=== PATIENT | female | born 1955 | race Caucasian/White ===

== ENCOUNTER 2017-01-24 18:11 | Inpatient (IN) | payer MEDICARE, MEDICAID ==
[2017-01-24] MEDS ORDERED: Albuterol/Ipratropium NEB.SOL* Albuterol 2.5 MG/Ipratropium 0.5 MG 3 ML INH ONE ×2 (19:00→20:54)
[2017-01-24] MEDS ORDERED: methylPREDNISolone 125 MG* 2 ML VIAL IV ONE (19:00)
[2017-01-24 19:31] LABS: Hematocrit 36 % (35-47); Hemoglobin 11.4 g/dl (12.0-16.0); Mean Corpuscular HGB Conc 32 g/dl (31-36); Mean Corpuscular Hemoglobin 27 pg (27-31); Mean Corpuscular Volume 84 fL (80-97); Mean Platelet Volume 9 um3 (7.4-10.4); Red Blood Count 4.27 10^6/ul (4.0-5.4); Red Cell Distribution Width 16 % (10.5-15); White Blood Count 7.2 10^3/ul (3.5-10.8)
--- NOTE | 2017-01-24 19:36 | RAD ---
Indication: Shortness of breath. Single frontal view of the chest performed at 1905 hours was reviewed. Comparison is made with previous exam dated April 16, 2016. No mediastinal shift is noted. Heart is of normal size and configuration. Lung florence appear clear. IMPRESSION: NO ACTIVE CARDIOPULMONARY DISEASE IS NOTED.
[2017-01-24 19:46] LABS: Albumin 3.6 g/dL (3.2-5.2); BUN/Creatinine Ratio 8.5 (8-20); Calcium 9.1 mg/dL (8.6-10.3); EGFR African American 91.8 (>60); EGFR Non-African American 71.4 (>60); Globulin 2.4 g/dL (2-4); Potassium 4.5 mmol/L (3.5-5.0); Total Bilirubin 0.4 mg/dL (0.2-1.0)
[2017-01-24] MEDS ORDERED: Nicotine Inhaler* 10 MG AMP INH ONE (21:39)
[2017-01-24] MEDS ORDERED: Mouth Piece, Nicotine* 1 EACH CARTRIDGE ONE (21:49)
--- NOTE | 2017-01-24 22:46 | ED ---
Elkin Laboy Erika, scribed for Elliott Tang MD on 01/24/17 at 1946 . Shortness of Breath - HPI Summary HPI Summary: Patient is a 61-year-old female presenting to the ED with a CC of SOB for the past few weeks, worse the past few days. SOB is constant but is aggravated by exertion. She denies fever. Pt was given a nebulizer by EMS which slightly improved symptoms. Pt is a smoker who is trying to quit - she is down to 1/2 PPD. Hx COPD. Pt uses an inhaler. She is not currently taking prednisone. - History of Current Complaint Chief Complaint: EDShortnessOfBreath Time Seen by Provider: 01/24/17 18:23 Hx Obtained From: Patient Onset/Duration: Gradual Onset, Lasting Weeks, Worse Since - 2 days Timing: Constant Current Severity: Moderate Dyspnea At: Exertion - Allergy/Home Medications Allergies/Adverse Reactions: Allergies Allergy/AdvReac Type Severity Reaction Status Date / Time Bupropion [From Wellbutrin] Allergy Severe Agitation Verified 04/02/16 11:47 Cephalosporins Allergy Severe Agitation Verified 04/02/16 11:47 Penicillins [PCN] Allergy Intermediate Hives Verified 04/02/16 11:47 Chlorpromazine AdvReac Severe Diarrhea Verified 04/02/16 11:47 Erythromycin AdvReac Intermediate Diarrhea Verified 04/02/16 11:47 Tobramycin AdvReac Intermediate Diarrhea Verified 04/02/16 11:47 Home Medications: Home Medications Albuterol Sulfate [Proair Respiclick] 108 mcg IN Q4H PRN 01/24/17 [History Confirmed 01/24/17] Fluticasone/Vilanterol MDI(NF) [Breo Ellipta MDI (NF)] 1 puff INH DAILY [History Confirmed 01/24/17] Metoprolol Tartrate [Lopressor] 25 mg PO BID 01/24/17 [History Confirmed ] Warfarin TAB(*) [Coumadin TAB(*)] 5 mg PO DAILY 01/24/17 [History Confirmed ] PMH/Surg Hx/FS Hx/Imm Hx Endocrine/Hematology History: Reports: Hx Anticoagulant Therapy, Other Endocrine /Hematological Disorders - L leg DVT Denies: Hx Diabetes, Hx Systemic Lupus Erythematosus, Hx Thyroid Disease Cardiovascular History: Reports: Hx Angina, Hx Coronary Artery Disease, Hx Deep Vein Thrombosis, Hx Hypercholesterolemia, Hx Hypertension, Hx Peripheral Vascular Disease, Other Cardiovascular Problems/Disorders - PERIPHERAL ARTERY DISEASE Denies: Hx Congestive Heart Failure, Hx Pacemaker/ICD Respiratory History: Reports: Hx Asthma, Hx Chronic Bronchitis, Hx Chronic Obstructive Pulmonary Disease (COPD), Hx Pneumonia, Hx Seasonal Allergies, Other Respiratory Problems/Disorders - Emphysema Denies: Hx Cystic Fibrosis, Hx Lung Cancer, Hx Pleural Effusion, Hx Pulmonary Edema, Hx Pulmonary Embolism, Hx Sleep Apnea GI History: Reports: Hx Gall Bladder Disease - removed, Hx Gastroesophageal Reflux Disease, Hx Irritable Bowel, Other GI Disorders - hernia repair X 2 Denies: Hx Cirrhosis, Hx Crohn's Disease, Hx Diverticulosis History: Denies: Hx Dialysis, Hx Renal Disease Musculoskeletal History: Denies: Hx Arthritis, Hx Rheumatoid Arthritis, Hx Osteoporosis Sensory History: Reports: Hx Contacts or Glasses Denies: Hx Glaucoma, Hx Deafness, Hx Hearing Aid, Hx Hearing Problem Opthamlomology History: Reports: Hx Contacts or Glasses Denies: Hx Glaucoma Neurological History: Denies: Hx Headaches, Hx Seizures, Hx Transient Ischemic Attacks (TIA) Psychiatric History: Reports: Hx Anxiety, Hx Depression, Hx Inpatient Treatment , Hx Community Mental Health Tx, Hx Schizophrenia, Hx Bipolar Disorder, Hx Suicide Attempt Denies: Hx Eating Disorder, Hx Panic Disorder, Hx of Violent Episodes Against Others - Cancer History Hx Chemotherapy: No - Surgical History Surgery Procedure, Year, and Place: bilat thumb repairs, hernia repairs X 2, cholecystectomy, appendectomy Hx Anesthesia Reactions: No - Immunization History Date of Tetanus Vaccine: unknown Infectious Disease History: No Infectious Disease History: Denies: Hx Clostridium Difficile, Hx Hepatitis, Hx Human Immunodeficiency Virus (HIV), Hx Shingles, Hx Tuberculosis, Traveled Outside the [place] in Last 30 Days - Family History Known Family History: Negative: Cardiac Disease, Hypertension, Diabetes - Social History Alcohol Use: Rare Hx Substance Use: No Substance Use Type: Reports: None Hx Tobacco Use: Yes Smoking Status (MU): Heavy Every Day Tobacco Smoker Type: Cigarettes Amount Used/How Often: half a pack a day Have You Smoked in the Last Year: Yes Review of Systems Negative: Fever Positive: Shortness Of Breath All Other Systems Reviewed And Are Negative: Yes Physical Exam Triage Information Reviewed: Yes Vital Signs On Initial Exam: Initial Vitals Temp Pulse Resp BP Pulse Ox 98.9 F 90 24 101/52 95 01/24/17 18:17 01/24/17 18:17 01/24/17 18:17 01/24/17 18:17 01/24/17 18:17 Vital Signs Reviewed: Yes Appearance: Positive: Well-Appearing - but appears older than her stated age, No Pain Distress Skin: Positive: Warm, Skin Color Reflects Adequate Perfusion, Dry Head/Face: Positive: Normal Head/Face Inspection Eyes: Positive: Normal ENT: Positive: Normal ENT inspection Neck: Positive: Supple, Nontender Respiratory/Lung Sounds: Positive: Decreased Breath Sounds, Wheezes, Other - Tachypnic Cardiovascular: Positive: RRR Abdomen Description: Positive: Nontender, Soft Bowel Sounds: Positive: Present Musculoskeletal: Positive: Normal Neurological: Positive: Normal Psychiatric: Positive: Affect/Mood Appropriate Diagnostics - Vital Signs Vital Signs Temp Pulse Resp BP Pulse Ox 01/24/17 18:17 98.9 F 90 24 101/52 95 - Laboratory Lab Results: Lab Results 01/24/17 01/24/17 01/24/17 Range/Units 19:20 19:20 19:20 WBC 7.2 (3.5-10.8) 10^3/ul RBC 4.27 (4.0-5.4) 10^6/ul Hgb 11.4 L (12.0-16.0) g/dl Hct 36 (35-47) % MCV 84 (80-97) fL MCH 27 (27-31) pg MCHC 32 (31-36) g/dl RDW 16 H (10.5-15) % Plt Count 153 (150-450) 10^3/ul MPV 9 (7.4-10.4) um3 Neut % (Auto) 67.3 (38-83) % Lymph % (Auto) 21.8 L (25-47) % [place] % (Auto) 6.8 (1-9) % Eos % (Auto) 2.7 (0-6) % Baso % (Auto) 1.4 (0-2) % Absolute Neuts (auto) 4.9 (1.5-7.7) 10^3/ul Absolute Lymphs (auto) 1.6 (1.0-4.8) 10^3/ul Absolute Monos (auto) 0.5 (0-0.8) 10^3/ul Absolute Eos (auto) 0.2 (0-0.6) 10^3/ul Absolute Basos (auto) 0.1 (0-0.2) 10^3/ul Absolute Nucleated RBC 0 10^3/ul Nucleated RBC % 0 D-Dimer, Quantitative < 200 (Less Than 230) ng/mL Sodium 139 (133-145) mmol/L Potassium 4.5 (3.5-5.0) mmol/L Chloride 107 (101-111) mmol/L Carbon Dioxide 31 (22-32) mmol/L Anion Gap 1 L (2-11) mmol/L BUN 7 (6-24) mg/dL Creatinine 0.82 (0.51-0.95) mg/dL Est GFR ( Amer) 91.8 (>60) Est GFR (Non-Af Amer) 71.4 (>60) BUN/Creatinine Ratio 8.5 (8-20) Glucose 93 (70-100) mg/dL Lactic Acid (0.5-2.0) mmol/L Calcium 9.1 (8.6-10.3) mg/dL Total Bilirubin 0.40 (0.2-1.0) mg/dL AST 9 L (13-39) U/L ALT 5 L (7-52) U/L Alkaline Phosphatase 96 (34-104) U/L Troponin I 0.00 (<0.04) ng/mL B-Natriuretic Peptide ( - 100) pg/mL Total Protein 6.0 L (6.4-8.9) g/dL Albumin 3.6 (3.2-5.2) g/dL Globulin 2.4 (2-4) g/dL Albumin/Globulin Ratio 1.5 (1-3) 01/24/17 01/24/17 Range/Units 19:20 19:20 WBC (3.5-10.8) 10^3/ul RBC (4.0-5.4) 10^6/ul Hgb (12.0-16.0) g/dl Hct (35-47) % MCV (80-97) fL MCH (27-31) pg MCHC (31-36) g/dl RDW (10.5-15) % Plt Count (150-450) 10^3/ul MPV (7.4-10.4) um3 Neut % (Auto) (38-83) % Lymph % (Auto) (25-47) % [place] % (Auto) (1-9) % Eos % (Auto) (0-6) % Baso % (Auto) (0-2) % Absolute Neuts (auto) (1.5-7.7) 10^3/ul Absolute Lymphs (auto) (1.0-4.8) 10^3/ul Absolute Monos (auto) (0-0.8) 10^3/ul Absolute Eos (auto) (0-0.6) 10^3/ul Absolute Basos (auto) (0-0.2) 10^3/ul Absolute Nucleated RBC 10^3/ul Nucleated RBC % D-Dimer, Quantitative (Less Than 230) ng/mL Sodium (133-145) mmol/L Potassium (3.5-5.0) mmol/L Chloride (101-111) mmol/L Carbon Dioxide (22-32) mmol/L Anion Gap (2-11) mmol/L BUN (6-24) mg/dL Creatinine (0.51-0.95) mg/dL Est GFR ( Amer) (>60) Est GFR (Non-Af Amer) (>60) BUN/Creatinine Ratio (8-20) Glucose (70-100) mg/dL Lactic Acid 0.8 (0.5-2.0) mmol/L Calcium (8.6-10.3) mg/dL Total Bilirubin (0.2-1.0) mg/dL AST (13-39) U/L ALT (7-52) U/L Alkaline Phosphatase (34-104) U/L Troponin I (<0.04) ng/mL B-Natriuretic Peptide 19 ( - 100) pg/mL Total Protein (6.4-8.9) g/dL Albumin (3.2-5.2) g/dL Globulin (2-4) g/dL Albumin/Globulin Ratio (1-3) Result Diagrams: 01/24/17 19:20 01/24/17 19:20 Lab Statement: Any lab studies that have been ordered have been reviewed, and results considered in the medical decision making process. - Radiology CXR Radiology Interpretation Completed By: Radiologist - IMPRESSION: NO ACTIVE CARDIOPULMONARY DISEASE IS NOTED. - EKG 18:31 Cardiac Rate: NL - at 91 bpm EKG Rhythm: Sinus Rhythm ST Segment: Non-Specific Course/Dx - Course Course Of Treatment: She improved some here with treatment but not enough to turn around. I have no evidence of acute infection. - Diagnoses Provider Diagnoses: COPD exacerbation - Physician Notifications Discussed Care of Patient With: Dr. Hugo (hospitalist) at 21:50 - agrees to admit - Critical Care Time Critical Care Time: 30-74 min Discharge - Discharge Plan Condition: Stable Disposition: ADMITTED TO [facility] Referrals: Tom Schrader MD [Primary Care Provider] - The documentation as recorded by the Elkin kiran Erika accurately reflects the service I personally performed and the decisions made by me, Elliott Tang MD.
--- NOTE | 2017-01-24 23:44 | HP ---
H&P (Free Text) History and Physical: PCP: Reuben Schrader MD Date/Time of Evaluation: 01/24/2017 9511 CC: SOB HPI: Mrs Camejo is a 61YO female HX COPD presenting with 2-3 days of worseng SOB and cough associated with subjective F/C, sweats, & diarrhea. She denies N/V , chest pain, palpitations, light-headedness, or other issues. SOB is worse with exertion, better with rest and albuterol. She continues to smoke 1/2 PPD, but is attempting cessation. PMedHx COPD PAOD HTN HLD HX DVT IBS bipolar disorder schizophrenia anxiety depression Ambulatory Orders Montelukast Sodium TAB* [Singulair 10 MG TAB*] 10 mg PO DAILY 10/29/12 Esomeprazole(NF) [Nexium(NF)] 40 mg PO DAILY 09/29/15 Al Hydrox/Mg Hydrox/Simet LIQ* [Maalox Plus*] 30 ml PO DAILY PRN 12/29/15 Fellows Carbonate ER TAB* 300 mg PO BID 12/29/15 Mirtazapine 7.5 mg PO BEDTIME 12/30/15 OLANzapine TAB* [Zyprexa 10 MG TAB*] 20 mg PO BEDTIME 12/30/15 Albuterol Sulfate [Proair Respiclick] 2 puff INH Q4H PRN 01/03/16 Atorvastatin* [Lipitor 10 MG*] 10 mg PO 1700 #30 tab 01/10/16 Isosorbide Mononitrate ER TAB* [Imdur ER TAB*] 30 mg PO DAILY #30 tab.er Gabapentin [Neurontin] 100 mg PO BID 01/19/16 Albuterol Sulfate [Proair Respiclick] 108 mcg IN Q4H PRN 01/24/17 Fluticasone/Vilanterol MDI(NF) [Breo Ellipta MDI (NF)] 1 puff INH DAILY Metoprolol Tartrate [Lopressor] 25 mg PO BID 01/24/17 Warfarin TAB(*) [Coumadin TAB(*)] 5 mg PO DAILY 01/24/17 Allergies Bupropion [From Wellbutrin] Allergy (Severe, Verified 04/02/16 11:47) Agitation seizures. Cephalosporins Allergy (Severe, Verified 04/02/16 11:47) Agitation seizures. Penicillins [PCN] Allergy (Intermediate, Verified 04/02/16 11:47) Hives Chlorpromazine Adverse Reaction (Severe, Verified 04/02/16 11:47) Diarrhea and hives. Erythromycin Adverse Reaction (Intermediate, Verified 04/02/16 11:47) Diarrhea Tobramycin Adverse Reaction (Intermediate, Verified 04/02/16 11:47) Diarrhea PSurgHx appendectomy hernia repair RLE stent SocHx: 1/2 PPD cigarettes w/ ~40PYHX, denies alcohol and recreational drugs; single, lives alone; full code status FamHx: positive for COPD, HTN, HLD, CAD ROS: as above, otherwise reviewed and all were negative Constitutional: NAD, normally developed, obese white female vitals: Vital Signs Temp 36.3 C 01/24/17 23:56 Pulse 95 01/25/17 00:00 Resp 26 01/24/17 23:56 BP 127/63 01/25/17 00:00 Pulse Ox 94 01/25/17 00:00 Intake & Output 01/24/17 01/24/17 01/25/17 11:59 23:59 11:59 Intake Total 2 Balance 2 Weight 77.7 kg Intake: IV Fluids 2 HEENM: atraumatic; sclera/conjunctiva: non-icteric/clear; hearing: clinically intact; oropharynx: clear, mucosa moist Neck: soft tissue: non-tender; thyroid: normal Pulmonary: moderate end-inspiratory and end-expiratory wheeze, fair to poor aeration, no accessory muscle use CV: RR/RR, normal S1S2, no carotid bruit, no jugular venous distention, 2+ B DP/ PT, no edema Abdominal: soft, non-distended, non-tender, no rebound/guarding/rigidity, normoactive bowel sounds, no hepatosplenomegaly or masses, no costovertebral angle tenderness Musculoskeletal: general: grossly intact; gait: stable Integumental: normal appearance and texture of exposed skin Psychiatric orientation: AA&O to PPS affect: calm mood: cooperative eye contact: good content: reliable responses: timely insight: fair to poor Testing: Lab Results 01/24/17 01/24/17 01/24/17 Range/Units 19:20 19:20 19:20 WBC 7.2 (3.5-10.8) 10^3/ul RBC 4.27 (4.0-5.4) 10^6/ul Hgb 11.4 L (12.0-16.0) g/dl Hct 36 (35-47) % MCV 84 (80-97) fL MCH 27 (27-31) pg MCHC 32 (31-36) g/dl RDW 16 H (10.5-15) % Plt Count 153 (150-450) 10^3/ul MPV 9 (7.4-10.4) um3 Neut % (Auto) 67.3 (38-83) % Lymph % (Auto) 21.8 L (25-47) % Rich % (Auto) 6.8 (1-9) % Eos % (Auto) 2.7 (0-6) % Baso % (Auto) 1.4 (0-2) % Absolute Neuts (auto) 4.9 (1.5-7.7) 10^3/ul Absolute Lymphs (auto) 1.6 (1.0-4.8) 10^3/ul Absolute Monos (auto) 0.5 (0-0.8) 10^3/ul Absolute Eos (auto) 0.2 (0-0.6) 10^3/ul Absolute Basos (auto) 0.1 (0-0.2) 10^3/ul Absolute Nucleated RBC 0 10^3/ul Nucleated RBC % 0 D-Dimer, Quantitative < 200 (Less Than 230) ng/mL Sodium 139 (133-145) mmol/L Potassium 4.5 (3.5-5.0) mmol/L Chloride 107 (101-111) mmol/L Carbon Dioxide 31 (22-32) mmol/L Anion Gap 1 L (2-11) mmol/L BUN 7 (6-24) mg/dL Creatinine 0.82 (0.51-0.95) mg/dL Est GFR ( Amer) 91.8 (>60) Est GFR (Non-Af Amer) 71.4 (>60) BUN/Creatinine Ratio 8.5 (8-20) Glucose 93 (70-100) mg/dL Lactic Acid (0.5-2.0) mmol/L Calcium 9.1 (8.6-10.3) mg/dL Total Bilirubin 0.40 (0.2-1.0) mg/dL AST 9 L (13-39) U/L ALT 5 L (7-52) U/L Alkaline Phosphatase 96 (34-104) U/L Troponin I 0.00 (<0.04) ng/mL B-Natriuretic Peptide ( - 100) pg/mL Total Protein 6.0 L (6.4-8.9) g/dL Albumin 3.6 (3.2-5.2) g/dL Globulin 2.4 (2-4) g/dL Albumin/Globulin Ratio 1.5 (1-3) 01/24/17 01/24/17 Range/Units 19:20 19:20 WBC (3.5-10.8) 10^3/ul RBC (4.0-5.4) 10^6/ul Hgb (12.0-16.0) g/dl Hct (35-47) % MCV (80-97) fL MCH (27-31) pg MCHC (31-36) g/dl RDW (10.5-15) % Plt Count (150-450) 10^3/ul MPV (7.4-10.4) um3 Neut % (Auto) (38-83) % Lymph % (Auto) (25-47) % Rich % (Auto) (1-9) % Eos % (Auto) (0-6) % Baso % (Auto) (0-2) % Absolute Neuts (auto) (1.5-7.7) 10^3/ul Absolute Lymphs (auto) (1.0-4.8) 10^3/ul Absolute Monos (auto) (0-0.8) 10^3/ul Absolute Eos (auto) (0-0.6) 10^3/ul Absolute Basos (auto) (0-0.2) 10^3/ul Absolute Nucleated RBC 10^3/ul Nucleated RBC % D-Dimer, Quantitative (Less Than 230) ng/mL Sodium (133-145) mmol/L Potassium (3.5-5.0) mmol/L Chloride (101-111) mmol/L Carbon Dioxide (22-32) mmol/L Anion Gap (2-11) mmol/L BUN (6-24) mg/dL Creatinine (0.51-0.95) mg/dL Est GFR ( Amer) (>60) Est GFR (Non-Af Amer) (>60) BUN/Creatinine Ratio (8-20) Glucose (70-100) mg/dL Lactic Acid 0.8 (0.5-2.0) mmol/L Calcium (8.6-10.3) mg/dL Total Bilirubin (0.2-1.0) mg/dL AST (13-39) U/L ALT (7-52) U/L Alkaline Phosphatase (34-104) U/L Troponin I (<0.04) ng/mL B-Natriuretic Peptide 19 ( - 100) pg/mL Total Protein (6.4-8.9) g/dL Albumin (3.2-5.2) g/dL Globulin (2-4) g/dL Albumin/Globulin Ratio (1-3) ECG, personally reviewed: NSR rate 91, Q-waves in II/III/AVF CXR, personally reviewed: IMPRESSION: NO ACTIVE CARDIOPULMONARY DISEASE IS NOTED. Impression: 61F presenting with COPD exacerbation DIAGNOSIS & PLAN Primary COPD exacerbation : albuterol nebs : mometasone/formoterol : tiotropium : methylprednisolone : guaifenesin : azithromycin : incentive spirometry : smoking cessation : supplemental oxygen : supportive care Secondary HTN : continue metoprolol HLD : continue atorvastatin HX DVT : continue warfarin bipolar disorder : no acute issues : continue lithium schizophrenia : no acute issues : continue olanzapine depression : continue mirtazapine GERD : omeprazole Admission Rational: observation for COPD exacerbation DVTp: warfarin Code Status: full
[2017-01-25] MEDS ORDERED: Albuterol 2.5 MG/3 ML NEB.SOL* (0.083%) INH PRN (02:30)
[2017-01-25] MEDS ORDERED: Acetaminophen TAB* 325 MG PO PRN (02:30)
[2017-01-25] MEDS ORDERED: Melatonin (NF) 3 MG TAB PO PRN (02:30)
[2017-01-25] MEDS ORDERED: Ondansetron INJ* 2 MG/ML VIAL IV PRN (02:31)
[2017-01-25] MEDS: Azithromycin TAB* 250 MG PO SCH ×2 (03:06→08:58)
[2017-01-25] MEDS: NS 0.9% 1000 ML* 1,000 ML IV SCH ×2 (03:06→16:33)
[2017-01-25] MEDS: Nicotine Inhaler* 10 MG AMP INH PRN ×3 (03:08→16:40)
[2017-01-25] MEDS: Omeprazole CAP* 20 MG PO SCH (05:41)
[2017-01-25] MEDS ORDERED: Albuterol 2.5 MG/3 ML NEB.SOL* (0.083%) INH SCH (07:00)
[2017-01-25] MEDS: Mometasone/Formoter 200/5 MDI INH SCH ×2 (08:07→20:51)
[2017-01-25] MEDS: Tiotropium CAP.INH* CAP.INH/18 MCG INH SCH (08:08)
[2017-01-25] MEDS ORDERED: Spiriva Inhaler DEVICE* 1 EACH DEVICE INH ONE (09:00)
[2017-01-25] MEDS: Gabapentin CAP(*) 100 MG PO SCH ×2 (09:14→20:05)
[2017-01-25] MEDS: Docusate CAP* 100 MG PO SCH ×2 (09:14→20:04)
[2017-01-25] MEDS: Isosorbide Mononitrate ER TAB* 30 MG PO SCH (09:15)
[2017-01-25] MEDS: guaiFENesin ER TAB 600 MG PO SCH ×2 (09:15→20:04)
[2017-01-25] MEDS: Montelukast Sodium TAB* 10 MG PO SCH (09:16)
[2017-01-25] MEDS: Metoprolol Tartrate TAB* 25 MG PO SCH ×2 (09:16→20:08)
[2017-01-25] MEDS: CMCS Lithium Carbonate ER (NF) 300 MG TAB.ER PO SCH ×2 (09:19→20:06)
[2017-01-25] MEDS: predniSONE TAB* 20 MG PO SCH (10:30)
--- NOTE | 2017-01-25 13:33 | PN ---
Subjective Date of Service: 01/25/17 Interval History: Ms. Camejo continues to report shortness of breath and cough. She does not feel that she is back to her baseline though she has improved a bit since admission. She denies chest pain. She denies nausea or abdominal pain and is tolerating oral intake well. Family History: Unchanged from Admission Social History: Unchanged from Admission Past Medical History: Unchanged from Admission Objective Active Medications: Acetaminophen (Tylenol Tab*) 650 mg PO Q6H PRN Albuterol (Ventolin 2.5 Mg/3 Ml Neb.Tania*) 2.5 mg INH Q2H PRN Atorvastatin Calcium (Lipitor*) 10 mg PO 1700 ELI Azithromycin (Zithromax Tab*) 500 mg PO DAILY ELI Docusate Sodium (Colace Cap*) 200 mg PO BID ELI Gabapentin (Neurontin Cap(*)) 100 mg PO BID ELI Guaifenesin (Mucinex*) 1,200 mg PO BID ELI Sodium Chloride (Ns 0.9% 1000 Ml*) 1,000 mls @ 75 mls/hr IV PER RATE ELI Isosorbide Mononitrate (Imdur Er Tab*) 30 mg PO DAILY ELI Bedford Carbonate ([place]ford Carbonate Er (Nf)) 300 mg PO BID ELI Melatonin (Melatonin (Nf)) 3 mg PO BEDTIME PRN; Protocol Metoprolol Tartrate (Lopressor Tab*) 25 mg PO BID ELI Mirtazapine (Remeron Tab*) 7.5 mg PO BEDTIME ELI Mometasone Furoate/Formoterol Fumar (Dulera 200/5 Mdi*) 2 puff INH BID ELI Montelukast Sodium (Singulair Tab*) 10 mg PO DAILY ELI Nicotine (Nicotine Inhaler*) 10 mg INH Q2H PRN Olanzapine (Zyprexa Tab*) 20 mg PO BEDTIME ELI Omeprazole (Prilosec Cap*) 20 mg PO DAILY@0600 ELI Ondansetron HCl (Zofran Inj*) 4 mg IV Q6H PRN Prednisone (Deltasone Tab*) 40 mg PO DAILY ELI Tiotropium [place] (Spiriva Cap.Inh*) 1 cap INH DAILY ELI Warfarin Sodium (Coumadin Tab(*)) 5 mg PO 1700 ELI Vital Signs 01/24/17 01/24/17 01/25/17 23:45 23:56 00:00 Temperature 97.4 F Pulse Rate 94 99 95 Respiratory 26 26 Rate Blood Pressure 121/52 157/47 127/63 (mmHg) O2 Sat by Pulse 91 96 94 Oximetry 01/25/17 01/25/17 01/25/17 03:15 08:07 09:14 Temperature 97.6 F 97.6 F Pulse Rate 95 91 Respiratory 24 15 16 Rate Blood Pressure 142/64 135/72 (mmHg) O2 Sat by Pulse 91 97 Oximetry 01/25/17 01/25/17 01/25/17 09:25 11:14 11:45 Temperature 97.9 F Pulse Rate 94 66 Respiratory 18 16 Rate Blood Pressure 133/59 (mmHg) O2 Sat by Pulse 94 99 Oximetry Oxygen Devices in Use Now: None Appearance: Female lying in bed in NAD Eyes: No Scleral Icterus Ears/Nose/Mouth/Throat: Mucous Membranes Moist Respiratory: Symmetrical Chest Expansion and Respiratory Effort, - - Coarse breath sounds that cleared well with cough, no wheeze Cardiovascular: NL Sounds; No Murmurs; No JVD, No Edema Abdominal: NL Sounds; No Tenderness; No Distention Extremities: No Edema Skin: No Rash or Ulcers Neurological: Alert and Oriented x 3, NL Muscle Strength and Tone Nutrition: Taking PO's Result Diagrams: 01/24/17 19:20 01/24/17 19:20 Additional Lab and Data: Lab Results 01/24/17 01/24/17 01/24/17 Range/Units 19:20 19:20 19:20 WBC 7.2 (3.5-10.8) 10^3/ul RBC 4.27 (4.0-5.4) 10^6/ul Hgb 11.4 L (12.0-16.0) g/dl Hct 36 (35-47) % MCV 84 (80-97) fL MCH 27 (27-31) pg MCHC 32 (31-36) g/dl RDW 16 H (10.5-15) % Plt Count 153 (150-450) 10^3/ul MPV 9 (7.4-10.4) um3 Neut % (Auto) 67.3 (38-83) % Lymph % (Auto) 21.8 L (25-47) % Nolan % (Auto) 6.8 (1-9) % Eos % (Auto) 2.7 (0-6) % Baso % (Auto) 1.4 (0-2) % Absolute Neuts (auto) 4.9 (1.5-7.7) 10^3/ul Absolute Lymphs (auto) 1.6 (1.0-4.8) 10^3/ul Absolute Monos (auto) 0.5 (0-0.8) 10^3/ul Absolute Eos (auto) 0.2 (0-0.6) 10^3/ul Absolute Basos (auto) 0.1 (0-0.2) 10^3/ul Absolute Nucleated RBC 0 10^3/ul Nucleated RBC % 0 D-Dimer, Quantitative < 200 (Less Than 230) ng/mL Sodium 139 (133-145) mmol/L Potassium 4.5 (3.5-5.0) mmol/L Chloride 107 (101-111) mmol/L Carbon Dioxide 31 (22-32) mmol/L Anion Gap 1 L (2-11) mmol/L BUN 7 (6-24) mg/dL Creatinine 0.82 (0.51-0.95) mg/dL Est GFR ( Amer) 91.8 (>60) Est GFR (Non-Af Amer) 71.4 (>60) BUN/Creatinine Ratio 8.5 (8-20) Glucose 93 (70-100) mg/dL Lactic Acid (0.5-2.0) mmol/L Calcium 9.1 (8.6-10.3) mg/dL Total Bilirubin 0.40 (0.2-1.0) mg/dL AST 9 L (13-39) U/L ALT 5 L (7-52) U/L Alkaline Phosphatase 96 (34-104) U/L Troponin I 0.00 (<0.04) ng/mL B-Natriuretic Peptide ( - 100) pg/mL Total Protein 6.0 L (6.4-8.9) g/dL Albumin 3.6 (3.2-5.2) g/dL Globulin 2.4 (2-4) g/dL Albumin/Globulin Ratio 1.5 (1-3) 01/24/17 01/24/17 Range/Units 19:20 19:20 WBC (3.5-10.8) 10^3/ul RBC (4.0-5.4) 10^6/ul Hgb (12.0-16.0) g/dl Hct (35-47) % MCV (80-97) fL MCH (27-31) pg MCHC (31-36) g/dl RDW (10.5-15) % Plt Count (150-450) 10^3/ul MPV (7.4-10.4) um3 Neut % (Auto) (38-83) % Lymph % (Auto) (25-47) % Nolan % (Auto) (1-9) % Eos % (Auto) (0-6) % Baso % (Auto) (0-2) % Absolute Neuts (auto) (1.5-7.7) 10^3/ul Absolute Lymphs (auto) (1.0-4.8) 10^3/ul Absolute Monos (auto) (0-0.8) 10^3/ul Absolute Eos (auto) (0-0.6) 10^3/ul Absolute Basos (auto) (0-0.2) 10^3/ul Absolute Nucleated RBC 10^3/ul Nucleated RBC % D-Dimer, Quantitative (Less Than 230) ng/mL Sodium (133-145) mmol/L Potassium (3.5-5.0) mmol/L Chloride (101-111) mmol/L Carbon Dioxide (22-32) mmol/L Anion Gap (2-11) mmol/L BUN (6-24) mg/dL Creatinine (0.51-0.95) mg/dL Est GFR ( Amer) (>60) Est GFR (Non-Af Amer) (>60) BUN/Creatinine Ratio (8-20) Glucose (70-100) mg/dL Lactic Acid 0.8 (0.5-2.0) mmol/L Calcium (8.6-10.3) mg/dL Total Bilirubin (0.2-1.0) mg/dL AST (13-39) U/L ALT (7-52) U/L Alkaline Phosphatase (34-104) U/L Troponin I (<0.04) ng/mL B-Natriuretic Peptide 19 ( - 100) pg/mL Total Protein (6.4-8.9) g/dL Albumin (3.2-5.2) g/dL Globulin (2-4) g/dL Albumin/Globulin Ratio (1-3) Assess/Plan/Problems-Billing Assessment: Ms. Camejo is a 61 yo female with a PMH of COPD and bipolar disorder who was admitted on 01/24/17 with copd exacerbation. - Patient Problems (1) COPD exacerbation Comment: Improving slowly. Suspect anxiety playing significant component as well as persistent smoking. Continue prednisone, azithromycin, duonebs, spiriva, and dulera. Home O2 at night. (2) Adjustment disorder with mixed anxiety and depressed mood Comment: Continue home meds. (3) Nicotine dependence Comment: Smoking cessation strongly encouraged, > 5 minutes spend in counseling. (4) Hx of deep venous thrombosis Comment: Increased coumadin based on subtherapeutic INR. (5) Full code status (6) DVT prophylaxis Comment: Coumadin with SCDs. Status and Disposition: Switch to inpatient with need for additional night in hospital based on slow progress of tx for COPD exacerbation. Anticipate discharge to home when medically stable.
[2017-01-25] MEDS ORDERED: Warfarin TAB(*) 6 MG PO SCH (17:00)
[2017-01-25] MEDS ORDERED: Warfarin TAB(*) 5 MG PO SCH (17:00)
[2017-01-25] MEDS ORDERED: Atorvastatin* 10 MG TAB PO SCH (17:00)
[2017-01-25] MEDS ORDERED: Mirtazapine TAB* 15 MG PO SCH (21:00)
[2017-01-25] MEDS ORDERED: OLANzapine TAB* 10 MG PO SCH (21:00)
[2017-01-26] MEDS: NS 0.9% 1000 ML* 1,000 ML IV SCH (06:25)
[2017-01-26] MEDS: Omeprazole CAP* 20 MG PO SCH (06:25)
[2017-01-26] MEDS: Mometasone/Formoter 200/5 MDI INH SCH (07:27)
[2017-01-26] MEDS: Tiotropium CAP.INH* CAP.INH/18 MCG INH SCH (07:27)
[2017-01-26 07:51] VITALS: BP 115/56
[2017-01-26] MEDS ORDERED: methylPREDNISolone SOD 40 MG* 1 ML VIAL IV SCH (09:00)
[2017-01-26] MEDS: Nicotine Inhaler* 10 MG AMP INH PRN (09:50)
[2017-01-26] MEDS: Gabapentin CAP(*) 100 MG PO SCH (09:51)
[2017-01-26] MEDS: Docusate CAP* 100 MG PO SCH (09:51)
[2017-01-26] MEDS: Metoprolol Tartrate TAB* 25 MG PO SCH (09:52)
[2017-01-26] MEDS: Montelukast Sodium TAB* 10 MG PO SCH (09:52)
[2017-01-26] MEDS: guaiFENesin ER TAB 600 MG PO SCH (09:52)
[2017-01-26] MEDS: Isosorbide Mononitrate ER TAB* 30 MG PO SCH (09:52)
[2017-01-26] MEDS: predniSONE TAB* 20 MG PO SCH (09:53)
[2017-01-26] MEDS: CMCS Lithium Carbonate ER (NF) 300 MG TAB.ER PO SCH (09:55)
[2017-01-26] MEDS: Azithromycin TAB* 250 MG PO SCH (09:56)
--- NOTE | 2017-01-26 10:34 | PN ---
Subjective Date of Service: 01/26/17 Interval History: Ms. Camejo states that she is feeling better though she is not quite back to her baseline. She feels safe with the idea of going home and is considering staying with her son for a few days. She continues to have shortness of breath with ambulation but it has improved. She denies chest pain, nausea, or abdominal pain and is tolerating oral intake well. Family History: Unchanged from Admission Social History: Unchanged from Admission Past Medical History: Unchanged from Admission Objective Active Medications: Acetaminophen (Tylenol Tab*) 650 mg PO Q6H PRN PRN Reason: FEVER/PAIN Albuterol (Ventolin 2.5 Mg/3 Ml Neb.Tania*) 2.5 mg INH Q2H PRN PRN Reason: SOB/WHEEZING Atorvastatin Calcium (Lipitor*) 10 mg PO 1700 [facility] Last Admin: 01/25/17 16:40 Dose: 10 mg Azithromycin (Zithromax Tab*) 500 mg PO DAILY [facility] Stop: 01/28/17 09:01 Last Admin: 01/26/17 09:56 Dose: 500 mg Docusate Sodium (Colace Cap*) 200 mg PO BID [facility] Last Admin: 01/26/17 09:51 Dose: 200 mg Gabapentin (Neurontin Cap(*)) 100 mg PO BID [facility] Last Admin: 01/26/17 09:51 Dose: 100 mg Guaifenesin (Mucinex*) 1,200 mg PO BID [facility] Last Admin: 01/26/17 09:52 Dose: 1,200 mg Sodium Chloride (Ns 0.9% 1000 Ml*) 1,000 mls @ 75 mls/hr IV PER RATE [facility] Last Admin: 01/26/17 06:25 Dose: 75 mls/hr Isosorbide Mononitrate (Imdur Er Tab*) 30 mg PO DAILY [facility] Last Admin: 01/26/17 09:52 Dose: 30 mg [place] Carbonate ([place] Carbonate Er (Nf)) 300 mg PO BID [facility] Last Admin: 01/26/17 09:55 Dose: 300 mg Melatonin (Melatonin (Nf)) 3 mg PO BEDTIME PRN; Protocol PRN Reason: Sleep Metoprolol Tartrate (Lopressor Tab*) 25 mg PO BID [facility] Last Admin: 01/26/17 09:52 Dose: 25 mg Mirtazapine (Remeron Tab*) 7.5 mg PO BEDTIME [facility] Last Admin: 01/25/17 20:06 Dose: 7.5 mg Mometasone Furoate/Formoterol Fumar (Dulera 200/5 Mdi*) 2 puff INH BID [facility] Last Admin: 01/26/17 07:27 Dose: 2 puff Montelukast Sodium (Singulair Tab*) 10 mg PO DAILY [facility] Last Admin: 01/26/17 09:52 Dose: 10 mg Nicotine (Nicotine Inhaler*) 10 mg INH Q2H PRN PRN Reason: CRAVING Last Admin: 01/26/17 09:50 Dose: 10 mg Olanzapine (Zyprexa Tab*) 20 mg PO BEDTIME [facility] Last Admin: 01/25/17 20:07 Dose: 20 mg Omeprazole (Prilosec Cap*) 20 mg PO DAILY@0600 [facility] Last Admin: 01/26/17 06:25 Dose: 20 mg Ondansetron HCl (Zofran Inj*) 4 mg IV Q6H PRN PRN Reason: NAUSEA Last Admin: 01/25/17 05:45 Dose: 4 mg Pharmacy Profile Note (Coumadin Daily Reminder*) 1 note FOLLOW UP 1700 [facility] Last Admin: 01/25/17 16:44 Dose: 1 note Prednisone (Deltasone Tab*) 40 mg PO DAILY [facility] Last Admin: 01/26/17 09:53 Dose: 40 mg Tiotropium Central (Spiriva Cap.Inh*) 1 cap INH DAILY [facility] Last Admin: 01/26/17 07:27 Dose: 1 inh Warfarin Sodium (Coumadin Tab(*)) 6 mg PO 1700 [facility] PRN Reason: Protocol Last Admin: 01/25/17 16:40 Dose: 6 mg Vital Signs 01/25/17 01/25/17 01/25/17 15:19 19:24 19:36 Temperature 97.7 F 98.3 F Pulse Rate 57 84 Respiratory 22 18 20 Rate Blood Pressure 133/50 123/53 (mmHg) O2 Sat by Pulse 97 96 Oximetry 01/25/17 01/25/17 01/25/17 20:05 22:05 23:19 Temperature 98.2 F Pulse Rate 58 Respiratory 17 20 28 Rate Blood Pressure 128/47 (mmHg) O2 Sat by Pulse 99 Oximetry 01/26/17 01/26/17 01/26/17 00:00 03:27 07:29 Temperature 98.2 F 98.2 F Pulse Rate 61 63 Respiratory 24 22 Rate Blood Pressure 145/54 115/56 (mmHg) O2 Sat by Pulse 99 100 99 Oximetry 01/26/17 01/26/17 08:00 09:51 Temperature Pulse Rate Respiratory 20 20 Rate Blood Pressure (mmHg) O2 Sat by Pulse Oximetry Oxygen Devices in Use Now: None Appearance: Female sitting up in bed in NAD Eyes: No Scleral Icterus Ears/Nose/Mouth/Throat: Mucous Membranes Moist Neck: Trachea Midline Respiratory: Symmetrical Chest Expansion and Respiratory Effort, - - Minimal wheezing noted to left base, otherwise clear Cardiovascular: NL Sounds; No Murmurs; No JVD, No Edema Abdominal: NL Sounds; No Tenderness; No Distention Lymphatic: No Cervical Adenopathy Extremities: No Edema Skin: No Rash or Ulcers Neurological: Alert and Oriented x 3 Nutrition: Taking PO's Result Diagrams: 01/24/17 19:20 01/24/17 19:20 Additional Lab and Data: Lab Results 01/24/17 01/24/17 01/24/17 Range/Units 19:20 19:20 19:20 WBC 7.2 (3.5-10.8) 10^3/ul RBC 4.27 (4.0-5.4) 10^6/ul Hgb 11.4 L (12.0-16.0) g/dl Hct 36 (35-47) % MCV 84 (80-97) fL MCH 27 (27-31) pg MCHC 32 (31-36) g/dl RDW 16 H (10.5-15) % Plt Count 153 (150-450) 10^3/ul MPV 9 (7.4-10.4) um3 Neut % (Auto) 67.3 (38-83) % Lymph % (Auto) 21.8 L (25-47) % [place] % (Auto) 6.8 (1-9) % Eos % (Auto) 2.7 (0-6) % Baso % (Auto) 1.4 (0-2) % Absolute Neuts (auto) 4.9 (1.5-7.7) 10^3/ul Absolute Lymphs (auto) 1.6 (1.0-4.8) 10^3/ul Absolute Monos (auto) 0.5 (0-0.8) 10^3/ul Absolute Eos (auto) 0.2 (0-0.6) 10^3/ul Absolute Basos (auto) 0.1 (0-0.2) 10^3/ul Absolute Nucleated RBC 0 10^3/ul Nucleated RBC % 0 D-Dimer, Quantitative < 200 (Less Than 230) ng/mL Sodium 139 (133-145) mmol/L Potassium 4.5 (3.5-5.0) mmol/L Chloride 107 (101-111) mmol/L Carbon Dioxide 31 (22-32) mmol/L Anion Gap 1 L (2-11) mmol/L BUN 7 (6-24) mg/dL Creatinine 0.82 (0.51-0.95) mg/dL Est GFR ( Amer) 91.8 (>60) Est GFR (Non-Af Amer) 71.4 (>60) BUN/Creatinine Ratio 8.5 (8-20) Glucose 93 (70-100) mg/dL Lactic Acid (0.5-2.0) mmol/L Calcium 9.1 (8.6-10.3) mg/dL Total Bilirubin 0.40 (0.2-1.0) mg/dL AST 9 L (13-39) U/L ALT 5 L (7-52) U/L Alkaline Phosphatase 96 (34-104) U/L Troponin I 0.00 (<0.04) ng/mL B-Natriuretic Peptide ( - 100) pg/mL Total Protein 6.0 L (6.4-8.9) g/dL Albumin 3.6 (3.2-5.2) g/dL Globulin 2.4 (2-4) g/dL Albumin/Globulin Ratio 1.5 (1-3) 01/24/17 01/24/17 Range/Units 19:20 19:20 WBC (3.5-10.8) 10^3/ul RBC (4.0-5.4) 10^6/ul Hgb (12.0-16.0) g/dl Hct (35-47) % MCV (80-97) fL MCH (27-31) pg MCHC (31-36) g/dl RDW (10.5-15) % Plt Count (150-450) 10^3/ul MPV (7.4-10.4) um3 Neut % (Auto) (38-83) % Lymph % (Auto) (25-47) % [place] % (Auto) (1-9) % Eos % (Auto) (0-6) % Baso % (Auto) (0-2) % Absolute Neuts (auto) (1.5-7.7) 10^3/ul Absolute Lymphs (auto) (1.0-4.8) 10^3/ul Absolute Monos (auto) (0-0.8) 10^3/ul Absolute Eos (auto) (0-0.6) 10^3/ul Absolute Basos (auto) (0-0.2) 10^3/ul Absolute Nucleated RBC 10^3/ul Nucleated RBC % D-Dimer, Quantitative (Less Than 230) ng/mL Sodium (133-145) mmol/L Potassium (3.5-5.0) mmol/L Chloride (101-111) mmol/L Carbon Dioxide (22-32) mmol/L Anion Gap (2-11) mmol/L BUN (6-24) mg/dL Creatinine (0.51-0.95) mg/dL Est GFR ( Amer) (>60) Est GFR (Non-Af Amer) (>60) BUN/Creatinine Ratio (8-20) Glucose (70-100) mg/dL Lactic Acid 0.8 (0.5-2.0) mmol/L Calcium (8.6-10.3) mg/dL Total Bilirubin (0.2-1.0) mg/dL AST (13-39) U/L ALT (7-52) U/L Alkaline Phosphatase (34-104) U/L Troponin I (<0.04) ng/mL B-Natriuretic Peptide 19 ( - 100) pg/mL Total Protein (6.4-8.9) g/dL Albumin (3.2-5.2) g/dL Globulin (2-4) g/dL Albumin/Globulin Ratio (1-3) Assess/Plan/Problems-Billing Assessment: Ms. Camejo is a 61 yo female with a PMH of COPD and bipolar disorder who was admitted on 01/24/17 with copd exacerbation. - Patient Problems (1) COPD exacerbation Comment: Continues to improve. Suspect anxiety playing significant component as well as persistent smoking. Continue prednisone, azithromycin, duonebs, spiriva, and dulera. Home O2 at night. (2) Adjustment disorder with mixed anxiety and depressed mood Comment: Continue home meds. (3) Nicotine dependence Comment: Smoking cessation strongly encouraged, > 5 minutes spend in counseling. (4) Hx of deep venous thrombosis Comment: Increased coumadin based on subtherapeutic INR. (5) Full code status (6) DVT prophylaxis Comment: Coumadin with SCDs. Status and Disposition: Discharge to home.
--- NOTE | 2017-01-27 00:26 | DS ---
DISCHARGE SUMMARY: DATE OF ADMISSION: 01/24/17 DATE OF DISCHARGE: 01/26/17 PRIMARY CARE PHYSICIAN: Dr. Schrader. ATTENDING PHYSICIAN: Dr. Larry Lehman *(dictation provided by Yaneli Augustin NP ). PRIMARY DIAGNOSIS: Chronic obstructive pulmonary disease exacerbation. SECONDARY DIAGNOSES: 1. Adjustment disorder with mixed depression and britt. 2. Chronic obstructive pulmonary disease 3. Hypertension. 4. Hyperlipidemia. 5. History of deep venous thrombosis, on Coumadin. 6. Irritable bowel syndrome. 7. Anxiety. 8. Depression. MEDICATIONS AT THE TIME OF DISCHARGE: 1. Prednisone via taper. 2. Azithromycin 250 mg p.o. daily x3 days. 3. Spiriva 18 mcg inhaled daily. 4. Albuterol via nebulizer p.r.n. 5. Albuterol meter dose inhaler p.r.n. 6. Warfarin 6 mg p.o. daily (newly increased dose, last INR 1.61). 7. Fluticasone/vilanterol 100/25 one puff inhaled daily. 8. Maalox Plus 30 mL p.o. daily p.r.n. 9. Metoprolol tartrate 25 mg p.o. b.i.d. 10. Mirtazapine 7.5 mg p.o. at bedtime. 11. [place] carbonate ER 300 mg p.o. b.i.d. 12. Gabapentin 100 mg p.o. b.i.d. 13. Montelukast 10 mg p.o. daily. 14. Isosorbide mononitrate ER 30 mg p.o. daily. 15. Olanzapine 20 mg p.o. at bedtime. 16. Esomeprazole 40 mg p.o. daily. 17. Atorvastatin 10 mg p.o. daily. HOSPITAL COURSE: Ms. Camejo is a 61-year-old female with longstanding history of COPD and continued cigarette use, who presented to the hospital on with concern for shortness of breath. Please see the dictated H and P from Dr. Star Hugo for complete details. In brief, the patient had no leukocytosis. Her labs were essentially normal. Her chest x-ray shows no infiltrate. Her EKG showed no evidence of ischemia. She was suspected to have COPD exacerbation. Ms. Camejo was admitted to the hospital. She was treated with steroids, albuterol nebulizers, azithromycin, and her home medications and with this, she has improved slowly. Today, she is up, ambulating in the hallway. She continues to have some shortness of breath with ambulation, but states she feels quite safe going home. She is considering staying with her son for couple of days while she continues to recover. During this hospitalization, I have strongly counseled Ms. Camejo to stop smoking. She states understanding of such and is hoping to continue to decrease smoking in the coming months. DISPOSITION: Home. DIET: Regular. ACTIVITY: As tolerated. FOLLOWUP PLANS: 1. Please follow up with Dr. Schrader in the next week for routine check after this hospitalization. 2. Please follow up on INR on Sunday for newly increased warfarin with INR 1.6. TIME SPENT: Approximately 60 minutes were spent on the discharge of this patient, more than half of the time was spent with the patient at the bedside reviewing the events leading up to this hospitalization, performing the physical examination, and reviewing my plan of care. YANELI AUGUSTIN NP CC: Dr. Schrader* [id number]/CPS #: [id number] ANNITA
== END 2017-01-26 12:05 | disposition home or self-care (01) | DRG 191 ==
LOC: ED 18:11 → MED 23:42 → OBSVTOIN 01-25 13:37
PROVIDERS: ADMIT Hospitalist; ATTEND Internal Medicine
DX: J44.1 Chronic obstructive pulmonary disease with (acute) exacerbation (principal); F30.9 Manic episode, unspecified; F20.9 Schizophrenia, unspecified; I10 Essential (primary) hypertension; F43.23 Adjustment disorder with mixed anxiety and depressed mood; E78.5 Hyperlipidemia, unspecified; K58.9 Irritable bowel syndrome, unspecified; F17.210 Nicotine dependence, cigarettes, uncomplicated; E66.9 Obesity, unspecified; Z79.01 Long term (current) use of anticoagulants; Z86.718 Personal history of other venous thrombosis and embolism; Z79.899 Other long term (current) drug therapy; Z88.0 Allergy status to penicillin; Z88.8 Allergy status to other drugs, medicaments and biological substances; Z82.49 Family history of ischemic heart disease and other diseases of the circulatory system; Z82.5 Family history of asthma and other chronic lower respiratory diseases; Z68.30 Body mass index [BMI] 30.0-30.9, adult
CPT/HCPCS: 36415; 71010; 80053; 83605; 83880; 84484; 85025; 85379; 85610; 87389; 93005; 94640; 94760; 99406; A9270-GY; G0475; J2405; J2930; J7512

== ENCOUNTER 2017-02-06 21:45 | Emergency (ER) | payer MEDICARE, MEDICAID ==
[2017-02-06] MEDS ORDERED: Albuterol/Ipratropium NEB.SOL* Albuterol 2.5 MG/Ipratropium 0.5 MG 3 ML INH ONE ×2 (21:52→23:33)
[2017-02-06] MEDS ORDERED: methylPREDNISolone 125 MG* 2 ML VIAL IV ONE (21:52)
[2017-02-06 22:10] LABS: Hematocrit 40 % (35-47); Hemoglobin 12.5 g/dl (12.0-16.0); Mean Corpuscular HGB Conc 32 g/dl (31-36); Mean Corpuscular Hemoglobin 26 pg (27-31); Mean Corpuscular Volume 84 fL (80-97); Mean Platelet Volume 8 um3 (7.4-10.4); Red Blood Count 4.74 10^6/ul (4.0-5.4); Red Cell Distribution Width 16 % (10.5-15); White Blood Count 11.6 10^3/ul (3.5-10.8)
[2017-02-06 22:25] LABS: Albumin 3.4 g/dL (3.2-5.2); BUN/Creatinine Ratio 14.8 (8-20); Calcium 8.9 mg/dL (8.6-10.3); EGFR African American 84.6 (>60); EGFR Non-African American 65.8 (>60); Globulin 2.2 g/dL (2-4); Potassium 4.4 mmol/L (3.5-5.0); Total Bilirubin 0.3 mg/dL (0.2-1.0); Total Protein 5.6 g/dL (6.4-8.9)
--- NOTE | 2017-02-06 22:29 | ED ---
madhavi Laboy Timothy, scribed for Cristopher Hernandes MD on 02/06/17 at 2202 . Shortness of Breath - HPI Summary HPI Summary: Daina Camejo is a 61 yo female presenting to [facility] with SOB and cough since 2199 today. She denies fever. Her MHx includes CAD, NM, peripheral vascular disease, HLD, HTN, DVT, COPD, emphysema, asthma, bronchitis, PNA, GERD, gall bladder disease, schizophrenia, bipolar disorder, depression, anxiety, suicide attempt, tobacco use. - History of Current Complaint Time Seen by Provider: 02/06/17 21:49 Hx Obtained From: Patient Onset/Duration: Sudden Onset, Lasting Minutes, Still Present Timing: Constant Current Severity: Moderate Dyspnea At: Rest Associated Signs & Symptoms: Cough (Nonproductive) - Allergy/Home Medications Allergies/Adverse Reactions: Allergies Allergy/AdvReac Type Severity Reaction Status Date / Time Bupropion [From Wellbutrin] Allergy Severe Agitation Verified 04/02/16 11:47 Cephalosporins Allergy Severe Agitation Verified 04/02/16 11:47 Penicillins [PCN] Allergy Intermediate Hives Verified 04/02/16 11:47 Chlorpromazine AdvReac Severe Diarrhea Verified 04/02/16 11:47 Erythromycin AdvReac Intermediate Diarrhea Verified 04/02/16 11:47 Tobramycin AdvReac Intermediate Diarrhea Verified 04/02/16 11:47 PMH/Surg Hx/FS Hx/Imm Hx Endocrine/Hematology History: Reports: Hx Anticoagulant Therapy, Other Endocrine /Hematological Disorders - L leg DVT Denies: Hx Diabetes, Hx Systemic Lupus Erythematosus, Hx Thyroid Disease Cardiovascular History: Reports: Hx Angina, Hx Coronary Artery Disease, Hx Deep Vein Thrombosis, Hx Hypercholesterolemia, Hx Hypertension, Hx Peripheral Vascular Disease, Other Cardiovascular Problems/Disorders - PERIPHERAL ARTERY DISEASE Denies: Hx Congestive Heart Failure, Hx Pacemaker/ICD Respiratory History: Reports: Hx Asthma, Hx Chronic Bronchitis, Hx Chronic Obstructive Pulmonary Disease (COPD), Hx Pneumonia, Hx Seasonal Allergies, Other Respiratory Problems/Disorders - Emphysema Denies: Hx Cystic Fibrosis, Hx Lung Cancer, Hx Pleural Effusion, Hx Pulmonary Edema, Hx Pulmonary Embolism, Hx Sleep Apnea GI History: Reports: Hx Gall Bladder Disease - removed, Hx Gastroesophageal Reflux Disease, Hx Irritable Bowel, Other GI Disorders - hernia repair X 2 Denies: Hx Cirrhosis, Hx Crohn's Disease, Hx Diverticulosis History: Denies: Hx Dialysis, Hx Renal Disease Musculoskeletal History: Denies: Hx Arthritis, Hx Rheumatoid Arthritis, Hx Osteoporosis Sensory History: Reports: Hx Contacts or Glasses Denies: Hx Glaucoma, Hx Deafness, Hx Hearing Aid, Hx Hearing Problem Opthamlomology History: Reports: Hx Contacts or Glasses Denies: Hx Glaucoma Neurological History: Denies: Hx Headaches, Hx Seizures, Hx Transient Ischemic Attacks (TIA) Psychiatric History: Reports: Hx Anxiety, Hx Depression, Hx Inpatient Treatment , Hx Community Mental Health Tx, Hx Schizophrenia, Hx Bipolar Disorder, Hx Suicide Attempt Denies: Hx Eating Disorder, Hx Panic Disorder, Hx of Violent Episodes Against Others - Cancer History Hx Chemotherapy: No - Surgical History Surgery Procedure, Year, and Place: bilat thumb repairs, hernia repairs X 2, cholecystectomy, appendectomy Hx Anesthesia Reactions: No - Immunization History Date of Tetanus Vaccine: unknown Infectious Disease History: Denies: Hx Clostridium Difficile, Hx Hepatitis, Hx Human Immunodeficiency Virus (HIV), Hx Shingles, Hx Tuberculosis, Traveled Outside the [place] in Last 30 Days - Family History Known Family History: Positive: Cardiac Disease, Hypertension, Other - schizophrenia, anxiety Negative: Diabetes Family History: Negative HTN/Cardiac/DM per EMR - Social History Alcohol Use: Rare Hx Substance Use: No Substance Use Type: Reports: None Hx Tobacco Use: Yes Smoking Status (MU): Heavy Every Day Tobacco Smoker Type: Cigarettes Amount Used/How Often: half a pack a day Have You Smoked in the Last Year: Yes Review of Systems Constitutional: Negative Negative: Fever Eyes: Negative ENT: Negative Cardiovascular: Negative Positive: Shortness Of Breath, Cough Gastrointestinal: Negative Genitourinary: Negative Musculoskeletal: Negative Skin: Negative Neurological: Negative Psychological: Normal All Other Systems Reviewed And Are Negative: Yes Physical Exam Triage Information Reviewed: Yes Vital Signs On Initial Exam: Initial Vitals Temp Pulse Resp BP Pulse Ox 97.9 F 80 25 100/56 100 02/06/17 22:00 02/06/17 22:00 02/06/17 22:00 02/06/17 22:00 02/06/17 22:00 Vital Signs Reviewed: Yes Appearance: Positive: Well-Appearing, Pain Distress - mild sob Skin: Positive: Warm Head/Face: Positive: Normal Head/Face Inspection Eyes: Positive: CRISTIAN ENT: Positive: Hearing grossly normal Neck: Positive: Supple Respiratory/Lung Sounds: Positive: Breath Sounds Present, Wheezes - diffuse bilat exp wheezes with prolonged expiration Cardiovascular: Positive: RRR Abdomen Description: Positive: Nontender, Soft Bowel Sounds: Positive: Present Musculoskeletal: Positive: Strength/ROM Intact Neurological: Positive: Alert, Oriented to Person Place, Time Psychiatric: Positive: Affect/Mood Appropriate Diagnostics - Vital Signs Vital Signs Temp Pulse Resp BP Pulse Ox 02/06/17 22:04 75 100/56 100 02/06/17 22:02 74 36 100 02/06/17 22:01 81/50 02/06/17 22:00 97.9 F 86 25 100/56 98 - Laboratory Lab Results: Lab Results 02/06/17 02/06/17 02/06/17 Range/Units 22:04 22:04 22:04 WBC 11.6 H (3.5-10.8) 10^3/ul RBC 4.74 (4.0-5.4) 10^6/ul Hgb 12.5 (12.0-16.0) g/dl Hct 40 (35-47) % MCV 84 (80-97) fL MCH 26 L (27-31) pg MCHC 32 (31-36) g/dl RDW 16 H (10.5-15) % Plt Count 144 L (150-450) 10^3/ul MPV 8 (7.4-10.4) um3 Neut % (Auto) 69.7 (38-83) % Lymph % (Auto) 22.7 L (25-47) % [place] % (Auto) 4.1 (1-9) % Eos % (Auto) 2.8 (0-6) % Baso % (Auto) 0.7 (0-2) % Absolute Neuts (auto) 8.1 H (1.5-7.7) 10^3/ul Absolute Lymphs (auto) 2.6 (1.0-4.8) 10^3/ul Absolute Monos (auto) 0.5 (0-0.8) 10^3/ul Absolute Eos (auto) 0.3 (0-0.6) 10^3/ul Absolute Basos (auto) 0.1 (0-0.2) 10^3/ul Absolute Nucleated RBC 0 10^3/ul Nucleated RBC % 0 Sodium 140 (133-145) mmol/L Potassium 4.4 (3.5-5.0) mmol/L Chloride 107 (101-111) mmol/L Carbon Dioxide 31 (22-32) mmol/L Anion Gap 2 (2-11) mmol/L BUN 13 (6-24) mg/dL Creatinine 0.88 (0.51-0.95) mg/dL Est GFR ( Amer) 84.6 (>60) Est GFR (Non-Af Amer) 65.8 (>60) BUN/Creatinine Ratio 14.8 (8-20) Glucose 98 (70-100) mg/dL Lactic Acid 0.7 (0.5-2.0) mmol/L Calcium 8.9 (8.6-10.3) mg/dL Total Bilirubin 0.30 (0.2-1.0) mg/dL AST 7 L (13-39) U/L ALT 11 (7-52) U/L Alkaline Phosphatase 68 (34-104) U/L Troponin I 0.00 (<0.04) ng/mL Total Protein 5.6 L (6.4-8.9) g/dL Albumin 3.4 (3.2-5.2) g/dL Globulin 2.2 (2-4) g/dL Albumin/Globulin Ratio 1.5 (1-3) Result Diagrams: 02/06/17 22:04 02/06/17 22:04 Lab Statement: Any lab studies that have been ordered have been reviewed, and results considered in the medical decision making process. - Radiology CXR Xray Interpretation: No Acute Changes - IMPRESSION: NO ACTIVE DISEASE. Radiology Interpretation Completed By: Radiologist - EKG 2258 Cardiac Rate: NL - 75 BPM EKG Interpretation: NSR @ 75 BPM, normal EKG. Re-Evaluation - Re-Evaluation First Eval Re-Evaluation Time: 23:35 Change: Improved Comment: Pt condition has improved, she will receive another duoneb treatment. Course/Dx - Course Assessment/Plan: Daina Camejo is a 61 yo female presenting to [facility] with exacerbation of COPD with SOB and cough since 2200 tonight. In the ED course she received Duoneb and Solu-Medrol to alleviate her Sx. Her CXR suggests no active disease. Her EKG was WNL. After clinical examination and review of her lab and imaging studies, she will be discharged home with COPD exacerbation with appropriate instructions. - Diagnoses Differential Diagnosis/HQI/PQRI: Positive: COPD Exacerbation Provider Diagnoses: COPD exacerbation Discharge - Discharge Plan Condition: Stable Disposition: HOME Prescriptions: predniSONE TAB* [Deltasone TAB*] 40 mg PO DAILY #8 tab Patient Education Materials: COPD (Chronic Obstructive Pulmonary Disease) (ED) , Nutrition Guidelines for People with COPD (ED) Referrals: Tom Schrader MD [Primary Care Provider] - 2 Days Additional Instructions: Please follow up with our primary care physician regarding your visit to the emergency department today. Return to the emergency department with any new or recurring symptoms. The documentation as recorded by the madhavi kiran Timothy accurately reflects the service I personally performed and the decisions made by me, Cristopher Hernandes MD.
--- NOTE | 2017-02-06 22:42 | RAD ---
INDICATION: Short of breath COMPARISON: January 24, 2017 TECHNIQUE: PA and lateral dual-energy views were obtained. FINDINGS: Bones/Soft Tissues: There are no acute bony findings. Cardiomediastinal: The cardiomediastinal silhouette is normal. Lungs: There are no infiltrates. Pleura: There are no pleural effusions. Other: None IMPRESSION: NO ACTIVE DISEASE.
[2017-02-07 01:01] VITALS: BP 139/84
== END 2017-02-07 01:01 | disposition home or self-care (01) ==
LOC: ED 21:45
DX: J44.1 Chronic obstructive pulmonary disease with (acute) exacerbation (principal); F17.210 Nicotine dependence, cigarettes, uncomplicated; I25.10 Atherosclerotic heart disease of native coronary artery without angina pectoris; I25.2 Old myocardial infarction; E78.00 Pure hypercholesterolemia, unspecified; E78.5 Hyperlipidemia, unspecified; I73.9 Peripheral vascular disease, unspecified; F20.9 Schizophrenia, unspecified; F31.9 Bipolar disorder, unspecified; Z88.0 Allergy status to penicillin
CPT/HCPCS: 36415; 71020; 80053; 83605; 84484; 85025; 93005; 94640; 99282; A9270-GY; J2930

== ENCOUNTER 2017-02-17 16:25 | Inpatient (IN) | payer MEDICARE, MEDICAID ==
[2017-02-17] MEDS ORDERED: methylPREDNISolone 125 MG* 2 ML VIAL IV ONE (16:38)
[2017-02-17] MEDS ORDERED: Albuterol/Ipratropium NEB.SOL* Albuterol 2.5 MG/Ipratropium 0.5 MG 3 ML INH ONE (16:38)
--- NOTE | 2017-02-17 17:35 | RAD ---
HISTORY: Chest pain COMPARISONS: February 06, 2017 VIEWS: 2: Frontal dual-energy and lateral views of the chest. FINDINGS: CARDIOMEDIASTINAL SILHOUETTE: The cardiomediastinal silhouette is normal. DELIA: The delia are normal. PLEURA: The costophrenic angles are sharp. No pleural abnormalities are noted. LUNG PARENCHYMA: There is hyperinflation with flattening of the diaphragm and expansion of the AP diameter of the chest. ABDOMEN: The upper abdomen is clear. There is no subphrenic gas. BONES AND SOFT TISSUES: No bone or soft tissue abnormalities are noted. OTHER: None. IMPRESSION: NO ACTIVE CARDIOPULMONARY DISEASE.
[2017-02-17 17:58] LABS: Hematocrit 36 % (35-47); Hemoglobin 11.3 g/dl (12.0-16.0); Mean Corpuscular HGB Conc 32 g/dl (31-36); Mean Corpuscular Hemoglobin 27 pg (27-31); Mean Corpuscular Volume 85 fL (80-97); Mean Platelet Volume 8 um3 (7.4-10.4); Red Blood Count 4.24 10^6/ul (4.0-5.4); Red Cell Distribution Width 17 % (10.5-15)
[2017-02-17 18:27] LABS: Albumin 3.5 g/dL (3.2-5.2); BUN/Creatinine Ratio 9.3 (8-20); C Reactive Protein 21.66 mg/L (< 5.00); Calcium 9.2 mg/dL (8.6-10.3); EGFR African American 86.9 (>60); EGFR Non-African American 67.5 (>60); Globulin 2.6 g/dL (2-4); Potassium 3.8 mmol/L (3.5-5.0); Total Bilirubin 0.4 mg/dL (0.2-1.0); Total Protein 6.1 g/dL (6.4-8.9)
[2017-02-17] MEDS ORDERED: Nitroglycerin TAB 0.4 MG* 0.4 MG TAB SL ONE (18:29)
[2017-02-17] MEDS ORDERED: Al Hydrox/Mg Hydrox/Simet LIQ* 30 ML UDC PO PRN (18:50)
[2017-02-17] MEDS ORDERED: Albuterol HFA INHALER* 8 gm MDI INH PRN (18:50)
[2017-02-17] MEDS ORDERED: Albuterol 2.5 MG/3 ML NEB.SOL* (0.083%) INH SCH (19:00)
[2017-02-17] MEDS ORDERED: Aspirin EC TAB* 325 MG PO ONE (19:06)
[2017-02-17] MEDS ORDERED: Mouth Piece, Nicotine* 1 EACH CARTRIDGE ONE ×2 (20:48→20:49)
[2017-02-17] MEDS: Nicotine Inhaler* 10 MG AMP INH PRN (20:51)
[2017-02-17] MEDS: Gabapentin CAP(*) 100 MG PO SCH (20:54)
[2017-02-17] MEDS: Azithromycin TAB* 250 MG PO SCH (20:55)
[2017-02-17] MEDS: Mirtazapine TAB* 15 MG PO SCH (20:56)
[2017-02-17] MEDS: Lithium Carbonate TAB* 300 MG PO SCH (20:56)
[2017-02-17] MEDS: Metoprolol Tartrate TAB* 25 MG PO SCH (20:57)
[2017-02-17] MEDS: OLANzapine TAB* 10 MG PO SCH (23:03)
--- NOTE | 2017-02-17 23:17 | HP ---
CC: Dr. Tom Schrader * HISTORY AND PHYSICAL: DATE OF ADMISSION: 02/17/17 PRIMARY CARE PROVIDER: Dr. Tom Schrader. ATTENDING PHYSICIAN: Dr. Star Hugo * (dictated by Ashley Peralta NP) CHIEF COMPLAINT: Chest discomfort and shortness of breath. HISTORY OF PRESENT ILLNESS: Ms. Camejo is a 61-year-old female with past medical history significant for COPD, peripheral vascular disease, hypertension , hyperlipidemia, left lower extremity DVT, bipolar, schizophrenia, who presents to the emergency room with complaints of chest discomfort starting at 4 a.m. The patient reports that the squeezing discomfort is worse when she is smoking or walking long distance. The patient feels that this discomfort is different than any discomfort she has had in the past. The patient also states that her breathing has been off for several days. She reports using oxygen 2 L via nasal cannula at home at bedtime. She denies any fever, chills, nausea, vomiting, diaphoresis, urinary symptoms. The patient states that she has a chronic cough. The patient has found nothing that made her pain worse, due to concern, she decided to present to the emergency room for further evaluation of her symptoms. While in the emergency room, the patient had received DuoNeb and Solu-Medrol. She felt that her breathing improved, but she continued to have chest discomfort. The patient had a chest x-ray showing no active cardiopulmonary disease. She had an EKG showing a sinus rhythm with a rate of 98. This EKG is similar to previous EKG from 02/06/17. The patient states that her breathing had improved after the DuoNeb and Solu-Medrol. Hospitalists were asked to evaluate the patient for admission. PAST MEDICAL HISTORY: 1. Chronic obstructive pulmonary disease. 2. Peripheral vascular disease. 3. Hypertension. 4. Hyperlipidemia. 5. Anxiety and depression. 6. History of left lower extremity deep vein thrombosis. 7. Irritable bowel syndrome. 8. Bipolar. 9. Schizophrenia. PAST SURGICAL HISTORY: 1. Status post appendectomy. 2. Status post cholecystectomy. 3. Status post hernia repair. 4. Status post bilateral lower extremity angioplasty. MEDICATIONS: Home medications include: 1. Warfarin 3 mg oral daily. 2. Spiriva 1 capsule inhalation daily. 3. Zyprexa 30 mg oral daily at bedtime. 4. Singulair 10 mg oral daily. 5. Mirtazapine 7.5 mg oral daily at bedtime. 6. Metoprolol tartrate 25 mg oral twice daily. 7. Herreid carbonate 300 mg oral twice daily. 8. Isosorbide mononitrate ER 30 mg oral daily. 9. Gabapentin 100 mg oral twice daily. 10. Breo Ellipta MDI 100/25 one puff inhalation daily. 11. Nexium 40 mg oral daily. 12. Atorvastatin 10 mg oral daily. 13. Albuterol sulfate 108 mcg inhalation every 4 hours as needed for shortness of breath or wheeze. 14. Albuterol 2.5 mg/3 mL nebulizer 2.5 mg inhalation every 2 hours as needed for shortness of breath or wheeze. 15. Maalox Plus 30 mL oral daily as needed for indigestion. ALLERGIES: BUPROPION, CEPHALOSPORIN, PENICILLIN, CHLORPROMAZINE, ERYTHROMYCIN, and TOBRAMYCIN. FAMILY HISTORY: The patient reports that her father passed in his 70s from a myocardial infarction, the patient's brother also had a history heart disease. The patient denies any family history of diabetes mellitus or cancer. SOCIAL HISTORY: The patient is a current smoker, smoking approximately half a pack a day. She has approximately 40 years' smoking history. The patient rarely drinks alcohol. She denies recreational drug use. The patient is disabled. Her son, Maikel Camejo, will be her surrogate decision maker in the event that she is unable to make decisions for herself. REVIEW OF SYSTEMS: I performed a 14-point review of systems, all the pertinent positives and negatives are mentioned in the history of present illness. The remaining review of systems is negative. PHYSICAL EXAMINATION GENERAL APPEARANCE: The patient is alert, pleasant, and appears to be in no acute distress. VITAL SIGNS: Temperature 98.1, heart rate 91, respiratory rate 16, O2 sat 97% on room air, and blood pressure 133/49. HEENT: Normocephalic, atraumatic. Pupils are equal and reactive to light. Extraocular movements are intact. RESPIRATORY: There is no accessory muscle use and the lungs have wheezing bilateral. CARDIOVASCULAR: Regular rate and rhythm. S1 and S2 present. There are no murmurs, rubs, or gallops heard. ABDOMEN: Soft, nontender, and nondistended. There are bowel sounds present x4. EXTREMITIES: There is no lower extremity edema. DP and PT pulses are 2+ and symmetric. MUSCULOSKELETAL: There is no clubbing or cyanosis noted. The patient exhibits good strength in all extremities. NEUROLOGICAL: The patient is alert and oriented x4. Cranial nerves II through XII are grossly intact. PSYCHOLOGICAL: The patient is calm and cooperative. SKIN: There are no rashes or abnormalities seen. DIAGNOSTIC STUDIES/LAB DATA: Sodium 130, potassium 3.8, chloride 106, CO2 26, BUN 8, creatinine 0.86, glucose 95. Troponin 0.00. White blood cell count 7.0 , hemoglobin 11.3, hematocrit 36, platelet count 151. EKG shows a normal sinus rhythm with rate of 98. There are no acute signs of ischemia. This EKG is similar to previous EKG from 02/06/17. Chest x-ray from today. Radiologist's impression: No cardiopulmonary disease noted. IMPRESSION: Ms. Camejo is a 61-year-old female with past medical history significant for chronic obstructive pulmonary disease, peripheral vascular disease, hypertension, hyperlipidemia, who presents to the emergency room with complaints of chest discomfort and shortness of breath. She will be admitted on observation for chest pain rule out and chronic obstructive pulmonary disease exacerbation.. ASSESSMENT AND PLAN: 1. Shortness of breath: I suspect this represents a chronic obstructive pulmonary disease exacerbation. The patient received DuoNeb and IV Solu-Medrol in the emergency room and reports that her breathing feels better. We will continue the patient on oral prednisone and continue albuterol nebulizers q.4 hours while awake. The patient will have albuterol inhaler as needed for shortness of breath. We will place the patient on azithromycin daily for 5 days. Currently, the patient is afebrile and has no leukocytosis. 2. Chest pain: The patient's chest pain is reproducible at her sternum. I suspect the pain is related to her coughing and her chronic obstructive pulmonary disease exacerbation and not acute coronary syndrome. The patient has risk factors of smoking, hypertension, hyperlipidemia, and family history. Based off the patient's risk factors, we will monitor her on telemetry. We will trend her troponins. If the patient rules out for acute coronary syndrome , we will consider setting her up for an outpatient stress test if she is discharged tomorrow. The patient will receive a full dose of aspirin today at the end. 3. Hypertension: The patient will be continued on her home metoprolol. 4. Hyperlipidemia: The patient will be continued on her home atorvastatin. We will check fasting lipids and adjust accordingly. 5. History of left lower extremity deep vein thrombosis: The patient is currently on warfarin therapy. The patient's INR is supratherapeutic today, we will hold her warfarin and recheck her INR in the morning. 6. Bipolar, schizophrenia, anxiety, and depression: We will continue the patient on her home medications of Zyprexa, lithium, and mirtazapine. 7. History of gastroesophageal reflux disease: The patient will be continued on p.r.n. Maalox. 8. Fluids, electrolytes, and nutrition: The patient will be on a heart- healthy diet. 9. DVT prophylaxis: The patient is a high risk. Her INR is currently supratherapeutic, we will hold her warfarin and resume once that drifts down. 10. Code status: Full code. 11. Disposition: Observation. TIME SPENT: Time for this admission was 60 minutes and approximately 35 minutes of that was spent with the patient discussing medications, past medical history, the events leading up to her arrival today and performing a physical examination. The case has been reviewed with the attending, Dr. Hugo, who agrees with the plan of care. ASHLEY LAU, DAHIANA [id number]/[facility] #: [id number] ANNITA
[2017-02-18] MEDS: Albuterol 2.5 MG/3 ML NEB.SOL* (0.083%) INH SCH ×2 (01:57→08:59)
[2017-02-18 05:03] LABS: Urine Bilirubin Negative (Negative); Urine Glucose 1+(50 mg/dL) (Negative); Urine Nitrite Negative (Negative)
[2017-02-18 07:39] LABS: Hematocrit 36 % (35-47); Hemoglobin 11.5 g/dl (12.0-16.0); Mean Corpuscular HGB Conc 32 g/dl (31-36); Mean Corpuscular Hemoglobin 27 pg (27-31); Mean Corpuscular Volume 85 fL (80-97); Mean Platelet Volume 9 um3 (7.4-10.4); Red Blood Count 4.22 10^6/ul (4.0-5.4); Red Cell Distribution Width 16 % (10.5-15); White Blood Count 4.4 10^3/ul (3.5-10.8)
[2017-02-18 08:00] LABS: BUN/Creatinine Ratio 13.8 (8-20); Blood Urea Nitrogen 11 mg/dL (6-24); CO2 Carbon Dioxide 20 mmol/L (22-32); Calcium 9.1 mg/dL (8.6-10.3); Chloride 106 mmol/L (101-111); Cholesterol 148 mg/dL; EGFR African American 94.4 (>60); EGFR Non-African American 73.4 (>60); Glucose 137 mg/dL (70-100); HDL Cholesterol 48.9 mg/dL; LDL Cholesterol 85 mg/dL; Sodium 134 mmol/L (133-145); Triglycerides 71 mg/dL
[2017-02-18] MEDS ORDERED: Albuterol HFA INHALER* 8 gm MDI INH PRN (08:22)
[2017-02-18] MEDS ORDERED: Lithium Carbonate TAB* 300 MG PO SCH (09:00)
[2017-02-18] MEDS ORDERED: Fluticasone/Vilanterol MDI(NF) 100/25 MDI INH SCH (09:00)
[2017-02-18] MEDS: Isosorbide Mononitrate ER TAB* 30 MG PO SCH (09:53)
[2017-02-18] MEDS: Gabapentin CAP(*) 100 MG PO SCH ×2 (09:53→19:30)
[2017-02-18] MEDS: Metoprolol Tartrate TAB* 25 MG PO SCH ×2 (09:53→19:29)
[2017-02-18] MEDS: Montelukast Sodium TAB* 10 MG PO SCH (09:55)
[2017-02-18] MEDS: predniSONE TAB* 20 MG PO SCH (09:55)
[2017-02-18] MEDS: Lithium Carbonate TAB* 300 MG PO SCH ×2 (09:55→19:31)
[2017-02-18] MEDS: Azithromycin TAB* 250 MG PO SCH (09:55)
[2017-02-18] MEDS: Omeprazole CAP* 20 MG PO SCH (09:55)
[2017-02-18] MEDS: Nicotine Inhaler* 10 MG AMP INH PRN ×3 (10:01→16:35)
[2017-02-18] MEDS: Mometasone/Formoter 200/5 MDI INH SCH ×2 (10:34→20:50)
[2017-02-18] MEDS ORDERED: Spiriva Inhaler DEVICE* 1 EACH DEVICE ONE (11:00)
--- NOTE | 2017-02-18 11:31 | PN ---
Subjective Date of Service: 02/18/17 Interval History: Patient seen and examined at bedside. Pt states that her chest discomfort and shortness of breath is improving, but not yet to her baseline. Pt states that the chest discomfort is a 5/10. The chest discomfort is reproducible with palpation. Denies fever, chills, N/V/D. Pt reports a productive cough with white mucous. Pt doesn't feel ready for discharge to home today, she was encouraged to ambulate in the halls. Tele: Sinus rhythm, rate 80-90's. Family History: Unchanged from Admission Social History: Unchanged from Admission Past Medical History: Unchanged from Admission Objective Active Medications: Al Hydrox/Mg Hydrox/Simethicone (Maalox Plus*) 30 ml PO DAILY PRN Reason: INDIGESTION Albuterol (Ventolin Hfa Inhaler*) 2 puff INH Q4H PRN Reason: SOB/WHEEZING Atorvastatin Calcium (Lipitor*) 10 mg PO 1700 ELI Azithromycin (Zithromax Tab*) 500 mg PO DAILY [facility] Stop: 02/22/17 19:59 Gabapentin (Neurontin Cap(*)) 100 mg PO BID ELI Isosorbide Mononitrate (Imdur Er Tab*) 30 mg PO DAILY ELI [place] Carbonate ([place] Carbonate Tab*) 300 mg PO BID ELI Metoprolol Tartrate (Lopressor Tab*) 25 mg PO BID ELI Mirtazapine (Remeron Tab*) 7.5 mg PO BEDTIME ELI Mometasone Furoate/Formoterol Fumar (Dulera 200/5 Mdi*) 2 puff INH BID ELI Montelukast Sodium (Singulair Tab*) 10 mg PO DAILY [facility] Nicotine (Nicotine Inhaler*) 10 mg INH Q2H PRN Reason: CRAVING Olanzapine (Zyprexa Tab*) 30 mg PO BEDTIME ELI Omeprazole (Prilosec Cap*) 20 mg PO DAILY@0730 [facility] Reason: Protocol Prednisone (Deltasone Tab*) 40 mg PO DAILY ELI Tiotropium [place] (Spiriva Cap.Inh*) 1 cap INH DAILY [facility] Vital Signs 02/17/17 02/17/17 02/17/17 20:29 20:43 20:54 Temperature 97.3 F Pulse Rate 98 108 Respiratory 32 20 30 Rate Blood Pressure 158/60 (mmHg) O2 Sat by Pulse 99 93 Oximetry 0602/17/17 02/18/17 22:54 23:15 01:58 Temperature Pulse Rate 86 Respiratory 28 16 Rate Blood Pressure 102/51 (mmHg) O2 Sat by Pulse 90 93 Oximetry 02/18/17 02/18/17 02/18/17 03:40 07:29 08:24 Temperature 97.8 F 97.9 F Pulse Rate 77 88 Respiratory 16 24 Rate Blood Pressure 113/54 147/42 (mmHg) O2 Sat by Pulse 97 94 91 Oximetry 02/18/17 02/18/17 09:53 10:38 Temperature Pulse Rate 89 Respiratory 36 26 Rate Blood Pressure (mmHg) O2 Sat by Pulse 92 Oximetry Oxygen Devices in Use Now: None Appearance: NAD, laying in bed Eyes: No Scleral Icterus Ears/Nose/Mouth/Throat: Mucous Membranes Moist Respiratory: Symmetrical Chest Expansion and Respiratory Effort, - - Lung sounds with rhonchi bilateral and diminished Cardiovascular: NL Sounds; No Murmurs; No JVD, RRR Abdominal: NL Sounds; No Tenderness; No Distention Extremities: No Edema Skin: No Rash or Ulcers Neurological: Alert and Oriented x 3, NL Muscle Strength and Tone Lines/Tubes/Other Access: Clean, Dry and Intact Peripheral IV - site benign Nutrition: Taking PO's Result Diagrams: 02/18/17 07:24 02/18/17 10:03 Additional Lab and Data: Assess/Plan/Problems-Billing Assessment: - Patient Problems (1) COPD exacerbation Code(s): J44.1 - CHRONIC OBSTRUCTIVE PULMONARY DISEASE W (ACUTE) EXACERBATION SNOMED Code(s): 446768798 Comment: - Continues to improve. - Suspect anxiety may be playing a component as well as persistent smoking. - Continue prednisone, azithromycin, duonebs, spiriva, and dulera. Home O2 at night. (2) Chest pain Code(s): R07.9 - CHEST PAIN, UNSPECIFIED SNOMED Code(s): 16054414 Comment: - Reproducable CP thought to be secondary to cough and musculoskeletal pain. - Q waves noted on EKG but no noted EKG changes. - 3 flat troponins. - Nuc med stress test 01/2016 placed her low risk. - Has hx of angina with no tank hoop bender - Plan for her to see Dr. Hayes as an outpt for f/u, but been a no show to appointments. - Strongly encouraged to quit smoking. (3) Hypertension Code(s): I10 - ESSENTIAL (PRIMARY) HYPERTENSION SNOMED Code(s): 23919214 Comment: - BP moderately elevated today. - Continue Lisinopril and Imdur. (4) HLD (hyperlipidemia) Code(s): E78.5 - HYPERLIPIDEMIA, UNSPECIFIED SNOMED Code(s): 48953226 Comment: - Continue statin (5) Hx of deep venous thrombosis Code(s): Z86.718 - PERSONAL HISTORY OF OTHER VENOUS THROMBOSIS AND EMBOLISM SNOMED Code(s): 251249597 Comment: - Coumadin held last evening due to supratherapeutic INR - INR 2.86 today (6) GERD (gastroesophageal reflux disease) Code(s): K21.9 - GASTRO-ESOPHAGEAL REFLUX DISEASE WITHOUT ESOPHAGITIS SNOMED Code(s): 217642074 Comment: - Continue omeprazole. (7) Schizoaffective disorder, bipolar type Code(s): F25.0 - SCHIZOAFFECTIVE DISORDER, BIPOLAR TYPE SNOMED Code(s): 91652539 Comment: - Stable. - Continue home medication regimen, zyprexa, lithium and remeron. (8) Nicotine dependence Code(s): F17.200 - NICOTINE DEPENDENCE, UNSPECIFIED, UNCOMPLICATED SNOMED Code (s): 78457368 Comment: - Smoking cessation strongly encouraged, > 5 minutes spend in counseling. (9) DVT prophylaxis Code(s): CEG5733 - SNOMED Code(s): 872686911 Comment: - Continue Coumadin (10) Full code status Code(s): Z78.9 - OTHER SPECIFIED HEALTH STATUS SNOMED Code(s): 172005324 Status and Disposition: OBV to Inpatient. Discharge to home when medically stable, possibly in the morning.
[2017-02-18] MEDS: Tiotropium CAP.INH* CAP.INH/18 MCG INH SCH (13:10)
[2017-02-18] MEDS ORDERED: Acetaminophen TAB* 325 MG PO PRN (13:22)
[2017-02-18] MEDS ORDERED: Warfarin TAB(*) 3 MG PO SCH (17:00)
[2017-02-18] MEDS ORDERED: Atorvastatin* 10 MG TAB PO SCH (17:00)
--- NOTE | 2017-02-18 18:29 | ED ---
Geraldo Laboy Aidan, scribed for Yovanny Roque MD on 02/17/17 at 1658 . HPI Chest Pain - HPI Summary HPI Summary: 61 y/o female presents to the ED with a complaint of acute, constant, severe (9/ 10) CP described as a squeezing sensation that began today. The pain radiates up to her neck. Previously, she has had a similar CP when diagnosed with angina ; however, her CP in the past was not as severe. Associated symptoms include SOB , lower extremity tremors, and a productive cough. Hx of COPD. At home, she uses 2l O2 at night. - History of Current Complaint Chief Complaint: EDChestPainROMI Hx Obtained From: Patient Onset/Duration: Started Hours Ago, Still Present Timing: Constant Initial Severity: Moderate Current Severity: Severe Pain Intensity: 9 - 8/10 reported on nurse's note Pain Scale Used: 0-10 Numeric Chest Pain Location: Diffuse Chest Pain Radiates: Yes Chest Pain Radiates To:: Neck Character: Pressure/Squeezing - squeezing Aggravating Factor(s): Other: - unknown Alleviating Factor(s): Other: - unknown Associated Signs and Symptoms: Positive: Shortness of Breath, Productive Cough, Other: - lower extremity tremors - Risk Factors Pulmonary Embolism Risk Factors: DVT, Smoking TAD Risk Factors: Smoking, Hypertension AMI/ACS Risk Factors: Hypertension, Smoking - Additional Pertinent History Primary Care Physician: MANDY - Allergy/Home Medications Allergies/Adverse Reactions: Allergies Allergy/AdvReac Type Severity Reaction Status Date / Time Bupropion [From Wellbutrin] Allergy Severe Agitation Verified 02/17/17 16:37 Cephalosporins Allergy Severe Agitation Verified 02/17/17 16:37 Penicillins [PCN] Allergy Intermediate Hives Verified 02/17/17 16:37 Chlorpromazine AdvReac Severe Diarrhea Verified 02/17/17 16:37 Erythromycin AdvReac Intermediate Diarrhea Verified 02/17/17 16:37 Tobramycin AdvReac Intermediate Diarrhea Verified 02/17/17 16:37 PMH/Surg Hx/FS Hx/Imm Hx Endocrine/Hematology History: Reports: Hx Anticoagulant Therapy, Other Endocrine /Hematological Disorders - L leg DVT Denies: Hx Diabetes, Hx Systemic Lupus Erythematosus, Hx Thyroid Disease Cardiovascular History: Reports: Hx Angina, Hx Coronary Artery Disease, Hx Deep Vein Thrombosis, Hx Hypercholesterolemia, Hx Hypertension, Hx Peripheral Vascular Disease, Other Cardiovascular Problems/Disorders - PERIPHERAL ARTERY DISEASE; CAD; DVT Denies: Hx Congestive Heart Failure, Hx Pacemaker/ICD Respiratory History: Reports: Hx Asthma, Hx Chronic Bronchitis, Hx Chronic Obstructive Pulmonary Disease (COPD), Hx Pneumonia, Hx Seasonal Allergies, Other Respiratory Problems/Disorders - PNA Denies: Hx Cystic Fibrosis, Hx Lung Cancer, Hx Pleural Effusion, Hx Pulmonary Edema, Hx Pulmonary Embolism, Hx Sleep Apnea GI History: Reports: Hx Gall Bladder Disease - removed, Hx Gastroesophageal Reflux Disease, Hx Irritable Bowel, Other GI Disorders - hernia repair X 2 Denies: Hx Cirrhosis, Hx Crohn's Disease, Hx Diverticulosis History: Denies: Hx Dialysis, Hx Renal Disease Musculoskeletal History: Denies: Hx Arthritis, Hx Rheumatoid Arthritis, Hx Osteoporosis Sensory History: Reports: Hx Contacts or Glasses Denies: Hx Glaucoma, Hx Deafness, Hx Hearing Aid, Hx Hearing Problem Opthamlomology History: Reports: Hx Contacts or Glasses Denies: Hx Glaucoma Neurological History: Denies: Hx Headaches, Hx Seizures, Hx Transient Ischemic Attacks (TIA) Psychiatric History: Reports: Hx Anxiety, Hx Depression, Hx Inpatient Treatment , Hx Community Mental Health Tx, Hx Schizophrenia, Hx Bipolar Disorder, Hx Suicide Attempt Denies: Hx Eating Disorder, Hx Panic Disorder, Hx of Violent Episodes Against Others - Cancer History Hx Chemotherapy: No - Surgical History Surgery Procedure, Year, and Place: bilat thumb repairs, hernia repairs X 2, cholecystectomy, appendectomy Hx Anesthesia Reactions: No - Immunization History Date of Tetanus Vaccine: unknown Infectious Disease History: No Infectious Disease History: Denies: Hx Clostridium Difficile, Hx Hepatitis, Hx Human Immunodeficiency Virus (HIV), Hx Shingles, Hx Tuberculosis, Traveled Outside the [place] in Last 30 Days - Family History Known Family History: Positive: Other - schizophrenia, anxiety Negative: Cardiac Disease, Hypertension, Diabetes Family History: Negative HTN/Cardiac/DM per EMR - Social History Occupation: Disabled Lives: Alone Alcohol Use: Rare Hx Substance Use: No Substance Use Type: Reports: None Hx Tobacco Use: Yes Smoking Status (MU): Light Every Day Tobacco Smoker Type: Cigarettes Amount Used/How Often: half a pack a day Have You Smoked in the Last Year: Yes Review of Systems Constitutional: Negative Eyes: Negative ENT: Negative Positive: Chest Pain. Negative: Palpitations Positive: Shortness Of Breath, Cough Gastrointestinal: Negative Genitourinary: Negative Musculoskeletal: Negative Skin: Negative Neurological: Other - lower extremity tremors Negative: Headache, Weakness, Paresthesia, Numbness, Syncope, Slurred Speech Psychological: Normal All Other Systems Reviewed And Are Negative: Yes Physical Exam - Summary Physical Exam Summary: VITAL SIGNS: Reviewed. GENERAL: Patient is a well-developed and nourished (FEMALE) who is lying comfortable in the stretcher. Patient is in acute, [id number] respiratory distress with wheezes in the apices of the lungs. She is elderly. HEAD AND FACE: No signs of trauma. No ecchymosis, hematomas or skull depressions. No sinus tenderness. EYES: PERRLA, EOMI x 2, No injected conjunctiva, no nystagmus. EARS: Hearing grossly intact. Ear canals and tympanic membranes are within normal limits. MOUTH: Oropharynx within normal limits. NECK: Supple, trachea is midline, no adenopathy, no JVD, no carotid bruit, no c- spine tenderness, neck with full ROM. CHEST: Symmetric, no tenderness at palpation LUNGS: Clear to auscultation bilaterally. No wheezing or crackles. CVS: Regular rate and rhythm, S1 and S2 present, no murmurs or gallops appreciated. ABDOMEN: Soft, non-tender. No signs of distention. No rebound no guarding, and no masses palpated. Bowel sounds are normal. EXTREMITIES: FROM in all major joints, no edema, no cyanosis or clubbing. NEURO: Alert and oriented x 3. No acute neurological deficits. Speech is normal and follows commands. SKIN: Dry and warm Triage Information Reviewed: Yes Vital Signs On Initial Exam: Initial Vitals BP 90/71 02/17/17 16:34 Vital Signs Reviewed: Yes Diagnostics - Vital Signs Vital Signs Temp Pulse Resp BP Pulse Ox 02/17/17 16:35 98.1 F 102 21 90/71 96 02/17/17 16:34 - Laboratory Lab Results: Lab Results 02/17/17 02/17/17 02/17/17 Range/Units 17:37 17:37 17:37 WBC 7.0 (3.5-10.8) 10^3/ul RBC 4.24 (4.0-5.4) 10^6/ul Hgb 11.3 L (12.0-16.0) g/dl Hct 36 (35-47) % MCV 85 (80-97) fL MCH 27 (27-31) pg MCHC 32 (31-36) g/dl RDW 17 H (10.5-15) % Plt Count 151 (150-450) 10^3/ul MPV 8 (7.4-10.4) um3 Neut % (Auto) 70.8 (38-83) % Lymph % (Auto) 20.6 L (25-47) % [place] % (Auto) 5.9 (1-9) % Eos % (Auto) 2.1 (0-6) % Baso % (Auto) 0.6 (0-2) % Absolute Neuts (auto) 5.0 (1.5-7.7) 10^3/ul Absolute Lymphs (auto) 1.4 (1.0-4.8) 10^3/ul Absolute Monos (auto) 0.4 (0-0.8) 10^3/ul Absolute Eos (auto) 0.1 (0-0.6) 10^3/ul Absolute Basos (auto) 0 (0-0.2) 10^3/ul Absolute Nucleated RBC 0 10^3/ul Nucleated RBC % 0 Sodium 138 (133-145) mmol/L Potassium 3.8 (3.5-5.0) mmol/L Chloride 106 (101-111) mmol/L Carbon Dioxide 26 (22-32) mmol/L Anion Gap 6 (2-11) mmol/L BUN 8 (6-24) mg/dL Creatinine 0.86 (0.51-0.95) mg/dL Est GFR ( Amer) 86.9 (>60) Est GFR (Non-Af Amer) 67.5 (>60) BUN/Creatinine Ratio 9.3 (8-20) Glucose 95 (70-100) mg/dL Lactic Acid 0.9 (0.5-2.0) mmol/L Calcium 9.2 (8.6-10.3) mg/dL Total Bilirubin 0.40 (0.2-1.0) mg/dL AST 11 L (13-39) U/L ALT 13 (7-52) U/L Alkaline Phosphatase 85 (34-104) U/L Total Creatine Kinase 17 (10-223) U/L CK-MB (CK-2) 1.6 (0.6-6.3) ng/mL Troponin I 0.00 (<0.04) ng/mL C-Reactive Protein 21.66 H (< 5.00) mg/L Total Protein 6.1 L (6.4-8.9) g/dL Albumin 3.5 (3.2-5.2) g/dL Globulin 2.6 (2-4) g/dL Albumin/Globulin Ratio 1.3 (1-3) Result Diagrams: 02/17/17 17:37 02/17/17 17:37 Lab Statement: Any lab studies that have been ordered have been reviewed, and results considered in the medical decision making process. - Radiology CHEST X-RAY Xray Interpretation: No Acute Changes - IMPRESSION: No active cardiopulmonary disease Radiology Interpretation Completed By: Radiologist - EKG EKG 1656 Cardiac Rate: NL - 98 BPM EKG Rhythm: Sinus Rhythm EKG Interpretation: SINUS RHYTHM, NO ST ELEVATIONS Re-Evaluation - Re-Evaluation First Eval Re-Evaluation Time: 18:25 - On re-evaluation, the patient still had CP Change: Unchanged Chest Pain Course/Dx - Course Assessment/Plan: In the ED course an IV access was obtained. Patient was placed in a cardiac cath lab manager. Patient was started with IV fluids since she is slightly hypotensive. She is wheezing and she was given a Duoneb. Labs within normal limits except for Hb 11.3 , CRP 21.6. Troponin #1: 0.0. EKG shows a NSR at w /o ST elevations. CXR impression: No acute pathology. In the ED course she continues to have chest pain and her blood pressure is improved therefore she will she given Nitroglycerin. Chest pain slightly improve. I discuss my physical exam, findings and test results with Dr. Gold from the hospitalist services and she agrees to admit patient to his services. Patient is hemodynamically stable alert and oriented x 3. - Chest Pain Differential Diagnosis/HQI/PQRI: Acute CA, ACS, Angina, CHF, Chest Wall, GI Disease, Lower Respiratory Infection - Diagnoses Provider Diagnoses: CHest pain r/o ACS Discharge - Discharge Plan Condition: Stable Disposition: ADMITTED TO [facility] Discharge Disposition Comment: Admit and sign out to Dr. Gold. Referrals: Tom Schrader MD [Primary Care Provider] - The documentation as recorded by the Geraldo kiran Aidan accurately reflects the service I personally performed and the decisions made by me, Yovanny Roque MD.
[2017-02-18] MEDS ORDERED: Warfarin TAB(*) 3 MG PO ONE (19:00)
[2017-02-18] MEDS: Mirtazapine TAB* 15 MG PO SCH (19:29)
[2017-02-18] MEDS: OLANzapine TAB* 10 MG PO SCH (19:36)
[2017-02-19] MEDS: Nicotine Inhaler* 10 MG AMP INH PRN ×3 (05:29→12:43)
[2017-02-19 07:48] VITALS: BP 128/43
[2017-02-19] MEDS: Isosorbide Mononitrate ER TAB* 30 MG PO SCH (08:01)
[2017-02-19] MEDS: Metoprolol Tartrate TAB* 25 MG PO SCH (08:01)
[2017-02-19] MEDS: Tiotropium CAP.INH* CAP.INH/18 MCG INH SCH (08:02)
[2017-02-19] MEDS: Azithromycin TAB* 250 MG PO SCH (08:02)
[2017-02-19] MEDS: Omeprazole CAP* 20 MG PO SCH (08:02)
[2017-02-19] MEDS: Gabapentin CAP(*) 100 MG PO SCH (08:02)
[2017-02-19] MEDS: Mometasone/Formoter 200/5 MDI INH SCH (08:03)
[2017-02-19] MEDS: Lithium Carbonate TAB* 300 MG PO SCH (08:03)
[2017-02-19] MEDS: predniSONE TAB* 20 MG PO SCH (08:03)
[2017-02-19] MEDS: Montelukast Sodium TAB* 10 MG PO SCH (08:03)
--- NOTE | 2017-02-19 14:02 | PN ---
Subjective Date of Service: 02/19/17 Interval History: Patient seen and examined at bedside. Pt states that she is feeling well and would like to go home today. Denies fever, chills, shortness of breath, chest discomfort, N/V/D. Family History: Unchanged from Admission Social History: Unchanged from Admission Past Medical History: Unchanged from Admission Objective Active Medications: Acetaminophen (Tylenol Tab*) 650 mg PO Q4H PRN Reason: FEVER/PAIN Al Hydrox/Mg Hydrox/Simethicone (Maalox Plus*) 30 ml PO DAILY PRN Reason: INDIGESTION Albuterol (Ventolin Hfa Inhaler*) 2 puff INH Q4H PRN Reason: SOB/WHEEZING Atorvastatin Calcium (Lipitor*) 10 mg PO 1700 [facility] Azithromycin (Zithromax Tab*) 500 mg PO DAILY [facility] Stop: 02/22/17 19:59 Gabapentin (Neurontin Cap(*)) 100 mg PO BID [facility] Isosorbide Mononitrate (Imdur Er Tab*) 30 mg PO DAILY [facility] [place] Carbonate ([place] Carbonate Tab*) 300 mg PO BID [facility] Metoprolol Tartrate (Lopressor Tab*) 25 mg PO BID [facility] Mirtazapine (Remeron Tab*) 7.5 mg PO BEDTIME [facility] Mometasone Furoate/Formoterol Fumar (Dulera 200/5 Mdi*) 2 puff INH BID [facility] Montelukast Sodium (Singulair Tab*) 10 mg PO DAILY [facility] Nicotine (Nicotine Inhaler*) 10 mg INH Q2H PRN Reason: CRAVING Olanzapine (Zyprexa Tab*) 30 mg PO BEDTIME [facility] Omeprazole (Prilosec Cap*) 20 mg PO DAILY@0730 [facility] Reason: Protocol Prednisone (Deltasone Tab*) 40 mg PO DAILY [facility] Tiotropium [place] (Spiriva Cap.Inh*) 1 cap INH DAILY [facility] Vital Signs 02/18/17 02/18/17 02/18/17 15:11 18:29 19:30 Temperature 97.6 F Pulse Rate 86 Respiratory 18 18 18 Rate Blood Pressure 111/43 (mmHg) O2 Sat by Pulse 94 Oximetry 02/18/17 02/18/17 02/18/17 20:52 21:29 23:46 Temperature 98.9 F Pulse Rate 73 72 Respiratory 18 18 36 Rate Blood Pressure 119/21 (mmHg) O2 Sat by Pulse 93 92 Oximetry 02/18/17 02/19/17 02/19/17 23:50 01:26 03:47 Temperature 98.0 F Pulse Rate 56 Respiratory 24 Rate Blood Pressure 119/40 134/41 (mmHg) O2 Sat by Pulse 92 97 Oximetry 02/19/17 02/19/17 02/19/17 07:14 07:38 08:02 Temperature 98.5 F Pulse Rate 80 Respiratory 26 22 20 Rate Blood Pressure 128/43 (mmHg) O2 Sat by Pulse 94 Oximetry Oxygen Devices in Use Now: None Appearance: NAD, walking around in room Eyes: No Scleral Icterus Ears/Nose/Mouth/Throat: Mucous Membranes Moist Respiratory: Symmetrical Chest Expansion and Respiratory Effort, Clear to Auscultation Cardiovascular: NL Sounds; No Murmurs; No JVD, RRR Abdominal: NL Sounds; No Tenderness; No Distention Extremities: No Edema Skin: No Rash or Ulcers Neurological: Alert and Oriented x 3, NL Muscle Strength and Tone Lines/Tubes/Other Access: Clean, Dry and Intact Peripheral IV - site benign Nutrition: Taking PO's Result Diagrams: 02/18/17 07:24 02/18/17 10:03 Additional Lab and Data: Assess/Plan/Problems-Billing Assessment: - Patient Problems (1) COPD exacerbation Code(s): J44.1 - CHRONIC OBSTRUCTIVE PULMONARY DISEASE W (ACUTE) EXACERBATION SNOMED Code(s): 143742008 Comment: - Pt reports that her chest pain is at baseline - Suspect anxiety may be playing a component as well as persistent smoking. - Continue prednisone, azithromycin, duonebs, spiriva, and dulera. Home O2 at night. (2) Chest pain Code(s): R07.9 - CHEST PAIN, UNSPECIFIED SNOMED Code(s): 40418518 Comment: - Resolved - Reproducable CP thought to be secondary to cough and musculoskeletal pain. - Q waves noted on EKG but no noted EKG changes. - 3 flat troponins. - Nuc med stress test 01/2016 placed her low risk. - Has hx of angina with no supervisor wet room - Plan for her to see Dr. Hayes as an outpt for f/u in 2016, but been a no show to appointments. - Strongly encouraged to quit smoking. - Suggest outpt stress test once recovered from this COPD exacerbation (3) Hypertension Code(s): I10 - ESSENTIAL (PRIMARY) HYPERTENSION SNOMED Code(s): 02189678 Comment: - Normotensive - Continue Lisinopril and Imdur. (4) HLD (hyperlipidemia) Code(s): E78.5 - HYPERLIPIDEMIA, UNSPECIFIED SNOMED Code(s): 07221484 Comment: - Continue statin (5) Hx of deep venous thrombosis Code(s): Z86.718 - PERSONAL HISTORY OF OTHER VENOUS THROMBOSIS AND EMBOLISM SNOMED Code(s): 324508525 Comment: - INR 1.69 today - Continue warfarin, recheck INR on (6) GERD (gastroesophageal reflux disease) Code(s): K21.9 - GASTRO-ESOPHAGEAL REFLUX DISEASE WITHOUT ESOPHAGITIS SNOMED Code(s): 224198052 Comment: - Continue omeprazole. (7) Schizoaffective disorder, bipolar type Code(s): F25.0 - SCHIZOAFFECTIVE DISORDER, BIPOLAR TYPE SNOMED Code(s): 30687163 Comment: - Stable. - Continue home medication regimen, zyprexa, lithium and remeron. (8) Nicotine dependence Code(s): F17.200 - NICOTINE DEPENDENCE, UNSPECIFIED, UNCOMPLICATED SNOMED Code (s): 52678618 Comment: - Smoking cessation strongly encouraged, > 5 minutes spend in counseling. (9) DVT prophylaxis Code(s): VHC5242 - SNOMED Code(s): 534067590 Comment: - Continue Coumadin (10) Full code status Code(s): Z78.9 - OTHER SPECIFIED HEALTH STATUS SNOMED Code(s): 591810555 Status and Disposition: Inpatient. Stable for discharge to home
--- NOTE | 2017-02-20 11:38 | DS ---
CC: Tom Schrader MD * DISCHARGE SUMMARY: DATE OF ADMISSION: 02/17/17 DATE OF DISCHARGE: 02/19/17 ATTENDING PHYSICIAN: Larry Lehman MD *(dictated by Ashley Lau NP) PRIMARY CARE PHYSICIAN: Tom Schrader MD PRIMARY DIAGNOSES: 1. Chronic obstructive pulmonary disease exacerbation. 2. Chest pain, suspect related to the patient's chronic obstructive pulmonary disease exacerbation and coughing as it appears to be musculoskeletal in nature. SECONDARY DIAGNOSES: 1. Peripheral vascular disease. 2. Hypertension. 3. Hyperlipidemia. 4. Anxiety/depression. 5. History of left lower extremity deep vein thrombosis. 6. Irritable bowel syndrome. 7. Bipolar. 8. Schizophrenia. STUDIES WHILE IN THE HOSPITAL: Chest x-ray from 02/17/17. Radiologist's impression: No cardiopulmonary disease. DISCHARGE MEDICATIONS: New home medications: 1. Azithromycin 500 mg oral daily for 2 days. 2. Prednisone 10 mg tablet 40 mg oral daily x1 followed by 30 mg oral daily x3 , 20 mg oral daily x3, 10 mg oral daily x3, 5 mg oral daily x3. Continued home medications: 1. [place] 300 mg oral twice daily. 2. Breo Ellipta MDI 100/25 one puff inhalation daily. 3. Nexium 40 mg oral daily. 4. Atorvastatin 10 mg oral daily. 5. ProAir RespiClick 108 mcg inhalation every 4 hours as needed for shortness of breath or wheeze. 6. Albuterol 2.5 mg/3 mL 0.083% 2.5 mL inhalation every 2 hours as needed for shortness of breath or wheeze. 7. Maalox Plus 30 mL oral daily as needed for indigestion. 8. Zyprexa 30 mg oral daily at bedtime. 9. Singulair 10 mg oral daily. 10. Mirtazapine 7.5 mg oral daily at bedtime. 11. Metoprolol tartrate 25 mg oral twice daily. 12. Imdur ER 30 mg oral daily. 13. Gabapentin 100 mg oral twice daily. 14. Warfarin 3 mg oral daily. 15. Spiriva 1 capsule inhalation oral daily. HISTORY OF PRESENT ILLNESS/HOSPITAL COURSE: Ms. Camejo is a 61-year-old female with past medical history significant for COPD, peripheral vascular disease, hypertension, hyperlipidemia, history of left lower extremity DVT, bipolar disorder, and schizophrenia, who presented to the emergency room with complaints of sudden onset of chest discomfort that she described as a squeezing sensation that was worse when she smoked and was walking long distances. The patient also reported having difficulty with her breathing over the last several days with shortness of breath. The patient reported a chronic cough. Denied any fever, chills, nausea, vomiting, diaphoresis, or urinary symptoms. When the patient found nothing to relieve her symptoms, she presented to the emergency room for further evaluation of her symptoms. While in the emergency room, the patient received DuoNeb and Solu-Medrol and felt that she had some improvement in her shortness of breath and chest discomfort. The patient had a chest x-ray showing no active cardiopulmonary disease. She had an EKG showing sinus rhythm with a rate of 98. This EKG was similar to previous EKG from 02/06/17. The patient has been noted to have Q- waves on her EKG in the past and this is unchanged. Hospitalists were asked to evaluate the patient for admission. While in the hospital, the patient was placed on azithromycin oral and placed on a prednisone taper. On her first day of admission, she felt as though her shortness of breath had improved, but was not quite to her baseline. Her troponins remained flat. The patient also had improvement in her chest discomfort. The chest discomfort was reproducible with palpation to the mid sternum. Upon evaluating the patient's medical records, she last had a nuclear medicine stress test in January 2016 that placed her at a low risk. She does have a history of angina and does not have an outpatient propeller driven airplane mechanic. At that point , the patient had had a plan to see Dr. Hayes with Cardiology as an outpatient , but she never showed for her appointments and was a no show. The patient has been encouraged to stop smoking. On the next morning of the patient's admission , she reported that her breathing was back at her baseline and her chest pain had resolved. The patient had no leukocytosis and has remained afebrile. It is to note on the patient's first day of admission, her INR was supratherapeutic with 3.81. Her warfarin was held that day and her INR decreased to 2.86. She was resumed on her 3 mg of warfarin. On the day of discharge, the patient's INR is 1.69. Ms. Camejo is stable for discharge to home today. Vital signs are as follows : Temperature 95.8, heart rate 80, respiratory rate 22, O2 sat 94% on room air, blood pressure 128/43. DISCHARGE PLAN: Ms. Camejo will be discharged to home. ACTIVITY: As tolerated. DIET: She is going to be on a heart-healthy diet. For the patient's COPD exacerbation, she will be continued on azithromycin 500 mg daily for 2 more days in addition to prednisone taper which she should take 40 mg oral once in the morning followed by 30 mg oral daily for 3 days, 20 mg oral daily x3 days, 10 mg oral daily x3 days, and 5 mg oral daily x3 days. As far as the patient's chest discomfort, I suspect this is related to a COPD exacerbation and it is musculoskeletal as the pain is reproducible. The patient does have enough risk factors that this also could represent coronary artery disease. I recommend the patient be assisted in setting up outpatient followup with a propeller driven airplane mechanic and be considered to have an outpatient stress test once she has recovered from her COPD exacerbation. As far as the patient' s history of deep vein thrombosis, she is still on warfarin. Her INR was subtherapeutic today after being supratherapeutic at admission. For now, I am going to recommend the patient continue on 3 mg of warfarin daily. She is on azithromycin, so I am recommending she get an INR rechecked on , , as the azithromycin can increase her INR. The patient should be seen in followup by her primary care provider, Dr. Tom Schrader. She has an appointment on 02/27/17 at 9:40 a.m. The patient has been encouraged to stop smoking. The patient has been asked to return to the emergency room for return of shortness of breath or chest discomfort. This is a summarized report of a complex medical history and hospital stay. For further details, please see the entire medical record. TIME SPENT: Time for this discharge was 50 minutes and greater than half of that was spent [id number] with the patient, discussing discharge plans and instructions. CONDITION ON DISCHARGE: Stable. ASHLEY LAU, DAHIANA [id number]/[facility] #: [id number] ANNITA
== END 2017-02-19 15:06 | disposition home or self-care (01) | DRG 192 ==
LOC: ED 16:25 → MEDTELE 18:41 → OBSVTOIN 02-18 11:34
PROVIDERS: ADMIT Internal Medicine; ATTEND Internal Medicine
DX: J44.1 Chronic obstructive pulmonary disease with (acute) exacerbation (principal); I95.9 Hypotension, unspecified; R07.89 Other chest pain; I73.9 Peripheral vascular disease, unspecified; I10 Essential (primary) hypertension; E78.5 Hyperlipidemia, unspecified; K21.9 Gastro-esophageal reflux disease without esophagitis; F25.0 Schizoaffective disorder, bipolar type; F41.9 Anxiety disorder, unspecified; F32.9 Major depressive disorder, single episode, unspecified; K58.9 Irritable bowel syndrome, unspecified; R79.1 Abnormal coagulation profile; I25.10 Atherosclerotic heart disease of native coronary artery without angina pectoris; Z86.718 Personal history of other venous thrombosis and embolism; Z79.01 Long term (current) use of anticoagulants; Z88.0 Allergy status to penicillin; Z88.1 Allergy status to other antibiotic agents; Z88.5 Allergy status to narcotic agent; Z88.2 Allergy status to sulfonamides; Z88.8 Allergy status to other drugs, medicaments and biological substances; Z87.01 Personal history of pneumonia (recurrent)
CPT/HCPCS: 36415; 71020; 80048; 80053; 80061; 81003; 82550; 82553; 83605; 83880; 84484; 85025; 85610; 86140; 87040; 93005; 94640; 94760; A9270-GY; G0378; J2930; J7512

== ENCOUNTER 2017-03-17 11:33 | Emergency (ER) | payer MEDICARE, MEDICAID ==
--- NOTE | 2017-03-17 13:48 | RAD ---
HISTORY: Head injury, pain COMPARISONS: October 01, 2015 TECHNIQUE: Multiple contiguous axial CT scans were obtained of the head without intravenous contrast. FINDINGS: HEMORRHAGE/INFARCT: There is no hemorrhage or acute infarct. MASSES/SHIFT: There is no mass or shift. EXTRA-AXIAL SPACES: There are no extra-axial fluid collections. SULCI AND VENTRICLES: The sulci and ventricles are normal in size and position for the patient's stated age. CEREBRUM: There are no focal parenchymal abnormalities. BRAINSTEM: There are no focal parenchymal abnormalities. CEREBELLUM: There are no focal parenchymal abnormalities. VESSELS: The vessels are grossly normal. PARANASAL SINUSES: The paranasal sinuses are clear. ORBITS: The orbits are unremarkable. BONES AND SOFT TISSUE: No bone or soft tissue abnormalities are noted. OTHER: None IMPRESSION: NO ACUTE INTRACRANIAL PATHOLOGY.
[2017-03-17] MEDS ORDERED: Ketorolac INJ* 30 MG/ML 1 ML VIAL IV ONE (14:31)
[2017-03-17] MEDS ORDERED: diPHENhydraMINE IV* 50 MG/ML 1 ml VIAL (BENADRYL) IV ONE (14:31)
[2017-03-17] MEDS ORDERED: Metoclopramide IV* 5 MG/ML 2 ML VIAL IV ONE (14:31)
[2017-03-17] MEDS ORDERED: NS 0.9% 1000 ML* 1,000 ML IV ONE (14:31)
[2017-03-17 16:04] VITALS: BP 134/65
--- NOTE | 2017-03-17 18:12 | ED ---
Chacorta Laboy Alfonso, scribed for Elliott Tang MD on 03/17/17 at 1401 . Head Injury - HPI Summary HPI Summary: This patient is a 61 year old F BIBA to [facility] with a chief complaint of a throbbing diffuse headache since 1000 yesterday. Pt reports the headache is making her sick to my stomach. Per EMS, pt reported hitting her head when closing her car trunk yesterday. Pt rates the pain 8/10 in severity. Symptoms aggravated and alleviated by nothing. Pt reports brief LOC, vomiting, and dizziness. Pt denies neck pain. PMHx of COPD, HTN, bipolar disorder, seizures, and schizophrenia. - History Of Current Complaint Chief Complaint: EDHeadInjury Stated Complaint: HEAD INJURY Time Seen by Provider: 03/17/17 13:48 Hx Obtained From: Patient Mechanism Of Injury: Blunt Trauma - Trunk of car closing Onset/Duration: Started Days Ago - Yesterday Onset of Pain: Prior to Arrival Severity Currently: Severe Severity Initially: Severe Pain Intensity: 8 Pain Scale Used: 0-10 Numeric Location: Diffuse Character: Throbbing Aggravating Factor(s): Other: - Nothing Alleviating Factor(s): Other: - Nothing Associated Signs And Symptoms: LOC (Time In Secs./Mins/Hrs) - Brief, Vomiting, Other: - Positive dizziness; negative neck pain - Allergies/Home Medications Allergies/Adverse Reactions: Allergies Allergy/AdvReac Type Severity Reaction Status Date / Time Bupropion [From Wellbutrin] Allergy Severe Agitation Verified 02/17/17 16:37 Cephalosporins Allergy Severe Agitation Verified 02/17/17 16:37 Penicillins [PCN] Allergy Intermediate Hives Verified 02/17/17 16:37 Chlorpromazine AdvReac Severe Diarrhea Verified 02/17/17 16:37 Erythromycin AdvReac Intermediate Diarrhea Verified 02/17/17 16:37 Tobramycin AdvReac Intermediate Diarrhea Verified 02/17/17 16:37 PMH/Surg Hx/FS Hx/Imm Hx Endocrine/Hematology History: Reports: Hx Anticoagulant Therapy - warfarin, Other Endocrine/Hematological Disorders - L leg DVT Denies: Hx Diabetes, Hx Systemic Lupus Erythematosus, Hx Thyroid Disease Cardiovascular History: Reports: Hx Angina, Hx Coronary Artery Disease, Hx Deep Vein Thrombosis, Hx Hypercholesterolemia, Hx Hypertension, Hx Peripheral Vascular Disease, Other Cardiovascular Problems/Disorders - PERIPHERAL ARTERY DISEASE; CAD; DVT Denies: Hx Congestive Heart Failure, Hx Pacemaker/ICD Respiratory History: Reports: Hx Asthma, Hx Chronic Bronchitis, Hx Chronic Obstructive Pulmonary Disease (COPD), Hx Pneumonia, Hx Seasonal Allergies, Other Respiratory Problems/Disorders - PNA Denies: Hx Cystic Fibrosis, Hx Lung Cancer, Hx Pleural Effusion, Hx Pulmonary Edema, Hx Pulmonary Embolism, Hx Sleep Apnea GI History: Reports: Hx Gall Bladder Disease - removed, Hx Gastroesophageal Reflux Disease, Hx Irritable Bowel, Other GI Disorders - hernia repair X 2 Denies: Hx Cirrhosis, Hx Crohn's Disease, Hx Diverticulosis History: Denies: Hx Dialysis, Hx Renal Disease Musculoskeletal History: Denies: Hx Arthritis, Hx Rheumatoid Arthritis, Hx Osteoporosis Sensory History: Reports: Hx Contacts or Glasses Denies: Hx Glaucoma, Hx Deafness, Hx Hearing Aid, Hx Hearing Problem Opthamlomology History: Reports: Hx Contacts or Glasses Denies: Hx Glaucoma Neurological History: Denies: Hx Headaches, Hx Seizures, Hx Transient Ischemic Attacks (TIA) Psychiatric History: Reports: Hx Anxiety, Hx Depression, Hx Inpatient Treatment , Hx Community Mental Health Tx, Hx Schizophrenia, Hx Bipolar Disorder, Hx Suicide Attempt Denies: Hx Eating Disorder, Hx Panic Disorder, Hx of Violent Episodes Against Others - Cancer History Hx Chemotherapy: No - Surgical History Surgery Procedure, Year, and Place: bilat thumb repairs, hernia repairs X 2, cholecystectomy, appendectomy Hx Anesthesia Reactions: No - Immunization History Date of Tetanus Vaccine: unknown Infectious Disease History: No Infectious Disease History: Denies: Hx Clostridium Difficile, Hx Hepatitis, Hx Human Immunodeficiency Virus (HIV), Hx of Known/Suspected MRSA, Hx Shingles, Hx Tuberculosis, Traveled Outside the [place] in Last 30 Days - Family History Known Family History: Positive: Other - schizophrenia, anxiety Negative: Cardiac Disease, Hypertension, Diabetes Family History: Negative HTN/Cardiac/DM per EMR - Social History Alcohol Use: None Hx Substance Use: No Substance Use Type: Reports: None Hx Tobacco Use: Yes Smoking Status (MU): Light Every Day Tobacco Smoker Type: Cigarettes Amount Used/How Often: half a pack a day Have You Smoked in the Last Year: Yes Review of Systems Positive: Vomiting Positive: Arthralgia - Negative neck pain Neurological: Other - Positive brief LOC, and dizziness; Positive: Headache - Throbbing All Other Systems Reviewed And Are Negative: Yes Physical Exam Triage Information Reviewed: Yes Vital Signs On Initial Exam: Initial Vitals Temp Pulse Resp BP Pulse Ox 97.8 F 88 36 141/127 93 03/17/17 11:37 03/17/17 11:37 03/17/17 11:37 03/17/17 11:37 03/17/17 11:37 Vital Signs Reviewed: Yes Appearance: Positive: Well-Appearing, No Pain Distress Skin: Positive: Warm, Skin Color Reflects Adequate Perfusion, Dry Head/Face: Positive: Normal Head/Face Inspection Eyes: Positive: Normal ENT: Positive: Normal ENT inspection Neck: Positive: Supple, Nontender Respiratory/Lung Sounds: Positive: Clear to Auscultation, Breath Sounds Present Cardiovascular: Positive: RRR Abdomen Description: Positive: Nontender, Soft Bowel Sounds: Positive: Present Musculoskeletal: Positive: Normal, Strength/ROM Intact Neurological: Positive: Normal, Sensory/Motor Intact, Alert, Oriented to Person Place, Time, CN Intact II-III Psychiatric: Positive: Affect/Mood Appropriate - Callie Coma Scale Coma Scale Total: 15 Diagnostics - Vital Signs Vital Signs Temp Pulse Resp BP Pulse Ox 03/17/17 13:30 82 97 03/17/17 13:00 84 30 113/59 97 03/17/17 12:30 85 27 124/66 97 03/17/17 12:00 85 31 114/57 97 03/17/17 11:56 86 97 03/17/17 11:55 123/52 03/17/17 11:40 111/63 03/17/17 11:37 97.8 F 88 36 141/127 93 - Laboratory Lab Statement: Any lab studies that have been ordered have been reviewed, and results considered in the medical decision making process. - CT Brain CT CT Interpretation Completed By: Radiologist - NO ACUTE INTRACRANIAL PATHOLOGY. - EKG 1146 Cardiac Rate: NL - BPM 86 EKG Rhythm: Sinus Rhythm Re-Evaluation - Re-Evaluation Second Eval Re-Evaluation Time: 16:11 Change: Improved - Pt symptoms have improved in the ED course Head Injury Course/Dx Course Of Treatment: Ms. Camejo got hit in the head yesterday and woke up with a significant HERRERA associated with photophobia and nausea. A CT was negative and she improved with a migraine 'cocktail' of toradol, benadryl, reglan and NS. - Diagnoses Provider Diagnoses: Concussion Discharge - Discharge Plan Condition: Stable Disposition: HOME Patient Education Materials: Concussion (ED) Referrals: Tom Schrader MD [Primary Care Provider] - 1 Week The documentation as recorded by the Chacorta kiran Alfonso accurately reflects the service I personally performed and the decisions made by me, Elliott Tang MD.
== END 2017-03-17 16:31 | disposition home or self-care (01) ==
LOC: ED 11:33
DX: S06.0X9A Concussion with loss of consciousness of unspecified duration, initial encounter (principal); R11.10 Vomiting, unspecified; R51 Headache; F17.210 Nicotine dependence, cigarettes, uncomplicated; W22.8XXA Striking against or struck by other objects, initial encounter; Y93.89 Activity, other specified; Y92.9 Unspecified place or not applicable
CPT/HCPCS: 70450; 93005; 96374; 96375; 99282; J1200; J1885

== ENCOUNTER → 2017-03-18 11:04 | Emergency (ER) | payer MEDICARE, MEDICAID ==
[~2017-03-18 11:04] MED LIST: HYDROmorphone* 1 MG/ML 1 ML SYR IV ONE; Ketorolac INJ* 30 MG/ML 1 ML VIAL IV ONE; NS 0.9% 1000 ML* 1,000 ML IV ONE; Ondansetron INJ* 2 MG/ML VIAL IV ONE; diPHENhydraMINE IV* 50 MG/ML 1 ml VIAL (BENADRYL) IV ONE
--- NOTE | 2017-03-18 13:04 | RAD ---
HISTORY: Headache COMPARISONS: March 17, 2017 TECHNIQUE: Multiple contiguous axial CT scans were obtained of the head without intravenous contrast. FINDINGS: HEMORRHAGE/INFARCT: There is no hemorrhage or acute infarct. MASSES/SHIFT: There is no mass or shift. EXTRA-AXIAL SPACES: There are no extra-axial fluid collections. SULCI AND VENTRICLES: The sulci and ventricles are normal in size and position for the patient's stated age. CEREBRUM: There are no focal parenchymal abnormalities. BRAINSTEM: There are no focal parenchymal abnormalities. CEREBELLUM: There are no focal parenchymal abnormalities. VESSELS: The vessels are grossly normal. PARANASAL SINUSES: The paranasal sinuses are clear. ORBITS: The orbits are unremarkable. BONES AND SOFT TISSUE: No bone or soft tissue abnormalities are noted. OTHER: None IMPRESSION: NO ACUTE INTRACRANIAL PATHOLOGY.
[2017-03-18 13:36] LABS: Hematocrit 34 % (35-47); Hemoglobin 11.1 g/dl (12.0-16.0); Mean Corpuscular HGB Conc 32 g/dl (31-36); Mean Corpuscular Hemoglobin 28 pg (27-31); Mean Corpuscular Volume 87 fL (80-97); Mean Platelet Volume 9 um3 (7.4-10.4); Red Blood Count 3.97 10^6/ul (4.0-5.4); Red Cell Distribution Width 17 % (10.5-15); White Blood Count 7.8 10^3/ul (3.5-10.8)
[2017-03-18 14:17] LABS: Albumin 3.1 g/dL (3.2-5.2); BUN/Creatinine Ratio 10.5 (8-20); Calcium 8.6 mg/dL (8.6-10.3); EGFR African American 77.4 (>60); EGFR Non-African American 60.2 (>60); Globulin 2.1 g/dL (2-4); Potassium 3.9 mmol/L (3.5-5.0); Total Bilirubin 0.4 mg/dL (0.2-1.0); Total Protein 5.2 g/dL (6.4-8.9)
[2017-03-18 15:32] VITALS: BP 121/60
--- NOTE | 2017-03-18 21:17 | ED ---
Yefri Laboy SooYoung, scribed for Elliott Tang MD on 03/18/17 at 1219 . Neurological HPI - HPI Summary HPI Summary: A 61 y/o F presents to ED with c/o R-sided weakness onset this AM. Associated sx : nausea/vomiting with multiple episodes, photophobia, shaking, dizziness, diffuse HERRERA which returned yesterday evening. Pt was unable to sleep last night and was having difficulty ambulating. Pt was seen in ED yesterday by Dr. Tang. Pt had improved in ED and was D/C home. - History of Current Complaint Chief Complaint: EDWeakness Stated Complaint: WEAKNESS, HEADACHE Time Seen by Provider: 03/18/17 12:12 Hx Obtained From: Patient Onset/Duration: Started days ago - last night, Still Present Timing: Constant Onset Severity: Moderate Current Severity: Moderate Headache Location: Diffuse (Right), Diffuse (Left) Pain Intensity: 8 Pain Scale Used: 0-10 Numeric Character: Weak, Dizzy Associated Signs and Symptoms: Positive: Unsteady Gait, Visual Changes - photophobia, Headache, Weakness, Dizziness, Nausea/Vomiting - Additional Pertinent History Primary Care Physician: [id number] - Allergy/Home Medications Allergies/Adverse Reactions: Allergies Allergy/AdvReac Type Severity Reaction Status Date / Time Bupropion [From Wellbutrin] Allergy Severe Agitation Verified 02/17/17 16:37 Cephalosporins Allergy Severe Agitation Verified 02/17/17 16:37 Penicillins [PCN] Allergy Intermediate Hives Verified 02/17/17 16:37 Chlorpromazine AdvReac Severe Diarrhea Verified 02/17/17 16:37 Erythromycin AdvReac Intermediate Diarrhea Verified 02/17/17 16:37 Tobramycin AdvReac Intermediate Diarrhea Verified 02/17/17 16:37 PMH/Surg Hx/FS Hx/Imm Hx Previously Healthy: No Endocrine/Hematology History: Reports: Hx Anticoagulant Therapy, Other Endocrine /Hematological Disorders - L leg DVT Denies: Hx Diabetes, Hx Systemic Lupus Erythematosus, Hx Thyroid Disease Cardiovascular History: Reports: Hx Angina, Hx Coronary Artery Disease, Hx Deep Vein Thrombosis, Hx Hypercholesterolemia, Hx Hypertension, Hx Peripheral Vascular Disease, Other Cardiovascular Problems/Disorders - PERIPHERAL ARTERY DISEASE; CAD; DVT Denies: Hx Congestive Heart Failure, Hx Pacemaker/ICD Respiratory History: Reports: Hx Asthma, Hx Chronic Bronchitis, Hx Chronic Obstructive Pulmonary Disease (COPD), Hx Pneumonia, Hx Seasonal Allergies, Other Respiratory Problems/Disorders - PNA Denies: Hx Cystic Fibrosis, Hx Lung Cancer, Hx Pleural Effusion, Hx Pulmonary Edema, Hx Pulmonary Embolism, Hx Sleep Apnea GI History: Reports: Hx Gall Bladder Disease - removed, Hx Gastroesophageal Reflux Disease, Hx Irritable Bowel, Other GI Disorders - hernia repair X 2 Denies: Hx Cirrhosis, Hx Crohn's Disease, Hx Diverticulosis History: Denies: Hx Dialysis, Hx Renal Disease Musculoskeletal History: Denies: Hx Arthritis, Hx Rheumatoid Arthritis, Hx Osteoporosis Sensory History: Reports: Hx Contacts or Glasses Denies: Hx Glaucoma, Hx Deafness, Hx Hearing Aid, Hx Hearing Problem Opthamlomology History: Reports: Hx Contacts or Glasses Denies: Hx Glaucoma Neurological History: Denies: Hx Headaches, Hx Seizures, Hx Transient Ischemic Attacks (TIA) Psychiatric History: Reports: Hx Anxiety, Hx Depression, Hx Inpatient Treatment , Hx Community Mental Health Tx, Hx Schizophrenia, Hx Bipolar Disorder, Hx Suicide Attempt Denies: Hx Eating Disorder, Hx Panic Disorder, Hx of Violent Episodes Against Others - Cancer History Hx Chemotherapy: No - Surgical History Surgery Procedure, Year, and Place: bilat thumb repairs, hernia repairs X 2, cholecystectomy, appendectomy Hx Anesthesia Reactions: No - Immunization History Date of Tetanus Vaccine: unknown Infectious Disease History: No Infectious Disease History: Denies: Hx Clostridium Difficile, Hx Hepatitis, Hx Human Immunodeficiency Virus (HIV), Hx of Known/Suspected MRSA, Hx Shingles, Hx Tuberculosis, Traveled Outside the [place] in Last 30 Days - Family History Known Family History: Positive: Other - schizophrenia, anxiety Negative: Cardiac Disease, Hypertension, Diabetes Family History: Negative HTN/Cardiac/DM per EMR - Social History Occupation: Disabled Lives: Alone Alcohol Use: Rare Hx Substance Use: No Substance Use Type: Reports: None Hx Tobacco Use: Yes Smoking Status (MU): Light Every Day Tobacco Smoker Type: Cigarettes Amount Used/How Often: half a pack a day Have You Smoked in the Last Year: Yes Review of Systems Negative: Fever Positive: Photophobia Positive: Vomiting, Nausea Neurological: Other - pos: dizzines, "shaking" Positive: Headache, Weakness All Other Systems Reviewed And Are Negative: Yes Physical Exam Triage Information Reviewed: Yes Vital Signs On Initial Exam: Initial Vitals Temp Pulse Resp BP Pulse Ox 98 F 110 22 132/63 97 03/18/17 11:05 03/18/17 11:05 03/18/17 11:05 03/18/17 11:05 03/18/17 11:05 Vital Signs Reviewed: Yes Appearance: Positive: Well-Appearing, Pain Distress - moderate Skin: Positive: Warm, Skin Color Reflects Adequate Perfusion, Dry Head/Face: Positive: Normal Head/Face Inspection Eyes: Positive: Normal ENT: Positive: Normal ENT inspection Neck: Positive: Supple, Nontender Respiratory/Lung Sounds: Positive: Clear to Auscultation, Breath Sounds Present Cardiovascular: Positive: RRR Abdomen Description: Positive: Nontender, Soft Musculoskeletal: Positive: Normal Neurological: Positive: Normal, Sensory/Motor Intact, Alert, Oriented to Person Place, Time, CN Intact II-III Psychiatric: Positive: Normal, Affect/Mood Appropriate - Callie Coma Scale Coma Scale Total: 15 Diagnostics - Vital Signs Vital Signs Temp Pulse Resp BP Pulse Ox 03/18/17 11:30 108 32 122/56 98 03/18/17 11:22 108 36 117/52 97 03/18/17 11:21 109 31 98 03/18/17 11:11 98 F 110 22 132/63 97 03/18/17 11:05 98 F 110 22 132/63 97 - Laboratory Lab Results: Lab Results 03/18/17 03/18/17 03/18/17 Range/Units 13:23 13:23 13:23 WBC 7.8 (3.5-10.8) 10^3/ul RBC 3.97 L (4.0-5.4) 10^6/ul Hgb 11.1 L (12.0-16.0) g/dl Hct 34 L (35-47) % MCV 87 (80-97) fL MCH 28 (27-31) pg MCHC 32 (31-36) g/dl RDW 17 H (10.5-15) % Plt Count 162 (150-450) 10^3/ul MPV 9 (7.4-10.4) um3 Neut % (Auto) 78.3 (38-83) % Lymph % (Auto) 13.8 L (25-47) % [place] % (Auto) 5.7 (1-9) % Eos % (Auto) 1.8 (0-6) % Baso % (Auto) 0.4 (0-2) % Absolute Neuts (auto) 6.1 (1.5-7.7) 10^3/ul Absolute Lymphs (auto) 1.1 (1.0-4.8) 10^3/ul Absolute Monos (auto) 0.4 (0-0.8) 10^3/ul Absolute Eos (auto) 0.1 (0-0.6) 10^3/ul Absolute Basos (auto) 0 (0-0.2) 10^3/ul Absolute Nucleated RBC 0 10^3/ul Nucleated RBC % 0.1 INR (Anticoag Therapy) 1.40 H (0.89-1.11) Sodium 138 (133-145) mmol/L Potassium 3.9 (3.5-5.0) mmol/L Chloride 109 (101-111) mmol/L Carbon Dioxide 26 (22-32) mmol/L Anion Gap 3 (2-11) mmol/L BUN 10 (6-24) mg/dL Creatinine 0.95 (0.51-0.95) mg/dL Est GFR ( Amer) 77.4 (>60) Est GFR (Non-Af Amer) 60.2 (>60) BUN/Creatinine Ratio 10.5 (8-20) Glucose 77 (70-100) mg/dL Lactic Acid (0.5-2.0) mmol/L Calcium 8.6 (8.6-10.3) mg/dL Total Bilirubin 0.40 (0.2-1.0) mg/dL AST 10 L (13-39) U/L ALT 5 L (7-52) U/L Alkaline Phosphatase 83 (34-104) U/L Total Protein 5.2 L (6.4-8.9) g/dL Albumin 3.1 L (3.2-5.2) g/dL Globulin 2.1 (2-4) g/dL Albumin/Globulin Ratio 1.5 (1-3) 03/18/17 Range/Units 13:23 WBC (3.5-10.8) 10^3/ul RBC (4.0-5.4) 10^6/ul Hgb (12.0-16.0) g/dl Hct (35-47) % MCV (80-97) fL MCH (27-31) pg MCHC (31-36) g/dl RDW (10.5-15) % Plt Count (150-450) 10^3/ul MPV (7.4-10.4) um3 Neut % (Auto) (38-83) % Lymph % (Auto) (25-47) % [place] % (Auto) (1-9) % Eos % (Auto) (0-6) % Baso % (Auto) (0-2) % Absolute Neuts (auto) (1.5-7.7) 10^3/ul Absolute Lymphs (auto) (1.0-4.8) 10^3/ul Absolute Monos (auto) (0-0.8) 10^3/ul Absolute Eos (auto) (0-0.6) 10^3/ul Absolute Basos (auto) (0-0.2) 10^3/ul Absolute Nucleated RBC 10^3/ul Nucleated RBC % INR (Anticoag Therapy) (0.89-1.11) Sodium (133-145) mmol/L Potassium (3.5-5.0) mmol/L Chloride (101-111) mmol/L Carbon Dioxide (22-32) mmol/L Anion Gap (2-11) mmol/L BUN (6-24) mg/dL Creatinine (0.51-0.95) mg/dL Est GFR ( Amer) (>60) Est GFR (Non-Af Amer) (>60) BUN/Creatinine Ratio (8-20) Glucose (70-100) mg/dL Lactic Acid 0.8 (0.5-2.0) mmol/L Calcium (8.6-10.3) mg/dL Total Bilirubin (0.2-1.0) mg/dL AST (13-39) U/L ALT (7-52) U/L Alkaline Phosphatase (34-104) U/L Total Protein (6.4-8.9) g/dL Albumin (3.2-5.2) g/dL Globulin (2-4) g/dL Albumin/Globulin Ratio (1-3) Result Diagrams: 03/18/17 13:23 03/18/17 13:23 Lab Statement: Any lab studies that have been ordered have been reviewed, and results considered in the medical decision making process. - CT BRAIN CT CT Interpretation: No Acute Changes - IMPRESSION: No acute intracranial pathology. 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-Paretic Hand: Both Correctly Best Gaze (Only Horizontal Eye Movement): Normal Visual Field Testing: No Visual Loss Facial Paresis-Pt to Smile & Close Eyes or Grimace Symmetry: Normal/Symmetrical Motor Function - Right Arm: No Drift-Holds 10 Seconds Motor Function - Left Arm: No Drift-Holds 10 Seconds Motor Function - Right Leg: No Drift-Holds 10 Seconds Motor Function - Left Leg: No Drift-Holds 10 Seconds Limb Ataxia-Must be out of Proportion to Weakness Present: Absent Sensory (Use Pinprick to Test Arms/Legs/Trunk/Face): Normal Best Language (Describe Picture, Name Items): No Aphasia Dysarthria (Read Several Words): Normal Extinction and Inattention: No Abnormality Total Score: 0 Re-Evaluation - Re-Evaluation 1 Re-Evaluation Time: 14:10 Change: Unchanged Comment: Discussing results with pt. Pt is not improved. 2 Re-Evaluation Time: 15:37 Change: Improved Comment: Pt states feeling better. Will DC home with Percocet and f/u with PCP. Course/Dx - Course Course Of Treatment: Pt is a 61 y/o F presenting with c/o R-sided weakness onset this AM. Associated sx: nausea/vomiting with multiple episodes, unsteady gait, photophobia, shaking, dizziness, diffuse HERRERA which returned yesterday evening. Pt was seen in ED yesterday by Dr. Tang. Pt had improved in ED and was D/C home. She had improved completely with a 'migraine cocktail' yesterday but in the evening the HERRERA returned and she has a myriad of C/O associated with it. All of her symptoms improved with treatment of her HERRERA. Pt given Benadryl, Toradol, Zofran and fluids in ED. BRAIN CT is negative. INR is 1.4. Lactic is WNL. Will D/C home with Percocet, f/u PCP. - Diagnoses Provider Diagnoses: Concussion, Headache Discharge - Discharge Plan Condition: Stable Disposition: HOME Prescriptions: oxyCODONE/Acetamin 5/325 MG* [Percocet 5/325 TAB*] 1 tab PO Q6H PRN #20 tab MDD 4 PRN Reason: Pain Patient Education Materials: Oxycodone/Acetaminophen (By mouth), Concussion (ED ), Acute Headache (ED) Referrals: Tom Schrader MD [Primary Care Provider] - 1 Week Additional Instructions: FOLLOW UP WITH YOUR PRIMARY CARE PROVIDER THIS WEEK. PLEASE RETURN TO ED IF YOU EXPERIENCE NEW OR WORSENING SYMPTOMS. The documentation as recorded by the Yefri kiran SooYoung accurately reflects the service I personally performed and the decisions made by me, Elliott Tang MD.
== END | disposition home or self-care (01) ==
LOC: ED 11:04
DX: S06.0X9S Concussion with loss of consciousness of unspecified duration, sequela (principal); X58.XXXS Exposure to other specified factors, sequela; R51 Headache; R11.2 Nausea with vomiting, unspecified; Z86.718 Personal history of other venous thrombosis and embolism; Z79.01 Long term (current) use of anticoagulants; I25.119 Atherosclerotic heart disease of native coronary artery with unspecified angina pectoris; I10 Essential (primary) hypertension; I73.9 Peripheral vascular disease, unspecified; E78.00 Pure hypercholesterolemia, unspecified; J44.9 Chronic obstructive pulmonary disease, unspecified; Z90.49 Acquired absence of other specified parts of digestive tract; Z88.1 Allergy status to other antibiotic agents; Z88.0 Allergy status to penicillin; Z88.8 Allergy status to other drugs, medicaments and biological substances; F17.210 Nicotine dependence, cigarettes, uncomplicated
CPT/HCPCS: 36415; 70450; 80053; 83605; 85025; 85610; 96361; 96374; 96375; 99283; J1170; J1200; J1885; J2405

== ENCOUNTER 2017-03-27 21:59 | Emergency (ER) | payer MEDICARE, MEDICAID ==
[2017-03-27 22:25] LABS: Add Diff/Slide Review? Slide Review Added; Comments Flag Yes; Hematocrit 39 % (35-47); Hemoglobin 12.3 g/dl (12.0-16.0); Mean Corpuscular HGB Conc 32 g/dl (31-36); Mean Corpuscular Hemoglobin 28 pg (27-31); Mean Corpuscular Volume 87 fL (80-97); Mean Platelet Volume 9 um3 (7.4-10.4); Red Blood Count 4.49 10^6/ul (4.0-5.4); Red Cell Distribution Width 17 % (10.5-15); White Blood Count 9.9 10^3/ul (3.5-10.8)
[2017-03-27 22:36] LABS: Albumin 3.7 g/dL (3.2-5.2); BUN/Creatinine Ratio 8.3 (8-20); C Reactive Protein 2.28 mg/L (< 5.00); Calcium 9.5 mg/dL (8.6-10.3); EGFR African American 89.2 (>60); EGFR Non-African American 69.4 (>60); Globulin 2.5 g/dL (2-4); Magnesium 1.7 mg/dL (1.9-2.7); Potassium 3.9 mmol/L (3.5-5.0); Total Bilirubin 0.4 mg/dL (0.2-1.0); Total Protein 6.2 g/dL (6.4-8.9)
[2017-03-27] MEDS ORDERED: methylPREDNISolone 125 MG* 2 ML VIAL IV ONE (22:37)
[2017-03-27] MEDS ORDERED: Albuterol/Ipratropium NEB.SOL* Albuterol 2.5 MG/Ipratropium 0.5 MG 3 ML INH ONE (22:37)
[2017-03-27 22:38] LABS: Troponin I 0.01 ng/mL (<0.04)
[2017-03-27] MEDS ORDERED: LORazepam INJ* 2 MG/ML 1 ML VIAL IV ONE (22:52)
[2017-03-27 23:01] LABS: TSH (Thyroid Stimulating Horm) 2.68 mcIU/mL (0.34-5.60)
--- NOTE | 2017-03-27 23:23 | ED ---
Gisela Laboy Edward, scribed for Elliott Tnag MD on 03/27/17 at 2237 . Shortness of Breath - HPI Summary HPI Summary: 61 y/o female BIBA c/o SOB for 2 days. Associated sx: L ankle edema. Patient denies fever and productive cough. She uses a nebulizer. PMHx blood clot in L leg years ago. - History of Current Complaint Chief Complaint: EDShortnessOfBreath Time Seen by Provider: 03/27/17 22:28 Hx Obtained From: Patient Onset/Duration: Lasting Days - Couple of days Associated Signs & Symptoms: Negative - No fever or productive cough, Edema - L ankle - Allergy/Home Medications Allergies/Adverse Reactions: Allergies Allergy/AdvReac Type Severity Reaction Status Date / Time Bupropion [From Wellbutrin] Allergy Severe Agitation Verified 02/17/17 16:37 Cephalosporins Allergy Severe Agitation Verified 02/17/17 16:37 Penicillins [PCN] Allergy Intermediate Hives Verified 02/17/17 16:37 Chlorpromazine AdvReac Severe Diarrhea Verified 02/17/17 16:37 Erythromycin AdvReac Intermediate Diarrhea Verified 02/17/17 16:37 Tobramycin AdvReac Intermediate Diarrhea Verified 02/17/17 16:37 PMH/Surg Hx/FS Hx/Imm Hx Previously Healthy: No Endocrine/Hematology History: Reports: Hx Anticoagulant Therapy, Other Endocrine /Hematological Disorders - L leg DVT Denies: Hx Diabetes, Hx Systemic Lupus Erythematosus, Hx Thyroid Disease Cardiovascular History: Reports: Hx Angina, Hx Coronary Artery Disease, Hx Deep Vein Thrombosis, Hx Hypercholesterolemia, Hx Hypertension, Hx Peripheral Vascular Disease, Other Cardiovascular Problems/Disorders - PERIPHERAL ARTERY DISEASE; CAD; DVT Denies: Hx Congestive Heart Failure, Hx Pacemaker/ICD Respiratory History: Reports: Hx Asthma, Hx Chronic Bronchitis, Hx Chronic Obstructive Pulmonary Disease (COPD), Hx Pneumonia, Hx Seasonal Allergies, Other Respiratory Problems/Disorders - PNA Denies: Hx Cystic Fibrosis, Hx Lung Cancer, Hx Pleural Effusion, Hx Pulmonary Edema, Hx Pulmonary Embolism, Hx Sleep Apnea GI History: Reports: Hx Gall Bladder Disease - removed, Hx Gastroesophageal Reflux Disease, Hx Irritable Bowel, Other GI Disorders - hernia repair X 2 Denies: Hx Cirrhosis, Hx Crohn's Disease, Hx Diverticulosis History: Denies: Hx Dialysis, Hx Renal Disease Musculoskeletal History: Denies: Hx Arthritis, Hx Rheumatoid Arthritis, Hx Osteoporosis Sensory History: Reports: Hx Contacts or Glasses Denies: Hx Glaucoma, Hx Deafness, Hx Hearing Aid, Hx Hearing Problem Opthamlomology History: Reports: Hx Contacts or Glasses Denies: Hx Glaucoma Neurological History: Denies: Hx Headaches, Hx Seizures, Hx Transient Ischemic Attacks (TIA) Psychiatric History: Reports: Hx Anxiety, Hx Depression, Hx Inpatient Treatment , Hx Community Mental Health Tx, Hx Schizophrenia, Hx Bipolar Disorder, Hx Suicide Attempt Denies: Hx Eating Disorder, Hx Panic Disorder, Hx of Violent Episodes Against Others - Cancer History Hx Chemotherapy: No - Surgical History Surgery Procedure, Year, and Place: bilat thumb repairs, hernia repairs X 2, cholecystectomy, appendectomy Hx Anesthesia Reactions: No - Immunization History Date of Tetanus Vaccine: unknown Infectious Disease History: No Infectious Disease History: Denies: Hx Clostridium Difficile, Hx Hepatitis, Hx Human Immunodeficiency Virus (HIV), Hx of Known/Suspected MRSA, Hx Shingles, Hx Tuberculosis, Traveled Outside the [place] in Last 30 Days - Family History Known Family History: Positive: Other - schizophrenia, anxiety Negative: Cardiac Disease, Hypertension, Diabetes Family History: Negative HTN/Cardiac/DM per EMR - Social History Alcohol Use: Rare Hx Substance Use: No Substance Use Type: Reports: None Hx Tobacco Use: Yes Smoking Status (MU): Light Every Day Tobacco Smoker Type: Cigarettes Amount Used/How Often: half a pack a day Have You Smoked in the Last Year: Yes Review of Systems Constitutional: Negative Eyes: Negative ENT: Negative Cardiovascular: Negative Positive: Shortness Of Breath. Negative: Cough Gastrointestinal: Negative Genitourinary: Negative Positive: Edema - L ankle Skin: Negative Neurological: Negative Psychological: Normal All Other Systems Reviewed And Are Negative: Yes Physical Exam Triage Information Reviewed: Yes Vital Signs On Initial Exam: Initial Vitals BP 134/112 03/27/17 22:04 Vital Signs Reviewed: Yes Appearance: Positive: Well-Appearing, No Pain Distress Skin: Positive: Warm, Skin Color Reflects Adequate Perfusion Head/Face: Positive: Normal Head/Face Inspection Eyes: Positive: Normal ENT: Positive: Normal ENT inspection Neck: Positive: Supple, Nontender Respiratory/Lung Sounds: Positive: Breath Sounds Present, Wheezes - All lung fl[place], Other - Crackles at the bases Cardiovascular: Positive: RRR Abdomen Description: Positive: Nontender, Soft Bowel Sounds: Positive: Present Musculoskeletal: Positive: Edema Left - Mild pitting edema @ L ankle Neurological: Positive: Normal Psychiatric: Positive: Normal, Affect/Mood Appropriate - Callie Coma Scale Coma Scale Total: 15 Diagnostics - Vital Signs Vital Signs Temp Pulse Resp BP Pulse Ox 03/27/17 22:16 98.5 F 83 35 148/135 96 03/27/17 22:15 98.5 F 85 28 98 03/27/17 22:08 86 30 167/140 95 03/27/17 22:06 86 30 96 03/27/17 22:04 134/112 - Laboratory Lab Results: Lab Results 03/27/17 Range/Units 22:10 WBC 9.9 (3.5-10.8) 10^3/ul RBC 4.49 (4.0-5.4) 10^6/ul Hgb 12.3 (12.0-16.0) g/dl Hct 39 (35-47) % MCV 87 (80-97) fL MCH 28 (27-31) pg MCHC 32 (31-36) g/dl RDW 17 H (10.5-15) % Plt Count 201 (150-450) 10^3/ul MPV 9 (7.4-10.4) um3 Neut % (Auto) 77.1 (38-83) % Lymph % (Auto) 15.0 L (25-47) % [place] % (Auto) 5.1 (1-9) % Eos % (Auto) 2.3 (0-6) % Baso % (Auto) 0.5 (0-2) % Absolute Neuts (auto) 7.7 (1.5-7.7) 10^3/ul Absolute Lymphs (auto) 1.5 (1.0-4.8) 10^3/ul Absolute Monos (auto) 0.5 (0-0.8) 10^3/ul Absolute Eos (auto) 0.2 (0-0.6) 10^3/ul Absolute Basos (auto) 0 (0-0.2) 10^3/ul Absolute Nucleated RBC 0 10^3/ul Nucleated RBC % 0 Result Diagrams: 03/27/17 22:10 03/27/17 22:10 Lab Statement: Any lab studies that have been ordered have been reviewed, and results considered in the medical decision making process. - Radiology CXR Xray Interpretation: Positive (See Comments) - COPD Radiology Interpretation Completed By: ED Physician - Dr. Edwin Tang - EKG 1 EKG Rhythm: Sinus Rhythm - @ 84 bpm EKG Interpretation: 23:01 Course/Dx - Course Course Of Treatment: Ms. Camejo reports C/O SOB that has been gradually increasing. She is using her nebulizers as prescribed. She is getting solumedrol and Nebs here and I expect that she will turn around and go home. - Diagnoses Provider Diagnoses: COPD exacerbation Discharge - Discharge Plan Condition: Stable Disposition: OTHER Discharge Disposition Comment: Sign out to Dr. Rendon Referrals: Tom Schrader MD [Primary Care Provider] - The documentation as recorded by the Gisela kiran Edward accurately reflects the service I personally performed and the decisions made by , Elliott Tang MD.
--- NOTE | 2017-03-28 06:15 | ED ---
Ramesh Laboy Rebecca, scribed for Graham Rendon MD on 03/28/17 at 0143 . Progress - Progress Note Progress Note: Pt signed out from Dr. Tang, pending disposition, awaiting repeat troponin. Repeat troponin at 0527 is 0.00. Re-Evaluation - Re-Evaluation First Eval Re-Evaluation Time: 01:37 Change: Improved Comment: 02 sat is about 96%. She is sleeping comfortably, arouses briefly to voice. Second Eval Re-Evaluation Time: 06:11 Change: Improved Comment: Discussed repeat troponin test results and D/C plan with the pt. She expressed a desire to be D/C to home. Course/Dx - Course Course Of Treatment: NO CRITICAL CARE TIME. IMPROVED IN THE ED. WISHES TO GO HOME. - Diagnoses Provider Diagnoses: COPD exacerbation, Bronchitis The documentation as recorded by the celiaibRamesh pleitez Rebecca accurately reflects the service I personally performed and the decisions made by , Graham Rendon MD.
[2017-03-28 06:24] VITALS: BP 120/59
--- NOTE | 2017-03-28 07:22 | RAD ---
INDICATION: Short of breath COMPARISON: February 17, 2017 TECHNIQUE: An AP portable view obtained at 2245 hours is submitted. FINDINGS: Bones/Soft Tissues: There are no acute bony findings. Cardiomediastinal: The cardiomediastinal silhouette is normal. Lungs: There are no infiltrates. Pleura: There are no pleural effusions. Other: None IMPRESSION: NO ACTIVE DISEASE
== END 2017-03-28 06:23 | disposition home or self-care (01) ==
LOC: ED 21:59
DX: J44.1 Chronic obstructive pulmonary disease with (acute) exacerbation (principal); R60.0 Localized edema; Z86.718 Personal history of other venous thrombosis and embolism; Z79.01 Long term (current) use of anticoagulants; I25.119 Atherosclerotic heart disease of native coronary artery with unspecified angina pectoris; I10 Essential (primary) hypertension; E78.00 Pure hypercholesterolemia, unspecified; F41.9 Anxiety disorder, unspecified; F32.9 Major depressive disorder, single episode, unspecified; Z88.1 Allergy status to other antibiotic agents; Z88.0 Allergy status to penicillin; F17.210 Nicotine dependence, cigarettes, uncomplicated
CPT/HCPCS: 36415; 71010; 80053; 82550; 82553; 83605; 83690; 83735; 83880; 84443; 84484; 85025; 85610; 85730; 86140; 93005; 96374; 96375; 99284; A9270-GY; J2060; J2930

== ENCOUNTER 2017-04-08 21:42 | Emergency (ER) | payer MEDICARE, MEDICAID ==
[2017-04-08] MEDS ORDERED: Aspirin Low Dose CHEW TAB* 81 MG PO ONE (22:26)
[2017-04-08] MEDS ORDERED: NS 0.9% 1000 ML* 1,000 ML IV ONE (22:26)
[2017-04-08 23:06] LABS: Hematocrit 38 % (35-47); Hemoglobin 12.2 g/dl (12.0-16.0); Mean Corpuscular HGB Conc 32 g/dl (31-36); Mean Corpuscular Hemoglobin 28 pg (27-31); Mean Corpuscular Volume 87 fL (80-97); Mean Platelet Volume 9 um3 (7.4-10.4); Red Blood Count 4.39 10^6/ul (4.0-5.4); Red Cell Distribution Width 16 % (10.5-15)
--- NOTE | 2017-04-08 23:07 | ED ---
Rupert Laboy Alok, scribed for Cristopher Hernandes MD on 04/08/17 at 2227 . HPI Chest Pain - HPI Summary HPI Summary: 61F presents to the ED with CP accompanied by SOB since 1930 this evening which has been constant since. Pt states she has had similar CP a few month ago. Pt notes having dizziness and no appetite for the past few days. Pt notes nausea and diarrhea today. Pt denies vomiting. Pt is on 2L home O2 at night. Pt smokes 1/4 ppd. - History of Current Complaint Chief Complaint: EDChestPainROMI Time Seen by Provider: 04/08/17 22:21 Hx Obtained From: Patient Onset/Duration: Started Hours Ago, Atraumatic, Still Present Timing: Constant Initial Severity: Moderate Current Severity: Moderate Pain Intensity: 8 Pain Scale Used: 0-10 Numeric Aggravating Factor(s): Nothing Alleviating Factor(s): Nothing Associated Signs and Symptoms: Positive: Chest Pain, Dizziness, Shortness of Breath, Nausea, Other: - diarrhea. Negative: Fever, Vomiting - Additional Pertinent History Primary Care Physician: [id number] - Allergy/Home Medications Allergies/Adverse Reactions: Allergies Allergy/AdvReac Type Severity Reaction Status Date / Time Bupropion [From Wellbutrin] Allergy Severe Agitation Verified 04/09/17 02:33 Cephalosporins Allergy Severe Agitation Verified 04/09/17 02:33 Penicillins [PCN] Allergy Intermediate Hives Verified 04/09/17 02:33 Chlorpromazine AdvReac Severe Diarrhea Verified 04/09/17 02:33 Erythromycin AdvReac Intermediate Diarrhea Verified 04/09/17 02:33 Tobramycin AdvReac Intermediate Diarrhea Verified 04/09/17 02:33 PMH/Surg Hx/FS Hx/Imm Hx Endocrine/Hematology History: Reports: Hx Anticoagulant Therapy, Other Endocrine /Hematological Disorders - L leg DVT Denies: Hx Diabetes, Hx Systemic Lupus Erythematosus, Hx Thyroid Disease Cardiovascular History: Reports: Hx Angina, Hx Coronary Artery Disease, Hx Deep Vein Thrombosis, Hx Hypercholesterolemia, Hx Hypertension, Hx Peripheral Vascular Disease, Other Cardiovascular Problems/Disorders - PERIPHERAL ARTERY DISEASE; CAD; DVT Denies: Hx Congestive Heart Failure, Hx Pacemaker/ICD Respiratory History: Reports: Hx Asthma, Hx Chronic Bronchitis, Hx Chronic Obstructive Pulmonary Disease (COPD), Hx Pneumonia, Hx Seasonal Allergies, Other Respiratory Problems/Disorders - PNA Denies: Hx Cystic Fibrosis, Hx Lung Cancer, Hx Pleural Effusion, Hx Pulmonary Edema, Hx Pulmonary Embolism, Hx Sleep Apnea GI History: Reports: Hx Gall Bladder Disease - removed, Hx Gastroesophageal Reflux Disease, Hx Irritable Bowel, Other GI Disorders - hernia repair X 2 Denies: Hx Cirrhosis, Hx Crohn's Disease, Hx Diverticulosis History: Denies: Hx Dialysis, Hx Renal Disease Musculoskeletal History: Denies: Hx Arthritis, Hx Rheumatoid Arthritis, Hx Osteoporosis Sensory History: Reports: Hx Contacts or Glasses Denies: Hx Glaucoma, Hx Deafness, Hx Hearing Aid, Hx Hearing Problem Opthamlomology History: Reports: Hx Contacts or Glasses Denies: Hx Glaucoma Neurological History: Denies: Hx Headaches, Hx Seizures, Hx Transient Ischemic Attacks (TIA) Psychiatric History: Reports: Hx Anxiety, Hx Depression, Hx Inpatient Treatment , Hx Community Mental Health Tx, Hx Schizophrenia, Hx Bipolar Disorder, Hx Suicide Attempt Denies: Hx Eating Disorder, Hx Panic Disorder, Hx of Violent Episodes Against Others - Cancer History Hx Chemotherapy: No - Surgical History Surgery Procedure, Year, and Place: bilat thumb repairs, hernia repairs X 2, cholecystectomy, appendectomy Hx Anesthesia Reactions: No - Immunization History Date of Tetanus Vaccine: unknown Infectious Disease History: Denies: Hx Clostridium Difficile, Hx Hepatitis, Hx Human Immunodeficiency Virus (HIV), Hx of Known/Suspected MRSA, Hx Shingles, Hx Tuberculosis, Traveled Outside the [place] in Last 30 Days - Family History Known Family History: Positive: Other - schizophrenia, anxiety Negative: Cardiac Disease, Hypertension, Diabetes - Social History Occupation: Disabled Alcohol Use: Rare Hx Substance Use: No Substance Use Type: Reports: None Hx Tobacco Use: Yes Smoking Status (MU): Light Every Day Tobacco Smoker Type: Cigarettes Amount Used/How Often: half a pack a day Have You Smoked in the Last Year: Yes Review of Systems Negative: Fever Positive: Chest Pain Positive: Shortness Of Breath Positive: Diarrhea, Nausea. Negative: Vomiting Neurological: Other - Dizziness All Other Systems Reviewed And Are Negative: Yes Physical Exam Triage Information Reviewed: Yes Vital Signs On Initial Exam: Initial Vitals Temp Pulse Resp BP Pulse Ox 98.1 F 83 30 99/66 97 04/08/17 21:51 04/08/17 21:51 04/08/17 21:51 04/08/17 21:51 04/08/17 21:51 Vital Signs Reviewed: Yes Appearance: Positive: Well-Appearing, No Pain Distress Skin: Positive: Warm Head/Face: Positive: Normal Head/Face Inspection Eyes: Positive: CRISTIAN ENT: Positive: Hearing grossly normal Neck: Positive: Supple Respiratory/Lung Sounds: Positive: Clear to Auscultation, Breath Sounds Present Cardiovascular: Positive: RRR Abdomen Description: Positive: Nontender, Soft Bowel Sounds: Positive: Present Musculoskeletal: Positive: Strength/ROM Intact Neurological: Positive: Alert, Oriented to Person Place, Time Psychiatric: Positive: Affect/Mood Appropriate Diagnostics - Vital Signs Vital Signs Temp Pulse Resp BP Pulse Ox 04/08/17 21:51 98.1 F 83 30 99/66 97 - Laboratory Result Diagrams: 04/08/17 22:58 04/08/17 22:58 Lab Statement: Any lab studies that have been ordered have been reviewed, and results considered in the medical decision making process. - Radiology CXR Xray Interpretation: No Acute Changes Radiology Interpretation Completed By: ED Physician - Dr. Hernandes - EKG 2225 Cardiac Rate: NL - 78 bpm EKG Rhythm: Sinus Rhythm Re-Evaluation - Re-Evaluation First Eval Change: Improved - pt remains pain free, results d/w pt Chest Pain Course/Dx - Diagnoses Provider Diagnoses: Chest pain Discharge - Discharge Plan Condition: Stable Disposition: HOME Patient Education Materials: Chest Pain (ED) Referrals: Tom Schrader MD [Primary Care Provider] - The documentation as recorded by the Rupert kiran Alok accurately reflects the service I personally performed and the decisions made by Cecilio kaufman David, MD.
[2017-04-08 23:23] LABS: Albumin 3.5 g/dL (3.2-5.2); BUN/Creatinine Ratio 7.5 (8-20); Calcium 9.4 mg/dL (8.6-10.3); EGFR African American 79.4 (>60); EGFR Non-African American 61.7 (>60); Globulin 2.7 g/dL (2-4); Magnesium 1.7 mg/dL (1.9-2.7); Total Bilirubin 0.4 mg/dL (0.2-1.0); Total Protein 6.2 g/dL (6.4-8.9)
[2017-04-08 23:25] LABS: Troponin I 0.01 ng/mL (<0.04)
[2017-04-09 02:21] VITALS: BP 106/45
--- NOTE | 2017-04-09 07:47 | RAD ---
INDICATION: Chest pain. COMPARISON: Comparison is made with prior study from March 27, 2017. TECHNIQUE: Dual-energy PA and lateral views of the chest were obtained. FINDINGS: The heart is within normal limits in size. Mediastinal and hilar contours appear within normal limits. The lungs are clear. No pleural effusion is present. IMPRESSION: NO EVIDENCE FOR ACTIVE CARDIOPULMONARY DISEASE.
== END 2017-04-09 02:30 | disposition home or self-care (01) ==
LOC: ED 21:42
DX: R07.9 Chest pain, unspecified (principal); R42 Dizziness and giddiness; R06.02 Shortness of breath; R11.0 Nausea; R19.7 Diarrhea, unspecified
CPT/HCPCS: 36415; 71020; 80053; 83605; 83690; 83735; 84484; 85025; 85610; 93005; 96360; 99282; A9270-GY

== ENCOUNTER → 2017-04-15 00:05 | Emergency (ER) | payer MEDICARE, MEDICAID ==
[~2017-04-15 00:05] MED LIST changes: +Albuterol/Ipratropium NEB.SOL* Albuterol 2.5 MG/Ipratropium 0.5 MG 3 ML INH ONE; +Aspirin Low Dose CHEW TAB* 81 MG PO ONE; -HYDROmorphone* 1 MG/ML 1 ML SYR IV ONE; -Ketorolac INJ* 30 MG/ML 1 ML VIAL IV ONE; +Levofloxacin 750 MG IVPREMIX(* 750 MG/150 ML BAG IVPB ONE; +Levofloxacin TAB* 250 MG PO ONE; -NS 0.9% 1000 ML* 1,000 ML IV ONE; -Ondansetron INJ* 2 MG/ML VIAL IV ONE; -diPHENhydraMINE IV* 50 MG/ML 1 ml VIAL (BENADRYL) IV ONE; +methylPREDNISolone 125 MG* 2 ML VIAL IV ONE; +predniSONE TAB* 20 MG PO ONE
[2017-04-15 01:08] LABS: Hematocrit 37 % (35-47); Hemoglobin 11.8 g/dl (12.0-16.0); Mean Corpuscular HGB Conc 32 g/dl (31-36); Mean Corpuscular Hemoglobin 28 pg (27-31); Mean Corpuscular Volume 86 fL (80-97); Mean Platelet Volume 9 um3 (7.4-10.4); Red Blood Count 4.23 10^6/ul (4.0-5.4); Red Cell Distribution Width 16 % (10.5-15); White Blood Count 8.9 10^3/ul (3.5-10.8)
[2017-04-15 01:23] LABS: ALT 6 U/L (7-52); Albumin 3.2 g/dL (3.2-5.2); Alkaline Phosphatase 82 U/L (34-104); BUN/Creatinine Ratio 11.2 (8-20); Blood Urea Nitrogen 10 mg/dL (6-24); CO2 Carbon Dioxide 28 mmol/L (22-32); Chloride 105 mmol/L (101-111); EGFR African American 83.5 (>60); EGFR Non-African American 64.9 (>60); Globulin 2.6 g/dL (2-4); Glucose 87 mg/dL (70-100); Sodium 136 mmol/L (133-145); Total Protein 5.8 g/dL (6.4-8.9)
[2017-04-15 01:26] LABS: Troponin I 0.01 ng/mL (<0.04)
[2017-04-15 01:43] LABS: Anion Gap 3 mmol/L (2-11)
[2017-04-15 05:28] LABS: Troponin I 0.01 ng/mL (<0.04)
[2017-04-15 06:03] VITALS: BP 115/53
--- NOTE | 2017-04-15 06:03 | ED ---
I, Mu,Rayo, scribed for Sania Brumfield MD on 04/15/17 at 0102 . HPI Chest Pain - HPI Summary HPI Summary: This 61 y/o female presents to ED for gradually worsening chest tightness and SOB since 2-3 days ago. Pt had trouble ambulating to bathroom due to SOB at 2100 PM. Productive cough. Negative fever. PMHx is positive for COPD, HTN, and DVT at LLE with stent in legs. She expresses concern over possible bronchitis. Pt lives alone. Pt is current smoker and nondrinker. FHx is positive for cardiac dz to brother. - History of Current Complaint Chief Complaint: EDChestPainROMI Time Seen by Provider: 04/15/17 00:25 Hx Obtained From: Patient, Medical Records Onset/Duration: Started Days Ago, Atraumatic, Still Present Timing: Constant Pain Intensity: 8 Pain Scale Used: 0-10 Numeric Chest Pain Location: Diffuse Character: Tightness - Additional Pertinent History Primary Care Physician: MANDY - Allergy/Home Medications Allergies/Adverse Reactions: Allergies Allergy/AdvReac Type Severity Reaction Status Date / Time Bupropion [From Wellbutrin] Allergy Severe Agitation Verified 04/09/17 02:33 Cephalosporins Allergy Severe Agitation Verified 04/09/17 02:33 Penicillins [PCN] Allergy Intermediate Hives Verified 04/09/17 02:33 Chlorpromazine AdvReac Severe Diarrhea Verified 04/09/17 02:33 Erythromycin AdvReac Intermediate Diarrhea Verified 04/09/17 02:33 Tobramycin AdvReac Intermediate Diarrhea Verified 04/09/17 02:33 PMH/Surg Hx/FS Hx/Imm Hx Endocrine/Hematology History: Reports: Hx Anticoagulant Therapy, Other Endocrine /Hematological Disorders - L leg DVT Denies: Hx Diabetes, Hx Systemic Lupus Erythematosus, Hx Thyroid Disease Cardiovascular History: Reports: Hx Angina, Hx Coronary Artery Disease, Hx Deep Vein Thrombosis, Hx Hypercholesterolemia, Hx Hypertension, Hx Peripheral Vascular Disease, Other Cardiovascular Problems/Disorders - PERIPHERAL ARTERY DISEASE; CAD; DVT Denies: Hx Congestive Heart Failure, Hx Pacemaker/ICD Respiratory History: Reports: Hx Asthma, Hx Chronic Bronchitis, Hx Chronic Obstructive Pulmonary Disease (COPD), Hx Pneumonia, Hx Seasonal Allergies, Other Respiratory Problems/Disorders - PNA Denies: Hx Cystic Fibrosis, Hx Lung Cancer, Hx Pleural Effusion, Hx Pulmonary Edema, Hx Pulmonary Embolism, Hx Sleep Apnea GI History: Reports: Hx Gall Bladder Disease - removed, Hx Gastroesophageal Reflux Disease, Hx Irritable Bowel, Other GI Disorders - hernia repair X 2 Denies: Hx Cirrhosis, Hx Crohn's Disease, Hx Diverticulosis History: Denies: Hx Dialysis, Hx Renal Disease Musculoskeletal History: Denies: Hx Arthritis, Hx Rheumatoid Arthritis, Hx Osteoporosis Sensory History: Reports: Hx Contacts or Glasses Denies: Hx Glaucoma, Hx Deafness, Hx Hearing Aid, Hx Hearing Problem Opthamlomology History: Reports: Hx Contacts or Glasses Denies: Hx Glaucoma Neurological History: Denies: Hx Headaches, Hx Seizures, Hx Transient Ischemic Attacks (TIA) Psychiatric History: Reports: Hx Anxiety, Hx Depression, Hx Inpatient Treatment , Hx Community Mental Health Tx, Hx Schizophrenia, Hx Bipolar Disorder, Hx Suicide Attempt Denies: Hx Eating Disorder, Hx Panic Disorder, Hx of Violent Episodes Against Others - Cancer History Hx Chemotherapy: No - Surgical History Surgery Procedure, Year, and Place: bilat thumb repairs, hernia repairs X 2, cholecystectomy, appendectomy Hx Anesthesia Reactions: No - Immunization History Date of Tetanus Vaccine: unknown Infectious Disease History: No Infectious Disease History: Denies: Hx Clostridium Difficile, Hx Hepatitis, Hx Human Immunodeficiency Virus (HIV), Hx of Known/Suspected MRSA, Hx Shingles, Hx Tuberculosis, Traveled Outside the [place] in Last 30 Days - Family History Known Family History: Positive: Other - schizophrenia, anxiety Negative: Cardiac Disease, Hypertension, Diabetes Family History: Negative HTN/Cardiac/DM per EMR - Social History Alcohol Use: Rare Hx Substance Use: No Substance Use Type: Reports: None Hx Tobacco Use: Yes Smoking Status (MU): Light Every Day Tobacco Smoker Type: Cigarettes Amount Used/How Often: half a pack a day Have You Smoked in the Last Year: Yes Review of Systems Negative: Fever Positive: Chest Pain Positive: Shortness Of Breath All Other Systems Reviewed And Are Negative: Yes Physical Exam Triage Information Reviewed: Yes Vital Signs On Initial Exam: Initial Vitals Temp Pulse Resp BP Pulse Ox 97.6 F 81 22 111/43 95 04/15/17 00:23 04/15/17 00:23 04/15/17 00:23 04/15/17 00:23 04/15/17 00:23 Vital Signs Reviewed: Yes Appearance: Positive: Well-Appearing, No Pain Distress Skin: Positive: Warm, Skin Color Reflects Adequate Perfusion, Dry Head/Face: Positive: Normal Head/Face Inspection Eyes: Positive: EOMI, CRISTIAN ENT: Positive: Normal ENT inspection Neck: Positive: Supple, Nontender Cardiovascular: Positive: RRR, Pulses are Symmetrical in both Upper and Lower Extremities. Negative: Murmur, Rub, Other - gallops Abdomen Description: Positive: Nontender, Soft Musculoskeletal: Positive: Strength/ROM Intact Neurological: Positive: Sensory/Motor Intact, Alert, Oriented to Person Place, Time Psychiatric: Positive: Affect/Mood Appropriate AVPU Assessment: Alert - [place] Coma Scale Coma Scale Total: 15 Diagnostics - Vital Signs Vital Signs Temp Pulse Resp BP Pulse Ox 04/15/17 00:23 97.6 F 81 22 111/43 95 - Laboratory Lab Results: Lab Results 04/15/17 04/15/17 04/15/17 Range/Units 00:53 00:53 00:53 WBC 8.9 (3.5-10.8) 10^3/ul RBC 4.23 (4.0-5.4) 10^6/ul Hgb 11.8 L (12.0-16.0) g/dl Hct 37 (35-47) % MCV 86 (80-97) fL MCH 28 (27-31) pg MCHC 32 (31-36) g/dl RDW 16 H (10.5-15) % Plt Count 159 (150-450) 10^3/ul MPV 9 (7.4-10.4) um3 Neut % (Auto) 66.8 (38-83) % Lymph % (Auto) 22.3 L (25-47) % [place] % (Auto) 5.6 (1-9) % Eos % (Auto) 4.3 (0-6) % Baso % (Auto) 1.0 (0-2) % Absolute Neuts (auto) 5.9 (1.5-7.7) 10^3/ul Absolute Lymphs (auto) 2.0 (1.0-4.8) 10^3/ul Absolute Monos (auto) 0.5 (0-0.8) 10^3/ul Absolute Eos (auto) 0.4 (0-0.6) 10^3/ul Absolute Basos (auto) 0.1 (0-0.2) 10^3/ul Absolute Nucleated RBC 0 10^3/ul Nucleated RBC % 0 Sodium 136 (133-145) mmol/L Potassium TNP Chloride 105 (101-111) mmol/L Carbon Dioxide 28 (22-32) mmol/L Anion Gap 3 (2-11) mmol/L BUN 10 (6-24) mg/dL Creatinine 0.89 (0.51-0.95) mg/dL Est GFR ( Amer) 83.5 (>60) Est GFR (Non-Af Amer) 64.9 (>60) BUN/Creatinine Ratio 11.2 (8-20) Glucose 87 (70-100) mg/dL Lactic Acid 0.5 (0.5-2.0) mmol/L Calcium 9.0 (8.6-10.3) mg/dL Total Bilirubin 0.40 (0.2-1.0) mg/dL AST TNP ALT 6 L (7-52) U/L Alkaline Phosphatase 82 (34-104) U/L Troponin I 0.01 (<0.04) ng/mL Total Protein 5.8 L (6.4-8.9) g/dL Albumin 3.2 (3.2-5.2) g/dL Globulin 2.6 (2-4) g/dL Albumin/Globulin Ratio 1.2 (1-3) 04/15/ Range/Units 03:59 WBC (3.5-10.8) 10^3/ul RBC (4.0-5.4) 10^6/ul Hgb (12.0-16.0) g/dl Hct (35-47) % MCV (80-97) fL MCH (27-31) pg MCHC (31-36) g/dl RDW (10.5-15) % Plt Count (150-450) 10^3/ul MPV (7.4-10.4) um3 Neut % (Auto) (38-83) % Lymph % (Auto) (25-47) % [place] % (Auto) (1-9) % Eos % (Auto) (0-6) % Baso % (Auto) (0-2) % Absolute Neuts (auto) (1.5-7.7) 10^3/ul Absolute Lymphs (auto) (1.0-4.8) 10^3/ul Absolute Monos (auto) (0-0.8) 10^3/ul Absolute Eos (auto) (0-0.6) 10^3/ul Absolute Basos (auto) (0-0.2) 10^3/ul Absolute Nucleated RBC 10^3/ul Nucleated RBC % Sodium (133-145) mmol/L Potassium 4.0 Chloride (101-111) mmol/L Carbon Dioxide (22-32) mmol/L Anion Gap (2-11) mmol/L BUN (6-24) mg/dL Creatinine (0.51-0.95) mg/dL Est GFR ( Amer) (>60) Est GFR (Non-Af Amer) (>60) BUN/Creatinine Ratio (8-20) Glucose (70-100) mg/dL Lactic Acid (0.5-2.0) mmol/L Calcium (8.6-10.3) mg/dL Total Bilirubin (0.2-1.0) mg/dL AST 9 L ALT (7-52) U/L Alkaline Phosphatase (34-104) U/L Troponin I 0.01 (<0.04) ng/mL Total Protein (6.4-8.9) g/dL Albumin (3.2-5.2) g/dL Globulin (2-4) g/dL Albumin/Globulin Ratio (1-3) Result Diagrams: 04/15/17 00:53 04/15/17 03:59 Lab Statement: Any lab studies that have been ordered have been reviewed, and results considered in the medical decision making process. - Radiology CXR Xray Interpretation: No Acute Changes Radiology Interpretation Completed By: ED Physician - EKG 0036 Cardiac Rate: NL EKG Rhythm: Sinus Rhythm ST Segment: Normal - 04/08/2017 EKG Comparison: No Significant Change - [id number] Chest Pain Course/Dx - Diagnoses Provider Diagnoses: COPD exacerbation, Chest pain Discharge - Discharge Plan Condition: Stable Disposition: HOME Prescriptions: Levofloxacin TAB* [Levaquin TAB*] 750 mg PO DAILY #7 tab predniSONE TAB* [Deltasone TAB*] 50 mg PO DAILY #5 tab Patient Education Materials: Chest Pain (ED), COPD (Chronic Obstructive Pulmonary Disease) (ED), Prednisone (By mouth), Levofloxacin (By mouth) Referrals: Tom Schrader MD [Primary Care Provider] - 2 Days The documentation as recorded by the scribeMu Soohyun accurately reflects the service I personally performed and the decisions made by me, Sania Brumfield MD.
--- NOTE | 2017-04-15 11:49 | RAD ---
Indication: Increased shortness of breath and chest pain. Coronary artery disease. COPD. Tobacco use. Comparison: April 08, 2017 Technique: Upright AP 0030 hours Report: Elevated lung volumes and both diffuse mild prominence of the interstitial markings and patchy rarefaction of the mid to upper lung zone interstitial markings. No focal pulmonary lesion, compelling alveolar consolidation, pleural effusion, pneumothorax. The heart, pulmonary vasculature, and mediastinal contours are unremarkable. IMPRESSION: Stigmata of obstructive lung disease. No acute pulmonary or cardiac process evident.
== END | disposition home or self-care (01) ==
LOC: ED 00:05
DX: J44.1 Chronic obstructive pulmonary disease with (acute) exacerbation (principal); R07.9 Chest pain, unspecified; R06.02 Shortness of breath; F17.210 Nicotine dependence, cigarettes, uncomplicated
CPT/HCPCS: 36415; 71010; 80053; 83605; 84484; 85025; 93005; 94640; 99284; A9270-GY; J2930; J7512

== ENCOUNTER 2017-04-25 21:23 | Emergency (ER) | payer MEDICARE, MEDICAID ==
[2017-04-25] MEDS ORDERED: methylPREDNISolone 125 MG* 2 ML VIAL IV ONE (22:51)
[2017-04-25] MEDS ORDERED: NS 0.9% 1000 ML* 1,000 ML IV SCH (23:00)
[2017-04-26 00:01] VITALS: BP 109/55
[2017-04-26 00:09] LABS: Hematocrit 38 % (35-47); Hemoglobin 12.4 g/dl (12.0-16.0); Mean Corpuscular HGB Conc 32 g/dl (31-36); Mean Corpuscular Hemoglobin 27 pg (27-31); Mean Corpuscular Volume 85 fL (80-97); Mean Platelet Volume 9 um3 (7.4-10.4); Red Blood Count 4.51 10^6/ul (4.0-5.4); Red Cell Distribution Width 16 % (10.5-15); White Blood Count 9.1 10^3/ul (3.5-10.8)
[2017-04-26 00:11] LABS: Urine Bilirubin Negative (Negative); Urine Glucose Negative (Negative); Urine Nitrite Negative (Negative)
[2017-04-26 00:24] LABS: ALT 7 U/L (7-52); Albumin 3.6 g/dL (3.2-5.2); Alkaline Phosphatase 88 U/L (34-104); BUN/Creatinine Ratio 10.4 (8-20); Blood Urea Nitrogen 11 mg/dL (6-24); C Reactive Protein 2.05 mg/L (< 5.00); CO2 Carbon Dioxide 28 mmol/L (22-32); Calcium 9.3 mg/dL (8.6-10.3); Chloride 101 mmol/L (101-111); Creatine Kinase 23 U/L (10-223); EGFR African American 68.2 (>60); EGFR Non-African American 53.1 (>60); Globulin 2.7 g/dL (2-4); Glucose 90 mg/dL (70-100); Lipase 44 U/L (11.0-82.0); Sodium 133 mmol/L (133-145); Total Protein 6.3 g/dL (6.4-8.9)
[2017-04-26 00:30] LABS: Anion Gap 4 mmol/L (2-11)
[2017-04-26 00:37] LABS: Lithium 1.14 mmol/L (0.6-1.2)
[2017-04-26] MEDS ORDERED: Levofloxacin 750 MG IVPREMIX(* 750 MG/150 ML BAG IVPB ONE (01:04)
--- NOTE | 2017-04-26 04:25 | ED ---
Chacorta Laboy Alfonso, scribed for Graham Rendon MD on 04/25/17 at 2251 . Shortness of Breath - HPI Summary HPI Summary: This patient is a 61 year old F BIBA to [facility] with a chief complaint of SOB since 1700. The patient rates the pain 0/10 in severity. Symptoms aggravated by nothing and alleviated by duoneb in the ambulance. Patient reports mid sternal CP (from [id number] with no pain radiation), and productive cough (clear phlegm) . Patient denies diaphoresis, and nausea. She is taking Coumadin. PMHx of COPD. - History of Current Complaint Chief Complaint: EDShortnessOfBreath Time Seen by Provider: 04/25/17 22:43 Hx Obtained From: Patient Onset/Duration: Sudden Onset, Lasting Hours - 1700 today, Resolved Timing: Constant Current Severity: Moderate Aggrevating Factors: Nothing Alleviating Factors: EMS Tx Associated Signs & Symptoms: Chest Pain w/Cough - Allergy/Home Medications Allergies/Adverse Reactions: Allergies Allergy/AdvReac Type Severity Reaction Status Date / Time Bupropion [From Wellbutrin] Allergy Severe Agitation Verified 04/09/17 02:33 Cephalosporins Allergy Severe Agitation Verified 04/09/17 02:33 Penicillins [PCN] Allergy Intermediate Hives Verified 04/09/17 02:33 Chlorpromazine AdvReac Severe Diarrhea Verified 04/09/17 02:33 Erythromycin AdvReac Intermediate Diarrhea Verified 04/09/17 02:33 Tobramycin AdvReac Intermediate Diarrhea Verified 04/09/17 02:33 PMH/Surg Hx/FS Hx/Imm Hx Endocrine/Hematology History: Reports: Hx Anticoagulant Therapy, Other Endocrine /Hematological Disorders - L leg DVT Denies: Hx Diabetes, Hx Systemic Lupus Erythematosus, Hx Thyroid Disease Cardiovascular History: Reports: Hx Angina, Hx Coronary Artery Disease, Hx Deep Vein Thrombosis, Hx Hypercholesterolemia, Hx Hypertension, Hx Peripheral Vascular Disease, Other Cardiovascular Problems/Disorders - PERIPHERAL ARTERY DISEASE; CAD; DVT Denies: Hx Congestive Heart Failure, Hx Pacemaker/ICD Respiratory History: Reports: Hx Asthma, Hx Chronic Bronchitis, Hx Chronic Obstructive Pulmonary Disease (COPD), Hx Pneumonia, Hx Seasonal Allergies, Other Respiratory Problems/Disorders - PNA Denies: Hx Cystic Fibrosis, Hx Lung Cancer, Hx Pleural Effusion, Hx Pulmonary Edema, Hx Pulmonary Embolism, Hx Sleep Apnea GI History: Reports: Hx Gall Bladder Disease - removed, Hx Gastroesophageal Reflux Disease, Hx Irritable Bowel, Other GI Disorders - hernia repair X 2 Denies: Hx Cirrhosis, Hx Crohn's Disease, Hx Diverticulosis History: Denies: Hx Dialysis, Hx Renal Disease Musculoskeletal History: Denies: Hx Arthritis, Hx Rheumatoid Arthritis, Hx Osteoporosis Sensory History: Reports: Hx Contacts or Glasses Denies: Hx Glaucoma, Hx Deafness, Hx Hearing Aid, Hx Hearing Problem Opthamlomology History: Reports: Hx Contacts or Glasses Denies: Hx Glaucoma Neurological History: Denies: Hx Headaches, Hx Seizures, Hx Transient Ischemic Attacks (TIA) Psychiatric History: Reports: Hx Anxiety, Hx Depression, Hx Inpatient Treatment , Hx Community Mental Health Tx, Hx Schizophrenia, Hx Bipolar Disorder, Hx Suicide Attempt Denies: Hx Eating Disorder, Hx Panic Disorder, Hx of Violent Episodes Against Others - Cancer History Hx Chemotherapy: No - Surgical History Surgery Procedure, Year, and Place: bilat thumb repairs, hernia repairs X 2, cholecystectomy, appendectomy Hx Anesthesia Reactions: No - Immunization History Date of Tetanus Vaccine: UTD Date of Influenza Vaccine: UTD Infectious Disease History: No Infectious Disease History: Denies: Hx Clostridium Difficile, Hx Hepatitis, Hx Human Immunodeficiency Virus (HIV), Hx of Known/Suspected MRSA, Hx Shingles, Hx Tuberculosis, Traveled Outside the [place] in Last 30 Days - Family History Known Family History: Positive: Other - schizophrenia, anxiety Negative: Cardiac Disease, Hypertension, Diabetes - Social History Alcohol Use: Rare Hx Substance Use: No Substance Use Type: Reports: None Hx Tobacco Use: Yes Smoking Status (MU): Light Every Day Tobacco Smoker Type: Cigarettes Amount Used/How Often: half a pack a day Have You Smoked in the Last Year: Yes Review of Systems Negative: Skin Diaphoresis Positive: Chest Pain Positive: Shortness Of Breath, Cough Negative: Nausea All Other Systems Reviewed And Are Negative: Yes Physical Exam Triage Information Reviewed: Yes Vital Signs On Initial Exam: Initial Vitals Temp Pulse Resp BP Pulse Ox 97.7 F 81 20 108/55 100 04/25/17 21:56 04/25/17 21:56 04/25/17 21:56 04/25/17 21:56 04/25/17 21:56 Vital Signs Reviewed: Yes Appearance: Positive: Well-Appearing, No Pain Distress Skin: Positive: Warm, Skin Color Reflects Adequate Perfusion, Dry Head/Face: Positive: Normal Head/Face Inspection Eyes: Positive: EOMI, CRISTIAN ENT: Positive: Normal ENT inspection Neck: Positive: Supple, Nontender Respiratory/Lung Sounds: Positive: Breath Sounds Present, Rhonchi - Bilaterally Cardiovascular: Positive: RRR Abdomen Description: Positive: Nontender, Soft Bowel Sounds: Positive: Present Musculoskeletal: Positive: Normal, Strength/ROM Intact Neurological: Positive: Normal, Sensory/Motor Intact, Alert, Oriented to Person Place, Time Psychiatric: Positive: Affect/Mood Appropriate - [place] Coma Scale Coma Scale Total: 15 Diagnostics - Vital Signs Vital Signs Temp Pulse Resp BP Pulse Ox 04/25/17 21:56 97.7 F 81 22 108/55 100 - Laboratory Lab Results: Lab Results 04/25/17 04/25/17 04/25/17 Range/Units 23:45 23:45 23:45 WBC 9.1 (3.5-10.8) 10^3/ul RBC 4.51 (4.0-5.4) 10^6/ul Hgb 12.4 (12.0-16.0) g/dl Hct 38 (35-47) % MCV 85 (80-97) fL MCH 27 (27-31) pg MCHC 32 (31-36) g/dl RDW 16 H (10.5-15) % Plt Count 168 (150-450) 10^3/ul MPV 9 (7.4-10.4) um3 Neut % (Auto) 66.7 (38-83) % Lymph % (Auto) 22.5 L (25-47) % [place] % (Auto) 6.5 (1-9) % Eos % (Auto) 3.7 (0-6) % Baso % (Auto) 0.6 (0-2) % Absolute Neuts (auto) 6.1 (1.5-7.7) 10^3/ul Absolute Lymphs (auto) 2.0 (1.0-4.8) 10^3/ul Absolute Monos (auto) 0.6 (0-0.8) 10^3/ul Absolute Eos (auto) 0.3 (0-0.6) 10^3/ul Absolute Basos (auto) 0.1 (0-0.2) 10^3/ul Absolute Nucleated RBC 0 10^3/ul Nucleated RBC % 0 INR (Anticoag Therapy) 2.44 H (0.89-1.11) APTT 34.0 (26.0-36.3) seconds D-Dimer, Quantitative < 200 (Less Than 230) ng/mL Sodium 133 (133-145) mmol/L Potassium TNP Chloride 101 (101-111) mmol/L Carbon Dioxide 28 (22-32) mmol/L Anion Gap 4 (2-11) mmol/L BUN 11 (6-24) mg/dL Creatinine 1.06 H (0.51-0.95) mg/dL Est GFR ( Amer) 68.2 (>60) Est GFR (Non-Af Amer) 53.1 (>60) BUN/Creatinine Ratio 10.4 (8-20) Glucose 90 (70-100) mg/dL Lactic Acid (0.5-2.0) mmol/L Calcium 9.3 (8.6-10.3) mg/dL Total Bilirubin 0.30 (0.2-1.0) mg/dL AST TNP ALT 7 (7-52) U/L Alkaline Phosphatase 88 (34-104) U/L Total Creatine Kinase 23 (10-223) U/L CK-MB (CK-2) 1.9 (0.6-6.3) ng/mL Troponin I 0.00 (<0.04) ng/mL C-Reactive Protein 2.05 (< 5.00) mg/L Total Protein 6.3 L (6.4-8.9) g/dL Albumin 3.6 (3.2-5.2) g/dL Globulin 2.7 (2-4) g/dL Albumin/Globulin Ratio 1.3 (1-3) Lipase 44 (11.0-82.0) U/L Urine Color Urine Appearance Urine pH (5-9) Ur Specific [place] (1.010-1.030) Urine Protein (Negative) Urine Ketones (Negative) Urine Blood (Negative) Urine Nitrate (Negative) Urine Bilirubin (Negative) Urine Urobilinogen (Negative) Ur Leukocyte Esterase (Negative) Urine Glucose (Negative) [place] 1.14 (0.6-1.2) mmol/L 04/25/17 04/25/17 04/26/17 Range/Units 23:45 23:45 01:25 WBC (3.5-10.8) 10^3/ul RBC (4.0-5.4) 10^6/ul Hgb (12.0-16.0) g/dl Hct (35-47) % MCV (80-97) fL MCH (27-31) pg MCHC (31-36) g/dl RDW (10.5-15) % Plt Count (150-450) 10^3/ul MPV (7.4-10.4) um3 Neut % (Auto) (38-83) % Lymph % (Auto) (25-47) % [place] % (Auto) (1-9) % Eos % (Auto) (0-6) % Baso % (Auto) (0-2) % Absolute Neuts (auto) (1.5-7.7) 10^3/ul Absolute Lymphs (auto) (1.0-4.8) 10^3/ul Absolute Monos (auto) (0-0.8) 10^3/ul Absolute Eos (auto) (0-0.6) 10^3/ul Absolute Basos (auto) (0-0.2) 10^3/ul Absolute Nucleated RBC 10^3/ul Nucleated RBC % INR (Anticoag Therapy) (0.89-1.11) APTT (26.0-36.3) seconds D-Dimer, Quantitative (Less Than 230) ng/mL Sodium (133-145) mmol/L Potassium 3.7 Chloride (101-111) mmol/L Carbon Dioxide (22-32) mmol/L Anion Gap (2-11) mmol/L BUN (6-24) mg/dL Creatinine (0.51-0.95) mg/dL Est GFR ( Amer) (>60) Est GFR (Non-Af Amer) (>60) BUN/Creatinine Ratio (8-20) Glucose (70-100) mg/dL Lactic Acid 0.8 (0.5-2.0) mmol/L Calcium (8.6-10.3) mg/dL Total Bilirubin (0.2-1.0) mg/dL AST 9 L ALT (7-52) U/L Alkaline Phosphatase (34-104) U/L Total Creatine Kinase (10-223) U/L CK-MB (CK-2) (0.6-6.3) ng/mL Troponin I 0.00 (<0.04) ng/mL C-Reactive Protein (< 5.00) mg/L Total Protein (6.4-8.9) g/dL Albumin (3.2-5.2) g/dL Globulin (2-4) g/dL Albumin/Globulin Ratio (1-3) Lipase (11.0-82.0) U/L Urine Color Straw Urine Appearance Clear Urine pH 6.0 (5-9) Ur Specific [place] 1.002 L (1.010-1.030) Urine Protein Negative (Negative) Urine Ketones Negative (Negative) Urine Blood Negative (Negative) Urine Nitrate Negative (Negative) Urine Bilirubin Negative (Negative) Urine Urobilinogen Negative (Negative) Ur Leukocyte Esterase Negative (Negative) Urine Glucose Negative (Negative) [place] (0.6-1.2) mmol/L Result Diagrams: 04/25/17 23:45 04/26/17 01:25 Lab Statement: Any lab studies that have been ordered have been reviewed, and results considered in the medical decision making process. - Radiology CXR Radiology Interpretation Completed By: Radiologist - Infiltrate in right lower lobe - EKG 2303 Cardiac Rate: NL - BPM 76 EKG Rhythm: Sinus Rhythm EKG Interpretation: mm ST elevation in V1-2. Q-wave in inferior leads. No reciprocal changes. Course/Dx - Course Course Of Treatment: IMPROVED IN ED. DISCUSSED ADMISSION WITH PATIENT. SHE PREFERS TO GO HOME. NO CHEST PAIN IN ED. - Diagnoses Provider Diagnoses: Pneumonia, COPD (chronic obstructive pulmonary disease), Chest pain Discharge - Discharge Plan Condition: Stable Disposition: HOME Prescriptions: Levofloxacin TAB* [Levaquin TAB*] 500 mg PO DAILY #9 tab predniSONE TAB* [Deltasone TAB*] 40 mg PO DAILY #10 tab Patient Education Materials: Pneumonia (ED), COPD (Chronic Obstructive Pulmonary Disease) (ED), Chest Pain (ED) Referrals: Tom Schrader MD [Primary Care Provider] - Additional Instructions: FOLLOW UP WITH YOUR DOCTOR. RETURN TO THE EMERGENCY DEPARTMENT FOR ANY WORSENING OF YOUR CONDITION; CHEST PAIN, SHORTNESS OF BREATH, YOU FEEL ILL OR QUESTIONS OR CONCERNS. The documentation as recorded by the Chacorta kiran Alfonso accurately reflects the service I personally performed and the decisions made by , Graham Rendon MD.
--- NOTE | 2017-04-26 07:36 | RAD ---
HISTORY: Chest pain, shortness of breath COMPARISONS: April 14, 2017 VIEWS:1: Single frontal portable view of the chest at 10:55 PM FINDINGS: LINES AND TUBES: None. CARDIOMEDIASTINAL SILHOUETTE: The cardiomediastinal silhouette is normal for portable technique. PLEURA: The costophrenic angles are sharp. No pleural abnormalities are noted. LUNG PARENCHYMA: There is hyperinflation. ABDOMEN: The upper abdomen is clear. There is no subphrenic gas. BONES AND SOFT TISSUES: No bone or soft tissue abnormalities are noted. IMPRESSION: NO ACTIVE CARDIOPULMONARY DISEASE.
== END 2017-04-26 02:45 | disposition home or self-care (01) ==
LOC: ED 21:23
DX: M79.604 Pain in right leg (principal); R60.0 Localized edema; M71.20 Synovial cyst of popliteal space [Baker], unspecified knee
CPT/HCPCS: 36415; 71010; 80053; 80178; 81003; 82550; 82553; 83605; 83690; 83880; 84484; 85025; 85379; 85610; 85730; 86140; 93005; 99282; J2930

== ENCOUNTER 2017-04-30 19:12 | Emergency (ER) | payer MEDICARE, MEDICAID ==
[2017-04-30 20:06] LABS: Hematocrit 37 % (35-47); Hemoglobin 12.1 g/dl (12.0-16.0); Mean Corpuscular HGB Conc 33 g/dl (31-36); Mean Corpuscular Hemoglobin 27 pg (27-31); Mean Corpuscular Volume 84 fL (80-97); Mean Platelet Volume 9 um3 (7.4-10.4); Red Blood Count 4.42 10^6/ul (4.0-5.4); Red Cell Distribution Width 16 % (10.5-15); White Blood Count 9.8 10^3/ul (3.5-10.8)
--- NOTE | 2017-04-30 20:12 | RAD ---
INDICATION: Shortness of breath. COMPARISON: Comparison is made with a prior chest x-ray study from April 25, 2017. TECHNIQUE: A portable view of the chest was obtained. FINDINGS: Cardiac and mediastinal contours appear to be within normal limits. The lungs are clear. No pleural effusion is seen. IMPRESSION: NO EVIDENCE FOR ACUTE DISEASE.
[2017-04-30] MEDS ORDERED: methylPREDNISolone 125 MG* 2 ML VIAL IV ONE (20:15)
[2017-04-30] MEDS ORDERED: Albuterol/Ipratropium NEB.SOL* Albuterol 2.5 MG/Ipratropium 0.5 MG 3 ML INH ONE ×2 (20:15→20:16)
[2017-04-30 20:20] LABS: Albumin 3.3 g/dL (3.2-5.2); BUN/Creatinine Ratio 15.7 (8-20); Calcium 9.2 mg/dL (8.6-10.3); EGFR African American 71.3 (>60); EGFR Non-African American 55.5 (>60); Globulin 2.2 g/dL (2-4); Potassium 4.3 mmol/L (3.5-5.0); Total Bilirubin 0.2 mg/dL (0.2-1.0); Total Protein 5.5 g/dL (6.4-8.9)
--- NOTE | 2017-04-30 20:21 | ED ---
Chacorta Laboy Alfonso, scribed for Nayely Gold MD on 04/30/17 at 2020 . HPI Chest Pain - HPI Summary HPI Summary: This patient is a 61 year old F BIBA to [facility] with a chief complaint of shorntess of breath, cough and development of CP today. Pt was given . Pt states was given duoneb by ES which has helped. Pt states has a h/o COPD and this states similar to previous episodes. Pt was recently placed on abx and prednisone by her pcp - completed pred yesterday. States was feeling better until today. Pt with yellow sputum. Pt uses 2L [place] O2 at night at home. PMHx of ~COPD, HTN, "stents in legs", blood clot to left lower leg, emphysema, asthma, seizure, and albuterol at home. Denies substance use and PMHx of [place]. Pt smokes 1 pack per week. Patients medication reviewed this visit. - History of Current Complaint Chief Complaint: EDChestPainROMI Time Seen by Provider: 04/30/17 19:41 Hx Obtained From: Patient Onset/Duration: Started Hours Ago - 2.5 hours ago, Still Present Timing: Constant Initial Severity: Severe - 9/10 Current Severity: Moderate - 4/10 Pain Intensity: 4 Pain Scale Used: 0-10 Numeric Character: Cough, Productive Aggravating Factor(s): Position - Laying flat Alleviating Factor(s): NTG 123 Associated Signs and Symptoms: Positive: Shortness of Breath, Productive Cough - Additional Pertinent History Primary Care Physician: MANDY - Allergy/Home Medications Allergies/Adverse Reactions: Allergies Allergy/AdvReac Type Severity Reaction Status Date / Time Bupropion [From Wellbutrin] Allergy Severe Agitation Verified 05/01/17 20:17 Cephalosporins Allergy Severe Agitation Verified 05/01/17 20:17 Penicillins [PCN] Allergy Intermediate Hives Verified 05/01/17 20:17 Chlorpromazine AdvReac Severe Diarrhea Verified 05/01/17 20:17 Erythromycin AdvReac Intermediate Diarrhea Verified 05/01/17 20:17 Tobramycin AdvReac Intermediate Diarrhea Verified 05/01/17 20:17 PMH/Surg Hx/FS Hx/Imm Hx Previously Healthy: No Endocrine/Hematology History: Reports: Hx Anticoagulant Therapy, Other Endocrine /Hematological Disorders - L leg DVT Denies: Hx Diabetes, Hx Systemic Lupus Erythematosus, Hx Thyroid Disease Cardiovascular History: Reports: Hx Angina, Hx Coronary Artery Disease, Hx Deep Vein Thrombosis, Hx Hypercholesterolemia, Hx Hypertension, Hx Peripheral Vascular Disease, Other Cardiovascular Problems/Disorders - PERIPHERAL ARTERY DISEASE; CAD; DVT Denies: Hx Congestive Heart Failure, Hx Pacemaker/ICD Respiratory History: Reports: Hx Asthma, Hx Chronic Bronchitis, Hx Chronic Obstructive Pulmonary Disease (COPD), Hx Pneumonia, Hx Seasonal Allergies, Other Respiratory Problems/Disorders - PNA Denies: Hx Cystic Fibrosis, Hx Lung Cancer, Hx Pleural Effusion, Hx Pulmonary Edema, Hx Pulmonary Embolism, Hx Sleep Apnea GI History: Reports: Hx Gall Bladder Disease - removed, Hx Gastroesophageal Reflux Disease, Hx Irritable Bowel, Other GI Disorders - hernia repair X 2 Denies: Hx Cirrhosis, Hx Crohn's Disease, Hx Diverticulosis History: Denies: Hx Dialysis, Hx Renal Disease Musculoskeletal History: Denies: Hx Arthritis, Hx Rheumatoid Arthritis, Hx Osteoporosis Sensory History: Reports: Hx Contacts or Glasses Denies: Hx Glaucoma, Hx Deafness, Hx Hearing Aid, Hx Hearing Problem Opthamlomology History: Reports: Hx Contacts or Glasses Denies: Hx Glaucoma Neurological History: Denies: Hx Headaches, Hx Seizures, Hx Transient Ischemic Attacks (TIA) Psychiatric History: Reports: Hx Anxiety, Hx Depression, Hx Inpatient Treatment , Hx Community Mental Health Tx, Hx Schizophrenia, Hx Bipolar Disorder, Hx Suicide Attempt Denies: Hx Eating Disorder, Hx Panic Disorder, Hx of Violent Episodes Against Others - Cancer History Hx Chemotherapy: No - Surgical History Surgery Procedure, Year, and Place: bilat thumb repairs, hernia repairs X 2, cholecystectomy, appendectomy Hx Anesthesia Reactions: No - Immunization History Date of Tetanus Vaccine: UTD Date of Influenza Vaccine: UTD Infectious Disease History: No Infectious Disease History: Denies: Hx Clostridium Difficile, Hx Hepatitis, Hx Human Immunodeficiency Virus (HIV), Hx of Known/Suspected MRSA, Hx Shingles, Hx Tuberculosis, Traveled Outside the [place] in Last 30 Days - Family History Known Family History: Positive: None, Cardiac Disease - [place], Other - schizophrenia, anxiety Negative: Hypertension, Diabetes Family History: Negative HTN/Cardiac/DM per EMR - Social History Alcohol Use: Rare Hx Substance Use: No Substance Use Type: Reports: None Hx Tobacco Use: Yes Smoking Status (MU): Heavy Every Day Tobacco Smoker Type: Cigarettes Amount Used/How Often: half a pack a day Have You Smoked in the Last Year: Yes Review of Systems Constitutional: Negative Eyes: Negative ENT: Negative Positive: Chest Pain - worse with cough Positive: Shortness Of Breath, Cough - Productive cough Gastrointestinal: Negative Genitourinary: Negative Musculoskeletal: Negative Skin: Negative Neurological: Negative Psychological: Normal All Other Systems Reviewed And Are Negative: Yes Physical Exam Triage Information Reviewed: Yes Vital Signs On Initial Exam: Initial Vitals Temp Pulse Resp BP Pulse Ox 98.3 F 95 32 145/61 94 04/30/17 19:28 04/30/17 19:28 04/30/17 19:28 04/30/17 19:28 04/30/17 19:28 Vital Signs Reviewed: Yes Appearance: Positive: Well-Appearing, Well-Nourished Skin: Positive: Warm, Skin Color Reflects Adequate Perfusion, Dry Head/Face: Positive: Normal Head/Face Inspection Eyes: Positive: Normal, EOMI ENT: Positive: Normal ENT inspection, Pharynx normal Neck: Positive: Supple, Nontender, No Lymphadenopathy Respiratory/Lung Sounds: Positive: Wheezes, Other - Pt with scatterd diffuses wheeze, mild accessory muscle use, speaking full sentences Cardiovascular: Positive: Normal, RRR, Other - chest wall pain with direct palpation and ROM upper ext Abdomen Description: Positive: Nontender, No Organomegaly, Soft Bowel Sounds: Positive: Present Musculoskeletal: Positive: Normal Neurological: Positive: Normal, Sensory/Motor Intact, Alert, Oriented to Person Place, Time Psychiatric: Positive: Normal AVPU Assessment: Alert - [place] Coma Scale Best Eye Response: 4 - Spontaneous Best Motor Response: 6 - Obeys Commands Best Verbal Response: 5 - Oriented Coma Scale Total: 15 Diagnostics - Vital Signs Vital Signs Temp Pulse Resp BP Pulse Ox 04/30/17 19:31 98.3 F 95 32 145/63 94 04/30/17 19:28 98.3 F 95 32 145/61 94 - Laboratory Lab Results: Lab Results 04/30/17 Range/Units 19:25 WBC 9.8 (3.5-10.8) 10^3/ul RBC 4.42 (4.0-5.4) 10^6/ul Hgb 12.1 (12.0-16.0) g/dl Hct 37 (35-47) % MCV 84 (80-97) fL MCH 27 (27-31) pg MCHC 33 (31-36) g/dl RDW 16 H (10.5-15) % Plt Count 168 (150-450) 10^3/ul MPV 9 (7.4-10.4) um3 Neut % (Auto) 79.5 (38-83) % Lymph % (Auto) 14.9 L (25-47) % [place] % (Auto) 5.1 (1-9) % Eos % (Auto) 0.3 (0-6) % Baso % (Auto) 0.2 (0-2) % Absolute Neuts (auto) 7.8 H (1.5-7.7) 10^3/ul Absolute Lymphs (auto) 1.5 (1.0-4.8) 10^3/ul Absolute Monos (auto) 0.5 (0-0.8) 10^3/ul Absolute Eos (auto) 0 (0-0.6) 10^3/ul Absolute Basos (auto) 0 (0-0.2) 10^3/ul Absolute Nucleated RBC 0.01 10^3/ul Nucleated RBC % 0.1 Result Diagrams: 04/30/17 19:25 04/30/17 19:25 Lab Statement: Any lab studies that have been ordered have been reviewed, and results considered in the medical decision making process. - Radiology CXR Radiology Interpretation Completed By: Radiologist - NO EVIDENCE FOR ACUTE DISEASE. - EKG 1940 Cardiac Rate: NL - 95 bpm EKG Rhythm: Sinus Rhythm EKG Interpretation: NAC Re-Evaluation - Re-Evaluation First Eval Re-Evaluation Time: 21:29 Change: Improved Comment: Pt is feeling better, moving better, and is requesting PO. Chest Pain Course/Dx - Course Assessment/Plan: Pt presents with diffuse wheeze, cough and productive cough. Pt with COPD was on abx and pred - completed pred yesterday. PT with CP which is reproducible and pt states related to coughing. Will give nebs, pred, and reassess - Diagnoses Provider Diagnoses: COPD exacerbation Discharge - Discharge Plan Condition: Stable Disposition: HOME Patient Education Materials: COPD (Chronic Obstructive Pulmonary Disease) (ED) Referrals: Tom Schrader MD [Primary Care Provider] - 3 Days Additional Instructions: - finish your antibiotics as prescribed by your primary doctor - Use your albuterol every 4 hours for wheezing - Take prednisone once daily as prescribed until gone - Call your doctor tomorrow to schedule a follow-up appointment. The documentation as recorded by the Chacorta kiran Alfonso accurately reflects the service I personally performed and the decisions made by , Nayely Gold MD.
[2017-04-30 23:12] VITALS: BP 142/58
--- NOTE | 2017-05-01 04:36 | ED ---
Progress - Progress Note Progress Note: pt was signed out by Dr. Goldwith diagnosis of COPD. pt was administered and nebulizer treatments. she was able to ambulate with slight decrease in O2 saturation to 89% which increased to 92% at rest. pt did not want to stay in the hospital and wanted to go home. Diagnosis: COPD exacerbation. pt was discharged to home in stable condition. Re-Evaluation - Re-Evaluation First Eval Re-Evaluation Time: 21:29 Change: Improved Comment: Pt is feeling better, moving better, and is requesting PO. Course/Dx - Diagnoses Provider Diagnoses: COPD exacerbation
== END 2017-04-30 23:13 | disposition home or self-care (01) ==
LOC: ED 19:12
DX: J44.1 Chronic obstructive pulmonary disease with (acute) exacerbation (principal); R06.02 Shortness of breath; R05 Cough
CPT/HCPCS: 36415; 71010; 80053; 82550; 83605; 83735; 84484; 85025; 93005; 94640; 96374; 99282; A9270-GY; J2930

== ENCOUNTER 2017-05-01 17:04 | Inpatient (IN) | payer MEDICARE, MEDICAID ==
[2017-05-01 17:31] LABS: Hematocrit 40 % (35-47); Hemoglobin 12.9 g/dl (12.0-16.0); Mean Corpuscular HGB Conc 32 g/dl (31-36); Mean Corpuscular Hemoglobin 27 pg (27-31); Mean Corpuscular Volume 84 fL (80-97); Mean Platelet Volume 8 um3 (7.4-10.4); Red Cell Distribution Width 16 % (10.5-15); White Blood Count 11.7 10^3/ul (3.5-10.8)
[2017-05-01 17:47] LABS: Albumin 3.6 g/dL (3.2-5.2); BUN/Creatinine Ratio 24.8 (8-20); Calcium 9.6 mg/dL (8.6-10.3); EGFR African American 72.1 (>60); EGFR Non-African American 56.1 (>60); Globulin 2.4 g/dL (2-4); Potassium 4.4 mmol/L (3.5-5.0); Total Bilirubin 0.3 mg/dL (0.2-1.0); Troponin I 0.01 ng/mL (<0.04)
--- NOTE | 2017-05-01 18:37 | RAD ---
INDICATION: 1 1/2 hours of shortness of breath COMPARISON: Most recent chest x-ray is dated April 30, 2017 TECHNIQUE: PA and lateral views of the chest were obtained. FINDINGS: The heart and mediastinum are normal in size and contour. The lungs are grossly clear. There is no evidence of large pleural effusion. Visualized bones are normal for the patient's age. There is no radiographic evidence of free air beneath the diaphragm IMPRESSION: No radiographic evidence of acute cardiopulmonary disease.
[2017-05-01] MEDS ORDERED: Azithromycin TAB* 250 MG PO ONE (20:32)
[2017-05-01] MEDS ORDERED: Al Hydrox/Mg Hydrox/Simet LIQ* 30 ML UDC PO PRN (20:46)
[2017-05-01] MEDS ORDERED: oxyCODONE/Acetamin 5/325 MG* TAB PO PRN (20:46)
[2017-05-01] MEDS ORDERED: Albuterol 2.5 MG/3 ML NEB.SOL* (0.083%) INH PRN (20:46)
--- NOTE | 2017-05-01 22:08 | ED ---
I, Mu,Rayo, scribed for Elliott Tang MD on 05/01/17 at 1720 . HPI Chest Pain - HPI Summary HPI Summary: This 61 y/o female presents to ED for persistent mid sternal CP and SOB since last night. Pt was seen at ED last night for same complaints. Positive for productive cough with yellow sputum. PMHx is significant for COPD with home oxygen use, LLE DVT with ongoing anticoagulant therapy and s/p stents in leg, and HTN. - History of Current Complaint Chief Complaint: EDChestPainROMI Time Seen by Provider: 05/01/17 17:08 Hx Obtained From: Patient, Medical Records Onset/Duration: Started Hours Ago, Atraumatic, Still Present Timing: Constant Chest Pain Location: Diffuse Character: Cough, Productive - with yellow sputum, Dyspnea at Rest Aggravating Factor(s): Nothing Alleviating Factor(s): Nothing Associated Signs and Symptoms: Positive: Chest Pain, Shortness of Breath, Productive Cough. Negative: Fever - Additional Pertinent History Primary Care Physician: MANDY - Allergy/Home Medications Allergies/Adverse Reactions: Allergies Allergy/AdvReac Type Severity Reaction Status Date / Time Bupropion [From Wellbutrin] Allergy Severe Agitation Verified 05/01/17 20:17 Cephalosporins Allergy Severe Agitation Verified 05/01/17 20:17 Penicillins [PCN] Allergy Intermediate Hives Verified 05/01/17 20:17 Chlorpromazine AdvReac Severe Diarrhea Verified 05/01/17 20:17 Erythromycin AdvReac Intermediate Diarrhea Verified 05/01/17 20:17 Tobramycin AdvReac Intermediate Diarrhea Verified 05/01/17 20:17 PMH/Surg Hx/FS Hx/Imm Hx Endocrine/Hematology History: Reports: Hx Anticoagulant Therapy, Other Endocrine /Hematological Disorders - L leg DVT Denies: Hx Diabetes, Hx Systemic Lupus Erythematosus, Hx Thyroid Disease Cardiovascular History: Reports: Hx Angina, Hx Coronary Artery Disease, Hx Deep Vein Thrombosis, Hx Hypercholesterolemia, Hx Hypertension, Hx Peripheral Vascular Disease, Other Cardiovascular Problems/Disorders - PERIPHERAL ARTERY DISEASE; CAD; DVT Denies: Hx Congestive Heart Failure, Hx Pacemaker/ICD Respiratory History: Reports: Hx Asthma, Hx Chronic Bronchitis, Hx Chronic Obstructive Pulmonary Disease (COPD), Hx Pneumonia, Hx Seasonal Allergies, Other Respiratory Problems/Disorders - PNA Denies: Hx Cystic Fibrosis, Hx Lung Cancer, Hx Pleural Effusion, Hx Pulmonary Edema, Hx Pulmonary Embolism, Hx Sleep Apnea GI History: Reports: Hx Gall Bladder Disease - removed, Hx Gastroesophageal Reflux Disease, Hx Irritable Bowel, Other GI Disorders - hernia repair X 2 Denies: Hx Cirrhosis, Hx Crohn's Disease, Hx Diverticulosis History: Denies: Hx Dialysis, Hx Renal Disease Musculoskeletal History: Denies: Hx Arthritis, Hx Rheumatoid Arthritis, Hx Osteoporosis Sensory History: Reports: Hx Contacts or Glasses Denies: Hx Glaucoma, Hx Deafness, Hx Hearing Aid, Hx Hearing Problem Opthamlomology History: Reports: Hx Contacts or Glasses Denies: Hx Glaucoma Neurological History: Denies: Hx Headaches, Hx Seizures, Hx Transient Ischemic Attacks (TIA) Psychiatric History: Reports: Hx Anxiety, Hx Depression, Hx Inpatient Treatment , Hx Community Mental Health Tx, Hx Schizophrenia, Hx Bipolar Disorder, Hx Suicide Attempt Denies: Hx Eating Disorder, Hx Panic Disorder, Hx of Violent Episodes Against Others - Cancer History Hx Chemotherapy: No - Surgical History Surgery Procedure, Year, and Place: bilat thumb repairs, hernia repairs X 2, cholecystectomy, appendectomy Hx Anesthesia Reactions: No - Immunization History Date of Tetanus Vaccine: UTD Date of Influenza Vaccine: UTD Infectious Disease History: Denies: Hx Clostridium Difficile, Hx Hepatitis, Hx Human Immunodeficiency Virus (HIV), Hx of Known/Suspected MRSA, Hx Shingles, Hx Tuberculosis - Family History Known Family History: Positive: Cardiac Disease - [place], Other - schizophrenia, anxiety Negative: Hypertension, Diabetes - Social History Alcohol Use: Rare Hx Substance Use: No Substance Use Type: Reports: None Hx Tobacco Use: Yes Smoking Status (MU): Heavy Every Day Tobacco Smoker Type: Cigarettes Amount Used/How Often: half a pack a day Have You Smoked in the Last Year: Yes Review of Systems Negative: Fever Positive: Chest Pain Positive: Shortness Of Breath, Cough - productive cough with yellow sputum All Other Systems Reviewed And Are Negative: Yes Physical Exam Triage Information Reviewed: Yes Vital Signs On Initial Exam: Initial Vitals Temp Pulse Resp BP Pulse Ox 97.7 F 95 18 131/70 100 05/01/17 17:07 05/01/17 17:07 05/01/17 17:07 05/01/17 17:07 05/01/17 17:07 Vital Signs Reviewed: Yes Appearance: Positive: Pain Distress - moderate respiratory distress Skin: Positive: Warm, Skin Color Reflects Adequate Perfusion, Dry Head/Face: Positive: Normal Head/Face Inspection Eyes: Positive: EOMI, CRISTIAN Neck: Positive: Supple, Nontender Respiratory/Lung Sounds: Positive: Decreased Breath Sounds Cardiovascular: Positive: RRR, Pulses are Symmetrical in both Upper and Lower Extremities Abdomen Description: Positive: Nontender, Soft Musculoskeletal: Positive: Strength/ROM Intact Neurological: Positive: Sensory/Motor Intact, Alert, Oriented to Person Place, Time Psychiatric: Positive: Affect/Mood Appropriate AVPU Assessment: Alert Diagnostics - Vital Signs Vital Signs Temp Pulse Resp BP Pulse Ox 05/01/17 20:30 68 30 118/60 96 05/01/17 20:00 78 28 125/62 98 05/01/17 19:30 79 33 143/58 97 05/01/17 19:21 67 29 125/58 97 05/01/17 19:00 68 27 97 05/01/17 18:24 100 05/01/17 18:00 82 25 100 05/01/17 17:11 21 05/01/17 17:09 97.7 F 95 18 131/70 100 05/01/17 17:07 97.7 F 95 18 131/70 100 - Laboratory Lab Results: Lab Results 05/01/17 05/01/17 05/01/17 Range/Units 17:21 17:21 17:21 WBC 11.7 H (3.5-10.8) 10^3/ul RBC 4.80 (4.0-5.4) 10^6/ul Hgb 12.9 (12.0-16.0) g/dl Hct 40 (35-47) % MCV 84 (80-97) fL MCH 27 (27-31) pg MCHC 32 (31-36) g/dl RDW 16 H (10.5-15) % Plt Count 197 (150-450) 10^3/ul MPV 8 (7.4-10.4) um3 Neut % (Auto) 88.1 H (38-83) % Lymph % (Auto) 6.5 L (25-47) % [place] % (Auto) 5.3 (1-9) % Eos % (Auto) 0.1 (0-6) % Baso % (Auto) 0 (0-2) % Absolute Neuts (auto) 10.3 H (1.5-7.7) 10^3/ul Absolute Lymphs (auto) 0.8 L (1.0-4.8) 10^3/ul Absolute Monos (auto) 0.6 (0-0.8) 10^3/ul Absolute Eos (auto) 0 (0-0.6) 10^3/ul Absolute Basos (auto) 0 (0-0.2) 10^3/ul Absolute Nucleated RBC 0.01 10^3/ul Nucleated RBC % 0.1 Sodium 139 (133-145) mmol/L Potassium 4.4 (3.5-5.0) mmol/L Chloride 106 (101-111) mmol/L Carbon Dioxide 31 (22-32) mmol/L Anion Gap 2 (2-11) mmol/L BUN 25 H (6-24) mg/dL Creatinine 1.01 H (0.51-0.95) mg/dL Est GFR ( Amer) 72.1 (>60) Est GFR (Non-Af Amer) 56.1 (>60) BUN/Creatinine Ratio 24.8 H (8-20) Glucose 110 H (70-100) mg/dL Lactic Acid 1.2 (0.5-2.0) mmol/L Calcium 9.6 (8.6-10.3) mg/dL Total Bilirubin 0.30 (0.2-1.0) mg/dL AST 8 L (13-39) U/L ALT 8 (7-52) U/L Alkaline Phosphatase 72 (34-104) U/L Troponin I 0.01 (<0.04) ng/mL B-Natriuretic Peptide ( - 100) pg/mL Total Protein 6.0 L (6.4-8.9) g/dL Albumin 3.6 (3.2-5.2) g/dL Globulin 2.4 (2-4) g/dL Albumin/Globulin Ratio 1.5 (1-3) 05/01/ Range/Units 17:21 WBC (3.5-10.8) 10^3/ul RBC (4.0-5.4) 10^6/ul Hgb (12.0-16.0) g/dl Hct (35-47) % MCV (80-97) fL MCH (27-31) pg MCHC (31-36) g/dl RDW (10.5-15) % Plt Count (150-450) 10^3/ul MPV (7.4-10.4) um3 Neut % (Auto) (38-83) % Lymph % (Auto) (25-47) % [place] % (Auto) (1-9) % Eos % (Auto) (0-6) % Baso % (Auto) (0-2) % Absolute Neuts (auto) (1.5-7.7) 10^3/ul Absolute Lymphs (auto) (1.0-4.8) 10^3/ul Absolute Monos (auto) (0-0.8) 10^3/ul Absolute Eos (auto) (0-0.6) 10^3/ul Absolute Basos (auto) (0-0.2) 10^3/ul Absolute Nucleated RBC 10^3/ul Nucleated RBC % Sodium (133-145) mmol/L Potassium (3.5-5.0) mmol/L Chloride (101-111) mmol/L Carbon Dioxide (22-32) mmol/L Anion Gap (2-11) mmol/L BUN (6-24) mg/dL Creatinine (0.51-0.95) mg/dL Est GFR ( Amer) (>60) Est GFR (Non-Af Amer) (>60) BUN/Creatinine Ratio (8-20) Glucose (70-100) mg/dL Lactic Acid (0.5-2.0) mmol/L Calcium (8.6-10.3) mg/dL Total Bilirubin (0.2-1.0) mg/dL AST (13-39) U/L ALT (7-52) U/L Alkaline Phosphatase (34-104) U/L Troponin I (<0.04) ng/mL B-Natriuretic Peptide 169 H ( - 100) pg/mL Total Protein (6.4-8.9) g/dL Albumin (3.2-5.2) g/dL Globulin (2-4) g/dL Albumin/Globulin Ratio (1-3) Result Diagrams: 05/01/17 17:21 05/01/17 17:21 Lab Statement: Any lab studies that have been ordered have been reviewed, and results considered in the medical decision making process. - Radiology CXR Xray Interpretation: No Acute Changes Radiology Interpretation Completed By: Radiologist - EKG 1706 Cardiac Rate: NL - at 92 bpm EKG Rhythm: Sinus Rhythm Ectopy: PACs Chest Pain Course/Dx - Course Course Of Treatment: Ms. Camejo has failed outpatient treatment and will be admitted to the hospitalist service. - Diagnoses Provider Diagnoses: COPD exacerbation - Provider Notifications Discussed Care Of Patient With: Star Hugo Time Discussed With Above Provider: 19:36 Instructed by Provider To: Admit As Inpatient Discharge - Discharge Plan Condition: Stable Disposition: ADMITTED TO [facility] documentation as recorded by the Mu kiran Soohyun accurately reflects the service I personally performed and the decisions made by , Elliott Tang MD.
[2017-05-01] MEDS: predniSONE TAB* 20 MG PO SCH (22:20)
[2017-05-01] MEDS: Lithium Carbonate TAB* 300 MG PO SCH (22:20)
[2017-05-01] MEDS: Gabapentin CAP(*) 100 MG PO SCH (22:20)
[2017-05-01] MEDS: Metoprolol Tartrate TAB* 50 mg PO SCH (22:22)
[2017-05-01] MEDS: NS 0.9% 1000 ML* 1,000 ML IV SCH (22:23)
[2017-05-01] MEDS: Albuterol/Ipratropium NEB.SOL* Albuterol 2.5 MG/Ipratropium 0.5 MG 3 ML INH SCH (22:26)
[2017-05-01] MEDS: Nicotine Inhaler* 10 MG AMP INH PRN (22:44)
[2017-05-01] MEDS ORDERED: Mouth Piece, Nicotine* 1 EACH CARTRIDGE INH ONE (23:00)
--- NOTE | 2017-05-01 23:49 | HP ---
HISTORY AND PHYSICAL: DATE OF ADMISSION: 05/01/17 PRIMARY CARE DOCTOR: Tom Schrader MD. ATTENDING PHYSICIAN: Star Hugo MD * (DICTATED BY FIONA OCHOA) HEALTHCARE PROXY: Her son, Maikel Camejo. CHIEF COMPLAINT: Shortness of breath. HISTORY OF PRESENT ILLNESS: Ms. Camejo is a 61-year-old female with past medical history significant for COPD, peripheral vascular disease, hypertension , hyperlipidemia, DVT, anxiety, depression, schizophrenia, and bipolar disorder , who presents with a several day history of worsening shortness of breath. Patient states that her chest feels "junky" and hurts. Patient states she has a cough, which has been intermittently productive of yellowish sputum. The patient also complains of chest tightness, which she describes as squeezing. Patient states it feels like previous episodes of COPD exacerbations that she has had. The patient also states that she was given nitroglycerin in the ambulance and it helped. Patient states she does not have any pain in her legs, no swelling and this does not feel like when she had a DVT in the past. Patient denies lightheadedness, dizziness. Patient states that she felt like her heart was pounding in her chest before she called the ambulance and then that resolved when she was given nitroglycerin as well. Patient denies any sick contacts or recent travel. Patient denies any changes in intake. Patient states she drinks 8 to 9 glasses of water a day. Patient denies any recent changes in medication. PAST MEDICAL HISTORY: IBS. PAST SURGICAL HISTORY: Appendectomy, cholecystectomy, hernia repair, and bilateral lower leg angioplasty. MEDICATIONS: 1. Patient takes warfarin 3 mg p.o. daily. 2. Patient takes Incruse 1 capsule inhalation daily. 3. Patient takes Singulair 10 mg p.o. daily. 4. Mirtazapine 7.5 mg p.o. nightly. 5. Metoprolol 25 mg p.o. b.i.d. 6. [place] 300 mg p.o. b.i.d. 7. Imdur 30 mg p.o. daily. 8. Gabapentin 100 mg p.o. daily. 9. Breo 125 two puffs daily. 10. Nexium 40 mg p.o. daily. 11. Lipitor 10 mg p.o. daily. Patient has albuterol inhaler, Ventolin q.6 hours p.r.n., and albuterol nebulizer also p.r.n. and Maalox 30 mL as needed for indigestion. ALLERGIES: To BUPROPION, CEPHALOSPORINS, PENICILLINS, CHLORPROMAZINE, ERYTHROMYCIN, TOBRAMYCIN. FAMILY HISTORY: Patient has a family history significant for coronary artery disease in her father and brother. Patient denies family history of diabetes, cancer, or respiratory disease. SOCIAL HISTORY: Patient has been smoking half a pack a day for the last 40 years and is a current smoker. Patient denies current or previous alcohol abuse. Patient denies illicit drug abuse. Patient has 1 child. REVIEW OF SYSTEMS: Patient denies fevers, chills, fatigue, edema, nausea, vomiting, diarrhea, abdominal pain, changes in her urine, dysuria, changes in her vision, headaches, reflux, rashes, pain in her legs. PHYSICAL EXAMINATION GENERAL IMPRESSION: Patient is a 61-year-old female who appears older than her stated age, lying on the stretcher in moderate distress as she is having difficulty breathing. HEENT: Normocephalic, atraumatic. Pupils equal, round, and reactive to light. Sclerae anicteric. Pharynx nonerythematous. No lymphadenopathy. RESPIRATORY: Lungs have loud rhonchorous sounds in all lung florence but with good air exchange. No wheezes or rales. CARDIOVASCULAR: Regular rate and rhythm. No clicks, murmurs, gallops, rubs. 2 + pulses in the bilateral radial, 1+ in bilateral posterior tibialis and dorsalis pedis pulses. No edema noted in the lower extremities. ABDOMEN: Soft, nontender. Bowel sounds positive in all 4 quadrants. No hepatosplenomegaly. NEUROLOGIC: Cranial nerves II through XII grossly intact. Patent Attorney strength equal bilaterally. SKIN: Pale, dry, intact. LABORATORY RESULTS: White blood cell count 11.7, hemoglobin 12.9, hematocrit 40. Sodium 139, potassium 4.4, chloride 106, carbon dioxide 31, BUN 25, creatinine 1.01, glucose 110. BNP 169, troponin 0.01. EKG showed Q waves in the inferior leads possibly indicating an old infarct with J point elevations in II, III, aVF, V2, V3, and V4 that are consistent with previous studies. Patient has a chest x-ray, which the report shows no acute cardiopulmonary disease. IMPRESSION: MS. Bashir is a 61-year-old female with past medical history significant for chronic obstructive pulmonary disease, peripheral vascular disease, hypertension, hyperlipidemia, deep vein thrombosis, and schizophrenia, who presents to the emergency room with shortness of breath and chest pain consistent with previous chronic obstructive pulmonary disease exacerbations. She will be admitted to inpatient on the telemetry floor to rule out acute coronary syndrome and to treat chronic obstructive pulmonary disease exacerbation. ASSESSMENT AND PLAN: 1. Shortness of breath, started on DuoNeb q.4 hours as scheduled with Ventolin inhalation treatments every 2 hours in between. Patient was started on prednisone 60 mg p.o. daily, azithromycin 500 mg today and 250 mg starting tomorrow. Patient was given incentive spirometer and a flutter valve. Recheck CBC, BMP. 2. Chest pain, rule out acute coronary syndrome: The patient had chest pain relieved by nitroglycerin with significant cardiac risk factors. We will admit to telemetry, trend troponins, and repeat EKG in the morning. 3. Hypertension: Continue metoprolol at home dose. Also continue Imdur at home dose. 4. Hyperlipidemia: Continue Lipitor at home dose. 5. History of deep venous thrombosis/DVT prophylaxis: Continue warfarin at home dose. Encourage ambulation as tolerated. We will check INR. 6. Schizoaffective disorder, bipolar type: Continue lithium at home dose. 7. Acute kidney injury: Prerenal. Patient has a creatinine of 1.01 with BUN of 25 indicating prerenal acute kidney injury. We will give normal saline 1000 mL at 100 and recheck labs in the morning. 8. FEN: Heart healthy diet, caffeine okay. Encourage p.o. intake. 9. Code status: Full code. 10. Disposition: Patient is expected to be inpatient for at least 3 days. TIME SPENT: Approximately 60 minutes was spent on this admission; 30 of which was spent [id number] with the patient. This case has been reviewed with the attending, Dr. Hugo, who agrees with the plan of care. FIONA OCHOA [id number]/CPS #: [id number] MTDD
[2017-05-02] MEDS: Albuterol/Ipratropium NEB.SOL* Albuterol 2.5 MG/Ipratropium 0.5 MG 3 ML INH SCH ×6 (03:12→22:38)
[2017-05-02 04:45] LABS: Hematocrit 34 % (35-47); Hemoglobin 11.1 g/dl (12.0-16.0); Mean Corpuscular HGB Conc 32 g/dl (31-36); Mean Corpuscular Hemoglobin 27 pg (27-31); Mean Corpuscular Volume 85 fL (80-97); Mean Platelet Volume 8 um3 (7.4-10.4); Red Blood Count 4.06 10^6/ul (4.0-5.4); Red Cell Distribution Width 16 % (10.5-15); White Blood Count 6.9 10^3/ul (3.5-10.8)
[2017-05-02 05:01] LABS: BUN/Creatinine Ratio 27.2 (8-20); Calcium 9.2 mg/dL (8.6-10.3); EGFR African American 80.4 (>60); EGFR Non-African American 62.5 (>60); Potassium 4.4 mmol/L (3.5-5.0)
[2017-05-02] MEDS: Nicotine Inhaler* 10 MG AMP INH PRN ×5 (06:03→20:17)
[2017-05-02] MEDS: Gabapentin CAP(*) 100 MG PO SCH ×2 (08:33→21:50)
[2017-05-02] MEDS: Azithromycin TAB* 250 MG PO SCH (08:33)
[2017-05-02] MEDS: Isosorbide Mononitrate ER TAB* 30 MG PO SCH (08:34)
[2017-05-02] MEDS: predniSONE TAB* 20 MG PO SCH (08:34)
[2017-05-02] MEDS: Lithium Carbonate TAB* 300 MG PO SCH ×2 (08:34→21:50)
[2017-05-02] MEDS: Montelukast Sodium TAB* 10 MG PO SCH (08:34)
[2017-05-02] MEDS: Omeprazole CAP* 20 MG PO SCH (08:34)
[2017-05-02] MEDS: Metoprolol Tartrate TAB* 50 mg PO SCH ×2 (08:35→21:50)
[2017-05-02] MEDS: NS 0.9% 1000 ML* 1,000 ML IV SCH (08:50)
--- NOTE | 2017-05-02 09:59 | PN ---
Subjective Date of Service: 05/02/17 Interval History: Dry cough. Some midsternal chest pain worse with deep inspiration. Little change in SOB. No new c/o. Anxious, requests alprazolam by name. Objective Active Medications: Al Hydrox/Mg Hydrox/Simethicone (Maalox Plus*) 30 ml PO DAILY PRN PRN Reason: INDIGESTION Albuterol (Ventolin 2.5 Mg/3 Ml Neb.Tania*) 2.5 mg INH Q2H PRN PRN Reason: SOB/WHEEZING Albuterol/Ipratropium (Duoneb (Albuterol 2.5 Mg/Ipratropium 0.5 Mg)) 1 neb INH [id number] AWAKE [facility] Last Admin: 05/02/17 08:21 Dose: 1 neb Alprazolam (Xanax Tab*) 0.25 mg PO Q4H PRN PRN Reason: ANXIETY Atorvastatin Calcium (Lipitor*) 10 mg PO 1700 [facility] Azithromycin (Zithromax Tab*) 250 mg PO DAILY [facility] Last Admin: 05/02/17 08:33 Dose: 250 mg Gabapentin (Neurontin Cap(*)) 100 mg PO BID [facility] Last Admin: 05/02/17 08:33 Dose: 100 mg Isosorbide Mononitrate (Imdur Er Tab*) 30 mg PO DAILY [facility] Last Admin: 05/02/17 08:34 Dose: 30 mg [place] Carbonate ([place] Carbonate Tab*) 300 mg PO BID [facility] Last Admin: 05/02/17 08:34 Dose: 300 mg Metoprolol Tartrate (Lopressor Tab*) 25 mg PO BID [facility] Last Admin: 05/02/17 08:35 Dose: 25 mg Montelukast Sodium (Singulair Tab*) 10 mg PO DAILY [facility] Last Admin: 05/02/17 08:34 Dose: 10 mg Nicotine (Nicotine Inhaler*) 10 mg INH Q2H PRN PRN Reason: CRAVING Last Admin: 05/02/17 08:50 Dose: 10 mg Omeprazole (Prilosec Cap*) 20 mg PO DAILY [facility] PRN Reason: Protocol Last Admin: 05/02/17 08:34 Dose: 20 mg Oxycodone/Acetaminophen (Percocet 5/325 Tab*) 1 tab PO Q6H PRN PRN Reason: PAIN Prednisone (Deltasone Tab*) 60 mg PO DAILY [facility] Last Admin: 05/02/17 08:34 Dose: 60 mg Warfarin Sodium (Coumadin Tab(*)) 2.5 mg PO 1700 [facility] PRN Reason: Protocol Vital Signs 05/01/17 05/01/17 05/01/17 21:00 21:36 21:41 Temperature 97.6 F 98.1 F Pulse Rate 68 88 85 Respiratory 30 26 28 Rate Blood Pressure 157/57 122/54 (mmHg) O2 Sat by Pulse 98 97 Oximetry 05/01/17 05/01/17 05/02/17 22:20 23:44 01:11 Temperature 98.0 F Pulse Rate 62 Respiratory 26 32 Rate Blood Pressure 115/55 (mmHg) O2 Sat by Pulse 99 93 Oximetry 05/02/17 05/02/17 05/02/17 03:45 07:43 08:00 Temperature 97.7 F 98.2 F Pulse Rate 62 73 Respiratory 24 24 24 Rate Blood Pressure 120/40 159/63 (mmHg) O2 Sat by Pulse 98 96 Oximetry 05/02/17 05/02/17 05/02/17 08:24 08:29 08:33 Temperature Pulse Rate 72 74 Respiratory 24 24 24 Rate Blood Pressure (mmHg) O2 Sat by Pulse 94 94 Oximetry Oxygen Devices in Use Now: Nasal Cannula Appearance: Alert, sitting on the edge of her bed. In fair spirits. Looks comfortable. No cough during my visit. Eyes: No Scleral Icterus Neck: NL Appearance and Movements; NL JVP, No Thyroid Enlargement, Masses Respiratory: Symmetrical Chest Expansion and Respiratory Effort, Clear to Percussion - mild to mod rhonchi BL. midsternal chest pain reporduced with mild pressure. Cardiovascular: NL Sounds; No Murmurs; No JVD, RRR, No Edema, - Extremities: No Edema, No Clubbing, Cyanosis, - Skin: No Rash or Ulcers, No Nodules or Sclerosis, - Neurological: Alert and Oriented x 3, NL Sensation - Somewhat anxious Result Diagrams: 05/02/17 04:29 05/02/17 04:29 Additional Lab and Data: Lab Results 05/01/17 05/01/17 05/01/17 Range/Units 17:21 17:21 17:21 WBC 11.7 H (3.5-10.8) 10^3/ul RBC 4.80 (4.0-5.4) 10^6/ul Hgb 12.9 (12.0-16.0) g/dl Hct 40 (35-47) % MCV 84 (80-97) fL MCH 27 (27-31) pg MCHC 32 (31-36) g/dl RDW 16 H (10.5-15) % Plt Count 197 (150-450) 10^3/ul MPV 8 (7.4-10.4) um3 Neut % (Auto) 88.1 H (38-83) % Lymph % (Auto) 6.5 L (25-47) % [place] % (Auto) 5.3 (1-9) % Eos % (Auto) 0.1 (0-6) % Baso % (Auto) 0 (0-2) % Absolute Neuts (auto) 10.3 H (1.5-7.7) 10^3/ul Absolute Lymphs (auto) 0.8 L (1.0-4.8) 10^3/ul Absolute Monos (auto) 0.6 (0-0.8) 10^3/ul Absolute Eos (auto) 0 (0-0.6) 10^3/ul Absolute Basos (auto) 0 (0-0.2) 10^3/ul Absolute Nucleated RBC 0.01 10^3/ul Nucleated RBC % 0.1 Sodium 139 (133-145) mmol/L Potassium 4.4 (3.5-5.0) mmol/L Chloride 106 (101-111) mmol/L Carbon Dioxide 31 (22-32) mmol/L Anion Gap 2 (2-11) mmol/L BUN 25 H (6-24) mg/dL Creatinine 1.01 H (0.51-0.95) mg/dL Est GFR ( Amer) 72.1 (>60) Est GFR (Non-Af Amer) 56.1 (>60) BUN/Creatinine Ratio 24.8 H (8-20) Glucose 110 H (70-100) mg/dL Lactic Acid 1.2 (0.5-2.0) mmol/L Calcium 9.6 (8.6-10.3) mg/dL Total Bilirubin 0.30 (0.2-1.0) mg/dL AST 8 L (13-39) U/L ALT 8 (7-52) U/L Alkaline Phosphatase 72 (34-104) U/L Troponin I 0.01 (<0.04) ng/mL B-Natriuretic Peptide ( - 100) pg/mL Total Protein 6.0 L (6.4-8.9) g/dL Albumin 3.6 (3.2-5.2) g/dL Globulin 2.4 (2-4) g/dL Albumin/Globulin Ratio 1.5 (1-3) // Range/Units 17:21 WBC (3.5-10.8) 10^3/ul RBC (4.0-5.4) 10^6/ul Hgb (12.0-16.0) g/dl Hct (35-47) % MCV (80-97) fL MCH (27-31) pg MCHC (31-36) g/dl RDW (10.5-15) % Plt Count (150-450) 10^3/ul MPV (7.4-10.4) um3 Neut % (Auto) (38-83) % Lymph % (Auto) (25-47) % [place] % (Auto) (1-9) % Eos % (Auto) (0-6) % Baso % (Auto) (0-2) % Absolute Neuts (auto) (1.5-7.7) 10^3/ul Absolute Lymphs (auto) (1.0-4.8) 10^3/ul Absolute Monos (auto) (0-0.8) 10^3/ul Absolute Eos (auto) (0-0.6) 10^3/ul Absolute Basos (auto) (0-0.2) 10^3/ul Absolute Nucleated RBC 10^3/ul Nucleated RBC % Sodium (133-145) mmol/L Potassium (3.5-5.0) mmol/L Chloride (101-111) mmol/L Carbon Dioxide (22-32) mmol/L Anion Gap (2-11) mmol/L BUN (6-24) mg/dL Creatinine (0.51-0.95) mg/dL Est GFR ( Amer) (>60) Est GFR (Non-Af Amer) (>60) BUN/Creatinine Ratio (8-20) Glucose (70-100) mg/dL Lactic Acid (0.5-2.0) mmol/L Calcium (8.6-10.3) mg/dL Total Bilirubin (0.2-1.0) mg/dL AST (13-39) U/L ALT (7-52) U/L Alkaline Phosphatase (34-104) U/L Troponin I (<0.04) ng/mL B-Natriuretic Peptide 169 H ( - 100) pg/mL Total Protein (6.4-8.9) g/dL Albumin (3.2-5.2) g/dL Globulin (2-4) g/dL Albumin/Globulin Ratio (1-3) Assess/Plan/Problems-Billing Assessment: - Patient Problems (1) COPD exacerbation Current Visit: No Status: Acute Priority: Medium Code(s): J44.1 - CHRONIC OBSTRUCTIVE PULMONARY DISEASE W (ACUTE) EXACERBATION SNOMED Code(s): 739906956 Comment: - Continue prednisone, azithromycin, duonebs. Chest pain reported in past, either with copd exacerbation or as her baseline. (2) Borderline personality disorder in adult Current Visit: No Status: Acute Code(s): F60.3 - BORDERLINE PERSONALITY DISORDER SNOMED Code(s): 44899385 Comment: Continue home psychotropic meds. PRN alprazolam ordered. (3) Tobacco abuse Current Visit: No Status: Acute Priority: Medium Code(s): Z72.0 - TOBACCO USE SNOMED Code(s): 817131914 Comment: Pt advised to quit smoking and avoid second hand smoke. (4) Hypertension Current Visit: No Status: Chronic Priority: Medium Code(s): I10 - ESSENTIAL (PRIMARY) HYPERTENSION SNOMED Code(s): 38432864 Comment: Continue isosorbide, metoprolol (5) Hx of deep venous thrombosis Current Visit: No Status: Chronic Priority: Medium Code(s): Z86.718 - PERSONAL HISTORY OF OTHER VENOUS THROMBOSIS AND EMBOLISM SNOMED Code(s): 056270808 Comment: Reduce warfarin to 2.5 mg 1700 hrs on 05/02, INR 05/03.
[2017-05-02] MEDS: ALPRAZolam TAB* 0.25 MG PO PRN ×2 (10:05→19:23)
[2017-05-02] MEDS: Atorvastatin* 10 MG TAB PO SCH (16:58)
[2017-05-02] MEDS ORDERED: Warfarin TAB(*) 2.5 MG PO SCH (17:00)
[2017-05-02] MEDS ORDERED: Warfarin TAB(*) 3 MG PO SCH (17:00)
[2017-05-03] MEDS: Albuterol/Ipratropium NEB.SOL* Albuterol 2.5 MG/Ipratropium 0.5 MG 3 ML INH SCH ×6 (03:31→23:22)
[2017-05-03] MEDS: Nicotine Inhaler* 10 MG AMP INH PRN ×3 (06:11→18:25)
[2017-05-03] MEDS: Omeprazole CAP* 20 MG PO SCH (07:29)
[2017-05-03] MEDS: Isosorbide Mononitrate ER TAB* 30 MG PO SCH (07:29)
[2017-05-03] MEDS: Gabapentin CAP(*) 100 MG PO SCH ×2 (07:29→20:45)
[2017-05-03] MEDS: Montelukast Sodium TAB* 10 MG PO SCH (07:30)
[2017-05-03] MEDS: predniSONE TAB* 20 MG PO SCH (07:30)
[2017-05-03] MEDS: Lithium Carbonate TAB* 300 MG PO SCH ×2 (07:30→20:46)
[2017-05-03] MEDS: Azithromycin TAB* 250 MG PO SCH (07:30)
[2017-05-03] MEDS: Metoprolol Tartrate TAB* 50 mg PO SCH ×2 (07:31→20:46)
[2017-05-03] MEDS: ALPRAZolam TAB* 0.25 MG PO PRN (10:18)
--- NOTE | 2017-05-03 14:01 | PN ---
Subjective Date of Service: 05/03/17 Interval History: Slowly improving. Less sputum, less SOB. Hasn't tried walking in the [place] yet. No new c/o. Objective Active Medications: Al Hydrox/Mg Hydrox/Simethicone (Maalox Plus*) 30 ml PO DAILY PRN PRN Reason: INDIGESTION Albuterol (Ventolin 2.5 Mg/3 Ml Neb.Tania*) 2.5 mg INH Q2H PRN PRN Reason: SOB/WHEEZING Albuterol/Ipratropium (Duoneb (Albuterol 2.5 Mg/Ipratropium 0.5 Mg)) 1 neb INH [id number] AWAKE [facility] Last Admin: 05/03/17 11:49 Dose: 1 neb Alprazolam (Xanax Tab*) 0.25 mg PO Q4H PRN PRN Reason: ANXIETY Last Admin: 05/03/17 10:18 Dose: 0.25 mg Atorvastatin Calcium (Lipitor*) 10 mg PO 1700 [facility] Last Admin: 05/02/17 16:58 Dose: 10 mg Azithromycin (Zithromax Tab*) 250 mg PO DAILY [facility] Last Admin: 05/03/17 07:30 Dose: 250 mg Gabapentin (Neurontin Cap(*)) 100 mg PO BID [facility] Last Admin: 05/03/17 07:29 Dose: 100 mg Isosorbide Mononitrate (Imdur Er Tab*) 30 mg PO DAILY [facility] Last Admin: 05/03/17 07:29 Dose: 30 mg Gallitzin Carbonate (Gallitzin Carbonate Tab*) 300 mg PO BID [facility] Last Admin: 05/03/17 07:30 Dose: 300 mg Metoprolol Tartrate (Lopressor Tab*) 25 mg PO BID [facility] Last Admin: 05/03/17 07:31 Dose: 25 mg Montelukast Sodium (Singulair Tab*) 10 mg PO DAILY [facility] Last Admin: 05/03/17 07:30 Dose: 10 mg Nicotine (Nicotine Inhaler*) 10 mg INH Q2H PRN PRN Reason: CRAVING Last Admin: 05/03/17 13:31 Dose: 10 mg Omeprazole (Prilosec Cap*) 20 mg PO DAILY [facility] PRN Reason: Protocol Last Admin: 05/03/17 07:29 Dose: 20 mg Oxycodone/Acetaminophen (Percocet 5/325 Tab*) 1 tab PO Q6H PRN PRN Reason: PAIN Prednisone (Deltasone Tab*) 60 mg PO DAILY [facility] Last Admin: 05/03/17 07:30 Dose: 60 mg Warfarin Sodium (Coumadin Tab(*)) 3 mg PO 1700 [facility] PRN Reason: Protocol Vital Signs 05/02/17 05/02/17 05/02/17 14:47 16:00 19:23 Temperature 97.8 F Pulse Rate 83 77 Respiratory 16 18 24 Rate Blood Pressure 138/56 (mmHg) O2 Sat by Pulse 94 95 Oximetry 05/02/17 05/02/17 05/02/17 19:35 20:00 20:52 Temperature 98.1 F Pulse Rate 76 63 Respiratory 20 16 Rate Blood Pressure 136/55 (mmHg) O2 Sat by Pulse 98 98 98 Oximetry 05/02/17 05/02/17 05/02/17 20:53 21:23 21:50 Temperature Pulse Rate 63 Respiratory 24 16 24 Rate Blood Pressure (mmHg) O2 Sat by Pulse 98 Oximetry 05/02/17 05/02/17 05/03/17 22:39 23:33 04:27 Temperature 97.7 F 97.7 F Pulse Rate 74 65 72 Respiratory 16 16 20 Rate Blood Pressure 138/96 134/41 (mmHg) O2 Sat by Pulse 99 100 100 Oximetry 05/03/17 05/03/17 05/03/17 06:22 07:21 07:29 Temperature 97.5 F Pulse Rate 68 Respiratory 16 22 22 Rate Blood Pressure 133/46 (mmHg) O2 Sat by Pulse 100 Oximetry 05/03/17 05/03/17 05/03/17 08:03 09:29 10:18 Temperature Pulse Rate 64 Respiratory 20 22 24 Rate Blood Pressure (mmHg) O2 Sat by Pulse 98 Oximetry 05/03/17 05/03/17 11:48 12:18 Temperature Pulse Rate 72 Respiratory 22 Rate Blood Pressure (mmHg) O2 Sat by Pulse 98 Oximetry Oxygen Devices in Use Now: Nasal Cannula Appearance: Alert, partly up in bed. Somewhat anxious, otherwise looks comfortable. Respiratory: Symmetrical Chest Expansion and Respiratory Effort, Clear to Auscultation, Clear to Percussion Extremities: No Edema, No Clubbing, Cyanosis, - Skin: No Rash or Ulcers, No Nodules or Sclerosis, - Neurological: Alert and Oriented x 3, NL Sensation Result Diagrams: 05/02/17 04:29 08/23/17 04:29 Additional Lab and Data: Lab Results 05/01/17 05/01/17 05/01/17 Range/Units 17:21 17:21 17:21 WBC 11.7 H (3.5-10.8) 10^3/ul RBC 4.80 (4.0-5.4) 10^6/ul Hgb 12.9 (12.0-16.0) g/dl Hct 40 (35-47) % MCV 84 (80-97) fL MCH 27 (27-31) pg MCHC 32 (31-36) g/dl RDW 16 H (10.5-15) % Plt Count 197 (150-450) 10^3/ul MPV 8 (7.4-10.4) um3 Neut % (Auto) 88.1 H (38-83) % Lymph % (Auto) 6.5 L (25-47) % [place] % (Auto) 5.3 (1-9) % Eos % (Auto) 0.1 (0-6) % Baso % (Auto) 0 (0-2) % Absolute Neuts (auto) 10.3 H (1.5-7.7) 10^3/ul Absolute Lymphs (auto) 0.8 L (1.0-4.8) 10^3/ul Absolute Monos (auto) 0.6 (0-0.8) 10^3/ul Absolute Eos (auto) 0 (0-0.6) 10^3/ul Absolute Basos (auto) 0 (0-0.2) 10^3/ul Absolute Nucleated RBC 0.01 10^3/ul Nucleated RBC % 0.1 Sodium 139 (133-145) mmol/L Potassium 4.4 (3.5-5.0) mmol/L Chloride 106 (101-111) mmol/L Carbon Dioxide 31 (22-32) mmol/L Anion Gap 2 (2-11) mmol/L BUN 25 H (6-24) mg/dL Creatinine 1.01 H (0.51-0.95) mg/dL Est GFR ( Amer) 72.1 (>60) Est GFR (Non-Af Amer) 56.1 (>60) BUN/Creatinine Ratio 24.8 H (8-20) Glucose 110 H (70-100) mg/dL Lactic Acid 1.2 (0.5-2.0) mmol/L Calcium 9.6 (8.6-10.3) mg/dL Total Bilirubin 0.30 (0.2-1.0) mg/dL AST 8 L (13-39) U/L ALT 8 (7-52) U/L Alkaline Phosphatase 72 (34-104) U/L Troponin I 0.01 (<0.04) ng/mL B-Natriuretic Peptide ( - 100) pg/mL Total Protein 6.0 L (6.4-8.9) g/dL Albumin 3.6 (3.2-5.2) g/dL Globulin 2.4 (2-4) g/dL Albumin/Globulin Ratio 1.5 (1-3) // Range/Units 17:21 WBC (3.5-10.8) 10^3/ul RBC (4.0-5.4) 10^6/ul Hgb (12.0-16.0) g/dl Hct (35-47) % MCV (80-97) fL MCH (27-31) pg MCHC (31-36) g/dl RDW (10.5-15) % Plt Count (150-450) 10^3/ul MPV (7.4-10.4) um3 Neut % (Auto) (38-83) % Lymph % (Auto) (25-47) % [place] % (Auto) (1-9) % Eos % (Auto) (0-6) % Baso % (Auto) (0-2) % Absolute Neuts (auto) (1.5-7.7) 10^3/ul Absolute Lymphs (auto) (1.0-4.8) 10^3/ul Absolute Monos (auto) (0-0.8) 10^3/ul Absolute Eos (auto) (0-0.6) 10^3/ul Absolute Basos (auto) (0-0.2) 10^3/ul Absolute Nucleated RBC 10^3/ul Nucleated RBC % Sodium (133-145) mmol/L Potassium (3.5-5.0) mmol/L Chloride (101-111) mmol/L Carbon Dioxide (22-32) mmol/L Anion Gap (2-11) mmol/L BUN (6-24) mg/dL Creatinine (0.51-0.95) mg/dL Est GFR ( Amer) (>60) Est GFR (Non-Af Amer) (>60) BUN/Creatinine Ratio (8-20) Glucose (70-100) mg/dL Lactic Acid (0.5-2.0) mmol/L Calcium (8.6-10.3) mg/dL Total Bilirubin (0.2-1.0) mg/dL AST (13-39) U/L ALT (7-52) U/L Alkaline Phosphatase (34-104) U/L Troponin I (<0.04) ng/mL B-Natriuretic Peptide 169 H ( - 100) pg/mL Total Protein (6.4-8.9) g/dL Albumin (3.2-5.2) g/dL Globulin (2-4) g/dL Albumin/Globulin Ratio (1-3) Assess/Plan/Problems-Billing Assessment: - Patient Problems (1) COPD exacerbation Current Visit: No Status: Acute Priority: Medium Code(s): J44.1 - CHRONIC OBSTRUCTIVE PULMONARY DISEASE W (ACUTE) EXACERBATION SNOMED Code(s): 888101347 Comment: Taper prednisone, continue azithromycin, duonebs. Chest pain reported in past, either with copd exacerbation or as her baseline. (2) Borderline personality disorder in adult Current Visit: No Status: Acute Code(s): F60.3 - BORDERLINE PERSONALITY DISORDER SNOMED Code(s): 37039953 Comment: Continue home psychotropic meds. PRN alprazolam ordered. (3) Tobacco abuse Current Visit: No Status: Acute Priority: Medium Code(s): Z72.0 - TOBACCO USE SNOMED Code(s): 821982629 Comment: Pt advised to quit smoking and avoid second hand smoke. (4) Hypertension Current Visit: No Status: Chronic Priority: Medium Code(s): I10 - ESSENTIAL (PRIMARY) HYPERTENSION SNOMED Code(s): 82415190 Comment: Continue isosorbide, metoprolol (5) Hx of deep venous thrombosis Current Visit: No Status: Chronic Priority: Medium Code(s): Z86.718 - PERSONAL HISTORY OF OTHER VENOUS THROMBOSIS AND EMBOLISM SNOMED Code(s): 519255770 Comment: Resume warfarin 3 mg q 1700 hrs, repeat INR as outpt.
[2017-05-03] MEDS: Atorvastatin* 10 MG TAB PO SCH (16:13)
[2017-05-03] MEDS ORDERED: Warfarin TAB(*) 3 MG PO SCH (17:00)
[2017-05-04] MEDS: Albuterol/Ipratropium NEB.SOL* Albuterol 2.5 MG/Ipratropium 0.5 MG 3 ML INH SCH ×4 (03:25→14:50)
[2017-05-04] MEDS: Nicotine Inhaler* 10 MG AMP INH PRN ×2 (05:14→07:43)
[2017-05-04] MEDS: Isosorbide Mononitrate ER TAB* 30 MG PO SCH (07:42)
[2017-05-04] MEDS: Lithium Carbonate TAB* 300 MG PO SCH (07:42)
[2017-05-04] MEDS: Azithromycin TAB* 250 MG PO SCH (07:42)
[2017-05-04] MEDS: Omeprazole CAP* 20 MG PO SCH (07:42)
[2017-05-04] MEDS: Gabapentin CAP(*) 100 MG PO SCH (07:43)
[2017-05-04] MEDS: Montelukast Sodium TAB* 10 MG PO SCH (07:43)
[2017-05-04] MEDS: Metoprolol Tartrate TAB* 50 mg PO SCH (07:44)
[2017-05-04] MEDS ORDERED: predniSONE TAB* 50 MG PO SCH (09:00)
[2017-05-04 14:34] VITALS: BP 112/47
--- NOTE | 2017-05-05 05:02 | DS ---
CC: Tom Schrader MD * DISCHARGE SUMMARY: DATE OF ADMISSION: 05/01/17 DATE OF DISCHARGE: 05/04/17 ADMISSION DIAGNOSES: 1. Chronic obstructive pulmonary disease exacerbation. 2. Shortness of breath. 3. Chest pain. 4. Hypertension. 5. Hyperlipidemia. 6. Schizoaffective disorder. 7. Acute kidney injury. DISCHARGE DIAGNOSES: 1. Chronic obstructive pulmonary disease exacerbation. 2. Shortness of breath. 3. Chest pain. 4. Hypertension. 5. Hyperlipidemia. 6. Schizoaffective disorder. 7. Acute kidney injury. HOSPITAL COURSE: The patient is a 61-year-old woman, who presented to the [facility] with a chief complaint of worsening shortness of breath. Please see H and P for further information. The patient was admitted and placed on nebulizer therapy, prednisone and azithromycin. The patient improved dramatically over the next few days. The patient did have some chest pain and troponins were cycled and she ruled out for acute coronary syndrome. By the date of discharge, the patient was feeling improved and back to baseline and anxious to go home. PHYSICAL EXAMINATION: On the date of discharge: Vital signs: Temperature 97.6 degrees, heart rate 62 beats per minute, respiratory rate 14 breaths per minute, pulse ox 98%, blood pressure 112/47. HEENT: Normocephalic, atraumatic. Pupils equal, round, and reactive to light. Moist mucous membranes. Neck: Supple. No JVD, bruits, palpable thyroid or lymphadenopathy. Chest: She has got some coarse breath sounds. Cardiovascular Exam: S1 and S2 appreciated. Abdominal Exam: Positive bowel sounds in all 4 quadrants. Soft, nontender, and nondistended. No hepatosplenomegaly. Extremities: No cyanosis, clubbing, or edema. +2 pulses bilaterally. Neuro: Alert and oriented x3. Moves all extremities. Skin: No rashes or abnormalities. STUDIES DONE WHILE IN THE HOSPITAL: Chest x-ray on 05/01/17, impression: No radiographic evidence of acute cardiopulmonary disease. DISCHARGE MEDICATIONS: 1. Zyprexa 30 mg in the evening. 2. Fluticasone and vilanterol 1 puff inhaled daily. 3. Nexium 40 mg daily. 4. Lipitor 10 mg daily. 5. Albuterol inhaler q.4 hours p.r.n. 6. Albuterol nebulizer 2.5 mg every 2 hours as needed. 5. Maalox Plus 30 cc daily as needed. 6. Basco carbonate 300 mg twice daily. 7. Isosorbide mononitrate 30 mg daily. 8. Gabapentin 100 mg twice daily. 9. Percocet 1 tablet every 6 hours as needed. 10. Coumadin 2 mg daily. 11. Singulair 10 mg daily. 12. Mirtazapine 7.5 mg at bedtime. 13. Metoprolol tartrate 25 mg twice daily. 14. Prednisone taper 40 mg p.o. daily for 3 days, then 30 mg daily for 3 days, then 20 mg daily for 2 days, then 10 mg daily for 2 days, then 5 mg daily for 2 days, then off. 15. Nicotine inhaler as directed. 16. Zithromax 250 mg daily for 3 days. DISCHARGE PLAN: The patient will be discharged to home. She will follow up with her PCP within 1 week. The patient will return to the ED if symptoms recur. TIME SPENT: Over 40 minutes was spent on this discharge, more than 25 minutes was spent in direct [id number] contact with the patient in evaluation, physical exam, counseling, and coordination of care. [id number]/CPS #: [id number] MTDD
== END 2017-05-04 14:43 | disposition home or self-care (01) | DRG 191 ==
LOC: ED 17:04 → MEDTELE 20:32
PROVIDERS: ADMIT Hospitalist; ATTEND Internal Medicine
DX: J44.1 Chronic obstructive pulmonary disease with (acute) exacerbation (principal); N17.9 Acute kidney failure, unspecified; F25.0 Schizoaffective disorder, bipolar type; I10 Essential (primary) hypertension; I73.9 Peripheral vascular disease, unspecified; E78.5 Hyperlipidemia, unspecified; F41.9 Anxiety disorder, unspecified; F31.9 Bipolar disorder, unspecified; F17.210 Nicotine dependence, cigarettes, uncomplicated; I25.10 Atherosclerotic heart disease of native coronary artery without angina pectoris; F60.3 Borderline personality disorder; R07.9 Chest pain, unspecified; K58.9 Irritable bowel syndrome, unspecified; Z90.49 Acquired absence of other specified parts of digestive tract; Z95.820 Peripheral vascular angioplasty status with implants and grafts; Z86.718 Personal history of other venous thrombosis and embolism; Z79.01 Long term (current) use of anticoagulants; Z88.1 Allergy status to other antibiotic agents; Z88.0 Allergy status to penicillin; Z88.8 Allergy status to other drugs, medicaments and biological substances; Z82.49 Family history of ischemic heart disease and other diseases of the circulatory system; Z87.01 Personal history of pneumonia (recurrent); Z91.5 Personal history of self-harm; Z81.8 Family history of other mental and behavioral disorders
CPT/HCPCS: 36415; 71010; 71020; 80048; 80053; 82550; 83605; 83735; 83880; 84484; 85025; 85610; 87040; 93005; 94640; 94760; A9270-GY; J2930; J7512

== ENCOUNTER 2017-05-11 20:39 | Emergency (ER) | payer MEDICARE, MEDICAID ==
[2017-05-11] MEDS ORDERED: methylPREDNISolone 125 MG* 2 ML VIAL IV ONE (20:53)
[2017-05-11] MEDS ORDERED: Albuterol/Ipratropium NEB.SOL* Albuterol 2.5 MG/Ipratropium 0.5 MG 3 ML INH ONE (20:53)
--- NOTE | 2017-05-11 21:45 | RAD ---
Indication: Shortness of breath. 2 views of the chest are reviewed. Comparison is made with previous exam dated May 01, 2017. No mediastinal shift is noted. Heart is of normal size and configuration. Lung florence are clear. IMPRESSION: No active cardiopulmonary disease is noted.
[2017-05-11 22:26] LABS: Hematocrit 38 % (35-47); Mean Corpuscular HGB Conc 32 g/dl (31-36); Mean Corpuscular Hemoglobin 27 pg (27-31); Mean Corpuscular Volume 86 fL (80-97); Mean Platelet Volume 8 um3 (7.4-10.4); Red Blood Count 4.39 10^6/ul (4.0-5.4); Red Cell Distribution Width 16 % (10.5-15); White Blood Count 12.8 10^3/ul (3.5-10.8)
[2017-05-11 22:42] LABS: Albumin 3.5 g/dL (3.2-5.2); BUN/Creatinine Ratio 14.8 (8-20); Calcium 9.2 mg/dL (8.6-10.3); EGFR African American 84.6 (>60); EGFR Non-African American 65.8 (>60); Potassium 4.3 mmol/L (3.5-5.0); Total Bilirubin 0.4 mg/dL (0.2-1.0); Total Protein 5.5 g/dL (6.4-8.9)
--- NOTE | 2017-05-12 00:29 | ED ---
Ramesh Laboy Rebecca, scribed for Cristopher Hernandes MD on 05/11/17 at 2055 . HPI Chest Pain - HPI Summary HPI Summary: Pt is a 61 y/o F BIBA who presents to ED c/o midsternal CP. Pain began at approximately 1930 today and has been constant since onset. Pain is currently severe, ranked 8/10. 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 Pt cannot think of any catalysts that triggered sx today, sx unchanged by deep breaths, aggravated and alleviated by nothing. Additionally c/o SOB and nonproductive cough. Confirms feeling well prior to onset of sx today. Uses 2L Os per Os at home at night. Pt was D/C from [facility] 1 week ago for similar presentation of symptoms. - History of Current Complaint Chief Complaint: EDShortnessOfBreath Time Seen by Provider: 05/11/17 20:49 Hx Obtained From: Patient Onset/Duration: Started Hours Ago, Still Present Time of Onset: 19:30 Timing: Constant Current Severity: Severe Pain Intensity: 8 Pain Scale Used: 0-10 Numeric Chest Pain Location: Mid Sternal Aggravating Factor(s): Nothing Alleviating Factor(s): Nothing Associated Signs and Symptoms: Positive: Shortness of Breath, Nonproductive Cough - Additional Pertinent History Primary Care Physician: [id number] - Allergy/Home Medications Allergies/Adverse Reactions: Allergies Allergy/AdvReac Type Severity Reaction Status Date / Time Bupropion [From Wellbutrin] Allergy Severe Agitation Verified 05/11/17 22:17 Cephalosporins Allergy Severe Agitation Verified 05/11/17 22:17 Penicillins [PCN] Allergy Intermediate Hives Verified 05/11/17 22:17 Chlorpromazine AdvReac Severe Diarrhea Verified 05/11/17 22:17 Erythromycin AdvReac Intermediate Diarrhea Verified 05/11/17 22:17 Tobramycin AdvReac Intermediate Diarrhea Verified 05/11/17 22:17 PMH/Surg Hx/FS Hx/Imm Hx Endocrine/Hematology History: Reports: Hx Anticoagulant Therapy, Other Endocrine /Hematological Disorders - L leg DVT Denies: Hx Diabetes, Hx Systemic Lupus Erythematosus, Hx Thyroid Disease Cardiovascular History: Reports: Hx Angina, Hx Coronary Artery Disease, Hx Deep Vein Thrombosis, Hx Hypercholesterolemia, Hx Hypertension, Hx Peripheral Vascular Disease, Other Cardiovascular Problems/Disorders - PERIPHERAL ARTERY DISEASE; CAD; DVT Denies: Hx Congestive Heart Failure, Hx Pacemaker/ICD Respiratory History: Reports: Hx Asthma, Hx Chronic Bronchitis, Hx Chronic Obstructive Pulmonary Disease (COPD), Hx Pneumonia, Hx Seasonal Allergies, Other Respiratory Problems/Disorders - PNA Denies: Hx Cystic Fibrosis, Hx Lung Cancer, Hx Pleural Effusion, Hx Pulmonary Edema, Hx Pulmonary Embolism, Hx Sleep Apnea GI History: Reports: Hx Gall Bladder Disease - removed, Hx Gastroesophageal Reflux Disease, Hx Irritable Bowel, Other GI Disorders - hernia repair X 2 Denies: Hx Cirrhosis, Hx Crohn's Disease, Hx Diverticulosis History: Denies: Hx Dialysis, Hx Renal Disease Musculoskeletal History: Denies: Hx Arthritis, Hx Rheumatoid Arthritis, Hx Osteoporosis Sensory History: Reports: Hx Contacts or Glasses Denies: Hx Glaucoma, Hx Deafness, Hx Hearing Aid, Hx Hearing Problem Opthamlomology History: Reports: Hx Contacts or Glasses Denies: Hx Glaucoma Neurological History: Denies: Hx Headaches, Hx Seizures, Hx Transient Ischemic Attacks (TIA) Psychiatric History: Reports: Hx Anxiety, Hx Depression, Hx Inpatient Treatment , Hx Community Mental Health Tx, Hx Schizophrenia, Hx Bipolar Disorder, Hx Suicide Attempt Denies: Hx Eating Disorder, Hx Panic Disorder, Hx of Violent Episodes Against Others - Cancer History Hx Chemotherapy: No - Surgical History Surgery Procedure, Year, and Place: bilat thumb repairs, hernia repairs X 2, cholecystectomy, appendectomy Hx Anesthesia Reactions: No - Immunization History Date of Tetanus Vaccine: UTD Date of Influenza Vaccine: UTD Infectious Disease History: Denies: Hx Clostridium Difficile, Hx Hepatitis, Hx Human Immunodeficiency Virus (HIV), Hx of Known/Suspected MRSA, Hx Shingles, Hx Tuberculosis, Traveled Outside the [place] in Last 30 Days - Family History Known Family History: Positive: Cardiac Disease - [place] Negative: Hypertension, Diabetes - Social History Alcohol Use: Rare Hx Substance Use: No Substance Use Type: Reports: None Hx Tobacco Use: Yes Smoking Status (MU): Heavy Every Day Tobacco Smoker Type: Cigarettes Amount Used/How Often: half a pack a day Have You Smoked in the Last Year: Yes Review of Systems Positive: Chest Pain Positive: Shortness Of Breath, Cough - nonproductive All Other Systems Reviewed And Are Negative: Yes Physical Exam Triage Information Reviewed: Yes Vital Signs Reviewed: Yes Appearance: Positive: Well-Appearing - mild sob Skin: Positive: Warm Head/Face: Positive: Normal Head/Face Inspection Eyes: Positive: CRISTIAN ENT: Positive: Hearing grossly normal Neck: Positive: Supple Respiratory/Lung Sounds: Positive: Clear to Auscultation, Decreased Breath Sounds. Negative: Wheezes Cardiovascular: Positive: RRR Abdomen Description: Positive: Nontender, Soft Bowel Sounds: Positive: Present Musculoskeletal: Positive: Strength/ROM Intact Neurological: Positive: Alert, Oriented to Person Place, Time Psychiatric: Positive: Affect/Mood Appropriate Diagnostics - Laboratory Result Diagrams: 05/11/17 22:18 05/11/17 22:18 Lab Statement: Any lab studies that have been ordered have been reviewed, and results considered in the medical decision making process. - Radiology CXR Xray Interpretation: No Acute Changes - No active cardiopulmonary disease is noted. ED physician reviewed this radiology report and agrees. Radiology Interpretation Completed By: Radiologist - EKG 2056 Cardiac Rate: NL - 85 bpm EKG Rhythm: Sinus Rhythm EKG Interpretation: Old inferior wall [place] Re-Evaluation - Re-Evaluation First Eval Re-Evaluation Time: 00:10 Change: Improved Comment: Pt's sx have improved. Chest Pain Course/Dx - Course Assessment/Plan: Pt is a 61 y/o F BIBA who presents to ED c/o midsternal CP since 1930 todya that is currently severe, ranked 8/10. 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 Pt cannot think of any catalysts that triggered sx today , sx unchanged by deep breaths. Additionally c/o SOB and nonproductive cough. Confirms feeling well prior to onset of sx today. Uses 2L Os per Os at home at night. Pt was D/C from [facility] 1 week ago for similar presentation of symptoms. CXR reveals no active cardiopulmonary disease. EKG is sinus rhythm with an old inferior wall [place]. In the ED course, pt was given Duoneb and Solu-Medrol which improved sx. Pt will be D/C to home with Dx of COPD exacerbation and a follow up with her PCP. She understands and agrees. - Diagnoses Provider Diagnoses: COPD exacerbation Discharge - Discharge Plan Condition: Improved Disposition: HOME Patient Education Materials: COPD (Chronic Obstructive Pulmonary Disease) (ED) Referrals: Tom Schrader MD [Primary Care Provider] - 3 Days The documentation as recorded by the Ramesh kiran Rebecca accurately reflects the service I personally performed and the decisions made by me, Cristopher Hernandes MD.
[2017-05-12 00:47] VITALS: BP 130/53
== END 2017-05-12 00:49 | disposition home or self-care (01) ==
LOC: ED 20:39
DX: J44.1 Chronic obstructive pulmonary disease with (acute) exacerbation (principal)
CPT/HCPCS: 36415; 71020; 80053; 83605; 84484; 85025; 87040; 93005; 99283; A9270-GY; J2930

== ENCOUNTER 2017-05-12 22:32 | Emergency (ER) | payer MEDICARE, MEDICAID ==
[2017-05-12] MEDS ORDERED: Albuterol/Ipratropium NEB.SOL* Albuterol 2.5 MG/Ipratropium 0.5 MG 3 ML INH ONE (22:50)
[2017-05-12] MEDS ORDERED: methylPREDNISolone 125 MG* 2 ML VIAL IV ONE (22:50)
--- NOTE | 2017-05-12 23:17 | ED ---
Ramesh Laboy Rebecca, scribed for Cristopher Hernandes MD on 05/12/17 at 2253 . Shortness of Breath - HPI Summary HPI Summary: Pt is a 61 y/o F BIBA who presents to ED c/o SOB with CP. Sx began suddenly at 2030 tonight and have been constant since onset. SOB is characterized as dyspnea at rest. Pain was initially 9/10 and after NTG, it is now moderate, ranked 5/10. FUDGER, pt was given ASA, NTG and placed on O2 by EMS. Sx aggravated by nothing, alleviated by O2, NTG. Uses 2L O2 per Os at home. Pt was evaluated by [facility] yesterday for similar sx. - History of Current Complaint Chief Complaint: EDChestPainROMI Time Seen by Provider: 05/12/17 22:43 Hx Obtained From: Patient Onset/Duration: Sudden Onset, Lasting Hours, Still Present Timing: Constant Dyspnea At: Rest Aggrevating Factors: Nothing Alleviating Factors: EMS Tx Associated Signs & Symptoms: Chest Pain Unrelated to Cough - Allergy/Home Medications Allergies/Adverse Reactions: Allergies Allergy/AdvReac Type Severity Reaction Status Date / Time Bupropion [From Wellbutrin] Allergy Severe Agitation Verified 05/11/17 22:17 Cephalosporins Allergy Severe Agitation Verified 05/11/17 22:17 Penicillins [PCN] Allergy Intermediate Hives Verified 05/11/17 22:17 Chlorpromazine AdvReac Severe Diarrhea Verified 05/11/17 22:17 Erythromycin AdvReac Intermediate Diarrhea Verified 05/11/17 22:17 Tobramycin AdvReac Intermediate Diarrhea Verified 05/11/17 22:17 PMH/Surg Hx/FS Hx/Imm Hx Endocrine/Hematology History: Reports: Hx Anticoagulant Therapy, Other Endocrine /Hematological Disorders - L leg DVT Denies: Hx Diabetes, Hx Systemic Lupus Erythematosus, Hx Thyroid Disease Cardiovascular History: Reports: Hx Angina, Hx Coronary Artery Disease, Hx Deep Vein Thrombosis, Hx Hypercholesterolemia, Hx Hypertension, Hx Peripheral Vascular Disease, Other Cardiovascular Problems/Disorders - PERIPHERAL ARTERY DISEASE; CAD; DVT Denies: Hx Congestive Heart Failure, Hx Pacemaker/ICD Respiratory History: Reports: Hx Asthma, Hx Chronic Bronchitis, Hx Chronic Obstructive Pulmonary Disease (COPD), Hx Pneumonia, Hx Seasonal Allergies, Other Respiratory Problems/Disorders - PNA Denies: Hx Cystic Fibrosis, Hx Lung Cancer, Hx Pleural Effusion, Hx Pulmonary Edema, Hx Pulmonary Embolism, Hx Sleep Apnea GI History: Reports: Hx Gall Bladder Disease - removed, Hx Gastroesophageal Reflux Disease, Hx Irritable Bowel, Other GI Disorders - hernia repair X 2 Denies: Hx Cirrhosis, Hx Crohn's Disease, Hx Diverticulosis History: Denies: Hx Dialysis, Hx Renal Disease Musculoskeletal History: Denies: Hx Arthritis, Hx Rheumatoid Arthritis, Hx Osteoporosis Sensory History: Reports: Hx Contacts or Glasses Denies: Hx Glaucoma, Hx Deafness, Hx Hearing Aid, Hx Hearing Problem Opthamlomology History: Reports: Hx Contacts or Glasses Denies: Hx Glaucoma Neurological History: Denies: Hx Headaches, Hx Seizures, Hx Transient Ischemic Attacks (TIA) Psychiatric History: Reports: Hx Anxiety, Hx Depression, Hx Inpatient Treatment , Hx Community Mental Health Tx, Hx Schizophrenia, Hx Bipolar Disorder, Hx Suicide Attempt Denies: Hx Eating Disorder, Hx Panic Disorder, Hx of Violent Episodes Against Others - Cancer History Hx Chemotherapy: No - Surgical History Surgery Procedure, Year, and Place: bilat thumb repairs, hernia repairs X 2, cholecystectomy, appendectomy Hx Anesthesia Reactions: No - Immunization History Date of Tetanus Vaccine: UTD Date of Influenza Vaccine: UTD Infectious Disease History: Yes Infectious Disease History: Denies: Hx Clostridium Difficile, Hx Hepatitis, Hx Human Immunodeficiency Virus (HIV), Hx of Known/Suspected MRSA, Hx Shingles, Hx Tuberculosis, Traveled Outside the [place] in Last 30 Days - Family History Known Family History: Positive: Cardiac Disease - [place], Other - schizophrenia, anxiety Negative: Hypertension, Diabetes - Social History Alcohol Use: Rare Hx Substance Use: No Substance Use Type: Reports: None Hx Tobacco Use: Yes Smoking Status (MU): Heavy Every Day Tobacco Smoker Type: Cigarettes Amount Used/How Often: half a pack a day Have You Smoked in the Last Year: Yes Review of Systems Positive: Chest Pain Positive: Shortness Of Breath All Other Systems Reviewed And Are Negative: Yes Physical Exam Triage Information Reviewed: Yes Vital Signs On Initial Exam: Initial Vitals Temp Pulse Resp BP Pulse Ox 97.6 F 81 33 121/61 98 05/12/17 22:38 05/12/17 22:38 05/12/17 22:38 05/12/17 22:38 05/12/17 22:38 Vital Signs Reviewed: Yes Appearance: Positive: Well-Appearing, Pain Distress - mild sob Skin: Positive: Warm Head/Face: Positive: Normal Head/Face Inspection Eyes: Positive: CRISTIAN ENT: Positive: Hearing grossly normal Neck: Positive: Supple Respiratory/Lung Sounds: Positive: Decreased Breath Sounds Cardiovascular: Positive: RRR Abdomen Description: Positive: Nontender, Soft Bowel Sounds: Positive: Present Musculoskeletal: Positive: Strength/ROM Intact - Callie Coma Scale Coma Scale Total: 15 Diagnostics - Vital Signs Vital Signs Temp Pulse Resp BP Pulse Ox 05/12/17 22:38 97.6 F 81 33 121/61 98 - Laboratory Result Diagrams: 05/12/17 23:15 05/12/17 23:48 Lab Statement: Any lab studies that have been ordered have been reviewed, and results considered in the medical decision making process. - Radiology CXR Xray Interpretation: No Acute Changes Radiology Interpretation Completed By: ED Physician - EKG 2354 Cardiac Rate: NL - 65 bpm EKG Rhythm: Sinus Rhythm EKG Interpretation: No acute changes Re-Evaluation - Re-Evaluation First Eval Change: Improved Course/Dx - Course Assessment/Plan: Pt is a 61 y/o F BIBA who presents to ED c/o SOB with CP. Sx began suddenly at 2030 tonight and have been constant since onset. SOB is characterized as dyspnea at rest. Pain was initially 9/10 and after NTG, it is now moderate, ranked 5/10. FUDGER, pt was given ASA, NTG and placed on O2 by EMS. Sx aggravated by nothing, alleviated by O2, NTG. Uses 2L O2 per Os at home. Pt was evaluated by [facility] yesterday for similar sx. CXR is consistent with COPD. EKG is sinus rhythm. Blood work was done. In the ED course, pt was given 2 Duonebs and prednisone. Pt will be D/C to home with Dx of COPD exacerbation. She understands and agrees. - Diagnoses Provider Diagnoses: COPD exacerbation Discharge - Discharge Plan Condition: Improved Disposition: HOME Patient Education Materials: COPD (Chronic Obstructive Pulmonary Disease) (ED) Referrals: Tom Schrader MD [Primary Care Provider] - 3 Days The documentation as recorded by the Ramesh kiran Rebecca accurately reflects the service I personally performed and the decisions made by me, Cristopher Hernandes MD.
[2017-05-12 23:28] LABS: Hematocrit 38 % (35-47); Hemoglobin 12.2 g/dl (12.0-16.0); Mean Corpuscular HGB Conc 32 g/dl (31-36); Mean Corpuscular Hemoglobin 28 pg (27-31); Mean Corpuscular Volume 86 fL (80-97); Mean Platelet Volume 9 um3 (7.4-10.4); Red Blood Count 4.46 10^6/ul (4.0-5.4); Red Cell Distribution Width 16 % (10.5-15); White Blood Count 13.2 10^3/ul (3.5-10.8)
[2017-05-12 23:39] LABS: ALT 12 U/L (7-52); Albumin 3.5 g/dL (3.2-5.2); Alkaline Phosphatase 53 U/L (34-104); BUN/Creatinine Ratio 22.5 (8-20); Blood Urea Nitrogen 20 mg/dL (6-24); CO2 Carbon Dioxide 30 mmol/L (22-32); Calcium 9.5 mg/dL (8.6-10.3); Chloride 107 mmol/L (101-111); EGFR African American 83.5 (>60); EGFR Non-African American 64.9 (>60); Globulin 2.2 g/dL (2-4); Glucose 98 mg/dL (70-100); Sodium 138 mmol/L (133-145); Total Protein 5.7 g/dL (6.4-8.9)
[2017-05-12 23:40] LABS: Anion Gap 1 mmol/L (2-11)
[2017-05-13] MEDS ORDERED: Nicotine Inhaler* 10 MG AMP ONE (00:36)
[2017-05-13] MEDS ORDERED: Mouth Piece, Nicotine* 1 EACH CARTRIDGE ONE (00:36)
[2017-05-13] MEDS ORDERED: Nicotine Inhaler* 10 MG AMP INH PRN (00:45)
[2017-05-13] MEDS ORDERED: Mouth Piece, Nicotine* 1 EACH CARTRIDGE INH PRN (00:45)
[2017-05-13] MEDS ORDERED: Mouth Piece, Nicotine* 1 EACH CARTRIDGE INH ONE (00:45)
[2017-05-13] MEDS ORDERED: Albuterol/Ipratropium NEB.SOL* Albuterol 2.5 MG/Ipratropium 0.5 MG 3 ML INH ONE (02:04)
[2017-05-13 03:16] VITALS: BP 138/51
--- NOTE | 2017-05-13 07:21 | RAD ---
INDICATION: Shortness of breath. COMPARISON: Comparison is made with a prior chest x-ray study from May 11, 2017. TECHNIQUE: Dual-energy PA and lateral views of the chest were obtained. FINDINGS: The heart is within normal limits in size. Mediastinal and hilar contours appear within normal limits. The lungs are clear. No pleural effusion is present. IMPRESSION: NO EVIDENCE FOR ACTIVE CARDIOPULMONARY DISEASE.
== END 2017-05-13 03:14 | disposition home or self-care (01) ==
LOC: ED 22:32
DX: J44.1 Chronic obstructive pulmonary disease with (acute) exacerbation (principal); R07.9 Chest pain, unspecified; R05 Cough; Z79.01 Long term (current) use of anticoagulants; F17.210 Nicotine dependence, cigarettes, uncomplicated
CPT/HCPCS: 36415; 71020; 80053; 85025; 93005; 94640; 96374; 99283; A9270-GY; J2930

== ENCOUNTER 2017-05-14 07:37 | Inpatient (IN) | payer MEDICARE, MEDICAID ==
[2017-05-14] MEDS ORDERED: methylPREDNISolone 125 MG* 2 ML VIAL IV ONE (08:02)
[2017-05-14] MEDS ORDERED: Aspirin Low Dose CHEW TAB* 81 MG PO ONE (08:02)
[2017-05-14] MEDS ORDERED: Albuterol/Ipratropium NEB.SOL* Albuterol 2.5 MG/Ipratropium 0.5 MG 3 ML INH ONE (08:02)
[2017-05-14] MEDS ORDERED: Nitroglycerin 2% OINT* 1 GM PAK TOPICAL ONE (08:05)
[2017-05-14] MEDS ORDERED: Albuterol/Ipratropium NEB.SOL* Albuterol 2.5 MG/Ipratropium 0.5 MG 3 ML ONE (08:22)
--- NOTE | 2017-05-14 08:35 | RAD ---
Indication: Chest pain, coronary artery disease. COPD. Comparison: May 12, 2017 chest radiograph and December 30, 2015 CT. Technique: Upright AP 0805 hours Report: Mildly elevated lung volumes and both diffuse mild prominence of the interstitial markings and patchy rarefaction of the mid to upper lung zone interstitial markings. IMPRESSION: Stigmata of obstructive lung disease. No acute pulmonary or cardiac process evident.
[2017-05-14 08:44] LABS: Hematocrit 39 % (35-47); Hemoglobin 12.3 g/dl (12.0-16.0); Mean Corpuscular HGB Conc 32 g/dl (31-36); Mean Corpuscular Hemoglobin 27 pg (27-31); Mean Corpuscular Volume 86 fL (80-97); Mean Platelet Volume 9 um3 (7.4-10.4); Red Blood Count 4.53 10^6/ul (4.0-5.4); Red Cell Distribution Width 17 % (10.5-15); White Blood Count 11.1 10^3/ul (3.5-10.8)
[2017-05-14 08:58] LABS: Albumin 3.4 g/dL (3.2-5.2); BUN/Creatinine Ratio 21.6 (8-20); Calcium 9.1 mg/dL (8.6-10.3); EGFR African American 75.6 (>60); EGFR Non-African American 58.8 (>60); Globulin 2.1 g/dL (2-4); Potassium 3.8 mmol/L (3.5-5.0); Total Bilirubin 0.5 mg/dL (0.2-1.0); Total Protein 5.5 g/dL (6.4-8.9)
--- NOTE | 2017-05-14 10:52 | ED ---
De Laboy Angela, scribed for Juan Cooney on 05/14/17 at 0812 . HPI Chest Pain - HPI Summary HPI Summary: This pt is a 61 y/o BIBA presenting to [facility] c/o chest pain while she was walking to her friend's house. Pt reports her chest pain radiates to her back, jaw, and arm. She notes having a non-productive cough secondary to PMHx: COPD. Pt endorses some SOB. Pt notes she uses 2 L of oxygen at home every night. Per EMS, she was given 2 nitroglycerin en route to the ED. Pt denies abd pain, weakness or numbness in LE, LE pain, headache. She is a current smoker but denies alcohol or drugs. PMHx: stent in legs, HTN, emphysema, asthma, schizophrenia, seizure. Her last chemical stress test was 1 year ago. No PMHx of heart attacks. - History of Current Complaint Chief Complaint: EDChestWallPain Time Seen by Provider: 05/14/17 07:48 Hx Obtained From: Patient Onset/Duration: Started Hours Ago Timing: Lasting Hours Pain Intensity: 7 Pain Scale Used: 0-10 Numeric Chest Pain Location: Mid Sternal Character: Cough, Non-Productive Aggravating Factor(s): Exertion Alleviating Factor(s): EMS Tx - nitroglycerin x2 Associated Signs and Symptoms: Positive: Chest Pain, Shortness of Breath, Nonproductive Cough. Negative: Headaches, Numbness, Tingling, Weakness, Lightheadedness, Abdominal Pain, Calf Pain/Swelling - Additional Pertinent History Primary Care Physician: MANDY - Allergy/Home Medications Allergies/Adverse Reactions: Allergies Allergy/AdvReac Type Severity Reaction Status Date / Time Bupropion [From Wellbutrin] Allergy Severe Agitation Verified 05/11/17 22:17 Cephalosporins Allergy Severe Agitation Verified 05/11/17 22:17 Penicillins [PCN] Allergy Intermediate Hives Verified 05/11/17 22:17 Chlorpromazine AdvReac Severe Diarrhea Verified 05/11/17 22:17 Erythromycin AdvReac Intermediate Diarrhea Verified 05/11/17 22:17 Tobramycin AdvReac Intermediate Diarrhea Verified 05/11/17 22:17 PMH/Surg Hx/FS Hx/Imm Hx Endocrine/Hematology History: Reports: Hx Anticoagulant Therapy, Other Endocrine /Hematological Disorders - L leg DVT Denies: Hx Diabetes, Hx Systemic Lupus Erythematosus, Hx Thyroid Disease Cardiovascular History: Reports: Hx Angina, Hx Coronary Artery Disease, Hx Deep Vein Thrombosis, Hx Hypercholesterolemia, Hx Hypertension, Hx Peripheral Vascular Disease, Other Cardiovascular Problems/Disorders - PERIPHERAL ARTERY DISEASE; CAD; DVT Denies: Hx Congestive Heart Failure, Hx Pacemaker/ICD Respiratory History: Reports: Hx Asthma, Hx Chronic Bronchitis, Hx Chronic Obstructive Pulmonary Disease (COPD), Hx Pneumonia, Hx Seasonal Allergies, Other Respiratory Problems/Disorders - PNA Denies: Hx Cystic Fibrosis, Hx Lung Cancer, Hx Pleural Effusion, Hx Pulmonary Edema, Hx Pulmonary Embolism, Hx Sleep Apnea GI History: Reports: Hx Gall Bladder Disease - removed, Hx Gastroesophageal Reflux Disease, Hx Irritable Bowel, Other GI Disorders - hernia repair X 2 Denies: Hx Cirrhosis, Hx Crohn's Disease, Hx Diverticulosis History: Denies: Hx Dialysis, Hx Renal Disease Musculoskeletal History: Denies: Hx Arthritis, Hx Rheumatoid Arthritis, Hx Osteoporosis Sensory History: Reports: Hx Contacts or Glasses Denies: Hx Glaucoma, Hx Deafness, Hx Hearing Aid, Hx Hearing Problem Opthamlomology History: Reports: Hx Contacts or Glasses Denies: Hx Glaucoma Neurological History: Denies: Hx Headaches, Hx Seizures, Hx Transient Ischemic Attacks (TIA) Psychiatric History: Reports: Hx Anxiety, Hx Depression, Hx Inpatient Treatment , Hx Community Mental Health Tx, Hx Schizophrenia, Hx Bipolar Disorder, Hx Suicide Attempt Denies: Hx Eating Disorder, Hx Panic Disorder, Hx of Violent Episodes Against Others - Cancer History Hx Chemotherapy: No - Surgical History Surgery Procedure, Year, and Place: bilat thumb repairs, hernia repairs X 2, cholecystectomy, appendectomy Hx Anesthesia Reactions: No - Immunization History Date of Tetanus Vaccine: UTD Date of Influenza Vaccine: UTD Infectious Disease History: No Infectious Disease History: Denies: Hx Clostridium Difficile, Hx Hepatitis, Hx Human Immunodeficiency Virus (HIV), Hx of Known/Suspected MRSA, Hx Shingles, Hx Tuberculosis, Traveled Outside the [place] in Last 30 Days - Family History Known Family History: Positive: None, Cardiac Disease - [place], Other - schizophrenia, anxiety Negative: Hypertension, Diabetes Family History: Negative HTN/Cardiac/DM per EMR - Social History Alcohol Use: Rare Hx Substance Use: No Substance Use Type: Reports: None Hx Tobacco Use: Yes Smoking Status (MU): Heavy Every Day Tobacco Smoker Type: Cigarettes Amount Used/How Often: half a pack a day Have You Smoked in the Last Year: Yes Review of Systems Negative: Fever, Chills Eyes: Negative ENT: Negative Positive: Chest Pain Positive: Shortness Of Breath, Cough - non productive Negative: Abdominal Pain Genitourinary: Negative Musculoskeletal: Negative Negative: Edema Negative: Headache, Weakness, Numbness All Other Systems Reviewed And Are Negative: Yes Physical Exam Triage Information Reviewed: Yes Vital Signs On Initial Exam: Initial Vitals Temp Pulse Resp BP Pulse Ox 98.1 F 84 36 121/60 93 05/14/17 07:38 05/14/17 07:38 05/14/17 07:38 05/14/17 07:38 05/14/17 07:38 Vital Signs Reviewed: Yes Appearance: Positive: Well-Appearing, No Pain Distress Skin: Positive: Warm, Skin Color Reflects Adequate Perfusion, Dry Head/Face: Positive: Normal Head/Face Inspection Eyes: Positive: EOMI, CRISTIAN ENT: Positive: Normal ENT inspection Neck: Positive: Supple, Nontender Respiratory/Lung Sounds: Positive: Breath Sounds Present, Other - Bilateral wheezing Cardiovascular: Positive: RRR, Pulses are Symmetrical in both Upper and Lower Extremities Abdomen Description: Positive: Nontender, Soft Bowel Sounds: Positive: Present Musculoskeletal: Positive: Normal, Strength/ROM Intact Neurological: Positive: Normal, Sensory/Motor Intact, Alert, Oriented to Person Place, Time - Callie Coma Scale Coma Scale Total: 15 Diagnostics - Vital Signs Vital Signs Temp Pulse Resp BP Pulse Ox 05/14/17 07:38 98.1 F 84 36 121/60 93 - Laboratory Lab Results: Lab Results 05/14/17 05/14/17 05/14/17 Range/Units 08:00 08:00 08:00 WBC 11.1 H (3.5-10.8) 10^3/ul RBC 4.53 (4.0-5.4) 10^6/ul Hgb 12.3 (12.0-16.0) g/dl Hct 39 (35-47) % MCV 86 (80-97) fL MCH 27 (27-31) pg MCHC 32 (31-36) g/dl RDW 17 H (10.5-15) % Plt Count 142 L (150-450) 10^3/ul MPV 9 (7.4-10.4) um3 Neut % (Auto) 83.8 H (38-83) % Lymph % (Auto) 9.6 L (25-47) % Gaston % (Auto) 5.2 (1-9) % Eos % (Auto) 1.3 (0-6) % Baso % (Auto) 0.1 (0-2) % Absolute Neuts (auto) 9.3 H (1.5-7.7) 10^3/ul Absolute Lymphs (auto) 1.1 (1.0-4.8) 10^3/ul Absolute Monos (auto) 0.6 (0-0.8) 10^3/ul Absolute Eos (auto) 0.1 (0-0.6) 10^3/ul Absolute Basos (auto) 0 (0-0.2) 10^3/ul Absolute Nucleated RBC 0 10^3/ul Nucleated RBC % 0 INR (Anticoag Therapy) 1.93 H (0.89-1.11) APTT 30.1 (26.0-36.3) seconds Sodium (133-145) mmol/L Potassium (3.5-5.0) mmol/L Chloride (101-111) mmol/L Carbon Dioxide (22-32) mmol/L Anion Gap (2-11) mmol/L BUN (6-24) mg/dL Creatinine (0.51-0.95) mg/dL Est GFR ( Amer) (>60) Est GFR (Non-Af Amer) (>60) BUN/Creatinine Ratio (8-20) Glucose (70-100) mg/dL Lactic Acid (0.5-2.0) mmol/L Calcium (8.6-10.3) mg/dL Total Bilirubin (0.2-1.0) mg/dL AST (13-39) U/L ALT (7-52) U/L Alkaline Phosphatase (34-104) U/L Troponin I (<0.04) ng/mL B-Natriuretic Peptide 94 ( - 100) pg/mL Total Protein (6.4-8.9) g/dL Albumin (3.2-5.2) g/dL Globulin (2-4) g/dL Albumin/Globulin Ratio (1-3) 05/14/17 05/14/17 Range/Units 08:00 08:00 WBC (3.5-10.8) 10^3/ul RBC (4.0-5.4) 10^6/ul Hgb (12.0-16.0) g/dl Hct (35-47) % MCV (80-97) fL MCH (27-31) pg MCHC (31-36) g/dl RDW (10.5-15) % Plt Count (150-450) 10^3/ul MPV (7.4-10.4) um3 Neut % (Auto) (38-83) % Lymph % (Auto) (25-47) % Gaston % (Auto) (1-9) % Eos % (Auto) (0-6) % Baso % (Auto) (0-2) % Absolute Neuts (auto) (1.5-7.7) 10^3/ul Absolute Lymphs (auto) (1.0-4.8) 10^3/ul Absolute Monos (auto) (0-0.8) 10^3/ul Absolute Eos (auto) (0-0.6) 10^3/ul Absolute Basos (auto) (0-0.2) 10^3/ul Absolute Nucleated RBC 10^3/ul Nucleated RBC % INR (Anticoag Therapy) (0.89-1.11) APTT (26.0-36.3) seconds Sodium 136 (133-145) mmol/L Potassium 3.8 (3.5-5.0) mmol/L Chloride 106 (101-111) mmol/L Carbon Dioxide 28 (22-32) mmol/L Anion Gap 2 (2-11) mmol/L BUN 21 (6-24) mg/dL Creatinine 0.97 H (0.51-0.95) mg/dL Est GFR ( Amer) 75.6 (>60) Est GFR (Non-Af Amer) 58.8 (>60) BUN/Creatinine Ratio 21.6 H (8-20) Glucose 101 H (70-100) mg/dL Lactic Acid 1.5 (0.5-2.0) mmol/L Calcium 9.1 (8.6-10.3) mg/dL Total Bilirubin 0.50 (0.2-1.0) mg/dL AST 11 L (13-39) U/L ALT 13 (7-52) U/L Alkaline Phosphatase 56 (34-104) U/L Troponin I 0.00 (<0.04) ng/mL B-Natriuretic Peptide ( - 100) pg/mL Total Protein 5.5 L (6.4-8.9) g/dL Albumin 3.4 (3.2-5.2) g/dL Globulin 2.1 (2-4) g/dL Albumin/Globulin Ratio 1.6 (1-3) Result Diagrams: 05/14/17 08:00 05/14/17 08:00 Lab Statement: Any lab studies that have been ordered have been reviewed, and results considered in the medical decision making process. - Radiology Chest XR Xray Interpretation: Positive (See Comments) - IMPRESSION: Stigmata of obstructive lung disease. No acute pulmonary or cardiac process evident. ED physician has reviewed this radiology report and agrees. Radiology Interpretation Completed By: Radiologist - EKG 0744 Cardiac Rate: NL - 77 bpm EKG Rhythm: Sinus Rhythm EKG Interpretation: No acute changes Chest Pain Course/Dx - Course Assessment/Plan: This pt is a 61 y/o BIBA presenting to [facility] c/o chest pain while she was walking to her friend's house. She notes having a non-productive cough secondary to PMHx: COPD. Pt endorses some SOB. Bloodwork, chest XR, and EKG were obtained. Pt will be admitted by Dr. Martinez with a diagnosis of chest pain to rule out ACS. - Diagnoses Provider Diagnoses: Chest pain, COPD (chronic obstructive pulmonary disease) - Provider Notifications Discussed Care Of Patient With: Niya Martinez Time Discussed With Above Provider: 10:30 Instructed by Provider To: Other - I discussed the pt's case with Dr. Martinez. She has agreed to admit the pt. Discharge - Discharge Plan Condition: Stable Disposition: ADMITTED TO [facility] Referrals: Tom Schrader MD [Primary Care Provider] - The documentation as recorded by the De kiran Angela accurately reflects the service I personally performed and the decisions made by , Juan Cooney.
[2017-05-14] MEDS ORDERED: Albuterol HFA INHALER* 8 gm MDI INH PRN (11:17)
[2017-05-14] MEDS ORDERED: Al Hydrox/Mg Hydrox/Simet LIQ* 30 ML UDC PO PRN (11:17)
[2017-05-14] MEDS ORDERED: oxyCODONE/Acetamin 5/325 MG* TAB PO PRN (11:17)
[2017-05-14] MEDS ORDERED: Albuterol 2.5 MG/3 ML NEB.SOL* (0.083%) INH PRN (11:17)
[2017-05-14] MEDS ORDERED: Mouth Piece, Nicotine* 1 EACH CARTRIDGE INH ONE (12:00)
[2017-05-14] MEDS ORDERED: Albuterol/Ipratropium NEB.SOL* Albuterol 2.5 MG/Ipratropium 0.5 MG 3 ML INH SCH (12:00)
[2017-05-14] MEDS: Nicotine Inhaler* 10 MG AMP INH PRN ×3 (12:48→20:01)
[2017-05-14] MEDS: methylPREDNISolone SOD 40 MG* 1 ML VIAL IV SCH ×2 (13:22→20:01)
[2017-05-14] MEDS: Levofloxacin 750 MG IVPREMIX(* 750 MG/150 ML BAG IVPB SCH (13:25)
[2017-05-14] MEDS: Albuterol/Ipratropium NEB.SOL* Albuterol 2.5 MG/Ipratropium 0.5 MG 3 ML INH SCH ×3 (14:56→23:37)
--- NOTE | 2017-05-14 15:29 | HP ---
CC: Dr. Schrader HISTORY AND PHYSICAL: DATE OF ADMISSION: 05/14/17 PRIMARY CARE PROVIDER: Dr. Schrader. TIME SEEN: 11 a.m. CHIEF COMPLAINT: Chest pain and shortness of breath. HISTORY OF PRESENT ILLNESS: Ms. Camejo is a 61-year-old lady who has a past medical history of CO PD, hypertension, hyperlipidemia, DVT, IBS, bipolar disorder, schizophrenia, anxiety, depression, pe ripheral vascular disease, tobacco abuse that presents to the emergency room with complaints of ches t pain and shortness of breath. She was admitted to [facility] [place] from 05/01/17 to 05/04/17 with COPD exacerbation and chest pain. She was tr eated with steroids, azithromycin, bronchodilators with improvement. She was discharged home on a p rednisone taper and she states that initially she was feeling well, but a couple of days after disch arge, she started to have the same symptoms again. She was actually seen in the emergency room on 0 05/11/17 and 05/12/17 with similar complaints. The patient states that on her first day at home, she did not smoke but shortly after that she started to smoke again "a couple of cigarettes a day." She states that today, even using her medications at home, the shortness of breath got worse and she decided to come to the emergency room for further evaluation. She describes the chest pain as mid s ternal, radiating to the left side of her chest, 10/10 intensity, worse with coughing. She denies fever, chills, nausea, vomiting or other complaints. PAST MEDICAL HISTORY: 1. COPD, on 2 L of oxygen at night only. 2. Tobacco abuse. 3. Hypertension. 4. Hyperlipidemia. 5. DVT. 6. Irritable bowel syndrome. 7. Bipolar disorder. 8. Schizophrenia. 9. Anxiety. 10. Depression. 11. Peripheral vascular disease, status post stent to the right lower extremity. 12. History of small anterior wall reversible defect on a stress test in January 2016. PAST SURGICAL HISTORY: 1. Status post appendectomy. 2. Status post hernia repair. MEDICATIONS: 1. Maalox Plus 30 mL p.o. daily p.r.n. indigestion. 2. Albuterol 2.5 inhaled q.2 hours p.r.n. shortness of breath. 3. Albuterol HFA 2 puffs inhaled q.4 hours p.r.n. shortness of breath. 4. Nexium 40 mg p.o. daily. 5. Breo Ellipta 100/25 one puff inhaled daily. 6. Gabapentin 800 mg p.o. b.i.d. 7. Imdur 30 mg p.o. daily. 8. [place] carbonate 300 mg p.o. b.i.d. 9. Metoprolol tartrate 25 mg p.o. b.i.d. 10. Mirtazapine 7.5 mg p.o. at bedtime. 11. Montelukast 10 mg p.o. daily. 12. Nicotine inhaler 10 mg inhaled q.2 hours p.r.n. cravings. 13. Olanzapine 30 mg p.o. q.p.m. 14. Percocet 5/325 mg 1 tablet p.o. q.6 hours p.r.n. pain. 15. Warfarin 2 mg p.o. daily. ALLERGIES: The patient had seizures with BUPROPION and CEPHALOSPORINS. She had hives with PENICILL IN. Diarrhea and hives with CHLORPROMAZINE. Diarrhea with ERYTHROMYCIN and diarrhea with TOBRAMYCI N. FAMILY HISTORY: Mother has a history of COPD, father had a history of heart attack. SOCIAL HISTORY: The patient is a longstanding smoker since her teenage years, up to a pack a day. She states that nowadays she smokes between "couple of cigarettes a day." Last cigarette was a coup le of days ago. She denies alcohol or drug use. Surrogate decision maker is her son, Maikel nelson. Phone number is [phone]. PHYSICAL EXAMINATION GENERAL: Patient is a pleasant middle aged lady sitting up in bed in no acute distress, appears old er than stated age. VITAL SIGNS: Temperature 98.1, heart rate is 88, respiratory rate is 16, oxygen saturation is 99% o n 2 L nasal cannula, blood pressure is 123/40. HEENT: Pupils are equal. Moist mucous membranes. CVS: Normal S1 and S2. Regular rate and rhythm, tachycardic. CHEST: Breath sounds present bilaterally with diffuse wheezing and rhonchi. Her chest pain is repr oducible with palpation of the anterior chest wall. ABDOMEN: Obese, soft, nontender, nondistended. Bowel sounds are present. EXTREMITIES: No edema. NEUROLOGIC: She is alert and oriented x3. She is able to move all 4 extremities. LABORATORY AND IMAGING DATA: The patient had a CBC that showed a WBC of 11.1, hemoglobin of 12.3, hematocrit of 39, platelet of 142,000 with 83% neutrophils. INR was 1.93. Chemistry showed a sodium of 136, potassium 3.8, chloride of 106, bicarb of 28, BUN of 21, creatinine of 0.97, glucose of 101 , calcium of 9.1, lactic acid of 1.5. LFTs were normal. Troponin was 0. Chest x-ray showed stigmata of obstructive lung disease, but no acute pulmonary or cardiac process e vident. EKG done 05/14/17 at 7:44 a.m. showed sinus rhythm at 77 beats per minute with no ST-T changes. No significant change when compared to her prior EKG from 05/12/17. ASSESSMENT AND PLAN: Ms. Camejo is a 61-year-old lady with past medical history of chronic obstru ctive pulmonary disease, hypertension, hyperlipidemia, deep venous thrombosis, irritable bowel syndr ome, bipolar disorder, schizophrenia, anxiety, depression, peripheral vascular disease that presente d to the emergency room with complaints of chest pain and shortness of breath, found to have chronic obstructive pulmonary disease exacerbation. 1. Acute chronic obstructive pulmonary disease exacerbation. I believe this is likely secondary to bronchitis and to the patient's insistence on cigarette smokin g. She was educated that if she continues to smoke, even if it is "just a couple of cigarettes a da y" she will . She verbalizes understanding and requests to have a nicotine inhaler at this time. The patient will be admitted to telemetry floor. She is going to be treated with levofloxacin, ster oids, and bronchodilators. We are going to continue supplemental oxygen. 2. Chest pain, rule out acute coronary syndrome. At this point, her pain appears to be musculoskeletal secondary to frequent coughing as it can be re produced with palpation of the anterior chest wall. She has no new EKG changes. We are going to ch ena serial troponins and if negative, I believe no further workup is indicated at this time as she h ad a stress test in January 2016 that showed this small anterior wall reversible defect. At that time, she was seen by Cardiology (Dr. Hayes) and his impression was that her chest pain was reproducible and musculoskeletal related to coughing. At that time, she had no elevated troponin, no ischemic EK G changes to suggest active myocardial ischemia. That being said, the patient is at high risk of fut ure cardiac events and she should not ignore future chest pain episodes. At that point, he educated her that her continued smoking placed her at risk of things including, but not limited to worsening lung damage, cancer, heart attack, stroke and . At that point, he recommended continuing stat in but this appeared to be discontinued, so we will resume it. Continue her anticoagulation with wa rfarin, but he felt that we did not need to add aspirin at this time because the vascular disease is stable, although in the future, if anticoagulation were ever discontinued, he would recommend addin g aspirin at that time. He also recommended continuing a beta-sandeep, Imdur. At this point, the plan is to check serial troponins to rule out acute coronary syndrome. As outpat ient, when she is more stable if her primary care provider wants to pursue a stress test, that can b e done. 3. Hypertension is controlled. We will continue metoprolol. 4. Hyperlipidemia. We will resume her atorvastatin. 5. History of lower extremity deep venous thrombosis. Her INR is 1.9. I am going to continue the same warfarin dose as she is going to be on levofloxacin, so we will have to monitor her INR closely . 6. Bipolar disorder/schizophrenia. Continue Zyprexa, lithium and mirtazapine. 7. Tobacco abuse. The patient requests nicotine inhaler. 8. DVT prophylaxis. The patient has a score of 8 on the DVT prophylaxis Risk Assessment Guide, luis alberto t puts her at very high risk. We are going to continue her warfarin and she will have SCDs. 9. Code status is full. TIME SPENT: Approximately 65 minutes were spent with the patient interview, medical record review, physical examination to complete this admission, more than half of this time was spent [id number] with the patient in coordination of care. [id number]/[facility] #: [id number]
[2017-05-14] MEDS: Warfarin TAB(*) 2 MG PO SCH (16:43)
[2017-05-14] MEDS: [UNRECOGNIZED DRUG - OTHER] PO SCH (19:27)
[2017-05-14] MEDS: Lithium Carbonate TAB* 300 MG PO SCH (21:21)
[2017-05-14] MEDS: Mirtazapine TAB* 15 MG PO SCH (21:22)
[2017-05-14] MEDS: Metoprolol Tartrate TAB* 25 MG PO SCH (21:22)
[2017-05-14] MEDS: Gabapentin CAP(*) 100 MG PO SCH (21:23)
[2017-05-14] MEDS ORDERED: ALPRAZolam TAB* 0.25 MG PO ONE (23:46)
[2017-05-15] MEDS: Albuterol/Ipratropium NEB.SOL* Albuterol 2.5 MG/Ipratropium 0.5 MG 3 ML INH SCH ×5 (03:33→19:31)
[2017-05-15] MEDS: methylPREDNISolone SOD 40 MG* 1 ML VIAL IV SCH ×3 (05:38→20:23)
[2017-05-15] MEDS: Nicotine Inhaler* 10 MG AMP INH PRN ×5 (06:26→20:22)
[2017-05-15 06:49] LABS: Hematocrit 39 % (35-47); Hemoglobin 12.4 g/dl (12.0-16.0); Mean Corpuscular HGB Conc 32 g/dl (31-36); Mean Corpuscular Hemoglobin 27 pg (27-31); Mean Corpuscular Volume 86 fL (80-97); Mean Platelet Volume 9 um3 (7.4-10.4); Red Blood Count 4.54 10^6/ul (4.0-5.4); Red Cell Distribution Width 17 % (10.5-15)
[2017-05-15 07:03] LABS: BUN/Creatinine Ratio 23.7 (8-20); Calcium 10.1 mg/dL (8.6-10.3); EGFR African American 79.4 (>60); EGFR Non-African American 61.7 (>60)
[2017-05-15] MEDS: Montelukast Sodium TAB* 10 MG PO SCH (07:47)
[2017-05-15] MEDS: Lithium Carbonate TAB* 300 MG PO SCH ×2 (07:47→20:25)
[2017-05-15] MEDS: Omeprazole CAP* 20 MG PO SCH (07:47)
[2017-05-15] MEDS: Isosorbide Mononitrate ER TAB* 30 MG PO SCH (07:47)
[2017-05-15] MEDS: Gabapentin CAP(*) 100 MG PO SCH ×2 (07:47→20:23)
[2017-05-15] MEDS: Metoprolol Tartrate TAB* 25 MG PO SCH ×2 (07:48→20:25)
[2017-05-15] MEDS: Fluticasone/Vilanterol MDI(NF) 100/25 MDI INH SCH (08:35)
[2017-05-15] MEDS ORDERED: Influenza VAC *QUAD* 2017-18* 0.5 ML SYRINGE IM ONE (09:30)
[2017-05-15 09:43] LABS: Urine Bilirubin Negative (Negative); Urine Glucose Negative (Negative); Urine Nitrite Negative (Negative)
[2017-05-15] MEDS ORDERED: ALPRAZolam TAB* 0.25 MG PO PRN (10:11)
[2017-05-15] MEDS: Levofloxacin 750 MG IVPREMIX(* 750 MG/150 ML BAG IVPB SCH (11:32)
--- NOTE | 2017-05-15 13:20 | PN ---
Subjective Date of Service: 05/15/17 Interval History: HOSPITALIST PROGRESS NOTE Patient seen and examined at bedside. She feels a little better today. Chest pain is resolved, but still has difficulty breathing and dry cough. Family History: Unchanged from Admission Social History: Unchanged from Admission Past Medical History: Unchanged from Admission Objective Active Medications: Al Hydrox/Mg Hydrox/Simethicone (Maalox Plus*) 30 ml PO DAILY PRN PRN Reason: INDIGESTION Albuterol (Ventolin 2.5 Mg/3 Ml Neb.Tania*) 2.5 mg INH Q2H PRN PRN Reason: SOB/WHEEZING Albuterol (Ventolin Hfa Inhaler*) 2 puff INH Q4H PRN PRN Reason: SHORTNESS OF BREATH Albuterol/Ipratropium (Duoneb (Albuterol 2.5 Mg/Ipratropium 0.5 Mg)) 1 neb INH [id number] AWAKE [facility] Last Admin: 05/15/17 11:30 Dose: 1 neb Alprazolam (Xanax Tab*) 0.25 mg PO Q6H PRN PRN Reason: ANXIETY Fluticasone/Vilanterol (Breo Ellipta Mdi 100/25(Nf)) 1 puff INH DAILY [facility] Last Admin: 05/15/17 08:35 Dose: Not Given Gabapentin (Neurontin Cap(*)) 100 mg PO BID [facility] Last Admin: 05/15/17 07:47 Dose: 100 mg Levofloxacin/Dextrose (Levaquin 750 Mg Ivpremix(*)) 750 mg in 150 mls @ 100 mls /hr IVPB Q24H [facility] Last Admin: 05/15/17 11:32 Dose: 100 mls/hr Isosorbide Mononitrate (Imdur Er Tab*) 30 mg PO DAILY [facility] Last Admin: 05/15/17 07:47 Dose: 30 mg [place] Carbonate ([place] Carbonate Tab*) 300 mg PO BID [facility] Last Admin: 05/15/17 07:47 Dose: 300 mg Methylprednisolone Sodium Succinate (Solu-Medrol 40 Mg) 40 mg IV Q8H [facility] Last Admin: 05/15/17 11:32 Dose: 40 mg Metoprolol Tartrate (Lopressor Tab*) 25 mg PO BID [facility] Last Admin: 05/15/17 07:48 Dose: 25 mg Mirtazapine (Remeron Tab*) 7.5 mg PO BEDTIME [facility] Last Admin: 05/14/17 21:22 Dose: 7.5 mg Montelukast Sodium (Singulair Tab*) 10 mg PO DAILY [facility] Last Admin: 05/15/17 07:47 Dose: 10 mg Nicotine (Nicotine Inhaler*) 10 mg INH Q2H PRN PRN Reason: CRAVING Last Admin: 05/15/17 10:04 Dose: 10 mg Olanzapine (Zyprexa Tab*) 30 mg PO QPM [facility] Last Admin: 05/14/17 19:27 Dose: 30 mg Omeprazole (Prilosec Cap*) 20 mg PO 0730 [facility] PRN Reason: Protocol Last Admin: 05/15/17 07:47 Dose: 20 mg Oxycodone/Acetaminophen (Percocet 5/325 Tab*) 1 tab PO Q6H PRN PRN Reason: PAIN Last Admin: 05/15/17 07:48 Dose: 1 tab Pharmacy Profile Note (Coumadin Daily Reminder*) 1 note FOLLOW UP 1700 [facility] Last Admin: 05/14/17 17:03 Dose: 1 note Warfarin Sodium (Coumadin Tab(*)) 2 mg PO 1700 [facility] PRN Reason: Protocol Last Admin: 05/14/17 16:43 Dose: 2 mg Vital Signs 05/15/17 05/15/17 09:48 11:31 Pulse Rate 99 Respiratory 22 73 Rate O2 Sat by Pulse 18 Oximetry Oxygen Devices in Use Now: Nasal Cannula Appearance: Middle aged lady sitting up in bed in [facility]. Eyes: No Scleral Icterus Ears/Nose/Mouth/Throat: Mucous Membranes Moist Neck: Trachea Midline Respiratory: Symmetrical Chest Expansion and Respiratory Effort, - - BS+ bilaterally with scattered wheeze and rhonchi Cardiovascular: RRR - Normal S1 and S2 Abdominal: NL Sounds; No Tenderness; No Distention Neurological: Alert and Oriented x 3, NL Muscle Strength and Tone Lines/Tubes/Other Access: Clean, Dry and Intact Peripheral IV Nutrition: Taking PO's Result Diagrams: 05/15/17 06:20 05/15/17 06:20 Assess/Plan/Problems-Billing Assessment: Mrs. Camejo is a 61yo F with PMH of COPD on home O2, tobacco abuse, HTN, HLD, DVT, IBS, PVD, bipolar disorder, schizophrenia, who presented to ED with c/o chest pain and dyspnea, found to have COPD exacerbation. - Patient Problems (1) COPD exacerbation Comment: - Secondary to bronchitis. - Continue steroids, bronchodilators, levofloxacin. (2) Tobacco abuse Comment: - Patient advised if she continues to smoke, she'll . - I believe this episode is secondary to her smoking soon after prior discharge. - Continue nicotine supplementation. (3) Chest pain Comment: - ACS ruled out, no significant arrhythmias on Telemetry. (4) Hypertension Comment: - Controlled, continue metoprolol. (5) HLD (hyperlipidemia) Comment: - Continue Atorvastatin. (6) Hx of deep venous thrombosis Comment: - Continue Warfarin. (7) Schizoaffective disorder, bipolar type Comment: - Stable. - Continue Zyprexa, lithium and mirtazapine. (8) DVT prophylaxis Comment: - Warfarin / SCD. (9) Full code status Status and Disposition: Change to inpatient for COPD exacerbation requiring >48h for stabilization.
[2017-05-15] MEDS: Atorvastatin* 10 MG TAB PO SCH (16:50)
[2017-05-15] MEDS: [UNRECOGNIZED DRUG - OTHER] PO SCH (16:50)
[2017-05-15] MEDS: Warfarin TAB(*) 2 MG PO SCH (16:50)
[2017-05-15] MEDS: Mirtazapine TAB* 15 MG PO SCH (20:24)
[2017-05-16] MEDS: Albuterol/Ipratropium NEB.SOL* Albuterol 2.5 MG/Ipratropium 0.5 MG 3 ML INH SCH ×6 (00:50→18:00)
[2017-05-16] MEDS: Nicotine Inhaler* 10 MG AMP INH PRN ×5 (03:05→21:03)
[2017-05-16] MEDS: methylPREDNISolone SOD 40 MG* 1 ML VIAL IV SCH ×3 (03:07→21:03)
[2017-05-16] MEDS: Montelukast Sodium TAB* 10 MG PO SCH (08:05)
[2017-05-16] MEDS: Gabapentin CAP(*) 100 MG PO SCH ×2 (08:05→21:03)
[2017-05-16] MEDS: Metoprolol Tartrate TAB* 25 MG PO SCH ×2 (08:05→21:04)
[2017-05-16] MEDS: Isosorbide Mononitrate ER TAB* 30 MG PO SCH (08:05)
[2017-05-16] MEDS: Lithium Carbonate TAB* 300 MG PO SCH ×2 (08:05→21:03)
[2017-05-16] MEDS: Omeprazole CAP* 20 MG PO SCH (08:05)
[2017-05-16] MEDS: Fluticasone/Vilanterol MDI(NF) 100/25 MDI INH SCH (09:46)
[2017-05-16] MEDS: Levofloxacin 750 MG IVPREMIX(* 750 MG/150 ML BAG IVPB SCH (12:06)
--- NOTE | 2017-05-16 16:07 | PN ---
Subjective Date of Service: 05/16/17 Interval History: HOSPITALIST PROGRESS NOTE Patient seen and examined at bedside. She feels a little better today. Chest pain is resolved, dyspnea is improved, but still present. Major complaint is dry cough. Family History: Unchanged from Admission Social History: Unchanged from Admission Past Medical History: Unchanged from Admission Objective Active Medications: Al Hydrox/Mg Hydrox/Simethicone (Maalox Plus*) 30 ml PO DAILY PRN PRN Reason: INDIGESTION Last Admin: 05/15/17 14:48 Dose: 30 ml Albuterol (Ventolin 2.5 Mg/3 Ml Neb.Tania*) 2.5 mg INH Q2H PRN PRN Reason: SOB/WHEEZING Albuterol (Ventolin Hfa Inhaler*) 2 puff INH Q4H PRN PRN Reason: SHORTNESS OF BREATH Albuterol/Ipratropium (Duoneb (Albuterol 2.5 Mg/Ipratropium 0.5 Mg)) 1 neb INH [id number] AWAKE [facility] Last Admin: 05/16/17 13:34 Dose: 1 neb Alprazolam (Xanax Tab*) 0.25 mg PO Q6H PRN PRN Reason: ANXIETY Atorvastatin Calcium (Lipitor*) 10 mg PO 1700 [facility] Last Admin: 05/15/17 16:50 Dose: 10 mg Fluticasone/Vilanterol (Breo Ellipta Mdi 100/25(Nf)) 1 puff INH DAILY [facility] Last Admin: 05/16/17 09:46 Dose: Not Given Gabapentin (Neurontin Cap(*)) 100 mg PO BID [facility] Last Admin: 05/16/17 08:05 Dose: 100 mg Levofloxacin/Dextrose (Levaquin 750 Mg Ivpremix(*)) 750 mg in 150 mls @ 100 mls /hr IVPB Q24H [facility] Last Admin: 05/16/17 12:06 Dose: 100 mls/hr Isosorbide Mononitrate (Imdur Er Tab*) 30 mg PO DAILY [facility] Last Admin: 05/16/17 08:05 Dose: 30 mg [place] Carbonate ([place] Carbonate Tab*) 300 mg PO BID [facility] Last Admin: 05/16/17 08:05 Dose: 300 mg Methylprednisolone Sodium Succinate (Solu-Medrol 40 Mg) 40 mg IV Q8H [facility] Last Admin: 05/16/17 12:05 Dose: 40 mg Metoprolol Tartrate (Lopressor Tab*) 25 mg PO BID [facility] Last Admin: 05/16/17 08:05 Dose: 25 mg Mirtazapine (Remeron Tab*) 7.5 mg PO BEDTIME [facility] Last Admin: 05/15/17 20:24 Dose: 7.5 mg Montelukast Sodium (Singulair Tab*) 10 mg PO DAILY [facility] Last Admin: 05/16/17 08:05 Dose: 10 mg Nicotine (Nicotine Inhaler*) 10 mg INH Q2H PRN PRN Reason: CRAVING Last Admin: 05/16/17 12:05 Dose: 10 mg Olanzapine (Zyprexa Tab*) 30 mg PO QPM [facility] Last Admin: 05/15/17 16:50 Dose: 30 mg Omeprazole (Prilosec Cap*) 20 mg PO 0730 [facility] PRN Reason: Protocol Last Admin: 05/16/17 08:05 Dose: 20 mg Oxycodone/Acetaminophen (Percocet 5/325 Tab*) 1 tab PO Q6H PRN PRN Reason: PAIN Last Admin: 05/15/17 07:48 Dose: 1 tab Pharmacy Profile Note (Coumadin Daily Reminder*) 1 note FOLLOW UP 1700 [facility] Last Admin: 05/15/17 16:50 Dose: 1 note Warfarin Sodium (Coumadin Tab(*)) 2 mg PO 1700 [facility] PRN Reason: Protocol Last Admin: 05/15/17 16:50 Dose: 2 mg Vital Signs 05/16/17 05/16/17 05/16/17 10:05 11:11 13:35 Temperature 98.1 F Pulse Rate 69 88 Respiratory 22 24 Rate Blood Pressure 137/59 (mmHg) O2 Sat by Pulse 98 100 Oximetry Oxygen Devices in Use Now: Nasal Cannula Appearance: Pleasant lady sitting up in bed in NAD. Eyes: No Scleral Icterus Ears/Nose/Mouth/Throat: Mucous Membranes Moist Neck: Trachea Midline Respiratory: Symmetrical Chest Expansion and Respiratory Effort, - - BS+ bilaterally with scattered wheeze and rhonchi. Cardiovascular: RRR - Normal S1 and S2 Abdominal: NL Sounds; No Tenderness; No Distention Neurological: Alert and Oriented x 3, NL Muscle Strength and Tone Lines/Tubes/Other Access: Clean, Dry and Intact Peripheral IV Nutrition: Taking PO's Result Diagrams: 05/15/17 06:20 05/15/17 06:20 Assess/Plan/Problems-Billing Assessment: Mrs. Camejo is a 61yo F with PMH of COPD on home O2, tobacco abuse, HTN, HLD, DVT, IBS, PVD, bipolar disorder, schizophrenia, who presented to ED with c/o chest pain and dyspnea, found to have COPD exacerbation. - Patient Problems (1) COPD exacerbation Comment: - Secondary to bronchitis. - Continue steroids, bronchodilators, levofloxacin. (2) Tobacco abuse Comment: - Patient advised if she continues to smoke, she'll . - I believe this episode is secondary to her smoking soon after prior discharge. - Continue nicotine supplementation. (3) Chest pain Comment: - ACS ruled out, no significant arrhythmias on Telemetry. (4) Hypertension Comment: - Controlled, continue metoprolol. (5) HLD (hyperlipidemia) Comment: - Continue Atorvastatin. (6) Hx of deep venous thrombosis Comment: - Continue Warfarin. (7) Schizoaffective disorder, bipolar type Comment: - Stable. - Continue Zyprexa, lithium and mirtazapine. (8) DVT prophylaxis Comment: - Warfarin / SCD. (9) Full code status Status and Disposition: Change to inpatient for COPD exacerbation requiring >48h for stabilization. Anticipate d/c in AM.
[2017-05-16] MEDS: Atorvastatin* 10 MG TAB PO SCH (16:24)
[2017-05-16] MEDS: [UNRECOGNIZED DRUG - OTHER] PO SCH (16:24)
[2017-05-16] MEDS: Warfarin TAB(*) 2 MG PO SCH (16:24)
[2017-05-16] MEDS: Mirtazapine TAB* 15 MG PO SCH (21:04)
[2017-05-17] MEDS: Albuterol/Ipratropium NEB.SOL* Albuterol 2.5 MG/Ipratropium 0.5 MG 3 ML INH SCH ×3 (00:30→08:03)
[2017-05-17] MEDS: Nicotine Inhaler* 10 MG AMP INH PRN ×3 (02:13→12:02)
[2017-05-17] MEDS: methylPREDNISolone SOD 40 MG* 1 ML VIAL IV SCH ×2 (03:11→12:04)
[2017-05-17] MEDS: Fluticasone/Vilanterol MDI(NF) 100/25 MDI INH SCH (08:05)
[2017-05-17 08:09] VITALS: BP 153/58
[2017-05-17] MEDS: Montelukast Sodium TAB* 10 MG PO SCH (09:52)
[2017-05-17] MEDS: Lithium Carbonate TAB* 300 MG PO SCH (09:53)
[2017-05-17] MEDS: Gabapentin CAP(*) 100 MG PO SCH (09:53)
[2017-05-17] MEDS: Omeprazole CAP* 20 MG PO SCH (09:54)
[2017-05-17] MEDS: Metoprolol Tartrate TAB* 25 MG PO SCH (09:55)
[2017-05-17] MEDS: Isosorbide Mononitrate ER TAB* 30 MG PO SCH (09:55)
[2017-05-17] MEDS: Levofloxacin 750 MG IVPREMIX(* 750 MG/150 ML BAG IVPB SCH (12:04)
--- NOTE | 2017-05-18 03:36 | DS ---
CC: Dr. Schrader * DISCHARGE SUMMARY: DATE OF ADMISSION: 05/14/17 DATE OF DISCHARGE: 05/17/17 PRIMARY CARE PROVIDER: Dr. Schrader. DISCHARGE DIAGNOSES: 1. Chronic obstructive pulmonary disease exacerbation secondary to bronchitis. 2. Acute on chronic hypoxic respiratory failure. 3. Chest pain, acute coronary syndrome ruled out. SECONDARY DIAGNOSES: 1. Chronic obstructive pulmonary disease, on 2 L of O2 at night. 2. Tobacco abuse. 3. Hypertension. 4. Hyperlipidemia. 5. History of deep venous thrombosis. 6. Irritable bowel syndrome. 7. Bipolar disorder. 8. Schizophrenia. 9. Anxiety. 10. Depression. 11. Peripheral vascular disease. MEDICATIONS: 1. Xanax 0.25 mg p.o. q.6 hours p.r.n. anxiety. 2. Breo Ellipta 100/25 one puff inhaled daily. 3. Montelukast 10 mg p.o. daily. 4. Mirtazapine 7.5 mg p.o. at bedtime. 5. Metoprolol tartrate 25 mg p.o. b.i.d. 6. Warfarin 2 mg p.o. daily. 7. Gabapentin 100 mg p.o. b.i.d. 8. [place] 300 mg p.o. b.i.d. 9. Omeprazole 40 mg p.o. daily. 10. Maalox 30 mL p.o. daily as needed for indigestion. 11. Olanzapine 40 mg p.o. at bedtime. 12. Nicotine inhaler 10 mg inhaled q.2 hours p.r.n. cravings. 13. Percocet 5/325 one tablet p.o. q.6 hours p.r.n. pain. 14. Imdur 30 mg p.o. daily. 15. Albuterol HFA 2 puffs inhaled q.4 hours p.r.n. shortness of breath. 16. Albuterol nebulized 2.5 mg q.2 hours p.r.n. shortness of breath. 17. Atorvastatin 10 mg p.o. daily. New medications: 1. Prednisone taper as follows, 40 mg p.o. daily for 3 days, then 30 mg for 3 days, then 20 mg for 3 days, then 10 mg for 3 days, then 5 mg for 3 days and then stop. 2. Levofloxacin 750 mg p.o. daily for 2 more days. HOSPITAL COURSE: Ms. Camejo is a 61-year-old lady with a past medical history as stated above who presented to the emergency room with complaints of chest pain, shortness of breath, wheezing and cough. For more details about her presentation, I refer you to her history and physical, but in summary in the emergency room, she had the chest x-ray that showed no acute pulmonary disease. The impression was that the patient likely had another episode of COPD exacerbation secondary to bronchitis and to the fact that she resumed smoking shortly after her last discharge. The patient responded well to treatment with levofloxacin, steroids, and bronchodilators. She received extensive tobacco cessation education and she states she is motivated at this time. She will be followed by [facility] to continue the efforts for tobacco cessation. Regarding her chest pain, the patient had no new EKG changes and serial troponins were negative. She had the stress test done last year that showed the small area of anterior wall reversible defect and at that time, she was seen by Dr. Hayes who recommended medical management. I believe her episodes of chest pain are secondary to increased demand in the setting of COPD exacerbation and she apparently also has a musculoskeletal component secondary to frequent coughing as the pain can be reproduced on palpation on the anterior chest wall. I believe at this point, we should continue medical management with medications as we have been doing, but she could discuss another stress test as outpatient with her primary care provider. The patient had improvement of her symptoms and she was felt to be stable to be discharged from today. PHYSICAL EXAMINATION: Vital Signs: Temperature is 98.1, heart rate is 80, respiratory rate is 20, oxygen saturation is 99% on 2 L nasal cannula, blood pressure is 153/58. General: The patient is a pleasant lady, sitting up in bed , in no acute distress. CVS: Normal S1, S2. Regular rate and rhythm. Chest: Breath sounds present bilaterally with no added sounds. Abdomen: Soft. Bowel sounds are present. Neuro: She is alert and oriented x3. Able to move all 4 extremities. DIET: Heart healthy diet, avoid caffeine. ACTIVITIES: As tolerated. DISPOSITION: To home. STATUS WHILE IN THE HOSPITAL: Inpatient. Please keep in mind this is a summarized version of this patient's hospital stay. If you need more information, please feel free to call me at [phone] or please obtain the full medical records. TIME SPENT: Approximately 45 minutes were spent to complete this discharge. [id number]/[facility] #: [id number] ANNITA
== END 2017-05-17 12:57 | disposition home or self-care (01) | DRG 190 ==
LOC: ED 07:37 → MEDTELE 10:33 → OBSVTOIN 05-15 08:52
PROVIDERS: ADMIT Internal Medicine; ATTEND Internal Medicine
PROC: 3E0234Z Introduction of Serum, Toxoid and Vaccine into Muscle, Percutaneous Approach (ICD-10-PCS; principal; 2017-05-15)
DX: J44.1 Chronic obstructive pulmonary disease with (acute) exacerbation (principal); J96.21 Acute and chronic respiratory failure with hypoxia; F20.9 Schizophrenia, unspecified; I10 Essential (primary) hypertension; I25.10 Atherosclerotic heart disease of native coronary artery without angina pectoris; I73.9 Peripheral vascular disease, unspecified; K21.9 Gastro-esophageal reflux disease without esophagitis; K58.9 Irritable bowel syndrome, unspecified; F31.9 Bipolar disorder, unspecified; F41.9 Anxiety disorder, unspecified; F17.210 Nicotine dependence, cigarettes, uncomplicated; R07.9 Chest pain, unspecified; R40.2412 Glasgow coma scale score 13-15, at arrival to emergency department; E78.5 Hyperlipidemia, unspecified; Z82.49 Family history of ischemic heart disease and other diseases of the circulatory system; Z88.1 Allergy status to other antibiotic agents; Z86.718 Personal history of other venous thrombosis and embolism; Z88.0 Allergy status to penicillin; Z88.8 Allergy status to other drugs, medicaments and biological substances; Z90.49 Acquired absence of other specified parts of digestive tract; Z91.5 Personal history of self-harm; Z72.89 Other problems related to lifestyle; Z82.5 Family history of asthma and other chronic lower respiratory diseases; Z23 Encounter for immunization; Z79.01 Long term (current) use of anticoagulants
CPT/HCPCS: 36415; 71010; 71020; 80048; 80053; 81003; 83036; 83605; 83880; 84484; 85025; 85610; 85730; 90686; 93005; 94640; 94760; 94761; 99406; A9270-GY; G0378; J2920; J2930

== ENCOUNTER 2017-05-18 21:57 | Emergency (ER) | payer MEDICARE, MEDICAID ==
[2017-05-18] MEDS ORDERED: Albuterol/Ipratropium NEB.SOL* Albuterol 2.5 MG/Ipratropium 0.5 MG 3 ML INH ONE (22:26)
[2017-05-18] MEDS ORDERED: NS 0.9% 1000 ML* 2,000 ML IV ONE (22:26)
[2017-05-18] MEDS ORDERED: methylPREDNISolone 125 MG* 2 ML VIAL IV ONE (22:26)
[2017-05-18 22:37] LABS: Urine Bilirubin Negative (Negative); Urine Glucose Negative (Negative); Urine Nitrite Negative (Negative)
[2017-05-18 22:49] LABS: Hematocrit 37 % (35-47); Hemoglobin 11.8 g/dl (12.0-16.0); Mean Corpuscular HGB Conc 32 g/dl (31-36); Mean Corpuscular Hemoglobin 27 pg (27-31); Mean Corpuscular Volume 85 fL (80-97); Mean Platelet Volume 8 um3 (7.4-10.4); Red Blood Count 4.32 10^6/ul (4.0-5.4); Red Cell Distribution Width 16 % (10.5-15); White Blood Count 7.2 10^3/ul (3.5-10.8)
[2017-05-18 23:04] LABS: Albumin 3.4 g/dL (3.2-5.2); BUN/Creatinine Ratio 30.2 (8-20); C Reactive Protein 1.45 mg/L (< 5.00); Calcium 9.1 mg/dL (8.6-10.3); EGFR African American 86.9 (>60); EGFR Non-African American 67.5 (>60); Globulin 1.7 g/dL (2-4); Potassium 4.2 mmol/L (3.5-5.0); Total Bilirubin 0.4 mg/dL (0.2-1.0); Total Protein 5.1 g/dL (6.4-8.9)
[2017-05-18 23:05] LABS: Troponin I 0.02 ng/mL (<0.04)
[2017-05-18 23:23] LABS: Lithium 0.83 mmol/L (0.6-1.2)
[2017-05-19 06:46] VITALS: BP 143/58
--- NOTE | 2017-05-19 07:24 | ED ---
Shayna Laboy Emily, scribed for Fito Canchola MD on 05/19/17 at 0057 . Shortness of Breath - HPI Summary HPI Summary: This patient is a 61 year old F BIBA to [facility] with a chief complaint of SOB since approximately 1 hour ago. Pt reported to ED yesterday with SOB and was diagnosed with COPD exacerbation secondary to bronchitis. Pt felt better upon discharge yesterday. She has not felt this short of breath previously. Pt is on 2L of O2 daily at home. The patient rates the pain 7/10 in severity. Symptoms aggravated by nothing. Symptoms alleviated by EMS administration of one duoneb. Patient reports wheezing, CP, and chest tightness. Patient denies fever, chills , vomiting, diarrhea, and ankle swelling. Denies hx of CHF. PMHx includes blood clot in leg and smoking. - History of Current Complaint Chief Complaint: EDShortnessOfBreath Time Seen by Provider: 05/18/17 22:13 Hx Obtained From: Patient Onset/Duration: Sudden Onset, Lasting Hours, Still Present Current Severity: Moderate - Pain rated as 7/10 Aggrevating Factors: Nothing Alleviating Factors: EMS Tx Associated Signs & Symptoms: Wheezing - Allergy/Home Medications Allergies/Adverse Reactions: Allergies Allergy/AdvReac Type Severity Reaction Status Date / Time Bupropion [From Wellbutrin] Allergy Severe Agitation Verified 05/18/17 22:00 Cephalosporins Allergy Severe Agitation Verified 05/18/17 22:00 Penicillins [PCN] Allergy Intermediate Hives Verified 05/18/17 22:00 Chlorpromazine AdvReac Severe Diarrhea Verified 05/18/17 22:00 Erythromycin AdvReac Intermediate Diarrhea Verified 05/18/17 22:00 Tobramycin AdvReac Intermediate Diarrhea Verified 05/18/17 22:00 PMH/Surg Hx/FS Hx/Imm Hx Previously Healthy: No Endocrine/Hematology History: Reports: Hx Anticoagulant Therapy, Other Endocrine /Hematological Disorders - L leg DVT Denies: Hx Diabetes, Hx Systemic Lupus Erythematosus, Hx Thyroid Disease Cardiovascular History: Reports: Hx Angina, Hx Coronary Artery Disease, Hx Deep Vein Thrombosis, Hx Hypercholesterolemia, Hx Hypertension, Hx Peripheral Vascular Disease, Other Cardiovascular Problems/Disorders - PERIPHERAL ARTERY DISEASE; CAD; DVT Denies: Hx Congestive Heart Failure, Hx Pacemaker/ICD Respiratory History: Reports: Hx Asthma, Hx Chronic Bronchitis, Hx Chronic Obstructive Pulmonary Disease (COPD), Hx Pneumonia, Hx Seasonal Allergies, Other Respiratory Problems/Disorders - PNA Denies: Hx Cystic Fibrosis, Hx Lung Cancer, Hx Pleural Effusion, Hx Pulmonary Edema, Hx Pulmonary Embolism, Hx Sleep Apnea GI History: Reports: Hx Gall Bladder Disease - removed, Hx Gastroesophageal Reflux Disease, Hx Irritable Bowel, Other GI Disorders - hernia repair X 2 Denies: Hx Cirrhosis, Hx Crohn's Disease, Hx Diverticulosis History: Denies: Hx Dialysis, Hx Renal Disease Musculoskeletal History: Denies: Hx Arthritis, Hx Rheumatoid Arthritis, Hx Osteoporosis Sensory History: Reports: Hx Contacts or Glasses Denies: Hx Glaucoma, Hx Deafness, Hx Hearing Aid, Hx Hearing Problem Opthamlomology History: Reports: Hx Contacts or Glasses Denies: Hx Glaucoma Neurological History: Denies: Hx Headaches, Hx Seizures, Hx Transient Ischemic Attacks (TIA) Psychiatric History: Reports: Hx Anxiety, Hx Depression, Hx Inpatient Treatment , Hx Community Mental Health Tx, Hx Schizophrenia, Hx Bipolar Disorder, Hx Suicide Attempt Denies: Hx Eating Disorder, Hx Panic Disorder, Hx of Violent Episodes Against Others - Cancer History Hx Chemotherapy: No - Surgical History Surgery Procedure, Year, and Place: bilat thumb repairs, hernia repairs X 2, cholecystectomy, appendectomy Hx Anesthesia Reactions: No - Immunization History Date of Tetanus Vaccine: UTD Date of Influenza Vaccine: UTD Infectious Disease History: No Infectious Disease History: Denies: Hx Clostridium Difficile, Hx Hepatitis, Hx Human Immunodeficiency Virus (HIV), Hx of Known/Suspected MRSA, Hx Shingles, Hx Tuberculosis, Traveled Outside the [place] in Last 30 Days - Family History Known Family History: Positive: Cardiac Disease - AL, Other - schizophrenia, anxiety Negative: Hypertension, Diabetes Family History: Negative HTN/Cardiac/DM per EMR - Social History Occupation: Disabled Lives: Alone Alcohol Use: None Hx Substance Use: No Substance Use Type: Reports: None Hx Tobacco Use: Yes Smoking Status (MU): Heavy Every Day Tobacco Smoker Type: Cigarettes Amount Used/How Often: half a pack a day Have You Smoked in the Last Year: Yes Review of Systems Negative: Fever, Chills Positive: Chest Pain, Other - Chest tightness Positive: Shortness Of Breath, Other - Wheezing Negative: Vomiting, Diarrhea Negative: Edema - In ankle. All Other Systems Reviewed And Are Negative: Yes Physical Exam - Summary Physical Exam Summary: The patient is well-nourished, in moderate respiratory distress, and in no acute pain. The skin is warm and dry. Pale. HEENT: The head is normocephalic and atraumatic. The pupils are equal and reactive. The conjunctivae are clear and without drainage. Nares are patent and without drainage. The throat is without erythema and exudate. The external ears are intact. The ear canals are patent and without drainage. The tympanic membranes are intact. Dry oral mucosa. No rhinorrhea Neck is supple with full range of motion and non-tender. There are no carotid bruits. There is no neck vein distension. Respiratory: Chest is non-tender. Intercostal retractions. Lungs diminished breath sounds throughout with occasional refill. Cardiovascular: Heart is regular rate and rhythm. There is no murmur or rub auscultated. There is no peripheral edema and pulses are symmetrical and equal. Abdomen: The abdomen is soft and non-tender. There are normal bowel sounds heard in all four quadrants and there is no organomegaly palpated. Musculoskeletal: There is no back pain noted. Extremities are non-tender with full range of motion. 3 second capillary refill. There is no peripheral edema or calf tenderness elicited. Neurological: Patient is alert and oriented to person, place and time. The patient has symmetrical motor strength in all four extremities. Cranial nerves are grossly intact. Deep tendon reflexes are symmetrical and equal in all four extremities. Triage Information Reviewed: Yes Vital Signs On Initial Exam: Initial Vitals Temp Pulse Resp BP Pulse Ox 97.2 F 87 22 108/55 99 05/18/17 21:58 05/18/17 21:58 05/18/17 21:58 05/18/17 21:58 05/18/17 21:58 Vital Signs Reviewed: Yes - Callie Coma Scale Coma Scale Total: 15 Diagnostics - Vital Signs Vital Signs Temp Pulse Resp BP Pulse Ox 05/18/17 22:01 97.2 F 87 22 108/55 99 05/18/17 21:58 97.2 F 87 22 108/55 99 - Laboratory Lab Results: Lab Results 05/18/17 05/18/17 05/18/17 Range/Units 22:29 22:37 22:37 WBC (3.5-10.8) 10^3/ul RBC (4.0-5.4) 10^6/ul Hgb (12.0-16.0) g/dl Hct (35-47) % MCV (80-97) fL MCH (27-31) pg MCHC (31-36) g/dl RDW (10.5-15) % Plt Count (150-450) 10^3/ul MPV (7.4-10.4) um3 Neut % (Auto) (38-83) % Lymph % (Auto) (25-47) % [place] % (Auto) (1-9) % Eos % (Auto) (0-6) % Baso % (Auto) (0-2) % Absolute Neuts (auto) (1.5-7.7) 10^3/ul Absolute Lymphs (auto) (1.0-4.8) 10^3/ul Absolute Monos (auto) (0-0.8) 10^3/ul Absolute Eos (auto) (0-0.6) 10^3/ul Absolute Basos (auto) (0-0.2) 10^3/ul Absolute Nucleated RBC 10^3/ul Nucleated RBC % INR (Anticoag Therapy) 1.93 H (0.89-1.11) APTT 27.8 (26.0-36.3) seconds Sodium 140 (133-145) mmol/L Potassium 4.2 (3.5-5.0) mmol/L Chloride 104 (101-111) mmol/L Carbon Dioxide 33 H (22-32) mmol/L Anion Gap 3 (2-11) mmol/L BUN 26 H (6-24) mg/dL Creatinine 0.86 (0.51-0.95) mg/dL Est GFR ( Amer) 86.9 (>60) Est GFR (Non-Af Amer) 67.5 (>60) BUN/Creatinine Ratio 30.2 H (8-20) Glucose 123 H (70-100) mg/dL Lactic Acid (0.5-2.0) mmol/L Calcium 9.1 (8.6-10.3) mg/dL Total Bilirubin 0.40 (0.2-1.0) mg/dL AST 11 L (13-39) U/L ALT 17 (7-52) U/L Alkaline Phosphatase 51 (34-104) U/L Troponin I 0.02 (<0.04) ng/mL C-Reactive Protein 1.45 (< 5.00) mg/L B-Natriuretic Peptide ( - 100) pg/mL Total Protein 5.1 L (6.4-8.9) g/dL Albumin 3.4 (3.2-5.2) g/dL Globulin 1.7 L (2-4) g/dL Albumin/Globulin Ratio 2.0 (1-3) Urine Color Straw Urine Appearance Clear Urine pH 7.0 (5-9) Ur Specific [place] 1.004 L (1.010-1.030) Urine Protein Negative (Negative) Urine Ketones Negative (Negative) Urine Blood Negative (Negative) Urine Nitrate Negative (Negative) Urine Bilirubin Negative (Negative) Urine Urobilinogen Negative (Negative) Ur Leukocyte Esterase Negative (Negative) Urine Glucose Negative (Negative) [place] 0.83 (0.6-1.2) mmol/L 05/18/17 05/18/17 05/18/17 Range/Units 22:37 22:37 22:37 WBC 7.2 (3.5-10.8) 10^3/ul RBC 4.32 (4.0-5.4) 10^6/ul Hgb 11.8 L (12.0-16.0) g/dl Hct 37 (35-47) % MCV 85 (80-97) fL MCH 27 (27-31) pg MCHC 32 (31-36) g/dl RDW 16 H (10.5-15) % Plt Count 136 L (150-450) 10^3/ul MPV 8 (7.4-10.4) um3 Neut % (Auto) 82.6 (38-83) % Lymph % (Auto) 11.7 L (25-47) % [place] % (Auto) 4.6 (1-9) % Eos % (Auto) 0.9 (0-6) % Baso % (Auto) 0.2 (0-2) % Absolute Neuts (auto) 6.0 (1.5-7.7) 10^3/ul Absolute Lymphs (auto) 0.8 L (1.0-4.8) 10^3/ul Absolute Monos (auto) 0.3 (0-0.8) 10^3/ul Absolute Eos (auto) 0.1 (0-0.6) 10^3/ul Absolute Basos (auto) 0 (0-0.2) 10^3/ul Absolute Nucleated RBC 0.01 10^3/ul Nucleated RBC % 0.2 INR (Anticoag Therapy) (0.89-1.11) APTT (26.0-36.3) seconds Sodium (133-145) mmol/L Potassium (3.5-5.0) mmol/L Chloride (101-111) mmol/L Carbon Dioxide (22-32) mmol/L Anion Gap (2-11) mmol/L BUN (6-24) mg/dL Creatinine (0.51-0.95) mg/dL Est GFR ( Amer) (>60) Est GFR (Non-Af Amer) (>60) BUN/Creatinine Ratio (8-20) Glucose (70-100) mg/dL Lactic Acid 0.9 (0.5-2.0) mmol/L Calcium (8.6-10.3) mg/dL Total Bilirubin (0.2-1.0) mg/dL AST (13-39) U/L ALT (7-52) U/L Alkaline Phosphatase (34-104) U/L Troponin I (<0.04) ng/mL C-Reactive Protein (< 5.00) mg/L B-Natriuretic Peptide 160 H ( - 100) pg/mL Total Protein (6.4-8.9) g/dL Albumin (3.2-5.2) g/dL Globulin (2-4) g/dL Albumin/Globulin Ratio (1-3) Urine Color Urine Appearance Urine pH (5-9) Ur Specific [place] (1.010-1.030) Urine Protein (Negative) Urine Ketones (Negative) Urine Blood (Negative) Urine Nitrate (Negative) Urine Bilirubin (Negative) Urine Urobilinogen (Negative) Ur Leukocyte Esterase (Negative) Urine Glucose (Negative) [place] (0.6-1.2) mmol/L Result Diagrams: 05/18/17 22:37 05/18/17 22:37 Lab Statement: Any lab studies that have been ordered have been reviewed, and results considered in the medical decision making process. - Radiology CXR Xray Interpretation: No Acute Changes - No effusion. Lungs clear. No PNA. Chronic COPD changes. Radiology Interpretation Completed By: ED Physician - EKG 1 Cardiac Rate: NL - 82 BPM EKG Rhythm: Sinus Rhythm EKG Interpretation: No STEMI. Nml axis. Old inferior AL. Poor R wave progression. Re-Evaluation - Re-Evaluation First Eval Re-Evaluation Time: 03:03 Comment: Discussed lab results with patient. Course/Dx - Course Course Of Treatment: This patient is a 61 year old F BIBA to [facility] with a chief complaint of SOB since approximately 1 hour ago. Pt reported to ED yesterday with SOB and was diagnosed with COPD exacerbation secondary to bronchitis. Pt felt better upon discharge yesterday. She has not felt this short of breath previously. Pt is on 2L of O2 daily at home. The patient rates the pain 7/10 in severity. Symptoms aggravated by nothing. Symptoms alleviated by EMS administration of one duoneb. Patient reports wheezing, CP, and chest tightness. Patient denies fever, chills, vomiting, diarrhea, and ankle swelling. Denies hx of CHF. PMHx includes blood clot in leg and smoking. Physical Exam Findings. Dry oral mucosa. No rhinorrhea. 3 second capillary refill. In moderate respiratory distress. Intercostal retractions. no stridor in neck, lungs diminished breath sounds throughout with occasional refill. Pale. Medical Decision Making. An EKG reveals sinus rhythm 82 BPM, no STEMI, nml axis, old inferior AL, and poor R wave progression. CXR read by ED physician reveals no acute changes, no effusion, lungs clear, no PNA, chronic COPD changes. In the ED course the patient was given Duoneb, Solu-Medrol, and fluids. Patient will be discharged with and follow up from Dr. Schrader. The patient is agreeable with this plan. - Diagnoses Differential Diagnosis/HQI/PQRI: Positive: CHF, AL, Pneumonia Provider Diagnoses: COPD (chronic obstructive pulmonary disease) Discharge - Discharge Plan Condition: Stable Disposition: HOME Patient Education Materials: COPD (Chronic Obstructive Pulmonary Disease) (ED) Referrals: Tom Schrader MD [Primary Care Provider] - 3 Days Additional Instructions: Follow up with your primary care provider in three days. Please return to the ED if you experience new or worsening symptoms. The documentation as recorded by the Shayna kiran Emily accurately reflects the service I personally performed and the decisions made by , Fito Canchola MD.
--- NOTE | 2017-05-19 08:03 | RAD ---
INDICATION: Shortness of breath, cough and wheezing. COMPARISON: Most recent comparison chest x-rays dated May 14, 2017 TECHNIQUE: PA and lateral views of the chest were obtained. FINDINGS: The heart and mediastinum are normal in size and contour. The lungs are grossly clear. Depicted best on the lateral view image there is moderate peribronchial cuffing. There is no evidence of large pleural effusion. Visualized bones are normal for the patient's age. There is no radiographic evidence of free air beneath the diaphragm IMPRESSION: MODERATE PERIBRONCHIAL CUFFING COULD BE SEEN IN THE SETTING OF BRONCHITIS OR OTHER INFLAMMATORY LUNG DISEASE.
== END 2017-05-19 06:49 | disposition home or self-care (01) ==
LOC: ED 21:57
DX: J44.9 Chronic obstructive pulmonary disease, unspecified (principal); R06.02 Shortness of breath; Z79.01 Long term (current) use of anticoagulants; R06.2 Wheezing; F17.210 Nicotine dependence, cigarettes, uncomplicated
CPT/HCPCS: 36415; 71020; 80053; 80178; 81003; 83605; 83880; 84484; 85025; 85610; 85730; 86140; 93005; 94640; 96374; 99284; A9270-GY; J2930

== ENCOUNTER 2017-05-20 16:17 | Emergency (ER) | payer MEDICARE, MEDICAID ==
[2017-05-20] MEDS ORDERED: Albuterol/Ipratropium NEB.SOL* Albuterol 2.5 MG/Ipratropium 0.5 MG 3 ML INH ONE ×2 (16:19→19:06)
[2017-05-20] MEDS ORDERED: methylPREDNISolone 125 MG* 2 ML VIAL IV ONE (16:19)
[2017-05-20 16:50] LABS: Hematocrit 40 % (35-47); Hemoglobin 12.8 g/dl (12.0-16.0); Mean Corpuscular HGB Conc 32 g/dl (31-36); Mean Corpuscular Hemoglobin 27 pg (27-31); Mean Corpuscular Volume 85 fL (80-97); Mean Platelet Volume 8 um3 (7.4-10.4); Red Blood Count 4.71 10^6/ul (4.0-5.4); Red Cell Distribution Width 16 % (10.5-15); White Blood Count 9.6 10^3/ul (3.5-10.8)
[2017-05-20 17:05] LABS: ALT 17 U/L (7-52); AST 11 U/L (13-39); Albumin 3.7 g/dL (3.2-5.2); Alkaline Phosphatase 56 U/L (34-104); Anion Gap 3 mmol/L (2-11); BUN/Creatinine Ratio 27.3 (8-20); Blood Urea Nitrogen 24 mg/dL (6-24); C Reactive Protein < 1.00 mg/L (< 5.00); CO2 Carbon Dioxide 31 mmol/L (22-32); Calcium 9.1 mg/dL (8.6-10.3); Chloride 104 mmol/L (101-111); EGFR African American 84.6 (>60); EGFR Non-African American 65.8 (>60); Globulin 2.1 g/dL (2-4); Glucose 88 mg/dL (70-100); Lipase 24 U/L (11.0-82.0); Potassium 4.2 mmol/L (3.5-5.0); Sodium 138 mmol/L (133-145); Total Protein 5.8 g/dL (6.4-8.9)
[2017-05-20 17:06] LABS: Troponin I 0.01 ng/mL (<0.04)
--- NOTE | 2017-05-20 17:08 | RAD ---
Indication: Chest pain, dyspnea. Cardiovascular disease, respiratory disease, tobacco use. Comparison: May 18, 2017 Technique: Upright AP 1630 hours Report: Elevated lung volumes and both diffuse mild prominence of the interstitial markings and patchy rarefaction of the mid to upper lung zone interstitial markings. No focal pulmonary lesion, compelling alveolar consolidation, pleural effusion, pneumothorax. The heart, pulmonary vasculature, and mediastinal contours are unremarkable. IMPRESSION: Stigmata of obstructive lung disease. No acute pulmonary or cardiac process evident.
[2017-05-20 17:26] LABS: Lithium 0.64 mmol/L (0.6-1.2)
[2017-05-20 18:08] LABS: Urine Bilirubin Negative (Negative); Urine Nitrite Negative (Negative)
[2017-05-20 18:09] LABS: Urine Glucose Negative (Negative)
--- NOTE | 2017-05-20 18:59 | ED ---
Gisela Laboy Edward, scribed for Graham Rendon MD on 05/20/17 at 1620 . Respiratory - HPI Summary HPI Summary: 61 y/o female BIBA c/o increased difficulty breathing and CP starting at 08:00 this morning. The symptoms are not aggravated or alleviated by anything. The pain is rated 8/10 in severity to the nurses. Pt states this feels like COPD exacerbation. Associated sx: productive cough (green). Denies fevers. Pt is on home O2 at night. PMHx COPD. - History of Current Complaint Stated Complaint: CHEST PAIN/DIFF BREATHING Hx Obtained From: Patient Onset/Duration: Lasting Hours, Still Present Character: Cough (Productive) Sputum Color: Green Associated Signs and Symptoms: SOB, Chest Pain - Allergy/Home Medications Allergies/Adverse Reactions: Allergies Allergy/AdvReac Type Severity Reaction Status Date / Time Bupropion [From Wellbutrin] Allergy Severe Agitation Verified 05/18/17 22:00 Cephalosporins Allergy Severe Agitation Verified 05/18/17 22:00 Penicillins [PCN] Allergy Intermediate Hives Verified 05/18/17 22:00 Chlorpromazine AdvReac Severe Diarrhea Verified 05/18/17 22:00 Erythromycin AdvReac Intermediate Diarrhea Verified 05/18/17 22:00 Tobramycin AdvReac Intermediate Diarrhea Verified 05/18/17 22:00 PMH/Surg Hx/FS Hx/Imm Hx Previously Healthy: No Endocrine/Hematology History: Reports: Hx Anticoagulant Therapy, Other Endocrine /Hematological Disorders - L leg DVT Denies: Hx Diabetes, Hx Systemic Lupus Erythematosus, Hx Thyroid Disease Cardiovascular History: Reports: Hx Angina, Hx Coronary Artery Disease, Hx Deep Vein Thrombosis, Hx Hypercholesterolemia, Hx Hypertension, Hx Peripheral Vascular Disease, Other Cardiovascular Problems/Disorders - PERIPHERAL ARTERY DISEASE; CAD; DVT Denies: Hx Congestive Heart Failure, Hx Pacemaker/ICD Respiratory History: Reports: Hx Asthma, Hx Chronic Bronchitis, Hx Chronic Obstructive Pulmonary Disease (COPD), Hx Pneumonia, Hx Seasonal Allergies, Other Respiratory Problems/Disorders - PNA Denies: Hx Cystic Fibrosis, Hx Lung Cancer, Hx Pleural Effusion, Hx Pulmonary Edema, Hx Pulmonary Embolism, Hx Sleep Apnea GI History: Reports: Hx Gall Bladder Disease - removed, Hx Gastroesophageal Reflux Disease, Hx Irritable Bowel, Other GI Disorders - hernia repair X 2 Denies: Hx Cirrhosis, Hx Crohn's Disease, Hx Diverticulosis History: Denies: Hx Dialysis, Hx Renal Disease Musculoskeletal History: Denies: Hx Arthritis, Hx Rheumatoid Arthritis, Hx Osteoporosis Sensory History: Reports: Hx Contacts or Glasses Denies: Hx Glaucoma, Hx Deafness, Hx Hearing Aid, Hx Hearing Problem Opthamlomology History: Reports: Hx Contacts or Glasses Denies: Hx Glaucoma Neurological History: Denies: Hx Headaches, Hx Seizures, Hx Transient Ischemic Attacks (TIA) Psychiatric History: Reports: Hx Anxiety, Hx Depression, Hx Inpatient Treatment , Hx Community Mental Health Tx, Hx Schizophrenia, Hx Bipolar Disorder, Hx Suicide Attempt Denies: Hx Eating Disorder, Hx Panic Disorder, Hx of Violent Episodes Against Others - Cancer History Hx Chemotherapy: No - Surgical History Surgery Procedure, Year, and Place: bilat thumb repairs, hernia repairs X 2, cholecystectomy, appendectomy Hx Anesthesia Reactions: No - Immunization History Date of Tetanus Vaccine: UTD Date of Influenza Vaccine: UTD Infectious Disease History: Denies: Hx Clostridium Difficile, Hx Hepatitis, Hx Human Immunodeficiency Virus (HIV), Hx of Known/Suspected MRSA, Hx Shingles, Hx Tuberculosis - Family History Known Family History: Positive: Cardiac Disease - [place], Other - schizophrenia, anxiety Negative: Hypertension, Diabetes Family History: Negative HTN/Cardiac/DM per EMR - Social History Alcohol Use: None Hx Substance Use: No Substance Use Type: Reports: None Hx Tobacco Use: Yes Smoking Status (MU): Heavy Every Day Tobacco Smoker Type: Cigarettes Amount Used/How Often: half a pack a day Have You Smoked in the Last Year: Yes Review of Systems Constitutional: Negative Eyes: Negative ENT: Negative Positive: Chest Pain Positive: Shortness Of Breath, Cough - Productive Gastrointestinal: Negative Genitourinary: Negative Musculoskeletal: Negative Skin: Negative Neurological: Negative Psychological: Normal All Other Systems Reviewed And Are Negative: Yes Physical Exam Triage Information Reviewed: Yes Vital Signs On Initial Exam: Initial Vitals Temp Pulse Resp BP Pulse Ox 98.9 F 103 30 124/55 97 05/20/17 16:24 05/20/17 16:24 05/20/17 16:24 05/20/17 16:24 05/20/17 16:24 Vital Signs Reviewed: Yes Appearance: Positive: Well-Appearing, No Pain Distress Skin: Positive: Warm, Skin Color Reflects Adequate Perfusion, Dry Head/Face: Positive: Normal Head/Face Inspection Eyes: Positive: EOMI, CRISTIAN ENT: Positive: Normal ENT inspection Neck: Positive: Supple, Nontender Respiratory/Lung Sounds: Positive: Breath Sounds Present, Wheezes - Bilaterally , Other - Moerate respiratory distress. Poor air movement. Cardiovascular: Positive: RRR Abdomen Description: Positive: Nontender, Soft Bowel Sounds: Positive: Present Musculoskeletal: Positive: Normal, Strength/ROM Intact Neurological: Positive: Normal, Sensory/Motor Intact, Alert, Oriented to Person Place, Time Psychiatric: Positive: Affect/Mood Appropriate Diagnostics - Vital Signs Vital Signs Temp Pulse Resp BP Pulse Ox 05/20/17 18:30 91 116/101 98 05/20/17 18:00 94 31 151/59 97 05/20/17 17:37 36 136/65 05/20/17 17:08 104 18 97 05/20/17 17:00 100 33 127/66 97 05/20/17 16:52 102 30 148/86 97 05/20/17 16:51 98.4 F 105 16 130/56 97 05/20/17 16:32 102 28 98 05/20/17 16:24 98.9 F 103 30 124/55 97 - Laboratory Lab Results: Lab Results 05/20/17 05/20/17 05/20/17 Range/Units 16:39 16:39 16:39 WBC 9.6 (3.5-10.8) 10^3/ul RBC 4.71 (4.0-5.4) 10^6/ul Hgb 12.8 (12.0-16.0) g/dl Hct 40 (35-47) % MCV 85 (80-97) fL MCH 27 (27-31) pg MCHC 32 (31-36) g/dl RDW 16 H (10.5-15) % Plt Count 165 (150-450) 10^3/ul MPV 8 (7.4-10.4) um3 Neut % (Auto) 84.9 H (38-83) % Lymph % (Auto) 9.9 L (25-47) % [place] % (Auto) 4.8 (1-9) % Eos % (Auto) 0.4 (0-6) % Baso % (Auto) 0 (0-2) % Absolute Neuts (auto) 8.1 H (1.5-7.7) 10^3/ul Absolute Lymphs (auto) 1.0 (1.0-4.8) 10^3/ul Absolute Monos (auto) 0.5 (0-0.8) 10^3/ul Absolute Eos (auto) 0 (0-0.6) 10^3/ul Absolute Basos (auto) 0 (0-0.2) 10^3/ul Absolute Nucleated RBC 0.01 10^3/ul Nucleated RBC % 0.1 INR (Anticoag Therapy) (0.89-1.11) APTT (26.0-36.3) seconds Sodium 138 (133-145) mmol/L Potassium 4.2 (3.5-5.0) mmol/L Chloride 104 (101-111) mmol/L Carbon Dioxide 31 (22-32) mmol/L Anion Gap 3 (2-11) mmol/L BUN 24 (6-24) mg/dL Creatinine 0.88 (0.51-0.95) mg/dL Est GFR ( Amer) 84.6 (>60) Est GFR (Non-Af Amer) 65.8 (>60) BUN/Creatinine Ratio 27.3 H (8-20) Glucose 88 (70-100) mg/dL Lactic Acid (0.5-2.0) mmol/L Calcium 9.1 (8.6-10.3) mg/dL Magnesium 2.0 (1.9-2.7) mg/dL Total Bilirubin 0.50 (0.2-1.0) mg/dL AST 11 L (13-39) U/L ALT 17 (7-52) U/L Alkaline Phosphatase 56 (34-104) U/L Troponin I 0.01 (<0.04) ng/mL C-Reactive Protein < 1.00 (< 5.00) mg/L B-Natriuretic Peptide 104 H ( - 100) pg/mL Total Protein 5.8 L (6.4-8.9) g/dL Albumin 3.7 (3.2-5.2) g/dL Globulin 2.1 (2-4) g/dL Albumin/Globulin Ratio 1.8 (1-3) Lipase 24 (11.0-82.0) U/L TSH 0.40 (0.34-5.60) mcIU/mL Urine Color Urine Appearance Urine pH (5-9) Ur Specific [place] (1.010-1.030) Urine Protein (Negative) Urine Ketones (Negative) Urine Blood (Negative) Urine Nitrate (Negative) Urine Bilirubin (Negative) Urine Urobilinogen (Negative) Ur Leukocyte Esterase (Negative) Urine Glucose (Negative) [place] 0.64 (0.6-1.2) mmol/L 05/20/17 05/20/17 05/20/17 Range/Units 16:39 16:39 17:50 WBC (3.5-10.8) 10^3/ul RBC (4.0-5.4) 10^6/ul Hgb (12.0-16.0) g/dl Hct (35-47) % MCV (80-97) fL MCH (27-31) pg MCHC (31-36) g/dl RDW (10.5-15) % Plt Count (150-450) 10^3/ul MPV (7.4-10.4) um3 Neut % (Auto) (38-83) % Lymph % (Auto) (25-47) % [place] % (Auto) (1-9) % Eos % (Auto) (0-6) % Baso % (Auto) (0-2) % Absolute Neuts (auto) (1.5-7.7) 10^3/ul Absolute Lymphs (auto) (1.0-4.8) 10^3/ul Absolute Monos (auto) (0-0.8) 10^3/ul Absolute Eos (auto) (0-0.6) 10^3/ul Absolute Basos (auto) (0-0.2) 10^3/ul Absolute Nucleated RBC 10^3/ul Nucleated RBC % INR (Anticoag Therapy) 1.80 H (0.89-1.11) APTT 27.3 (26.0-36.3) seconds Sodium (133-145) mmol/L Potassium (3.5-5.0) mmol/L Chloride (101-111) mmol/L Carbon Dioxide (22-32) mmol/L Anion Gap (2-11) mmol/L BUN (6-24) mg/dL Creatinine (0.51-0.95) mg/dL Est GFR ( Amer) (>60) Est GFR (Non-Af Amer) (>60) BUN/Creatinine Ratio (8-20) Glucose (70-100) mg/dL Lactic Acid 0.9 (0.5-2.0) mmol/L Calcium (8.6-10.3) mg/dL Magnesium (1.9-2.7) mg/dL Total Bilirubin (0.2-1.0) mg/dL AST (13-39) U/L ALT (7-52) U/L Alkaline Phosphatase (34-104) U/L Troponin I (<0.04) ng/mL C-Reactive Protein (< 5.00) mg/L B-Natriuretic Peptide ( - 100) pg/mL Total Protein (6.4-8.9) g/dL Albumin (3.2-5.2) g/dL Globulin (2-4) g/dL Albumin/Globulin Ratio (1-3) Lipase (11.0-82.0) U/L TSH (0.34-5.60) mcIU/mL Urine Color Straw Urine Appearance Clear Urine pH 5 (5-9) Ur Specific [place] 1.010 (1.010-1.030) Urine Protein Negative (Negative) Urine Ketones Negative (Negative) Urine Blood Negative (Negative) Urine Nitrate Negative (Negative) Urine Bilirubin Negative (Negative) Urine Urobilinogen Negative (Negative) Ur Leukocyte Esterase Negative (Negative) Urine Glucose Negative (Negative) [place] (0.6-1.2) mmol/L Result Diagrams: 05/20/17 16:39 05/20/17 16:39 Lab Statement: Any lab studies that have been ordered have been reviewed, and results considered in the medical decision making process. - Radiology CXR Xray Interpretation: No Acute Changes - Stigmata of obstructive lung disease. No acute pulmonary or cardiac process evident. ED PHYSICIAN AGREEABLE Radiology Interpretation Completed By: Radiologist - EKG 1 EKG Interpretation: 16:44 - SINUS TACHYCARDIA @ [address], NO ECTOPY Disposition - Course Course Of Treatment: PATIENT WITH IMPROVEMENT AFTER ONE DUONEB, SOLUMEDROL AND IV ABX. STILL SOB. SECOND DUONEB ORDERED; DISPOSITION PENDING AT SHIFT CHANGE. - Diagnoses Provider Diagnoses: COPD exacerbation, Bronchitis Discharge - Discharge Plan Condition: Stable Disposition: OTHER Discharge Disposition Comment: . Referrals: Tom Schrader MD [Primary Care Provider] - The documentation as recorded by the Gisela kiran Edward accurately reflects the service I personally performed and the decisions made by me, Graham Rendon MD.
[2017-05-20] MEDS ORDERED: Levofloxacin 750 MG IVPREMIX(* 750 MG/150 ML BAG IVPB ONE (19:06)
[2017-05-20 22:16] VITALS: BP 149/74
--- NOTE | 2017-05-21 13:16 | ED ---
Benoit, Carmen Chandler, scribed for Ene Young MD on 05/20/17 at 1959 . Progress - Progress Note Progress Note: Pt was signed out from Dr. Rendon, pending disposition, awaiting second Duoneb treatment. Re-Evaluation - Re-Evaluation First Eval Re-Evaluation Time: 19:59 Change: Improved Comment: Pt reports that she is feeling significantly better after the second DuoNeb treatment and that she is alright with being D/C to home. Confirms she has O2 at home, but no Duoneb treatments. Expalined that she will be receiving Levaquin at home for 5 days, which she is receiving by IV in the ED upon reevaluation. Denies edema and reports she has been sick all day. Upon evaluation, pt has coarse rhonchi and scattered wheezes throughout. She has no retractions and is doing abdominal breathing. She speaks in full sentences with no pursed lip breathing.Heart is regular rate and rhythm. Second Eval Re-Evaluation Time: 20:59 Change: Improved Comment: Pt reports that her Abx pump ceased and that she continues to experience improved sx. Pt declines further breathing treatment. Course/Dx - Course Course Of Treatment: Pt was signed out from Dr. Renodn, pending disposition, awaiting second DuoNeb treatment. Upon reevaluation, pt reports that she is feeling significantly better after the second DuoNeb treatment and that she is alright with being D/C to home. Confirms she has O2 at home, but no Duoneb treatments. The pt denies edema nad reports she has been sick all day. Upon evaluation, pt has coarse rhonchi and scattered wheezes throughout. She has no retractions and is doing abdominal breathing. She speaks in full sentences with no pursed lip breathing. Heart is regular rate and rhythm. Patient is stable and will be D/C to home with Dx of COPD exacerbation and bronchitis with Rx for Levaquin and a follow up with her PCP. She understands and agrees. Elevated BP noted and advised to f/u with PCP. - Diagnoses Provider Diagnoses: COPD exacerbation, Bronchitis The documentation as recorded by the Ramesh kiran Rebecca accurately reflects the service I personally performed and the decisions made by me, Ene Young MD.
== END 2017-05-20 22:16 | disposition home or self-care (01) ==
LOC: ED 16:17
DX: J44.1 Chronic obstructive pulmonary disease with (acute) exacerbation (principal); I25.10 Atherosclerotic heart disease of native coronary artery without angina pectoris; Z79.01 Long term (current) use of anticoagulants; Z86.718 Personal history of other venous thrombosis and embolism; E78.00 Pure hypercholesterolemia, unspecified; I10 Essential (primary) hypertension; I73.9 Peripheral vascular disease, unspecified; F17.210 Nicotine dependence, cigarettes, uncomplicated
CPT/HCPCS: 36415; 71010; 80053; 80178; 81003; 83605; 83690; 83735; 83880; 84443; 84484; 85025; 85610; 85730; 86140; 87040; 93005; 94640; 96374; 96375; 99283; A9270-GY; J2930

== ENCOUNTER 2017-05-21 19:45 | Inpatient (IN) | payer MEDICARE, MEDICAID ==
[2017-05-21] MEDS ORDERED: Albuterol/Ipratropium NEB.SOL* Albuterol 2.5 MG/Ipratropium 0.5 MG 3 ML INH ONE (19:51)
[2017-05-21] MEDS ORDERED: NS 0.9% 1000 ML* 1,000 ML IV SCH ×2 (20:00→21:45)
[2017-05-21] MEDS ORDERED: Nitroglycerin TAB 0.4 MG* 0.4 MG TAB SL ONE (20:24)
[2017-05-21 20:35] LABS: Hematocrit 37 % (35-47); Hemoglobin 12.2 g/dl (12.0-16.0); Mean Corpuscular HGB Conc 33 g/dl (31-36); Mean Corpuscular Hemoglobin 28 pg (27-31); Mean Corpuscular Volume 85 fL (80-97); Mean Platelet Volume 8 um3 (7.4-10.4); Red Cell Distribution Width 17 % (10.5-15); White Blood Count 10.8 10^3/ul (3.5-10.8)
--- NOTE | 2017-05-21 20:35 | RAD ---
INDICATION: Short of breath COMPARISON: May 20, 2017 TECHNIQUE: An AP portable view obtained at 2029 hours is submitted. FINDINGS: Bones/Soft Tissues: There are no acute bony findings. Cardiomediastinal: The cardiomediastinal silhouette is normal. Lungs: There are no infiltrates. There is mild hyperinflation. Pleura: There are no pleural effusions. Other: None IMPRESSION: NO ACTIVE DISEASE.
[2017-05-21 20:51] LABS: ALT 17 U/L (7-52); AST 11 U/L (13-39); Albumin 3.8 g/dL (3.2-5.2); Alkaline Phosphatase 57 U/L (34-104); Anion Gap 5 mmol/L (2-11); Blood Urea Nitrogen 23 mg/dL (6-24); C Reactive Protein < 1.00 mg/L (< 5.00); CO2 Carbon Dioxide 31 mmol/L (22-32); Calcium 9.4 mg/dL (8.6-10.3); Chloride 103 mmol/L (101-111); Creatine Kinase 23 U/L (10-223); EGFR Non-African American 56.7 (>60); Globulin 1.9 g/dL (2-4); Glucose 92 mg/dL (70-100); Lipase 37 U/L (11.0-82.0); Magnesium 3.4 mg/dL (1.9-2.7); Sodium 139 mmol/L (133-145); Total Protein 5.7 g/dL (6.4-8.9)
[2017-05-21 20:54] LABS: Troponin I 0.02 ng/mL (<0.04)
[2017-05-21 21:40] LABS: TSH (Thyroid Stimulating Horm) 0.73 mcIU/mL (0.34-5.60)
[2017-05-21] MEDS ORDERED: Albuterol 2.5 MG/3 ML NEB.SOL* (0.083%) INH PRN (21:43)
[2017-05-21] MEDS ORDERED: CMCS: Melatonin (NF) 3 MG TAB PO PRN (21:43)
[2017-05-21] MEDS ORDERED: methylPREDNISolone 125 MG* 2 ML VIAL IV ONE (21:44)
[2017-05-21] MEDS ORDERED: Ondansetron INJ* 2 MG/ML VIAL IV PRN (21:44)
--- NOTE | 2017-05-21 21:46 | HP ---
H&P (Free Text) History and Physical: PCP: Reuben Schrader MD Date/Time of Evaluation: 05/21/20172119 CC: chest pain, SOB HPI: Mrs Camejo is a 61YO female with complex PMedHx as outlined below with frequent ED visits for SOB presents this evening with onset of SOB this evening which is not unusual for her COPD and ongoing tobacco use. However, after about 2 hours she developed squeezing substernal chest pressure 8/10 at worst, radiating down the L arm associated with sweating, but no nausea, light- headedness, palpitations, or other issues. She denies F/C, increase in cough, or chest congestion. She became concerned and called EMS. Currently her pain is currently resolved. It was exacerbated by standing and walking, improved with rest. PMedHx COPD PAOD mild/mod aortic regurgitation diastolic dysfunction HTN HLD HX DVT IBS bipolar disorder schizophrenia anxiety depression Ambulatory Orders Nursing to reconcile. Montelukast Sodium TAB* [Singulair 10 MG TAB*] 10 mg PO DAILY 10/29/12 Esomeprazole(NF) [Nexium(NF)] 40 mg PO DAILY 09/29/15 Al Hydrox/Mg Hydrox/Simet LIQ* [Maalox Plus*] 30 ml PO DAILY PRN 12/29/15 Mirtazapine 7.5 mg PO BEDTIME 12/30/15 Isosorbide Mononitrate ER TAB* [Imdur ER TAB*] 30 mg PO DAILY #30 tab.er Gabapentin [Neurontin] 100 mg PO BID 01/19/16 Fluticasone/Vilanterol MDI(NF) [Breo Ellipta MDI 100/25(NF)] 1 puff INH DAILY Metoprolol Tartrate [Lopressor] 25 mg PO BID 01/24/17 Albuterol 2.5MG/3ML (0.083%)* [Ventolin 2.5 MG/3 ML NEB.GINETTE*] 2.5 mg INH Q2H PRN #0 ml 01/26/17 [place] Carbonate 300 mg PO BID 02/17/17 oxyCODONE/Acetamin 5/325 MG* [Percocet 5/325 TAB*] 1 tab PO Q6H PRN #20 tab MDD 4 03/18/17 Olanzapine [Zyprexa] 30 mg PO QPM 05/01/17 Nicotine Inhaler* 10 inh INH Q2H PRN #50 inh 05/04/17 Warfarin TAB(*) [Coumadin TAB(*)] 2 mg PO 1700 05/14/17 Xanax TAB* 0.25 mg PO Q6H PRN 05/14/17 Albuterol inh POWDER (NF) [Proair Respiclick] 2 puff IN Q4H PRN #0 05/17/17 Atorvastatin* [Lipitor 10 MG*] 10 mg PO 1700 #30 tab 05/17/17 Levofloxacin TAB* [Levaquin 750 MG TAB*] 750 mg PO DAILY #2 tab 05/17/17 predniSONE TAB* [Deltasone TAB*] 10 mg PO SEE INSTRUCTIONS #33 tab 05/17/17 Levofloxacin TAB* [Levaquin TAB*] 750 mg PO DAILY #4 tab 05/20/17 Allergies Bupropion [From Wellbutrin] Allergy (Severe, Verified 05/18/17 22:00) Agitation seizures. Cephalosporins Allergy (Severe, Verified 05/18/17 22:00) Agitation seizures. Penicillins [PCN] Allergy (Intermediate, Verified 05/18/17 22:00) Hives Chlorpromazine Adverse Reaction (Severe, Verified 05/18/17 22:00) Diarrhea and hives. Erythromycin Adverse Reaction (Intermediate, Verified 05/18/17 22:00) Diarrhea Tobramycin Adverse Reaction (Intermediate, Verified 05/18/17 22:00) Diarrhea PSurgHx appendectomy hernia repair RLE stent SocHx: 1/2 PPD cigarettes w/ ~40PYHX, denies alcohol and recreational drugs; single, lives alone; full code status FamHx: positive for COPD, HTN, HLD, CAD ROS: as above, otherwise reviewed and all were negative Constitutional: NAD, normally developed, obese white female vitals: Vital Signs Temp 36.8 C 05/21/17 20:04 Pulse 106 05/21/17 20:04 Resp 34 05/21/17 20:04 BP 146/52 05/21/17 20:04 Pulse Ox 95 05/21/17 20:04 Intake & Output 05/20/17 05/21/17 05/21/17 23:59 11:59 23:59 Weight 80.286 kg HEENM: atraumatic; sclera/conjunctiva: non-icteric/clear; hearing: clinically intact; oropharynx: clear, mucosa moist Neck: soft tissue: non-tender; thyroid: normal Pulmonary: mid- to end-inspiratory wheeze on the R, diminished throughout on L, scant diffuse crackle B, fair to poor aeration, no accessory muscle use CV: TR/RR, normal S1S2, no carotid bruit, no jugular venous distention, 2+ B DP/ PT, trace LLE edema (chronic per patient) Abdominal: soft, non-distended, non-tender, no rebound/guarding/rigidity, normoactive bowel sounds, no hepatosplenomegaly or masses, no costovertebral angle tenderness Musculoskeletal: general: grossly intact; gait: stable Integumental: normal appearance and texture of exposed skin Psychiatric orientation: AA&O to PPS affect: calm mood: cooperative eye contact: fair to good content: reliable responses: timely insight: fair to poor Testing: Lab Results 05/21/17 05/21/17 05/21/17 Range/Units 20:22 20:22 20:22 WBC (3.5-10.8) 10^3/ul RBC (4.0-5.4) 10^6/ul Hgb (12.0-16.0) g/dl Hct (35-47) % MCV (80-97) fL MCH (27-31) pg MCHC (31-36) g/dl RDW (10.5-15) % Plt Count (150-450) 10^3/ul MPV (7.4-10.4) um3 Neut % (Auto) (38-83) % Lymph % (Auto) (25-47) % [place] % (Auto) (1-9) % Eos % (Auto) (0-6) % Baso % (Auto) (0-2) % Absolute Neuts (auto) (1.5-7.7) 10^3/ul Absolute Lymphs (auto) (1.0-4.8) 10^3/ul Absolute Monos (auto) (0-0.8) 10^3/ul Absolute Eos (auto) (0-0.6) 10^3/ul Absolute Basos (auto) (0-0.2) 10^3/ul Absolute Nucleated RBC 10^3/ul Nucleated RBC % INR (Anticoag Therapy) 2.14 H (0.89-1.11) APTT 27.9 (26.0-36.3) seconds D-Dimer, Quantitative < 200 (Less Than 230) ng/mL Sodium 139 (133-145) mmol/L Potassium 4.0 (3.5-5.0) mmol/L Chloride 103 (101-111) mmol/L Carbon Dioxide 31 (22-32) mmol/L Anion Gap 5 (2-11) mmol/L BUN 23 (6-24) mg/dL Creatinine 1.00 H (0.51-0.95) mg/dL Est GFR ( Amer) 73.0 (>60) Est GFR (Non-Af Amer) 56.7 (>60) BUN/Creatinine Ratio 23.0 H (8-20) Glucose 92 (70-100) mg/dL Lactic Acid (0.5-2.0) mmol/L Calcium 9.4 (8.6-10.3) mg/dL Magnesium 3.4 H (1.9-2.7) mg/dL Total Bilirubin 0.40 (0.2-1.0) mg/dL AST 11 L (13-39) U/L ALT 17 (7-52) U/L Alkaline Phosphatase 57 (34-104) U/L Total Creatine Kinase 23 (10-223) U/L CK-MB (CK-2) 3.4 (0.6-6.3) ng/mL Troponin I 0.02 (<0.04) ng/mL C-Reactive Protein < 1.00 (< 5.00) mg/L B-Natriuretic Peptide 99 ( - 100) pg/mL Total Protein 5.7 L (6.4-8.9) g/dL Albumin 3.8 (3.2-5.2) g/dL Globulin 1.9 L (2-4) g/dL Albumin/Globulin Ratio 2.0 (1-3) Lipase 37 (11.0-82.0) U/L TSH Pending 05/21/17 05/21/17 Range/Units 20:22 20:22 WBC 10.8 (3.5-10.8) 10^3/ul RBC 4.40 (4.0-5.4) 10^6/ul Hgb 12.2 (12.0-16.0) g/dl Hct 37 (35-47) % MCV 85 (80-97) fL MCH 28 (27-31) pg MCHC 33 (31-36) g/dl RDW 17 H (10.5-15) % Plt Count 165 (150-450) 10^3/ul MPV 8 (7.4-10.4) um3 Neut % (Auto) 79.7 (38-83) % Lymph % (Auto) 13.8 L (25-47) % [place] % (Auto) 4.9 (1-9) % Eos % (Auto) 1.4 (0-6) % Baso % (Auto) 0.2 (0-2) % Absolute Neuts (auto) 8.6 H (1.5-7.7) 10^3/ul Absolute Lymphs (auto) 1.5 (1.0-4.8) 10^3/ul Absolute Monos (auto) 0.5 (0-0.8) 10^3/ul Absolute Eos (auto) 0.1 (0-0.6) 10^3/ul Absolute Basos (auto) 0 (0-0.2) 10^3/ul Absolute Nucleated RBC 0 10^3/ul Nucleated RBC % 0 INR (Anticoag Therapy) (0.89-1.11) APTT (26.0-36.3) seconds D-Dimer, Quantitative (Less Than 230) ng/mL Sodium (133-145) mmol/L Potassium (3.5-5.0) mmol/L Chloride (101-111) mmol/L Carbon Dioxide (22-32) mmol/L Anion Gap (2-11) mmol/L BUN (6-24) mg/dL Creatinine (0.51-0.95) mg/dL Est GFR ( Amer) (>60) Est GFR (Non-Af Amer) (>60) BUN/Creatinine Ratio (8-20) Glucose (70-100) mg/dL Lactic Acid 1.0 (0.5-2.0) mmol/L Calcium (8.6-10.3) mg/dL Magnesium (1.9-2.7) mg/dL Total Bilirubin (0.2-1.0) mg/dL AST (13-39) U/L ALT (7-52) U/L Alkaline Phosphatase (34-104) U/L Total Creatine Kinase (10-223) U/L CK-MB (CK-2) (0.6-6.3) ng/mL Troponin I (<0.04) ng/mL C-Reactive Protein (< 5.00) mg/L B-Natriuretic Peptide ( - 100) pg/mL Total Protein (6.4-8.9) g/dL Albumin (3.2-5.2) g/dL Globulin (2-4) g/dL Albumin/Globulin Ratio (1-3) Lipase (11.0-82.0) U/L TSH ECG, personally reviewed: sinus tachycardia rate 105, no ischemia, Q-waves V4-6 , I, & II/III/AVF CXR, personally reviewed: IMPRESSION: NO ACTIVE DISEASE. Impression: 61F presenting with chest pain for r/o ACS and concurrent COPD exacerbation DIAGNOSIS & PLAN Primary chest pain : telemetry : aspirin : hold metoprolol 2nd concurrent COPD exacerbation : supplemental oxygen : trend troponin : last stress test 01/2016 was low risk with ? small area of anterior wall ischemia : consider stress testing inpt vs outpt once COPD exac adequately controlled : supportive care COPD exacerbation : albuterol nebs : mometasone/formoterol : tiotropium : methylprednisolone : guaifenesin : azithromycin : incentive spirometry : smoking cessation consulted/advised, low motivation : supplemental oxygen : supportive care Secondary HTN : review meds once reconciled HLD : review meds once reconciled HX DVT : review meds once reconciled bipolar disorder : review meds once reconciled schizophrenia : review meds once reconciled depression : review meds once reconciled GERD : review meds once reconciled Admission Rational: observation for chest pain & COPD exacerbation DVTp: warfarin Code Status: full
[2017-05-22] MEDS ORDERED: Mouth Piece, Nicotine* 1 EACH CARTRIDGE ONE (00:02)
[2017-05-22] MEDS: Nicotine Inhaler* 10 MG AMP INH PRN ×7 (00:05→23:58)
[2017-05-22] MEDS: Azithromycin IV(*) 500 MG in NS 0.9% 250 ML* 250 ML IVPB SCH ×2 (00:05→23:50)
[2017-05-22] MEDS: Albuterol 2.5 MG/3 ML NEB.SOL* (0.083%) INH SCH ×4 (00:35→19:37)
--- NOTE | 2017-05-22 00:41 | ED ---
Boo Laboy Nikita, scribed for Graham Rendon MD on 05/21/17 at 2028 . HPI Chest Pain - HPI Summary HPI Summary: This patient is a 61 year old F BIBA to ED with a chief complaint of CP since earlier today. Symptoms worsened in the evening. Pt reports the pain was so bad that she could not stand. The CC is described as pressure, squeezing, and radiating down the L arm. The patient rates the pain 8/10 in severity. Symptoms aggravated by standing. Symptoms alleviated by nothing. Patient reports SOB and COPD exacerbation. Patient denies Hx of CAD and DM. Tobacco use disorder. - History of Current Complaint Chief Complaint: EDChestPainROMI Time Seen by Provider: 05/21/17 20:04 Hx Obtained From: Patient Onset/Duration: Started Hours Ago - earlier today, worsened in the evening Timing: Constant Initial Severity: Severe Current Severity: Severe Pain Intensity: 8 Pain Scale Used: 0-10 Numeric Chest Pain Radiates: Yes Chest Pain Radiates To:: Arm - L arm Character: Pressure/Squeezing Aggravating Factor(s): Position - Standing Alleviating Factor(s): Nothing Associated Signs and Symptoms: Positive: Other: - Patient reports SOB and COPD exacerbation. - Additional Pertinent History Primary Care Physician: [id number] - Allergy/Home Medications Allergies/Adverse Reactions: Allergies Allergy/AdvReac Type Severity Reaction Status Date / Time Bupropion [From Wellbutrin] Allergy Severe Agitation Verified 05/18/17 22:00 Cephalosporins Allergy Severe Agitation Verified 05/18/17 22:00 Penicillins [PCN] Allergy Intermediate Hives Verified 05/18/17 22:00 Chlorpromazine AdvReac Severe Diarrhea Verified 05/18/17 22:00 Erythromycin AdvReac Intermediate Diarrhea Verified 05/18/17 22:00 Tobramycin AdvReac Intermediate Diarrhea Verified 05/18/17 22:00 PMH/Surg Hx/FS Hx/Imm Hx Endocrine/Hematology History: Reports: Hx Anticoagulant Therapy, Other Endocrine /Hematological Disorders - L leg DVT Denies: Hx Diabetes, Hx Systemic Lupus Erythematosus, Hx Thyroid Disease Cardiovascular History: Reports: Hx Angina, Hx Coronary Artery Disease, Hx Deep Vein Thrombosis, Hx Hypercholesterolemia, Hx Hypertension, Hx Peripheral Vascular Disease, Other Cardiovascular Problems/Disorders - PERIPHERAL ARTERY DISEASE; CAD; DVT Denies: Hx Congestive Heart Failure, Hx Pacemaker/ICD Respiratory History: Reports: Hx Asthma, Hx Chronic Bronchitis, Hx Chronic Obstructive Pulmonary Disease (COPD), Hx Pneumonia, Hx Seasonal Allergies, Other Respiratory Problems/Disorders - PNA Denies: Hx Cystic Fibrosis, Hx Lung Cancer, Hx Pleural Effusion, Hx Pulmonary Edema, Hx Pulmonary Embolism, Hx Sleep Apnea GI History: Reports: Hx Gall Bladder Disease - removed, Hx Gastroesophageal Reflux Disease, Hx Irritable Bowel, Other GI Disorders - hernia repair X 2 Denies: Hx Cirrhosis, Hx Crohn's Disease, Hx Diverticulosis History: Denies: Hx Dialysis, Hx Renal Disease Musculoskeletal History: Denies: Hx Arthritis, Hx Rheumatoid Arthritis, Hx Osteoporosis Sensory History: Reports: Hx Contacts or Glasses Denies: Hx Glaucoma, Hx Deafness, Hx Hearing Aid, Hx Hearing Problem Opthamlomology History: Reports: Hx Contacts or Glasses Denies: Hx Glaucoma Neurological History: Denies: Hx Headaches, Hx Seizures, Hx Transient Ischemic Attacks (TIA) Psychiatric History: Reports: Hx Anxiety, Hx Depression, Hx Inpatient Treatment , Hx Community Mental Health Tx, Hx Schizophrenia, Hx Bipolar Disorder, Hx Suicide Attempt Denies: Hx Eating Disorder, Hx Panic Disorder, Hx of Violent Episodes Against Others - Cancer History Hx Chemotherapy: No - Surgical History Surgery Procedure, Year, and Place: bilat thumb repairs, hernia repairs X 2, cholecystectomy, appendectomy Hx Anesthesia Reactions: No - Immunization History Date of Tetanus Vaccine: UTD Date of Influenza Vaccine: UTD Infectious Disease History: Denies: Hx Clostridium Difficile, Hx Hepatitis, Hx Human Immunodeficiency Virus (HIV), Hx of Known/Suspected MRSA, Hx Shingles, Hx Tuberculosis, Traveled Outside the [place] in Last 30 Days - Family History Known Family History: Positive: Cardiac Disease - NM, Other - schizophrenia, anxiety Negative: Hypertension, Diabetes Family History: Negative HTN/Cardiac/DM per EMR - Social History Alcohol Use: None Hx Substance Use: No Substance Use Type: Reports: None Hx Tobacco Use: Yes Smoking Status (MU): Heavy Every Day Tobacco Smoker Type: Cigarettes Amount Used/How Often: half a pack a day Have You Smoked in the Last Year: Yes Review of Systems Positive: Chest Pain - radiates down L arm Positive: Shortness Of Breath, Other - COPD exacerbation All Other Systems Reviewed And Are Negative: Yes Physical Exam - Summary Physical Exam Summary: General: well-appearing, mild pain distress Skin: warm, color reflects adequate perfusion, dry Head: normal Eyes: EOMI, CRISTIAN ENT: normal Neck: supple, nontender Respiratory: breath sounds present, mild respiratory distress, bilateral wheezes and rhonchi. Cardiovascular: RRR Abdomen: soft, nontender Bowel: present Musculoskeletal: normal, strength/ROM intact Neurological: normal, sensory/motor intact, A&O x3 Psychological: affect/mood appropriate Triage Information Reviewed: Yes Vital Signs On Initial Exam: Initial Vitals Temp Pulse Resp BP Pulse Ox 98.3 F 106 35 146/52 95 05/21/17 19:55 05/21/17 19:55 05/21/17 19:55 05/21/17 19:55 05/21/17 19:55 Vital Signs Reviewed: Yes - [place] Coma Scale Coma Scale Total: 15 Diagnostics - Vital Signs Vital Signs Temp Pulse Resp BP Pulse Ox 05/21/17 20:04 98.3 F 106 34 146/52 95 05/21/17 19:55 98.3 F 106 35 146/52 95 - Laboratory Lab Results: Lab Results 05/21/17 05/21/17 05/21/17 Range/Units 20:22 20:22 20:22 WBC (3.5-10.8) 10^3/ul RBC (4.0-5.4) 10^6/ul Hgb (12.0-16.0) g/dl Hct (35-47) % MCV (80-97) fL MCH (27-31) pg MCHC (31-36) g/dl RDW (10.5-15) % Plt Count (150-450) 10^3/ul MPV (7.4-10.4) um3 Neut % (Auto) (38-83) % Lymph % (Auto) (25-47) % [place] % (Auto) (1-9) % Eos % (Auto) (0-6) % Baso % (Auto) (0-2) % Absolute Neuts (auto) (1.5-7.7) 10^3/ul Absolute Lymphs (auto) (1.0-4.8) 10^3/ul Absolute Monos (auto) (0-0.8) 10^3/ul Absolute Eos (auto) (0-0.6) 10^3/ul Absolute Basos (auto) (0-0.2) 10^3/ul Absolute Nucleated RBC 10^3/ul Nucleated RBC % INR (Anticoag Therapy) 2.14 H (0.89-1.11) APTT 27.9 (26.0-36.3) seconds D-Dimer, Quantitative < 200 (Less Than 230) ng/mL Sodium 139 (133-145) mmol/L Potassium 4.0 (3.5-5.0) mmol/L Chloride 103 (101-111) mmol/L Carbon Dioxide 31 (22-32) mmol/L Anion Gap 5 (2-11) mmol/L BUN 23 (6-24) mg/dL Creatinine 1.00 H (0.51-0.95) mg/dL Est GFR ( Amer) 73.0 (>60) Est GFR (Non-Af Amer) 56.7 (>60) BUN/Creatinine Ratio 23.0 H (8-20) Glucose 92 (70-100) mg/dL Lactic Acid (0.5-2.0) mmol/L Calcium 9.4 (8.6-10.3) mg/dL Magnesium 3.4 H (1.9-2.7) mg/dL Total Bilirubin 0.40 (0.2-1.0) mg/dL AST 11 L (13-39) U/L ALT 17 (7-52) U/L Alkaline Phosphatase 57 (34-104) U/L Total Creatine Kinase 23 (10-223) U/L CK-MB (CK-2) 3.4 (0.6-6.3) ng/mL Troponin I 0.02 (<0.04) ng/mL C-Reactive Protein < 1.00 (< 5.00) mg/L B-Natriuretic Peptide 99 ( - 100) pg/mL Total Protein 5.7 L (6.4-8.9) g/dL Albumin 3.8 (3.2-5.2) g/dL Globulin 1.9 L (2-4) g/dL Albumin/Globulin Ratio 2.0 (1-3) Lipase 37 (11.0-82.0) U/L TSH 0.73 (0.34-5.60) mcIU/mL 05/21/17 05/21/17 Range/Units 20:22 20:22 WBC 10.8 (3.5-10.8) 10^3/ul RBC 4.40 (4.0-5.4) 10^6/ul Hgb 12.2 (12.0-16.0) g/dl Hct 37 (35-47) % MCV 85 (80-97) fL MCH 28 (27-31) pg MCHC 33 (31-36) g/dl RDW 17 H (10.5-15) % Plt Count 165 (150-450) 10^3/ul MPV 8 (7.4-10.4) um3 Neut % (Auto) 79.7 (38-83) % Lymph % (Auto) 13.8 L (25-47) % [place] % (Auto) 4.9 (1-9) % Eos % (Auto) 1.4 (0-6) % Baso % (Auto) 0.2 (0-2) % Absolute Neuts (auto) 8.6 H (1.5-7.7) 10^3/ul Absolute Lymphs (auto) 1.5 (1.0-4.8) 10^3/ul Absolute Monos (auto) 0.5 (0-0.8) 10^3/ul Absolute Eos (auto) 0.1 (0-0.6) 10^3/ul Absolute Basos (auto) 0 (0-0.2) 10^3/ul Absolute Nucleated RBC 0 10^3/ul Nucleated RBC % 0 INR (Anticoag Therapy) (0.89-1.11) APTT (26.0-36.3) seconds D-Dimer, Quantitative (Less Than 230) ng/mL Sodium (133-145) mmol/L Potassium (3.5-5.0) mmol/L Chloride (101-111) mmol/L Carbon Dioxide (22-32) mmol/L Anion Gap (2-11) mmol/L BUN (6-24) mg/dL Creatinine (0.51-0.95) mg/dL Est GFR ( Amer) (>60) Est GFR (Non-Af Amer) (>60) BUN/Creatinine Ratio (8-20) Glucose (70-100) mg/dL Lactic Acid 1.0 (0.5-2.0) mmol/L Calcium (8.6-10.3) mg/dL Magnesium (1.9-2.7) mg/dL Total Bilirubin (0.2-1.0) mg/dL AST (13-39) U/L ALT (7-52) U/L Alkaline Phosphatase (34-104) U/L Total Creatine Kinase (10-223) U/L CK-MB (CK-2) (0.6-6.3) ng/mL Troponin I (<0.04) ng/mL C-Reactive Protein (< 5.00) mg/L B-Natriuretic Peptide ( - 100) pg/mL Total Protein (6.4-8.9) g/dL Albumin (3.2-5.2) g/dL Globulin (2-4) g/dL Albumin/Globulin Ratio (1-3) Lipase (11.0-82.0) U/L TSH (0.34-5.60) mcIU/mL Result Diagrams: 05/21/17 20:22 05/21/17 20:22 Lab Statement: Any lab studies that have been ordered have been reviewed, and results considered in the medical decision making process. - Radiology CXR Radiology Interpretation Completed By: Radiologist - No active disease. ED physician has reviewed this radiology report and agrees. - EKG 1954 Cardiac Rate: Tachycardia - 105 bpm EKG Rhythm: Sinus Tachycardia ST Segment: Normal EKG Interpretation: No activity Chest Pain Course/Dx - Course Course Of Treatment: ADMIT HOSPITALIST Assessment/Plan: This patient is a 61 year old F BIBA to ED with a chief complaint of CP since earlier today. Symptoms worsened in the evening. Pt reports the pain was so bad that she could not stand. The CC is described as pressure, squeezing, and radiating down the L arm. The patient rates the pain 8/ 10 in severity. Symptoms aggravated by standing. Symptoms alleviated by nothing. Patient reports SOB and COPD exacerbation. Patient denies Hx of CAD and DM. Tobacco use disorder. CXR reveals no acute disease. ED physician has reviewed this radiology report and agrees. EKG reveals sinus tachycardia, normal ST, and no activity. In the ED course, pt was given fluids. Pt will be admitted. Pt is agreeable with this plan. - Diagnoses Provider Diagnoses: Chest pain, COPD (chronic obstructive pulmonary disease) Discharge - Discharge Plan Condition: Stable Disposition: ADMITTED TO [facility] documentation as recorded by the Boo kiran Nikita accurately reflects the service I personally performed and the decisions made by me, Graham Rendon MD.
[2017-05-22 02:22] LABS: Urine Bilirubin Negative (Negative); Urine Glucose Negative (Negative); Urine Nitrite Negative (Negative)
[2017-05-22] MEDS: methylPREDNISolone SOD 40 MG* 1 ML VIAL IV SCH ×3 (03:38→19:58)
[2017-05-22] MEDS: Omeprazole CAP* 20 MG PO SCH (06:17)
[2017-05-22 06:51] LABS: Troponin I 0.01 ng/mL (<0.04)
[2017-05-22] MEDS ORDERED: Spiriva Inhaler DEVICE* 1 EACH DEVICE INH ONE (09:00)
[2017-05-22] MEDS ORDERED: methylPREDNISolone SOD 40 MG* 1 ML VIAL IV SCH (09:00)
[2017-05-22] MEDS ORDERED: Mometasone/Formoter 200/5 MDI INH SCH (09:00)
[2017-05-22] MEDS ORDERED: oxyCODONE/Acetamin 5/325 MG* TAB PO PRN (09:17)
[2017-05-22] MEDS ORDERED: Al Hydrox/Mg Hydrox/Simet LIQ* 30 ML UDC PO PRN (09:17)
[2017-05-22] MEDS ORDERED: Nicotine Inhaler* 10 MG AMP INH PRN (09:17)
[2017-05-22] MEDS: guaiFENesin ER TAB 600 MG PO SCH ×2 (09:22→20:53)
[2017-05-22] MEDS: Docusate CAP* 100 MG PO SCH ×2 (09:22→20:55)
[2017-05-22] MEDS: Aspirin EC Low Dose* 81 MG TAB.EC PO SCH (09:22)
--- NOTE | 2017-05-22 09:23 | PN ---
Subjective Date of Service: 05/22/17 Interval History: Pt still, c/o SOB. as chest pain she describes "heaviness in the chest due to feeing hard to breathe" Objective Active Medications: Acetaminophen (Tylenol Tab*) 650 mg PO Q6H PRN PRN Reason: FEVER/PAIN Al Hydrox/Mg Hydrox/Simethicone (Maalox Plus*) 30 ml PO DAILY PRN PRN Reason: INDIGESTION Albuterol (Ventolin 2.5 Mg/3 Ml Neb.Tania*) 2.5 mg INH Q2H PRN PRN Reason: SOB/WHEEZING Albuterol (Ventolin 2.5 Mg/3 Ml Neb.Tania*) 2.5 mg INH [id number] AWAKE [facility] Last Admin: 05/22/17 00:35 Dose: 2.5 mg Aspirin (Aspirin Ec Low Dose*) 81 mg PO DAILY [facility] Atorvastatin Calcium (Lipitor*) 10 mg PO 1700 [facility] Docusate Sodium (Colace Cap*) 200 mg PO BID [facility] Fluticasone/Vilanterol (Breo Ellipta Mdi 100/25(Nf)) 1 puff INH DAILY [facility] Gabapentin (Neurontin Cap(*)) 100 mg PO BID [facility] Guaifenesin (Mucinex*) 1,200 mg PO BID [facility] Azithromycin 500 mg/ Sodium (Chloride) 250 mls @ 250 mls/hr IVPB Q24H [facility] Last Admin: 05/22/17 00:05 Dose: 250 mls/hr Isosorbide Mononitrate (Imdur Er Tab*) 30 mg PO DAILY [facility] [place] Carbonate ([place] Carbonate Tab*) 300 mg PO BID [facility] Melatonin (Melatonin (Nf)) 3 mg PO BEDTIME PRN; Protocol PRN Reason: Sleep Methylprednisolone Sodium Succinate (Solu-Medrol 40 Mg) 40 mg IV Q8H [facility] Last Admin: 05/22/17 03:38 Dose: 40 mg Mometasone Furoate/Formoterol Fumar (Dulera 200/5 Mdi*) 2 puff INH BID [facility] Montelukast Sodium (Singulair Tab*) 10 mg PO DAILY [facility] Nicotine (Nicotine Inhaler*) 10 mg INH Q2H PRN PRN Reason: CRAVING Last Admin: 05/22/17 03:37 Dose: 10 mg Nicotine (Nicotine Inhaler*) mg INH Q2H PRN PRN Reason: CRAVING Non-Formulary Medication (Xanax Tab*) 0.25 mg PO Q6H PRN PRN Reason: ANXIETY Non-Formulary Medication (Olanzapine [Zyprexa]) 30 mg PO QPM [facility] Omeprazole (Prilosec Cap*) 20 mg PO DAILY@0600 [facility] Last Admin: 05/22/17 06:17 Dose: 20 mg Ondansetron HCl (Zofran Inj*) 4 mg IV Q6H PRN PRN Reason: NAUSEA Oxycodone/Acetaminophen (Percocet 5/325 Tab*) 1 tab PO Q6H PRN PRN Reason: PAIN Tiotropium [place] (Spiriva Cap.Inh*) 1 cap INH DAILY [facility] Vital Signs 05/21/17 05/22/17 05/22/17 21:41 00:08 00:35 Temperature 97.7 F 97.6 F Pulse Rate 102 108 Respiratory 23 28 18 Rate Blood Pressure 143/61 137/69 (mmHg) O2 Sat by Pulse 98 99 98 Oximetry 05/22/17 05/22/17 03:13 07:42 Temperature 97.8 F 97.5 F Pulse Rate 111 56 Respiratory 20 20 Rate Blood Pressure 170/73 122/63 (mmHg) O2 Sat by Pulse 99 100 Oximetry Oxygen Devices in Use Now: Nasal Cannula - on 2 l 02 NS Appearance: 61 yo F in nAD, aAOx3 Eyes: No Scleral Icterus, PERRLA Ears/Nose/Mouth/Throat: NL Teeth, Lips, Gums, Mucous Membranes Moist Neck: NL Appearance and Movements; NL JVP, Trachea Midline Respiratory: Symmetrical Chest Expansion and Respiratory Effort, - - diffuse wheezes b/l Cardiovascular: NL Sounds; No Murmurs; No JVD, RRR Abdominal: NL Sounds; No Tenderness; No Distention, No Hepatosplenomegaly Lymphatic: No Cervical Adenopathy Extremities: No Edema, No Clubbing, Cyanosis Skin: No Rash or Ulcers, No Nodules or Sclerosis Neurological: Alert and Oriented x 3, NL Muscle Strength and Tone Result Diagrams: 05/21/17 20:22 05/21/17 20:22 Additional Lab and Data: Lab Results 05/21/17 05/21/17 05/21/17 Range/Units 20:22 20:22 20:22 WBC (3.5-10.8) 10^3/ul RBC (4.0-5.4) 10^6/ul Hgb (12.0-16.0) g/dl Hct (35-47) % MCV (80-97) fL MCH (27-31) pg MCHC (31-36) g/dl RDW (10.5-15) % Plt Count (150-450) 10^3/ul MPV (7.4-10.4) um3 Neut % (Auto) (38-83) % Lymph % (Auto) (25-47) % [place] % (Auto) (1-9) % Eos % (Auto) (0-6) % Baso % (Auto) (0-2) % Absolute Neuts (auto) (1.5-7.7) 10^3/ul Absolute Lymphs (auto) (1.0-4.8) 10^3/ul Absolute Monos (auto) (0-0.8) 10^3/ul Absolute Eos (auto) (0-0.6) 10^3/ul Absolute Basos (auto) (0-0.2) 10^3/ul Absolute Nucleated RBC 10^3/ul Nucleated RBC % INR (Anticoag Therapy) 2.14 H (0.89-1.11) APTT 27.9 (26.0-36.3) seconds D-Dimer, Quantitative < 200 (Less Than 230) ng/mL Sodium 139 (133-145) mmol/L Potassium 4.0 (3.5-5.0) mmol/L Chloride 103 (101-111) mmol/L Carbon Dioxide 31 (22-32) mmol/L Anion Gap 5 (2-11) mmol/L BUN 23 (6-24) mg/dL Creatinine 1.00 H (0.51-0.95) mg/dL Est GFR ( Amer) 73.0 (>60) Est GFR (Non-Af Amer) 56.7 (>60) BUN/Creatinine Ratio 23.0 H (8-20) Glucose 92 (70-100) mg/dL Lactic Acid (0.5-2.0) mmol/L Calcium 9.4 (8.6-10.3) mg/dL Magnesium 3.4 H (1.9-2.7) mg/dL Total Bilirubin 0.40 (0.2-1.0) mg/dL AST 11 L (13-39) U/L ALT 17 (7-52) U/L Alkaline Phosphatase 57 (34-104) U/L Total Creatine Kinase 23 (10-223) U/L CK-MB (CK-2) 3.4 (0.6-6.3) ng/mL Troponin I 0.02 (<0.04) ng/mL C-Reactive Protein < 1.00 (< 5.00) mg/L B-Natriuretic Peptide 99 ( - 100) pg/mL Total Protein 5.7 L (6.4-8.9) g/dL Albumin 3.8 (3.2-5.2) g/dL Globulin 1.9 L (2-4) g/dL Albumin/Globulin Ratio 2.0 (1-3) Lipase 37 (11.0-82.0) U/L TSH 0.73 (0.34-5.60) mcIU/mL 05/21/17 05/21/17 Range/Units 20:22 20:22 WBC 10.8 (3.5-10.8) 10^3/ul RBC 4.40 (4.0-5.4) 10^6/ul Hgb 12.2 (12.0-16.0) g/dl Hct 37 (35-47) % MCV 85 (80-97) fL MCH 28 (27-31) pg MCHC 33 (31-36) g/dl RDW 17 H (10.5-15) % Plt Count 165 (150-450) 10^3/ul MPV 8 (7.4-10.4) um3 Neut % (Auto) 79.7 (38-83) % Lymph % (Auto) 13.8 L (25-47) % [place] % (Auto) 4.9 (1-9) % Eos % (Auto) 1.4 (0-6) % Baso % (Auto) 0.2 (0-2) % Absolute Neuts (auto) 8.6 H (1.5-7.7) 10^3/ul Absolute Lymphs (auto) 1.5 (1.0-4.8) 10^3/ul Absolute Monos (auto) 0.5 (0-0.8) 10^3/ul Absolute Eos (auto) 0.1 (0-0.6) 10^3/ul Absolute Basos (auto) 0 (0-0.2) 10^3/ul Absolute Nucleated RBC 0 10^3/ul Nucleated RBC % 0 INR (Anticoag Therapy) (0.89-1.11) APTT (26.0-36.3) seconds D-Dimer, Quantitative (Less Than 230) ng/mL Sodium (133-145) mmol/L Potassium (3.5-5.0) mmol/L Chloride (101-111) mmol/L Carbon Dioxide (22-32) mmol/L Anion Gap (2-11) mmol/L BUN (6-24) mg/dL Creatinine (0.51-0.95) mg/dL Est GFR ( Amer) (>60) Est GFR (Non-Af Amer) (>60) BUN/Creatinine Ratio (8-20) Glucose (70-100) mg/dL Lactic Acid 1.0 (0.5-2.0) mmol/L Calcium (8.6-10.3) mg/dL Magnesium (1.9-2.7) mg/dL Total Bilirubin (0.2-1.0) mg/dL AST (13-39) U/L ALT (7-52) U/L Alkaline Phosphatase (34-104) U/L Total Creatine Kinase (10-223) U/L CK-MB (CK-2) (0.6-6.3) ng/mL Troponin I (<0.04) ng/mL C-Reactive Protein (< 5.00) mg/L B-Natriuretic Peptide ( - 100) pg/mL Total Protein (6.4-8.9) g/dL Albumin (3.2-5.2) g/dL Globulin (2-4) g/dL Albumin/Globulin Ratio (1-3) Lipase (11.0-82.0) U/L TSH (0.34-5.60) mcIU/mL Assess/Plan/Problems-Billing Assessment: Mrs. Camejo is a 61yo F with PMH of COPD on home O2, tobacco abuse , HTN, HLD, DVT, IBS, PVD, bipolar disorder, schizophrenia, who presented to ED with c/o chest pain and dyspnea, found to have COPD exacerbation. - Patient Problems (1) COPD exacerbation Comment: In significant bronchospasm today- continue azithromycin, duonebs. Chest pain reported in past, either with copd exacerbation or as her baseline. (2) Chest pain Comment: - ACS ruled out, no significant arrhythmias on Telemetry. (3) Tobacco abuse Comment: Patient advised if she continues to smoke, she'll . This episode is secondary to her smoking soon after discharge. Continue nicotine supplementation. (4) Hypertension Comment: - Controlled, metoprolol, held due to significant bronchospasm (5) Hx of deep venous thrombosis Comment: - Continue Warfarin. (6) Schizoaffective disorder, bipolar type Comment: Stable. Continue Zyprexa, lithium and mirtazapine. (7) DVT prophylaxis Current Visit: No Comment: - Warfarin , INR>2 Status and Disposition: OBV needs to be changed to inpatient due to pt's COPD exacerbation and need of at least 2 days of hospital stay
[2017-05-22] MEDS: Tiotropium CAP.INH* CAP.INH/18 MCG (USE ORDER SET !) INH SCH (09:52)
[2017-05-22 10:13] LABS: BUN/Creatinine Ratio 27.9 (8-20); Calcium 8.9 mg/dL (8.6-10.3); EGFR African American 86.9 (>60); EGFR Non-African American 67.5 (>60); Magnesium 2.1 mg/dL (1.9-2.7); Potassium 4.4 mmol/L (3.5-5.0)
[2017-05-22] MEDS: ALPRAZolam TAB* 0.25 MG PO PRN ×2 (11:16→23:59)
[2017-05-22] MEDS: VILANTEROL INH SCH (12:47)
[2017-05-22] MEDS: [UNRECOGNIZED DRUG - OTHER] INH SCH (12:47)
[2017-05-22] MEDS ORDERED: Warfarin TAB(*) 2 MG PO SCH (17:00)
[2017-05-22] MEDS ORDERED: Warfarin TAB(*) 3 MG PO SCH (17:00)
[2017-05-22] MEDS: OLANzapine TAB* 10 MG PO SCH (17:06)
[2017-05-22] MEDS: Atorvastatin* 10 MG TAB PO SCH (17:06)
[2017-05-22] MEDS: Gabapentin CAP(*) 100 MG PO SCH (20:53)
[2017-05-22] MEDS: Lithium Carbonate TAB* 300 MG PO SCH (20:53)
[2017-05-22] MEDS ORDERED: NS 0.9% 250 ML* 250 ML ONE (23:44)
[2017-05-22] MEDS: Acetaminophen TAB* 325 MG PO PRN (23:58)
[2017-05-23] MEDS: Albuterol 2.5 MG/3 ML NEB.SOL* (0.083%) INH SCH ×4 (01:33→19:54)
[2017-05-23] MEDS: methylPREDNISolone SOD 40 MG* 1 ML VIAL IV SCH ×2 (04:20→11:36)
[2017-05-23 06:01] LABS: Hematocrit 30 % (35-47); Hemoglobin 9.9 g/dl (12.0-16.0); Mean Corpuscular HGB Conc 33 g/dl (31-36); Mean Corpuscular Hemoglobin 28 pg (27-31); Mean Corpuscular Volume 85 fL (80-97); Mean Platelet Volume 8 um3 (7.4-10.4); Red Blood Count 3.54 10^6/ul (4.0-5.4); Red Cell Distribution Width 17 % (10.5-15); White Blood Count 5.2 10^3/ul (3.5-10.8)
[2017-05-23 06:05] LABS: Add Diff/Slide Review? Slide Review Added; Comments Flag Yes
[2017-05-23 06:17] LABS: BUN/Creatinine Ratio 34.2 (8-20); Calcium 8.8 mg/dL (8.6-10.3); EGFR African American 95.8 (>60); EGFR Non-African American 74.5 (>60); Potassium 4.4 mmol/L (3.5-5.0)
[2017-05-23] MEDS: Omeprazole CAP* 20 MG PO SCH (06:19)
[2017-05-23] MEDS: Tiotropium CAP.INH* CAP.INH/18 MCG (USE ORDER SET !) INH SCH (07:45)
[2017-05-23] MEDS: [UNRECOGNIZED DRUG - OTHER] INH SCH (08:51)
[2017-05-23] MEDS: VILANTEROL INH SCH (08:51)
[2017-05-23] MEDS: Isosorbide Mononitrate ER TAB* 30 MG PO SCH (08:52)
[2017-05-23] MEDS: guaiFENesin ER TAB 600 MG PO SCH ×2 (08:52→20:43)
[2017-05-23] MEDS: Nicotine Inhaler* 10 MG AMP INH PRN ×3 (08:52→20:42)
[2017-05-23] MEDS: Montelukast Sodium TAB* 10 MG PO SCH (08:53)
[2017-05-23] MEDS: Gabapentin CAP(*) 100 MG PO SCH ×2 (08:53→20:42)
[2017-05-23] MEDS: Docusate CAP* 100 MG PO SCH ×2 (08:53→20:41)
[2017-05-23] MEDS: Lithium Carbonate TAB* 300 MG PO SCH ×2 (08:53→20:43)
[2017-05-23] MEDS: Aspirin EC Low Dose* 81 MG TAB.EC PO SCH (08:53)
[2017-05-23] MEDS: ALPRAZolam TAB* 0.25 MG PO PRN ×2 (08:54→20:41)
--- NOTE | 2017-05-23 16:57 | PN ---
Subjective Date of Service: 05/23/17 Interval History: pt feels a little better, still SOB Objective Active Medications: Acetaminophen (Tylenol Tab*) 650 mg PO Q6H PRN PRN Reason: FEVER/PAIN Last Admin: 05/22/17 23:58 Dose: 650 mg Al Hydrox/Mg Hydrox/Simethicone (Maalox Plus*) 30 ml PO DAILY PRN PRN Reason: INDIGESTION Albuterol (Ventolin 2.5 Mg/3 Ml Neb.Tania*) 2.5 mg INH Q2H PRN PRN Reason: SOB/WHEEZING Albuterol (Ventolin 2.5 Mg/3 Ml Neb.Tania*) 2.5 mg INH [id number] AWAKE [facility] Last Admin: 05/23/17 13:52 Dose: 2.5 mg Alprazolam (Xanax Tab*) 0.25 mg PO Q6H PRN PRN Reason: ANXIETY Last Admin: 05/23/17 08:54 Dose: 0.25 mg Aspirin (Aspirin Ec Low Dose*) 81 mg PO DAILY [facility] Last Admin: 05/23/17 08:53 Dose: 81 mg Atorvastatin Calcium (Lipitor*) 10 mg PO 1700 [facility] Last Admin: 05/22/17 17:06 Dose: 10 mg Docusate Sodium (Colace Cap*) 200 mg PO BID [facility] Last Admin: 05/23/17 08:53 Dose: 200 mg Gabapentin (Neurontin Cap(*)) 100 mg PO BID [facility] Last Admin: 05/23/17 08:53 Dose: 100 mg Guaifenesin (Mucinex*) 1,200 mg PO BID [facility] Last Admin: 05/23/17 08:52 Dose: 1,200 mg Azithromycin 500 mg/ Sodium (Chloride) 250 mls @ 250 mls/hr IVPB Q24H [facility] Last Admin: 05/22/17 23:50 Dose: 250 mls/hr Isosorbide Mononitrate (Imdur Er Tab*) 30 mg PO DAILY [facility] Last Admin: 05/23/17 08:52 Dose: 30 mg [place] Carbonate ([place] Carbonate Tab*) 300 mg PO BID [facility] Last Admin: 05/23/17 08:53 Dose: 300 mg Melatonin (Melatonin (Nf)) 3 mg PO BEDTIME PRN; Protocol PRN Reason: Sleep Methylprednisolone Sodium Succinate (Solu-Medrol 40 Mg) 40 mg IV Q8H [facility] Last Admin: 05/23/17 11:36 Dose: 40 mg Montelukast Sodium (Singulair Tab*) 10 mg PO DAILY [facility] Last Admin: 05/23/17 08:53 Dose: 10 mg Nicotine (Nicotine Inhaler*) 10 mg INH Q2H PRN PRN Reason: CRAVING Last Admin: 05/23/17 16:23 Dose: 10 mg Nicotine (Nicotine Inhaler*) 10 mg INH Q2H PRN PRN Reason: CRAVING Last Admin: 05/23/17 04:20 Dose: 10 mg Pto: Breo Ellipta ( Fluticasone/Vilanterol) Mdi(Nf) 200/25 Mdi 1 dose INH DAILY [facility] Last Admin: 05/23/17 08:51 Dose: 1 dose Olanzapine (Zyprexa Tab*) 30 mg PO QPM [facility] Last Admin: 05/22/17 17:06 Dose: 30 mg Omeprazole (Prilosec Cap*) 20 mg PO DAILY@0600 [facility] Last Admin: 05/23/17 06:19 Dose: 20 mg Ondansetron HCl (Zofran Inj*) 4 mg IV Q6H PRN PRN Reason: NAUSEA Oxycodone/Acetaminophen (Percocet 5/325 Tab*) 1 tab PO Q6H PRN PRN Reason: PAIN Tiotropium [place] (Spiriva Cap.Inh*) 1 cap INH DAILY [facility] Last Admin: 05/23/17 07:45 Dose: 1 cap Vital Signs 05/22/17 05/22/17 05/22/17 18:59 19:47 20:00 Temperature 97.4 F Pulse Rate 101 87 Respiratory 20 18 21 Rate Blood Pressure 158/51 (mmHg) O2 Sat by Pulse 99 98 Oximetry 05/22/17 05/22/17 05/22/17 20:53 22:53 23:33 Temperature 97.7 F Pulse Rate 63 Respiratory 20 20 16 Rate Blood Pressure 145/46 (mmHg) O2 Sat by Pulse 100 Oximetry 05/22/17 05/23/17 05/23/17 23:59 01:59 03:19 Temperature 98.0 F Pulse Rate 69 Respiratory 20 17 16 Rate Blood Pressure 132/49 (mmHg) O2 Sat by Pulse 100 Oximetry 05/23/17 05/23/17 05/23/17 07:13 07:39 07:50 Temperature 98.2 F Pulse Rate 70 60 Respiratory 20 16 22 Rate Blood Pressure 155/54 (mmHg) O2 Sat by Pulse 100 99 Oximetry 05/23/17 05/23/17 05/23/17 08:48 08:53 08:54 Temperature Pulse Rate 58 Respiratory 22 20 Rate Blood Pressure (mmHg) O2 Sat by Pulse 98 Oximetry 05/23/17 05/23/17 05/23/17 10:53 10:54 13:48 Temperature 97.6 F Pulse Rate 85 90 Respiratory 22 22 Rate Blood Pressure 141/53 (mmHg) O2 Sat by Pulse 99 100 Oximetry 05/23/17 15:27 Temperature 98.1 F Pulse Rate 101 Respiratory 20 Rate Blood Pressure 130/65 (mmHg) O2 Sat by Pulse 99 Oximetry Oxygen Devices in Use Now: Nasal Cannula - on 2 l Appearance: 61 yo f in nAD, aAOx3 Eyes: No Scleral Icterus, PERRLA Ears/Nose/Mouth/Throat: NL Teeth, Lips, Gums, Mucous Membranes Moist Neck: NL Appearance and Movements; NL JVP, Trachea Midline Respiratory: Symmetrical Chest Expansion and Respiratory Effort, - - diffuce b/ l wheezes, improved Cardiovascular: NL Sounds; No Murmurs; No JVD, RRR Abdominal: NL Sounds; No Tenderness; No Distention Lymphatic: No Cervical Adenopathy Extremities: No Clubbing, Cyanosis, - - +1 pedeal edema b/l Skin: No Rash or Ulcers, No Nodules or Sclerosis Neurological: Alert and Oriented x 3, NL Muscle Strength and Tone Result Diagrams: 05/23/17 05:54 05/23/17 05:54 Additional Lab and Data: Lab Results 05/21/17 05/21/17 05/21/17 Range/Units 20:22 20:22 20:22 WBC (3.5-10.8) 10^3/ul RBC (4.0-5.4) 10^6/ul Hgb (12.0-16.0) g/dl Hct (35-47) % MCV (80-97) fL MCH (27-31) pg MCHC (31-36) g/dl RDW (10.5-15) % Plt Count (150-450) 10^3/ul MPV (7.4-10.4) um3 Neut % (Auto) (38-83) % Lymph % (Auto) (25-47) % Ida % (Auto) (1-9) % Eos % (Auto) (0-6) % Baso % (Auto) (0-2) % Absolute Neuts (auto) (1.5-7.7) 10^3/ul Absolute Lymphs (auto) (1.0-4.8) 10^3/ul Absolute Monos (auto) (0-0.8) 10^3/ul Absolute Eos (auto) (0-0.6) 10^3/ul Absolute Basos (auto) (0-0.2) 10^3/ul Absolute Nucleated RBC 10^3/ul Nucleated RBC % INR (Anticoag Therapy) 2.14 H (0.89-1.11) APTT 27.9 (26.0-36.3) seconds D-Dimer, Quantitative < 200 (Less Than 230) ng/mL Sodium 139 (133-145) mmol/L Potassium 4.0 (3.5-5.0) mmol/L Chloride 103 (101-111) mmol/L Carbon Dioxide 31 (22-32) mmol/L Anion Gap 5 (2-11) mmol/L BUN 23 (6-24) mg/dL Creatinine 1.00 H (0.51-0.95) mg/dL Est GFR ( Amer) 73.0 (>60) Est GFR (Non-Af Amer) 56.7 (>60) BUN/Creatinine Ratio 23.0 H (8-20) Glucose 92 (70-100) mg/dL Lactic Acid (0.5-2.0) mmol/L Calcium 9.4 (8.6-10.3) mg/dL Magnesium 3.4 H (1.9-2.7) mg/dL Total Bilirubin 0.40 (0.2-1.0) mg/dL AST 11 L (13-39) U/L ALT 17 (7-52) U/L Alkaline Phosphatase 57 (34-104) U/L Total Creatine Kinase 23 (10-223) U/L CK-MB (CK-2) 3.4 (0.6-6.3) ng/mL Troponin I 0.02 (<0.04) ng/mL C-Reactive Protein < 1.00 (< 5.00) mg/L B-Natriuretic Peptide 99 ( - 100) pg/mL Total Protein 5.7 L (6.4-8.9) g/dL Albumin 3.8 (3.2-5.2) g/dL Globulin 1.9 L (2-4) g/dL Albumin/Globulin Ratio 2.0 (1-3) Lipase 37 (11.0-82.0) U/L TSH 0.73 (0.34-5.60) mcIU/mL 05/21/17 05/21/17 Range/Units 20:22 20:22 WBC 10.8 (3.5-10.8) 10^3/ul RBC 4.40 (4.0-5.4) 10^6/ul Hgb 12.2 (12.0-16.0) g/dl Hct 37 (35-47) % MCV 85 (80-97) fL MCH 28 (27-31) pg MCHC 33 (31-36) g/dl RDW 17 H (10.5-15) % Plt Count 165 (150-450) 10^3/ul MPV 8 (7.4-10.4) um3 Neut % (Auto) 79.7 (38-83) % Lymph % (Auto) 13.8 L (25-47) % Ida % (Auto) 4.9 (1-9) % Eos % (Auto) 1.4 (0-6) % Baso % (Auto) 0.2 (0-2) % Absolute Neuts (auto) 8.6 H (1.5-7.7) 10^3/ul Absolute Lymphs (auto) 1.5 (1.0-4.8) 10^3/ul Absolute Monos (auto) 0.5 (0-0.8) 10^3/ul Absolute Eos (auto) 0.1 (0-0.6) 10^3/ul Absolute Basos (auto) 0 (0-0.2) 10^3/ul Absolute Nucleated RBC 0 10^3/ul Nucleated RBC % 0 INR (Anticoag Therapy) (0.89-1.11) APTT (26.0-36.3) seconds D-Dimer, Quantitative (Less Than 230) ng/mL Sodium (133-145) mmol/L Potassium (3.5-5.0) mmol/L Chloride (101-111) mmol/L Carbon Dioxide (22-32) mmol/L Anion Gap (2-11) mmol/L BUN (6-24) mg/dL Creatinine (0.51-0.95) mg/dL Est GFR ( Amer) (>60) Est GFR (Non-Af Amer) (>60) BUN/Creatinine Ratio (8-20) Glucose (70-100) mg/dL Lactic Acid 1.0 (0.5-2.0) mmol/L Calcium (8.6-10.3) mg/dL Magnesium (1.9-2.7) mg/dL Total Bilirubin (0.2-1.0) mg/dL AST (13-39) U/L ALT (7-52) U/L Alkaline Phosphatase (34-104) U/L Total Creatine Kinase (10-223) U/L CK-MB (CK-2) (0.6-6.3) ng/mL Troponin I (<0.04) ng/mL C-Reactive Protein (< 5.00) mg/L B-Natriuretic Peptide ( - 100) pg/mL Total Protein (6.4-8.9) g/dL Albumin (3.2-5.2) g/dL Globulin (2-4) g/dL Albumin/Globulin Ratio (1-3) Lipase (11.0-82.0) U/L TSH (0.34-5.60) mcIU/mL Assess/Plan/Problems-Billing Assessment: Mrs. Camejo is a 61yo F with PMH of COPD on home O2, tobacco abuse , HTN, HLD, DVT, IBS, PVD, bipolar disorder, schizophrenia, who presented to ED with c/o chest pain and dyspnea, found to have COPD exacerbation. - Patient Problems (1) COPD exacerbation Comment: Continue azithromycin, duonebs. Improving Chest pain reported in past, either with copd exacerbation or as her baseline. (2) Chest pain Comment: - ACS ruled out, no significant arrhythmias on Telemetry. (3) Tobacco abuse Comment: Patient advised if she continues to smoke, she'll . This episode is secondary to her smoking soon after discharge. Continue nicotine supplementation. (4) Hypertension Comment: - Controlled, metoprolol, held due to significant bronchospasm (5) Hx of deep venous thrombosis Comment: Warfarin held due to INR>3 (6) Schizoaffective disorder, bipolar type Comment: Stable. Continue Zyprexa, lithium and mirtazapine. (7) DVT prophylaxis Current Visit: No Comment: - Warfarin , INR>3 Status and Disposition: inpatient , possible d/c tomorrow
[2017-05-23] MEDS ORDERED: methylPREDNISolone SOD 40 MG* 1 ML VIAL IV SCH (17:00)
[2017-05-23] MEDS ORDERED: Magnesium Hydroxide LIQ* 30 ML UDC PO ONE (17:01)
[2017-05-23] MEDS: OLANzapine TAB* 10 MG PO SCH (17:42)
[2017-05-23] MEDS: Atorvastatin* 10 MG TAB PO SCH (17:42)
[2017-05-23] MEDS ORDERED: NS 0.9% 250 ML* 250 ML ONE (23:50)
[2017-05-24] MEDS: Azithromycin IV(*) 500 MG in NS 0.9% 250 ML* 250 ML IVPB SCH (00:02)
[2017-05-24] MEDS: Nicotine Inhaler* 10 MG AMP INH PRN ×3 (00:03→10:32)
[2017-05-24] MEDS: methylPREDNISolone SOD 40 MG* 1 ML VIAL IV SCH ×2 (00:03→13:13)
[2017-05-24] MEDS: Albuterol 2.5 MG/3 ML NEB.SOL* (0.083%) INH SCH ×3 (01:34→14:11)
[2017-05-24 05:39] LABS: Hematocrit 31 % (35-47); Mean Corpuscular HGB Conc 32 g/dl (31-36); Mean Corpuscular Hemoglobin 28 pg (27-31); Mean Corpuscular Volume 85 fL (80-97); Mean Platelet Volume 8 um3 (7.4-10.4); Red Blood Count 3.62 10^6/ul (4.0-5.4); Red Cell Distribution Width 17 % (10.5-15); White Blood Count 5.3 10^3/ul (3.5-10.8)
[2017-05-24] MEDS: Omeprazole CAP* 20 MG PO SCH (05:50)
[2017-05-24 05:51] LABS: BUN/Creatinine Ratio 31.5 (8-20); Calcium 9.2 mg/dL (8.6-10.3); EGFR African American 80.4 (>60); EGFR Non-African American 62.5 (>60); Potassium 4.6 mmol/L (3.5-5.0)
[2017-05-24] MEDS: VILANTEROL INH SCH (09:03)
[2017-05-24] MEDS: Tiotropium CAP.INH* CAP.INH/18 MCG (USE ORDER SET !) INH SCH (09:03)
[2017-05-24] MEDS: [UNRECOGNIZED DRUG - OTHER] INH SCH (09:03)
[2017-05-24] MEDS: Gabapentin CAP(*) 100 MG PO SCH (09:21)
[2017-05-24] MEDS: Docusate CAP* 100 MG PO SCH (09:21)
[2017-05-24] MEDS: Lithium Carbonate TAB* 300 MG PO SCH (09:22)
[2017-05-24] MEDS: Montelukast Sodium TAB* 10 MG PO SCH (09:22)
[2017-05-24] MEDS: Isosorbide Mononitrate ER TAB* 30 MG PO SCH (09:22)
[2017-05-24] MEDS: Aspirin EC Low Dose* 81 MG TAB.EC PO SCH (09:22)
[2017-05-24] MEDS: guaiFENesin ER TAB 600 MG PO SCH (09:23)
[2017-05-24] MEDS: ALPRAZolam TAB* 0.25 MG PO PRN (09:23)
[2017-05-24] MEDS: Acetaminophen TAB* 325 MG PO PRN (09:23)
[2017-05-24 12:10] VITALS: BP 147/66
--- NOTE | 2017-05-25 02:46 | DS ---
CC: Dr. Schrader * DISCHARGE SUMMARY: DATE OF ADMISSION: DATE OF DISCHARGE: PRIMARY CARE PROVIDER: Dr. Schrader. DISCHARGE DIAGNOSIS: Chronic obstructive pulmonary disease exacerbation. SECONDARY DIAGNOSES: 1. Severe chronic obstructive pulmonary disease, oxygen dependent on 2 L in a patient who still is an active smoker. 2. History of peripheral arterial disease. 3. History of moderate aortic regurgitation. 4. History of diastolic dysfunction. 5. Hypertension. 6. Dyslipidemia. 7. History of deep venous thrombosis, on Coumadin. 8. History of irritable bowel syndrome. 9. Bipolar disorder. 10. Schizophrenia. 11. History of anxiety/depression. MEDICATIONS AT DISCHARGE: Include: 1. Xanax 0.25 mg every 6 hours p.r.n. 2. Incruse Ellipta 62.5 mcg inhalation daily. 3. Maalox 30 mg on a p.r.n. basis. 4. Albuterol nebulizer on a p.r.n. basis. 5. Albuterol inhaler on a p.r.n. basis. 6. Lipitor 10 mg daily. 7. Azithromycin 250 mg p.o. daily for 2 days, then stop. 8. Nexium 40 mg daily. 9. Breo Ellipta 1 puff daily. 10. Neurontin 100 mg b.i.d. 11. Fluticasone 1 puff daily. 12. Imdur ER 30 mg daily. 13. [place] carbonate 300 mg b.i.d. 14. Lopressor 25 mg b.i.d. 15. Remeron 7.5 mg at bedtime. 16. Singulair 10 mg daily. 17. Nicotine inhaler 1 puff every 2 hours p.r.n. 18. Zyprexa 30 mg q.p.m. 19. Coumadin 2 mg daily. 20. Percocet on a p.r.n. basis. 21. Prednisone taper at 40 mg daily for 3 days, then 30 mg daily for 3 days, and 20 mg daily for 3 days, then 10 mg daily for 3 days, and 5 mg daily for 3 days, then stop. HOSPITALIZATION COURSE: Daina Camejo is a 61-year-old female, who is a frequent visitor to our emergency department for shortness of breath and COPD exacerbation, who presented complaining of shortness of breath and chest pain. Her troponins continued to be negative throughout her hospital stay and due to her severe bronchospasm, she was not a good candidate for stress test during her hospital stay. In fact, the patient stated that her chest pain is basically a feeling of "hard to breathe." That slowly resolved by the time of discharge after treatment with Solu-Medrol nebulizer treatment and azithromycin for COPD exacerbation. By the time of discharge, her wheezing diminished to very mild. She continues to oxygenate well on 2 L of oxygen nasal cannula and she is going to be discharged on prednisone taper and azithromycin to finish a 5 -day course. LABORATORY DATA AND STUDIES PERFORMED DURING THE HOSPITAL STAY: Included: On 05/24/17, sodium of 137, potassium of 4.6, chloride 103, carbon dioxide 33, BUN 29, creatinine 0.92. White blood cell count of 5.3, hemoglobin of 10.0, hematocrit of 31, and platelets of 111. INR on 05/24/17 was 2.54. Urinalysis is unremarkable. Portable chest x-ray, impression: "No active disease." PHYSICAL EXAMINATION: At the time of discharge, blood pressure of 134/55, heart rate of and regular, respiratory rate 20, oxygen saturation 100% on 2 L of oxygen nasal cannula, temperature 98.3. General: This is a very pleasant 61-year-old female, who is in no acute distress. Alert, awake, and oriented x3. HEENT: Head: Atraumatic, normocephalic. Eyes: Pupils are equal , reactive to light and accommodation. Oropharynx is clear. Mucosa moist. Neck: Supple. No JVD. No bruits bilaterally. Cardiovascular: Regular rate and rhythm. No murmur. Respiratory: Distant breath sounds bilaterally with scant wheezes at bilateral base, otherwise is clear. Abdomen: Soft, nontender. Bowel sounds are present in all 4 quadrants. Extremities: There is +1 pedal edema. Left leg is slightly larger than right. There is no clubbing or cyanosis noted. On neuro evaluation, speech clear. Cranial nerves II through XII grossly intact. Motor strength is 5/5 bilaterally. Please note that this is a short summary of the patient's hospitalization. Please refer to further medical records for details. TIME SPENT: Approximately 40 minutes was spent on the patient's discharge. [id number]/[facility] #: [id number] [facility]
== END 2017-05-24 14:29 | disposition home health service (06) | DRG 192 ==
LOC: ED 19:45 → MEDTELE 20:50 → OBSVTOIN 05-22 10:00
PROVIDERS: ADMIT Hospitalist; ATTEND Internal Medicine
DX: J44.1 Chronic obstructive pulmonary disease with (acute) exacerbation (principal); Z99.81 Dependence on supplemental oxygen; I73.9 Peripheral vascular disease, unspecified; I35.1 Nonrheumatic aortic (valve) insufficiency; I10 Essential (primary) hypertension; E78.5 Hyperlipidemia, unspecified; K58.9 Irritable bowel syndrome, unspecified; F31.9 Bipolar disorder, unspecified; F41.9 Anxiety disorder, unspecified; F17.210 Nicotine dependence, cigarettes, uncomplicated; E66.9 Obesity, unspecified; K21.9 Gastro-esophageal reflux disease without esophagitis; I25.10 Atherosclerotic heart disease of native coronary artery without angina pectoris; R40.2412 Glasgow coma scale score 13-15, at arrival to emergency department; D64.9 Anemia, unspecified; F25.0 Schizoaffective disorder, bipolar type; Z86.718 Personal history of other venous thrombosis and embolism; Z79.01 Long term (current) use of anticoagulants; Z88.8 Allergy status to other drugs, medicaments and biological substances; Z88.1 Allergy status to other antibiotic agents; Z88.0 Allergy status to penicillin; Z95.820 Peripheral vascular angioplasty status with implants and grafts; Z82.49 Family history of ischemic heart disease and other diseases of the circulatory system; Z82.5 Family history of asthma and other chronic lower respiratory diseases; Z83.49 Family history of other endocrine, nutritional and metabolic diseases; Z68.31 Body mass index [BMI] 31.0-31.9, adult; Z90.49 Acquired absence of other specified parts of digestive tract; Z91.5 Personal history of self-harm; Z81.8 Family history of other mental and behavioral disorders
CPT/HCPCS: 36415; 71010; 80048; 80053; 80178; 81003; 82550; 82553; 83605; 83690; 83735; 83880; 84443; 84484; 85025; 85379; 85610; 85730; 86140; 87040; 93005; 94640; 94760; 99406; A9270-GY; G0378; J0456; J2920; J2930

== ENCOUNTER 2017-05-25 17:49 | Inpatient (IN) | payer MEDICARE, MEDICAID ==
[2017-05-25] MEDS ORDERED: Nitroglycerin 2% OINT* 1 GM PAK TOPICAL ONE (18:24)
[2017-05-25] MEDS ORDERED: Metoprolol Tartrate IV* 1 MG/ML 5 ML VIAL IV ONE (18:24)
[2017-05-25 18:34] LABS: Hematocrit 38 % (35-47); Mean Corpuscular HGB Conc 32 g/dl (31-36); Mean Corpuscular Hemoglobin 27 pg (27-31); Mean Corpuscular Volume 85 fL (80-97); Mean Platelet Volume 7 um3 (7.4-10.4); Red Blood Count 4.48 10^6/ul (4.0-5.4); Red Cell Distribution Width 18 % (10.5-15); White Blood Count 12.4 10^3/ul (3.5-10.8)
--- NOTE | 2017-05-25 18:46 | RAD ---
INDICATION: Chest pain COMPARISON: May 21, 2017 TECHNIQUE: An AP portable view obtained at 1829 hours is submitted. FINDINGS: Bones/Soft Tissues: There are no acute bony findings. Cardiomediastinal: The cardiomediastinal silhouette is normal. Lungs: There are no infiltrates. Pleura: There are no pleural effusions. Other: None IMPRESSION: NO ACTIVE DISEASE.
[2017-05-25 18:51] LABS: Troponin I 0.02 ng/mL (<0.04)
[2017-05-25 18:53] LABS: Albumin 3.4 g/dL (3.2-5.2); BUN/Creatinine Ratio 24.4 (8-20); Calcium 9.4 mg/dL (8.6-10.3); EGFR African American 82.4 (>60); EGFR Non-African American 64.1 (>60); Potassium 3.7 mmol/L (3.5-5.0); Total Bilirubin 0.3 mg/dL (0.2-1.0); Total Protein 5.4 g/dL (6.4-8.9)
[2017-05-25] MEDS ORDERED: methylPREDNISolone 125 MG* 2 ML VIAL IV ONE (18:59)
[2017-05-25] MEDS ORDERED: Albuterol/Ipratropium NEB.SOL* Albuterol 2.5 MG/Ipratropium 0.5 MG 3 ML INH ONE (18:59)
[2017-05-25 19:46] LABS: PCO2 Arterial 51 mmHg (35-45)
--- NOTE | 2017-05-25 20:01 | RAD ---
INDICATION: Pain and swelling. COMPARISON: February 23, 2016 TECHNIQUE: Duplex interrogation of the Lowerextremity was performed. FINDINGS: Deep veins: The common femoral, great saphenous, profunda femoris, proximal, mid, and distal deep femoral, popliteal, posterior tibial, and peroneal veins are patent. The left common femoral vein is recanalized. The remaining vessels there is is normal compressibility, augmentation, and phasic flow. Superficial veins: There are no findings of superficial thrombophlebitis. There is reflux in a great saphenous. Popliteal fossa:There is no evidence of a popliteal cyst. Soft tissues:There are no soft tissue abnormalities. IMPRESSION: NO EVIDENCE OF DEEP VENOUS THROMBOSIS
[2017-05-25] MEDS ORDERED: Al Hydrox/Mg Hydrox/Simet LIQ* 30 ML UDC PO PRN (20:19)
[2017-05-25] MEDS ORDERED: Iohexol 350* (CONTRAST) 500 ML MDV IV ONE (20:51)
--- NOTE | 2017-05-25 20:55 | ED ---
Sincere Laboy Benjamin, scribed for Yovanny Yen MD on 05/25/17 at 1830 . HPI Chest Pain - HPI Summary HPI Summary: 61yo BIBA female c/o sudden onset of crushing CP 1 hour ago. Pt is still present and pt rates the pain as 8/10. Pain radiates the her left arm. Also reports diaphoresis, lightheadedness, and dizziness, but denies SOB. CP does not get worsen with deep breath. Pt is a smoker, positive PMHx for COPD, HTN, hernia repair, and cholecystectomy. No hx of [place], but positive FHX of [place]. Pt was given ASA and NTG by EMS en route. - History of Current Complaint Chief Complaint: EDChestPainROMI Time Seen by Provider: 05/25/17 18:15 Hx Obtained From: Patient Onset/Duration: Started Hours Ago - 1 hour ago, Still Present Timing: Constant Initial Severity: Moderate Current Severity: Moderate Pain Intensity: 8 Pain Scale Used: 0-10 Numeric Chest Pain Location: Diffuse Chest Pain Radiates: Yes Chest Pain Radiates To:: Arm - left Character: Crushing Aggravating Factor(s): Nothing Alleviating Factor(s): Nothing Associated Signs and Symptoms: Positive: Dizziness, Lightheadedness, Diaphoresis - Additional Pertinent History Primary Care Physician: [id number] - Allergy/Home Medications Allergies/Adverse Reactions: Allergies Allergy/AdvReac Type Severity Reaction Status Date / Time Bupropion [From Wellbutrin] Allergy Severe Agitation Verified 05/25/17 19:44 Cephalosporins Allergy Severe Agitation Verified 05/25/17 19:44 Penicillins [PCN] Allergy Intermediate Hives Verified 05/25/17 19:44 Chlorpromazine AdvReac Severe Diarrhea Verified 05/25/17 19:44 Erythromycin AdvReac Intermediate Diarrhea Verified 05/25/17 19:44 Tobramycin AdvReac Intermediate Diarrhea Verified 05/25/17 19:44 Home Medications: Home Medications ALPRAZolam TAB* [Xanax TAB*] 0.25 mg PO Q6H PRN 05/25/17 [History Confirmed ] Gabapentin CAP(*) [Neurontin 100 mg CAP(*)] 100 mg PO BID 05/25/17 [History Confirmed 05/25/17] [place] Carbonate TAB* 300 mg PO BID 05/25/17 [History Confirmed 05/25/17] Metoprolol Tartrate TAB* [Lopressor TAB*] 25 mg PO BID 05/25/17 [History Confirmed 05/25/17] OLANzapine TAB* [Zyprexa 10 MG TAB*] 10 mg PO QPM 05/25/17 [History Confirmed ] Umeclidinium [place] [Incruse Ellipta] 62.5 mcg INH DAILY 05/25/17 [History Confirmed 05/25/17] PMH/Surg Hx/FS Hx/Imm Hx Endocrine/Hematology History: Reports: Hx Anticoagulant Therapy, Other Endocrine /Hematological Disorders - L leg DVT Denies: Hx Diabetes, Hx Systemic Lupus Erythematosus, Hx Thyroid Disease Cardiovascular History: Reports: Hx Angina, Hx Coronary Artery Disease, Hx Deep Vein Thrombosis, Hx Hypercholesterolemia, Hx Hypertension, Hx Peripheral Vascular Disease, Other Cardiovascular Problems/Disorders - PERIPHERAL ARTERY DISEASE; CAD; DVT Denies: Hx Congestive Heart Failure, Hx Pacemaker/ICD Respiratory History: Reports: Hx Asthma, Hx Chronic Bronchitis, Hx Chronic Obstructive Pulmonary Disease (COPD), Hx Pneumonia, Hx Seasonal Allergies, Other Respiratory Problems/Disorders - PNA Denies: Hx Cystic Fibrosis, Hx Lung Cancer, Hx Pleural Effusion, Hx Pulmonary Edema, Hx Pulmonary Embolism, Hx Sleep Apnea GI History: Reports: Hx Gall Bladder Disease - removed, Hx Gastroesophageal Reflux Disease, Hx Irritable Bowel, Other GI Disorders - hernia repair X 2 Denies: Hx Cirrhosis, Hx Crohn's Disease, Hx Diverticulosis History: Denies: Hx Dialysis, Hx Renal Disease Musculoskeletal History: Denies: Hx Arthritis, Hx Rheumatoid Arthritis, Hx Osteoporosis Sensory History: Reports: Hx Contacts or Glasses Denies: Hx Glaucoma, Hx Deafness, Hx Hearing Aid, Hx Hearing Problem Opthamlomology History: Reports: Hx Contacts or Glasses Denies: Hx Glaucoma Neurological History: Denies: Hx Headaches, Hx Seizures, Hx Transient Ischemic Attacks (TIA) Psychiatric History: Reports: Hx Anxiety, Hx Depression, Hx Inpatient Treatment , Hx Community Mental Health Tx, Hx Schizophrenia, Hx Bipolar Disorder, Hx Suicide Attempt Denies: Hx Eating Disorder, Hx Panic Disorder, Hx of Violent Episodes Against Others - Cancer History Hx Chemotherapy: No - Surgical History Surgery Procedure, Year, and Place: bilat thumb repairs, hernia repairs X 2, cholecystectomy, appendectomy Hx Anesthesia Reactions: No - Immunization History Date of Tetanus Vaccine: UTD Date of Influenza Vaccine: UTD Infectious Disease History: Denies: Hx Clostridium Difficile, Hx Hepatitis, Hx Human Immunodeficiency Virus (HIV), Hx of Known/Suspected MRSA, Hx Shingles, Hx Tuberculosis, Traveled Outside the in Last 30 Days - Family History Known Family History: Positive: None, Cardiac Disease - [place], Other - schizophrenia, anxiety Negative: Hypertension, Diabetes Family History: Negative HTN/Cardiac/DM per EMR - Social History Alcohol Use: None Hx Substance Use: No Substance Use Type: Reports: None Hx Tobacco Use: Yes Smoking Status (MU): Heavy Every Day Tobacco Smoker Type: Cigarettes Amount Used/How Often: half a pack a day Have You Smoked in the Last Year: Yes Review of Systems Positive: Skin Diaphoresis. Negative: Fever Eyes: Negative ENT: Negative Positive: Chest Pain Respiratory: Negative Gastrointestinal: Negative Genitourinary: Negative Musculoskeletal: Negative Skin: Negative Neurological: Negative Psychological: Normal All Other Systems Reviewed And Are Negative: Yes Diagnostics - Laboratory Result Diagrams: 05/25/17 18:25 05/25/17 18:25 Lab Statement: Any lab studies that have been ordered have been reviewed, and results considered in the medical decision making process. - Radiology CXR Xray Interpretation: No Acute Changes Radiology Interpretation Completed By: Radiologist - ED physician has reviewed this radiology report and agrees. - EKG 1809. Cardiac Rate: Tachycardia - 117BPM EKG Rhythm: Sinus Tachycardia EKG Interpretation: no STEMI Chest Pain Course/Dx - Course Course Of Treatment: Reviewed pts medication and allergy lists. Blood pressure noted. Discussed with Dr. Felipe (Hospitalist) at 1915 hour. - Diagnoses Provider Diagnoses: Chest pain Discharge - Discharge Plan Condition: Good Disposition: ADMITTED TO [facility] documentation as recorded by the Sincere kiran Benjamin accurately reflects the service I personally performed and the decisions made by me, Yovanny Yen MD.
[2017-05-25] MEDS ORDERED: Ipratropium 0.5MG/2.5ML NEB* 0.5 MG/2.5 ML NEB.SOLN INH SCH (21:00)
--- NOTE | 2017-05-25 21:15 | RAD ---
INDICATION: Chest pain. Short of breath. Evaluate for pulmonary embolus. COMPARISON: CTA chest December 30, 2015 TECHNIQUE: Axial source images were obtained from the thoracic inlet to the hemidiaphragms following administration of 66 mL Omnipaque [address] angiographic technique was utilized. Coronal and sagittal reconstructed images were acquired. CHEST FINDINGS: Neck/thyroid: The visualized neck to include the thyroid appear normal. Chest wall: There are no acute abnormalities of the bony thorax or chest wall. There is no supraclavicular, infraclavicular, or axillary lymphadenopathy. Lungs : There are no worrisome pulmonary parenchymal masses or infiltrates. The pulmonary interstitium appears normal. There are no endobronchial lesions. Cardiomediastinal structures: There is no CT evidence of acute pulmonary embolic disease. The heart is normal in size. There is no pericardial effusion. There is no evidence of aortic aneurysm or dissection. There is no mediastinal or hilar adenopathy. The esophagus appears normal. Pleura : There are no pleural-based masses or effusions. Other: None. IMPRESSION: NO CT EVIDENCE OF ACUTE PULMONARY EMBOLIC DISEASE. LUNGS CLEAR.
[2017-05-25] MEDS: Gabapentin CAP(*) 100 MG PO SCH (21:47)
[2017-05-25] MEDS: Mirtazapine TAB* 15 MG PO SCH (21:48)
[2017-05-25] MEDS: Metoprolol Tartrate TAB* 25 MG PO SCH (21:49)
[2017-05-25] MEDS: Lithium Carbonate TAB* 300 MG PO SCH (21:49)
[2017-05-25] MEDS: ALPRAZolam TAB* 0.25 MG PO PRN (21:59)
[2017-05-25] MEDS ORDERED: Mouth Piece, Nicotine* 1 EACH CARTRIDGE ONE (22:46)
[2017-05-25] MEDS: Nicotine Inhaler* 10 MG AMP INH PRN (22:48)
[2017-05-25] MEDS ORDERED: Albuterol 2.5 MG/3 ML NEB.SOL* (0.083%) INH SCH (23:00)
[2017-05-26] MEDS ORDERED: Albuterol/Ipratropium NEB.SOL* Albuterol 2.5 MG/Ipratropium 0.5 MG 3 ML INH SCH (01:00)
[2017-05-26] MEDS: Acetaminophen TAB* 325 MG PO PRN ×2 (02:08→20:16)
[2017-05-26] MEDS ORDERED: traZODone TAB* 50 MG TAB PO PRN (02:10)
--- NOTE | 2017-05-26 02:51 | HP ---
HISTORY AND PHYSICAL: DATE OF ADMISSION: 05/25/17 CHIEF COMPLAINT: Chest pain and shortness of breath. HISTORY OF PRESENT ILLNESS: This is a 61-year-old female with history of COPD and DVT, presenting with sudden onset chest pain with shortness of breath this evening at dinner. She stood up from the table and started walking to the bathroom when she had sudden onset of left-sided chest pain that she reported radiated to her left arm and was unrelieved with rest. This was associated with worsening shortness of breath, palpitations, and diaphoresis. She was discharged yesterday from the hospital admission for COPD exacerbation and says that she has been persistent with short of breath since she left at that time. She did not fill the prednisone, but has been taking all of her other home medications and using her home nebulizer since her discharge including the azithromycin that she was discharged with. She currently continues to feel short of breath, have a cough that is nonproductive, and has left-sided chest pain. PAST MEDICAL HISTORY: 1. DVT. 2. COPD, on 2 L home oxygen only at night. 3. Schizophrenia. 4. Hypertension. 5. Peripheral arterial disease. 6. Moderate aortic regurgitation. 7. Diastolic dysfunction. 8. Hypertension. 9. Dyslipidemia. 10. IBS. 11. Bipolar disease. 12. Schizophrenia. 13. Anxiety. 14. Depression. ADMISSION MEDICATIONS: 1. Xanax 0.25 mg q.6 p.r.n. 2. Incruse Ellipta 62.5 mcg inhaled daily. 3. Maalox 30 mg p.o. p.r.n. 4. Albuterol nebulizer p.r.n. 5. Albuterol inhaler p.r.n. 6. Lipitor 10 mg daily. 7. Azithromycin 250 mg p.o. daily. 8. Nexium 40 mg daily. 9. Breo Ellipta 1 puff daily. 10. Neurontin 100 mg b.i.d. 11. Fluticasone 1 puff daily. 12. Imdur ER 30 mg daily. 13. [place] carbonate 300 mg b.i.d. 14. Lopressor 25 mg b.i.d. 15. Remeron 7.5 mg at bedtime. 16. Singulair 10 mg daily. 17. Nicotine inhaler 1 puff q.2 p.r.n. 18. Zyprexa 30 mg q.h.s. 19. Coumadin 2 mg daily. 20. Percocet p.r.n. 21. Prednisone taper which she did not fill. SOCIAL HISTORY: She currently lives at [facility]. She smokes a half a pack a day. She denies alcohol. REVIEW OF SYSTEMS: Negative for fevers, chills, confusion, headache, blurry vision. Positive for chest pain, palpitations, shortness of breath, diaphoresis. She denies nausea, vomiting, constipation, or diarrhea. PHYSICAL EXAMINATION GENERAL: Alert, mildly tachypneic, coughs frequently. HEENT: Edentulous, dry mucosa. Pupils are equal, round, and reactive to light. No pharyngeal exudate or erythema. NECK: No cervical lymphadenopathy, no JVP. Thyroid is nonpalpable. CHEST: Diffuse expiratory wheezing with scattered rhonchi and prolonged expiratory phase. She is unable to speak a full sentence without stopping for breath. Chest is nontender to palpation. HEART: She is tachycardic with no murmurs ABDOMEN: Soft, nontender, and nondistended. EXTREMITIES: Clubbing noted. Left lower extremity greater in diameter than the right lower extremity. Nontender calves. No pitting edema. DIAGNOSTIC STUDIES/LAB DATA: Labs on admission: White blood cells 12.4, hemoglobin 12.0, platelets 149. Sodium 141, potassium 3.7, chloride 104, bicarb 33, BUN 22, creatinine 0.9. INR 1.55. ABG 7.48/51/108/35. Chest x-ray: No active disease. EKG: Sinus tachycardia. Normal axis, normal intervals. No ST or T-wave changes. EMERGENCY DEPARTMENT COURSE: DuoNeb, metoprolol 5 mg IV, nitroglycerin, Solu- Medrol 125 mg. ASSESSMENT AND PLAN: This is a 61-year-old female with history of chronic obstructive pulmonary disease who was discharged yesterday for a chronic obstructive pulmonary disease exacerbation, returning today with chest pain and shortness of breath. 1. Chest pain and shortness of breath. While this could certainly all be related to ongoing chronic obstructive pulmonary disease exacerbation, she does report a sudden onset change with new chest pain that occurred this evening. Given her history of DVT and her presentation with a subtherapeutic INR in the setting of sinus tachycardia and chest pain, I am ruling out a pulmonary embolus with a CT angio tonight. If this is negative, her EKG has no evidence of ischemia and troponin is negative, we will repeat the troponin and treat her for ongoing chronic obstructive pulmonary disease exacerbation with standing nebulizer, Solu-Medrol, and azithromycin. 2. Acute on chronic hypoxic and hypercapnic respiratory failure. Continue to treat chronic obstructive pulmonary disease exacerbation as above with Solu- Medrol, azithromycin, and standing nebulizers. 3. Deep venous thrombosis, subtherapeutic on Coumadin. I will increase her Coumadin dose today. 4. Schizophrenia/bipolar. Continue home psych medications. 5. Peripheral arterial disease. Continue Lipitor. She should also be on aspirin 81 mg daily which I will add. 6. Tobacco abuse. She was encouraged to consider quitting; however, recognizes the challenge of quitting and does not feel ready to quit. 7. DVT prophylaxis: Increase therapeutic warfarin dose. [id number]/CPS #: [id number]
[2017-05-26] MEDS: methylPREDNISolone SOD 40 MG* 1 ML VIAL IV SCH ×3 (03:51→18:16)
[2017-05-26 06:31] LABS: Hematocrit 35 % (35-47); Hemoglobin 11.1 g/dl (12.0-16.0); Mean Corpuscular HGB Conc 32 g/dl (31-36); Mean Corpuscular Hemoglobin 27 pg (27-31); Mean Corpuscular Volume 86 fL (80-97); Mean Platelet Volume 8 um3 (7.4-10.4); Red Blood Count 4.06 10^6/ul (4.0-5.4); Red Cell Distribution Width 17 % (10.5-15); White Blood Count 8.6 10^3/ul (3.5-10.8)
[2017-05-26 06:46] LABS: BUN/Creatinine Ratio 32.4 (8-20); Blood Urea Nitrogen 22 mg/dL (6-24); CO2 Carbon Dioxide 34 mmol/L (22-32); Calcium 9.2 mg/dL (8.6-10.3); Chloride 101 mmol/L (101-111); EGFR African American 113.9 (>60); EGFR Non-African American 88.6 (>60); Glucose 160 mg/dL (70-100); Potassium 4.7 mmol/L (3.5-5.0); Sodium 135 mmol/L (133-145)
[2017-05-26] MEDS: Albuterol/Ipratropium NEB.SOL* Albuterol 2.5 MG/Ipratropium 0.5 MG 3 ML INH SCH ×3 (08:02→21:16)
[2017-05-26] MEDS: Enoxaparin(*) 80 MG/0.8 ML SYR SUBCUT SCH ×2 (10:03→20:06)
[2017-05-26] MEDS: Azithromycin TAB* 250 MG PO SCH (10:04)
[2017-05-26] MEDS: Gabapentin CAP(*) 100 MG PO SCH ×2 (10:04→20:08)
[2017-05-26] MEDS: Isosorbide Mononitrate ER TAB* 30 MG PO SCH (10:06)
[2017-05-26] MEDS: Montelukast Sodium TAB* 10 MG PO SCH (10:07)
[2017-05-26] MEDS: Lithium Carbonate TAB* 300 MG PO SCH ×2 (10:07→20:09)
[2017-05-26] MEDS: Metoprolol Tartrate TAB* 25 MG PO SCH ×2 (10:07→20:09)
[2017-05-26] MEDS: Nicotine Inhaler* 10 MG AMP INH PRN ×3 (10:08→20:47)
--- NOTE | 2017-05-26 14:21 | PN ---
Subjective Date of Service: 05/26/17 Interval History: HOSPITALIST PROGRESS NOTE Patient seen and examined at bedside. She feels a little better today, but still c/o dyspnea. Chest pain is still present when she coughs. States she did not fill her prednisone after discharge , but has not smoked since she got home. Family History: Unchanged from Admission Social History: Unchanged from Admission Past Medical History: Unchanged from Admission Objective Active Medications: Acetaminophen (Tylenol Tab*) 650 mg PO Q4H PRN PRN Reason: FEVER/PAIN Last Admin: 05/26/17 02:08 Dose: 650 mg Al Hydrox/Mg Hydrox/Simethicone (Maalox Plus*) 30 ml PO Q6H PRN PRN Reason: INDIGESTION Albuterol/Ipratropium (Duoneb (Albuterol 2.5 Mg/Ipratropium 0.5 Mg)) 1 neb INH [id number] AWAKE [facility] Last Admin: 05/26/17 13:26 Dose: 1 neb Alprazolam (Xanax Tab*) 0.25 mg PO Q6H PRN PRN Reason: ANXIETY Last Admin: 05/25/17 21:59 Dose: 0.25 mg Atorvastatin Calcium (Lipitor*) 10 mg PO 1700 [facility] Azithromycin (Zithromax Tab*) 250 mg PO DAILY [facility] Last Admin: 05/26/17 10:04 Dose: 250 mg Enoxaparin Sodium (Lovenox(*)) 70 mg SUBCUT Q12H [facility] Last Admin: 05/26/17 10:03 Dose: 70 mg Gabapentin (Neurontin Cap(*)) 100 mg PO BID [facility] Last Admin: 05/26/17 10:04 Dose: 100 mg Isosorbide Mononitrate (Imdur Er Tab*) 30 mg PO DAILY [facility] Last Admin: 05/26/17 10:06 Dose: 30 mg [place] Carbonate ([place] Carbonate Tab*) 300 mg PO BID [facility] Last Admin: 05/26/17 10:07 Dose: 300 mg Methylprednisolone Sodium Succinate (Solu-Medrol 40 Mg) 40 mg IV Q8H [facility] Last Admin: 05/26/17 13:20 Dose: 40 mg Metoprolol Tartrate (Lopressor Tab*) 25 mg PO BID [facility] Last Admin: 05/26/17 10:07 Dose: 25 mg Mirtazapine (Remeron Tab*) 7.5 mg PO BEDTIME [facility] Last Admin: 05/25/17 21:48 Dose: 7.5 mg Montelukast Sodium (Singulair Tab*) 10 mg PO DAILY [facility] Last Admin: 05/26/17 10:07 Dose: 10 mg Nicotine (Nicotine Inhaler*) 10 mg INH Q2H PRN PRN Reason: CRAVING Last Admin: 05/26/17 10:08 Dose: 10 mg Olanzapine (Zyprexa Tab*) 30 mg PO QPM [facility] Trazodone HCl (Desyrel Tab*) 50 mg PO BEDTIME PRN PRN Reason: SLEEP Last Admin: 05/26/17 02:19 Dose: 50 mg Warfarin Sodium (Coumadin Tab(*)) 3 mg PO DAILY@1700 [facility] PRN Reason: Protocol Vital Signs 05/26/17 05/26/17 05/26/17 03:48 07:45 08:05 Temperature 97.9 F 97.4 F Pulse Rate 69 52 73 Respiratory 20 18 18 Rate Blood Pressure 130/45 140/60 (mmHg) O2 Sat by Pulse 100 100 100 Oximetry Oxygen Devices in Use Now: Nasal Cannula Appearance: Pleasant lady sitting up in bed in NAD. Eyes: No Scleral Icterus Ears/Nose/Mouth/Throat: Mucous Membranes Moist Neck: Trachea Midline Respiratory: Symmetrical Chest Expansion and Respiratory Effort, - - BS+ bilaterally with scattered wheeze Cardiovascular: RRR - Normal S1 and S2 Abdominal: NL Sounds; No Tenderness; No Distention Neurological: Alert and Oriented x 3, NL Muscle Strength and Tone Lines/Tubes/Other Access: Clean, Dry and Intact Peripheral IV Nutrition: Taking PO's Result Diagrams: 05/26/17 06:16 05/26/17 06:17 Assess/Plan/Problems-Billing Assessment: Mrs. Camejo is a 61yo F with PMH of COPD on home O2, tobacco abuse, HTN, HLD, DVT, IBS, PVD, bipolar disorder, schizophrenia, who presented to ED with c/o chest pain and dyspnea, found to have COPD exacerbation. - Patient Problems (1) COPD exacerbation Comment: - States she quit smoking and has been compliant with her meds. - Will add Spiriva and Dulera. - Continue Albuterol, Solumedrol, and Azithromycin. Completed Levofloxacin recently. - This is her 3rd admission in 2 weeks, with multiple ED visits in between. Will request Pulmonary consult with Dr. Brink. (2) Tobacco abuse Comment: - Patient states she has not smoked at home and continues to use her nicotine inhaler. (3) Chest pain Comment: - ACS ruled out with serial negative troponins. - Suspect musculoskeletal pain associated with her frequent cough. - No significant arrhythmias on Tele - will d/c it. (4) Hypertension Comment: - Controlled - continue metoprolol. (5) HLD (hyperlipidemia) Comment: - Continue Atorvastatin. (6) Hx of deep venous thrombosis Comment: - INR subtherapeutic. - CTA chest was negative for PE and LE doppler negative for DVT. - Bridge with Lovenox until INR>2.0. (7) Schizoaffective disorder, bipolar type Comment: - Stable. - Continue Zyprexa, lithium and mirtazapine. (8) DVT prophylaxis Comment: - Warfarin/Lovenox. (9) Full code status Status and Disposition: Inpatient for management of COPD exacerbation requiring >48h for stabilization.
[2017-05-26] MEDS ORDERED: Spiriva Inhaler DEVICE* 1 EACH DEVICE SCH (15:00)
[2017-05-26] MEDS: Atorvastatin* 10 MG TAB PO SCH (15:52)
[2017-05-26] MEDS: Warfarin TAB(*) 3 MG PO SCH (15:52)
[2017-05-26] MEDS: OLANzapine TAB* 10 MG PO SCH (18:16)
[2017-05-26] MEDS: ALPRAZolam TAB* 0.25 MG PO PRN (18:28)
[2017-05-26] MEDS: Mirtazapine TAB* 15 MG PO SCH (20:09)
[2017-05-26] MEDS: Mometasone/Formoter 200/5 MDI INH SCH (21:17)
[2017-05-27] MEDS: Albuterol/Ipratropium NEB.SOL* Albuterol 2.5 MG/Ipratropium 0.5 MG 3 ML INH SCH ×4 (01:21→19:58)
[2017-05-27] MEDS: methylPREDNISolone SOD 40 MG* 1 ML VIAL IV SCH ×3 (03:47→19:37)
[2017-05-27] MEDS: Mometasone/Formoter 200/5 MDI INH SCH ×2 (08:40→19:57)
[2017-05-27] MEDS: Tiotropium CAP.INH* CAP.INH/18 MCG (USE ORDER SET !) INH SCH (08:40)
[2017-05-27] MEDS: Azithromycin TAB* 250 MG PO SCH (08:58)
[2017-05-27] MEDS: Enoxaparin(*) 80 MG/0.8 ML SYR SUBCUT SCH ×2 (08:58→19:37)
[2017-05-27] MEDS: Gabapentin CAP(*) 100 MG PO SCH ×2 (08:59→19:38)
[2017-05-27] MEDS: Isosorbide Mononitrate ER TAB* 30 MG PO SCH (08:59)
[2017-05-27] MEDS: Montelukast Sodium TAB* 10 MG PO SCH (09:00)
[2017-05-27] MEDS: Lithium Carbonate TAB* 300 MG PO SCH ×2 (09:00→19:37)
[2017-05-27] MEDS: Metoprolol Tartrate TAB* 25 MG PO SCH ×2 (09:00→19:38)
[2017-05-27] MEDS: Nicotine Inhaler* 10 MG AMP INH PRN ×3 (09:03→18:32)
--- NOTE | 2017-05-27 13:37 | PN ---
Subjective Date of Service: 05/27/17 Interval History: HOSPITALIST PROGRESS NOTE Patient seen and examined at bedside. She feels a little better today, but still dyspneic. CP is resolved. Family History: Unchanged from Admission Social History: Unchanged from Admission Past Medical History: Unchanged from Admission Objective Active Medications: Acetaminophen (Tylenol Tab*) 650 mg PO Q4H PRN PRN Reason: FEVER/PAIN Last Admin: 05/26/17 20:16 Dose: 650 mg Al Hydrox/Mg Hydrox/Simethicone (Maalox Plus*) 30 ml PO Q6H PRN PRN Reason: INDIGESTION Albuterol/Ipratropium (Duoneb (Albuterol 2.5 Mg/Ipratropium 0.5 Mg)) 1 neb INH [id number] AWAKE [facility] Last Admin: 05/27/17 13:06 Dose: 1 neb Alprazolam (Xanax Tab*) 0.25 mg PO Q6H PRN PRN Reason: ANXIETY Last Admin: 05/26/17 18:28 Dose: 0.25 mg Atorvastatin Calcium (Lipitor*) 10 mg PO 1700 [facility] Last Admin: 05/26/17 15:52 Dose: 10 mg Azithromycin (Zithromax Tab*) 250 mg PO DAILY [facility] Last Admin: 05/27/17 08:58 Dose: 250 mg Device (Tiotropium Inhaler Device*) 1 each .SEE ORDER .USE w/ SPIRIVA CAPS [facility] Enoxaparin Sodium (Lovenox(*)) 70 mg SUBCUT Q12H [facility] Last Admin: 05/27/17 08:58 Dose: 70 mg Gabapentin (Neurontin Cap(*)) 100 mg PO BID [facility] Last Admin: 05/27/17 08:59 Dose: 100 mg Isosorbide Mononitrate (Imdur Er Tab*) 30 mg PO DAILY [facility] Last Admin: 05/27/17 08:59 Dose: 30 mg [place] Carbonate ([place] Carbonate Tab*) 300 mg PO BID [facility] Last Admin: 05/27/17 09:00 Dose: 300 mg Methylprednisolone Sodium Succinate (Solu-Medrol 40 Mg) 40 mg IV Q8H [facility] Last Admin: 05/27/17 11:31 Dose: 40 mg Metoprolol Tartrate (Lopressor Tab*) 25 mg PO BID [facility] Last Admin: 05/27/17 09:00 Dose: 25 mg Mirtazapine (Remeron Tab*) 7.5 mg PO BEDTIME [facility] Last Admin: 05/26/17 20:09 Dose: 7.5 mg Mometasone Furoate/Formoterol Fumar (Dulera 200/5 Mdi*) 2 puff INH BID [facility] Last Admin: 05/27/17 08:40 Dose: 2 puff Montelukast Sodium (Singulair Tab*) 10 mg PO DAILY [facility] Last Admin: 05/27/17 09:00 Dose: 10 mg Nicotine (Nicotine Inhaler*) 10 mg INH Q2H PRN PRN Reason: CRAVING Last Admin: 05/27/17 11:30 Dose: 10 mg Olanzapine (Zyprexa Tab*) 30 mg PO QPM [facility] Last Admin: 05/26/17 18:16 Dose: 30 mg Tiotropium [place] (Spiriva Cap.Inh*) 1 cap INH DAILY [facility] Last Admin: 05/27/17 08:40 Dose: 1 cap Trazodone HCl (Desyrel Tab*) 50 mg PO BEDTIME PRN PRN Reason: SLEEP Last Admin: 05/26/17 02:19 Dose: 50 mg Warfarin Sodium (Coumadin Tab(*)) 3 mg PO DAILY@1700 [facility] PRN Reason: Protocol Last Admin: 05/26/17 15:52 Dose: 3 mg Vital Signs 05/27/17 05/27/17 05/27/17 03:55 07:54 08:00 Temperature 97.3 F Pulse Rate 52 53 Respiratory 16 18 Rate Blood Pressure 133/36 139/44 (mmHg) O2 Sat by Pulse 94 Oximetry Oxygen Devices in Use Now: Nasal Cannula Appearance: Pleasant lady lying in bed in NAD. Eyes: No Scleral Icterus Ears/Nose/Mouth/Throat: Mucous Membranes Moist Neck: Trachea Midline Respiratory: Symmetrical Chest Expansion and Respiratory Effort, - - BS+ bilaterally decreased with scattered wheezes Cardiovascular: RRR - Normal S1 and S2 Abdominal: NL Sounds; No Tenderness; No Distention Neurological: Alert and Oriented x 3, NL Muscle Strength and Tone Lines/Tubes/Other Access: Clean, Dry and Intact Peripheral IV Nutrition: Taking PO's Result Diagrams: 05/26/17 06:16 05/26/17 06:17 Assess/Plan/Problems-Billing Assessment: Mrs. Camejo is a 61yo F with PMH of COPD on home O2, tobacco abuse, HTN, HLD, DVT, IBS, PVD, bipolar disorder, schizophrenia, who presented to ED with c/o chest pain and dyspnea, found to have COPD exacerbation. - Patient Problems (1) COPD exacerbation Comment: - States she quit smoking and has been compliant with her meds. - Continue Spiriva and Dulera. - Continue Albuterol, Solumedrol, and Azithromycin. Completed Levofloxacin recently. - This is her 3rd admission in 2 weeks, with multiple ED visits in between. Will request Pulmonary consult with Dr. Brink. (2) Tobacco abuse Comment: - Patient states she has not smoked at home and continues to use her nicotine inhaler. (3) Chest pain Comment: - ACS ruled out with serial negative troponins. - Suspect musculoskeletal pain associated with her frequent cough. - No significant arrhythmias on Tele. (4) Hypertension Comment: - Controlled - continue metoprolol. (5) HLD (hyperlipidemia) Comment: - Continue Atorvastatin. (6) Hx of deep venous thrombosis Comment: - INR subtherapeutic. - CTA chest was negative for PE and LE doppler negative for DVT. - Bridge with Lovenox until INR>2.0. (7) Schizoaffective disorder, bipolar type Comment: - Stable. - Continue Zyprexa, lithium and mirtazapine. (8) DVT prophylaxis Comment: - Warfarin/Lovenox. (9) Full code status Status and Disposition: Inpatient for management of COPD exacerbation requiring >48h for stabilization.
[2017-05-27] MEDS: Atorvastatin* 10 MG TAB PO SCH (16:58)
[2017-05-27] MEDS: OLANzapine TAB* 10 MG PO SCH (16:58)
[2017-05-27] MEDS: Warfarin TAB(*) 3 MG PO SCH (16:58)
[2017-05-27] MEDS: Mirtazapine TAB* 15 MG PO SCH (19:38)
[2017-05-28] MEDS: Nicotine Inhaler* 10 MG AMP INH PRN ×4 (00:06→11:03)
[2017-05-28] MEDS: Albuterol/Ipratropium NEB.SOL* Albuterol 2.5 MG/Ipratropium 0.5 MG 3 ML INH SCH ×3 (01:24→13:51)
[2017-05-28] MEDS: methylPREDNISolone SOD 40 MG* 1 ML VIAL IV SCH ×2 (03:21→11:04)
[2017-05-28 07:23] LABS: Hematocrit 32 % (35-47); Hemoglobin 10.2 g/dl (12.0-16.0); Mean Corpuscular HGB Conc 32 g/dl (31-36); Mean Corpuscular Hemoglobin 27 pg (27-31); Mean Corpuscular Volume 86 fL (80-97); Mean Platelet Volume 8 um3 (7.4-10.4); Red Blood Count 3.73 10^6/ul (4.0-5.4); Red Cell Distribution Width 17 % (10.5-15); White Blood Count 5.7 10^3/ul (3.5-10.8)
[2017-05-28 08:09] VITALS: BP 133/54
[2017-05-28] MEDS: Enoxaparin(*) 80 MG/0.8 ML SYR SUBCUT SCH (08:16)
[2017-05-28] MEDS: Montelukast Sodium TAB* 10 MG PO SCH (08:17)
[2017-05-28] MEDS: Isosorbide Mononitrate ER TAB* 30 MG PO SCH (08:17)
[2017-05-28] MEDS: Gabapentin CAP(*) 100 MG PO SCH (08:17)
[2017-05-28] MEDS: Lithium Carbonate TAB* 300 MG PO SCH (08:17)
[2017-05-28] MEDS: Metoprolol Tartrate TAB* 25 MG PO SCH (08:17)
[2017-05-28] MEDS: Azithromycin TAB* 250 MG PO SCH (08:17)
[2017-05-28] MEDS: Mometasone/Formoter 200/5 MDI INH SCH (08:25)
[2017-05-28] MEDS: Tiotropium CAP.INH* CAP.INH/18 MCG (USE ORDER SET !) INH SCH (08:25)
[2017-05-28] MEDS: ALPRAZolam TAB* 0.25 MG PO PRN (14:24)
== END 2017-05-28 16:30 | disposition home health service (06) | DRG 190 ==
LOC: ED 17:49 → MEDTELE 20:19 → MED 05-26 22:45
PROVIDERS: ADMIT Internal Medicine; ATTEND Internal Medicine
DX: J44.1 Chronic obstructive pulmonary disease with (acute) exacerbation (principal); J96.21 Acute and chronic respiratory failure with hypoxia; J96.22 Acute and chronic respiratory failure with hypercapnia; I10 Essential (primary) hypertension; F25.0 Schizoaffective disorder, bipolar type; Z90.49 Acquired absence of other specified parts of digestive tract; Z88.1 Allergy status to other antibiotic agents; Z88.0 Allergy status to penicillin; Z88.8 Allergy status to other drugs, medicaments and biological substances; I25.10 Atherosclerotic heart disease of native coronary artery without angina pectoris; Z86.718 Personal history of other venous thrombosis and embolism; E78.00 Pure hypercholesterolemia, unspecified; I73.9 Peripheral vascular disease, unspecified; K21.9 Gastro-esophageal reflux disease without esophagitis; F41.9 Anxiety disorder, unspecified; F32.9 Major depressive disorder, single episode, unspecified; Z82.49 Family history of ischemic heart disease and other diseases of the circulatory system; Z81.8 Family history of other mental and behavioral disorders; F17.210 Nicotine dependence, cigarettes, uncomplicated; K58.9 Irritable bowel syndrome, unspecified; R07.9 Chest pain, unspecified; I35.1 Nonrheumatic aortic (valve) insufficiency; R00.0 Tachycardia, unspecified; Z79.82 Long term (current) use of aspirin
CPT/HCPCS: 36415; 36600; 71010; 71275; 80048; 80053; 80178; 82803; 83605; 84484; 85025; 85610; 85730; 93005; 94640; 94760; 99406; A9270-GY; J1650; J2920; J2930; Q9967

== ENCOUNTER 2017-06-02 18:01 | Inpatient (IN) | payer MEDICARE, MEDICAID ==
[2017-06-02] MEDS ORDERED: Albuterol/Ipratropium NEB.SOL* Albuterol 2.5 MG/Ipratropium 0.5 MG 3 ML INH ONE (19:55)
[2017-06-02] MEDS ORDERED: methylPREDNISolone 125 MG* 2 ML VIAL IV ONE (19:55)
--- NOTE | 2017-06-02 20:38 | RAD ---
Indication: Shortness of breath. Chest pain worse with inspiration. Tobacco use. Chronic obstructive pulmonary disease. Coronary artery disease. Comparison: May 25, 2017 CT. Technique: Upright AP 2000 hours Report: Elevated lung volumes and both diffuse mild prominence of the interstitial markings and patchy rarefaction of the mid to upper lung zone interstitial markings. No focal pulmonary lesion, compelling alveolar consolidation, pleural effusion, pneumothorax. Upper normal heart size. Unremarkable central pulmonary vasculature and mediastinal contours. IMPRESSION: Stigmata of obstructive lung disease. No acute pulmonary or cardiac process evident.
[2017-06-02 21:14] LABS: FIO2 32
[2017-06-02 21:18] LABS: PCO2 Arterial 37 mmHg (35-45)
[2017-06-02 21:39] LABS: Hematocrit 34 % (35-47); Hemoglobin 10.9 g/dl (12.0-16.0); Mean Corpuscular HGB Conc 32 g/dl (31-36); Mean Corpuscular Hemoglobin 27 pg (27-31); Mean Corpuscular Volume 86 fL (80-97); Mean Platelet Volume 8 um3 (7.4-10.4); Red Blood Count 3.99 10^6/ul (4.0-5.4); Red Cell Distribution Width 18 % (10.5-15); White Blood Count 6.8 10^3/ul (3.5-10.8)
[2017-06-02 21:54] LABS: Albumin 3.5 g/dL (3.2-5.2); BUN/Creatinine Ratio 19.2 (8-20); Calcium 9.6 mg/dL (8.6-10.3); EGFR African American 97.2 (>60); EGFR Non-African American 75.6 (>60); Globulin 2.6 g/dL (2-4); Magnesium 1.7 mg/dL (1.9-2.7); Total Bilirubin 0.3 mg/dL (0.2-1.0); Total Protein 6.1 g/dL (6.4-8.9)
[2017-06-02 21:56] LABS: Troponin I 0.01 ng/mL (<0.04)
[2017-06-02] MEDS ORDERED: CMCS: Melatonin (NF) 3 MG TAB PO PRN (22:14)
[2017-06-02] MEDS ORDERED: Acetaminophen TAB* 325 MG PO PRN (22:14)
[2017-06-02] MEDS ORDERED: Albuterol 2.5 MG/3 ML NEB.SOL* (0.083%) INH PRN (22:14)
[2017-06-02] MEDS ORDERED: Ondansetron INJ* 2 MG/ML VIAL IV PRN (22:15)
[2017-06-02] MEDS ORDERED: Magnesium Sulfate 2 GM IV* 2 GM/50 ML BAG IVPB ONE (22:15)
[2017-06-02] MEDS ORDERED: Magnesium Sulfate 2 GM IV* 0 GM/0 ML BAG ONE (22:24)
--- NOTE | 2017-06-02 23:35 | HP ---
H&P (Free Text) History and Physical: PCP: Reuben Schrader MD Date/Time of Evaluation: 06/02/2017 2205 CC: chest pain, SOB HPI: Mrs Camejo is a 61YO female with complex PMedHx as outlined below with frequent ED visits and admission recently for SOB presents this evening with onset of SOB around 1600 with 8/10 non-radiating, non-exertional chest tightness which is not unusual for her COPD. She continues to smoke. She admits to cough exacerbating the pain, but denies palpitations, F/C, changes in bowel/ bladder, chest congestion, nausea, sweats, or other issues. PMedHx COPD PAOD mild/mod aortic regurgitation diastolic dysfunction HTN HLD HX DVT IBS bipolar disorder schizophrenia anxiety depression Ambulatory Orders Montelukast Sodium TAB* [Singulair 10 MG TAB*] 10 mg PO DAILY 10/29/12 Esomeprazole(NF) [Nexium(NF)] 40 mg PO DAILY 09/29/15 Al Hydrox/Mg Hydrox/Simet LIQ* [Maalox Plus*] 30 ml PO DAILY PRN 12/29/15 Mirtazapine 7.5 mg PO BEDTIME 12/30/15 Isosorbide Mononitrate ER TAB* [Imdur ER TAB*] 30 mg PO DAILY #30 tab.er Fluticasone/Vilanterol MDI(NF) [Breo Ellipta MDI 100/25(NF)] 1 puff INH DAILY Albuterol 2.5MG/3ML (0.083%)* [Ventolin 2.5 MG/3 ML NEB.GINETTE*] 2.5 mg INH Q2H PRN #0 ml 01/26/17 Nicotine Inhaler* 10 inh INH Q2H PRN #50 inh 05/04/17 Albuterol inh POWDER (NF) [Proair Respiclick] 2 puff IN Q4H PRN #0 05/17/17 Atorvastatin* [Lipitor 10 MG*] 10 mg PO 1700 #30 tab 05/17/17 ALPRAZolam TAB* [Xanax TAB*] 0.25 mg PO Q6H PRN 05/25/17 Gabapentin CAP(*) [Neurontin 100 mg CAP(*)] 100 mg PO BID 05/25/17 [place] Carbonate TAB* 300 mg PO BID 05/25/17 Metoprolol Tartrate TAB* [Lopressor TAB*] 25 mg PO BID 05/25/17 OLANzapine TAB* [Zyprexa 10 MG TAB*] 10 mg PO QPM 05/25/17 Umeclidinium [place] [Incruse Ellipta] 62.5 mcg INH DAILY 05/25/17 Enoxaparin(*) [Lovenox(*)] 70 mg SUBCUT Q12H #10 syringe 05/28/17 Warfarin TAB(*) [Coumadin TAB(*)] 3 mg PO DAILY@1700 #30 tab 05/28/17 predniSONE TAB* [Deltasone TAB*] 10 mg PO SEE INSTRUCTIONS #33 tab 05/28/17 Allergies Penicillins [PCN] Allergy (Mild, Verified 06/02/17 22:16) Hives Chlorpromazine Adverse Reaction (Severe, Verified 06/02/17 18:10) Diarrhea and hives. Bupropion [From Wellbutrin] Adverse Reaction (Intermediate, Verified 06/02/17 22 :16) Agitation seizures. Cephalosporins Adverse Reaction (Intermediate, Verified 06/02/17 22:16) Agitation seizures. Erythromycin Adverse Reaction (Intermediate, Verified 06/02/17 18:10) Diarrhea Tobramycin Adverse Reaction (Intermediate, Verified 06/02/17 18:10) Diarrhea PSurgHx appendectomy hernia repair RLE stent SocHx: admits to 1 cigarette daily for the past 2 weeks w/ ~40PYHX, denies alcohol and recreational drugs; single, lives alone; full code status FamHx: positive for COPD, HTN, HLD, CAD ROS: as above, otherwise reviewed and all were negative Constitutional: NAD, normally developed, obese white female vitals: Vital Signs Temp 37.2 C 06/02/17 18:03 Pulse 82 06/02/17 22:00 Resp 22 06/02/17 20:20 BP 108/47 06/02/17 22:00 Pulse Ox 100 06/02/17 22:00 Intake & Output 06/01/17 06/02/17 06/02/17 23:59 11:59 23:59 Weight 80.286 kg HEENM: atraumatic; sclera/conjunctiva: non-icteric/clear; hearing: clinically intact; oropharynx: clear, mucosa moist Neck: soft tissue: non-tender; thyroid: normal Pulmonary: mid- to end-expiratory wheeze B, diminished throughout B, poor aeration, no accessory muscle use CV: TR/RR, normal S1S2, no carotid bruit, no jugular venous distention, 2+ B DP/ PT, trace LLE edema (chronic per patient) Abdominal: soft, non-distended, non-tender, no rebound/guarding/rigidity, normoactive bowel sounds, no hepatosplenomegaly or masses, no costovertebral angle tenderness Musculoskeletal: general: grossly intact; gait: stable Integumental: normal appearance and texture of exposed skin Psychiatric orientation: AA&O to PPS affect: calm mood: cooperative eye contact: fair to good content: reliable responses: timely insight: fair to poor Testing: Lab Results 06/02/17 06/02/17 06/02/17 Range/Units 20:40 20:40 20:40 WBC 6.8 (3.5-10.8) 10^3/ul RBC 3.99 L (4.0-5.4) 10^6/ul Hgb 10.9 L (12.0-16.0) g/dl Hct 34 L (35-47) % MCV 86 (80-97) fL MCH 27 (27-31) pg MCHC 32 (31-36) g/dl RDW 18 H (10.5-15) % Plt Count 143 L (150-450) 10^3/ul MPV 8 (7.4-10.4) um3 Neut % (Auto) 79.0 (38-83) % Lymph % (Auto) 15.8 L (25-47) % [place] % (Auto) 4.7 (1-9) % Eos % (Auto) 0.4 (0-6) % Baso % (Auto) 0.1 (0-2) % Absolute Neuts (auto) 5.4 (1.5-7.7) 10^3/ul Absolute Lymphs (auto) 1.1 (1.0-4.8) 10^3/ul Absolute Monos (auto) 0.3 (0-0.8) 10^3/ul Absolute Eos (auto) 0 (0-0.6) 10^3/ul Absolute Basos (auto) 0 (0-0.2) 10^3/ul Absolute Nucleated RBC 0 10^3/ul Nucleated RBC % 0 INR (Anticoag Therapy) 2.42 H (0.89-1.11) APTT 38.9 H (26.0-36.3) seconds Patient Temperature ABG pH (7.35-7.45) ABG pH (Temp Correct) ABG pCO2 (35-45) mmHg ABG pCO2 (Temp Corrct ABG pO2 (80-100) mmHg ABG pO2 (Temp Correct ABG HCO3 (19-31) mmol/L ABG O2 Saturation (95-98) % ABG Base Excess (-2.0-2.0) Respiration Rate Ventilator Type Vent Mode FiO2 Inspiratory Time PEEP Pressure Support Pressure Control EPAP IPAP BiPAP Sodium (133-145) mmol/L Potassium (3.5-5.0) mmol/L Chloride (101-111) mmol/L Carbon Dioxide (22-32) mmol/L Anion Gap (2-11) mmol/L BUN (6-24) mg/dL Creatinine (0.51-0.95) mg/dL Est GFR ( Amer) (>60) Est GFR (Non-Af Amer) (>60) BUN/Creatinine Ratio (8-20) Glucose (70-100) mg/dL Lactic Acid (0.5-2.0) mmol/L Calcium (8.6-10.3) mg/dL Magnesium (1.9-2.7) mg/dL Total Bilirubin (0.2-1.0) mg/dL AST (13-39) U/L ALT (7-52) U/L Alkaline Phosphatase (34-104) U/L Troponin I (<0.04) ng/mL B-Natriuretic Peptide 96 ( - 100) pg/mL Total Protein (6.4-8.9) g/dL Albumin (3.2-5.2) g/dL Globulin (2-4) g/dL Albumin/Globulin Ratio (1-3) 06/02/17 06/02/17 06/02/17 Range/Units 20:40 20:40 21:08 WBC (3.5-10.8) 10^3/ul RBC (4.0-5.4) 10^6/ul Hgb (12.0-16.0) g/dl Hct (35-47) % MCV (80-97) fL MCH (27-31) pg MCHC (31-36) g/dl RDW (10.5-15) % Plt Count (150-450) 10^3/ul MPV (7.4-10.4) um3 Neut % (Auto) (38-83) % Lymph % (Auto) (25-47) % [place] % (Auto) (1-9) % Eos % (Auto) (0-6) % Baso % (Auto) (0-2) % Absolute Neuts (auto) (1.5-7.7) 10^3/ul Absolute Lymphs (auto) (1.0-4.8) 10^3/ul Absolute Monos (auto) (0-0.8) 10^3/ul Absolute Eos (auto) (0-0.6) 10^3/ul Absolute Basos (auto) (0-0.2) 10^3/ul Absolute Nucleated RBC 10^3/ul Nucleated RBC % INR (Anticoag Therapy) (0.89-1.11) APTT (26.0-36.3) seconds Patient Temperature Not Reportable ABG pH 7.46 H (7.35-7.45) ABG pH (Temp Correct) Not Reportable ABG pCO2 37 (35-45) mmHg ABG pCO2 (Temp Corrct Not Reportable ABG pO2 145 H (80-100) mmHg ABG pO2 (Temp Correct Not Reportable ABG HCO3 26.8 (19-31) mmol/L ABG O2 Saturation 99.6 H (95-98) % ABG Base Excess 2.5 H (-2.0-2.0) Respiration Rate Not Reportable Ventilator Type Not Reportable Vent Mode Not Reportable FiO2 32 Inspiratory Time Not Reportable PEEP Not Reportable Pressure Support Not Reportable Pressure Control Not Reportable EPAP Not Reportable IPAP Not Reportable BiPAP Not Reportable Sodium 139 (133-145) mmol/L Potassium 4.0 (3.5-5.0) mmol/L Chloride 105 (101-111) mmol/L Carbon Dioxide 29 (22-32) mmol/L Anion Gap 5 (2-11) mmol/L BUN 15 (6-24) mg/dL Creatinine 0.78 (0.51-0.95) mg/dL Est GFR ( Amer) 97.2 (>60) Est GFR (Non-Af Amer) 75.6 (>60) BUN/Creatinine Ratio 19.2 (8-20) Glucose 78 (70-100) mg/dL Lactic Acid 0.8 (0.5-2.0) mmol/L Calcium 9.6 (8.6-10.3) mg/dL Magnesium 1.7 L (1.9-2.7) mg/dL Total Bilirubin 0.30 (0.2-1.0) mg/dL AST 10 L (13-39) U/L ALT 20 (7-52) U/L Alkaline Phosphatase 55 (34-104) U/L Troponin I 0.01 (<0.04) ng/mL B-Natriuretic Peptide ( - 100) pg/mL Total Protein 6.1 L (6.4-8.9) g/dL Albumin 3.5 (3.2-5.2) g/dL Globulin 2.6 (2-4) g/dL Albumin/Globulin Ratio 1.3 (1-3) ECG, personally reviewed: NSR rate 89, Q-waves II/III/AVF, no ischemia CXR, personally reviewed: IMPRESSION: Stigmata of obstructive lung disease. No acute pulmonary or cardiac process evident Impression: 61F presenting with chest pain typical of her COPD exacerbations which she is in and no acute cardiac findings DIAGNOSIS & PLAN Primary COPD exacerbation : albuterol nebs : mometasone/formoterol : tiotropium : methylprednisolone : guaifenesin : azithromycin : incentive spirometry : smoking cessation consulted/advised, fair motivation : supplemental oxygen : supportive care Secondary HTN : review meds once reconciled HLD : review meds once reconciled HX DVT : review meds once reconciled bipolar disorder : review meds once reconciled schizophrenia : review meds once reconciled depression : review meds once reconciled GERD : review meds once reconciled Admission Rational: observation for COPD exacerbation DVTp: warfarin Code Status: full
--- NOTE | 2017-06-02 23:57 | ED ---
Ramesh Laboy Rebecca, scribed for Juan Cooney on 06/02/17 at 1957 . Shortness of Breath - HPI Summary HPI Summary: Pt is a 61 y/o F, with a PMHx COPD, BIBA who presents to ED c/o SOB characterized as dyspnea at rest since this morning. Additionally c/o nonproductive cough and central CP that is currently moderate, ranked 5/10 and described as sharp. Treated with 1 Duoneb and 324 mg ASA en route to [facility] ED by EMS. Pain aggravated by palpation and deep breaths, alleviated by nothing. Pt has been evaluated by [facility] ED for similar sx multiple times in the last month. - History of Current Complaint Chief Complaint: EDShortnessOfBreath Time Seen by Provider: 06/02/17 18:33 Hx Obtained From: Patient Onset/Duration: Still Present Dyspnea At: Rest Aggrevating Factors: Deep Breaths - Pain, Other - Palpation - pain Alleviating Factors: Nothing Associated Signs & Symptoms: Cough (Nonproductive), Chest Pain Unrelated to Cough - Allergy/Home Medications Allergies/Adverse Reactions: Allergies Allergy/AdvReac Type Severity Reaction Status Date / Time Bupropion [From Wellbutrin] Allergy Severe Agitation Verified 06/02/17 18:10 Cephalosporins Allergy Severe Agitation Verified 06/02/17 18:10 Penicillins [PCN] Allergy Intermediate Hives Verified 06/02/17 18:10 Chlorpromazine AdvReac Severe Diarrhea Verified 06/02/17 18:10 Erythromycin AdvReac Intermediate Diarrhea Verified 06/02/17 18:10 Tobramycin AdvReac Intermediate Diarrhea Verified 06/02/17 18:10 PMH/Surg Hx/FS Hx/Imm Hx Endocrine/Hematology History: Reports: Hx Anticoagulant Therapy, Other Endocrine /Hematological Disorders - L leg DVT Denies: Hx Diabetes, Hx Systemic Lupus Erythematosus, Hx Thyroid Disease Cardiovascular History: Reports: Hx Angina, Hx Coronary Artery Disease, Hx Deep Vein Thrombosis, Hx Hypercholesterolemia, Hx Hypertension, Hx Peripheral Vascular Disease, Other Cardiovascular Problems/Disorders - PERIPHERAL ARTERY DISEASE; CAD; DVT Denies: Hx Congestive Heart Failure, Hx Pacemaker/ICD Respiratory History: Reports: Hx Asthma, Hx Chronic Bronchitis, Hx Chronic Obstructive Pulmonary Disease (COPD) - 2L at home, Hx Pneumonia, Hx Seasonal Allergies, Other Respiratory Problems/Disorders - PNA Denies: Hx Cystic Fibrosis, Hx Lung Cancer, Hx Pleural Effusion, Hx Pulmonary Edema, Hx Pulmonary Embolism, Hx Sleep Apnea GI History: Reports: Hx Gall Bladder Disease - removed, Hx Gastroesophageal Reflux Disease, Hx Irritable Bowel, Other GI Disorders - hernia repair X 2 Denies: Hx Cirrhosis, Hx Crohn's Disease, Hx Diverticulosis History: Denies: Hx Dialysis, Hx Renal Disease Musculoskeletal History: Denies: Hx Arthritis, Hx Rheumatoid Arthritis, Hx Osteoporosis Sensory History: Reports: Hx Contacts or Glasses Denies: Hx Glaucoma, Hx Deafness, Hx Hearing Aid, Hx Hearing Problem Opthamlomology History: Reports: Hx Contacts or Glasses Denies: Hx Glaucoma Neurological History: Denies: Hx Headaches, Hx Seizures, Hx Transient Ischemic Attacks (TIA) Psychiatric History: Reports: Hx Anxiety, Hx Depression, Hx Inpatient Treatment , Hx Community Mental Health Tx, Hx Schizophrenia, Hx Bipolar Disorder, Hx Suicide Attempt Denies: Hx Eating Disorder, Hx Panic Disorder, Hx of Violent Episodes Against Others - Cancer History Hx Chemotherapy: No - Surgical History Surgery Procedure, Year, and Place: bilat thumb repairs, hernia repairs X 2, cholecystectomy, appendectomy Hx Anesthesia Reactions: No - Immunization History Date of Tetanus Vaccine: UTD Date of Influenza Vaccine: UTD Infectious Disease History: No Infectious Disease History: Denies: Hx Clostridium Difficile, Hx Hepatitis, Hx Human Immunodeficiency Virus (HIV), Hx of Known/Suspected MRSA, Hx Shingles, Hx Tuberculosis, Traveled Outside the [place] in Last 30 Days - Family History Known Family History: Positive: Cardiac Disease - [place], Other - schizophrenia, anxiety Negative: Hypertension, Diabetes Family History: Negative HTN/DM per EMR - Social History Alcohol Use: None Hx Substance Use: No Substance Use Type: Reports: None Hx Tobacco Use: Yes Smoking Status (MU): Heavy Every Day Tobacco Smoker Type: Cigarettes Amount Used/How Often: half a pack a day Have You Smoked in the Last Year: Yes Review of Systems Positive: Chest Pain Positive: Shortness Of Breath, Cough All Other Systems Reviewed And Are Negative: Yes Physical Exam - Summary Physical Exam Summary: Appearance: Well appearing, no pain distress Skin: warm, dry, reflects adequate perfusion Head/face: normal Eyes: EOMI, CRISTIAN ENT: normal Neck: supple, nontender Respiratory: wheeze and rhonchi bilaterally to auscultation, breath sounds present Cardiovascular: regular rhythm, tachycardic, pulses symmetrical Abdomen: nontender, soft Bowel: present Musculoskeletal: bilateral pedal edema, strength/ROM intact Neuro: normal, sensory motor intact, A&Ox3 Triage Information Reviewed: Yes Vital Signs On Initial Exam: Initial Vitals Temp Pulse Resp BP Pulse Ox 99.0 F 111 22 145/53 99 06/02/17 18:03 06/02/17 18:03 06/02/17 18:03 06/02/17 18:03 06/02/17 18:03 Vital Signs Reviewed: Yes - Callie Coma Scale Coma Scale Total: 15 Diagnostics - Vital Signs Vital Signs Temp Pulse Resp BP Pulse Ox 06/02/17 18:11 110 100 06/02/17 18:05 22 06/02/17 18:03 99.0 F 111 22 145/53 99 - Laboratory Result Diagrams: 06/02/17 20:40 06/02/17 20:40 Lab Statement: Any lab studies that have been ordered have been reviewed, and results considered in the medical decision making process. - Radiology CXR Xray Interpretation: No Acute Changes - Stigmata of obstructive lung disease. No acute pulmonary or cardiac process evident. ED physician reviewed radiology report and agrees. Radiology Interpretation Completed By: Radiologist - EKG 2026 Cardiac Rate: NL - 89 bpm EKG Rhythm: Sinus Rhythm EKG Interpretation: No acute changes Course/Dx - Course Assessment/Plan: Pt is a 61 y/o F, with a PMHx COPD, BIBA who presents to ED c/ o SOB characterized as dyspnea at rest since this morning. Additionally c/o nonproductive cough and central CP that is currently moderate, ranked 5/10 and described as sharp. Treated with 1 Duoneb and 324 mg ASA en route to [facility] ED by EMS. Pain aggravated by palpation and deep breaths. Pt has been evaluated by [facility] ED for similar sx multiple times in the last month. CXR reveals no acute findings and EKG is sinus rhythm with no acute changes. Troponin of 0.01. In the ED course, pt received Duoneb tx and Solu-Medrol. Discussed care of pt with Dr. Hugo who accepts pt for admission. Pt will be admitted with Dx of COPD exacerbation. She understands and agrees. Elevated BP noted and advisde to f/u with PCP. Patient medications reviewed this visit. - Diagnoses Provider Diagnoses: COPD exacerbation - Physician Notifications Discussed Care of Patient With: Star Hugo Time Discussed With Above Provider: 21:55 Instructed by Provider To: Other - Accepts pt for admission Discharge - Discharge Plan Condition: Stable Disposition: ADMITTED TO [facility] The documentation as recorded by the Ramesh kiran Rebecca accurately reflects the service I personally performed and the decisions made by , Juan Cooney.
[2017-06-03 00:17] LABS: Urine Bilirubin Negative (Negative); Urine Glucose Negative (Negative); Urine Nitrite Negative (Negative)
[2017-06-03] MEDS: Albuterol 2.5 MG/3 ML NEB.SOL* (0.083%) INH SCH ×4 (01:47→20:11)
[2017-06-03] MEDS ORDERED: Mouth Piece, Nicotine* 1 EACH CARTRIDGE INH ONE (03:00)
[2017-06-03] MEDS: methylPREDNISolone SOD 40 MG* 1 ML VIAL IV SCH ×3 (03:27→20:39)
[2017-06-03] MEDS: Nicotine Inhaler* 10 MG AMP INH PRN ×6 (05:49→22:56)
[2017-06-03] MEDS ORDERED: Omeprazole CAP* 20 MG PO SCH (06:00)
--- NOTE | 2017-06-03 07:54 | PN ---
Subjective Date of Service: 06/03/17 Interval History: Patient seen this morning. Still reports difficulty breathing, slightly better than when she came in. Continues to smoke, had a cigarette yesterday prior to worsening SOB. As per last discharge patient had reported she had Pulm appt on , today she states it is in fact next month Family History: Unchanged from Admission Social History: Unchanged from Admission Past Medical History: Unchanged from Admission Objective Active Medications: Acetaminophen (Tylenol Tab*) 650 mg PO Q6H PRN Albuterol (Ventolin 2.5 Mg/3 Ml Neb.Tania*) 2.5 mg INH Q2H PRN Albuterol (Ventolin 2.5 Mg/3 Ml Neb.Tania*) 2.5 mg INH [id number] AWAKE ELI Alprazolam (Xanax Tab*) 0.25 mg PO Q6H PRN Atorvastatin Calcium (Lipitor*) 10 mg PO 1700 ELI Device (Tiotropium Inhaler Device*) 1 each INH ONCE ONE Docusate Sodium (Colace Cap*) 200 mg PO BID ELI Gabapentin (Neurontin Cap(*)) 100 mg PO BID ELI Guaifenesin (Mucinex*) 1,200 mg PO BID ELI Isosorbide Mononitrate (Imdur Er Tab*) 30 mg PO DAILY ELI [place] Carbonate ([place] Carbonate Tab*) 300 mg PO BID ELI Melatonin (Melatonin (Nf)) 3 mg PO BEDTIME PRN; Protocol Methylprednisolone Sodium Succinate (Solu-Medrol 40 Mg) 40 mg IV Q8H ELI Metoprolol Tartrate (Lopressor Tab*) 25 mg PO BID ELI Mirtazapine (Remeron Tab*) 7.5 mg PO BEDTIME ELI Mometasone Furoate/Formoterol Fumar (Dulera 200/5 Mdi*) 2 puff INH BID ELI Montelukast Sodium (Singulair Tab*) 10 mg PO DAILY ELI Nicotine (Nicotine Inhaler*) 10 mg INH Q2H PRN Olanzapine (Zyprexa Tab*) 10 mg PO QPM ELI Omeprazole (Prilosec Cap*) 20 mg PO DAILY ELI Ondansetron HCl (Zofran Inj*) 4 mg IV Q6H PRN Tiotropium [place] (Spiriva Cap.Inh*) 1 cap INH DAILY ELI Warfarin Sodium (Coumadin Tab(*)) 3 mg PO DAILY@1700 [facility] Vital Signs 06/02/17 06/02/17 06/03/17 22:37 23:34 03:41 Temperature 97.4 F 97.4 F 97.5 F Pulse Rate 79 79 78 Respiratory 22 22 22 Rate Blood Pressure 128/48 128/48 126/53 (mmHg) O2 Sat by Pulse 100 100 Oximetry 06/03/17 07:49 Temperature 97.8 F Pulse Rate 86 Respiratory 32 Rate Blood Pressure 136/59 (mmHg) O2 Sat by Pulse 100 Oximetry Oxygen Devices in Use Now: Nasal Cannula Appearance: Middle-aged, F, appears older than stated age, laying in bed in NAD Eyes: No Scleral Icterus Ears/Nose/Mouth/Throat: Mucous Membranes Moist Neck: NL Appearance and Movements; NL JVP Respiratory: Symmetrical Chest Expansion and Respiratory Effort, - - Diffuse wheezing throughout all lung [place] Cardiovascular: NL Sounds; No Murmurs; No JVD, RRR Abdominal: NL Sounds; No Tenderness; No Distention Lymphatic: No Cervical Adenopathy Extremities: No Edema Skin: No Rash or Ulcers Neurological: Alert and Oriented x 3 Result Diagrams: 06/02/17 20:40 06/02/17 20:40 Assess/Plan/Problems-Billing Assessment: COPD exacerbation 2/2 continued tobacco abuse in a 61 yo F with hx of O2- dependent COPD, HTN, HLD, DVT on coumadin, bipolar disorder, anxiety - Patient Problems (1) COPD exacerbation Current Visit: No Comment: Multiple admissions for this problem. Continue IV steroids, nebs/inhalers, Azithromycin. Wean to home O2. Consider Pulm consult this admission. (2) Hx of deep venous thrombosis Current Visit: No Comment: INR therapeutic, continue coumadin (3) Hypertension Current Visit: No Comment: Continue metoprolol. (4) HLD (hyperlipidemia) Current Visit: No Comment: Continue Atorvastatin. (5) Schizoaffective disorder, bipolar type Current Visit: No Comment: Continue Zyprexa, lithium and mirtazapine. (6) DVT prophylaxis Current Visit: No Comment: Warfarin Status and Disposition: Inpatient for COPD exacerbation
[2017-06-03] MEDS: Gabapentin CAP(*) 100 MG PO SCH ×2 (08:00→20:32)
[2017-06-03] MEDS: guaiFENesin ER TAB 600 MG PO SCH ×2 (08:00→20:32)
[2017-06-03] MEDS: Lithium Carbonate TAB* 300 MG PO SCH ×2 (08:00→20:32)
[2017-06-03] MEDS: Isosorbide Mononitrate ER TAB* 30 MG PO SCH (08:00)
[2017-06-03] MEDS: Docusate CAP* 100 MG PO SCH ×2 (08:00→20:32)
[2017-06-03] MEDS: Montelukast Sodium TAB* 10 MG PO SCH (08:01)
[2017-06-03] MEDS: Metoprolol Tartrate TAB* 25 MG PO SCH ×2 (08:01→20:33)
[2017-06-03] MEDS: Omeprazole CAP* 20 MG PO SCH (08:01)
[2017-06-03] MEDS: ALPRAZolam TAB* 0.25 MG PO PRN (08:01)
[2017-06-03] MEDS: Mometasone/Formoter 200/5 MDI INH SCH ×2 (08:38→20:12)
[2017-06-03] MEDS: Tiotropium CAP.INH* CAP.INH/18 MCG (USE ORDER SET !) INH SCH (08:39)
[2017-06-03] MEDS ORDERED: Spiriva Inhaler DEVICE* 1 EACH DEVICE INH ONE (09:00)
[2017-06-03] MEDS: Atorvastatin* 10 MG TAB PO SCH (15:23)
[2017-06-03] MEDS: Warfarin TAB(*) 3 MG PO SCH (15:23)
[2017-06-03] MEDS: OLANzapine TAB* 10 MG PO SCH (18:21)
[2017-06-03] MEDS: Mirtazapine TAB* 15 MG PO SCH (20:33)
[2017-06-04] MEDS: Albuterol 2.5 MG/3 ML NEB.SOL* (0.083%) INH SCH ×4 (00:44→19:55)
[2017-06-04] MEDS: Nicotine Inhaler* 10 MG AMP INH PRN ×6 (03:28→20:54)
[2017-06-04] MEDS: methylPREDNISolone SOD 40 MG* 1 ML VIAL IV SCH ×3 (03:34→20:54)
[2017-06-04] MEDS: Montelukast Sodium TAB* 10 MG PO SCH (07:26)
[2017-06-04] MEDS: Gabapentin CAP(*) 100 MG PO SCH ×2 (07:26→20:55)
[2017-06-04] MEDS: Lithium Carbonate TAB* 300 MG PO SCH ×2 (07:26→20:56)
[2017-06-04] MEDS: Isosorbide Mononitrate ER TAB* 30 MG PO SCH (07:26)
[2017-06-04] MEDS: Omeprazole CAP* 20 MG PO SCH (07:27)
[2017-06-04] MEDS: ALPRAZolam TAB* 0.25 MG PO PRN ×3 (07:27→22:28)
[2017-06-04] MEDS: Docusate CAP* 100 MG PO SCH ×2 (07:27→20:54)
[2017-06-04] MEDS: Metoprolol Tartrate TAB* 25 MG PO SCH ×2 (07:27→20:56)
[2017-06-04] MEDS: guaiFENesin ER TAB 600 MG PO SCH ×2 (07:27→20:55)
[2017-06-04] MEDS: Mometasone/Formoter 200/5 MDI INH SCH ×2 (07:52→19:56)
[2017-06-04] MEDS: Tiotropium CAP.INH* CAP.INH/18 MCG (USE ORDER SET !) INH SCH (07:52)
--- NOTE | 2017-06-04 12:28 | PN ---
Subjective Date of Service: 06/04/17 Interval History: HOSPITALIST PROGRESS NOTE Patient seen and examined at bedside. She feels better today, less dyspnea and cough. CP is resolved. Although H&P states she still smokes, she denies it. States her major issue is her home is "full of smoke" and when she returns home she starts to get dyspneic again. Family History: Unchanged from Admission Social History: Unchanged from Admission Past Medical History: Unchanged from Admission Objective Active Medications: Acetaminophen (Tylenol Tab*) 650 mg PO Q6H PRN PRN Reason: FEVER/PAIN Albuterol (Ventolin 2.5 Mg/3 Ml Neb.Tania*) 2.5 mg INH Q2H PRN PRN Reason: SOB/WHEEZING Albuterol (Ventolin 2.5 Mg/3 Ml Neb.Tania*) 2.5 mg INH [id number] AWAKE [facility] Last Admin: 06/04/17 07:50 Dose: 2.5 mg Alprazolam (Xanax Tab*) 0.25 mg PO Q6H PRN PRN Reason: ANXIETY Last Admin: 06/04/17 07:27 Dose: 0.25 mg Atorvastatin Calcium (Lipitor*) 10 mg PO 1700 [facility] Last Admin: 06/03/17 15:23 Dose: 10 mg Docusate Sodium (Colace Cap*) 200 mg PO BID [facility] Last Admin: 06/04/17 07:27 Dose: 200 mg Gabapentin (Neurontin Cap(*)) 100 mg PO BID [facility] Last Admin: 06/04/17 07:26 Dose: 100 mg Guaifenesin (Mucinex*) 1,200 mg PO BID [facility] Last Admin: 06/04/17 07:27 Dose: 1,200 mg Isosorbide Mononitrate (Imdur Er Tab*) 30 mg PO DAILY [facility] Last Admin: 06/04/17 07:26 Dose: 30 mg [place] Carbonate ([place] Carbonate Tab*) 300 mg PO BID [facility] Last Admin: 06/04/17 07:26 Dose: 300 mg Melatonin (Melatonin (Nf)) 3 mg PO BEDTIME PRN; Protocol PRN Reason: Sleep Methylprednisolone Sodium Succinate (Solu-Medrol 40 Mg) 40 mg IV Q8H [facility] Last Admin: 06/04/17 11:22 Dose: 40 mg Metoprolol Tartrate (Lopressor Tab*) 25 mg PO BID [facility] Last Admin: 06/04/17 07:27 Dose: 25 mg Mirtazapine (Remeron Tab*) 7.5 mg PO BEDTIME [facility] Last Admin: 06/03/17 20:33 Dose: 7.5 mg Mometasone Furoate/Formoterol Fumar (Dulera 200/5 Mdi*) 2 puff INH BID [facility] Last Admin: 06/04/17 07:52 Dose: 2 puff Montelukast Sodium (Singulair Tab*) 10 mg PO DAILY [facility] Last Admin: 06/04/17 07:26 Dose: 10 mg Nicotine (Nicotine Inhaler*) 10 mg INH Q2H PRN PRN Reason: CRAVING Last Admin: 06/04/17 11:23 Dose: 10 mg Olanzapine (Zyprexa Tab*) 10 mg PO QPM [facility] Last Admin: 06/03/17 18:21 Dose: 10 mg Omeprazole (Prilosec Cap*) 20 mg PO DAILY [facility] PRN Reason: Protocol Last Admin: 06/04/17 07:27 Dose: 20 mg Ondansetron HCl (Zofran Inj*) 4 mg IV Q6H PRN PRN Reason: NAUSEA Tiotropium [place] (Spiriva Cap.Inh*) 1 cap INH DAILY [facility] Last Admin: 06/04/17 07:52 Dose: 1 cap Warfarin Sodium (Coumadin Tab(*)) 3 mg PO DAILY@1700 [facility] PRN Reason: Protocol Last Admin: 06/03/17 15:23 Dose: 3 mg Vital Signs 06/04/17 11:21 Temperature 97.6 F Pulse Rate 70 Respiratory 18 Rate Blood Pressure 136/49 (mmHg) O2 Sat by Pulse 99 Oximetry Oxygen Devices in Use Now: Nasal Cannula Appearance: Pleasant lady lying in bed in NAD. Eyes: No Scleral Icterus Ears/Nose/Mouth/Throat: Mucous Membranes Moist Neck: Trachea Midline Respiratory: Symmetrical Chest Expansion and Respiratory Effort, - - BS+ bilaterally decreased, scattered wheezing Cardiovascular: RRR - Normal S1 and S2 Abdominal: NL Sounds; No Tenderness; No Distention Extremities: No Edema Neurological: Alert and Oriented x 3, NL Muscle Strength and Tone Lines/Tubes/Other Access: Clean, Dry and Intact Peripheral IV Nutrition: Taking PO's Result Diagrams: 06/02/17 20:40 06/02/17 20:40 Assess/Plan/Problems-Billing Assessment: Mrs. Camejo is a 61yo F with PMH of COPD on home O2, tobacco abuse, HTN, HLD, DVT, IBS, PVD, bipolar disorder, schizophrenia, who presented to ED with c/o chest pain and dyspnea, found to have COPD exacerbation. - Patient Problems (1) COPD exacerbation Current Visit: No Status: Acute Priority: Medium Code(s): J44.1 - CHRONIC OBSTRUCTIVE PULMONARY DISEASE W (ACUTE) EXACERBATION SNOMED Code(s): 109653716 Comment: - This is her 8th hospital visit and 4th admission this month for the same complaints. - Did not go to her Pulmonary appointment last Sunday. - States she's compliant with her meds and has not smoked. - She thinks the problem is her home - it's "full of smoke" after she smoked in there for so long. - Pulm consult requested. - Will request CM/SW assistance with resources in the community. Patient needs a manager case. (2) Tobacco abuse Comment: - Patient states she has not smoked at home and continues to use her nicotine inhaler. (3) Hypertension Comment: - Controlled. - Continue metoprolol. (4) HLD (hyperlipidemia) Comment: - Continue Atorvastatin. (5) Hx of deep venous thrombosis Comment: - INR therapeutic, continue coumadin. (6) Schizoaffective disorder, bipolar type Comment: - Continue Zyprexa, lithium and mirtazapine. (7) DVT prophylaxis Comment: - Warfarin. (8) Full code status Status and Disposition: Inpatient for COPD exacerbation
[2017-06-04] MEDS: Warfarin TAB(*) 3 MG PO SCH (15:32)
[2017-06-04] MEDS: Atorvastatin* 10 MG TAB PO SCH (15:32)
--- NOTE | 2017-06-04 15:48 | CONS ---
PULMONARY CONSULTATION REPORT: DATE OF CONSULTATION: 06/04/17 CONSULTATION REQUESTED BY: Dr. Woods. REASON FOR CONSULTATION: Evaluation of COPD. HISTORY OF PRESENT ILLNESS: The patient is a 61-year-old female with history of COPD, DVT of left lower extremity, recurrent admissions recently for acute COPD exacerbation, was recently in the hospital, 05/25/17, when she was treated for acute COPD exacerbation and was discharged home on 05/30/17. The patient returned to the emergency room on 06/02/17 for evaluation of worsening shortness of breath after she smoked a cigarette. The patient reports gradually worsening shortness of breath recently. She was in the hospital and in the emergency room multiple times over the past year. She has been in and out of ED in the hospital since January 2017. The patient continues to smoke. The patient lives alone at home. She has a home health aide. The patient reports significant cough with sputum production. The patient reports difficulty expectorating the phlegm. The patient has not been compliant with the inhalers as prescribed. The patient also has history of bipolar disorder. The patient was admitted on 06/02/17, again with a diagnosis of acute COPD exacerbation. The patient denies fever or chills at home. She reports chest discomfort related to coughing; however, denies palpitations, chest congestion, nausea, sweats, bowel or bladder changes. She has dyspnea on exertion with significant exertion. The patient was started on Solu-Medrol. She is currently on 40 mg IV q.8. She was recently treated with antibiotics and is currently not on antibiotics. Chest x-ray was personally reviewed by me. No acute airspace opacities. I have personally reviewed CT scan of the chest performed during recent hospitalization - evidence of mild emphysematous changes at the bases bilaterally, no suspicious nodules or masses noted. No mediastinal or hilar adenopathy noted. PAST MEDICAL HISTORY: 1. DVT. 2. COPD, on 2 L home O2. 3. Schizophrenia. 4. Hypertension. 5. Peripheral arterial disease. 6. Moderate aortic regurgitation. 7. Diastolic dysfunction. 8. Hypertension. 9. Dyslipidemia. 10. IBS. 11. Bipolar disorder. 12. Anxiety/depression. MEDICATIONS: 1. Xanax. 2. Incruse. 3. Maalox. 4. Albuterol inhaler and nebulizer. 5. Lipitor. 6. Azithromycin, which she completed. 7. Nexium. 8. Breo. 9. Neurontin. 10. Fluticasone. 11. Imdur. 12. [place] carbonate. 13. Lopressor. 14. Remeron. 15. Singulair. 16. Nicotine inhaler. 17. Zyprexa. 18. Coumadin. 19. Percocet. 20. Prednisone taper. SOCIAL HISTORY: She lives at [facility]. Used to smoke half a pack a day, cut down to few cigarettes. REVIEW OF SYSTEMS: All 14 systems reviewed and as per HPI. PHYSICAL EXAMINATION: The patient in bed in no apparent distress, mildly tachypneic. HEENT: Pupils equal, reactive to light, mucous membranes moist. Neck: No cervical adenopathy. No JVD. Supple. Chest: No significant wheezing or rhonchi, prolonged expiratory phase. Cardiovascular: S1, S2 present. No murmurs, gallops or rubs. Abdomen: Soft, nontender, nondistended. Bowel sounds present. Extremities: Normal range of motion. Left lower extremity is edematous. Neurologic: No focal deficits. LABORATORY DATA: WBC count 6.8, hemoglobin 10.9, hematocrit 34, platelet count 143,000. INR 2.42. Blood gas analysis showed pH of 7.46, pCO2 37, pO2 145, on 32% FiO2 with O2 sat of 99%. Sodium 139, potassium 4.0, chloride 105, bicarb 29 , BUN 15, creatinine 0.78, lactic acid 0.8. Chest x-ray on 06/02/17, as described above in HPI. CT scan from prior admission as described above in HPI. IMPRESSION AND RECOMMENDATION: 61-year-old female, current smoker with recurrent bronchitis recently, concern for asthmatic bronchitis given history of allergies. The patient does not appear to be having hypercapnic respiratory failure or hypoxemic respiratory failure, blood gas analysis did not reveal significant retention of CO2 or chronic hypercapnia. She is on room air currently. The patient denied gastroesophageal reflux disease symptoms or sleep symptoms , less likely to be acid reflux disease or sleep apnea contributing to the symptoms. She does not appear to have lower extremity edema, BNP is normal, do not suspect component of heart failure. Part of her shortness of breath could also related to underlying psychiatric illness. She would benefit from flutter device and airway mucus clearance. I would recommend Mucinex. She will need education regarding her disease process and realize importance of smoking cessation. She would benefit from outpatient pulmonary rehab. Smoking cessation education was performed during today's visit that lasted 4 minutes. She was offered an appointment last Sunday soon after her discharge; however, she did not want to come for that appointment and rescheduled it to a month later. Will follow her as outpatient. Thank you for allowing me to participate in the care of your patient. [id number]/[facility] #: [id number] ANNITA
[2017-06-04] MEDS: OLANzapine TAB* 10 MG PO SCH (17:44)
[2017-06-04] MEDS: Mirtazapine TAB* 15 MG PO SCH (20:56)
[2017-06-05] MEDS: Albuterol 2.5 MG/3 ML NEB.SOL* (0.083%) INH SCH ×4 (01:14→19:25)
[2017-06-05] MEDS: Nicotine Inhaler* 10 MG AMP INH PRN ×5 (02:31→19:44)
[2017-06-05] MEDS: methylPREDNISolone SOD 40 MG* 1 ML VIAL IV SCH ×3 (04:03→20:34)
[2017-06-05] MEDS: Tiotropium CAP.INH* CAP.INH/18 MCG (USE ORDER SET !) INH SCH (08:00)
[2017-06-05] MEDS: Mometasone/Formoter 200/5 MDI INH SCH ×2 (08:00→19:29)
[2017-06-05] MEDS: Isosorbide Mononitrate ER TAB* 30 MG PO SCH (09:12)
[2017-06-05] MEDS: Metoprolol Tartrate TAB* 25 MG PO SCH ×2 (09:12→20:35)
[2017-06-05] MEDS: Gabapentin CAP(*) 100 MG PO SCH ×2 (09:12→20:34)
[2017-06-05] MEDS: guaiFENesin ER TAB 600 MG PO SCH ×2 (09:12→20:35)
[2017-06-05] MEDS: Montelukast Sodium TAB* 10 MG PO SCH (09:12)
[2017-06-05] MEDS: Docusate CAP* 100 MG PO SCH ×2 (09:12→20:33)
[2017-06-05] MEDS: Lithium Carbonate TAB* 300 MG PO SCH ×2 (09:12→20:35)
[2017-06-05] MEDS: Omeprazole CAP* 20 MG PO SCH (09:12)
--- NOTE | 2017-06-05 14:15 | PN ---
Subjective Date of Service: 06/05/17 Interval History: HOSPITALIST PROGRESS NOTE Patient seen and examined at bedside. She's still a little dyspneic, but better than on admission. Denies chest pain. Family History: Unchanged from Admission Social History: Unchanged from Admission Past Medical History: Unchanged from Admission Objective Active Medications: Acetaminophen (Tylenol Tab*) 650 mg PO Q6H PRN PRN Reason: FEVER/PAIN Albuterol (Ventolin 2.5 Mg/3 Ml Neb.Tania*) 2.5 mg INH Q2H PRN PRN Reason: SOB/WHEEZING Albuterol (Ventolin 2.5 Mg/3 Ml Neb.Tania*) 2.5 mg INH [id number] AWAKE [facility] Last Admin: 06/05/17 08:00 Dose: 2.5 mg Alprazolam (Xanax Tab*) 0.25 mg PO Q6H PRN PRN Reason: ANXIETY Last Admin: 06/04/17 22:28 Dose: 0.25 mg Atorvastatin Calcium (Lipitor*) 10 mg PO 1700 [facility] Last Admin: 06/04/17 15:32 Dose: 10 mg Docusate Sodium (Colace Cap*) 200 mg PO BID [facility] Last Admin: 06/05/17 09:12 Dose: 200 mg Gabapentin (Neurontin Cap(*)) 100 mg PO BID [facility] Last Admin: 06/05/17 09:12 Dose: 100 mg Guaifenesin (Mucinex*) 1,200 mg PO BID [facility] Last Admin: 06/05/17 09:12 Dose: 1,200 mg Isosorbide Mononitrate (Imdur Er Tab*) 30 mg PO DAILY [facility] Last Admin: 06/05/17 09:12 Dose: 30 mg [place] Carbonate ([place] Carbonate Tab*) 300 mg PO BID [facility] Last Admin: 06/05/17 09:12 Dose: 300 mg Melatonin (Melatonin (Nf)) 3 mg PO BEDTIME PRN; Protocol PRN Reason: Sleep Methylprednisolone Sodium Succinate (Solu-Medrol 40 Mg) 40 mg IV Q8H [facility] Last Admin: 06/05/17 12:21 Dose: 40 mg Metoprolol Tartrate (Lopressor Tab*) 25 mg PO BID [facility] Last Admin: 06/05/17 09:12 Dose: 25 mg Mirtazapine (Remeron Tab*) 7.5 mg PO BEDTIME [facility] Last Admin: 06/04/17 20:56 Dose: 7.5 mg Mometasone Furoate/Formoterol Fumar (Dulera 200/5 Mdi*) 2 puff INH BID [facility] Last Admin: 06/05/17 08:00 Dose: 2 puff Montelukast Sodium (Singulair Tab*) 10 mg PO DAILY [facility] Last Admin: 06/05/17 09:12 Dose: 10 mg Nicotine (Nicotine Inhaler*) 10 mg INH Q2H PRN PRN Reason: CRAVING Last Admin: 06/05/17 12:36 Dose: 10 mg Olanzapine (Zyprexa Tab*) 10 mg PO QPM [facility] Last Admin: 06/04/17 17:44 Dose: 10 mg Omeprazole (Prilosec Cap*) 20 mg PO DAILY [facility] PRN Reason: Protocol Last Admin: 06/05/17 09:12 Dose: 20 mg Ondansetron HCl (Zofran Inj*) 4 mg IV Q6H PRN PRN Reason: NAUSEA Tiotropium [place] (Spiriva Cap.Inh*) 1 cap INH DAILY [facility] Last Admin: 06/05/17 08:00 Dose: 1 cap Warfarin Sodium (Coumadin Tab(*)) 3 mg PO DAILY@1700 [facility] PRN Reason: Protocol Last Admin: 06/04/17 15:32 Dose: 3 mg Vital Signs 06/05/17 06/05/17 06/05/17 01:05 04:19 07:26 Temperature 97.8 F 97.4 F Pulse Rate 74 73 Respiratory 16 18 17 Rate Blood Pressure 139/56 155/65 (mmHg) O2 Sat by Pulse 100 100 Oximetry Oxygen Devices in Use Now: Nasal Cannula Appearance: Pleasant lady lying in bed in NAD. Eyes: No Scleral Icterus Ears/Nose/Mouth/Throat: Mucous Membranes Moist Neck: Trachea Midline Respiratory: Symmetrical Chest Expansion and Respiratory Effort, - - BS+ bilaterally with scattered wheeze Cardiovascular: RRR - Normal S1 and S2 Abdominal: NL Sounds; No Tenderness; No Distention Extremities: No Edema Neurological: Alert and Oriented x 3, NL Muscle Strength and Tone Lines/Tubes/Other Access: Clean, Dry and Intact Peripheral IV Nutrition: Taking PO's Result Diagrams: 06/02/17 20:40 06/02/17 20:40 Assess/Plan/Problems-Billing Assessment: Mrs. Camejo is a 61yo F with PMH of COPD on home O2, tobacco abuse, HTN, HLD, DVT, IBS, PVD, bipolar disorder, schizophrenia, who presented to ED with c/o chest pain and dyspnea, found to have COPD exacerbation. - Patient Problems (1) COPD exacerbation Current Visit: No Status: Acute Priority: Medium Code(s): J44.1 - CHRONIC OBSTRUCTIVE PULMONARY DISEASE W (ACUTE) EXACERBATION SNOMED Code(s): 843794979 Comment: - This is her 8th hospital visit and 4th admission this month for the same complaints. - Did not go to her Pulmonary appointment last Sunday. - States she's compliant with her meds and has not smoked. - She thinks the problem is her home - it's "full of smoke" after she smoked in there for so long. - Pulm consult appreciated. - CM/SW assistance with resources in the community. Patient needs a therapeutic case manager or may benefit of placement. (2) Tobacco abuse Comment: - Patient states she has not smoked at home and continues to use her nicotine inhaler. (3) Hypertension Comment: - Controlled. - Continue metoprolol. (4) HLD (hyperlipidemia) Comment: - Continue Atorvastatin. (5) Hx of deep venous thrombosis Comment: - INR therapeutic, continue coumadin. (6) Schizoaffective disorder, bipolar type Comment: - Continue Zyprexa, lithium and mirtazapine. (7) DVT prophylaxis Comment: - Warfarin. (8) Full code status Status and Disposition: Inpatient for COPD exacerbation
[2017-06-05] MEDS: Atorvastatin* 10 MG TAB PO SCH (18:24)
[2017-06-05] MEDS: OLANzapine TAB* 10 MG PO SCH (18:24)
[2017-06-05] MEDS: Warfarin TAB(*) 3 MG PO SCH (18:24)
[2017-06-05] MEDS: ALPRAZolam TAB* 0.25 MG PO PRN (20:34)
[2017-06-05] MEDS: Mirtazapine TAB* 15 MG PO SCH (20:35)
[2017-06-06] MEDS: Albuterol 2.5 MG/3 ML NEB.SOL* (0.083%) INH SCH ×5 (01:42→19:55)
[2017-06-06] MEDS: Nicotine Inhaler* 10 MG AMP INH PRN ×3 (03:33→14:12)
[2017-06-06] MEDS: methylPREDNISolone SOD 40 MG* 1 ML VIAL IV SCH ×2 (03:34→14:13)
[2017-06-06] MEDS: Mometasone/Formoter 200/5 MDI INH SCH ×2 (08:04→19:55)
[2017-06-06] MEDS: Tiotropium CAP.INH* CAP.INH/18 MCG (USE ORDER SET !) INH SCH (08:05)
[2017-06-06] MEDS: Isosorbide Mononitrate ER TAB* 30 MG PO SCH (10:31)
[2017-06-06] MEDS: guaiFENesin ER TAB 600 MG PO SCH (10:31)
[2017-06-06] MEDS: Omeprazole CAP* 20 MG PO SCH (10:31)
[2017-06-06] MEDS: Gabapentin CAP(*) 100 MG PO SCH (10:32)
[2017-06-06] MEDS: Montelukast Sodium TAB* 10 MG PO SCH (10:33)
[2017-06-06] MEDS: Lithium Carbonate TAB* 300 MG PO SCH (10:33)
[2017-06-06] MEDS: Metoprolol Tartrate TAB* 25 MG PO SCH (10:33)
[2017-06-06] MEDS: Docusate CAP* 100 MG PO SCH (10:33)
--- NOTE | 2017-06-06 15:36 | DS ---
CC: Dr. Schrader; Dr. Brink; [facility]* DISCHARGE SUMMARY: DATE OF ADMISSION: 06/02/17 DATE OF DISCHARGE: 06/06/17 PRIMARY CARE PROVIDER: Dr. Schrader. DISPOSITION: The patient is being discharged to [facility] for rehabilitation. DISCHARGE DIAGNOSIS: Chronic obstructive pulmonary disease exacerbation. SECONDARY DIAGNOSES: 1. History of chronic obstructive pulmonary disease, on home O2 at 2 L. 2. History of tobacco abuse. 3. Hypertension. 4. Hyperlipidemia. 5. History of deep vein thrombosis, on Coumadin. 6. History of irritable bowel syndrome. 7. Peripheral vascular disease. 8. History of bipolar disorder and schizophrenia. MEDICATIONS AT DISCHARGE: Include: 1. Incruse Ellipta 62.5 mcg daily. 2. Olanzapine 10 mg daily at bedtime. 3. Alprazolam 0.25 mg every 6 hours p.r.n. anxiety. 4. [place] carbonate 300 mg b.i.d. 5. Metoprolol tartrate 25 mg b.i.d. 6. Gabapentin 100 mg b.i.d. 7. Breo [place] 100/25 one puff daily. 8. Singulair 10 mg daily. 9. Mirtazapine 7.5 mg at bedtime. 10. Nexium 40 mg daily. 11. Maalox Plus 30 mL daily as needed for indigestion. 12. Albuterol nebulizer every 12 hours p.r.n. 13. Atorvastatin 10 mg daily. 14. Nicotine inhaler on a p.r.n. basis. 15. Imdur ER 30 mg daily. 16. Prednisone taper, patient is to take 60 mg daily for 3 days, then 40 mg daily for 3 days, then 20 mg daily for 3 days, then 10 mg daily for 3 days and 5 mg daily for 3 days, then stop. 17. Coumadin 3 mg daily. LABORATORY DATA AND STUDIES PERFORMED DURING THE HOSPITAL STAY: Include: On 06/05/17, INR of 2.26. Remaining laboratory values are unchanged from admission. The patient at discharge is recommended to have an INR checked on Sunday, . HOSPITALIZATION COURSE: Daina Camejo is a 61-year-old female with history of medical noncompliance and COPD, oxygen dependent on 2 L, who presented to the hospital with yet another exacerbation of her chronic condition. The patient had been admitted to the hospital 3 times this month and seen in the ER 8 times this month. The patient was treated for exacerbation and did very well on parenteral steroids. Due to her problems with living situation and visits, she is chronically noncompliant. She accepted our recommendation to be admitted to rehabilitation center for further management of her chronic condition. She is going to be discharged to [facility] for further rehab. PHYSICAL EXAMINATION: At the time of discharge, blood pressure of 137/58, heart rate is 80, respiratory rate 18, oxygen saturation 97% on room air, temperature of 97.8. General: This is a pleasant 61-year-old female who appears older than her stated age. The patient is in no acute distress. Alert , awake, and oriented x3. HEENT: Head is atraumatic, normocephalic. Eyes: Pupils are equal, reactive to light and accommodation. Oropharynx is clear. Mucosa moist. Neck: Supple. No JVD, no bruits bilaterally. Cardiovascular: Regular rate and rhythm. No murmur. Respiratory: Coarse breath sounds bilaterally with bilateral mid lung wheezes. Abdomen: Soft, nontender. Bowel sounds present in all quadrants. Extremities: There is trace bilateral pedal edema. Pulses +2 bilaterally. No clubbing or cyanosis. Neuro Evaluation: Speech clear. Cranial nerves II through XII grossly intact. Motor strength is 5/5 bilaterally. Psychiatric Evaluation: Patient is oriented x3 with no evidence of anxiety or depression. FOLLOW UP: Patient is recommended to follow up with primary care provider at the retirement. Patient is recommended to have an INR checked in 2 days. Please note that this is a short summary of patient's hospitalization. Please refer to further medical records for details. TIME SPENT: Approximately 45 minutes were spent on the patient's discharge. [id number]/[facility] #: [id number] ANNITA
[2017-06-06 15:44] VITALS: BP 130/61
--- NOTE | 2017-06-06 15:49 | PN ---
Progress Note - Progress Note Date of Service: 06/06/17 - Pulm f/u note Note: Pt seen and examined at bedside. Pt reports improvement in breathing. Cough is improved. Active Medications Generic Name Dose Route Start Last Admin Trade Name Freq PRN Reason Stop Dose Admin Acetaminophen 650 mg 06/02/17 22:14 Tylenol Tab* PO Q6H PRN FEVER/PAIN Albuterol 2.5 mg 06/02/17 22:14 Ventolin 2.5 Mg/3 Ml Neb.Tania* INH Q2H PRN SOB/WHEEZING Albuterol 2.5 mg 06/03/17 01:00 06/06/17 13:39 Ventolin 2.5 Mg/3 Ml Neb.Tania* INH 2.5 mg [id number] AWAKE ELI Administration Alprazolam 0.25 mg 06/02/17 22:17 06/05/17 20:34 Xanax Tab* PO 0.25 mg Q6H PRN Administration ANXIETY Atorvastatin Calcium 10 mg 06/03/17 17:00 06/05/17 18:24 Lipitor* PO 10 mg 1700 ELI Administration Docusate Sodium 200 mg 06/03/17 09:00 06/06/17 10:33 Colace Cap* PO 200 mg BID [facility]I Administration Gabapentin 100 mg 06/03/17 09:00 06/06/17 10:32 Neurontin Cap(*) PO 100 mg BID [facility] Administration Guaifenesin 1,200 mg 06/03/17 09:00 06/06/17 10:31 Mucinex* PO 1,200 mg BID [facility]I Administration Isosorbide Mononitrate 30 mg 06/03/17 09:00 06/06/17 10:31 Imdur Er Tab* PO 30 mg DAILY [facility]I Administration [place] Carbonate 300 mg 06/03/17 09:00 06/06/17 10:33 [place] Carbonate Tab* PO 300 mg BID [facility] Administration Melatonin 3 mg 06/02/17 22:14 Melatonin (Nf) PO BEDTIME PRN Sleep Protocol Methylprednisolone Sodium Succinate 40 mg 06/03/17 04:00 06/06/17 14:13 Solu-Medrol 40 Mg IV 40 mg Q8H [facility]I Administration Metoprolol Tartrate 25 mg 06/03/17 09:00 06/06/17 10:33 Lopressor Tab* PO 25 mg BID [facility] Administration Mirtazapine 7.5 mg 06/03/17 21:00 06/05/17 20:35 Remeron Tab* PO 7.5 mg BEDTIME [facility]I Administration Mometasone Furoate/Formoterol Fumar 2 puff 06/03/17 09:00 06/06/17 08:04 Dulera 200/5 Mdi* INH 2 puff BID [facility]I Administration Montelukast Sodium 10 mg 06/03/17 09:00 06/06/17 10:33 Singulair Tab* PO 10 mg DAILY [facility] Administration Nicotine 10 mg 06/02/17 22:15 06/06/17 14:12 Nicotine Inhaler* INH 10 mg Q2H PRN Administration CRAVING Olanzapine 10 mg 06/03/17 18:00 06/05/17 18:24 Zyprexa Tab* PO 10 mg QPM [facility]I Administration Omeprazole 20 mg 06/03/17 09:00 06/06/17 10:31 Prilosec Cap* PO 20 mg DAILY [facility] Administration Protocol Ondansetron HCl 4 mg 06/02/17 22:15 Zofran Inj* IV Q6H PRN NAUSEA Tiotropium [place] 1 cap 06/03/17 09:00 06/06/17 08:05 Spiriva Cap.Inh* INH 1 cap DAILY [facility] Administration Warfarin Sodium 3 mg 06/03/17 17:00 06/05/17 18:24 Coumadin Tab(*) PO 3 mg DAILY@1700 [facility] Administration Protocol Vital Signs Temp Pulse Resp BP Pulse Ox 97.7 F 88 20 130/61 100 06/06/17 15:28 06/06/17 15:28 06/06/17 15:28 06/06/17 15:28 06/06/17 15:28 Gen: Pt in NAD, walking in room. HEENT: No Scleral Icterus, Mucous Membranes Moist Neck: Supple, No JVD Respiratory: BS+ bilaterally,scattered wheeze Cardiovascular: RRR, Normal S1 and S2 Abdominal: NL Sounds, No Tenderness Extremities: No Edema Neurological: No focal defecits I/R: 61yo obese F with COPD on home O2, ongoing tobacco abuse presented to ED with c/o chest pain and dyspnea, found to have COPD exacerbation. Symptoms are improved, breathing and cough are better c/w bronchodilators Pt was educated regarding COPD and ongoing lung damage with smoking Risk with decline in lung function with continued smoking was also discussed c/w O2 Will f/u as out pt
[2017-06-06] MEDS ORDERED: Famotidine TAB* 20 MG PO PRN (21:53)
[2017-06-06] MEDS ORDERED: Famotidine TAB* 20 MG PO ONE (21:53)
== END 2017-06-06 16:10 | DRG 192 ==
LOC: ED 18:01 → MED 22:03 → OBSVTOIN 06-03 07:56 → MED 06-05 00:13
PROVIDERS: ADMIT Hospitalist; ATTEND Internal Medicine
DX: J44.1 Chronic obstructive pulmonary disease with (acute) exacerbation (principal); Z99.81 Dependence on supplemental oxygen; F25.0 Schizoaffective disorder, bipolar type; I10 Essential (primary) hypertension; F17.210 Nicotine dependence, cigarettes, uncomplicated; Z86.718 Personal history of other venous thrombosis and embolism; E78.5 Hyperlipidemia, unspecified; K58.9 Irritable bowel syndrome, unspecified; F41.9 Anxiety disorder, unspecified; I73.9 Peripheral vascular disease, unspecified; I35.1 Nonrheumatic aortic (valve) insufficiency; E66.9 Obesity, unspecified; Z88.0 Allergy status to penicillin; Z88.1 Allergy status to other antibiotic agents; Z88.8 Allergy status to other drugs, medicaments and biological substances; I25.10 Atherosclerotic heart disease of native coronary artery without angina pectoris; Z82.49 Family history of ischemic heart disease and other diseases of the circulatory system; Z81.8 Family history of other mental and behavioral disorders; Z83.6 Family history of other diseases of the respiratory system; K21.9 Gastro-esophageal reflux disease without esophagitis; Z79.01 Long term (current) use of anticoagulants; Z68.30 Body mass index [BMI] 30.0-30.9, adult
CPT/HCPCS: 36415; 36600; 71010; 80053; 81003; 82803; 83605; 83735; 83880; 84484; 85025; 85610; 85730; 87040; 93005; 94640; 94760; 99406; A9270-GY; J2920; J2930; J3475

== ENCOUNTER 2017-06-29 12:19 | Emergency (ER) | payer MEDICARE, MEDICAID ==
--- NOTE | 2017-06-29 13:33 | RAD ---
Indication: Shortness of breath. COPD. On oxygen. Comparison: June 02, 2017 Technique: Sitting AP and lateral chest views. Report: Diffuse mild to moderate prominence of the interstitial markings. No alveolar consolidation, focal pulmonary lesion, pleural effusion, pneumothorax. The heart, pulmonary vasculature, and mediastinal contours are unremarkable. IMPRESSION: Stigmata of chronic obstructive pulmonary disease. No acute cardiopulmonary process evident.
[2017-06-29 14:38] LABS: Hematocrit 29 % (35-47); Hemoglobin 9.4 g/dl (12.0-16.0); Mean Corpuscular HGB Conc 33 g/dl (31-36); Mean Corpuscular Hemoglobin 27 pg (27-31); Mean Corpuscular Volume 84 fL (80-97); Mean Platelet Volume 9 um3 (7.4-10.4); Red Blood Count 3.46 10^6/ul (4.0-5.4); Red Cell Distribution Width 18 % (10.5-15); White Blood Count 5.9 10^3/ul (3.5-10.8)
[2017-06-29 14:50] LABS: Albumin 3.4 g/dL (3.2-5.2); BUN/Creatinine Ratio 6.3 (8-20); C Reactive Protein 27.37 mg/L (< 5.00); Calcium 8.9 mg/dL (8.6-10.3); EGFR African American 94.4 (>60); EGFR Non-African American 73.4 (>60); Globulin 2.3 g/dL (2-4); Potassium 3.6 mmol/L (3.5-5.0); Total Bilirubin 0.3 mg/dL (0.2-1.0); Total Protein 5.7 g/dL (6.4-8.9)
[2017-06-29 14:51] LABS: Troponin I 0.01 ng/mL (<0.04)
[2017-06-29 16:31] VITALS: BP 125/55
[2017-06-29 16:50] LABS: Urine Bacteria Absent (Absent); Urine Bilirubin Negative (Negative); Urine Glucose Negative (Negative); Urine Nitrite Negative (Negative)
--- NOTE | 2017-07-01 08:16 | ED ---
De Laboy Angela, scribed for Yovanny Roque MD on 06/29/17 at 1254 . Shortness of Breath - HPI Summary HPI Summary: This pt is a 61 y/o female presenting to [facility] c/o worsening SOB and non- productive cough for a couple of days. Pt reports she also has a pounding headache and nausea. Pt denies fever, chest pain, and vomiting. Per nurse's note, pt was just discharged from [facility] following "respiratory rehab." PMHx includes asthma, COPD, HTN. - History of Current Complaint Chief Complaint: EDShortnessOfBreath Time Seen by Provider: 06/29/17 12:26 Hx Obtained From: Patient Onset/Duration: Lasting Days, Still Present Timing: Constant Associated Signs & Symptoms: Cough (Nonproductive) - Allergy/Home Medications Allergies/Adverse Reactions: Allergies Allergy/AdvReac Type Severity Reaction Status Date / Time Penicillins [PCN] Allergy Mild Hives Verified 06/02/17 22:16 Chlorpromazine AdvReac Severe Diarrhea Verified 06/02/17 18:10 Bupropion [From Wellbutrin] AdvReac Intermediate Agitation Verified 06/02/17 22: 16 Cephalosporins AdvReac Intermediate Agitation Verified 06/02/17 22:16 Erythromycin AdvReac Intermediate Diarrhea Verified 06/02/17 18:10 Tobramycin AdvReac Intermediate Diarrhea Verified 06/02/17 18:10 PMH/Surg Hx/FS Hx/Imm Hx Endocrine/Hematology History: Reports: Hx Anticoagulant Therapy, Other Endocrine /Hematological Disorders - L leg DVT Denies: Hx Diabetes, Hx Systemic Lupus Erythematosus, Hx Thyroid Disease Cardiovascular History: Reports: Hx Angina, Hx Coronary Artery Disease, Hx Deep Vein Thrombosis, Hx Hypercholesterolemia, Hx Hypertension, Hx Peripheral Vascular Disease, Other Cardiovascular Problems/Disorders - PERIPHERAL ARTERY DISEASE; CAD; DVT Denies: Hx Congestive Heart Failure, Hx Pacemaker/ICD Respiratory History: Reports: Hx Asthma, Hx Chronic Bronchitis, Hx Chronic Obstructive Pulmonary Disease (COPD) - 2L at home, Hx Pneumonia, Hx Seasonal Allergies, Other Respiratory Problems/Disorders - PNA Denies: Hx Cystic Fibrosis, Hx Lung Cancer, Hx Pleural Effusion, Hx Pulmonary Edema, Hx Pulmonary Embolism, Hx Sleep Apnea GI History: Reports: Hx Gall Bladder Disease - removed, Hx Gastroesophageal Reflux Disease, Hx Irritable Bowel, Other GI Disorders - hernia repair X 2 Denies: Hx Cirrhosis, Hx Crohn's Disease, Hx Diverticulosis History: Denies: Hx Dialysis, Hx Renal Disease Musculoskeletal History: Denies: Hx Arthritis, Hx Rheumatoid Arthritis, Hx Osteoporosis Sensory History: Reports: Hx Contacts or Glasses Denies: Hx Glaucoma, Hx Deafness, Hx Hearing Aid, Hx Hearing Problem Opthamlomology History: Reports: Hx Contacts or Glasses Denies: Hx Glaucoma Neurological History: Denies: Hx Headaches, Hx Seizures, Hx Transient Ischemic Attacks (TIA) Psychiatric History: Reports: Hx Anxiety, Hx Depression, Hx Inpatient Treatment , Hx Community Mental Health Tx, Hx Schizophrenia, Hx Bipolar Disorder, Hx Suicide Attempt Denies: Hx Eating Disorder, Hx Panic Disorder, Hx of Violent Episodes Against Others - Cancer History Hx Chemotherapy: No - Surgical History Surgery Procedure, Year, and Place: bilat thumb repairs, hernia repairs X 2, cholecystectomy, appendectomy Hx Anesthesia Reactions: No - Immunization History Date of Tetanus Vaccine: UTD Date of Influenza Vaccine: UTD Infectious Disease History: No Infectious Disease History: Denies: Hx Clostridium Difficile, Hx Hepatitis, Hx Human Immunodeficiency Virus (HIV), Hx of Known/Suspected MRSA, Hx Shingles, Hx Tuberculosis, Traveled Outside the [place] in Last 30 Days - Family History Known Family History: Positive: Cardiac Disease - NM, Other - schizophrenia, anxiety Negative: Hypertension, Diabetes Family History: Negative HTN/DM per EMR - Social History Alcohol Use: None Hx Substance Use: No Substance Use Type: Reports: None Hx Tobacco Use: Yes Smoking Status (MU): Heavy Every Day Tobacco Smoker Type: Cigarettes Amount Used/How Often: half a pack a day Have You Smoked in the Last Year: Yes Review of Systems Negative: Fever, Chills Negative: Chest Pain Positive: Shortness Of Breath, Cough Positive: Nausea. Negative: Vomiting Positive: Headache All Other Systems Reviewed And Are Negative: Yes Physical Exam - Summary Physical Exam Summary: VITAL SIGNS: Reviewed. GENERAL: Patient is a well-developed and nourished male who is lying comfortable in the stretcher. Patient is not in any acute respiratory distress. HEAD AND FACE: No signs of trauma. No ecchymosis, hematomas or skull depressions. No sinus tenderness. EYES: PERRLA, EOMI x 2, No injected conjunctiva, no nystagmus. EARS: Hearing grossly intact. Ear canals and tympanic membranes are within normal limits. MOUTH: Oropharynx within normal limits. NECK: Supple, trachea is midline, no adenopathy, no JVD, no carotid bruit, no c- spine tenderness, neck with full ROM. CHEST: Symmetric, no tenderness at palpation LUNGS: There is wheezing and crackles at both bases of the lungs. CVS: Regular rate and rhythm, S1 and S2 present, no murmurs or gallops appreciated. ABDOMEN: Soft, non-tender. No signs of distention. No rebound no guarding, and no masses palpated. Bowel sounds are normal. EXTREMITIES: FROM in all major joints, no edema, no cyanosis or clubbing. NEURO: Alert and oriented x 3. No acute neurological deficits. Speech is normal and follows commands. SKIN: Dry and warm Triage Information Reviewed: Yes Vital Signs On Initial Exam: Initial Vitals Temp Pulse Resp BP Pulse Ox 98.2 F 105 34 139/69 97 06/29/17 12:26 06/29/17 12:26 06/29/17 12:26 06/29/17 12:26 06/29/17 12:26 Vital Signs Reviewed: Yes - [place] Coma Scale Coma Scale Total: 15 Diagnostics - Vital Signs Vital Signs Temp Pulse Resp BP Pulse Ox 06/29/17 12:32 106 21 95 06/29/17 12:31 139/69 06/29/17 12:26 98.2 F 105 34 139/69 97 - Laboratory Lab Results: Lab Results 06/29/17 06/29/17 06/29/17 Range/Units 12:59 12:59 15:37 WBC 5.9 (3.5-10.8) 10^3/ul RBC 3.46 L (4.0-5.4) 10^6/ul Hgb 9.4 L (12.0-16.0) g/dl Hct 29 L (35-47) % MCV 84 (80-97) fL MCH 27 (27-31) pg MCHC 33 (31-36) g/dl RDW 18 H (10.5-15) % Plt Count 154 (150-450) 10^3/ul MPV 9 (7.4-10.4) um3 Neut % (Auto) 76.9 (38-83) % Lymph % (Auto) 14.9 L (25-47) % [place] % (Auto) 6.6 (1-9) % Eos % (Auto) 1.1 (0-6) % Baso % (Auto) 0.5 (0-2) % Absolute Neuts (auto) 4.6 (1.5-7.7) 10^3/ul Absolute Lymphs (auto) 0.9 L (1.0-4.8) 10^3/ul Absolute Monos (auto) 0.4 (0-0.8) 10^3/ul Absolute Eos (auto) 0.1 (0-0.6) 10^3/ul Absolute Basos (auto) 0 (0-0.2) 10^3/ul Absolute Nucleated RBC 0.02 10^3/ul Nucleated RBC % 0.3 Sodium 137 (133-145) mmol/L Potassium 3.6 (3.5-5.0) mmol/L Chloride 105 (101-111) mmol/L Carbon Dioxide 28 (22-32) mmol/L Anion Gap 4 (2-11) mmol/L BUN 5 L (6-24) mg/dL Creatinine 0.80 (0.51-0.95) mg/dL Est GFR ( Amer) 94.4 (>60) Est GFR (Non-Af Amer) 73.4 (>60) BUN/Creatinine Ratio 6.3 L (8-20) Glucose 97 (70-100) mg/dL Calcium 8.9 (8.6-10.3) mg/dL Total Bilirubin 0.30 (0.2-1.0) mg/dL AST 9 L (13-39) U/L ALT 11 (7-52) U/L Alkaline Phosphatase 58 (34-104) U/L Total Creatine Kinase 16 (10-223) U/L Troponin I 0.01 (<0.04) ng/mL C-Reactive Protein 27.37 H (< 5.00) mg/L Total Protein 5.7 L (6.4-8.9) g/dL Albumin 3.4 (3.2-5.2) g/dL Globulin 2.3 (2-4) g/dL Albumin/Globulin Ratio 1.5 (1-3) Urine Color Urine Appearance Urine pH (5-9) Ur Specific [place] (1.010-1.030) Urine Protein (Negative) Urine Ketones (Negative) Urine Blood (Negative) Urine Nitrate (Negative) Urine Bilirubin (Negative) Urine Urobilinogen (Negative) Ur Leukocyte Esterase (Negative) Urine WBC (Auto) (Absent) Urine RBC (Auto) (Absent) Ur Squamous Epith Cells (Absent) Amorphous Crystals (Absent) Urine Bacteria (Absent) Urine Glucose (Negative) Influenza A (Rapid) Negative (Negative) Influenza B (Rapid) Negative (Negative) 06/29/17 Range/Units 16:20 WBC (3.5-10.8) 10^3/ul RBC (4.0-5.4) 10^6/ul Hgb (12.0-16.0) g/dl Hct (35-47) % MCV (80-97) fL MCH (27-31) pg MCHC (31-36) g/dl RDW (10.5-15) % Plt Count (150-450) 10^3/ul MPV (7.4-10.4) um3 Neut % (Auto) (38-83) % Lymph % (Auto) (25-47) % [place] % (Auto) (1-9) % Eos % (Auto) (0-6) % Baso % (Auto) (0-2) % Absolute Neuts (auto) (1.5-7.7) 10^3/ul Absolute Lymphs (auto) (1.0-4.8) 10^3/ul Absolute Monos (auto) (0-0.8) 10^3/ul Absolute Eos (auto) (0-0.6) 10^3/ul Absolute Basos (auto) (0-0.2) 10^3/ul Absolute Nucleated RBC 10^3/ul Nucleated RBC % Sodium (133-145) mmol/L Potassium (3.5-5.0) mmol/L Chloride (101-111) mmol/L Carbon Dioxide (22-32) mmol/L Anion Gap (2-11) mmol/L BUN (6-24) mg/dL Creatinine (0.51-0.95) mg/dL Est GFR ( Amer) (>60) Est GFR (Non-Af Amer) (>60) BUN/Creatinine Ratio (8-20) Glucose (70-100) mg/dL Calcium (8.6-10.3) mg/dL Total Bilirubin (0.2-1.0) mg/dL AST (13-39) U/L ALT (7-52) U/L Alkaline Phosphatase (34-104) U/L Total Creatine Kinase (10-223) U/L Troponin I (<0.04) ng/mL C-Reactive Protein (< 5.00) mg/L Total Protein (6.4-8.9) g/dL Albumin (3.2-5.2) g/dL Globulin (2-4) g/dL Albumin/Globulin Ratio (1-3) Urine Color Yellow Urine Appearance Cloudy Urine pH 6.0 (5-9) Ur Specific [place] 1.004 L (1.010-1.030) Urine Protein Negative (Negative) Urine Ketones Negative (Negative) Urine Blood Negative (Negative) Urine Nitrate Negative (Negative) Urine Bilirubin Negative (Negative) Urine Urobilinogen Negative (Negative) Ur Leukocyte Esterase 2+ H (Negative) Urine WBC (Auto) 2+(11-20/hpf) H (Absent) Urine RBC (Auto) Absent (Absent) Ur Squamous Epith Cells Present H (Absent) Amorphous Crystals Present H (Absent) Urine Bacteria Absent (Absent) Urine Glucose Negative (Negative) Influenza A (Rapid) (Negative) Influenza B (Rapid) (Negative) Result Diagrams: 06/29/17 12:59 06/29/17 12:59 Lab Statement: Any lab studies that have been ordered have been reviewed, and results considered in the medical decision making process. - Radiology Chest XR Xray Interpretation: No Acute Changes - IMPRESSION: Stigmata of chronic obstructive pulmonary disease. No acute cardiopulmonary process evident. ED physician has reviewed this radiology report and agrees. Radiology Interpretation Completed By: Radiologist - EKG 12:41 Cardiac Rate: NL - 96 bpm EKG Rhythm: Sinus Rhythm EKG Interpretation: No ST elevation. Q wave in II, III, and aVF. Course/Dx - Course Assessment/Plan: This pt is a 61 y/o female presenting to [facility] c/o worsening SOB and non-productive cough for a couple of days. Pt reports she also has a pounding headache and nausea. Pt denies fever, chest pain, and vomiting. Per nurse's note, pt was just discharged from [facility] following "respiratory rehab.". Test result without any significant abnormalities. Chest XR shows stigmata of chronic obstructive pulmonary disease. No acute cardiopulmonary process evident. In the Ed course, the pt was given solu-medrol and duo nebs. Multiple examinations shows clear lungs. She is saturated at baseline and is feeling better. Pt denies any other complaints. She is ambulating to the bathroom without SOB. She is not hypoxic. Therefore, the pt will be discharged home with follow up from her PCP. PMHx includes asthma, COPD, HTN. - Diagnoses Differential Diagnosis/HQI/PQRI: Positive: Bronchitis, CHF, COPD Exacerbation, Pulmonary Edema Provider Diagnoses: COPD exacerbation Discharge - Discharge Plan Condition: Stable Disposition: HOME Prescriptions: predniSONE TAB* [Deltasone TAB*] 40 mg PO DAILY #8 tab Patient Education Materials: COPD (Chronic Obstructive Pulmonary Disease) (ED) Referrals: Tom Schrader MD [Primary Care Provider] - Additional Instructions: Please follow up with your primary care provider. PLEASE RETURN TO THE ED FOR ANY WORSENING SYMPTOMS. The documentation as recorded by the De kiran Angela accurately reflects the service I personally performed and the decisions made by Jude kaufman Walter, MD.
== END 2017-06-29 16:32 | disposition home or self-care (01) ==
LOC: ED 12:19
DX: J44.1 Chronic obstructive pulmonary disease with (acute) exacerbation (principal); R05 Cough; I25.119 Atherosclerotic heart disease of native coronary artery with unspecified angina pectoris; I10 Essential (primary) hypertension; Z86.718 Personal history of other venous thrombosis and embolism; Z79.01 Long term (current) use of anticoagulants; E78.00 Pure hypercholesterolemia, unspecified; K21.9 Gastro-esophageal reflux disease without esophagitis; F41.9 Anxiety disorder, unspecified; F32.9 Major depressive disorder, single episode, unspecified; Z90.49 Acquired absence of other specified parts of digestive tract; Z88.1 Allergy status to other antibiotic agents; Z88.0 Allergy status to penicillin; Z88.8 Allergy status to other drugs, medicaments and biological substances; F17.210 Nicotine dependence, cigarettes, uncomplicated
CPT/HCPCS: 36415; 71020; 80053; 81003; 81015; 82550; 84484; 85025; 86140; 87086; 87502; 93005; 99282

== ENCOUNTER 2017-06-29 23:23 | Inpatient (IN) | payer MEDICARE, MEDICAID ==
[2017-06-29] MEDS ORDERED: Albuterol/Ipratropium NEB.SOL* Albuterol 2.5 MG/Ipratropium 0.5 MG 3 ML ONE (23:31)
[2017-06-29] MEDS ORDERED: Albuterol/Ipratropium NEB.SOL* Albuterol 2.5 MG/Ipratropium 0.5 MG 3 ML INH ONE (23:34)
[2017-06-29] MEDS ORDERED: methylPREDNISolone 125 MG* 2 ML VIAL IV ONE (23:34)
[2017-06-29 23:51] LABS: FIO2 37
[2017-06-29 23:53] LABS: PCO2 Arterial 48 mmHg (35-45)
[2017-06-30 00:14] LABS: Hematocrit 28 % (35-47); Hemoglobin 9.1 g/dl (12.0-16.0); Mean Corpuscular HGB Conc 32 g/dl (31-36); Mean Corpuscular Hemoglobin 27 pg (27-31); Mean Corpuscular Volume 83 fL (80-97); Mean Platelet Volume 8 um3 (7.4-10.4); Red Blood Count 3.39 10^6/ul (4.0-5.4); Red Cell Distribution Width 19 % (10.5-15); White Blood Count 6.4 10^3/ul (3.5-10.8)
[2017-06-30 00:29] LABS: Albumin 3.5 g/dL (3.2-5.2); BUN/Creatinine Ratio 7.6 (8-20); Calcium 9.2 mg/dL (8.6-10.3); EGFR African American 80.4 (>60); EGFR Non-African American 62.5 (>60); Globulin 2.3 g/dL (2-4); Potassium 3.5 mmol/L (3.5-5.0); Total Bilirubin 0.4 mg/dL (0.2-1.0); Total Protein 5.8 g/dL (6.4-8.9)
[2017-06-30 00:31] LABS: Troponin I 0.01 ng/mL (<0.04)
[2017-06-30] MEDS ORDERED: Al Hydrox/Mg Hydrox/Simet LIQ* 30 ML UDC PO PRN (02:28)
[2017-06-30] MEDS ORDERED: Warfarin TAB(*) 1 MG PO ONE (02:31)
[2017-06-30] MEDS ORDERED: methylPREDNISolone 125 MG* 2 ML VIAL IV SCH (03:00)
[2017-06-30] MEDS ORDERED: Enoxaparin(*) 40 MG/0.4 ML SYR SUBCUT SCH (03:00)
--- NOTE | 2017-06-30 03:01 | ED ---
Shayna Laboy Emily, scribed for Piedad Cooneyuel on 06/29/17 at 2351 . Shortness of Breath - HPI Summary HPI Summary: This patient is a 61 year old F BIBA to [facility] with a chief complaint of dyspnea that began earlier today. The patient rates the pain 0/10 in severity. Symptoms aggravated by nothing. Symptoms alleviated by nothing. Pt is on 2lpm at home. Pt was at [facility] earlier today. Pt reports she cannot live alone anymore and requests social work consult. PMHx includes COPD and emphysema. - History of Current Complaint Chief Complaint: EDShortnessOfBreath Time Seen by Provider: 06/29/17 23:33 Hx Obtained From: Patient Onset/Duration: Sudden Onset, Lasting Hours, Still Present Current Severity: Moderate Aggrevating Factors: Nothing Alleviating Factors: Nothing - Allergy/Home Medications Allergies/Adverse Reactions: Allergies Allergy/AdvReac Type Severity Reaction Status Date / Time Penicillins [PCN] Allergy Mild Hives Verified 06/02/17 22:16 Chlorpromazine AdvReac Severe Diarrhea Verified 06/02/17 18:10 Bupropion [From Wellbutrin] AdvReac Intermediate Agitation Verified 06/02/17 22: 16 Cephalosporins AdvReac Intermediate Agitation Verified 06/02/17 22:16 Erythromycin AdvReac Intermediate Diarrhea Verified 06/02/17 18:10 Tobramycin AdvReac Intermediate Diarrhea Verified 06/02/17 18:10 PMH/Surg Hx/FS Hx/Imm Hx Previously Healthy: No Endocrine/Hematology History: Reports: Hx Anticoagulant Therapy, Other Endocrine /Hematological Disorders - L leg DVT Denies: Hx Diabetes, Hx Systemic Lupus Erythematosus, Hx Thyroid Disease Cardiovascular History: Reports: Hx Angina, Hx Coronary Artery Disease, Hx Deep Vein Thrombosis, Hx Hypercholesterolemia, Hx Hypertension, Hx Peripheral Vascular Disease, Other Cardiovascular Problems/Disorders - PERIPHERAL ARTERY DISEASE; CAD; DVT Denies: Hx Congestive Heart Failure, Hx Pacemaker/ICD Respiratory History: Reports: Hx Asthma, Hx Chronic Bronchitis, Hx Chronic Obstructive Pulmonary Disease (COPD) - 2L at home, Hx Pneumonia, Hx Seasonal Allergies, Other Respiratory Problems/Disorders - PNA Denies: Hx Cystic Fibrosis, Hx Lung Cancer, Hx Pleural Effusion, Hx Pulmonary Edema, Hx Pulmonary Embolism, Hx Sleep Apnea GI History: Reports: Hx Gall Bladder Disease - removed, Hx Gastroesophageal Reflux Disease, Hx Irritable Bowel, Other GI Disorders - hernia repair X 2 Denies: Hx Cirrhosis, Hx Crohn's Disease, Hx Diverticulosis History: Denies: Hx Dialysis, Hx Renal Disease Musculoskeletal History: Denies: Hx Arthritis, Hx Rheumatoid Arthritis, Hx Osteoporosis Sensory History: Reports: Hx Contacts or Glasses Denies: Hx Glaucoma, Hx Deafness, Hx Hearing Aid, Hx Hearing Problem Opthamlomology History: Reports: Hx Contacts or Glasses Denies: Hx Glaucoma Neurological History: Denies: Hx Headaches, Hx Seizures, Hx Transient Ischemic Attacks (TIA) Psychiatric History: Reports: Hx Anxiety, Hx Depression, Hx Inpatient Treatment , Hx Community Mental Health Tx, Hx Schizophrenia, Hx Bipolar Disorder, Hx Suicide Attempt Denies: Hx Eating Disorder, Hx Panic Disorder, Hx of Violent Episodes Against Others - Cancer History Hx Chemotherapy: No - Surgical History Surgery Procedure, Year, and Place: bilat thumb repairs, hernia repairs X 2, cholecystectomy, appendectomy Hx Anesthesia Reactions: No - Immunization History Date of Tetanus Vaccine: UTD Date of Influenza Vaccine: UTD Infectious Disease History: No Infectious Disease History: Denies: Hx Clostridium Difficile, Hx Hepatitis, Hx Human Immunodeficiency Virus (HIV), Hx of Known/Suspected MRSA, Hx Shingles, Hx Tuberculosis, Traveled Outside the [place] in Last 30 Days - Family History Known Family History: Positive: None, Cardiac Disease - [place], Other - schizophrenia, anxiety Negative: Hypertension, Diabetes Family History: Negative HTN/DM per EMR - Social History Occupation: Disabled Lives: Alone Alcohol Use: None Hx Substance Use: No Substance Use Type: Reports: None Hx Tobacco Use: Yes Smoking Status (MU): Heavy Every Day Tobacco Smoker Type: Cigarettes Amount Used/How Often: half a pack a day Have You Smoked in the Last Year: Yes Review of Systems Negative: Fever Positive: Shortness Of Breath All Other Systems Reviewed And Are Negative: Yes Physical Exam Triage Information Reviewed: Yes Vital Signs On Initial Exam: Initial Vitals Temp Pulse Resp BP Pulse Ox 97.3 F 104 24 104/39 88 06/29/17 23:29 06/29/17 23:29 06/29/17 23:29 06/29/17 23:29 06/29/17 23:29 Vital Signs Reviewed: Yes Appearance: Positive: Well-Appearing, No Pain Distress Skin: Positive: Warm, Skin Color Reflects Adequate Perfusion, Dry Head/Face: Positive: Normal Head/Face Inspection Eyes: Positive: EOMI, CRISTIAN ENT: Positive: Normal ENT inspection Neck: Positive: Supple, Nontender Respiratory/Lung Sounds: Positive: Breath Sounds Present, Wheezes - Bilateral Cardiovascular: Positive: RRR, Pulses are Symmetrical in both Upper and Lower Extremities Abdomen Description: Positive: Nontender, Soft Bowel Sounds: Positive: Present Musculoskeletal: Positive: Strength/ROM Intact, Other - LLE mild edema Neurological: Positive: Normal, Sensory/Motor Intact, Alert, Oriented to Person Place, Time Diagnostics - Vital Signs Vital Signs Temp Pulse Resp BP Pulse Ox 06/29/17 23:29 97.3 F 104 24 104/39 88 - Laboratory Result Diagrams: 06/30/17 23:53 06/30/17 23:53 Lab Statement: Any lab studies that have been ordered have been reviewed, and results considered in the medical decision making process. - Radiology CXR Xray Interpretation: No Acute Changes Radiology Interpretation Completed By: ED Physician - EKG 0026 Cardiac Rate: NL - 86 BPM EKG Rhythm: Sinus Rhythm EKG Interpretation: No acute changes Course/Dx - Course Assessment/Plan: This patient is a 61 year old F BIBA to [facility] with a chief complaint of dyspnea that began earlier today. The patient rates the pain 0/10 in severity. Symptoms aggravated by nothing. Symptoms alleviated by nothing. Pt is on 2lpm at home. Pt was at [facility] earlier today. Pt reports she cannot live alone anymore and requests social work consult. PMHx includes COPD and emphysema. Physical Exam Findings. Left leg mild edema. Bilateral wheezes. Medical Decision Making. An EKG taken at 0026 reveals normal sinus rhythm at 86 BPM with no acute changes. CXR read by ED physician reveals no acute changes. In the ED course the patient was given albuterol and prednisone. We discussed patient care with Dr. Sanchez (hospitalist) and they recommended pt be admitted to [facility]. The patient is agreeable with this plan. - Diagnoses Provider Diagnoses: COPD exacerbation - Physician Notifications Discussed Care of Patient With: Christiano Sanchez Time Discussed With Above Provider: 01:00 Instructed by Provider To: Other - Consult with Dr. Sanchez (hospitalist) at 0100. He agrees to admit pt. Discharge - Discharge Plan Condition: Stable Disposition: ADMITTED TO [facility] The documentation as recorded by the Shayna kiran Emily accurately reflects the service I personally performed and the decisions made by me, Juan Cooney.
[2017-06-30] MEDS: Azithromycin IV(*) 500 MG in NS 0.9% 250 ML* 250 ML IVPB SCH (03:55)
[2017-06-30] MEDS: methylPREDNISolone 125 MG* 2 ML VIAL IV SCH ×2 (08:00→16:55)
[2017-06-30] MEDS: guaiFENesin ER TAB 600 MG PO SCH ×2 (08:00→20:17)
[2017-06-30] MEDS: Montelukast Sodium TAB* 10 MG PO SCH (08:01)
[2017-06-30] MEDS: Isosorbide Mononitrate ER TAB* 30 MG PO SCH (08:01)
[2017-06-30] MEDS: Omeprazole CAP* 20 MG PO SCH (08:01)
[2017-06-30] MEDS: Lithium Carbonate TAB* 300 MG PO SCH ×2 (08:01→20:16)
[2017-06-30] MEDS: Gabapentin CAP(*) 100 MG PO SCH ×2 (08:01→20:17)
[2017-06-30] MEDS: Docusate CAP* 100 MG PO SCH ×2 (08:01→20:16)
[2017-06-30] MEDS: Metoprolol Tartrate TAB* 25 MG PO SCH ×2 (08:06→20:16)
[2017-06-30] MEDS ORDERED: Ondansetron INJ* 2 MG/ML VIAL IV PRN (08:28)
--- NOTE | 2017-06-30 08:38 | RAD ---
INDICATION: Shortness of breath and dizziness COMPARISON: Similar chest x-ray from the same date acquired at 1312 hours TECHNIQUE: Single AP portable view of the chest was obtained. FINDINGS: Image quality is compromised due to the relative inferiority of a portable chest x-ray. The heart and mediastinum exhibit normal size and contour. The lungs are grossly clear. There is no evidence of a large pleural effusion. Visualized bones are normal for the patient's age. IMPRESSION: No radiographic evidence for acute cardiopulmonary abnormality on this portable chest x-ray.
[2017-06-30] MEDS: Umeclidin 62.5 MDI(NF) 1 INH MDI INH SCH (09:34)
[2017-06-30] MEDS: Fluticasone/Vilanterol MDI(NF) 100/25 MDI INH SCH (09:34)
--- NOTE | 2017-06-30 10:23 | PN ---
Subjective Date of Service: 06/30/17 Interval History: This is a 61 yo female with a PMH of COPD with chronic O2, HTN, PVD, DVT, and schizophrenia. She was recently discharged from [facility]. Since that time she states she has not done well. She has difficulty getting out to get food. She states she can't take care of me. She was seen in the ED earlier in the day on 06/29 for cough and SOB and was discharged home with prescription for prednisone. She said she has no support and was unable to get her medications. She returned to the ED and was admitted for COPD exacerbation and request to be admitted to somewhere where she can get more help. She denies fever/chills overnight and denies CP. She endorses cough and SOB, particularly with exertion. Family History: Unchanged from Admission Social History: Unchanged from Admission Past Medical History: Unchanged from Admission Objective Active Medications: Al Hydrox/Mg Hydrox/Simethicone (Maalox Plus*) 30 ml PO DAILY PRN PRN Reason: INDIGESTION Albuterol (Ventolin 2.5 Mg/3 Ml Neb.Tania*) 2.5 mg INH Q2H PRN PRN Reason: SOB/WHEEZING Alprazolam (Xanax Tab*) 0.25 mg PO Q6H PRN PRN Reason: ANXIETY Atorvastatin Calcium (Lipitor*) 10 mg PO 1700 [facility] Docusate Sodium (Colace Cap*) 200 mg PO BID [facility] Last Admin: 06/30/17 08:01 Dose: 200 mg Fluticasone/Vilanterol (Breo Ellipta Mdi 100/25(Nf)) 1 puff INH DAILY [facility] Last Admin: 06/30/17 09:34 Dose: Not Given Gabapentin (Neurontin Cap(*)) 100 mg PO BID [facility] Last Admin: 06/30/17 08:01 Dose: 100 mg Guaifenesin (Mucinex*) 1,200 mg PO BID [facility] Last Admin: 06/30/17 08:00 Dose: 1,200 mg Azithromycin 500 mg/ Sodium (Chloride) 250 mls @ 250 mls/hr IVPB Q24H [facility] Last Admin: 06/30/17 03:55 Dose: 250 mls/hr Isosorbide Mononitrate (Imdur Er Tab*) 30 mg PO DAILY [facility] Last Admin: 06/30/17 08:01 Dose: 30 mg Bison Carbonate (Bison Carbonate Tab*) 300 mg PO BID [facility] Last Admin: 06/30/17 08:01 Dose: 300 mg Methylprednisolone Sodium Succinate (Solu-Medrol 125mg *) 60 mg IV Q8H [facility] Last Admin: 06/30/17 08:00 Dose: 60 mg Metoprolol Tartrate (Lopressor Tab*) 25 mg PO BID [facility] Last Admin: 06/30/17 08:06 Dose: 25 mg Mirtazapine (Remeron Tab*) 7.5 mg PO BEDTIME ELI Montelukast Sodium (Singulair Tab*) 10 mg PO DAILY [facility] Last Admin: 06/30/17 08:01 Dose: 10 mg Olanzapine (Zyprexa Tab*) 10 mg PO QPM [facility] Omeprazole (Prilosec Cap*) 20 mg PO DAILY [facility] PRN Reason: Protocol Last Admin: 06/30/17 08:01 Dose: 20 mg Ondansetron HCl (Zofran Inj*) 4 mg IV Q6H PRN PRN Reason: NAUSEA Umeclidinium [place] (Incruse Ellipta Mdi (Nf)) 1 inh INH DAILY [facility] Last Admin: 06/30/17 09:34 Dose: Not Given Warfarin Sodium (Coumadin Tab(*)) 3 mg PO DAILY@1700 [facility] PRN Reason: Protocol Vital Signs 06/30/17 06/30/17 06/30/17 02:30 02:45 03:15 Temperature 98 F 97.4 F Pulse Rate 92 91 89 Respiratory 28 34 20 Rate Blood Pressure 106/44 106/44 108/43 (mmHg) O2 Sat by Pulse 96 96 95 Oximetry 06/30/17 06/30/17 06/30/17 04:15 04:17 07:48 Temperature 97.4 F 97.7 F Pulse Rate 89 72 Respiratory 20 22 Rate Blood Pressure 108/43 128/53 (mmHg) O2 Sat by Pulse 95 95 95 Oximetry 06/30/17 06/30/17 08:01 10:01 Temperature Pulse Rate Respiratory 24 22 Rate Blood Pressure (mmHg) O2 Sat by Pulse Oximetry Oxygen Devices in Use Now: Nasal Cannula Appearance: Female patient, sitting on edge of bed, in NAD Eyes: No Scleral Icterus Ears/Nose/Mouth/Throat: Clear Oropharnyx, Mucous Membranes Moist Neck: NL Appearance and Movements; NL JVP Respiratory: Symmetrical Chest Expansion and Respiratory Effort, - - expiratory wheezing heard in middle and lower lobes Cardiovascular: NL Sounds; No Murmurs; No JVD, RRR Abdominal: NL Sounds; No Tenderness; No Distention Extremities: No Edema, No Clubbing, Cyanosis Skin: No Rash or Ulcers Neurological: Alert and Oriented x 3, NL Muscle Strength and Tone Lines/Tubes/Other Access: Clean, Dry and Intact Peripheral IV Nutrition: Taking PO's Result Diagrams: 06/30/17 23:53 06/30/17 23:53 Assess/Plan/Problems-Billing Assessment: This is a 61 yo female with a PMH of COPD with chronic O2, HTN, PVD, DVT, schizophrenia, and bipolar disorder who presented to the ED on 06/29/17 with concern for SOB and cough secondary to COPD exacerbation and now has concern for inability to care for self and need for placement. - Patient Problems (1) COPD (chronic obstructive pulmonary disease) Code(s): J44.9 - CHRONIC OBSTRUCTIVE PULMONARY DISEASE, UNSPECIFIED Comment: With acute exacerbation Continue azithromycin, methylprednisolone, tiotropium, nebulizers. History of multiple admissions for same issue Appreciate CM/SW assistance with resources in the community vs NH placement. (2) Hypertension Code(s): I10 - ESSENTIAL (PRIMARY) HYPERTENSION Comment: Normotensive Continue metoprolol. (3) GERD (gastroesophageal reflux disease) Code(s): K21.9 - GASTRO-ESOPHAGEAL REFLUX DISEASE WITHOUT ESOPHAGITIS Comment : Continue omeprazole. (4) HLD (hyperlipidemia) Code(s): E78.5 - HYPERLIPIDEMIA, UNSPECIFIED Comment: Continue atorvastatin. (5) Hx of deep venous thrombosis Code(s): Z86.718 - PERSONAL HISTORY OF OTHER VENOUS THROMBOSIS AND EMBOLISM Comment: INR 1.9 Continue to follow Continue warfarin (6) Schizoaffective disorder, bipolar type Code(s): F25.0 - SCHIZOAFFECTIVE DISORDER, BIPOLAR TYPE Comment: Continue olanzapine, lithium and mirtazapine. Check lithium level. (7) Tobacco abuse Code(s): Z72.0 - TOBACCO USE Comment: Patient states she has not smoked at home and continues to use her nicotine inhaler. (8) DVT prophylaxis Comment: Warfarin. (9) Full code status Code(s): Z78.9 - OTHER SPECIFIED HEALTH STATUS Status and Disposition: Inpatient admission. Wants [facility].
[2017-06-30] MEDS ORDERED: Spiriva Inhaler DEVICE* 1 EACH DEVICE SCH (12:00)
[2017-06-30] MEDS ORDERED: Mouth Piece, Nicotine* 1 EACH CARTRIDGE ONE (12:04)
[2017-06-30] MEDS: Nicotine Inhaler* 10 MG AMP INH PRN ×2 (12:06→16:59)
--- NOTE | 2017-06-30 12:53 | HP ---
CC: Dr. Schrader ADMISSION HISTORY AND PHYSICAL: DATE OF ADMISSION: 06/30/17 CHIEF COMPLAINT: Shortness of breath. HISTORY OF PRESENT ILLNESS: Ms. Camejo is a 61-year-old woman with a history of COPD and schizophrenia, who presented to the emergency department earlier in the day with shortness of breath and cough. The patient was felt to have COPD exacerbation, but not did require admission, was sent home with prednisone as well as instructions to continue her other inhalers. Apparently, the patient has no friends or family to help her flower buncher or picker her medications, so she went home and did not take any prednisone. She returned to ER this evening with further shortness of breath and cough. The patient refuses to be interviewed by me at this point and is cursing at me. According to discussions with the ER nurse and doctor as well as review of the chart, the patient reported that she wants to be admitted to the hospital and wants to live in a shelter. The patient was previously at [facility] and did do well there and was discharged to home. The patient was admitted 3 times to this hospital in May, but this is her first admission to the hospital in June. PAST MEDICAL HISTORY: Includes COPD, on home O2; hypertension; peripheral vascular disease; hyperlipidemia; schizophrenia versus bipolar disorder. She also has anxiety and depression listed in her past medical history. She has moderate mitral regurgitation, diastolic dysfunction, and history of DVT. PAST SURGICAL HISTORY: Includes right lower extremity stenting procedure, appendectomy, and hernia repair. MEDICATIONS: On admission are: 1. Alprazolam 0.25 mg p.o. q.6 hours p.r.n. anxiety. 2. Maalox as needed. 3. Albuterol nebulizer q.2 hours as needed for wheezing. 4. Atorvastatin 10 mg p.o. q.h.s. 5. Docusate 20 mg p.o. b.i.d. 6. Nexium 40 mg p.o. q. day. 7. Fluticasone/vilanterol 1 inhalation daily. 8. Gabapentin 100 mg p.o. b.i.d. 9. Isosorbide mononitrate 30 mg p.o. q. day. 10. Micco 300 mg p.o. b.i.d. 11. Metoprolol 25 mg p.o. b.i.d. 12. Mirtazapine 7.5 mg p.o. q.h.s. 13. Singulair 10 mg p.o. q. day. 14. Olanzapine 10 mg p.o. q.p.m. 15. Incruse inhaler 1 inhalation daily. 16. Warfarin 3 mg p.o. q.p.m. 17. Mucinex 1200 mg p.o. b.i.d. 18. Prednisone prescribed earlier today, not taken. ALLERGIES: PENICILLIN, CHLORPROMAZINE, BUPROPION, CEPHALOSPORIN, ERYTHROMYCIN, and TOBRAMYCIN. She has tolerated azithromycin in the past. FAMILY HISTORY: Notable for father of MD, mother of COPD. SOCIAL HISTORY: She is disabled. She lives in an elder apartment. She has 1 child. Her son's name is Maikel and he is her healthcare proxy. She smokes a half pack a day of cigarettes. Denies alcohol or drug use. REVIEW OF SYSTEMS: The patient refuses to be interviewed for review of systems. PHYSICAL EXAMINATION GENERAL: The patient refuses physical examination. She is in no respiratory distress. VITAL SIGNS: Temperature is 36.3, pulse was 90, respirations 30, blood pressure is 99/47, O2 sat is 100% on 2 L. DIAGNOSTIC STUDIES/LAB DATA: Sodium 138, potassium 3.5, chloride 105, bicarb 30, BUN 7, creatinine 0.92, glucose 90, calcium 9.2, albumin is 3.5. AST 10, ALT 12, bilirubin 0.4. Troponin 0.01. BNP is 47. White count is 6.4, hemoglobin 9.1, hematocrit 28%, and platelets 162. Blood gas shows a pH of 7.39 , PCO2 48, PO2 120. INR was 1.9, PTT was 34.5. Chest x-ray is negative other than increase in interstitial markings. ASSESSMENT AND PLAN: A 61-year-old woman with chronic obstructive pulmonary disease exacerbation, who has had a second ER visit today with shortness of breath. She will be admitted to hospital due to failure of outpatient treatment for chronic obstructive pulmonary disease. We will give her continued intravenous steroids and IV azithromycin to treat for some bronchitis. She will continue on her nebulizers and inhalers as usual. Smoking cessation should be discussed, but the patient was in no mood to talk to me about this. She can also have Social Work consult about her inability to procure medications at home and the desire to stay in an institution rather than at home. DVT prophylaxis will not be necessary. She will be on warfarin. Her INR is below the range of 2 to 3, so I have given her extra small dose of 4 mg warfarin and to continue at 3 mg daily after that. This should be monitored daily due to the addition of antibiotics and steroids. She can have compression devices as well because she is a high risk of recurrent DVT and PE. Code status is full. [id number]/[facility] #: [id number] MTDD
[2017-06-30] MEDS: Tiotropium CAP.INH* CAP.INH/18 MCG (USE ORDER SET !) INH SCH (14:05)
[2017-06-30] MEDS: Atorvastatin* 10 MG TAB PO SCH (16:54)
[2017-06-30] MEDS: OLANzapine TAB* 10 MG PO SCH (16:54)
[2017-06-30] MEDS: Warfarin TAB(*) 3 MG PO SCH (16:54)
[2017-06-30] MEDS: Albuterol 2.5 MG/3 ML NEB.SOL* (0.083%) INH PRN (17:19)
[2017-06-30] MEDS: Mirtazapine TAB* 15 MG PO SCH (20:17)
[2017-07-01] MEDS: methylPREDNISolone 125 MG* 2 ML VIAL IV SCH ×3 (01:52→17:11)
[2017-07-01] MEDS: Azithromycin IV(*) 500 MG in NS 0.9% 250 ML* 250 ML IVPB SCH (01:52)
[2017-07-01 06:57] LABS: Hematocrit 27 % (35-47); Hemoglobin 8.8 g/dl (12.0-16.0); Mean Corpuscular HGB Conc 33 g/dl (31-36); Mean Corpuscular Hemoglobin 27 pg (27-31); Mean Corpuscular Volume 82 fL (80-97); Mean Platelet Volume 8 um3 (7.4-10.4); Red Blood Count 3.27 10^6/ul (4.0-5.4); Red Cell Distribution Width 18 % (10.5-15); White Blood Count 5.7 10^3/ul (3.5-10.8)
[2017-07-01 07:23] LABS: Lithium 1.04 mmol/L (0.6-1.2); Total Iron Binding Capacity 300 mcg/dL (250-450); Transferrin 214 mg/dL (203-362)
[2017-07-01 07:42] LABS: Ferritin 14.9 ng/mL (11-307)
[2017-07-01] MEDS: Tiotropium CAP.INH* CAP.INH/18 MCG (USE ORDER SET !) INH SCH (08:04)
[2017-07-01] MEDS: Docusate CAP* 100 MG PO SCH ×2 (08:06→20:07)
[2017-07-01] MEDS: Gabapentin CAP(*) 100 MG PO SCH ×2 (08:06→20:07)
[2017-07-01] MEDS: guaiFENesin ER TAB 600 MG PO SCH ×2 (08:06→20:06)
[2017-07-01] MEDS: Isosorbide Mononitrate ER TAB* 30 MG PO SCH (08:07)
[2017-07-01] MEDS: Lithium Carbonate TAB* 300 MG PO SCH ×2 (08:07→20:08)
[2017-07-01] MEDS: Metoprolol Tartrate TAB* 25 MG PO SCH ×2 (08:07→20:06)
[2017-07-01] MEDS: Montelukast Sodium TAB* 10 MG PO SCH (08:07)
[2017-07-01] MEDS: Omeprazole CAP* 20 MG PO SCH (08:07)
[2017-07-01] MEDS: Nicotine Inhaler* 10 MG AMP INH PRN ×2 (08:14→14:33)
[2017-07-01 08:54] LABS: Iron < 15 ug/dL (50-212)
[2017-07-01] MEDS: Fluticasone/Vilanterol MDI(NF) 100/25 MDI INH SCH (08:58)
[2017-07-01] MEDS: Umeclidin 62.5 MDI(NF) 1 INH MDI INH SCH (08:58)
[2017-07-01] MEDS: Albuterol 2.5 MG/3 ML NEB.SOL* (0.083%) INH PRN ×2 (10:24→21:03)
[2017-07-01] MEDS: Atorvastatin* 10 MG TAB PO SCH (17:11)
[2017-07-01] MEDS: Warfarin TAB(*) 3 MG PO SCH (17:11)
[2017-07-01] MEDS: OLANzapine TAB* 10 MG PO SCH (17:11)
--- NOTE | 2017-07-01 19:22 | PN ---
Subjective Date of Service: 07/01/17 Interval History: Ms. Camejo was seen at her bedside. She reports she continues to feel wheezy and sob. increased sputum production. She feels a little better than the last two days. Denies fever or chills. No CP. Reports good appetite. She continues to smoke a pack a day; she denies withdrawal symptoms and reports the inhaler is working well for cravings. She is interested in quitting. Pt denies any blood or dark stools. She reports she "cannot take care of myself at home anymore and need to live in assisted care". Family History: Unchanged from Admission Social History: Unchanged from Admission Past Medical History: Unchanged from Admission Objective Active Medications: Al Hydrox/Mg Hydrox/Simethicone (Maalox Plus*) 30 ml PO DAILY PRN PRN Reason: INDIGESTION Albuterol (Ventolin 2.5 Mg/3 Ml Neb.Tania*) 2.5 mg INH Q2H PRN PRN Reason: SOB/WHEEZING Last Admin: 07/01/17 10:24 Dose: 2.5 mg Alprazolam (Xanax Tab*) 0.25 mg PO Q6H PRN PRN Reason: ANXIETY Atorvastatin Calcium (Lipitor*) 10 mg PO 1700 [facility] Last Admin: 07/01/17 17:11 Dose: 10 mg Device (Tiotropium Inhaler Device*) 1 each .SEE ORDER .USE w/ SPIRIVA CAPS [facility] Docusate Sodium (Colace Cap*) 200 mg PO BID [facility] Last Admin: 07/01/17 08:06 Dose: 200 mg Fluticasone/Vilanterol (Breo Ellipta Mdi 100/25(Nf)) 1 puff INH DAILY [facility] Last Admin: 07/01/17 08:58 Dose: Not Given Gabapentin (Neurontin Cap(*)) 100 mg PO BID [facility] Last Admin: 07/01/17 08:06 Dose: 100 mg Guaifenesin (Mucinex*) 1,200 mg PO BID [facility] Last Admin: 07/01/17 08:06 Dose: 1,200 mg Azithromycin 500 mg/ Sodium (Chloride) 250 mls @ 250 mls/hr IVPB Q24H [facility] Last Admin: 07/01/17 01:52 Dose: 250 mls/hr Isosorbide Mononitrate (Imdur Er Tab*) 30 mg PO DAILY [facility] Last Admin: 07/01/17 08:07 Dose: 30 mg Kim Carbonate (Kim Carbonate Tab*) 300 mg PO BID [facility] Last Admin: 07/01/17 08:07 Dose: 300 mg Methylprednisolone Sodium Succinate (Solu-Medrol 125mg *) 60 mg IV Q8H [facility] Last Admin: 07/01/17 17:11 Dose: 60 mg Metoprolol Tartrate (Lopressor Tab*) 25 mg PO BID [facility] Last Admin: 07/01/17 08:07 Dose: 25 mg Mirtazapine (Remeron Tab*) 7.5 mg PO BEDTIME [facility] Last Admin: 06/30/17 20:17 Dose: 7.5 mg Montelukast Sodium (Singulair Tab*) 10 mg PO DAILY [facility] Last Admin: 07/01/17 08:07 Dose: 10 mg Nicotine (Nicotine Inhaler*) 10 mg INH Q2H PRN PRN Reason: CRAVING Last Admin: 07/01/17 14:33 Dose: 10 mg Olanzapine (Zyprexa Tab*) 10 mg PO QPM [facility] Last Admin: 07/01/17 17:11 Dose: 10 mg Omeprazole (Prilosec Cap*) 20 mg PO DAILY [facility] PRN Reason: Protocol Last Admin: 07/01/17 08:07 Dose: 20 mg Ondansetron HCl (Zofran Inj*) 4 mg IV Q6H PRN PRN Reason: NAUSEA Tiotropium [place] (Spiriva Cap.Inh*) 1 cap INH DAILY [facility] Last Admin: 07/01/17 08:04 Dose: 1 cap Umeclidinium [place] (Incruse Ellipta Mdi (Nf)) 1 inh INH DAILY [facility] Last Admin: 07/01/17 08:58 Dose: Not Given Warfarin Sodium (Coumadin Tab(*)) 3 mg PO DAILY@1700 [facility] PRN Reason: Protocol Last Admin: 07/01/17 17:11 Dose: 3 mg Vital Signs 06/30/17 06/30/17 06/30/17 19:36 20:00 20:17 Temperature 98.0 F Pulse Rate 112 Respiratory 30 18 18 Rate Blood Pressure 159/60 (mmHg) O2 Sat by Pulse 91 Oximetry 06/30/17 06/30/17 06/30/17 22:17 23:24 23:52 Temperature 97.9 F Pulse Rate 75 Respiratory 18 21 Rate Blood Pressure 121/40 (mmHg) O2 Sat by Pulse 98 98 Oximetry 07/01/17 07/01/17 07/01/17 03:37 07:45 08:06 Temperature 97.6 F 98.4 F Pulse Rate 73 67 Respiratory 21 22 18 Rate Blood Pressure 116/38 128/42 (mmHg) O2 Sat by Pulse 100 99 Oximetry 07/01/17 07/01/17 07/01/17 08:17 10:06 10:26 Temperature Pulse Rate 82 Respiratory 18 18 22 Rate Blood Pressure (mmHg) O2 Sat by Pulse 96 Oximetry 07/01/17 07/01/17 07/01/17 12:54 15:30 15:38 Temperature 98.1 F 97.3 F Pulse Rate 70 80 Respiratory 20 20 Rate Blood Pressure 122/61 142/61 (mmHg) O2 Sat by Pulse 99 97 Oximetry Oxygen Devices in Use Now: Nasal Cannula Appearance: chronically ill appearing female A+O x3 in NAD, appears much older than her stated age Eyes: No Scleral Icterus, PERRLA Ears/Nose/Mouth/Throat: NL Teeth, Lips, Gums, Mucous Membranes Moist Neck: NL Appearance and Movements; NL JVP Respiratory: Symmetrical Chest Expansion and Respiratory Effort, - - exp wheezing bilaterally, no accessory muscle use, appears comfortable Cardiovascular: NL Sounds; No Murmurs; No JVD, RRR, No Edema Abdominal: NL Sounds; No Tenderness; No Distention, - - obese Extremities: No Edema, No Clubbing, Cyanosis Skin: No Rash or Ulcers, No Nodules or Sclerosis Neurological: Alert and Oriented x 3, NL Sensation, NL Muscle Strength and Tone Lines/Tubes/Other Access: Clean, Dry and Intact Peripheral IV Nutrition: Taking PO's Result Diagrams: 07/01/17 06:43 06/30/17 23:53 Assess/Plan/Problems-Billing Assessment: This is a 61 yo female with a PMH of COPD with chronic O2, HTN, PVD, DVT, schizophrenia, and bipolar disorder who presented to the ED on 06/29/17 with concern for SOB and cough secondary to COPD exacerbation and now has concern for inability to care for self and need for placement. - Patient Problems (1) COPD exacerbation Comment: - This is her 8th hospital visit and 5th admission in 2 months for the same complaints. - She continues to smoke heavily. - Switch azithromycin to PO - DC solumedrol and switch to prednisione 60 mg daily and taper - continue home inhaler and nebs prn (2) Anemia Comment: normocystic anemia - hx of anemia but is on the lower side of her trend. Will send stool for occult blood as she is on anticoagulations. Iron studies pending. (3) Adjustment disorder with mixed anxiety and depressed mood Comment: Continue home psychotropic meds. PRN alprazolam ordered. Kim level wnls (4) Nicotine dependence Comment: - Smoking cessation strongly encouraged, > 5 minutes spend in counseling. (5) Hypertension Comment: Normotensive Continue metoprolol. (6) History of angina Comment: stable. continue Imdur (7) Hx of deep venous thrombosis Comment: INR therapeutic Continue warfarin (8) DVT prophylaxis Comment: INR 2.28, check daily on abx Warfarin. (9) Full code status Status and Disposition: Inpatient admission. CM following, pt needs assisted living and agrees at this time.
[2017-07-01] MEDS: Mirtazapine TAB* 15 MG PO SCH (20:08)
[2017-07-02] MEDS: ALPRAZolam TAB* 0.25 MG PO PRN (01:47)
[2017-07-02] MEDS ORDERED: predniSONE TAB* 20 MG PO SCH (09:00)
[2017-07-02] MEDS: Isosorbide Mononitrate ER TAB* 30 MG PO SCH (09:49)
[2017-07-02] MEDS: Docusate CAP* 100 MG PO SCH ×2 (09:49→21:21)
[2017-07-02] MEDS: Azithromycin TAB* 250 MG PO SCH (09:49)
[2017-07-02] MEDS: Lithium Carbonate TAB* 300 MG PO SCH ×2 (09:50→21:21)
[2017-07-02] MEDS: Omeprazole CAP* 20 MG PO SCH (09:50)
[2017-07-02] MEDS: guaiFENesin ER TAB 600 MG PO SCH ×2 (09:50→21:21)
[2017-07-02] MEDS: Gabapentin CAP(*) 100 MG PO SCH ×2 (09:51→21:21)
[2017-07-02] MEDS: Montelukast Sodium TAB* 10 MG PO SCH (09:51)
[2017-07-02] MEDS: Metoprolol Tartrate TAB* 25 MG PO SCH ×2 (09:52→21:21)
[2017-07-02] MEDS: Fluticasone/Vilanterol MDI(NF) 100/25 MDI INH SCH (10:01)
[2017-07-02] MEDS: Umeclidin 62.5 MDI(NF) 1 INH MDI INH SCH (10:30)
[2017-07-02] MEDS: Tiotropium CAP.INH* CAP.INH/18 MCG (USE ORDER SET !) INH SCH (10:31)
[2017-07-02] MEDS: Albuterol 2.5 MG/3 ML NEB.SOL* (0.083%) INH PRN (10:31)
[2017-07-02] MEDS: Nicotine Inhaler* 10 MG AMP INH PRN ×2 (11:07→21:35)
--- NOTE | 2017-07-02 16:02 | PN ---
Subjective Date of Service: 07/02/17 Interval History: Patient seen and examined at bedside. Patient states her breathing is better but not back at baseline. Patient still has non-productive cough. States breathing treatments helping. Family History: Unchanged from Admission Social History: Unchanged from Admission Past Medical History: Unchanged from Admission Objective Active Medications: Al Hydrox/Mg Hydrox/Simethicone (Maalox Plus*) 30 ml PO DAILY PRN Albuterol (Ventolin 2.5 Mg/3 Ml Neb.Tania*) 2.5 mg INH Q2H PRN Alprazolam (Xanax Tab*) 0.25 mg PO Q6H PRN Atorvastatin Calcium (Lipitor*) 10 mg PO 1700 [facility] Azithromycin (Zithromax Tab*) 250 mg PO DAILY [facility] Device (Tiotropium Inhaler Device*) 1 each .SEE ORDER .USE w/ SPIRIVA CAPS [facility] Docusate Sodium (Colace Cap*) 200 mg PO BID [facility] Fluticasone/Vilanterol (Breo Ellipta Mdi 100/25(Nf)) 1 puff INH DAILY [facility] Gabapentin (Neurontin Cap(*)) 100 mg PO BID [facility] Guaifenesin (Mucinex*) 1,200 mg PO BID [facility] Isosorbide Mononitrate (Imdur Er Tab*) 30 mg PO DAILY [facility] [place] Carbonate ([place] Carbonate Tab*) 300 mg PO BID [facility] Metoprolol Tartrate (Lopressor Tab*) 25 mg PO BID [facility] Mirtazapine (Remeron Tab*) 7.5 mg PO BEDTIME [facility] Montelukast Sodium (Singulair Tab*) 10 mg PO DAILY [facility] Nicotine (Nicotine Inhaler*) 10 mg INH Q2H PRN Olanzapine (Zyprexa Tab*) 10 mg PO QPM [facility] Omeprazole (Prilosec Cap*) 20 mg PO DAILY [facility] Ondansetron HCl (Zofran Inj*) 4 mg IV Q6H PRN Prednisone (Deltasone Tab*) 60 mg PO DAILY [facility] Tiotropium [place] (Spiriva Cap.Inh*) 1 cap INH DAILY [facility] Umeclidinium [place] (Incruse Ellipta Mdi (Nf)) 1 inh INH DAILY [facility] Warfarin Sodium (Coumadin Tab(*)) 3 mg PO DAILY@1700 [facility] 07/02/17 07/02/17 07/02/17 03:47 08:00 09:46 Temperature 97.5 F Pulse Rate 96 Respiratory 18 20 Rate Blood Pressure 140/48 (mmHg) O2 Sat by Pulse 97 98 Oximetry Oxygen Devices in Use Now: Nasal Cannula Appearance: sitting up in bed, NAD Eyes: No Scleral Icterus, PERRLA Ears/Nose/Mouth/Throat: NL Teeth, Lips, Gums Neck: NL Appearance and Movements; NL JVP Respiratory: Symmetrical Chest Expansion and Respiratory Effort, - - poor air movement bilaterally; expiratory wheeze. Cardiovascular: NL Sounds; No Murmurs; No JVD, RRR, No Edema Abdominal: NL Sounds; No Tenderness; No Distention Extremities: No Edema Skin: No Rash or Ulcers Neurological: Alert and Oriented x 3, NL Muscle Strength and Tone Lines/Tubes/Other Access: Clean, Dry and Intact Peripheral IV Nutrition: Taking PO's Result Diagrams: 07/01/17 06:43 06/30/17 23:53 Assess/Plan/Problems-Billing This is a 61 yo female with a PMH of COPD with chronic O2, HTN, PVD, DVT, schizophrenia, and bipolar disorder who presented to the ED on 06/29/17 with concern for SOB and cough secondary to COPD exacerbation and now has concern for inability to care for self and need for placement. - Patient Problems (1) COPD exacerbation Comment: This is her 8th hospital visit and 5th admission in 2 mo.She continues to smoke heavily. Continue PO Zithromax. Continue prednisione 60 mg daily and taper. Continue home inhaler and nebs prn (2) Anemia Comment: Hx of anemia but is on the lower side of her trend. Low iron and iron saturation. Occult blood pending. (3) Adjustment disorder with mixed anxiety and depressed mood Comment: Continue home psychotropic meds. PRN alprazolam ordered. [place] level WNL. (4) Nicotine dependence Comment: Smoking cessation strongly encouraged, > 5 minutes spend in counseling. (5) Hypertension Comment: Normotensive. Continue metoprolol. (6) History of angina Comment: Stable. Continue Imdur (7) Hx of deep venous thrombosis Comment: INR therapeutic; Continue warfarin (8) DVT prophylaxis (9) Full code status Status and Disposition: Inpatient admission. CM following, pt needs assisted living and agrees at this time.
[2017-07-02] MEDS: Warfarin TAB(*) 3 MG PO SCH (17:21)
[2017-07-02] MEDS: Atorvastatin* 10 MG TAB PO SCH (17:21)
[2017-07-02] MEDS: OLANzapine TAB* 10 MG PO SCH (17:29)
[2017-07-02] MEDS: Mirtazapine TAB* 15 MG PO SCH (21:20)
[2017-07-03] MEDS: ALPRAZolam TAB* 0.25 MG PO PRN ×2 (02:58→20:08)
--- NOTE | 2017-07-03 08:36 | PN ---
Subjective Date of Service: 07/03/17 Interval History: Patient seen and examined at bedside. Patient did not sleep well for the first part of the night but is now resting quietly. Still reports some dyspnea on ambulation but improving. Continued breathing treatments. Family History: Unchanged from Admission Social History: Unchanged from Admission Past Medical History: Unchanged from Admission Objective Active Medications: Al Hydrox/Mg Hydrox/Simethicone (Maalox Plus*) 30 ml PO DAILY PRN Albuterol (Ventolin 2.5 Mg/3 Ml Neb.Tania*) 2.5 mg INH Q2H PRN Alprazolam (Xanax Tab*) 0.25 mg PO Q6H PRN Atorvastatin Calcium (Lipitor*) 10 mg PO 1700 ELI Azithromycin (Zithromax Tab*) 250 mg PO DAILY ELI Device (Tiotropium Inhaler Device*) 1 each .SEE ORDER .USE w/ SPIRIVA CAPS ELI Docusate Sodium (Colace Cap*) 200 mg PO BID ELI Fluticasone/Vilanterol (Breo Ellipta Mdi 100/25(Nf)) 1 puff INH DAILY ELI Gabapentin (Neurontin Cap(*)) 100 mg PO BID ELI Guaifenesin (Mucinex*) 1,200 mg PO BID ELI Isosorbide Mononitrate (Imdur Er Tab*) 30 mg PO DAILY ELI [place] Carbonate ([place] Carbonate Tab*) 300 mg PO BID ELI Metoprolol Tartrate (Lopressor Tab*) 25 mg PO BID ELI Mirtazapine (Remeron Tab*) 7.5 mg PO BEDTIME ELI Montelukast Sodium (Singulair Tab*) 10 mg PO DAILY ELI Nicotine (Nicotine Inhaler*) 10 mg INH Q2H PRN Olanzapine (Zyprexa Tab*) 10 mg PO QPM ELI Omeprazole (Prilosec Cap*) 20 mg PO DAILY ELI Ondansetron HCl (Zofran Inj*) 4 mg IV Q6H PRN Prednisone (Deltasone Tab*) 40 mg PO DAILY ELI Tiotropium [place] (Spiriva Cap.Inh*) 1 cap INH DAILY ELI Umeclidinium [place] (Incruse Ellipta Mdi (Nf)) 1 inh INH DAILY ELI Warfarin Sodium (Coumadin Tab(*)) 3 mg PO DAILY@1700 [facility] 07/03/17 07/03/17 04:50 04:58 Temperature 97.5 F Pulse Rate 65 Respiratory 16 18 Rate Blood Pressure 131/51 (mmHg) O2 Sat by Pulse 100 Oximetry Oxygen Devices in Use Now: Nasal Cannula Appearance: laying in bed, NAD Eyes: No Scleral Icterus, PERRLA Ears/Nose/Mouth/Throat: NL Teeth, Lips, Gums Neck: NL Appearance and Movements; NL JVP Respiratory: Symmetrical Chest Expansion and Respiratory Effort, - - expiratory wheeze, improved air movement Cardiovascular: NL Sounds; No Murmurs; No JVD Abdominal: NL Sounds; No Tenderness; No Distention Extremities: No Edema Skin: No Rash or Ulcers Neurological: Alert and Oriented x 3, NL Muscle Strength and Tone Lines/Tubes/Other Access: Clean, Dry and Intact Peripheral IV Result Diagrams: 07/01/17 06:43 06/30/17 23:53 Assess/Plan/Problems-Billing This is a 61 yo female with a PMH of COPD with chronic O2, HTN, PVD, DVT, schizophrenia, and bipolar disorder who presented to the ED on 06/29/17 with concern for SOB and cough secondary to COPD exacerbation and now has concern for inability to care for self and need for placement. - Patient Problems (1) COPD exacerbation Comment: This is her 8th hospital visit and 5th admission in 2 mo.She continues to smoke heavily. Continue PO Zithromax. Decrease Prednisone to 40mg. Continue home inhaler and nebs prn (2) Anemia Comment: Hx of anemia but is on the lower side of her trend. Low iron and iron saturation. Occult blood pending. Start iron supplements. (3) Adjustment disorder with mixed anxiety and depressed mood Comment: Continue home psychotropic meds. PRN alprazolam ordered. [place] level WNL. (4) Nicotine dependence Comment: Smoking cessation strongly encouraged, > 5 minutes spend in counseling. (5) Hypertension Comment: Normotensive. Continue metoprolol. (6) History of angina Comment: Stable. Continue Imdur (7) Hx of deep venous thrombosis Comment: INR therapeutic; Continue warfarin (8) DVT prophylaxis Comment: Recheck INR in AM (9) Full code status Status and Disposition: Inpatient admission. CM following, pt needs assisted living and agrees at this time. Stable for discharge at this time.
[2017-07-03] MEDS ORDERED: Magnesium CITRATE* 300 ML BTL PO ONE (09:00)
[2017-07-03] MEDS ORDERED: Polyethylene Glycol 3350* 17 GM PACKET PO SCH (09:00)
[2017-07-03] MEDS: Fluticasone/Vilanterol MDI(NF) 100/25 MDI INH SCH (09:16)
[2017-07-03] MEDS: Umeclidin 62.5 MDI(NF) 1 INH MDI INH SCH (09:17)
[2017-07-03] MEDS: Tiotropium CAP.INH* CAP.INH/18 MCG (USE ORDER SET !) INH SCH (09:18)
[2017-07-03] MEDS ORDERED: Polyethylene Glycol 3350* 17 GM PACKET PO PRN (09:19)
[2017-07-03] MEDS: Omeprazole CAP* 20 MG PO SCH (10:02)
[2017-07-03] MEDS: Gabapentin CAP(*) 100 MG PO SCH ×2 (10:02→20:09)
[2017-07-03] MEDS: Isosorbide Mononitrate ER TAB* 30 MG PO SCH (10:02)
[2017-07-03] MEDS: guaiFENesin ER TAB 600 MG PO SCH ×2 (10:03→20:09)
[2017-07-03] MEDS: Azithromycin TAB* 250 MG PO SCH (10:03)
[2017-07-03] MEDS: Metoprolol Tartrate TAB* 25 MG PO SCH ×2 (10:04→20:08)
[2017-07-03] MEDS: predniSONE TAB* 20 MG PO SCH (10:04)
[2017-07-03] MEDS: Ferrous Sulfate TAB* 325 MG PO SCH ×2 (10:05→20:09)
[2017-07-03] MEDS: Lithium Carbonate TAB* 300 MG PO SCH ×2 (10:05→20:09)
[2017-07-03] MEDS: Docusate CAP* 100 MG PO SCH ×2 (10:05→20:07)
[2017-07-03] MEDS: Montelukast Sodium TAB* 10 MG PO SCH (10:05)
[2017-07-03] MEDS: Mometasone/Formoter 100/5 MDI INH SCH ×2 (13:31→21:11)
[2017-07-03] MEDS: Warfarin TAB(*) 3 MG PO SCH (17:09)
[2017-07-03] MEDS: Atorvastatin* 10 MG TAB PO SCH (17:09)
[2017-07-03] MEDS: OLANzapine TAB* 10 MG PO SCH (17:10)
[2017-07-03] MEDS ORDERED: Acetaminophen TAB* 325 MG PO PRN (20:06)
[2017-07-03] MEDS ORDERED: CMCS: Melatonin (NF) 3 MG TAB PO PRN (20:06)
[2017-07-03] MEDS: Senna TAB PO SCH (20:08)
[2017-07-03] MEDS: Mirtazapine TAB* 15 MG PO SCH (20:09)
[2017-07-04] MEDS: Lithium Carbonate TAB* 300 MG PO SCH ×2 (08:57→21:26)
[2017-07-04] MEDS: Ferrous Sulfate TAB* 325 MG PO SCH ×2 (08:57→21:28)
[2017-07-04] MEDS: Docusate CAP* 100 MG PO SCH ×2 (08:57→21:28)
[2017-07-04] MEDS: Isosorbide Mononitrate ER TAB* 30 MG PO SCH (08:57)
[2017-07-04] MEDS: Montelukast Sodium TAB* 10 MG PO SCH (08:57)
[2017-07-04] MEDS: Gabapentin CAP(*) 100 MG PO SCH ×2 (08:57→21:27)
[2017-07-04] MEDS: Azithromycin TAB* 250 MG PO SCH (08:58)
[2017-07-04] MEDS: Metoprolol Tartrate TAB* 25 MG PO SCH ×2 (08:58→21:28)
[2017-07-04] MEDS: guaiFENesin ER TAB 600 MG PO SCH ×2 (08:58→21:28)
[2017-07-04] MEDS: predniSONE TAB* 20 MG PO SCH (08:58)
[2017-07-04] MEDS: Omeprazole CAP* 20 MG PO SCH (08:58)
[2017-07-04] MEDS: Mometasone/Formoter 100/5 MDI INH SCH ×2 (10:21→20:36)
[2017-07-04] MEDS: Tiotropium CAP.INH* CAP.INH/18 MCG (USE ORDER SET !) INH SCH (10:21)
--- NOTE | 2017-07-04 15:14 | PN ---
Subjective Date of Service: 07/04/17 Interval History: Patient seen and examined at bedside. Patient reports breathing improved. She states she can get to the bathroom without such sever shortness of breath. She is eating well and moving bowels without difficulty. She is very agreeable to go to [facility]. Family History: Unchanged from Admission Social History: Unchanged from Admission Past Medical History: Unchanged from Admission Objective Active Medications: Acetaminophen (Tylenol Tab*) 650 mg PO Q6H PRN Al Hydrox/Mg Hydrox/Simethicone (Maalox Plus*) 30 ml PO DAILY PRN Albuterol (Ventolin 2.5 Mg/3 Ml Neb.Tania*) 2.5 mg INH Q2H PRN Alprazolam (Xanax Tab*) 0.25 mg PO Q6H PRN Atorvastatin Calcium (Lipitor*) 10 mg PO 1700 ELI Azithromycin (Zithromax Tab*) 250 mg PO DAILY ELI Device (Tiotropium Inhaler Device*) 1 each .SEE ORDER .USE w/ SPIRIVA CAPS ELI Docusate Sodium (Colace Cap*) 200 mg PO BID ELI Ferrous Sulfate (Ferrous Sulfate Tab*) 325 mg PO BID ELI Gabapentin (Neurontin Cap(*)) 100 mg PO BID ELI Guaifenesin (Mucinex*) 1,200 mg PO BID ELI Isosorbide Mononitrate (Imdur Er Tab*) 30 mg PO DAILY ELI [place] Carbonate ([place] Carbonate Tab*) 300 mg PO BID ELI Melatonin (Melatonin (Nf)) 3 mg PO BEDTIME PRN Metoprolol Tartrate (Lopressor Tab*) 25 mg PO BID ELI Mirtazapine (Remeron Tab*) 7.5 mg PO BEDTIME ELI Mometasone Furoate/Formoterol Fumar (Dulera 100/5 Mdi*) 2 puff INH BID ELI Montelukast Sodium (Singulair Tab*) 10 mg PO DAILY ELI Nicotine (Nicotine Inhaler*) 10 mg INH Q2H PRN Olanzapine (Zyprexa Tab*) 10 mg PO QPM ELI Omeprazole (Prilosec Cap*) 20 mg PO DAILY ELI Ondansetron HCl (Zofran Inj*) 4 mg IV Q6H PRN Polyethylene Glycol/Electrolytes (Miralax*) 17 gm PO DAILY PRN Prednisone (Deltasone Tab*) 40 mg PO DAILY ELI Senna (Senokot Tab*) 2 tab PO BEDTIME [facility] Tiotropium [place] (Spiriva Cap.Inh*) 1 cap INH DAILY [facility] Warfarin Sodium (Coumadin Tab(*)) 3 mg PO DAILY@1700 [facility] 07/04/17 07/04/17 07/04/17 08:00 08:41 08:57 Temperature 97.4 F Pulse Rate 85 Respiratory 22 22 22 Rate Blood Pressure 143/54 (mmHg) O2 Sat by Pulse 99 99 Oximetry Oxygen Devices in Use Now: Nasal Cannula Appearance: sitting up in bed, NAD Eyes: No Scleral Icterus, PERRLA Ears/Nose/Mouth/Throat: NL Teeth, Lips, Gums Neck: NL Appearance and Movements; NL JVP Respiratory: Symmetrical Chest Expansion and Respiratory Effort, - - diminished at bases Cardiovascular: NL Sounds; No Murmurs; No JVD, RRR, No Edema Abdominal: NL Sounds; No Tenderness; No Distention Extremities: No Edema Skin: No Rash or Ulcers Neurological: Alert and Oriented x 3, NL Muscle Strength and Tone Lines/Tubes/Other Access: Clean, Dry and Intact Peripheral IV Nutrition: Taking PO's Result Diagrams: 07/01/17 06:43 06/30/17 23:53 Assess/Plan/Problems-Billing This is a 61 yo female with a PMH of COPD with chronic O2, HTN, PVD, DVT, schizophrenia, and bipolar disorder who presented to the ED on 06/29/17 with concern for SOB and cough secondary to COPD exacerbation and now has concern for inability to care for self and need for placement. - Patient Problems (1) COPD exacerbation Comment: This is her 8th hospital visit and 5th admission in 2 mo.She continues to smoke heavily. Continue PO Zithromax. Continue Prednisone at 40mg. Continue home inhaler and nebs prn (2) Anemia Comment: Hx of anemia but is on the lower side of her trend. Low iron and iron saturation. Occult blood pending. Continue iron supplements. (3) Adjustment disorder with mixed anxiety and depressed mood Comment: Continue home psychotropic meds. PRN alprazolam ordered. [place] level WNL. (4) Nicotine dependence Comment: Smoking cessation strongly encouraged, > 5 minutes spend in counseling. (5) Hypertension Comment: Normotensive. Continue metoprolol. (6) History of angina Comment: Stable. Continue Imdur (7) Hx of deep venous thrombosis Comment: INR therapeutic; Continue warfarin (8) DVT prophylaxis Comment: INR not drawn this AM; Will draw now. (9) Full code status Status and Disposition: Inpatient admission. Accepted at [facility]. Stable to be discharged there tomorrow 07/05/2017. See dictated discharge summary for detail.
[2017-07-04] MEDS: Atorvastatin* 10 MG TAB PO SCH (17:36)
[2017-07-04] MEDS: Warfarin TAB(*) 3 MG PO SCH (17:36)
[2017-07-04] MEDS: OLANzapine TAB* 10 MG PO SCH (17:57)
[2017-07-04] MEDS: Senna TAB PO SCH (21:27)
[2017-07-04] MEDS: Mirtazapine TAB* 15 MG PO SCH (21:27)
[2017-07-04] MEDS: ALPRAZolam TAB* 0.25 MG PO PRN (22:26)
[2017-07-05] MEDS: Nicotine Inhaler* 10 MG AMP INH PRN (05:26)
--- NOTE | 2017-07-05 06:03 | DS ---
CC: Dr. Schrader* DISCHARGE SUMMARY: DATE OF ADMISSION: 06/30/17 DATE OF EXPECTED DISCHARGE: 07/05/17 PRIMARY CARE PROVIDER: Dr. Schrader. ATTENDING PHYSICIAN: Luis Kilgore MD* (report dictated by Ramsey Laura NP). PRIMARY DIAGNOSES: 1. Acute on chronic hypoxic respiratory failure. 2. Chronic obstructive pulmonary disease exacerbation. SECONDARY DIAGNOSES: 1. Hypertension. 2. Peripheral vascular disease. 3. Hyperlipidemia. 4. Schizophrenia. 5. Anxiety. 6. Depression. 7. History of deep venous thrombosis and anticoagulation. 8. Mitral regurgitation. STUDIES WHILE IN HOSPITAL: Chest x-ray portable from 06/29/17; no radiographic evidence for acute cardiopulmonary abnormality on this portable chest x-ray. MEDICATIONS AT DISCHARGE: New medications: 1. Zithromax 250 mg oral daily for 2 additional days. 2. Iron 325 mg oral twice daily. 3. Prednisone 20 mg tablets 2 tablets for 3 days, 1.5 tablets for 3 days, 1 tablet for 3 days, half tablet for 3 days, and stop. The following medications are all medications the patient came in on: 1. Xanax 25 mg oral every 6 hours. 2. Maalox 30 mL oral daily as needed. 3. Albuterol nebs 2.5 inhaled every 2 hours as needed. 4. ProAir Respi[place] 2 puffs inhale every 4 hours as needed. 5. Lipitor 10 mg oral at 1700. 6. Colace 200 mg oral twice daily. 7. Nexium 40 mg oral daily. 8. Breo Ellipta one puff inhale daily. 9. Neurontin 100 mg oral twice daily. 10. Imdur ER 30 mg oral daily. 11. [place] 300 mg oral twice daily. 12. Lopressor 25 mg oral twice daily. 13. Mirtazapine 2.5 mg oral at bedtime. 14. Singulair 10 mg oral daily. 15. Zyprexa 10 mg oral daily in the evening. 16. Increase Ellipta 62.5 mcg inhaled everyday. 17. Coumadin 3 mg oral daily at 1700. 18. Mucinex 1200 mg oral twice daily. HISTORY OF PRESENT ILLNESS AND HOSPITAL COURSE: Ms. Camejo is a 61-year-old female with history of COPD and schizophrenia, who presented to the emergency room on 06/30/17 with complaint of shortness of breath and cough. The patient was discharged from the emergency room, but returned that evening with worsening shortness of breath and cough. The patient has had multiple admissions as well as multiple visits to the emergency room in the past 2 months. The patient was admitted to the medical floor and placed on Zithromax and steroids for her COPD exacerbation. All of her home nebulizers and inhalers were continued. Most of her issues arose from noncompliance with her medications upon discharge. In addition, there were multiple conversations with the patient regarding smoking cessation and the patient is agreeable to quit upon discharge. The patient continued her statin, metoprolol and Imdur. Blood pressure was controlled. Warfarin continued and she had a therapeutic INR during her hospitalization. She should have a followup INR in one week. Her lithium level was 1 and she will continue on her lithium regimen of 300 mg daily. Due to her issues of noncompliances and multiple visits, social work and discharge planners worked together to seek out placement for the patient. The patient had no acute needs for requiring a group home stay, hence a placement was sought out at assisted living and she has been accepted to go to the [facility] tomorrow, 07/05/17. DISCHARGE PLANNING: The patient is being discharged on a regular diet. The patient should take her medications as ordered. The patient should have a followup INR in 1 week next Sunday to ensure that her dosing is correct, subsequently after that she can have an INR every 2 weeks or twice a month. The patient should return to the hospital if she experiences any worsening shortness of breath. The patient should follow up with her primary care provider, Dr. Schrader. She has an appointment with him on 07/06 at 9:40 in the morning. I have reviewed all of the instructions with the patient. She is agreeable with her discharge tomorrow to [facility]. This is a summarized report of a complex medical history and hospital stay. For more details, please see the entire medical record. TIME SPENT: Time for this discharge was 60 minutes and 35 minutes were spent with the patient discussing the medications and followup instructions. CONDITION ON DISCHARGE: Stable. RAMSEY LAURA NP 07/07/20171999 [id number]/CPS #: [id number] MTDD
[2017-07-05 07:51] VITALS: BP 146/58
[2017-07-05] MEDS: Mometasone/Formoter 100/5 MDI INH SCH (07:51)
[2017-07-05] MEDS: Tiotropium CAP.INH* CAP.INH/18 MCG (USE ORDER SET !) INH SCH (07:52)
[2017-07-05] MEDS: Ferrous Sulfate TAB* 325 MG PO SCH (07:53)
[2017-07-05] MEDS: predniSONE TAB* 20 MG PO SCH (07:53)
[2017-07-05] MEDS: Docusate CAP* 100 MG PO SCH (07:54)
[2017-07-05] MEDS: Omeprazole CAP* 20 MG PO SCH (07:55)
[2017-07-05] MEDS: guaiFENesin ER TAB 600 MG PO SCH (07:55)
[2017-07-05] MEDS: Isosorbide Mononitrate ER TAB* 30 MG PO SCH (07:55)
[2017-07-05] MEDS: Gabapentin CAP(*) 100 MG PO SCH (07:56)
[2017-07-05] MEDS: Montelukast Sodium TAB* 10 MG PO SCH (07:57)
[2017-07-05] MEDS: Lithium Carbonate TAB* 300 MG PO SCH (07:57)
[2017-07-05] MEDS: Metoprolol Tartrate TAB* 25 MG PO SCH (07:57)
--- NOTE | 2017-07-05 10:34 | PN ---
Hospitalist Progress Note Please see dc summary from Eda Laura NP for details. Plan for discharge to [facility]. [facility] unable to accept patient until 07/06. She will leave the hospital today with her son who will then bring her to the [facility] tomorrow. The remainder of her dc plan remains unchanged.
== END 2017-07-05 11:30 | disposition home or self-care (01) | DRG 190 ==
LOC: ED 23:23 → MED 06-30 02:15
PROVIDERS: ADMIT Internal Medicine; ATTEND Internal Medicine
DX: J44.1 Chronic obstructive pulmonary disease with (acute) exacerbation (principal); J96.21 Acute and chronic respiratory failure with hypoxia; Z99.81 Dependence on supplemental oxygen; F25.0 Schizoaffective disorder, bipolar type; I10 Essential (primary) hypertension; I25.10 Atherosclerotic heart disease of native coronary artery without angina pectoris; I73.9 Peripheral vascular disease, unspecified; K21.9 Gastro-esophageal reflux disease without esophagitis; K58.9 Irritable bowel syndrome, unspecified; F41.9 Anxiety disorder, unspecified; F31.9 Bipolar disorder, unspecified; F17.210 Nicotine dependence, cigarettes, uncomplicated; I34.0 Nonrheumatic mitral (valve) insufficiency; D64.9 Anemia, unspecified; F43.23 Adjustment disorder with mixed anxiety and depressed mood; E78.5 Hyperlipidemia, unspecified; Z88.1 Allergy status to other antibiotic agents; Z88.0 Allergy status to penicillin; Z88.8 Allergy status to other drugs, medicaments and biological substances; Z86.718 Personal history of other venous thrombosis and embolism; Z90.49 Acquired absence of other specified parts of digestive tract; Z91.5 Personal history of self-harm; Z81.8 Family history of other mental and behavioral disorders; Z82.49 Family history of ischemic heart disease and other diseases of the circulatory system; Z79.01 Long term (current) use of anticoagulants; Z91.14 Patient's other noncompliance with medication regimen
CPT/HCPCS: 36415; 36600; 71010; 71020; 80053; 80178; 81003; 81015; 82550; 82728; 82803; 83540; 83550; 83880; 84484; 85025; 85610; 85730; 86140; 87086; 87502; 93005; 94640; 94760; 99406; A9270-GY; J0456; J2930; J7512

== ENCOUNTER → 2018-03-14 14:29 | Emergency (ER) | payer MEDICARE, MEDICAID ==
--- NOTE | 2018-03-14 16:21 | RAD ---
HISTORY: Left leg edema Comparison: Similar examination May 25, 2017 TECHNIQUE: Multiple transverse and longitudinal ultrasound images were obtained of the veins of the left lower extremity using grayscale, color Doppler, and spectral Doppler imaging with and without compression and with augmentation. FINDINGS: VEINS: The common femoral vein, deep femoral vein, femoral vein and popliteal vein are compressible throughout their course, with normal flow on color Doppler imaging and normal response to augmentation on spectral Doppler imaging. There is nonobstructing echogenic material in the left common femoral vein consistent with scar formation unchanged since the previous ultrasound examination. SOFT TISSUES: Grossly normal. No large popliteal fossa cyst was identified. 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
--- NOTE | 2018-03-14 17:19 | ED ---
Lower Extremity - HPI Summary HPI Summary: 62-year-old female presents with left leg swelling for the past 5 days. She has a history DVT many years ago. She is on Coumadin as she has stents. She is a smoker. She denies any chest pain or shortness of breath. She denies any recent travel or surgeries. She is unsure if she has a family history of blood clots. No injury. No numbness or tingling. No pain. States she's been eating a lot of salt recently so thinks the swelling is from such. - History of Current Complaint Chief Complaint: EDExtremityLower Stated Complaint: LT LEG SWELLING Time Seen by Provider: 03/14/18 17:05 Pain Intensity: 0 - Allergies/Home Medications Allergies/Adverse Reactions: Allergies Allergy/AdvReac Type Severity Reaction Status Date / Time bupropion [From Wellbutrin] Allergy Agitation Verified 03/14/18 14:46 Cephalosporins Allergy Agitation Verified 03/14/18 14:46 chlorproethazine Allergy Agitation Verified 03/14/18 14:46 erythromycin base Allergy Diarrhea Verified 03/14/18 14:46 Penicillins Allergy Hives Verified 03/14/18 14:46 tobramycin Allergy Diarrhea Verified 03/14/18 14:46 PMH/Surg Hx/FS Hx/Imm Hx Endocrine/Hematology History: Reports: Hx Anticoagulant Therapy, Other Endocrine /Hematological Disorders - L leg DVT Denies: Hx Diabetes, Hx Systemic Lupus Erythematosus, Hx Thyroid Disease Cardiovascular History: Reports: Hx Angina, Hx Coronary Artery Disease, Hx Deep Vein Thrombosis, Hx Hypercholesterolemia, Hx Hypertension, Hx Peripheral Vascular Disease, Other Cardiovascular Problems/Disorders - PERIPHERAL ARTERY DISEASE; CAD; DVT Denies: Hx Congestive Heart Failure, Hx Pacemaker/ICD Respiratory History: Reports: Hx Asthma, Hx Chronic Bronchitis, Hx Chronic Obstructive Pulmonary Disease (COPD) - 2L at home, Hx Pneumonia, Hx Seasonal Allergies, Other Respiratory Problems/Disorders - PNA Denies: Hx Cystic Fibrosis, Hx Lung Cancer, Hx Pleural Effusion, Hx Pulmonary Edema, Hx Pulmonary Embolism, Hx Sleep Apnea GI History: Reports: Hx Gall Bladder Disease - removed, Hx Gastroesophageal Reflux Disease, Hx Irritable Bowel, Other GI Disorders - hernia repair X 2 Denies: Hx Cirrhosis, Hx Crohn's Disease, Hx Diverticulosis History: Denies: Hx Dialysis, Hx Renal Disease Musculoskeletal History: Denies: Hx Arthritis, Hx Rheumatoid Arthritis, Hx Osteoporosis Sensory History: Reports: Hx Contacts or Glasses Denies: Hx Glaucoma, Hx Deafness, Hx Hearing Aid, Hx Hearing Problem Opthamlomology History: Reports: Hx Contacts or Glasses Denies: Hx Glaucoma Neurological History: Denies: Hx Headaches, Hx Seizures, Hx Transient Ischemic Attacks (TIA) Psychiatric History: Reports: Hx Anxiety, Hx Depression, Hx Inpatient Treatment , Hx Community Mental Health Tx, Hx Schizophrenia, Hx Bipolar Disorder, Hx Suicide Attempt Denies: Hx Eating Disorder, Hx Panic Disorder, Hx of Violent Episodes Against Others - Cancer History Hx Chemotherapy: No - Surgical History Surgery Procedure, Year, and Place: bilat thumb repairs, hernia repairs X 2, cholecystectomy, appendectomy Hx Anesthesia Reactions: No - Immunization History Date of Tetanus Vaccine: UTD Date of Influenza Vaccine: UTD Infectious Disease History: No Infectious Disease History: Denies: Hx Clostridium Difficile, Hx Hepatitis, Hx Human Immunodeficiency Virus (HIV), Hx of Known/Suspected MRSA, Hx Shingles, Hx Tuberculosis, Traveled Outside the [place] in Last 30 Days - Family History Known Family History: Positive: None, Cardiac Disease - [place], Other - schizophrenia, anxiety Negative: Hypertension, Diabetes Family History: Negative HTN/DM per EMR - Social History Alcohol Use: None Hx Substance Use: No Substance Use Type: Reports: None Hx Tobacco Use: Yes Smoking Status (MU): Heavy Every Day Tobacco Smoker Type: Cigarettes Amount Used/How Often: half a pack a day Have You Smoked in the Last Year: Yes Review of Systems Negative: Fever Negative: Chest Pain Negative: Shortness Of Breath Positive: Edema - left leg. Negative: Myalgia All Other Systems Reviewed And Are Negative: Yes Physical Exam Triage Information Reviewed: Yes Vital Signs On Initial Exam: Initial Vitals Temp Pulse Resp BP Pulse Ox 98.3 F 80 16 112/67 94 03/14/18 14:40 03/14/18 14:40 03/14/18 14:40 03/14/18 14:40 03/14/18 14:40 Vital Signs Reviewed: Yes Appearance: Positive: Well-Appearing Skin: Positive: Warm, Dry Head/Face: Positive: Normal Head/Face Inspection Eyes: Positive: Normal, Conjunctiva Clear ENT: Positive: Pharynx normal Respiratory/Lung Sounds: Positive: Clear to Auscultation, Breath Sounds Present Cardiovascular: Positive: Normal, RRR Musculoskeletal: Positive: Strength/ROM Intact - left leg, Edema Left - leg, Other - good pulses, capillary refill<2 secs, nontender left leg. Negative: Kia Sign Left Neurological: Positive: Normal Psychiatric: Positive: Normal Diagnostics - Vital Signs Vital Signs Temp Pulse Resp BP Pulse Ox 03/14/18 16:00 97.5 F 70 16 134/69 96 03/14/18 14:40 98.3 F 80 16 112/67 94 - Laboratory Lab Statement: Any lab studies that have been ordered have been reviewed, and results considered in the medical decision making process. - Radiology left leg Xray Interpretation: Positive (See Comments) - IMPRESSION: Stable chronic scarring in the left common femoral vein without sonographic evidence of deep vein thrombosis. Radiology Interpretation Completed By: Radiologist Lower Extremity Course/Dx - Course Course Of Treatment: 62-year-old female presents with left leg swelling for the past 5 days. She has a history DVT many years ago. She is on Coumadin as she has stents. She is a smoker. She denies any chest pain or shortness of breath. She denies any recent travel or surgeries. She is unsure if she has a family history of blood clots. No injury. No numbness or tingling. No pain. States she's been eating a lot of salt recently so thinks the swelling is from such. On exam mild edema noted left leg. Neurovascular intact. Ultrasound is negative for any DVT. Will have continue Coumadin and follow-up with primary. We'll have coumadin checked tomorrow. Told to elevate and use compression socks. Patient understands and agrees with plan. - Diagnoses Differential Diagnosis/HQI/PQRI: Positive: DVT, Sprain, Strain Provider Diagnoses: Leg edema, left Discharge - Sign-Out/Discharge Documenting (check all that apply): Discharge/Admit/Transfer - Discharge Plan Condition: Good Disposition: HOME Patient Education Materials: Leg Edema (ED) Referrals: Tom Schrader MD [Primary Care Provider] - Additional Instructions: Use compression socks Ice Elevate Take Tylenol for pain every 6 hours Follow up with primary within 5 days Return to ED if develop any new or worsening symptoms - Billing Disposition and Condition Condition: GOOD Disposition: Home
[2018-03-14 17:37] VITALS: BP 165/62
== END | disposition home or self-care (01) ==
LOC: ED 14:29
DX: R60.0 Localized edema (principal); F17.210 Nicotine dependence, cigarettes, uncomplicated; Z86.718 Personal history of other venous thrombosis and embolism; Z79.01 Long term (current) use of anticoagulants; Z99.81 Dependence on supplemental oxygen; Z88.0 Allergy status to penicillin; Z88.3 Allergy status to other anti-infective agents; Z88.8 Allergy status to other drugs, medicaments and biological substances
CPT/HCPCS: 99281

== ENCOUNTER 2018-06-06 12:24 | Inpatient (IN) | payer MEDICARE, MEDICAID ==
[2018-06-06] MEDS ORDERED: Aspirin 81 mg CHEW TAB* 81 MG TAB.CHEW PO ONE (12:36)
[2018-06-06] MEDS ORDERED: Albuterol/Ipratropium NEB.SOL* Albuterol 2.5 MG/Ipratropium 0.5 MG 3 ML INH ONE (12:36)
--- NOTE | 2018-06-06 13:14 | RAD ---
Indication: Shortness of breath. Single frontal view of the chest performed at 1259 hours was reviewed. Comparison is made with previous exam dated June 29, 2017. No mediastinal shift is noted. Heart is of normal size and configuration. Lung fl[place] appear clear. IMPRESSION: NO ACTIVE CARDIOPULMONARY DISEASE IS NOTED.
--- NOTE | 2018-06-06 13:18 | ED ---
Shortness of Breath - HPI Summary HPI Summary: This patient is a 62 year old F presenting to [facility] with a chief complaint of SOB for the past few days. She endorses upper sternal CP/tightness and wheezing. She notes the sx onset along with a cold. She denies cough. Pt denies PMHx DC. Pt uses 2L O2 at night. Pt smokes. Pt denies substance and EtOH use. She notes NTG and breathing tx from EMS alleviated sx. - History of Current Complaint Chief Complaint: EDChestPainROMI Time Seen by Provider: 06/06/18 12:30 Hx Obtained From: Patient Onset/Duration: Gradual Onset, Lasting Days, Still Present Timing: Constant Current Severity: Moderate Dyspnea At: Rest Aggrevating Factors: Nothing Alleviating Factors: EMS Tx, OTC Meds - NTG Associated Signs & Symptoms: Wheezing - Allergy/Home Medications Allergies/Adverse Reactions: Allergies Allergy/AdvReac Type Severity Reaction Status Date / Time bupropion [From Wellbutrin] Allergy Agitation Verified 03/14/18 14:46 Cephalosporins Allergy Agitation Verified 03/14/18 14:46 chlorproethazine Allergy Agitation Verified 03/14/18 14:46 erythromycin base Allergy Diarrhea Verified 03/14/18 14:46 Penicillins Allergy Hives Verified 03/14/18 14:46 tobramycin Allergy Diarrhea Verified 03/14/18 14:46 Home Medications: Home Medications ALPRAZolam TAB* [Xanax TAB*] 0.25 mg PO Q6H PRN 06/06/18 [History Confirmed ] Fluticasone/Vilanterol MDI(NF) [Breo Ellipta MDI 200/25(NF)] 1 puff INH DAILY [History] Warfarin TAB(*) [Coumadin TAB(*)] 4.5 mg PO DAILY@1700 06/06/18 [History Confirmed 06/06/18] PMH/Surg Hx/FS Hx/Imm Hx Endocrine/Hematology History: Reports: Hx Anticoagulant Therapy, Other Endocrine /Hematological Disorders - L leg DVT Denies: Hx Diabetes, Hx Systemic Lupus Erythematosus, Hx Thyroid Disease Cardiovascular History: Reports: Hx Angina, Hx Coronary Artery Disease, Hx Deep Vein Thrombosis, Hx Hypercholesterolemia, Hx Hypertension, Hx Peripheral Vascular Disease, Other Cardiovascular Problems/Disorders - PERIPHERAL ARTERY DISEASE; CAD; DVT Denies: Hx Congestive Heart Failure, Hx Pacemaker/ICD Respiratory History: Reports: Hx Asthma, Hx Chronic Bronchitis, Hx Chronic Obstructive Pulmonary Disease (COPD) - 2L at home, Hx Pneumonia, Hx Seasonal Allergies, Other Respiratory Problems/Disorders - PNA Denies: Hx Cystic Fibrosis, Hx Lung Cancer, Hx Pleural Effusion, Hx Pulmonary Edema, Hx Pulmonary Embolism, Hx Sleep Apnea GI History: Reports: Hx Gall Bladder Disease - removed, Hx Gastroesophageal Reflux Disease, Hx Irritable Bowel, Other GI Disorders - hernia repair X 2 Denies: Hx Cirrhosis, Hx Crohn's Disease, Hx Diverticulosis History: Denies: Hx Dialysis, Hx Renal Disease Musculoskeletal History: Denies: Hx Arthritis, Hx Rheumatoid Arthritis, Hx Osteoporosis Sensory History: Reports: Hx Contacts or Glasses Denies: Hx Glaucoma, Hx Deafness, Hx Hearing Aid, Hx Hearing Problem Opthamlomology History: Reports: Hx Contacts or Glasses Denies: Hx Glaucoma Neurological History: Denies: Hx Headaches, Hx Seizures, Hx Transient Ischemic Attacks (TIA) Psychiatric History: Reports: Hx Anxiety, Hx Depression, Hx Inpatient Treatment , Hx Community Mental Health Tx, Hx Schizophrenia, Hx Bipolar Disorder, Hx Suicide Attempt Denies: Hx Eating Disorder, Hx Panic Disorder, Hx of Violent Episodes Against Others - Cancer History Hx Chemotherapy: No - Surgical History Surgery Procedure, Year, and Place: bilat thumb repairs, hernia repairs X 2, cholecystectomy, appendectomy Hx Anesthesia Reactions: No - Immunization History Date of Tetanus Vaccine: UTD Date of Influenza Vaccine: UTD Immunizations Up to Date: Yes Infectious Disease History: No Infectious Disease History: Denies: Hx Clostridium Difficile, Hx Hepatitis, Hx Human Immunodeficiency Virus (HIV), Hx of Known/Suspected MRSA, Hx Shingles, Hx Tuberculosis, Traveled Outside the [place] in Last 30 Days - Family History Known Family History: Positive: None, Cardiac Disease - DC, Other - schizophrenia, anxiety Negative: Hypertension, Diabetes Family History: Negative HTN/DM per EMR - Social History Alcohol Use: None Hx Substance Use: No Substance Use Type: Reports: None Hx Tobacco Use: Yes Smoking Status (MU): Light Every Day Tobacco Smoker Type: Cigarettes Amount Used/How Often: half a pack a day Have You Smoked in the Last Year: Yes Review of Systems Negative: Fever Positive: Chest Pain Positive: Shortness Of Breath, Other - wheeze. Negative: Cough Positive: no symptoms reported All Other Systems Reviewed And Are Negative: Yes Physical Exam - Summary Physical Exam Summary: Appearance: Well appearing, no pain distress Skin: warm, dry, reflects adequate perfusion Head/face: normal Eyes: EOMI, CRISTIAN ENT: normal Neck: supple, non-tender Respiratory: breath sounds present, bilateral wheeze. Cardiovascular: RRR, pulses symmetrical Abdomen: non-tender, soft Bowel: present Musculoskeletal: normal, strength/ROM intact Neuro: normal, sensory motor intact, A&Ox3 Triage Information Reviewed: Yes Vital Signs On Initial Exam: Initial Vitals Temp Pulse Resp BP Pulse Ox 97.9 F 62 24 134/60 96 06/06/18 12:25 06/06/18 12:25 06/06/18 12:25 06/06/18 12:25 06/06/18 12:25 Vital Signs Reviewed: Yes Diagnostics - Vital Signs Vital Signs Temp Pulse Resp BP Pulse Ox 06/06/18 12:48 76 17 100 06/06/18 12:28 68 29 105/62 97 06/06/18 12:25 97.9 F 62 24 134/60 96 - Laboratory Result Diagrams: 06/06/18 14:00 06/06/18 14:00 Lab Statement: Any lab studies that have been ordered have been reviewed, and results considered in the medical decision making process. - Radiology CXR Xray Interpretation: No Acute Changes Radiology Interpretation Completed By: Radiologist - No active cardiopulmonary disease is noted. Dr. Cooney has reviewed this report. - EKG 1242 Cardiac Rate: NL - 63 EKG Rhythm: Sinus Rhythm ST Segment: Normal Ectopy: None EKG Interpretation: No acute changes. Course/Dx - Course Course Of Treatment: A 62-year-old F presents to the ED with a CC of SOB for a few days. (+) Upper sternal CP and tightness, wheeze. (-) cough. SOB associated with recent cold/sickness. Pt uses 2L O2 at home at night only. Sx alleviated by NTG and breathing tx. Pt smokes. A CXR was (-). An EKG reveals NSR at 63 BPM with no acute changes. In the ED course, pt was given ASA and albuterol breathing tx and pt still complaining of cp so will admit for mangement. - Diagnoses Differential Diagnosis/HQI/PQRI: Positive: Asthma, Bronchitis, Chest Wall Pain, COPD Exacerbation, Pneumonia, Unstable Angina Provider Diagnoses: Chest pain, rule out acute myocardial infarction, COPD exacerbation - Physician Notifications Discussed Care of Patient With: Gauri Waldrop Time Discussed With Above Provider: 15:15 Instructed by Provider To: Other - Accepts admission Discharge - Sign-Out/Discharge Documenting (check all that apply): Patient Departure - admit - Discharge Plan Condition: Fair Disposition: ADMITTED TO [facility] Referrals: Tom Schrader MD [Primary Care Provider] - - Billing Disposition and Condition Condition: FAIR Disposition: Admitted to [facility] - Attestation Statements Document Initiated by Scribe: Yes Documenting Scribe: Ric Hammond Provider For Whom Scribe is Documenting (Include Credential): Dr. Juan Cooney MD Scribe Attestation: Ric Laboy scribed for Dr. Juan Cooney MD on 06/06/18 at 1628. Scribe Documentation Reviewed: Yes Provider Attestation: The documentation as recorded by the Ric kiran accurately reflects the service I personally performed and the decisions made by , Dr. Juan Cooney MD
[2018-06-06 14:22] LABS: Hematocrit 39 % (35-47); Hemoglobin 12.8 g/dl (12.0-16.0); Mean Corpuscular HGB Conc 33 g/dl (31-36); Mean Corpuscular Hemoglobin 28 pg (27-31); Mean Corpuscular Volume 86 fL (80-97); Mean Platelet Volume 8.5 um3 (7.4-10.4); Platelet Count 131 10^3/ul (150-450); Red Cell Distribution Width 15 % (10.5-15); White Blood Count 9.1 10^3/ul (3.5-10.8)
[2018-06-06 14:39] LABS: EGFR Non-African American 68.2 (>60)
[2018-06-06 14:42] LABS: INR 1.79 (0.77-1.02)
[2018-06-06 14:49] LABS: ABS Basophils 0.1 10^3/ul (0-0.2); ABS Eosinophils 0.1 10^3/ul (0-0.6); ABS Lymphocytes 0.5 10^3/ul (1.0-4.8); ABS Monocytes 0.2 10^3/ul (0-0.8); ABS Neutrophils 8.2 10^3/ul (1.5-7.7); ABS Nucleated RBC 0 10^3/ul; Eosinophil % 1.4 % (0-6); Lymphocyte % 5.3 % (25-47); Nucleated Red Blood Cells % 0
[2018-06-06] MEDS ORDERED: Nitroglycerin 0.1 mg/Hr PATCH* (2.5 MG) TRANSDERM ONE (15:07)
[2018-06-06] MEDS ORDERED: Acetaminophen TAB* 325 MG PO PRN (15:57)
[2018-06-06] MEDS ORDERED: Ondansetron INJ* 2 MG/ML VIAL IV PRN (15:57)
[2018-06-06] MEDS ORDERED: Magnesium Hydroxide LIQ* 30 ML UDC PO PRN (15:57)
[2018-06-06] MEDS ORDERED: Al Hydrox/Mg Hydrox/Simet LIQ* 30 ML UDC PO PRN (15:57)
[2018-06-06] MEDS ORDERED: Albuterol 2.5 MG/3 ML NEB.SOL* (0.083%) INH PRN (15:57)
[2018-06-06] MEDS ORDERED: NS 0.9% 1000 ML* 1,000 ML IV SCH (16:00)
[2018-06-06] MEDS ORDERED: Warfarin TAB(*) 6 MG PO ONE (17:00)
[2018-06-06] MEDS: Atorvastatin* 10 MG TAB PO SCH (17:39)
[2018-06-06] MEDS: OLANzapine TAB* 10 MG PO SCH (17:39)
[2018-06-06] MEDS ORDERED: Mouth Piece, Nicotine* 1 EACH CARTRIDGE INH PRN (17:54)
[2018-06-06 17:58] LABS: Urine Appearance Clear; Urine Blood Negative (Negative); Urine Color Yellow; Urine Ketones Negative (Negative); Urine Protein Negative (Negative); Urine Specific Gravity 1.004 (1.010-1.030); Urine Urobilinogen Negative (Negative)
[2018-06-06] MEDS: methylPREDNISolone SOD 40 MG* 1 ML VIAL IV SCH (18:06)
[2018-06-06] MEDS: Nicotine Inhaler* 10 MG AMP INH PRN (18:06)
[2018-06-06 18:08] LABS: Urine Red Blood Cell Trace(0-2/hpf) (Absent); Urine White Blood Cell Trace(0-5/hpf) (Absent)
[2018-06-06] MEDS: Gabapentin CAP(*) 100 MG PO SCH (19:43)
[2018-06-06] MEDS: Lithium Carbonate TAB* 300 MG PO SCH (19:44)
[2018-06-06] MEDS: Mirtazapine TAB* 15 MG PO SCH (19:44)
[2018-06-06] MEDS: Metoprolol Tartrate TAB* 25 MG PO SCH (19:45)
[2018-06-06] MEDS: Albuterol/Ipratropium NEB.SOL* Albuterol 2.5 MG/Ipratropium 0.5 MG 3 ML INH SCH ×2 (19:59→23:41)
[2018-06-06] MEDS: Mometasone/Formoter 200/5 MDI INH SCH (20:00)
--- NOTE | 2018-06-06 22:13 | HP ---
CC: Tom Schrader MD * HISTORY AND PHYSICAL: DATE OF ADMISSION: 06/06/18 PRIMARY CARE PROVIDER: Tom Schrader MD ATTENDING PHYSICIAN: Gauri Waldrop DO * (dictated by Carol Ibarra NP). CHIEF COMPLAINT: 1. Shortness of breath. 2. Chest pain. HISTORY OF PRESENT ILLNESS: Ms. Camejo is a 62-year-old female with a past medical history of COPD, chronic hypoxic respiratory failure, CAD, hypertension , PVD, and hyperlipidemia, who presents to the emergency room today with complaints of shortness of breath and chest pain. She states that the shortness of breath started approximately 3 days ago. She has had a mild loose nonproductive cough. She does also have an associated wheeze. She feels as though during the last 3 days, the shortness of breath has been increasing. She first noticed the shortness of breath when she went to the grocery store with her son and felt short of breath once arriving and walking around the store. At around 2 a.m. this morning she awoke with shortness of breath. She took a Xanax which she said helped and she was able to fall back asleep, although she woke up later with continued shortness of breath leading her to seek care in the emergency room. She also complains of chest pain and tightness intermittently over the last month. She describes this as an ache and occasional sharp pain in her mid sternum. This is worse with coughing. The pain at its worst is around a 10/10. She was brought to the emergency room by EMS, who administered nitro x1 and a nebulizer. She felt as though these helped her symptoms somewhat. She does report recently spending time with her granddaughter who had an upper respiratory infection. While in the emergency room, the patient was placed on a nitro patch, at which point she felt her pain was decreased to a 7/10. She had a chest x-ray which showed no acute finding, although she is requiring 3 L nasal cannula to maintain an oxygen saturation in the low 90s when typically she only wears oxygen at night. Because of her continued shortness of breath and chest pain and hypoxia, the hospitalist service was asked to evaluate for admission. PAST MEDICAL HISTORY: 1. COPD. 2. Chronic hypoxic respiratory failure (on 2 L at night). 3. Hypertension. 4. PVD. 5. CAD. 6. Hyperlipidemia. 7. Schizophrenia. 8. Bipolar. 9. Anxiety. 10. Depression. 11. Left lower extremity DVT, on anticoagulation. 12. Mitral regurgitation. PAST SURGICAL HISTORY: 1. Appendectomy. 2. Hernia repair x2. 3. Right lower extremity stent. 4. Cholecystectomy. HOME MEDICATIONS: 1. Coumadin 4.5 mg p.o. daily. 2. Incruse Ellipta 62.5 mcg one inhalation daily. 3. Alprazolam 0.25 mg p.o. q.6 hours p.r.n. 4. Maalox 30 mL p.o. daily p.r.n. 5. Atorvastatin 10 mg p.o. daily. 6. Albuterol 2 puffs q.4 hours p.r.n. 7. Albuterol nebulizer 2.5 mg per 3 mL q.2 hours p.r.n. 8. Nexium 40 mg p.o. daily. 9. Olanzapine 10 mg p.o. daily. 10. Singulair 10 mg p.o. daily. 11. Mirtazapine 7.5 mg p.o. daily. 12. Metoprolol tartrate 25 mg p.o. b.i.d. 13. [place] 300 mg p.o. b.i.d. 14. Imdur 30 mg p.o. b.i.d. 15. Gabapentin 100 mg p.o. b.i.d. 16. Breo Ellipta MDI 200/25 one puff daily. ALLERGIES: BUPROPION, CEPHALOSPORINS, CHLORPROETHAZINE, ERYTHROMYCIN, PENICILLINS, and TOBRAMYCIN. FAMILY HISTORY: Mother in her 70s due to COPD. Father in his 70s due to IA. SOCIAL HISTORY: The patient reports smoking about a half pack per day. She has a 40-year smoking history, although has recently cut down. She reports rare alcohol use. Denies recreational drug use. She is disabled. Lives in an apartment with her son. The patient's son, Maikel Camejo, will be her surrogate decision maker in the event she is unable to make her own decisions. REVIEW OF SYSTEMS: An 11-point review of systems was performed and all the pertinent positive and negative findings are in the HPI. All the other systems are negative. PHYSICAL EXAMINATION GENERAL: Ms. Camejo is a well-developed, well-nourished, slightly overweight middle-aged white woman sitting up in bed, in no acute distress. She appears her stated age. VITAL SIGNS: Temp 98.3, heart rate 85, respiratory rate 30, oxygen saturation 95% on 3 L nasal cannula, blood pressure 149/60. HEENT: Visual florence are grossly intact. Pupils are equal, round, and reactive to light and accommodation. Extraocular movements intact. Oral mucous membranes slightly dry without lesions. Tonsils without erythema or exudate. Pharynx is clear. NECK: Full range of motion. Thyroid not palpable. Trachea midline. No lymphadenopathy. RESPIRATORY: Chest with symmetrical expansion. No chest wall deformities. Lungs with inspiratory and expiratory wheezes throughout. Lung sounds are more diminished on the right side. No rhonchi or rubs. CARDIOVASCULAR: Regular rate and rhythm. S1, S2 present. No murmurs, rubs, or gallops. No JVD. Pain is reproducible on exam with palpation of the mid sternal area. ABDOMEN: Soft, nontender to palpation. Bowel sounds normoactive throughout. No bruits appreciated. No hepatosplenomegaly. EXTREMITIES: Skin warm and smooth bilaterally. No edema. No clubbing or cyanosis. Pedal pulses 2+ bilaterally. MUSCULOSKELETAL: Full range of motion. No pain or deformities. NEURO: Awake, alert, and oriented x4. Cranial nerves II through XII grossly intact, moves all extremities. SKIN: Grossly intact without lesions. DIAGNOSTIC STUDIES/LABORATORY DATA: WBC 9.1, RBC 4.5, hemoglobin 12.8, hematocrit 39, and platelets 131,000. INR 1.79. Sodium 137, potassium 4.2, chloride 106, carbon dioxide 25, BUN 13, creatinine 0.85, glucose 110, lactic acid 0.5. First troponin 0.00, second troponin 0.00. BNP 18. Chest x-ray reads as no active cardiopulmonary disease. EKG personally reviewed shows normal sinus rhythm with a rate of 63. ASSESSMENT AND PLAN: Ms. Camejo is a 62-year-old female with a past medical history of chronic obstructive pulmonary disease, chronic hypoxic respiratory failure, hypertension, peripheral vascular disease, coronary artery disease, and hyperlipidemia, who presents to the emergency room today with complaints of shortness of breath and chest pain, and was found to have a chronic obstructive pulmonary disease exacerbation. The patient will be admitted inpatient for: 1. Chronic obstructive pulmonary disease exacerbation. The patient is currently requiring 3 L nasal cannula and at baseline she only requires 2 L at night. She will be maintained on oxygen as needed. She can have albuterol nebulizers every 4 hours. I will put her on Dulera as both of her home inhalers are non-formulary. I will order her Solu-Medrol every 8 hours. 2. Chest pain. The patient has a EMMANUEL score of 3. She does have a significant cardiac history and risk factors, although I think this chest pain may be due at least in part to her chronic obstructive pulmonary disease exacerbation, the work of breathing, and associated cough. We will repeat one more troponin and place her on telemetry. I will repeat an EKG in the morning. Due to her acute chronic obstructive pulmonary disease exacerbation, we will hold off on a stress test at this time, though she may benefit from a stress test as an outpatient once her acute exacerbation is treated. 3. Chronic hypoxic respiratory failure. Continue medications as above. Continue oxygen as needed. 4. Coronary artery disease. Continue Imdur and metoprolol. 5. Peripheral vascular disease. Supportive care. 6. Hyperlipidemia. Continue atorvastatin. 7. Schizophrenia, bipolar, anxiety, and depression. Continue lithium and olanzapine. Continue alprazolam as needed. 8. History of deep venous thrombosis. Continue Coumadin with a goal INR of 2 to 3. 9. Fluids, electrolytes, and nutrition. I will give her one bag of normal saline as she appeared somewhat dry on exam. She can have a heart-healthy diet. 10. Code status. The patient will be a full code. 11. DVT prophylaxis. According to the DVT risk assessment, the patient scores a 7 putting her at highest risk. I will continue her Coumadin with a goal INR of 2 to 3. She is subtherapeutic today, so I will give her 6 mg of Coumadin today. She can continue her 4.5 mg daily after that, pending her INR results in the morning. TIME SPENT: Approximately 60 minutes were spent on this admission, greater than half of that time spent with the patient obtaining my history, performing my physical exam, and reviewing the plan of care. The case has been reviewed with my attending, Dr. Waldrop, who is in agreement with the plan of care. CAROL IBARRA, ETHNOARCHAEOLOGIST [id number]/[facility] #: [id number] ANNITA
[2018-06-07] MEDS: methylPREDNISolone SOD 40 MG* 1 ML VIAL IV SCH ×3 (03:00→18:34)
[2018-06-07] MEDS: Albuterol/Ipratropium NEB.SOL* Albuterol 2.5 MG/Ipratropium 0.5 MG 3 ML INH SCH ×7 (03:03→23:03)
[2018-06-07] MEDS: Nicotine Inhaler* 10 MG AMP INH PRN ×3 (04:36→17:47)
[2018-06-07 06:20] LABS: ABS Basophils 0 10^3/ul (0-0.2); ABS Eosinophils 0 10^3/ul (0-0.6); ABS Lymphocytes 0.4 10^3/ul (1.0-4.8); ABS Monocytes 0.1 10^3/ul (0-0.8); ABS Neutrophils 3.1 10^3/ul (1.5-7.7); ABS Nucleated RBC 0 10^3/ul; Eosinophil % 0.2 % (0-6); Hematocrit 37 % (35-47); Hemoglobin 12.1 g/dl (12.0-16.0); Lymphocyte % 11.2 % (25-47); Mean Corpuscular HGB Conc 33 g/dl (31-36); Mean Corpuscular Hemoglobin 28 pg (27-31); Mean Corpuscular Volume 86 fL (80-97); Mean Platelet Volume 8.2 um3 (7.4-10.4); Nucleated Red Blood Cells % 0.1; Platelet Count 123 10^3/ul (150-450); Red Blood Count 4.28 10^6/ul (4.00-5.40); Red Cell Distribution Width 15 % (10.5-15); White Blood Count 3.6 10^3/ul (3.5-10.8)
[2018-06-07 06:25] LABS: INR 2.2 (0.77-1.02)
[2018-06-07 06:38] LABS: EGFR Non-African American 70.1 (>60)
[2018-06-07] MEDS: Mometasone/Formoter 200/5 MDI INH SCH ×2 (07:39→20:29)
[2018-06-07] MEDS: Metoprolol Tartrate TAB* 25 MG PO SCH ×2 (08:31→21:06)
[2018-06-07] MEDS: Lithium Carbonate TAB* 300 MG PO SCH ×2 (08:37→21:06)
[2018-06-07] MEDS: Gabapentin CAP(*) 100 MG PO SCH ×2 (08:37→21:05)
[2018-06-07] MEDS: Omeprazole CAP* 20 MG PO SCH (08:37)
[2018-06-07] MEDS: Montelukast Sodium TAB* 10 MG PO SCH (08:37)
[2018-06-07] MEDS: Isosorbide Mononitrate ER TAB* 30 MG PO SCH (08:37)
[2018-06-07] MEDS: ALPRAZolam TAB* 0.25 MG PO PRN ×2 (08:38→21:05)
--- NOTE | 2018-06-07 16:17 | PN ---
Subjective Date of Service: 06/07/18 Interval History: Breathing feels better but still on 3L oxygen Walking back and forth to bathroom No cough, no chest pain Objective Active Medications: Acetaminophen (Tylenol Tab*) 650 mg PO Q4H PRN PRN Reason: FEVER/PAIN Last Admin: 06/06/18 19:56 Dose: 650 mg Al Hydrox/Mg Hydrox/Simethicone (Maalox Plus*) 30 ml PO Q6H PRN PRN Reason: INDIGESTION Albuterol (Ventolin 2.5 Mg/3 Ml Neb.Tania*) 2.5 mg INH [id number] AWAKE PRN PRN Reason: sob/wheezing Albuterol/Ipratropium (Duoneb (Albuterol 2.5 Mg/Ipratropium 0.5 Mg)) 1 neb INH [id number] AWAKE [facility] Last Admin: 06/07/18 15:34 Dose: 1 neb Alprazolam (Xanax Tab*) 0.25 mg PO Q6H PRN PRN Reason: ANXIETY Last Admin: 06/07/18 08:38 Dose: 0.25 mg Atorvastatin Calcium (Lipitor*) 10 mg PO 1700 [facility] Last Admin: 06/06/18 17:39 Dose: 10 mg Device (Nicotine Mouth Piece*) 1 each INH .USE WITH NICOTROL PRN PRN Reason: CRAVING Last Admin: 06/06/18 18:06 Dose: 1 each Gabapentin (Neurontin Cap(*)) 100 mg PO BID [facility] Last Admin: 06/07/18 08:37 Dose: 100 mg Isosorbide Mononitrate (Imdur Er Tab*) 30 mg PO DAILY [facility] Last Admin: 06/07/18 08:37 Dose: 30 mg Playas Carbonate (Playas Carbonate Tab*) 300 mg PO BID [facility] Last Admin: 06/07/18 08:37 Dose: 300 mg Magnesium Hydroxide (Milk Of Magnesia Liq*) 30 ml PO Q4H PRN PRN Reason: CONSTIPATION Methylprednisolone Sodium Succinate (Solu-Medrol 40 Mg) 40 mg IV Q8H [facility] Last Admin: 06/07/18 10:01 Dose: 40 mg Metoprolol Tartrate (Lopressor Tab*) 25 mg PO BID [facility] Last Admin: 06/07/18 08:31 Dose: Not Given Mirtazapine (Remeron Tab*) 7.5 mg PO BEDTIME [facility] Last Admin: 06/06/18 19:44 Dose: 7.5 mg Mometasone Furoate/Formoterol Fumar (Dulera 200/5 Mdi*) 2 puff INH BID [facility] Last Admin: 06/07/18 07:39 Dose: Not Given Montelukast Sodium (Singulair Tab*) 10 mg PO DAILY [facility] Last Admin: 06/07/18 08:37 Dose: 10 mg Nicotine (Nicotine Inhaler*) 10 mg INH Q2H PRN PRN Reason: CRAVING Last Admin: 06/07/18 08:37 Dose: 10 mg Olanzapine (Zyprexa Tab*) 10 mg PO QPM [facility] Last Admin: 06/06/18 17:39 Dose: 10 mg Omeprazole (Prilosec Cap*) 20 mg PO DAILY@0730 [facility]; Protocol Last Admin: 06/07/18 08:37 Dose: 20 mg Ondansetron HCl (Zofran Inj*) 4 mg IV Q4H PRN PRN Reason: NAUSEA/VOMITING Warfarin Sodium (Coumadin Tab(*)) 4.5 mg PO DAILY@1700 [facility]; Protocol Vital Signs - 8 hr 06/07/18 06/07/18 06/07/18 08:28 08:37 08:38 Temperature 98.4 F Pulse Rate 84 Respiratory 20 24 24 Rate Blood Pressure 135/45 (mmHg) O2 Sat by Pulse 94 Oximetry 06/07/18 06/07/18 06/07/18 10:46 11:27 12:37 Temperature 98.3 F Pulse Rate 82 80 Respiratory 20 18 20 Rate Blood Pressure 133/53 (mmHg) O2 Sat by Pulse 93 95 Oximetry 06/07/18 06/07/18 15:33 15:35 Temperature 98.1 F Pulse Rate 82 80 Respiratory 22 16 Rate Blood Pressure 126/48 (mmHg) O2 Sat by Pulse 94 92 Oximetry Oxygen Devices in Use Now: Nasal Cannula - 3L Appearance: older than stated age, NAD Eyes: No Scleral Icterus, PERRLA Ears/Nose/Mouth/Throat: NL Teeth, Lips, Gums, Clear Oropharnyx Neck: NL Appearance and Movements; NL JVP, Trachea Midline Respiratory: Symmetrical Chest Expansion and Respiratory Effort, - - scattered rales, scatter rhonchi Cardiovascular: RRR, - - early peaking 2/6 DAYNA Abdominal: NL Sounds; No Tenderness; No Distention, No Hepatosplenomegaly Lymphatic: No Cervical Adenopathy Extremities: No Edema Skin: No Rash or Ulcers Neurological: Alert and Oriented x 3 Result Diagrams: 06/07/18 06:03 06/07/18 06:03 Microbiology and Other Data: Microbiology 06/06/18 14:00 Aerobic Blood Culture - Preliminary Blood Venous No Growth Day 1 Anaerobic Blood Culture - Preliminary No Growth Day 1 06/06/18 14:09 Aerobic Blood Culture - Preliminary Blood Venous No Growth Day 1 Anaerobic Blood Culture - Preliminary No Growth Day 1 Assess/Plan/Problems-Billing Assessment: 62 yo F h/o COPD with chronic resp failure on 2L at night, CAD, HTN p/w SOB and chest found with acute hypoxic resp failure - Patient Problems (1) COPD exacerbation Comment: methylprednisolone 40IV TID duthomasbs dulera (2) Tobacco abuse Comment: nicotine inhaler. (3) Hypertension Comment: metoprolol, imdur, (4) Schizoaffective disorder, bipolar type Comment: olanzapine, lithium and mirtazapine. (5) DVT prophylaxis Comment: on coumadin for h/o DVT
[2018-06-07] MEDS: Warfarin TAB(*) 3 MG PO SCH (17:22)
[2018-06-07] MEDS: Atorvastatin* 10 MG TAB PO SCH (17:22)
[2018-06-07] MEDS: OLANzapine TAB* 10 MG PO SCH (18:37)
[2018-06-07] MEDS: Mirtazapine TAB* 15 MG PO SCH (21:06)
[2018-06-08] MEDS: methylPREDNISolone SOD 40 MG* 1 ML VIAL IV SCH ×3 (02:28→16:56)
[2018-06-08] MEDS: Albuterol/Ipratropium NEB.SOL* Albuterol 2.5 MG/Ipratropium 0.5 MG 3 ML INH SCH ×5 (03:02→20:36)
[2018-06-08] MEDS ORDERED: NS 0.9% 1000 ML* 500 ML IV ONE (04:15)
[2018-06-08] MEDS: Mometasone/Formoter 200/5 MDI INH SCH ×2 (07:08→20:36)
[2018-06-08] MEDS: Lithium Carbonate TAB* 300 MG PO SCH ×2 (08:25→20:08)
[2018-06-08] MEDS: Montelukast Sodium TAB* 10 MG PO SCH (08:25)
[2018-06-08] MEDS: Omeprazole CAP* 20 MG PO SCH (08:25)
[2018-06-08] MEDS: Isosorbide Mononitrate ER TAB* 30 MG PO SCH (08:25)
[2018-06-08] MEDS: Nicotine Inhaler* 10 MG AMP INH PRN ×3 (08:25→21:14)
[2018-06-08] MEDS: Gabapentin CAP(*) 100 MG PO SCH ×2 (08:25→20:08)
[2018-06-08] MEDS: Metoprolol Tartrate TAB* 25 MG PO SCH ×4 (08:25→20:13)
--- NOTE | 2018-06-08 15:32 | PN ---
Subjective Date of Service: 06/08/18 Interval History: Anxious to go home Ambulating with oxygen Audible wheezing Denies SOB Declined AM meds because it was too early Objective Active Medications: Acetaminophen (Tylenol Tab*) 650 mg PO Q4H PRN PRN Reason: FEVER/PAIN Last Admin: 06/06/18 19:56 Dose: 650 mg Al Hydrox/Mg Hydrox/Simethicone (Maalox Plus*) 30 ml PO Q6H PRN PRN Reason: INDIGESTION Albuterol (Ventolin 2.5 Mg/3 Ml Neb.Tania*) 2.5 mg INH [id number] AWAKE PRN PRN Reason: sob/wheezing Albuterol/Ipratropium (Duoneb (Albuterol 2.5 Mg/Ipratropium 0.5 Mg)) 1 neb INH [id number] AWAKE [facility] Last Admin: 06/08/18 14:50 Dose: Not Given Alprazolam (Xanax Tab*) 0.25 mg PO Q6H PRN PRN Reason: ANXIETY Last Admin: 06/07/18 21:05 Dose: 0.25 mg Atorvastatin Calcium (Lipitor*) 10 mg PO 1700 [facility] Last Admin: 06/07/18 17:22 Dose: 10 mg Device (Nicotine Mouth Piece*) 1 each INH .USE WITH NICOTROL PRN PRN Reason: CRAVING Last Admin: 06/06/18 18:06 Dose: 1 each Gabapentin (Neurontin Cap(*)) 100 mg PO BID [facility] Last Admin: 06/08/18 08:25 Dose: 100 mg Isosorbide Mononitrate (Imdur Er Tab*) 30 mg PO DAILY [facility] Last Admin: 06/08/18 08:25 Dose: 30 mg Corwith Carbonate (Corwith Carbonate Tab*) 300 mg PO BID [facility] Last Admin: 06/08/18 08:25 Dose: 300 mg Magnesium Hydroxide (Milk Of Magnesia Liq*) 30 ml PO Q4H PRN PRN Reason: CONSTIPATION Methylprednisolone Sodium Succinate (Solu-Medrol 40 Mg) 40 mg IV Q8H [facility] Last Admin: 06/08/18 08:29 Dose: 40 mg Metoprolol Tartrate (Lopressor Tab*) 25 mg PO BID [facility] Last Admin: 06/08/18 08:27 Dose: Not Given Mirtazapine (Remeron Tab*) 7.5 mg PO BEDTIME [facility] Last Admin: 06/07/18 21:06 Dose: 7.5 mg Mometasone Furoate/Formoterol Fumar (Dulera 200/5 Mdi*) 2 puff INH BID [facility] Last Admin: 06/08/18 07:08 Dose: Not Given Montelukast Sodium (Singulair Tab*) 10 mg PO DAILY [facility] Last Admin: 06/08/18 08:25 Dose: 10 mg Nicotine (Nicotine Inhaler*) 10 mg INH Q2H PRN PRN Reason: CRAVING Last Admin: 06/08/18 08:25 Dose: 10 mg Olanzapine (Zyprexa Tab*) 10 mg PO QPM [facility] Last Admin: 06/07/18 18:37 Dose: 10 mg Omeprazole (Prilosec Cap*) 20 mg PO DAILY@0730 [facility]; Protocol Last Admin: 06/08/18 08:25 Dose: 20 mg Ondansetron HCl (Zofran Inj*) 4 mg IV Q4H PRN PRN Reason: NAUSEA/VOMITING Warfarin Sodium (Coumadin Tab(*)) 4.5 mg PO DAILY@1700 [facility]; Protocol Last Admin: 06/07/18 17:22 Dose: 4.5 mg Vital Signs - 8 hr 06/08/18 06/08/18 06/08/18 07:46 08:00 08:25 Temperature 97.8 F Pulse Rate 42 Respiratory 18 16 16 Rate Blood Pressure 132/33 (mmHg) O2 Sat by Pulse 98 Oximetry 06/08/18 06/08/18 11:00 11:02 Temperature Pulse Rate 70 Respiratory 16 Rate Blood Pressure (mmHg) O2 Sat by Pulse 95 95 Oximetry Oxygen Devices in Use Now: Nasal Cannula - 1L Appearance: NAD, tachypneic when talking Eyes: No Scleral Icterus, PERRLA Ears/Nose/Mouth/Throat: Clear Oropharnyx, Mucous Membranes Moist Neck: NL Appearance and Movements; NL JVP, Trachea Midline Respiratory: Symmetrical Chest Expansion and Respiratory Effort, - - diffuse rhonchi, prolonged expiratory phase Cardiovascular: RRR Abdominal: NL Sounds; No Tenderness; No Distention, No Hepatosplenomegaly Lymphatic: No Cervical Adenopathy Extremities: No Edema Skin: No Rash or Ulcers Neurological: Alert and Oriented x 3 Result Diagrams: 06/07/18 06:03 06/07/18 06:03 Microbiology and Other Data: Microbiology 06/06/18 14:00 Aerobic Blood Culture - Preliminary Blood Venous No Growth Day 1 Anaerobic Blood Culture - Preliminary No Growth Day 1 06/06/18 14:09 Aerobic Blood Culture - Preliminary Blood Venous No Growth Day 1 Anaerobic Blood Culture - Preliminary No Growth Day 1 Assess/Plan/Problems-Billing Assessment: 62 yo F h/o COPD with chronic resp failure on 2L at night, CAD, HTN p/w SOB and chest found with acute hypoxic resp failure - Patient Problems (1) COPD exacerbation Comment: methylprednisolone 40IV TID duonebs dulera titrate oxygen Continued inpatient based on oxygen needs and lung exam (2) Tobacco abuse Comment: nicotine inhaler. declines patch (3) Hypertension Comment: metoprolol, imdur, (4) Schizoaffective disorder, bipolar type Comment: olanzapine, lithium and mirtazapine. (5) DVT prophylaxis Comment: on coumadin for h/o DVT
[2018-06-08] MEDS: Warfarin TAB(*) 3 MG PO SCH (16:57)
[2018-06-08] MEDS: Atorvastatin* 10 MG TAB PO SCH (16:57)
[2018-06-08] MEDS: OLANzapine TAB* 10 MG PO SCH (16:58)
[2018-06-08] MEDS: Mirtazapine TAB* 15 MG PO SCH (20:09)
[2018-06-08 20:10] VITALS: BP 128/44
[2018-06-08] MEDS: ALPRAZolam TAB* 0.25 MG PO PRN (22:09)
--- NOTE | 2018-06-08 22:14 | PN ---
Progress Note - Progress Note Date of Service: 06/08/18 Note: Ms Camejo decided ~2100 she wished to sign out AMA. I discussed this with her , she accepted the risks and benefits. In my opinion, she currently has the cognitive ability to make this decision. She requested a Medicaid cab voucher and was explained by nursing that Medicaid does not authorize travel vouchers when signing out AMA. This was confirmed through the [employer]. She then stated she would walk home and I informed her that that is not an acceptably safe modality, that she would need to call a family member to come get her. After exhausting her resources and not being able to find a ride, she attempted to leave by walking out the front door of the hospital. Security had been summoned and were required to physically stop her. She then expressed in an impressively profane rant that she would just stay. One of her main complaints is being awakened by vitals and telemetry checks. As such, I will order her telemetry D/C'd and for her not to be disturbed during sleep. A safety monitor will also be ordered as she is considered an elopement risk.
[2018-06-09] MEDS: methylPREDNISolone SOD 40 MG* 1 ML VIAL IV SCH (02:00)
[2018-06-09] MEDS: Omeprazole CAP* 20 MG PO SCH (07:08)
[2018-06-09] MEDS: Mometasone/Formoter 200/5 MDI INH SCH (08:32)
--- NOTE | 2018-06-09 22:44 | DS ---
CC: Dr. Schrader * DISCHARGE SUMMARY: DATE OF ADMISSION: 06/06/18 DATE OF DISCHARGE: 06/09/18 PRIMARY CARE PROVIDER: Dr. Schrader. PRIMARY DIAGNOSIS: Chronic obstructive pulmonary disease exacerbation. SECONDARY DIAGNOSES: Include: 1. [id number] hypoxic respiratory failure. 2. Hypertension. 3. Peripheral vascular disease. 4. Coronary artery disease. 5. Hyperlipidemia. 6. Schizophrenia. MEDICATIONS ON DISCHARGE: 1. Prednisone 50 mg daily for 6 additional days. Please note addition of steroids to her home regimen. 2. Breo Ellipta 200/25 one puff daily. 3. Coumadin 4.5 mg in the evening. 4. Incruse Ellipta 62.5 mcg inhaled daily. 5. Xanax 0.25 mg every 6 hours as needed. 6. Maalox Plus 30 mL daily as needed. 7. Atorvastatin 10 mg in the evening. 8. Albuterol 2 puffs every 4 hours as needed. 9. Nebulized albuterol as needed. 10. Esomeprazole 40 mg daily. 11. Olanzapine 10 mg in the evening. 12. Montelukast 10 mg daily. 13. Mirtazapine 7.5 mg at bedtime. 14. Metoprolol tartrate 25 mg twice daily. 15. Gowrie carbonate 300 mg twice daily. 16. Isosorbide mononitrate 30 mg daily. 17. Gabapentin 100 mg twice daily. PERTINENT IMAGING STUDIES: Chest x-ray, impression: No active cardiopulmonary disease is noted. PERTINENT LABORATORY DATA: White blood cell count 3.6 on 06/07/18. INR on is 2.2. Troponin I of 0.00 on 3 consecutive checks and BNP was 18. Microbiology is negative for blood and urine. HISTORY OF PRESENT ILLNESS AND HOSPITAL COURSE: This is a 62-year-old female, active tobacco user, past medical history of COPD with chronic respiratory failure, uses 2 L of oxygen only at night, presented to the hospital with increased shortness of breath associated with audible wheezing. She was diagnosed with a COPD exacerbation, was started on IV methylprednisolone with improvement in her oxygenation as well as work of breathing. The patient had improved. Her oxygen need at rest resolved. She maintained 94% to 95% at rest ; however, still required oxygen with ambulation, desatted to 78% on room air with ambulating 1 lap around for self. She will require 3 L of oxygen at all times, be evaluated after discharge. The patient has a concentrator at home for oxygen. She will be discharged with oxygen tank. Of note, prior to discharge, the patient did try to AMA from the hospital overnight. Her attempt was to walk down [address] in the middle of the night. She was deemed not to understand the risks of this action and was held against her will over the night. When she was evaluated on the day of discharge, she was of sound state of mind to make decisions. Her breathing status had improved. She still did have end expiratory wheezes as well as scattered rhonchi; however, greatly improved since yesterday and tremendously improved over the last 2 days. She will be continued on steroids 50 mg prednisone for 6 additional days. It is Sunday. I will be unable to make a followup for Dr. Schrader. The patient indicates that she will have no difficulty calling tomorrow to schedule a followup to evaluate for her prolonged use of steroids if needed. There are no complications in this patient's hospital stay. Tobacco cessation counseling was undergone. The patient is precontemplative. FOLLOWUP: At followup, please; 1. Evaluate respiratory status, prolonged steroid course if needed. 2. Pathology Supervisor tobacco cessation. 3. No other specific labs or vitals that need followup. Reasons to return to the hospital including, but not limited to recurrent or worsening symptoms including shortness of breath, wheezing, worsening cough, fevers, chills, night sweats, chest pain, inability to obtain or tolerate medication, bleeding from any source were discussed with the patient. She acknowledged understanding. TIME SPENT: Greater than 60 minutes were spent on discharging this patient; greater than half was spent [id number] with the patient. [id number]/[facility] #: [id number] ANNITA
== END 2018-06-09 09:03 | disposition home or self-care (01) | DRG 189 ==
LOC: ED 12:24 → MEDTELE 15:57
PROVIDERS: ADMIT Hospitalist; ATTEND Internal Medicine
DX: J96.21 Acute and chronic respiratory failure with hypoxia (principal); J44.1 Chronic obstructive pulmonary disease with (acute) exacerbation; F20.9 Schizophrenia, unspecified; F17.210 Nicotine dependence, cigarettes, uncomplicated; Z99.81 Dependence on supplemental oxygen; I25.10 Atherosclerotic heart disease of native coronary artery without angina pectoris; I11.9 Hypertensive heart disease without heart failure; I73.9 Peripheral vascular disease, unspecified; E78.5 Hyperlipidemia, unspecified; F41.8 Other specified anxiety disorders; F25.0 Schizoaffective disorder, bipolar type; I34.0 Nonrheumatic mitral (valve) insufficiency; Z86.718 Personal history of other venous thrombosis and embolism; Z79.01 Long term (current) use of anticoagulants; Z79.899 Other long term (current) drug therapy; Z88.1 Allergy status to other antibiotic agents; Z88.0 Allergy status to penicillin; Z88.8 Allergy status to other drugs, medicaments and biological substances; Z82.5 Family history of asthma and other chronic lower respiratory diseases; Z82.49 Family history of ischemic heart disease and other diseases of the circulatory system
CPT/HCPCS: 36415; 71045; 80048; 80053; 81003; 81015; 83605; 83880; 84484; 85025; 85610; 85730; 87040; 87086; 90686; 93005; 94640; 99284; 99406; A9270-GY; J2920

== ENCOUNTER 2018-06-10 09:41 | Emergency (ER) | payer MEDICARE, MEDICAID ==
--- NOTE | 2018-06-10 10:40 | ED ---
Throat Pain/Nasal Congestion - HPI Summary HPI Summary: The pt is a 62 y/o female BIBA to [facility] c/o of L sided facial swelling and pain since 09:00 today when she blew out a pus pocket in her L nose. The pain rated 10/10 in severity is described as throbbing. She notes sinus congestion, drainage, L ear pain, neck pain, and difficulty eating and sleeping secondary to the pain. 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 - History of Current Complaint Chief Complaint: EDGeneral Time Seen by Provider: 06/10/18 10:25 Hx Obtained From: Patient Onset/Duration: Sudden Onset - 09:00, Still Present Severity: Severe Associated Signs And Symptoms: Positive: Sinus Discomfort, Nasal Discharge - Allergies/Home Medications Allergies/Adverse Reactions: Allergies Allergy/AdvReac Type Severity Reaction Status Date / Time bupropion [From Wellbutrin] Allergy Agitation Verified 03/14/18 14:46 Cephalosporins Allergy Agitation Verified 03/14/18 14:46 chlorproethazine Allergy Agitation Verified 03/14/18 14:46 erythromycin base Allergy Diarrhea Verified 03/14/18 14:46 Penicillins Allergy Hives Verified 03/14/18 14:46 tobramycin Allergy Diarrhea Verified 03/14/18 14:46 Home Medications: Home Medications Albuterol 2.5MG/3ML (0.083%)* [Ventolin 2.5 MG/3 ML NEB.GINETTE*] 2.5 mg INH Q2H PRN 06/10/18 [History Confirmed 06/10/18] PMH/Surg Hx/FS Hx/Imm Hx Previously Healthy: No Endocrine/Hematology History: Reports: Hx Anticoagulant Therapy, Other Endocrine /Hematological Disorders - L leg DVT Denies: Hx Diabetes, Hx Systemic Lupus Erythematosus, Hx Thyroid Disease Cardiovascular History: Reports: Hx Angina, Hx Coronary Artery Disease, Hx Deep Vein Thrombosis, Hx Hypercholesterolemia, Hx Hypertension, Hx Peripheral Vascular Disease, Other Cardiovascular Problems/Disorders - PERIPHERAL ARTERY DISEASE; CAD; DVT Denies: Hx Congestive Heart Failure, Hx Pacemaker/ICD Respiratory History: Reports: Hx Asthma, Hx Chronic Bronchitis, Hx Chronic Obstructive Pulmonary Disease (COPD) - 2L at home, Hx Pneumonia, Hx Seasonal Allergies, Other Respiratory Problems/Disorders - PNA Denies: Hx Cystic Fibrosis, Hx Lung Cancer, Hx Pleural Effusion, Hx Pulmonary Edema, Hx Pulmonary Embolism, Hx Sleep Apnea GI History: Reports: Hx Gall Bladder Disease - removed, Hx Gastroesophageal Reflux Disease, Hx Irritable Bowel, Other GI Disorders - hernia repair X 2 Denies: Hx Cirrhosis, Hx Crohn's Disease, Hx Diverticulosis History: Denies: Hx Dialysis, Hx Renal Disease Musculoskeletal History: Denies: Hx Arthritis, Hx Rheumatoid Arthritis, Hx Osteoporosis Sensory History: Denies: Hx Contacts or Glasses, Hx Glaucoma, Hx Deafness, Hx Hearing Aid, Hx Hearing Problem Opthamlomology History: Denies: Hx Contacts or Glasses, Hx Glaucoma Neurological History: Denies: Hx Headaches, Hx Seizures, Hx Transient Ischemic Attacks (TIA) Psychiatric History: Reports: Hx Anxiety, Hx Depression, Hx Inpatient Treatment , Hx Community Mental Health Tx, Hx Schizophrenia, Hx Bipolar Disorder, Hx Suicide Attempt Denies: Hx Eating Disorder, Hx Panic Disorder, Hx of Violent Episodes Against Others - Cancer History Hx Chemotherapy: No - Surgical History Surgery Procedure, Year, and Place: bilat thumb repairs, hernia repairs X 2, cholecystectomy, appendectomy Hx Anesthesia Reactions: No - Immunization History Date of Tetanus Vaccine: UTD Date of Influenza Vaccine: UTD Immunizations Up to Date: Yes Infectious Disease History: No Infectious Disease History: Denies: Hx Clostridium Difficile, Hx Hepatitis, Hx Human Immunodeficiency Virus (HIV), Hx of Known/Suspected MRSA, Hx Shingles, Hx Tuberculosis, Traveled Outside the [place] in Last 30 Days - Family History Known Family History: Positive: Cardiac Disease - [place], Other - schizophrenia, anxiety Negative: Hypertension, Diabetes Family History: Negative HTN/DM per EMR - Social History Occupation: Disabled Alcohol Use: Occasionally Hx Substance Use: No Substance Use Type: Reports: None Hx Tobacco Use: Yes Smoking Status (MU): Light Every Day Tobacco Smoker Type: Cigarettes Amount Used/How Often: half a pack a day Have You Smoked in the Last Year: Yes Review of Systems Constitutional: Other - Positive: L sided facial swelling, Difficulty sleeping secondary to pain Positive: Ear Ache - L ear , Nasal Discharge, Other - Positive: Sinus congestion , Neck pain Gastrointestinal: Other - Positive: Difficulty eating secondary to pain All Other Systems Reviewed And Are Negative: Yes Physical Exam - Summary Physical Exam Summary: Appearance: The patient is well-nourished in no acute distress and in no acute pain. Skin: The skin is warm and dry and skin color reflects adequate perfusion. HEENT: The head is normocephalic and atraumatic. The pupils are equal and reactive. The conjunctivae are clear and without drainage. Tender and indurated in the L infraorbital area. Swelling in the inferior L tarsus. Nares are patent and without drainage. Mouth reveals moist mucous membranes and the throat is without erythema and exudate. The external ears are intact. The ear canals are patent and without drainage. Bulging L TM Neck: The neck is supple with full range of motion and non-tender. There are no carotid bruits. There is no neck vein distension. Respiratory: Chest is non-tender. Lungs are clear to auscultation and breath sounds are symmetrical and equal. Cardiovascular: Heart is regular rate and rhythm. There is no murmur or rub auscultated. There is no peripheral edema and pulses are symmetrical and equal. Abdomen: The abdomen is soft and non-tender. There are normal bowel sounds heard in all four quadrants and there is no organomegaly palpated. Musculoskeletal: There is no back tenderness noted. Extremities are non-tender with full range of motion. There is good capillary refill. There is no peripheral edema or calf tenderness elicited. Neurological: Patient is alert and oriented to person, place and time. The patient has symmetrical motor strength in all four extremities. Cranial nerves are grossly intact. Deep tendon reflexes are symmetrical and equal in all four extremities. Triage Information Reviewed: Yes Vital Signs On Initial Exam: Initial Vitals Temp Pulse Resp BP Pulse Ox 98.4 F 69 20 128/70 97 06/10/18 09:53 10 09:53 10 09:53 06/10/18 09:53 06/10/18 09:53 Vital Signs Reviewed: Yes Diagnostics - Vital Signs Vital Signs Temp Pulse Resp BP Pulse Ox 06/10/18 09:53 98.4 F 69 20 128/70 97 - Laboratory Lab Statement: Any lab studies that have been ordered have been reviewed, and results considered in the medical decision making process. EENT Course/Dx - Course Course Of Treatment: Ms. Camejo presents complaining of having had URI symptoms and head congestion for several days. Yesterday she blew her nose and the left side of her face swelled up. Today it is gotten much more painful. She's had no fever or chills that she is aware of. On exam she has swelling of her lower lid and also some swelling of her infraorbital area that is more indurated and tender. She has congestion and her left TM is bulging. I'm going to treat her with antihistamines and decongestants but also antibiotic given that she may be getting infected in the subcutaneous area on the left face. - Diagnoses Provider Diagnoses: Sinusitis Discharge - Sign-Out/Discharge Documenting (check all that apply): Patient Departure - DC - Discharge Plan Condition: Stable Disposition: HOME Prescriptions: Cetirizine HCl/Pseudoephedrine [Zyrtec-D Tablet] 1 each PO BID #20 tab.er.12h DOXYcycline CAP(*) [DOXYcycline 100MG CAP(*)] 100 mg PO BID #14 cap Patient Education Materials: Sinusitis (ED) Referrals: Tom Schrader MD [Primary Care Provider] - 3 Days Additional Instructions: Return to ED for any new or worsening symptoms - Billing Disposition and Condition Condition: STABLE Disposition: Home - Attestation Statements Document Initiated by Scribe: Yes Documenting Scribe: Lian Butt Provider For Whom [facility] is Documenting (Include Credential): Dr. Elliott Tang MD Scribe Attestation: Lian Laboy , scribed for Dr. Elliott Tang MD on 06/10/18 at 1256. Scribe Documentation Reviewed: Yes Provider Attestation: The documentation as recorded by the celiaibeLian accurately reflects the service I personally performed and the decisions made by me, Dr. Elliott Tang MD
[2018-06-10 11:11] VITALS: BP 114/60
== END 2018-06-10 11:10 | disposition home or self-care (01) ==
LOC: ED 09:41
DX: J32.9 Chronic sinusitis, unspecified (principal); J44.9 Chronic obstructive pulmonary disease, unspecified; F17.210 Nicotine dependence, cigarettes, uncomplicated; Z99.81 Dependence on supplemental oxygen; Z88.3 Allergy status to other anti-infective agents; Z88.0 Allergy status to penicillin
CPT/HCPCS: 99283

== ENCOUNTER 2018-08-17 17:13 | Observation (INO) | payer MEDICARE, MEDICAID ==
[2018-08-17] MEDS ORDERED: NS 0.9% 1000 ML* 1,000 ML IV ONE (17:35)
[2018-08-17] MEDS ORDERED: Albuterol/Ipratropium NEB.SOL* Albuterol 2.5 MG/Ipratropium 0.5 MG 3 ML INH ONE (17:38)
[2018-08-17] MEDS ORDERED: Dexamethasone IV* 4 MG/ML 5 ML VIAL (20 MG) IVPB ONE (17:39)
--- NOTE | 2018-08-17 17:46 | ED ---
HPI Chest Pain - HPI Summary HPI Summary: A 62 y/o female presents to the ED c/o chest pain. Currently, the patient is not experiencing chest pain, but is having SOB. In the ED room, the patient has a pulse of 69 BPM, O2 saturation of 95%, and blood pressure of 133/70. As per triage, "chest pain for 2 months, increasing pain today". According to EMS, the patient has been experiencing intermitent chest pain for the last two months. Today she is experiencing localized left sided chest pain that is radiating to her left arm. Additionally, she has SOB. She was given a NTG and Aspirin treatment which alleviated her pain from a 8/10 to a 5/10, then to completely rid of the pain. According to the patient, she is experiencing localized chest pain that is radiating to her left arm. She noted that the NTG treatment alleviated her chest pain, but she feels something is squeezing her chest. PMHx of bipolar disorder and left-leg DVT, denies CO, DM and HTN. Patient does have O2 st home. SHx of smoker (4 cigs per day), no ETOH, no recreational drugs. Patient is on blood thinners. Patient is not allergic to contrast. - History of Current Complaint Chief Complaint: EDChestPainROMI Time Seen by Provider: 08/17/18 17:16 Hx Obtained From: Patient Onset/Duration: Started Hours Ago, Still Present Timing: Constant Initial Severity: Moderate Current Severity: Moderate Pain Intensity: 6 Pain Scale Used: 0-10 Numeric Chest Pain Location: Left Anterior Chest Pain Radiates: Yes Chest Pain Radiates To:: Arm - LEFT Character: Pressure/Squeezing Aggravating Factor(s): Nothing Alleviating Factor(s): Nothing Associated Signs and Symptoms: Positive: Chest Pain, Shortness of Breath - Additional Pertinent History Primary Care Physician: [id number] - Allergy/Home Medications Allergies/Adverse Reactions: Allergies Allergy/AdvReac Type Severity Reaction Status Date / Time bupropion [From Wellbutrin] Allergy Agitation Verified 08/17/18 18:06 Cephalosporins Allergy Agitation Verified 08/17/18 18:06 chlorproethazine Allergy Agitation Verified 08/17/18 18:06 erythromycin base Allergy Diarrhea Verified 08/17/18 18:06 Penicillins Allergy Hives Verified 08/17/18 18:06 tobramycin Allergy Diarrhea Verified 08/17/18 18:06 Home Medications: Home Medications Gabapentin CAP(*) [Neurontin 100 mg CAP(*)] 200 mg PO BID 08/17/18 [History Confirmed 08/17/18] Isosorbide Mononitrate ER TAB* [Imdur ER TAB*] 30 mg PO DAILY 08/17/18 [History Confirmed 08/17/18] Mirtazapine 15 mg PO BEDTIME 08/17/18 [History Confirmed 08/17/18] OLANzapine TAB* [Zyprexa 10 MG TAB*] 10 mg PO DAILY 08/17/18 [History Confirmed 08/17/18] amLODIPine TAB* [Norvasc 5 mg TAB*] 10 mg PO DAILY 08/17/18 [History Confirmed 08/17/18] PMH/Surg Hx/FS Hx/Imm Hx Endocrine/Hematology History: Reports: Hx Anticoagulant Therapy, Other Endocrine /Hematological Disorders - L leg DVT Denies: Hx Diabetes, Hx Systemic Lupus Erythematosus, Hx Thyroid Disease Cardiovascular History: Reports: Hx Angina, Hx Coronary Artery Disease, Hx Deep Vein Thrombosis, Hx Hypercholesterolemia, Hx Hypertension, Hx Peripheral Vascular Disease, Other Cardiovascular Problems/Disorders - PERIPHERAL ARTERY DISEASE; CAD; DVT Denies: Hx Congestive Heart Failure, Hx Pacemaker/ICD Respiratory History: Reports: Hx Asthma, Hx Chronic Bronchitis, Hx Chronic Obstructive Pulmonary Disease (COPD) - 2L at home, Hx Pneumonia, Hx Seasonal Allergies, Other Respiratory Problems/Disorders - PNA Denies: Hx Cystic Fibrosis, Hx Lung Cancer, Hx Pleural Effusion, Hx Pulmonary Edema, Hx Pulmonary Embolism, Hx Sleep Apnea GI History: Reports: Hx Gall Bladder Disease - removed, Hx Gastroesophageal Reflux Disease, Hx Irritable Bowel, Other GI Disorders - hernia repair X 2 Denies: Hx Cirrhosis, Hx Crohn's Disease, Hx Diverticulosis History: Denies: Hx Dialysis, Hx Renal Disease Musculoskeletal History: Denies: Hx Arthritis, Hx Rheumatoid Arthritis, Hx Osteoporosis Sensory History: Denies: Hx Contacts or Glasses, Hx Glaucoma, Hx Deafness, Hx Hearing Aid, Hx Hearing Problem Opthamlomology History: Denies: Hx Contacts or Glasses, Hx Glaucoma Neurological History: Denies: Hx Headaches, Hx Seizures, Hx Transient Ischemic Attacks (TIA) Psychiatric History: Reports: Hx Anxiety, Hx Depression, Hx Inpatient Treatment , Hx Community Mental Health Tx, Hx Schizophrenia, Hx Bipolar Disorder, Hx Suicide Attempt Denies: Hx Eating Disorder, Hx Panic Disorder, Hx of Violent Episodes Against Others - Cancer History Hx Chemotherapy: No - Surgical History Surgery Procedure, Year, and Place: bilat thumb repairs, hernia repairs X 2, cholecystectomy, appendectomy Hx Anesthesia Reactions: No - Immunization History Date of Tetanus Vaccine: UTD Date of Influenza Vaccine: UTD Infectious Disease History: No Infectious Disease History: Denies: Hx Clostridium Difficile, Hx Hepatitis, Hx Human Immunodeficiency Virus (HIV), Hx of Known/Suspected MRSA, Hx Shingles, Hx Tuberculosis, Traveled Outside the [place] in Last 30 Days - Family History Known Family History: Positive: Cardiac Disease - CO, Other - schizophrenia, anxiety Negative: Hypertension, Diabetes Family History: Negative HTN/DM per EMR - Social History Alcohol Use: Occasionally Hx Substance Use: No Substance Use Type: Reports: None Hx Tobacco Use: Yes Smoking Status (MU): Light Every Day Tobacco Smoker Type: Cigarettes Amount Used/How Often: half a pack a day Have You Smoked in the Last Year: Yes Review of Systems Negative: Fever Positive: Chest Pain Positive: Shortness Of Breath All Other Systems Reviewed And Are Negative: Yes Physical Exam - Summary Physical Exam Summary: GENERAL: Patient is a well-developed and nourished female who is lying comfortable in the stretcher. Patient is not in any acute respiratory distress. HEAD AND FACE: Normocephalic EYES: PERRLA, EOMI x 2. EARS: Hearing grossly intact. MOUTH: Oropharynx within normal limits. NECK: Supple, trachea is midline, no adenopathy, no JVD, no carotid bruit. CHEST: Symmetric, no tenderness at palpation LUNGS: Clear to auscultation bilaterally. No crackles. Patient has wheezing. CVS: Regular rate and rhythm, S1 and S2 present, no murmurs or gallops appreciated. ABDOMEN: Soft, non-tender. Bowel sounds are normal. No abdominal abnormal pulsations. EXTREMITIES: Full ROM in all major joints, no edema, no cyanosis or clubbing. NEURO: Alert and oriented x 3. No acute neurological deficits. Speech is normal and follows commands. SKIN: Dry and warm Triage Information Reviewed: Yes Vital Signs On Initial Exam: Initial Vitals Temp Pulse Resp BP Pulse Ox 98 F 70 18 133/70 95 08/17/18 17:19 08/17/18 17:19 08/17/18 17:19 08/17/18 17:19 08/17/18 17:19 Vital Signs Reviewed: Yes Diagnostics - Vital Signs Vital Signs Temp Pulse Resp BP Pulse Ox 08/17/18 17:19 98 F 70 18 133/70 95 - Laboratory Result Diagrams: 08/18/18 05:49 08/18/18 05:49 Lab Statement: Any lab studies that have been ordered have been reviewed, and results considered in the medical decision making process. - CT CTA chest/thorax CT Interpretation Completed By: Radiologist - 1. Stable mild biapical paraseptal emphysema. 2. No visible acute pulmonary embolism. 3. No aortic dissection. ED physician has reviewed this radiology report. - EKG 1723 Cardiac Rate: NL - 65 BPM EKG Rhythm: Sinus Rhythm - 65 BPM Summary of EKG Findings: minimal ST elevation seen in inferior leads. Similar to previous EKG on 06/07/2018 Chest Pain Course/Dx - Course Course Of Treatment: A 62 y/o female presents to the ED c/o chest pain. Currently, the patient is not experiencing chest pain, but is having SOB. In the ED room, the patient has a pulse of 69 BPM, O2 saturation of 95%, and blood pressure of 133/70. As per triage, "chest pain for 2 months, increasing pain today". According to EMS, the patient has been experiencing intermitent chest pain for the last two months. Today she is experiencing localized left sided chest pain that is radiating to her left arm. Additionally, she has SOB. She was given a NTG and Aspirin treatment which alleviated her pain from a 8/10 to a 5/10, then to completely rid of the pain. According to the patient, she is experiencing localized chest pain that is radiating to her left arm. She noted that the NTG treatment alleviated her chest pain, but she feels something is squeezing her chest. PMHx of bipolar disorder and left-leg DVT, denies CO, DM and HTN. Patient does have O2 st home. SHx of smoker (4 cigs per day), no ETOH, no recreational drugs. Patient is on blood thinners. Patient is not allergic to contrast. Physical examination revealed wheezing. An EKG revealed NSR of 65 BPM , minimal ST elevation seen in inferior leads. Similar to previous EKG on 2017. Hematology was done. Labs were all within normal limits. In the ED course , the patient received Magnesium Sulfate, Albuterol, Decadron, Omnipaque, and IV fluids. CTA Chest/Thorax reveals 1. Stable mild biapical paraseptal emphysema. 2. No visible acute pulmonary embolism. 3. No aortic dissection. Patient care was discussed with hospitalist, Dr. Sanchez, who accepts patient for admission. Patient will be admitted with a diagnosis of chest pain and COPD. Patient is agreeable with this plan. - Diagnoses Provider Diagnoses: Chest pain, COPD (chronic obstructive pulmonary disease) - Provider Notifications Discussed Care Of Patient With: Christiano Sanchez Time Discussed With Above Provider: 19:10 Instructed by Provider To: Other - Accepts patient for admission. Discharge - Sign-Out/Discharge Documenting (check all that apply): Sign-Out Patient - LAYA Signing out patient TO: Christiano Sanchez Receiving patient FROM: Ezra Smith - Discharge Plan Condition: Stable Disposition: ADMITTED TO [facility] - Billing Disposition and Condition Condition: STABLE Disposition: Admitted to [facility] - Attestation Statements Document Initiated by Scribe: Yes Documenting Scribe: Bob Alan Provider For Whom Scribe is Documenting (Include Credential): Ezra Smith MD Scribe Attestation: Bob Laboy scribed for Ezra Smith MD on 08/18/18 at 0755. Scribe Documentation Reviewed: Yes Provider Attestation: The documentation as recorded by the scribBob pleitez accurately reflects the service I personally performed and the decisions made by , Ezra Smith MD Status of Scribe Document: Viewed
[2018-08-17 18:02] LABS: ABS Basophils 0 10^3/ul (0-0.2); ABS Eosinophils 0.4 10^3/ul (0-0.6); ABS Lymphocytes 1.7 10^3/ul (1.0-4.8); ABS Monocytes 0.6 10^3/ul (0-0.8); ABS Nucleated RBC 0 10^3/ul; Eosinophil % 5.2 %; Hematocrit 39 % (35-47); Hemoglobin 12.8 g/dl (12.0-16.0); Lymphocyte % 22.1 %; Mean Corpuscular HGB Conc 33 g/dl (31-36); Mean Corpuscular Hemoglobin 28 pg (27-31); Mean Corpuscular Volume 86 fL (80-97); Mean Platelet Volume 8.6 fL (7.4-10.4); Nucleated Red Blood Cells % 0; Platelet Count 155 10^3/ul (150-450); Red Blood Count 4.57 10^6/ul (4.00-5.40); Red Cell Distribution Width 15 % (10.5-15); White Blood Count 7.7 10^3/ul (3.5-10.8)
[2018-08-17 18:10] LABS: INR 2.93 (0.77-1.02)
[2018-08-17 18:22] LABS: EGFR Non-African American 70.1 (>60)
[2018-08-17] MEDS ORDERED: Magnesium Sulfate 2 GM IV* 2 GM/50 ML BAG IVPB ONE (18:31)
[2018-08-17] MEDS ORDERED: Iohexol 350* (CONTRAST) 500 ML MDV IV ONE (18:40)
[2018-08-17] MEDS ORDERED: Acetaminophen TAB* 325 MG PO PRN (19:58)
[2018-08-17] MEDS ORDERED: Ondansetron INJ* 2 MG/ML VIAL IV PRN (19:58)
[2018-08-17] MEDS ORDERED: Albuterol 2.5 MG/3 ML NEB.SOL* (0.083%) INH PRN ×2 (19:58→20:05)
[2018-08-17] MEDS ORDERED: ALPRAZolam TAB* 0.25 MG PO PRN (20:05)
[2018-08-17] MEDS: Gabapentin CAP(*) 100 MG PO SCH (21:56)
[2018-08-17] MEDS: Lithium Carbonate TAB* 300 MG PO SCH (21:57)
[2018-08-17] MEDS: Metoprolol Tartrate TAB* 25 MG PO SCH (21:57)
[2018-08-17] MEDS: Mirtazapine TAB* 15 MG PO SCH (21:57)
[2018-08-17] MEDS ORDERED: Warfarin TAB(*) 3 MG PO SCH (22:00)
--- NOTE | 2018-08-18 00:13 | HP ---
CC: Dr. Tom Schrader * HISTORY AND PHYSICAL: DATE OF ADMISSION: 08/17/18 PROVIDER: Fouzia Saab NP ATTENDING PHYSICIAN: Dr. Christiano Sanchez * (dictated by Fouzia Saab NP). PRIMARY CARE PROVIDER: Dr. Tom Schrader. CHIEF COMPLAINT: Shortness of breath and chest pain. HISTORY OF PRESENT ILLNESS: Ms. Camejo is a 62-year-old female with a past medical history significant for COPD, chronic hypoxic respiratory failure, hypertension, coronary artery disease, peripheral vascular disease, and hyperlipidemia who presents today with concern for chest pain and shortness of breath. She reports the chest pain has been off and on for a few months and describes pain in the left side of her chest that radiates down her left arm. She states that the pain usually lasts for a few minutes and then relieves on its own. She describes that as a sharp, stabbing pain that is exacerbated with exertion and movement and alleviated with rest. She has not tried to treat the pain with any home medications. She does report that upon arriving to the ER, she received oxygen and nitro and aspirin, which did help with her chest pain and has eradicated the pain. She states that her shortness of breath also resolved with the chest pain once that had been relieved. She also describes recent subjective sweating and chills and feeling feverish, shortness of breath and nausea. She denies any recent cold or flu symptoms, dizziness, syncope, or near syncope. She does report that her left foot swells up secondary to history of DVT, but is on Coumadin with therapeutic INRs. She denies cough or hemoptysis. She denies abdominal pain, nausea, vomiting, diarrhea, dysuria or hematuria. She denies any focal weakness or sensory loss or visual, hearing or swallowing complaints. No new joint pains or muscle pains or rashes. Here in the ER, she again did receive oxygen as her O2 sats dipped into the high 80s as well as nitroglycerin sublingual and aspirin. She also received dexamethasone for wheezing. She did have a CTA of the chest, which showed stable mild biapical paraseptal emphysema and no visible acute pulmonary emboli or aortic dissection. Her initial troponin is 0, and EKG shows sinus rhythm with minimal ST elevations in the inferior leads, which is similar to the previous EKGs. The patient's magnesium is also 1.7 and she did receive magnesium replacement for this. PAST MEDICAL HISTORY: Includes: 1. COPD. 2. Chronic hypoxic respiratory failure requiring 2 L at nighttime. 3. Hypertension. 4. Peripheral vascular disease. 5. Coronary artery disease 6. Hyperlipidemia. 7. Schizophrenia. 8. Bipolar disorder. 9. Anxiety. 10. Depression. 11. History of left lower extremity DVT, on warfarin. 12. Mitral regurgitation. PAST SURGICAL HISTORY: 1. Appendectomy. 2. Hernia repair x2. 3. Right lower extremity stent. 4. Cholecystectomy. HOME MEDICATIONS: 1. Amlodipine 10 mg daily. 2. Olanzapine 10 mg daily. 3. Isosorbide mononitrate ER 30 mg daily. 4. Gabapentin 200 mg b.i.d. 5. Warfarin 4.5 mg daily. 6. Incruse Ellipta 62.5 mcg inhaled daily. 7. Singulair 10 mg daily. 8. Mirtazapine 15 mg at bedtime. 9. Metoprolol tartrate 25 mg b.i.d. 10. Archbald carbonate 300 mg b.i.d. 11. Breo Ellipta 1 puff inhaled daily. 12. Nexium 40 mg daily. 13. Atorvastatin 10 mg daily. 14. Albuterol inhaler 2 puffs inhaled q.4 hours p.r.n. 15. Albuterol nebulizer 2.5 mg inhaled q.2 hours p.r.n. 16. Alprazolam 0.25 mg q.6 hours p.r.n. ALLERGIES: Include BUPROPION, CEPHALOSPORINS, CHLORPROETHAZINE, ERYTHROMYCIN, PENICILLINS, and TOBRAMYCIN. FAMILY HISTORY: Her mother secondary to COPD and her father secondary to an PR. SOCIAL HISTORY: The patient is a current smoker with a 40-year smoking history. She reports rare alcohol use and denies illicit drug use. She is disabled. She does report that her son will be her surrogate decision maker at this time. REVIEW OF SYSTEMS: A 12-point review of systems was performed and all pertinent positives and negatives are as per HPI. Other systems as mentioned are negative. PHYSICAL EXAMINATION GENERAL: This is a well developed, well nourished, pleasant middle aged woman, sitting up in ED stretcher, in no acute distress. VITAL SIGNS: Temperature 98, heart rate 80, respiratory rate 20, blood pressure 131/52, and O2 saturation is 94% on 1 L nasal cannula. HEENT: Head is atraumatic, normocephalic. Face is symmetrical. Pupils are equal and round. Extraocular movements are intact. Oral mucosa is moist. NECK: Supple. No JVD noted. No carotid bruits auscultated. No lymphadenopathy appreciated. LUNGS: Clear to auscultation bilaterally. There are scattered expiratory wheezes. CARDIAC: Normal S1, S2 heart sounds. Regular rate and rhythm. No murmurs appreciated. No peripheral edema noted. Distal pulses are present and symmetrical. ABDOMEN: Soft, nontender, nondistended with normoactive bowel sounds. EXTREMITIES: No clubbing or cyanosis. The patient has full range of motion. SKIN: Warm and dry and appears intact. NEURO: She is alert and oriented x3. No focal deficits. Cranial nerves II through XII are grossly intact. Speech is clear. PSYCH: Affect is appropriate. DIAGNOSTIC STUDIES/LAB DATA: CTA of the chest as per above. EKG as per above. CBC: WBC 7.7, hemoglobin 12.8, hematocrit 29, platelet count 155. INR 2.93. CMP: Sodium 138, potassium 4.2, chloride 106, CO2 29, BUN 11, creatinine 0.83, glucose 93, lactic acid 0.7, calcium 9.7. Magnesium 1.7. AST 10, ALT 70 , alk phos 82, troponin 0. BNP is 33. ASSESSMENT AND PLAN: This is a 62-year-old female with a past medical history significant for chronic obstructive pulmonary disease, chronic hypoxic respiratory failure, hypertension, peripheral vascular disease, coronary artery disease and hyperlipidemia, who presents today with concerns for chest pain and shortness of breath. She will be admitted under observation. The plan is as follows: 1. Chest pain. Currently resolved. Her initial troponin is 0. EKG is similar to previous. She currently denies chest pain. She has received aspirin and nitro. She does not recall having a stress test recently. I do not see one in our system. Recently in her most recent stress test in 2016, given her new complaint, it may be worthwhile to recheck a stress test. She would not be able to tolerate a treadmill. Currently, there is a concern for mild chronic obstructive pulmonary disease exacerbation and currently with her chest pain, although this is unclear. She did receive nitro, aspirin and steroids in the ER with alleviation of her symptoms. I am unable to trace if her chest pain is related to her shortness of breath or if it is separate, although there is concern for radiating chest pain to the left arm and subjective nausea and diaphoresis. We will continue to trend the troponins, recheck the EKG. Should she continue to be stable tomorrow, we could consider a Sunday stress test, otherwise this would thus be pursued as an outpatient. She denies any orthopnea , PND, chest pain is worse with exertion. She has not had any fluid gain. Recommend following troponins and reevaluating tomorrow. We will continue the patient's Imdur, Lopressor, and atorvastatin. 2. Dyspnea. The patient does have chronic obstructive pulmonary disease with chronic hypoxic respiratory failure. She did have some mild desaturations here in the ER, although it was not clear what she was doing when she did desaturate. She currently appears comfortable. She did receive a one time dose of dexamethasone 10 mg. She does have some scattered wheezing, but nothing significant. So, I will hold off on steroids at this time, but should have a return of wheezing or worsening wheezing, we will certainly add those back and would recommend a longer course of steroids in order to fully treat her. For now, we will continue with her home regimen, which includes Ellipta, Breo Ellipta, p.r.n. albuterol, and Singulair. 3. History of deep venous thrombosis. No swelling noted in the lower extremity at this time. There is no pain in the lower extremity and INR is therapeutic. CT is negative for pulmonary embolism. We will continue her warfarin, recheck an INR tomorrow. 4. Hypermagnesemia. This was replaced in the ER. 5. History of hypertension. Currently with acceptable control. We will continue home regimen of amlodipine, metoprolol. 6. History of schizophrenia and bipolar disorder. Continue lithium and olanzapine. 7. History of depression. Continue mirtazapine, which also helps with the patient's sleep. 8. History of anxiety. Continue gabapentin and alprazolam. 9. FEN. Heart healthy diet. 10. DVT prophylaxis. Continue warfarin. 11. Code status: She is a full code. 12. Disposition. She will be discharged to home when medically stable. TIME SPENT: Time spent on this admission was approximately 60 minutes with more than half the time was spent [id number] with the patient obtaining history and physical, performing physical examination, and reviewing the plan of care. Plan of care was also reviewed with my attending, Dr. Sanchez, who is in agreement. FOUZIA SAAB NP [id number]/CPS #: [id number] ANNITA
[2018-08-18] MEDS: Omeprazole CAP* 20 MG PO SCH (06:09)
[2018-08-18 06:13] LABS: ABS Basophils 0 10^3/ul (0-0.2); ABS Eosinophils 0 10^3/ul (0-0.6); ABS Lymphocytes 0.5 10^3/ul (1.0-4.8); ABS Monocytes 0.1 10^3/ul (0-0.8); ABS Neutrophils 2.8 10^3/ul (1.5-7.7); ABS Nucleated RBC 0 10^3/ul; Eosinophil % 0.2 %; Hematocrit 38 % (35-47); Hemoglobin 12.2 g/dl (12.0-16.0); Lymphocyte % 14.5 %; Mean Corpuscular HGB Conc 33 g/dl (31-36); Mean Corpuscular Hemoglobin 28 pg (27-31); Mean Corpuscular Volume 86 fL (80-97); Mean Platelet Volume 9.1 fL (7.4-10.4); Nucleated Red Blood Cells % 0.2; Platelet Count 144 10^3/ul (150-450); Red Blood Count 4.35 10^6/ul (4.00-5.40); Red Cell Distribution Width 15 % (10.5-15); White Blood Count 3.4 10^3/ul (3.5-10.8)
[2018-08-18 06:37] LABS: EGFR Non-African American 75.3 (>60)
[2018-08-18 06:42] LABS: INR 3.3 (0.77-1.02)
[2018-08-18] MEDS ORDERED: Fluticasone/Vilanterol MDI(NF) 200/25 MDI INH SCH (09:00)
[2018-08-18] MEDS ORDERED: Umeclidinium 62.5 MDI(NF) MDI INH SCH (09:00)
[2018-08-18] MEDS: Isosorbide Mononitrate ER TAB* 30 MG PO SCH (09:08)
[2018-08-18] MEDS: Gabapentin CAP(*) 100 MG PO SCH ×2 (09:08→20:43)
[2018-08-18] MEDS: Montelukast Sodium TAB* 10 MG PO SCH (09:08)
[2018-08-18] MEDS: Lithium Carbonate TAB* 300 MG PO SCH ×2 (09:08→20:43)
[2018-08-18] MEDS: Metoprolol Tartrate TAB* 25 MG PO SCH ×2 (09:08→20:42)
[2018-08-18] MEDS: OLANzapine TAB* 10 MG PO SCH (09:08)
[2018-08-18] MEDS: amLODIPine TAB* 5 MG PO SCH (09:08)
--- NOTE | 2018-08-18 15:54 | PN ---
Subjective Date of Service: 08/18/18 Interval History: Patient seen and examined at bedside. Denies fever, chills, shortness of breath (not increased above baseline), chest discomfort, N/V/D. She reports that she does not use O2 during the day at home and only 2 L at bedtime. She would like to go home tomorrow. We discussed getting a cardiac stress test in the AM with her history and complaints of chest pain as she has not had one since 2016. She does not want a Cardiac stress test. Tele: Sinus rhythm, rate 80's Family History: Unchanged from Admission Social History: Unchanged from Admission Past Medical History: Unchanged from Admission Objective Active Medications: Acetaminophen (Tylenol Tab*) 650 mg PO Q4H PRN Reason: FEVER/PAIN Albuterol (Ventolin 2.5 Mg/3 Ml Neb.Tania*) 2.5 mg INH Q2H PRN Reason: SOB/ WHEEZING Alprazolam (Xanax Tab*) 0.25 mg PO Q6H PRN Reason: ANXIETY Amlodipine Besylate (Norvasc Tab*) 10 mg PO DAILY [facility] Atorvastatin Calcium (Lipitor*) 10 mg PO 1700 [facility] Fluticasone/Vilanterol (Breo Ellipta Mdi 200/25(Nf)) 1 puff INH DAILY [facility] Gabapentin (Neurontin Cap(*)) 200 mg PO BID [facility] Isosorbide Mononitrate (Imdur Er Tab*) 30 mg PO DAILY [facility] [place] Carbonate ([place] Carbonate Tab*) 300 mg PO BID [facility] Metoprolol Tartrate (Lopressor Tab*) 25 mg PO BID [facility] Mirtazapine (Remeron Tab*) 15 mg PO BEDTIME [facility] Montelukast Sodium (Singulair Tab*) 10 mg PO DAILY [facility] Olanzapine (Zyprexa Tab*) 10 mg PO DAILY [facility] Omeprazole (Prilosec Cap*) 40 mg PO DAILY@0600 [facility]; Protocol Ondansetron HCl (Zofran Inj*) 4 mg IV Q6H PRN Reason: NAUSEA/VOMITING Umeclidinium [place] (Incruse Ellipta Mdi (Nf)) 1 inh INH DAILY [facility] Vital Signs - 8 hr 08/18/18 08/18/18 08/18/18 08:00 09:08 11:26 Temperature 98.3 F Pulse Rate 67 Respiratory 20 20 24 Rate Blood Pressure 129/48 (mmHg) O2 Sat by Pulse 95 Oximetry 08/18/18 11:44 Temperature Pulse Rate Respiratory 24 Rate Blood Pressure (mmHg) O2 Sat by Pulse Oximetry Oxygen Devices in Use Now: Nasal Cannula Result Diagrams: 08/18/18 05:49 08/18/18 05:49 Assess/Plan/Problems-Billing Assessment: Ms. Camejo is a 62 yo female with PMH significant for COPD, chronic hypoxic respiratory failure on home O2, HTN, PVD, CAD, HLD, Bipolar disorder, anxiety, depression, DVT and Schizophrenia who presented to the emergency room with complaints of chest pain. - Patient Problems (1) Dyspnea Code(s): R06.00 - DYSPNEA, UNSPECIFIED SNOMED Code(s): 332305245 Comment: - No signs of COPD exacerbation - Improved, near baseline - Will try to wean from day time O2 (2) Chest pain Code(s): R07.9 - CHEST PAIN, UNSPECIFIED SNOMED Code(s): 84599562 Comment: - Resolved - Troponin 0.00 x3 - ACS ruled out with serial negative troponins - No significant arrhythmias on Tele - Declined cardiac stress test (3) Supratherapeutic INR Code(s): R79.1 - ABNORMAL COAGULATION PROFILE SNOMED Code(s): 314127547 Comment: - Will hold warfarin today - Recheck INR in the AM (4) Hypomagnesemia Code(s): E83.42 - HYPOMAGNESEMIA SNOMED Code(s): 754885110 Comment: - Resolved - Recived replacement in the ED (5) CAD (coronary artery disease) Code(s): I25.10 - ATHSCL HEART DISEASE OF [place] CORONARY ARTERY W/O ANG PCTRS SNOMED Code(s): 29633357 Comment: - Denies chest pain today - Continue Imdur, Lopressor and atorvastatin (6) COPD (chronic obstructive pulmonary disease) Code(s): J44.9 - CHRONIC OBSTRUCTIVE PULMONARY DISEASE, UNSPECIFIED SNOMED Code(s): 66026129 Comment: - No signs of COPD exacerbation at this time - Continue mometasone and albuterol PRN (7) DVT (deep venous thrombosis) Code(s): I82.409 - ACUTE EMBOLISM AND THOMBOS UNSP DEEP VN UNSP LOWER EXTREMITY SNOMED Code(s): 739525449 Comment: - No LE swelling - INR suptherapeutic today - Hold warfarin today (8) Depression Code(s): F32.9 - MAJOR DEPRESSIVE DISORDER, SINGLE EPISODE, UNSPECIFIED SNOMED Code(s): 70071329 Comment: - Continue mirtazapine (9) Anxiety Code(s): F41.9 - ANXIETY DISORDER, UNSPECIFIED SNOMED Code(s): 49593070 Comment: - Continue gabapentin and alprazolam (10) Hypertension Code(s): I10 - ESSENTIAL (PRIMARY) HYPERTENSION SNOMED Code(s): 37319625 Comment: - Normotensive, SBP 110-120's - Continue metoprolol, imdur, and amlodipine (11) Schizoaffective disorder, bipolar type Code(s): F25.0 - SCHIZOAFFECTIVE DISORDER, BIPOLAR TYPE SNOMED Code(s): 38211049 Comment: - Mood stable - Continue olanzapine, lithium and mirtazapine (12) DVT prophylaxis Code(s): LAE6681 - SNOMED Code(s): 419346036 Comment: - INR supratherapeutic - Will hold Warfarin (13) Full code status Code(s): Z78.9 - OTHER SPECIFIED HEALTH STATUS SNOMED Code(s): 346613026 Status and Disposition: OBV. Plan for discharge to home in the AM. Attending: Amairani Felipe
[2018-08-18] MEDS ORDERED: Atorvastatin* 10 MG TAB PO SCH (17:00)
[2018-08-18] MEDS ORDERED: Warfarin TAB(*) 3 MG PO SCH (17:00)
[2018-08-18] MEDS ORDERED: Spiriva Inhaler DEVICE* 1 EACH DEVICE INH SCH (18:00)
[2018-08-18] MEDS: Mometasone/Formoter 200/5 MDI INH SCH (20:00)
[2018-08-18] MEDS: Mirtazapine TAB* 15 MG PO SCH (20:43)
[2018-08-19 05:56] LABS: ABS Basophils 0 10^3/ul (0-0.2); ABS Eosinophils 0.3 10^3/ul (0-0.6); ABS Lymphocytes 1.9 10^3/ul (1.0-4.8); ABS Monocytes 0.5 10^3/ul (0-0.8); ABS Neutrophils 4.5 10^3/ul (1.5-7.7); ABS Nucleated RBC 0 10^3/ul; Eosinophil % 4.6 %; Hematocrit 36 % (35-47); Hemoglobin 11.8 g/dl (12.0-16.0); Lymphocyte % 26.2 %; Mean Corpuscular HGB Conc 33 g/dl (31-36); Mean Corpuscular Hemoglobin 28 pg (27-31); Mean Corpuscular Volume 87 fL (80-97); Mean Platelet Volume 8.7 fL (7.4-10.4); Nucleated Red Blood Cells % 0; Platelet Count 154 10^3/ul (150-450); Red Blood Count 4.17 10^6/ul (4.00-5.40); Red Cell Distribution Width 15 % (10.5-15); White Blood Count 7.3 10^3/ul (3.5-10.8)
[2018-08-19] MEDS: Omeprazole CAP* 20 MG PO SCH ×2 (06:22→08:35)
[2018-08-19 06:34] LABS: INR 3.39 (0.77-1.02)
[2018-08-19] MEDS: Mometasone/Formoter 200/5 MDI INH SCH (07:34)
[2018-08-19] MEDS: Isosorbide Mononitrate ER TAB* 30 MG PO SCH (08:35)
[2018-08-19] MEDS: Lithium Carbonate TAB* 300 MG PO SCH (08:36)
[2018-08-19] MEDS: Metoprolol Tartrate TAB* 25 MG PO SCH (08:36)
[2018-08-19] MEDS: Gabapentin CAP(*) 100 MG PO SCH (08:36)
[2018-08-19] MEDS: Montelukast Sodium TAB* 10 MG PO SCH (08:36)
[2018-08-19] MEDS: amLODIPine TAB* 5 MG PO SCH (08:36)
[2018-08-19] MEDS: OLANzapine TAB* 10 MG PO SCH (08:36)
[2018-08-19 08:49] VITALS: BP 122/48
[2018-08-19] MEDS ORDERED: Spiriva Inhaler DEVICE* 1 EACH DEVICE INH ONE (09:00)
[2018-08-19] MEDS ORDERED: Tiotropium CAP.INH* CAP.INH/18 MCG (USE ORDER SET !) INH SCH (09:00)
--- NOTE | 2018-08-19 10:36 | PN ---
Subjective Date of Service: 08/19/18 Interval History: Patient seen and examined at bedside. Denies fever, chills, shortness of breath , chest discomfort, N/V/D. She is able to be off O2 during the day and has ambulated in the halls without difficulty. She is declining both a Cardiac stress test and echo. We discussed that she needs to discuss with her PCP about getting a cardiac work-up outpatient. Family History: Unchanged from Admission Social History: Unchanged from Admission Past Medical History: Unchanged from Admission Objective Active Medications: Acetaminophen (Tylenol Tab*) 650 mg PO Q4H PRN Reason: FEVER/PAIN Albuterol (Ventolin 2.5 Mg/3 Ml Neb.Tania*) 2.5 mg INH Q2H PRN Reason: SOB/ WHEEZING Alprazolam (Xanax Tab*) 0.25 mg PO Q6H PRN Reason: ANXIETY Amlodipine Besylate (Norvasc Tab*) 10 mg PO DAILY [facility] Atorvastatin Calcium (Lipitor*) 10 mg PO 1700 [facility] Gabapentin (Neurontin Cap(*)) 200 mg PO BID [facility] Isosorbide Mononitrate (Imdur Er Tab*) 30 mg PO DAILY [facility] [place] Carbonate ([place] Carbonate Tab*) 300 mg PO BID [facility] Metoprolol Tartrate (Lopressor Tab*) 25 mg PO BID [facility] Mirtazapine (Remeron Tab*) 15 mg PO BEDTIME [facility] Mometasone Furoate/Formoterol Fumar (Dulera 200/5 Mdi*) 2 puff INH BID [facility] Montelukast Sodium (Singulair Tab*) 10 mg PO DAILY [facility] Olanzapine (Zyprexa Tab*) 10 mg PO DAILY [facility] Omeprazole (Prilosec Cap*) 40 mg PO DAILY@0600 [facility]; Protocol Ondansetron HCl (Zofran Inj*) 4 mg IV Q6H PRN Reason: NAUSEA/VOMITING Tiotropium [place] (Spiriva Cap.Inh*) 1 cap INH DAILY [facility] Vital Signs - 8 hr 08/19/18 08:36 Temperature 97.4 F Pulse Rate 77 Respiratory 20 Rate Blood Pressure 122/48 (mmHg) O2 Sat by Pulse 100 Oximetry Oxygen Devices in Use Now: None Appearance: NAD, sitting up in bed Ears/Nose/Mouth/Throat: Mucous Membranes Moist Respiratory: Symmetrical Chest Expansion and Respiratory Effort, Clear to Auscultation Cardiovascular: NL Sounds; No Murmurs; No JVD, RRR Abdominal: NL Sounds; No Tenderness; No Distention Extremities: No Edema Skin: No Rash or Ulcers Neurological: Alert and Oriented x 3, NL Muscle Strength and Tone Lines/Tubes/Other Access: Clean, Dry and Intact Peripheral IV - site benign Nutrition: Taking PO's Result Diagrams: 08/19/18 05:40 08/18/18 05:49 Microbiology and Other Data: Microbiology 08/17/18 17:47 Aerobic Blood Culture - Preliminary Blood Venous No Growth Day 1 Anaerobic Blood Culture - Preliminary No Growth Day 1 08/17/18 17:47 Aerobic Blood Culture - Preliminary Blood Venous No Growth Day 1 Anaerobic Blood Culture - Preliminary No Growth Day 1 Assess/Plan/Problems-Billing Assessment: Ms. Camejo is a 62 yo female with PMH significant for COPD, chronic hypoxic respiratory failure on home O2, HTN, PVD, CAD, HLD, Bipolar disorder, anxiety, depression, DVT and Schizophrenia who presented to the emergency room with complaints of chest pain. - Patient Problems (1) Dyspnea Code(s): R06.00 - DYSPNEA, UNSPECIFIED SNOMED Code(s): 245870644 Comment: - No signs of COPD exacerbation - Improved, near baseline (2) Chest pain Code(s): R07.9 - CHEST PAIN, UNSPECIFIED SNOMED Code(s): 32914676 Comment: - Resolved - Troponin 0.00 x3 - ACS ruled out with serial negative troponins - CTA negative for PE - No significant arrhythmias on Tele - Declined cardiac stress test and echo (3) Supratherapeutic INR Code(s): R79.1 - ABNORMAL COAGULATION PROFILE SNOMED Code(s): 317091310 Comment: - Will hold warfarin today - Recheck INR with PCP follow up appointment - Resume warfarin tomorrow at 4 mg (4) Hypomagnesemia Code(s): E83.42 - HYPOMAGNESEMIA SNOMED Code(s): 951587892 Comment: - Resolved - Recived replacement in the ED (5) CAD (coronary artery disease) Code(s): I25.10 - ATHSCL HEART DISEASE OF [place] CORONARY ARTERY W/O ANG PCTRS SNOMED Code(s): 01981277 Comment: - Denies chest pain today - Continue Imdur, Lopressor and atorvastatin (6) COPD (chronic obstructive pulmonary disease) Code(s): J44.9 - CHRONIC OBSTRUCTIVE PULMONARY DISEASE, UNSPECIFIED SNOMED Code(s): 81659876 Comment: - No signs of COPD exacerbation at this time - Continue mometasone and albuterol PRN (7) DVT (deep venous thrombosis) Code(s): I82.409 - ACUTE EMBOLISM AND THOMBOS UNSP DEEP VN UNSP LOWER EXTREMITY SNOMED Code(s): 441644343 Comment: - No LE swelling - INR suptherapeutic today - Hold warfarin today, resume warfarin tomorrow (8) Depression Code(s): F32.9 - MAJOR DEPRESSIVE DISORDER, SINGLE EPISODE, UNSPECIFIED SNOMED Code(s): 89714966 Comment: - Continue mirtazapine (9) Anxiety Code(s): F41.9 - ANXIETY DISORDER, UNSPECIFIED SNOMED Code(s): 71998854 Comment: - Continue gabapentin and alprazolam (10) Hypertension Code(s): I10 - ESSENTIAL (PRIMARY) HYPERTENSION SNOMED Code(s): 67690980 Comment: - Normotensive, SBP 110-120's - Continue metoprolol, imdur, and amlodipine (11) Schizoaffective disorder, bipolar type Code(s): F25.0 - SCHIZOAFFECTIVE DISORDER, BIPOLAR TYPE SNOMED Code(s): 96832471 Comment: - Mood stable - Continue olanzapine, lithium and mirtazapine (12) DVT prophylaxis Code(s): OWZ9754 - SNOMED Code(s): 249301579 Comment: - INR supratherapeutic - Will hold Warfarin (13) Full code status Code(s): Z78.9 - OTHER SPECIFIED HEALTH STATUS SNOMED Code(s): 578949767 Status and Disposition: OBV. Stable for discharge to home. Attending: Moe East
--- NOTE | 2018-08-20 15:10 | DS ---
CC: Dr. Tom Schrader * DISCHARGE SUMMARY: DATE OF ADMISSION: 08/17/18 DATE OF DISCHARGE: 08/19/18 ATTENDING PROVIDER: Mario Hay MD * (DICTATED BY ASHLEY LU NP) PRIMARY DIAGNOSES: 1. Chest pain, unclear cause. 2. Dyspnea. 3. Hypomagnesium. 4. Supratherapeutic INR. SECONDARY DIAGNOSES: 1. History of deep vein thrombosis. 2. Hypertension. 3. Schizophrenia and bipolar disorder. 4. Depression. 5. Anxiety. STUDIES WHILE IN THE HOSPITAL: Chest thoracic CTA on 08/17/18. Radiologist's impression: Stable mild biapical paraseptal emphysema. No visual acute pulmonary embolism. No aortic dissection. DISCHARGE MEDICATIONS: Continued home medications: 1. Amlodipine 10 mg oral daily. 2. Zyprexa 10 mg oral daily. 3. Isosorbide mononitrate 30 mg oral daily. 4. Gabapentin 200 mg oral twice daily. 5. Incruse Ellipta 62.5 mcg inhalation daily. 6. Singulair 10 mg oral daily. 7. Remeron 15 mg oral daily at bedtime. 8. Metoprolol tartrate 25 mg oral twice daily. 9. [place] carbonate 300 mg oral twice daily. 10. Breo Ellipta 200/25 one puff inhalation daily. 11. Nexium 40 mg oral daily. 12. Atorvastatin 10 mg oral daily. 13. ProAir 2 puffs inhalation every 4 hours as needed for shortness of breath or wheeze. 14. Albuterol 2.5mg/3 mL nebulizer solution 2.5 mg inhalation every 2 hours as needed for shortness of breath or wheeze. 15. Xanax 0.25 mg oral every 6 hours as needed for pain. Changed home medication: Warfarin 4 mg oral daily. New home medication: Acetaminophen 650 mg oral every 4 hours as needed for pain. HISTORY OF PRESENT ILLNESS/HOSPITAL COURSE: Ms. Camejo is a 62-year-old female with a past medical history significant for COPD; chronic hypoxic respiratory failure, on home O2 at nighttime; hypertension; coronary artery disease; peripheral vascular disease; hyperlipidemia who presented to the emergency room with complaints of chest pain, shortness of breath. She reports she has been having chest pain intermittently on and off for the last few months , describes the pain around the left side radiating down her left arm, usually lasts for a few minutes, relieves on its own. On the day of her presentation, she had a sharp, stabbing pain that was exacerbated with exertion and movement, alleviated with rest. She did not try to treat the pain at home, presented to the emergency room for evaluation. While in the emergency room, she received oxygen, nitro, aspirin which helped alleviate the pain. She also reported shortness of breath, feeling feverish. She had labs, was found to have a supratherapeutic INR. She is on warfarin secondary to DVT. She was found to have mild hypoxia with O2 sats into the 90s. She received dexamethasone for wheezing. She had a chest CTA showing mild emphysema, no PE. Her initial troponin was 0. She had minimal ST elevation in the inferior lead similar to previous EKGs and had magnesium of 1.7 and received replacement for this. The hospitalists were asked to evaluate her for admission. During her hospitalization, her troponins were trended, they were flat at 0. Her hypomagnesium resolved. She had no leukocytosis. Her shortness of breath resolved. She was feeling better. She initially was requiring oxygen supplement during the day, this was able to be weaned off. She refused a cardiac stress test, was offered an echo and also refused an echo. Again, PE was ruled out with CT of her chest. She was doing well, felt that she was stable for discharge today. Ms. Camejo is stable for discharge home today. Vital signs are as follows: Temperature 97.4, heart rate 77, respiratory rate , oxygen saturation 100 % on room air, blood pressure 122/48. DISCHARGE PLAN: Ms. Camejo will be discharged to home. Activity as tolerated. She should be on a heart-healthy diet. In regard to her chest pain, there is an unclear cause, although she does have risk factors for coronary artery disease. At this time, she is refusing a stress test or echocardiogram. I recommend encouraging her to have an outpatient stress test or echocardiogram to evaluate her heart function. She was also found to have a supratherapeutic INR. She had Coumadin held yesterday and has been asked to hold her Coumadin today and will resume warfarin 4 mg daily starting tomorrow. She should have an INR drawn on or Sunday of this week. She reports already having appointment for an INR. She has been resumed on her other usual home medications. Dr. Schrader's office will call her with a followup appointment date and time. She has been instructed to call his office if she does not hear back from them in the next 48 hours to make an appointment. She has been asked to return to the emergency room for any chest pain or return of shortness of breath. This is a summarized report of a complex medical history and hospital stay. For further details, please see the entire medical record. TIME SPENT: Time for this discharge was approximately 50 minutes, greater than half of that was spent with the patient discussing discharge plans and instructions. CONDITION ON DISCHARGE: Stable. ASHLEY LAU NP [id number]/CPS #: [id number]
== END 2018-08-19 12:50 | disposition home or self-care (01) ==
LOC: ED 17:13 → MEDTELE 19:58
PROVIDERS: ADMIT Internal Medicine; ATTEND Internal Medicine
DX: R07.9 Chest pain, unspecified (principal); R06.00 Dyspnea, unspecified; E83.42 Hypomagnesemia; R79.1 Abnormal coagulation profile; I25.10 Atherosclerotic heart disease of native coronary artery without angina pectoris; J44.9 Chronic obstructive pulmonary disease, unspecified; I82.409 Acute embolism and thrombosis of unspecified deep veins of unspecified lower extremity; F32.9 Major depressive disorder, single episode, unspecified; F41.9 Anxiety disorder, unspecified; F25.0 Schizoaffective disorder, bipolar type; Z86.718 Personal history of other venous thrombosis and embolism
CPT/HCPCS: 36415; 71275; 80048; 80053; 82553; 83605; 83735; 83880; 84484; 85025; 85610; 85730; 86140; 87040; 93005; 94640; 96365; 96375; 99284; A9270-GY; G0378; J1100; J3475; Q9967

== ENCOUNTER 2018-08-30 08:05 | Inpatient (IN) | payer MEDICARE, MEDICAID ==
--- NOTE | 2018-08-30 08:17 | ED ---
HPI Chest Pain - HPI Summary HPI Summary: This pt is a 62 y/o female presenting to [facility] via EMS for chest pain and SOB today. Pt reports her chest pain and SOB began about 1.5 hours DECK CADET at around 07: 00 today. She states she was already awake and had just gotten up from bed when her symptoms began. Pt describes chest pain as sharp and radiating to her back and left arm. Denies fever, chills, nausea, vomiting, weakness, numbness, tingling. EMT administered 324 mg ASA and 1 nitro DECK CADET causing her blood pressure to drop. Last BP per EMT is 130 systolic after IVF was started. Pt reports her chest pain alleviated mildly after nitro. Currently pt rates her chest pain 7/10 in severity. Pt states she has had this chest pain in the past. PMHx includes COPD, asthma, HTN, DVT. She wears 2L of O2 NC at night. - History of Current Complaint Hx Obtained From: Patient, EMS Onset/Duration: Started Hours Ago - 1.5 hours ago, Still Present Timing: Constant, Lasting Hours Current Severity: Moderate Pain Intensity: 7 Pain Scale Used: 0-10 Numeric Chest Pain Location: Diffuse Chest Pain Radiates To:: Back, Arm - left Character: Sharp/Stabbing - sharp Aggravating Factor(s): Nothing Alleviating Factor(s): EMS Tx - nitroglycerin Associated Signs and Symptoms: Positive: Chest Pain, Shortness of Breath, Back Pain. Negative: Numbness, Tingling, Weakness, Fever, Chills, Nausea, Vomiting - Additional Pertinent History Primary Care Physician: MANDY - Allergy/Home Medications Allergies/Adverse Reactions: Allergies Allergy/AdvReac Type Severity Reaction Status Date / Time bupropion [From Wellbutrin] Allergy Agitation Verified 08/30/18 08:14 Cephalosporins Allergy Agitation Verified 08/30/18 08:14 chlorproethazine Allergy Agitation Verified 08/30/18 08:14 erythromycin base Allergy Diarrhea Verified 08/30/18 08:14 Penicillins Allergy Hives Verified 08/30/18 08:14 tobramycin Allergy Diarrhea Verified 08/30/18 08:14 Home Medications: Home Medications Doxycycline Hyclate 100 mg PO BID 08/30/18 [History Confirmed 08/30/18] Gabapentin CAP(*) [Neurontin 400 mg CAP(*)] 400 mg PO BID 08/30/18 [History Confirmed 08/30/18] Mirtazapine TAB* [Remeron TAB*] 15 mg PO BEDTIME 08/30/18 [History Confirmed ] Warfarin TAB(*) [Coumadin TAB(*)] 4.5 mg PO DAILY 08/30/18 [History Confirmed ] PMH/Surg Hx/FS Hx/Imm Hx Endocrine/Hematology History: Reports: Hx Anticoagulant Therapy, Other Endocrine /Hematological Disorders - L leg DVT Denies: Hx Diabetes, Hx Systemic Lupus Erythematosus, Hx Thyroid Disease Cardiovascular History: Reports: Hx Angina, Hx Coronary Artery Disease, Hx Deep Vein Thrombosis, Hx Hypercholesterolemia, Hx Hypertension, Hx Peripheral Vascular Disease, Other Cardiovascular Problems/Disorders - PERIPHERAL ARTERY DISEASE; CAD; DVT Denies: Hx Congestive Heart Failure, Hx Pacemaker/ICD Respiratory History: Reports: Hx Asthma, Hx Chronic Bronchitis, Hx Chronic Obstructive Pulmonary Disease (COPD) - 2L at home, Hx Pneumonia, Hx Seasonal Allergies, Other Respiratory Problems/Disorders - PNA Denies: Hx Cystic Fibrosis, Hx Lung Cancer, Hx Pleural Effusion, Hx Pulmonary Edema, Hx Pulmonary Embolism, Hx Sleep Apnea GI History: Reports: Hx Gall Bladder Disease - removed, Hx Gastroesophageal Reflux Disease, Hx Irritable Bowel, Other GI Disorders - hernia repair X 2 Denies: Hx Cirrhosis, Hx Crohn's Disease, Hx Diverticulosis History: Denies: Hx Dialysis, Hx Renal Disease Musculoskeletal History: Denies: Hx Arthritis, Hx Rheumatoid Arthritis, Hx Osteoporosis Sensory History: Denies: Hx Contacts or Glasses, Hx Glaucoma, Hx Deafness, Hx Hearing Aid, Hx Hearing Problem Opthamlomology History: Denies: Hx Contacts or Glasses, Hx Glaucoma Neurological History: Denies: Hx Headaches, Hx Seizures, Hx Transient Ischemic Attacks (TIA) Psychiatric History: Reports: Hx Anxiety, Hx Depression, Hx Inpatient Treatment , Hx Community Mental Health Tx, Hx Schizophrenia, Hx Bipolar Disorder, Hx Suicide Attempt Denies: Hx Eating Disorder, Hx Panic Disorder, Hx of Violent Episodes Against Others - Cancer History Hx Chemotherapy: No - Surgical History Surgery Procedure, Year, and Place: bilat thumb repairs, hernia repairs X 2, cholecystectomy, appendectomy Hx Anesthesia Reactions: No - Immunization History Date of Tetanus Vaccine: UTD Date of Influenza Vaccine: UTD Infectious Disease History: Denies: Hx Clostridium Difficile, Hx Hepatitis, Hx Human Immunodeficiency Virus (HIV), Hx of Known/Suspected MRSA, Hx Shingles, Hx Tuberculosis - Family History Known Family History: Positive: Cardiac Disease - [place], Other - schizophrenia, anxiety Negative: Hypertension, Diabetes Family History: Negative HTN/DM per EMR - Social History Alcohol Use: Occasionally Hx Substance Use: No Substance Use Type: Reports: None Hx Tobacco Use: Yes Smoking Status (MU): Light Every Day Tobacco Smoker Type: Cigarettes Amount Used/How Often: half a pack a day Have You Smoked in the Last Year: Yes Review of Systems Negative: Fever, Chills Positive: Chest Pain Positive: Shortness Of Breath Negative: Vomiting, Nausea Musculoskeletal: Negative Negative: Weakness, Paresthesia, Numbness All Other Systems Reviewed And Are Negative: Yes Physical Exam - Summary Physical Exam Summary: VITAL SIGNS: Reviewed. GENERAL: Patient is a well-developed and nourished female who is lying comfortable in the stretcher. Patient is in some distress secondary to chest pain and SOB. She is able to speak in full sentences. HEAD AND FACE: No signs of trauma. No ecchymosis, hematomas or skull depressions. No sinus tenderness. EYES: PERRLA, EOMI x 2, No injected conjunctiva, no nystagmus. EARS: Hearing grossly intact. Ear canals and tympanic membranes are within normal limits. MOUTH: Oropharynx within normal limits. NECK: Supple, trachea is midline, no adenopathy, no JVD, no carotid bruit, no c- spine tenderness, neck with full ROM. CHEST: Symmetric, no tenderness at palpation LUNGS: Decreased breath sounds bilaterally. CVS: Regular rate and rhythm, S1 and S2 present, no murmurs or gallops appreciated. ABDOMEN: Soft, non-tender. No signs of distention. No rebound, no guarding, and no masses palpated. Bowel sounds are normal. EXTREMITIES: FROM in all major joints, no edema, no cyanosis or clubbing. NEURO: Alert and oriented x 3. No acute neurological deficits. Speech is normal and follows commands. SKIN: Dry and warm Triage Information Reviewed: Yes Vital Signs On Initial Exam: Initial Vitals Temp Pulse Resp BP Pulse Ox 98.9 F 80 25 135/65 99 08/30/18 08:07 08/30/18 08:07 08/30/18 08:07 08/30/18 08:07 08/30/18 08:07 Vital Signs Reviewed: Yes Diagnostics - Laboratory Result Diagrams: 08/30/18 08:26 08/30/18 08:26 Lab Statement: Any lab studies that have been ordered have been reviewed, and results considered in the medical decision making process. - Radiology Chest XR Radiology Interpretation Completed By: Radiologist Summary of Radiographic Findings: IMPRESSION: No active cardiopulmonary disease is noted. Dr. Roque has reviewed this report. - EKG 08:09 Cardiac Rate: NL - at 84 bpm EKG Rhythm: Sinus Rhythm EKG Comparison: No Significant Change - similar to prior EKG on 06/07/18. Summary of EKG Findings: No ST elevations. Q waves in leadss II, III, and aVF. Re-Evaluation - Re-Evaluation First Eval Re-Evaluation Time: 10:01 Comment: Bilateral wheezing Chest Pain Course/Dx - Course Assessment/Plan: This pt is a 62 y/o female presenting to [facility] via EMS for chest pain and SOB today. Pt reports her chest pain and SOB began about 1.5 hours DECK CADET at around 07:00 today. She states she was already awake and had just gotten up from bed when her symptoms began. Pt describes chest pain as sharp and radiating to her back and left arm. Denies fever, chills, nausea, vomiting, weakness, numbness, tingling. EMT administered 324 mg ASA and 1 nitro DECK CADET causing her blood pressure to drop. Last BP per EMT is 130 systolic after IVF was started. Pt reports her chest pain alleviated mildly after nitro. Currently pt rates her chest pain 7/10 in severity. Pt states she has had this chest pain in the past. PMHx includes COPD, asthma, HTN, DVT. She wears 2L of O2 NC at night. Blood work without any significant abnormality except for slight anemia, INR is 1.97, D-dimer is less than 200, chloride 112, anion gap of 1, magnesium 1.5 for which the patient was given magnesium IV. Total protein is 5.3. In the ED course the patient was given IV fluids since the patient was given aspirin and nitroglycerin by the EMS and the blood pressure decreased to 80/40. After 1 L of fluids the patients blood pressure has improved to 110/ 60. Patient was also given morphine for the chest pain. Since the patient had decreased breath sounds bilaterally she was given DuoNebs and Solu-Medrol. After these medications were given the symptoms have improved. At this point I discussed my physical exam, findings and test results with Dr. Waldrop from the hospitalist services who accepted the patient for admission. Patient is hemodynamically stable, alert and oriented 3. - Diagnoses Provider Diagnoses: Chest pain, COPD exacerbation - Provider Notifications Discussed Care Of Patient With: Gauri Waldrop - hospitalist Time Discussed With Above Provider: 10:06 Instructed by Provider To: Admit As Inpatient Discharge - Sign-Out/Discharge Documenting (check all that apply): Patient Departure - Admit to [facility] [place] - Discharge Plan Condition: Stable Disposition: ADMITTED TO [facility] - Billing Disposition and Condition Condition: STABLE Disposition: Admitted to [facility] - Attestation Statements Document Initiated by Williamsibpricilla: Yes Documenting Scribe: Karma Kc Provider For Whom [facility] is Documenting (Include Credential): Yovanny Roque MD Scribe Attestation: Karma Laboy, scribed for Yovanny Roque MD on 08/30/18 at 1900. Scribe Documentation Reviewed: Yes Provider Attestation: The documentation as recorded by the Karma kiran accurately reflects the service I personally performed and the decisions made by me, Yovanny Roque MD Status of Scribe Document: Viewed
[2018-08-30] MEDS ORDERED: Morphine VIAL* 4 MG/ML VIAL (1 ml vial) IV ONE (08:18)
[2018-08-30] MEDS ORDERED: Albuterol/Ipratropium NEB.SOL* Albuterol 2.5 MG/Ipratropium 0.5 MG 3 ML ONE (08:28)
[2018-08-30] MEDS ORDERED: Albuterol/Ipratropium NEB.SOL* Albuterol 2.5 MG/Ipratropium 0.5 MG 3 ML INH ONE (08:33)
[2018-08-30 08:37] LABS: ABS Basophils 0 10^3/ul (0-0.2); ABS Eosinophils 0.3 10^3/ul (0-0.6); ABS Monocytes 0.4 10^3/ul (0-0.8); ABS Neutrophils 3.9 10^3/ul (1.5-7.7); ABS Nucleated RBC 0 10^3/ul; Eosinophil % 5.4 %; Hematocrit 34 % (35-47); Hemoglobin 11.1 g/dl (12.0-16.0); Lymphocyte % 17.7 %; Mean Corpuscular HGB Conc 32 g/dl (31-36); Mean Corpuscular Hemoglobin 28 pg (27-31); Mean Corpuscular Volume 87 fL (80-97); Mean Platelet Volume 8.5 fL (7.4-10.4); Nucleated Red Blood Cells % 0; Platelet Count 126 10^3/ul (150-450); Red Blood Count 3.93 10^6/ul (4.00-5.40); Red Cell Distribution Width 15 % (10.5-15); White Blood Count 5.5 10^3/ul (3.5-10.8)
[2018-08-30 08:53] LABS: INR 1.97 (0.77-1.02)
[2018-08-30 08:59] LABS: Albumin 3.1 g/dL (3.2-5.2); Albumin/Globulin Ratio 1.4 (1-3); BUN/Creatinine Ratio 12.2 (8-20); Calcium 8.6 mg/dL (8.6-10.3); EGFR Non-African American 80.1 (>60); Globulin 2.2 g/dL (2-4); Magnesium 1.5 mg/dL (1.9-2.7); Potassium 4.5 mmol/L (3.5-5.0); Total Bilirubin 0.2 mg/dL (0.2-1.0); Total Protein 5.3 g/dL (6.4-8.9)
[2018-08-30 09:14] LABS: TSH (Thyroid Stimulating Horm) 1.46 mcIU/mL (0.34-5.60)
--- OUTSIDE RECORDS SUMMARY | 2018-08-30 09:20 | XMS REPORT | Continuity of Care Document ---
:1955 External Reference #:[id number] Author Name Bouchra Daniels Care Team Providers Name Role Phone Enrique Livingston M.D. Care Team Information Associate Director Of Sales Unavailable Payers Type Date Identification Numbers Payment Provider Subscriber Policy Number: [id number] Medicare Daina Camejo PayID: [id number] [address] [place] [address] Policy Number: [id number] Medicaid Daina Camejo PayID: [id number] [address] [place] [address] Advance Directives Description No Information Available Problems Date Description Provider Status Onset: 06/07/2018 Chronic obstructive pulmonary disease Ney Faulkner M.D. Active with (acute) exacerbation Onset: 06/07/2018 Schizophrenia Ney Faulkner M.D. Active Onset: 06/07/2018 Essential hypertension Ney Faulkner M.D. Active Onset: 06/07/2018 Tobacco use Ney Faulkner M.D. Active Onset: 06/08/2018 Acute hypoxemic respiratory failure Ney Faulkner M.D. Active Onset: 06/09/2018 Peripheral vascular disease Ney Faulkner M.D. Active Family History Description No Information Available Social History Type Date Description Comments Sex Unknown Allergies, Adverse Reactions, Alerts Date Description Reaction Status Severity Comments 02/09/2016 Wellbutrin Active per [facility] 02/09/2016 Cephalosporins Active per [facility] 02/09/2016 Chlorpromazine Active per [facility] 02/09/2016 Erythromycin Active per [facility] 02/09/2016 Penicillin Active per [facility] 02/09/2016 Tobramycin Active per [facility] Medications Medication Date Status Form Strength Qnty SIG Indications Ordering Provider Warfarin 01/09/ Active Tablets 5mg take as Unknown Sodium 2016 directed Levaquin 01/04/ Active Tablets 750mg 1 by mouth Unknown 2016 every day Lipitor / Active Tablets 10mg 1 by mouth Unknown 0000 every night at bedtime Isosorbide / Active Tablets ER 30mg 1 by mouth Unknown Mononitrate 0000 24HR every day ER Flovent HFA / Active Aerosol 220mcg/Act one puffs Unknown 0000 inhaled twice a day [place] / Active Tablets ER 450mg 1 by mouth po Unknown Carbonate ER 0000 daily Maalox Plus / Active 30mg on a prn Unknown 0000 basis Remeron / Active Tablets 15mg 1/2 tablet by Unknown 0000 mouth daily Nexium / Active Capsules 40mg 1 by mouth Unknown 0000 DR every day Nicotine / Active 14mg Transdermal Unknown Patch 0000 patch apply daily Proair HFA / Active Aerosol 108(90Base 2 puffs by Unknown 0000 ) mcg/Act mouth every 4 hours as needed Qvar / Active 1 puff Unknown 0000 inhaled b.i.d Singulair / Active Tablets 10mg 1 by mouth Unknown 0000 every day Zyprexa / Active 1 tablet po Unknown 0000 at bedtime Prednisone / Active tapered dose Unknown 0000 Flonase / Active 2 sprays both Unknown Allergy 0000 nostrils Relief daily Mucinex / Active Tablets ER 600mg 2 tablet po Unknown 0000 12HR b.i.d for cough Lisinopril / Active Tablets 5mg 1 by mouth Unknown 0000 every day Spiriva / Active daily Unknown Handihaler 0000 Amlodipine / Active Unknown Besylate 0000 Immunizations Description No Information Available Vital Signs Description No Information Available Results Test Date Facility Test Result H/L Range Note Celiac Panel 03/14/2010 [facility] Endomysial Abs Negative Negative [address] [place] [address] [phone] Gliadin Igg <1.0 U () 2 Gliadin Iga 3.0 U () 3 Reticulin AB Negative Negative 4 Laboratory 03/14/2010 [facility] Erythropoietin 37.3 Abnormal 2.6-18.5 5 test finding [address] mIU/[place] [address] [phone] Factor 5 03/14/2010 [facility] Factor 5 Leiden . () [address] [place] [address] [phone] Factor 5 Leiden Mut Result Negative Negative 7 Factor 5 Leiden Mut Interp . () 8 Reviewed By Jed Mendez MD () 9 Laboratory 03/14/2010 [facility] Methylmalonic 0.42 Abnormal < =0.40 10 test finding [address] Acid umol/L [place], [place] [address] [phone] Cardiolipin 03/14/2010 [facility] Cardiolipin Igg <4.0 GPL ( ) 11 Igg,Igm,Iga AB [address] [place] [address] [phone] Cardiolipin Igm AB <4.0 MPL () 12 Cardiolipin Iga AB <4.0 APL () 13 PI-Linked Ag 03/14/2010 [facility] RBC Type 99.9 % 99.0- 100.0 ([facility]) [address] 1(Normal) [place] [address] [phone] RBC Type II(Partial) 0.08 % 0.00-0.99 RBC Type III(Deficient) 0.00 % 0.00-0.01 Granulocytes 0.00 % 0.00-0.01 Monocytes 0.00 % 0.00-0.05 [facility] Interpretation . () 14 Asr Comment Sergei Dorman <SEE NOTE> () 15 Factor II (Prothrombin) 03/14/2010 [place] [address] Mutation . () [address] [place] [address] [phone] Prothrombin 69797 Mutation Negative Negative 17 [place] [address] Mutation Interp . () 18 Reviewed By Jed Mendez MD () 19 Factor 8 (VWF) 03/14/2010 [facility] Factor VIII 200 % 55- 205 20 Related Antigen [address] [place] [address] [phone] Von Willebrand Factor Ag 218 % Abnormal 55-200 21 Ristocetin Cofactor (VWF) 225 % Abnormal 55-200 22 Reviewed By Shimon Pinedo <SEE NOTE> () 23 Interpretation . () 24 1 Analyte Specific Reagent This test was developed and its performance characteristics determined by [facility], [facility]. This test has not been cleared or approved by the U.S. Food and Drug Administration. Test Performed by: [facility] Dpt of Lab Med and Pathology [address] [place] [address] Relief Manager: Carson Mcnamara III, M.D. 2 -- REFERENCE VALUE -- <20.0 (Negative) 20.0-30.0 (Weak Positive) >30.0 (Positive) Test Performed by: [facility] Dpt of Lab Med and Pathology [address] [place] [address] Relief Manager: Carson Mcnamara III, M.D. 3 -- REFERENCE VALUE -- <20.0 (Negative) 20.0-30.0 (Weak Positive) >30.0 (Positive) Test Performed by: [facility] Dpt of Lab Med and Pathology [address] [place] [address] Relief Manager: Carson Mcnamara III, M.D. 4 Test Performed by: [facility] Dpt of Lab Med and Pathology [address] [place] [address] Relief Manager: Carson Mcnamara III, M.D. 5 Test Performed by: [facility] Dpt of Lab Med and Pathology [address] [place] [address] Relief Manager: Carson Mcnamara III, M.D. 6 This test is a direct mutation analysis of leukocyte genomic DNA by the Invader Assay system ([employer], [employer], [place], [place]). 7 Analyte Specific Reagent This test was developed and its performance characteristics determined by [facility]. This test has not been cleared or approved by the U.S. Food and Drug Administration. 8 This individual DOES NOT have the factor V Leiden (R506Q) mutation. Although the factor V Leiden mutation is absent, the individual may have other genetic and environmental risk factors for thrombosis. Consider additional testing for hemostatic disorders associated with increased thrombosis risk, if indicated. Consider genetic consultation and counseling of potentially affected family members regarding laboratory testing. 9 Test Performed by: [facility] Dpt of Lab Med and Pathology [address] [place] [address] Relief Manager: Carson Mcnamara III, M.D. 10 In this sample, the concentration of methylmalonic acid (MMA) was minimally elevated. As the upper limit of the reference range varies in different laboratories from 0.4 to 0.6 umol/L, this finding could be considered normal, especially if the patient does not show other signs of vitamin B12 deficiency. Test Performed by: [facility] Dpt of Lab Med and Pathology [address] [place] [address] Relief Manager: Carson Mcnamara III, M.D. 11 Interpretation: Negative (<10.0 GPL) Test Performed by: [facility] Dpt of Lab Med and Pathology [address] [place] [address] Relief Manager: Carson Mcnamara III, M.D. 12 Interpretation: Negative (<10.0 MPL) Test Performed by: [facility] Dpt of Lab Med and Pathology [address] [place] [address] Relief Manager: Carson Mcnamara III, M.D. 13 Interpretation: Negative (<10.0 APL) Test Performed by: [facility] Dpt of Lab Med and Pathology [address] [place] [address] Relief Manager: Carson Mcnamara III, M.D. 14 Normal phenotyping result. No [facility] clone is detected in RBC, granulocytes or monocytes. 15 Sergei Dorman MD Antibodies to the following antigens were used for cell gating and interpretation. RBC's: MW660g and CD59. WBC's: CD14, CD15, CD16, CD24, CD33, CD45, FLAER. Analyte Specific Reagent This test was developed and its performance characteristics determined by [facility], [facility]. This test has not been cleared or approved by the U.S. Food and Drug Administration. Test Performed by: [facility] Dpt of Lab Med and Pathology [address] [place] [address] Relief Manager: Carson Mcnamara III, M.D. 16 This test is a direct mutation analysis of leukocyte genomic DNA by the Invader Assay system ([employer], [employer], [place], [place]). 17 Analyte Specific Reagent This test was developed and its performance characteristics determined by [facility], [facility]. This test has not been cleared or approved by the U.S. Food and Drug Administration. 18 This individual DOES NOT have the Prothrombin [id number] mutation. Although the Prothrombin C13404A mutation is absent, the individual may have other genetic and environmental risk factors for thrombosis. Consider additional testing for hemostatic disorders associated with increased thrombosis risk, if indicated. Consider genetic consultation and counseling of potentially affected family members regarding laboratory testing. 19 Test Performed by: [facility] Dpt of Lab Med and Pathology [address] [place] [address] Relief Manager: Carson Mcnamara III, M.D. 20 Test Performed by: [facility] Dpt of Lab Med and Pathology [address] [place] [address] Relief Manager: Carson Mcnamara III, M.D. 21 Test Performed by: [facility] Dpt of Lab Med and Pathology [address] [place] [address] Relief Manager: Carson Mcnamara III, M.D. 22 Note: Lipemic sample. Lipemia may interfere with ristocetin cofactor assay causing spurious results. Test Performed by: [facility] Dpt of Lab Med and Pathology [address] [place] [address] Relief Manager: Carson Mcnamara III, M.D. 23 Juana Dalal M.D. Test Performed by: [facility] Dpt of Lab Med and Pathology [address] [place] [address] Relief Manager: Carson Mcnamara III, M.D. 24 No laboratory evidence of von Willebrand's disease (VWD). Note: Elevation of von Willebrand factor (VWF), and/or factor VIII, can reflect "acute phase" reaction, acute or chronic inflammation, liver disease, vasculitis, estrogen therapy or , etc. Procedures Date Code Description Status 05/02/2017 55447 EKG, Interpretation Only Completed 01/20/2016 77962 EKG, Interpretation Only Completed 01/10/2016 03788 Treadmill Interp/Report Only Completed 01/10/2016 07109 Stress Test Supervsn W/Out I/R Completed 01/09/2016 29312 EKG, Interpretation Only Completed 12/29/2015 18828 ECHO Transthorasic Realtime 2D W Doppler & Color Flow Hosp Completed 08/22/2015 38882 EKG, Interpretation Only Completed 09/07/2010 68712 EKG, Interpretation Only Completed 08/13/2008 26024 EKG, Interpretation Only Completed 08/13/2008 51811 EKG, Interpretation Only Completed Encounters Type Date Location Provider Dx Diagnosis Office Visit 06/09/2018 [facility] Ney Faulkner, J96.21 Acute and chronic 9:03a collin Parks M.D. respiratory Hospitalists failure with hypoxia J44.1 Chronic obstructive pulmonary disease w (acute) exacerbation I73.9 Peripheral vascular disease, unspecified I10 Essential (primary) hypertension F20.9 Schizophrenia, unspecified Office Visit 06/08/2018 9:03a [facility] Ney J96.01 Acute respiratory Assoc,collin Faulkner M.D. failure with Hospitalists hypoxia J44.1 Chronic obstructive pulmonary disease w (acute) exacerbation I10 Essential (primary) hypertension F20.9 Schizophrenia, unspecified Office Visit 06/07/2018 9:02a [facility] Ney J96.01 Acute respiratory Assoc,collin Faulkner M.D. failure with Hospitalists hypoxia J44.1 Chronic obstructive pulmonary disease w (acute) exacerbation F20.9 Schizophrenia, unspecified I10 Essential (primary) hypertension Z72.0 Tobacco use Office Visit 06/06/2018 9:02a [facility] Carol Ibarra J44.1 Chronic Assoc,pc VICE PRESIDENT OF OPERATIONS obstructive Hospitalists pulmonary disease w (acute) exacerbation F17.210 Nicotine dependence, cigarettes, uncomplicated J96.21 Acute and chronic respiratory failure with hypoxia R07.9 Chest pain, unspecified Office Visit 07/04/2017 11:21a [facility] Eda S. J44.1 Chronic Assoc,pc Valentín, N.P. obstructive Hospitalists pulmonary disease w (acute) exacerbation F20.9 Schizophrenia, unspecified Office Visit 07/03/2017 11:17a [facility] Eda S. J44.1 Chronic Assoc,pc Valentín, N.P. obstructive Hospitalists pulmonary disease w (acute) exacerbation F20.9 Schizophrenia, unspecified Office Visit 07/02/2017 11:16a [facility] Eda S. J44.1 Chronic Assoc,pc Foster, N.P. obstructive Hospitalists pulmonary disease w (acute) exacerbation F20.9 Schizophrenia, unspecified Office Visit 07/01/2017 [facility] Kesha J44.1 Chronic 11:15a Assoc,pc DAHIANA Nation obstructive Hospitalists pulmonary disease w (acute) exacerbation F20.9 Schizophrenia, unspecified Office Visit 06/30/2017 [facility] Christiano Belcher J44.1 Chronic 11:12a Assoc,pc Win Sanchez,FACP obstructive Hospitalists pulmonary disease w (acute) exacerbation F20.9 Schizophrenia, unspecified Office Visit 06/12/2017 9:48a [facility] Radha Patrick, J44.9 Chronic M.D. obstructive pulmonary disease, unspecified F17.201 Nicotine dependence, unspecified, in remission I10 Essential (primary) hypertension I82.409 Acute embolism and thombos unsp deep vn unsp lower extremity F31.9 Bipolar disorder, unspecified Office Visit 06/06/2017 [facility] Radha Nguyen, J44.1 Chronic 8:32p Assoccollin M.D. obstructive Hospitalists pulmonary disease w (acute) exacerbation E78.5 Hyperlipidemia, unspecified F31.9 Bipolar disorder, unspecified Office Visit 06/06/2017 8:44a [facility] Joanna J44.1 [facility] Keena obstructive [employer] Machine Backtender pulmonary disease w (acute) exacerbation F17.210 Nicotine dependence, cigarettes, uncomplicated Office Visit 06/04/2017 11:20a [facility] J44.1 [facility] Ke[place] obstructive [employer] Machine Backtender pulmonary disease w (acute) exacerbation J40 Bronchitis, not specified as acute or chronic F17.210 Nicotine dependence, cigarettes, uncomplicated Office Visit 06/04/2017 8:31p [facility] Niya J44.1 Chronic Assoc,collin Martinez M.D. obstructive Hospitalists pulmonary disease w (acute) exacerbation F31.9 Bipolar disorder, unspecified E78.5 Hyperlipidemia, unspecified Office Visit 06/03/2017 [facility] Jose L J44.1 Chronic 8:31p Assoc,pc MD Asif obstructive Hospitalists pulmonary disease w (acute) exacerbation E78.5 Hyperlipidemia, unspecified F31.9 Bipolar disorder, unspecified I10 Essential (primary) hypertension Office Visit 06/02/2017 [facility] Star Hugo J44.1 Chronic 8:30p Assoccollin II, M.D. obstructive Hospitalists pulmonary disease w (acute) exacerbation E78.5 Hyperlipidemia, unspecified F31.9 Bipolar disorder, unspecified I10 Essential (primary) hypertension Office Visit 05/28/2017 9:52a [facility] Niya R00.1 Bradycardia, Assoc,collin Martinez M.D. unspecified Hospitalists J96.11 Chronic respiratory failure with hypoxia J44.1 Chronic obstructive pulmonary disease w (acute) exacerbation J96.12 Chronic respiratory failure with hypercapnia Office Visit 05/27/2017 9:52a [facility] Niya R07.1 Chest pain on Assoc,collin Martinez M.D. breathing Hospitalists J96.11 Chronic respiratory failure with hypoxia J44.1 Chronic obstructive pulmonary disease w (acute) exacerbation J96.12 Chronic respiratory failure with hypercapnia Office Visit 05/26/2017 9:51a [facility] Niya R07.1 Chest pain on Assoc,collin Martinez M.D. breathing Hospitalists J96.11 Chronic respiratory failure with hypoxia J44.1 Chronic obstructive pulmonary disease w (acute) exacerbation J96.12 Chronic respiratory failure with hypercapnia Office Visit 05/25/2017 9:51a [facility] Kenia R07.1 Chest pain on Assoc,pc DO Jannet breathing Hospitalists J44.1 Chronic obstructive pulmonary disease w (acute) exacerbation J96.11 Chronic respiratory failure with hypoxia J96.12 Chronic respiratory failure with hypercapnia Office Visit 05/24/2017 2:19p [facility] Radha Nguyen, R07.2 Precordial pain Assoc,collin Walden Hospitalists J44.1 Chronic obstructive pulmonary disease w (acute) exacerbation E78.5 Hyperlipidemia, unspecified I10 Essential (primary) hypertension Office Visit 05/23/2017 2:19p [facility] Radha Nguyen, R07.2 Precordial pain Assoc,collin Walden Hospitalists J44.1 Chronic obstructive pulmonary disease w (acute) exacerbation E78.5 Hyperlipidemia, unspecified I10 Essential (primary) hypertension Office Visit 05/22/2017 2:18p [facility] Radha Nguyen, R07.2 Precordial pain Assoc,collin Walden Hospitalists J44.1 Chronic obstructive pulmonary disease w (acute) exacerbation E78.5 Hyperlipidemia, unspecified I10 Essential (primary) hypertension Office Visit 05/21/2017 [facility] Star Hugo R07.2 Precordial pain 2:18p Assoc,pc Win AVITIA Hospitalists J44.1 Chronic obstructive pulmonary disease w (acute) exacerbation E78.5 Hyperlipidemia, unspecified I10 Essential (primary) hypertension Office Visit 05/17/2017 8:10a [facility] Niya R07.9 Chest pain, Assoc,Shimon MedinaD. unspecified Hospitalists J44.1 Chronic obstructive pulmonary disease w (acute) exacerbation Z72.0 Tobacco use Office Visit 05/16/2017 8:09a [facility] Niya R07.9 Chest pain, Assoccollin M.D. unspecified Hospitalists J44.1 Chronic obstructive pulmonary disease w (acute) exacerbation Z72.0 Tobacco use Office Visit 05/15/2017 8:09a [facility] Niya R07.9 Chest pain, Assoc,collin Martinez M.D. unspecified Hospitalists J44.1 Chronic obstructive pulmonary disease w (acute) exacerbation Z72.0 Tobacco use Office Visit 05/14/2017 8:08a [facility] Niya R07.9 Chest pain, Assoc,collin Martinez M.D. unspecified Hospitalists J44.1 Chronic obstructive pulmonary disease w (acute) exacerbation Z72.0 Tobacco use Office Visit 05/04/2017 9:17a [facility] Ian Newsome J44.1 Chronic Asscollin harkins M.D. obstructive Hospitalists pulmonary disease w (acute) exacerbation E78.00 Pure hypercholesterolemia, unspecified I10 Essential (primary) hypertension Z86.718 Personal history of other venous thrombosis and embolism Office Visit 05/03/2017 9:16a [facility] Sunny J44.1 Chronic Assoccollin M.D. obstructive Hospitalists pulmonary disease w (acute) exacerbation E78.00 Pure hypercholesterolemia, unspecified I10 Essential (primary) hypertension Z86.718 Personal history of other venous thrombosis and embolism Office Visit 05/01/2017 9:15a [facility] Graham J44.1 Chronic Assoc,FIONA Burleson obstructive Hospitalists pulmonary disease w (acute) exacerbation E78.00 Pure hypercholesterolemia, unspecified Z86.718 Personal history of other venous thrombosis and embolism I10 Essential (primary) hypertension Office Visit 02/19/2017 [facility] Kirsten Ortiz J44.1 Chronic 1:08p Assoc,collin Peralta, DAHIANA obstructive Hospitalists pulmonary disease w (acute) exacerbation R79.1 Abnormal coagulation profile R07.9 Chest pain, unspecified I10 Essential (primary) hypertension Office Visit 02/18/2017 [facility] Kirsten Ortiz J44.1 Chronic 1:07p Assoc,pc Peralta, VICE PRESIDENT OF OPERATIONS obstructive Hospitalists pulmonary disease w (acute) exacerbation R79.1 Abnormal coagulation profile R07.9 Chest pain, unspecified Office Visit 02/17/2017 [facility] J44.1 Chronic 1:07p collin Parks NP obstructive Hospitalists pulmonary disease w (acute) exacerbation R79.1 Abnormal coagulation profile R07.9 Chest pain, unspecified Office Visit 01/26/2017 12:25p [facility] Yaneli Augustin J44.1 Chronic Assoc,collin N.P. obstructive Hospitalists pulmonary disease w (acute) exacerbation E78.5 Hyperlipidemia, unspecified F31.9 Bipolar disorder, unspecified I10 Essential (primary) hypertension Office Visit 01/25/2017 12:25p [facility] Yaneli Augustin J44.1 Chronic Assoc,collin N.P. obstructive Hospitalists pulmonary disease w (acute) exacerbation E78.5 Hyperlipidemia, unspecified F31.9 Bipolar disorder, unspecified I10 Essential (primary) hypertension Office Visit 01/24/2017 [facility] Star Hugo J44.1 Chronic 12:24p collin Parks II, M.D. obstructive Hospitalists pulmonary disease w (acute) exacerbation E78.5 Hyperlipidemia, unspecified F31.9 Bipolar disorder, unspecified I10 Essential (primary) hypertension Office Visit 04/04/2016 [facility]1 Orthostatic 9:16a collin Parks NP hypotension Hospitalists J44.9 Chronic obstructive pulmonary disease, unspecified I10 Essential (primary) hypertension Office Visit 02/22/2016 [facility] Joyce Paul44.1 Chronic 10:10a collin Parks M.D. obstructive Hospitalists pulmonary disease w (acute) exacerbation I10 Essential (primary) hypertension F25.0 Schizoaffective disorder, bipolar type Office Visit 02/21/2016 [facility] Joyce Paul44.1 Chronic 10:09a collin Parks M.D. obstructive Hospitalists pulmonary disease w (acute) exacerbation I10 Essential (primary) hypertension F25.0 Schizoaffective disorder, bipolar type Office Visit 02/20/2016 [facility] Joyce Paul44.1 Chronic 10:09a collin Parks M.D. obstructive Hospitalists pulmonary disease w (acute) exacerbation I10 Essential (primary) hypertension F25.0 Schizoaffective disorder, bipolar type Office Visit 01/20/2016 3:46p [facility] Mario S. R07.9 Chest pain , Of [employer] Backtender Freddy, DO unspecified FACC R06.02 Shortness of breath Office Visit 01/20/2016 [facility] R06.00 Dyspnea, 2:58p Assoc,collin Nation, VICE PRESIDENT OF OPERATIONS unspecified Hospitalists J45.901 Unspecified asthma with (acute) exacerbation J44.9 Chronic obstructive pulmonary disease, unspecified R00.0 Tachycardia, unspecified Office Visit 01/19/2016 [facility] R06.00 Dyspnea, 2:58p Assoc,collin Nation, VICE PRESIDENT OF OPERATIONS unspecified Hospitalists J45.901 Unspecified asthma with (acute) exacerbation J44.9 Chronic obstructive pulmonary disease, unspecified R00.0 Tachycardia, unspecified Office Visit 01/10/2016 [facility] Radhanivia Nguyen, R07.9 Chest pain, 9:34a Assoccollin M.D. unspecified Hospitalists J44.9 Chronic obstructive pulmonary disease, unspecified I10 Essential (primary) hypertension Office Visit 01/08/2016 [facility] Bryce R07.9 Chest pain, 9:32a Assoc,collin Whittington, N.P. unspecified Hospitalists J44.9 Chronic obstructive pulmonary disease, unspecified I10 Essential (primary) hypertension Office Visit 01/05/2016 10:31a [facility] Yaneli Augustin, J44.1 Chronic Assoc,collin N.PPhil obstructive Hospitalists pulmonary disease w (acute) exacerbation E78.0 Pure hypercholesterolemia K21.9 Gastro-esophageal reflux disease without esophagitis I10 Essential (primary) hypertension Office Visit 01/04/2016 [facility] Star Hugo J44.1 Chronic 10:30a Assoc,collin AVITIA M.D. obstructive Hospitalists pulmonary disease w (acute) exacerbation E78.0 Pure hypercholesterolemia K21.9 Gastro-esophageal reflux disease without esophagitis I10 Essential (primary) hypertension Office Visit 01/01/2016 10:19a [facility] Gauri J44.1 Chronic Assoc,pc Zehra Waldrop obstructive Hospitalists pulmonary disease w (acute) exacerbation F31.9 Bipolar disorder, unspecified Z71.6 Tobacco abuse counseling I10 Essential (primary) hypertension Office Visit 12/31/2015 10:19a [facility] Gauri J44.1 Chronic Assoc,collin Waldrop D.O. obstructive Hospitalists pulmonary disease w (acute) exacerbation F31.9 Bipolar disorder, unspecified Z71.6 Tobacco abuse counseling I10 Essential (primary) hypertension Office Visit 12/30/2015 [facility] Kirsten Ortiz J44.1 Chronic 10:18a Assoc,collin Peralta NP obstructive Hospitalists pulmonary disease w (acute) exacerbation J44.1 Chronic obstructive pulmonary disease w (acute) exacerbation I10 Essential (primary) hypertension Z71.6 Tobacco abuse counseling Office Visit 12/29/2015 [facility] Kesha R07.9 Chest pain, 2:33p Assoc,collin Nation NP unspecified Hospitalists J44.9 Chronic obstructive pulmonary disease, unspecified I10 Essential (primary) hypertension Office Visit 10/03/2015 11:02a [facility] Jose L R09.81 Nasal congestion Assoc,collin Gold MD Hospitalists R45.851 Suicidal ideations J44.9 Chronic obstructive pulmonary disease, unspecified Office Visit 10/01/2015 11:01a [facility] Jose L J44.9 Chronic Assoc,collin Gold MD obstructive Hospitalists pulmonary disease, unspecified R09.81 Nasal congestion R45.851 Suicidal ideations Office Visit 09/30/2015 11:00a [facility] Jose L J44.9 Chronic Assoc,collin Gold MD obstructive Hospitalists pulmonary disease, unspecified R09.81 Nasal congestion R45.851 Suicidal ideations Office Visit 09/19/2015 [facility] Jose L J44.1 Chronic 10:37a Assoc,collin Gold MD obstructive Hospitalists pulmonary disease w (acute) exacerbation Z72.0 Tobacco use I82.402 Acute embolism and thombos unsp deep veins of l low extrem I10 Essential (primary) hypertension Office Visit 09/18/2015 [facility] Jose L J44.1 Chronic 10:36a Assoc,collin Gold MD obstructive Hospitalists pulmonary disease w (acute) exacerbation Z72.0 Tobacco use I82.402 Acute embolism and thombos unsp deep veins of l low extrem I10 Essential (primary) hypertension Office Visit 09/17/2015 10:36a [facility] Ian Newsome, J44.1 Chronic Assoc,collin Walden obstructive Hospitalists pulmonary disease w (acute) exacerbation I10 Essential (primary) hypertension Z72.0 Tobacco use I82.402 Acute embolism and thombos unsp deep veins of l low extrem Office Visit 08/23/2015 8:53a [facility] Yaneli Augustin, I63.9 Cerebral Assoc,pc N.P. 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 Obstruction Hospitalists Chronic Not Class Elsewhere 311 Depressive Disorder Not Elsewhere Spec 295.90 Schizophrenia Unspec Office Visit 06/02/2015 [facility] Star Hugo 496 COPD Airway 11:34a Assoc,collin AVITIA M.D. Obstruction Hospitalists Chronic Not Class Elsewhere 311 Depressive Disorder Not Elsewhere Spec 295.90 Schizophrenia Unspec Office Visit 10/31/2012 2:57p [facility] Mau Neff 518.84 Respiratory Assoc,collin Nowak Failure Acute & Hospitalists M.DPhil Chronic 491.21 Bronchitis Obstructive Chronic W/Acute Exacerbation 786.52 Painful Respiration Office Visit 10/30/2012 10:33a [facility] Mau Neff 518.84 Respiratory Assoc,Nirmal Welch Acute & Hospitalists M.DPhil Chronic 491.21 Bronchitis Obstructive Chronic W/Acute Exacerbation 786.52 Painful Respiration Office Visit 10/29/2012 2:56p [facility] Amairani 518.84 Respiratory Assoc,pc DO Matteo Failure Acute & Hospitalists Chronic 491.21 Bronchitis Obstructive Chronic W/Acute Exacerbation 786.52 Painful Respiration Office Visit 03/19/2010 [facility], 453.40 Acute Venous Embolism 1:00a collin Parks M.D. & Thrombosis,Unspec Hospitalists Deep Vessels Lower 285.9 Anemia Unspec Office Visit 03/18/2010 [facility], 453.40 Acute Venous Embolism 1:00a collin Parks M.D. & Thrombosis,Unspec Hospitalists Deep Vessels Lower Office Visit 03/17/2010 [facility], 453.40 Acute Venous Embolism 1:00a collin Parks M.D. & Thrombosis,Unspec Hospitalists Deep Vessels Lower 296.80 Bipolar Disorder NOS Office Visit 03/16/2010 [facility], 453.40 Acute Venous Embolism 1:00a collin Parks M.D. & Thrombosis,Unspec Hospitalists Deep Vessels Lower 496 COPD Airway Obstruction Chronic Not Class Elsewhere 296.80 Bipolar Disorder NOS Office Visit 03/15/2010 [facility], 453.40 Acute Venous Embolism 2:00a collin Parks M.D. & Thrombosis,Unspec Hospitalists Deep Vessels Lower 285.9 Anemia Unspec Office Visit 03/14/2010 [facility] 453.40 Acute Venous Embolism 1:45a collin Parks M.D. & Thrombosis,Unspec Hospitalists Deep Vessels Lower 289.82 hypercoagulable state other Office Visit 03/13/2010 1:30a [facility] Ella, 296.80 Bipolar collin Parks M.D. Disorder NOS Hospitalists 295.90 Schizophrenia Unspec 453.40 Acute Venous Embolism & Thrombosis,Unspec Deep Vessels Lower Office Visit 03/12/2010 1:30a [facility] Ella, 296.80 Bipolar collin Parks M.D. Disorder NOS Hospitalists 295.90 Schizophrenia Unspec 453.40 Acute Venous Embolism & Thrombosis,Unspec Deep Vessels Lower Office 03/11/2010 [facility] 453.40 Acute Venous Embolism Visit 1:00a collin Parks M.D. & Thrombosis,Unspec Hospitalists Deep Vessels Lower 296.80 Bipolar Disorder NOS 295.90 Schizophrenia Unspec 443.9 Peripheral Vascular Disease Unspec Office 03/10/2010 [facility] 453.40 Acute Venous Embolism Visit 1:45a collin Parks M.D. & Thrombosis,Unspec Hospitalists Deep Vessels Lower 295.90 Schizophrenia Unspec 296.80 Bipolar Disorder NOS 443.9 Peripheral Vascular Disease Unspec Office 03/09/2010 [facility] Constance 453.40 Acute Venous Embolism Visit 1:00a collin Parks M.D. & Thrombosis,Unspec Hospitalists Deep Vessels Lower Office 03/03/2010 [facility] Pavan Cotto, 977.9 Poisoning By Visit 1:00a collin Parks M.D. Medicinal Substance Hospitalists Unspec 296.80 Bipolar Disorder NOS 496 COPD Airway Obstruction Chronic Not Class Elsewhere Office Visit 03/02/2010 3:15a [facility] Sunny 977.9 Poisoning By Asscollin harkins M.D. Medicinal Hospitalists Substance Unspec Office Visit 01/06/2010 1:45a [facility] 496 COPD Airway collin Parks M.D. Obstruction Hospitalists Chronic Not Class Elsewhere 486 Pneumonia Organism Unspec 599.0 UTI Urinary Tract Infection Site Not Spec Office Visit 01/05/2010 1:15a [facility] 496 COPD Airway Asscollin harkins M.D. Obstruction Hospitalists Chronic Not Class Elsewhere 599.0 UTI Urinary Tract Infection Site Not Spec 296.80 Bipolar Disorder NOS Office Visit 01/04/2010 [place] [address] COPD Airway 12:30a collin Parks M.D. Obstruction Hospitalists Chronic Not Class Elsewhere Office Visit 01/03/2010 [place] [address] COPD Airway 12:30a collin Parks M.D. Obstruction Hospitalists Chronic Not Class Elsewhere Office Visit 01/02/2010 [place] [address] COPD Airway 12:30a collin Parks M.D. Obstruction Hospitalists Chronic Not Class Elsewhere Office Visit 01/01/2010 [place] [address] COPD Airway 12:30a collin Parks M.D. Obstruction Hospitalists Chronic Not Class Elsewhere Office Visit 12/31/2009 [place] [address] COPD Airway 12:30a collin Parks M.D. Obstruction Hospitalists Chronic Not Class Elsewhere Office Visit 12/30/2009 [place] [address] COPD Airway 12:30a collin Parks M.D. Obstruction Hospitalists Chronic Not Class Elsewhere Office Visit 12/29/2009 [facility] Vernon Galeas, 518.81 Respiratory 12:15a Assoc,pc D.O. Failure Acute Hospitalists 496 COPD Airway Obstruction Chronic Not Class Elsewhere 296.80 Bipolar Disorder NOS 288.66 Bandemia 287.5 Thrombocytopenia Unspec 433.9 Pepipheral Vascular Disease Office Visit 12/28/2009 1:15a [facility] Patrick, 496 COPD Airway Assoc,pc M.D. Obstruction Hospitalists Chronic Not Class Elsewhere 786.09 Dyspnea & Respiratory Abnormalities Other Plan of Treatment No Information Available
[2018-08-30] MEDS ORDERED: methylPREDNISolone 125 MG* 2 ML VIAL IV ONE (09:59)
[2018-08-30] MEDS ORDERED: Magnesium Sulfate 2 GM IV* 2 GM/50 ML BAG IVPB ONE (11:38)
[2018-08-30] MEDS ORDERED: Ondansetron INJ* 2 MG/ML VIAL IV PRN (12:09)
[2018-08-30] MEDS ORDERED: Acetaminophen TAB* 325 MG PO PRN (12:09)
[2018-08-30] MEDS ORDERED: Albuterol 2.5 MG/3 ML NEB.SOL* (0.083%) INH PRN ×2 (12:09→12:15)
[2018-08-30] MEDS ORDERED: ALPRAZolam TAB* 0.25 MG PO PRN (12:15)
[2018-08-30 13:36] LABS: Urine Appearance Clear; Urine Bacteria Absent (Absent); Urine Bilirubin Negative (Negative); Urine Blood 2+ (Negative); Urine Color Yellow; Urine Glucose Negative (Negative); Urine Ketones Negative (Negative); Urine Nitrite Negative (Negative); Urine Protein Negative (Negative); Urine Red Blood Cell Trace(0-2/hpf) (Absent); Urine Specific Gravity 1.006 (1.010-1.030); Urine Urobilinogen Negative (Negative); Urine White Blood Cell Trace(0-5/hpf) (Absent)
[2018-08-30] MEDS: Warfarin TAB(*) 1 MG PO SCH (16:40)
[2018-08-30] MEDS: Atorvastatin* 10 MG TAB PO SCH (16:40)
[2018-08-30] MEDS ORDERED: Mouth Piece, Nicotine* 1 EACH CARTRIDGE INH ONE (18:00)
[2018-08-30] MEDS: Nicotine Inhaler* 10 MG AMP INH PRN (18:00)
--- NOTE | 2018-08-30 18:23 | ECHO ---
Patient: DONNY PARTIDA [facility] Rec#: [id number] : 1955 Date: 08/30/2018 Age: 62y Height: 160 cm / 63.0 in Weight: 75.75 kg / 167.0 lbs Sex: F BSA: 1.79 Room#: 451 Admit Date#: 08/30/2018 Type: Inpatient Referring: Crystal Marcano Reading: Enrique Livingston MD Physician Coding Specialist: Kirsten Wheeler RDCS CC: Tom Schraedr MD Transthoracic Echocardiogram Indication: Chest pain BP: 115/57 HR: 89 Rhythm: NSR Findings History: COPD, smoker, DVT, HLD, PVD, HTN. Technical Comments: The study quality is fair. Completed at 1615. Left Ventricle: The left ventricular chamber size is normal. Mild concentric left ventricular hypertrophy is observed. There is a prominent septal knuckle. Global left ventricular wall motion and contractility are within normal limits. The left ventricle appears hyperdynamic. The estimated ejection fraction is greater than 65%. Abnormal left ventricular diastolic function is observed. Abnormal left ventricular diastolic filling is observed, consistent with impaired relaxation. Left Atrium: The left atrial chamber size is normal. Right Ventricle: The right ventricle wall thickness is mildly increased. The right ventricle is mildly dilated. The right ventricular global systolic function is normal. Right Atrium: The right atrial cavity size is normal. Aortic Valve: The aortic valve is trileaflet. The aortic valve leaflets are mildly thickened. There is moderate aortic regurgitation. There is no evidence of aortic stenosis. The mean gradient of the aortic valve is 7 mmHg. The peak instantaneous gradient of the aortic valve is 17 mmHg. The measured aortic regurgitation pressure half-time is 292 msec. Mitral Valve: There is mitral annular calcification.with restriction of the posterior leaflet. The mitral valve leaflets are mildly thickened. There is trace to mild mitral regurgitation. There is no evidence of mitral stenosis. Tricuspid Valve: The tricuspid valve leaflets are normal. There is trace tricuspid regurgitation. Unable to estimate the right ventricular systolic pressure. There is no tricuspid stenosis. Pulmonic Valve: The pulmonic valve appears normal. There is a trace pulmonic regurgitation. There is no pulmonic stenosis. Pericardium: There is no significant pericardial effusion. Aorta: There is no dilatation of the ascending aorta. There is no dilatation of the aortic arch. The aortic root is normal in size. Pulmonary Artery: The main pulmonary artery appears normal. Venous: The inferior vena cava appears normal in size. There is less than 50% respiratory change in the inferior vena cava dimension. Conclusions Mild concentric left ventricular hypertrophy is observed. The left ventricle appears hyperdynamic. The estimated ejection fraction is greater than 65%. Abnormal left ventricular diastolic filling is observed, consistent with impaired relaxation. The right ventricle wall thickness is mildly increased. The right ventricle is mildly dilated. There is moderate aortic regurgitation. There is mitral annular calcification with restriction of the posterior leaflet. There is trace to mild mitral regurgitation. Similar to 12/2015. Consider further evaluation of the Aortic regurgitation with REKHA if clinically indicated. Measurements Name Value Normal Range RVIDd (AP) 2D 3.3 cm (0.9 - 2.6) RVDdMajor (2D) 4.3 cm (2.2 - 4.4) RAd ISD 4CH 4.2 cm (3.4 - 4.9) RA (A4C)W 3.7 cm (2.9 - 4.6) IVSd (2D) 1.1 cm (0.6 - 1) LVPWd (2D) 1.1 cm (0.6 - 1) LVIDd (2D) 4.6 cm (3.6 - 5.4) LVIDs (2D) 3.7 cm - LV FS (2D) 19 % (25 - 45) Aortic Annulus 1.8 cm (1.4 - 2.6) Ao root diameter (2D) 2.6 cm (2.1 - 3.5) Ascending Ao 2.8 cm (2.1 - 3.4) Aortic arch 2.4 cm (1.8 - 3.4) LA dimension (AP) 2D 3.5 cm (2.3 - 3.8) LAd ISD 4CH 4.8 cm (2.9 - 5.3) LA ISD 4CH W 4.5 cm (2.5 - 4.5) Name Value Normal Range LA ESV BP (A/L) index 34 ml/m2 - Name Value Normal Range MV E-wave Vmax 1.1 m/sec - MV deceleration time 215 msec - MV A-wave Vmax 1.5 m/sec - MV E:A ratio 0.7 ratio - LV septal e' Vmax 0.07 m/sec - LV lateral e' Vmax 0.07 m/sec - LV E:e' septal ratio 15.7 ratio - LV E:e' lateral ratio 15.7 ratio - Name Value Normal Range AV Vmax 2.1 m/sec - AV VTI 38 cm - AV peak gradient 17 mmHg - AV mean gradient 7 mmHg - LVOT Vmax 1.4 m/sec - LVOT VTI 25 cm - LVOT peak gradient 8 mmHg - LVOT mean gradient 3 mmHg - DOI (VTI) 0.66 ratio - AR PHT 292 msec - CHET Vmax 1.1 m/sec - Name Value Normal Range IVC diameter 1.8 cm - Name Value Normal Range PV Vmax 1.4 m/sec - PV peak gradient 8 mmHg -
[2018-08-30] MEDS: Gabapentin CAP(*) 400 MG PO SCH (20:50)
[2018-08-30] MEDS: DOXYcycline CAP(*) 100 MG PO SCH (20:50)
[2018-08-30] MEDS: Mirtazapine TAB* 15 MG PO SCH (20:50)
[2018-08-30] MEDS: Lithium Carbonate TAB* 300 MG PO SCH (20:50)
[2018-08-30] MEDS: Metoprolol Tartrate TAB* 25 MG PO SCH (20:52)
[2018-08-30] MEDS ORDERED: Gabapentin CAP(*) 400 MG PO SCH (21:00)
--- NOTE | 2018-08-30 21:02 | HP ---
HISTORY AND PHYSICAL: DATE OF ADMISSION: 08/30/18 PROVIDER: Crystal Marcano NP. PRIMARY CARE PROVIDER: Dr. Schrader. ATTENDING PROVIDER: Dr. Waldrop * (DICTATED BY CRYSTAL MARCANO NP) CHIEF COMPLAINT: 1. Shortness of breath. 2. Chest pain. HISTORY OF PRESENT ILLNESS: Ms. Camejo is a 62-year-old female with past medical history significant for COPD, chronic hypoxic respiratory failure, hypertension, coronary artery disease , peripheral vascular disease, hypertension, hyperlipidemia, schizophrenia, bipolar, anxiety, depression, history of DVT, on chronic warfarin, and mitral regurg, who presented to the emergency room with complaints of progressively worsening shortness of breath and chest pain. The patient reports that she woke at approximately 4 a.m. this morning with chest pain and shortness of breath. She does report that she has had increased cough and congestion x2 to 3 days. She also reports that she was recently started on doxycycline approximately 2 days ago for her increased cough and congestion. The patient reports that she has chest pain that is worse with deep breath, cough, and movement, reproducible with palpation. She rates her pain as 3 to 4 in the substernal area. At the time of evaluation in the emergency room, the patient reports that her chest pain is now resolved. She reports that she had chest pain yesterday less than a few minutes. They lasted approximately 1 hour. She denies any increased secretions. She does report increased cough and shortness of breath. She denies any fever or chills. She denies any nausea, vomiting or diarrhea. Denies any gross hematuria or dysuria. Denies any recent sick contacts. Denies any dysphagia, arthralgias, myalgias, rashes, lesions, psychosis or anxiety. While in the emergency room, the patient was given Solu-Medrol, morphine, and albuterol neb. The patient does report that her chest pain and shortness of breath resolved after her treatments in the emergency room. Due to the concern of her chest pain and shortness of breath, we were asked to see and evaluate her for admission. PAST MEDICAL HISTORY: 1. COPD. 2. Chronic hypoxic respiratory failure, requiring 2 L of oxygen at nighttime. 3. Hypertension. 4. Peripheral vascular disease. 5. Coronary artery disease. 6. Hyperlipidemia. 7. Schizophrenia. 8. Bipolar. 9. Anxiety. 10. Depression. 11. History of DVT, on chronic warfarin. 12. Mitral regurgitation. PAST SURGICAL HISTORY: 1. Appendectomy. 2. Hernia repair x2. 3. Right lower extremity stent. 4. Cholecystectomy. HOME MEDICATIONS: 1. Amlodipine 10 mg p.o. daily. 2. Olanzapine 10 mg p.o. daily. 3. Isosorbide mononitrate ER 30 mg p.o. daily. 4. Gabapentin 400 mg p.o. b.i.d. 5. Warfarin 4.5 mg p.o. daily. 6. Incruse Ellipta 62.5 mcg inhaled daily. 7. Singulair 10 mg p.o. daily. 8. Mirtazapine 15 mg at bedtime. 9. Metoprolol tartrate 25 mg p.o. b.i.d. 10. [place] carbonate 300 mg p.o. b.i.d. 11. Breo Ellipta 1 puff inhaled daily. 12. Nexium 40 mg p.o. daily. 13. Atorvastatin 10 mg p.o. daily. 14. Albuterol inhaler 2 puffs q.4 hours as needed. 15. Albuterol nebulizer 2.5 mg every 2 hours as needed for shortness of breath and wheezing. 16. Alprazolam 0.25 q.6 hours as needed for anxiety. ALLERGIES: 1. BUPROPION. 2. CEPHALOSPORINS. 3. ERYTHROMYCIN. 4. PENICILLINS. 5. TOBRAMYCIN. 6. CHLORPROETHAZINE. FAMILY HISTORY: Mother secondary to COPD. Father secondary to an ID. No reported history of diabetes or cancer within the family. SOCIAL HISTORY: The patient currently smokes 1 pack a day for over 40 years. She does report rare alcohol use. She is disabled. She lives alone. Surrogate decision maker in the event she is unable to make her own decisions is her friend, Crystal Vallejo, her phone number is [phone]. She is a full code. REVIEW OF SYSTEMS: There is no documented fever. No unintended weight loss. She does report chest pain, worse with deep breath, cough, and movement. Denies any edema. Does report cough. Denies any hemoptysis. She does report increased shortness of breath. She denies any nausea, vomiting or diarrhea. Denies any abdominal pain. Denies any gross hematuria or dysuria. Denies any focal weakness or sensory loss. Denies any visual complaints, dysphagia, arthralgias, myalgias, rashes, lesions, psychosis or anxiety. PHYSICAL EXAMINATION GENERAL: At this time, Ms. Camejo is alert and oriented, sitting on the stretcher in the emergency room. She does not appear to be in any acute distress. HEENT: Head is atraumatic, normocephalic. Eyes: EOMs are intact. Sclerae anicteric and not pale. Oral mucosa appeared to be moist. NECK: Supple. LUNGS: Lungs are diminished throughout bilaterally with few scattered expiratory wheezes. CARDIAC: S1, S2. Regular rate and rhythm. No murmurs, rubs or gallops. ABDOMEN: Soft and nontender. Bowel sounds are present x4. EXTREMITIES: Pedal pulses are +2 bilaterally. She is able to move all 4 extremities with 5/5 strength. NEUROLOGIC: She is awake, alert, oriented x3. Speech is clear. Thought process is intact. There is no gross focal deficits. SKIN: Intact. DIAGNOSTIC STUDIES/LAB DATA: WBCs are 5.5, RBCs 3.93, hemoglobin 11.1, hematocrit was 34, platelet count was 126. INR of 1.97. ABG, pH was 7.31, pCO2 was 55, HCO3 was 25.1, ABG 98.4, FiO2 was 32. Sodium 143, potassium 4.5, chloride 112, carbon dioxide was 30, anion gap was 1, BUN was 9, creatinine 0.74 , glucose was 91. Lactic acid was 0.7. Calcium was 8.6. Magnesium 1.5. Total bili was 0.20, ASTs were 9, ALTs were 7, alkaline phosphatase was 95. Troponin was 0.0 x2. BNP was 46. TSH was 1.46. Urine is yellow, clear; pH was 6.0; specific gravity 1.006. Urine protein and ketones were negative. Urine blood was 2+. Urine nitrites were negative. Bilirubin was negative. Urobilinogen was negative. Urine leukocyte esterase was negative. Urine wbc's were trace, rbc's were trace. Squamous epithelial cells are present. Urine bacteria was absent. Urine glucose was negative. Chest x-ray, radiologist's impression: No acute cardiopulmonary disease. ASSESSMENT AND PLAN: Ms. Camejo is a 62-year-old female with the past medical history significant for coronary artery disease, hyperlipidemia, hypertension, peripheral vascular disease, chronic obstructive pulmonary disease , chronic hypoxic respiratory failure requiring 2 L of oxygen, schizophrenia, bipolar, anxiety, depression, history of deep vein thrombosis, on warfarin, who presented to emergency room with complaints of chest pain and shortness of breath. Due to her chest pain and shortness of breath, we were asked to see and evaluate her for admission. She will be admitted inpatient for: 1. Chest pain. I suspect that her current chest pain is related to musculoskeletal, as it is reproducible with cough, deep breath, and movement as well as palpation, but given her history of coronary artery disease, hypertension, hyperlipidemia, she does have significant risk factors for acute coronary artery disease. Her EMMANUEL score is 3 given her a 13% risk at 14-day all -cause mortality, new or recurrent myocardial infarctions, or severe recurrent ischemia requiring urgent revascularization. Given this, we will continue to trend her troponins, we will repeat an EKG in the morning. The patient has not had a stress test since 2016. I will order an echocardiogram. I will order a transthoracic echocardiogram as well to rule out any abnormality. She will continue on Imdur, Lopressor, and atorvastatin as previously prescribed. 2. Chronic hypoxic respiratory failure. We will continue on her nebulizers and inhalers as previously prescribed. 3. Chronic obstructive pulmonary disease. I suspect she has an acute exacerbation of chronic obstructive pulmonary disease. She was recently started on doxycycline 100 mg p.o. b.i.d. We will continue doxycycline during this admission. I will continue her nebulizer inhalers as previously prescribed. She does not have significant wheezing at this time. I will hold off on steroids at this time. Given this is her second admission with the shortness of breath and chest pain and she does have increased cough and suspect chronic obstructive pulmonary disease exacerbation, I will place her on prednisone 40 mg p.o. daily for 5 days along with doxycycline 100 mg p.o. b.i.d. 4. Hypomagnesia. Her magnesium level is 1.5 on admission. She just received 2 g of magnesium in the emergency room and we will repeat mag level in the morning. 5. History of deep vein thrombosis. We will continue on Coumadin at 4.5 mg p.o. daily. 6. Hypertension. She will continue on amlodipine 10 mg p.o. daily. 7. Bipolar and schizophrenia. She will continue her Zyprexa at 15 mg at night and lithium 300 mg p.o. b.i.d. and alprazolam 0.25 mg q.6 hours as needed for anxiety. 8. Hyperlipidemia. She will continue her atorvastatin 10 mg p.o. daily. 9. FEN. I will place her on heart healthy, decaf okay diet. 10. Code status. She is a full code. 11. DVT prophylaxis. We will continue on Coumadin at 4.5 mg p.o. daily. 12. Disposition. She will be placed as an inpatient. TIME SPENT: Time spent on this admission was approximately 60 minutes, greater than half that time was spent [id number] with the patient obtaining my history and physical, the other half the time was spent going over my plan of care and implementing my plan of care. I have discussed with my attending, Dr. Gauri Waldrop, she is in agreement with my plan. CRYSTAL MARCANO, PERINATAL BREASTFEEDING ASSISTANT [id number]/CPS #: [id number]
[2018-08-31 06:09] LABS: ABS Basophils 0 10^3/ul (0-0.2); ABS Eosinophils 0 10^3/ul (0-0.6); ABS Lymphocytes 0.7 10^3/ul (1.0-4.8); ABS Monocytes 0.4 10^3/ul (0-0.8); ABS Neutrophils 5.3 10^3/ul (1.5-7.7); ABS Nucleated RBC 0 10^3/ul; Eosinophil % 0.1 %; Hematocrit 37 % (35-47); Hemoglobin 11.9 g/dl (12.0-16.0); Lymphocyte % 10.4 %; Mean Corpuscular HGB Conc 32 g/dl (31-36); Mean Corpuscular Hemoglobin 28 pg (27-31); Mean Corpuscular Volume 86 fL (80-97); Mean Platelet Volume 8.4 fL (7.4-10.4); Nucleated Red Blood Cells % 0; Platelet Count 154 10^3/ul (150-450); Red Cell Distribution Width 15 % (10.5-15); White Blood Count 6.4 10^3/ul (3.5-10.8)
[2018-08-31 06:12] LABS: INR 2.11 (0.77-1.02)
[2018-08-31 06:26] LABS: BUN/Creatinine Ratio 18.6 (8-20); Calcium 9.9 mg/dL (8.6-10.3); EGFR Non-African American 85.4 (>60); HDL Cholesterol 40.6 mg/dL; Magnesium 1.8 mg/dL (1.9-2.7); Potassium 4.9 mmol/L (3.5-5.0)
[2018-08-31] MEDS ORDERED: Magnesium Sulfate 2 GM IV* 2 GM/50 ML BAG IVPB ONE (07:45)
[2018-08-31] MEDS: Omeprazole CAP* 20 MG PO SCH (08:14)
[2018-08-31] MEDS: Umeclidinium 62.5 MDI(NF) MDI INH SCH (08:26)
[2018-08-31] MEDS: Fluticasone/Vilanterol MDI(NF) 200/25 MDI INH SCH (08:26)
[2018-08-31] MEDS: Nicotine Inhaler* 10 MG AMP INH PRN ×2 (08:48→18:03)
[2018-08-31] MEDS: amLODIPine TAB* 5 MG PO SCH (08:49)
[2018-08-31] MEDS: Isosorbide Mononitrate ER TAB* 30 MG PO SCH (08:49)
[2018-08-31] MEDS: Metoprolol Tartrate TAB* 25 MG PO SCH ×2 (08:49→20:32)
[2018-08-31] MEDS: Gabapentin CAP(*) 400 MG PO SCH ×2 (08:49→20:33)
[2018-08-31] MEDS: DOXYcycline CAP(*) 100 MG PO SCH ×2 (08:49→20:32)
[2018-08-31] MEDS: Lithium Carbonate TAB* 300 MG PO SCH ×2 (08:49→20:33)
[2018-08-31] MEDS: predniSONE TAB* 20 MG PO SCH (08:49)
[2018-08-31] MEDS: Montelukast Sodium TAB* 10 MG PO SCH (08:49)
[2018-08-31] MEDS: OLANzapine TAB* 10 MG PO SCH (09:31)
--- NOTE | 2018-08-31 11:39 | PN ---
Subjective Date of Service: 08/31/18 Interval History: Reports she feels "much better today and would like to go home". She denies having any further CP or SOB. Reports cough and URI symptoms such as nasal congestion. She denies Sputum production or wheezing. Denies fever/chills. Reports good appetite. No N/V/D. Pt follows with Dr. Funes regularly Q3 months or as needed. She does not have a marketing development specialist and is not interested in following with one and states "she will think about it". Objective Active Medications: Acetaminophen (Tylenol Tab*) 650 mg PO Q4H PRN PRN Reason: FEVER/PAIN Albuterol (Ventolin 2.5 Mg/3 Ml Neb.Tania*) 2.5 mg INH [id number] AWAKE PRN PRN Reason: sob/wheezing Albuterol (Ventolin 2.5 Mg/3 Ml Neb.Tania*) 2.5 mg INH Q2H PRN PRN Reason: SOB/WHEEZING Alprazolam (Xanax Tab*) 0.25 mg PO Q6H PRN PRN Reason: ANXIETY Amlodipine Besylate (Norvasc Tab*) 10 mg PO DAILY [facility] Last Admin: 08/31/18 08:49 Dose: 10 mg Atorvastatin Calcium (Lipitor*) 10 mg PO 1700 [facility] Last Admin: 08/30/18 16:40 Dose: 10 mg Doxycycline Hyclate (Vibramycin Cap(*)) 100 mg PO BID [facility] Last Admin: 08/31/18 08:49 Dose: 100 mg Fluticasone/Vilanterol (Breo Ellipta Mdi 200/25(Nf)) 1 puff INH DAILY [facility] Last Admin: 08/31/18 08:26 Dose: Not Given Gabapentin (Neurontin Cap(*)) 400 mg PO BID [facility] Last Admin: 08/31/18 08:49 Dose: 400 mg Isosorbide Mononitrate (Imdur Er Tab*) 30 mg PO DAILY [facility] Last Admin: 08/31/18 08:49 Dose: [address] [place] Carbonate ([place] Carbonate Tab*) 300 mg PO BID [facility] Last Admin: 08/31/18 08:49 Dose: 300 mg Metoprolol Tartrate (Lopressor Tab*) 25 mg PO BID [facility] Last Admin: 08/31/18 08:49 Dose: 25 mg Mirtazapine (Remeron Tab*) 15 mg PO BEDTIME [facility] Last Admin: 08/30/18 20:50 Dose: 15 mg Montelukast Sodium (Singulair Tab*) 10 mg PO DAILY [facility] Last Admin: 08/31/18 08:49 Dose: 10 mg Nicotine (Nicotine Inhaler*) 10 mg INH Q2H PRN PRN Reason: CRAVING Last Admin: 08/31/18 08:48 Dose: 10 mg Olanzapine (Zyprexa Tab*) 10 mg PO DAILY [facility] Last Admin: 08/31/18 09:31 Dose: 10 mg Omeprazole (Prilosec Cap*) 20 mg PO DAILY@0730 [facility]; Protocol Last Admin: 08/31/18 08:14 Dose: 20 mg Ondansetron HCl (Zofran Inj*) 4 mg IV Q4H PRN PRN Reason: NAUSEA/VOMITING Prednisone (Deltasone Tab*) 40 mg PO DAILY [facility] Last Admin: 08/31/18 08:49 Dose: 40 mg Umeclidinium [place] (Incruse Ellipta Mdi (Nf)) 1 inh INH DAILY [facility] Last Admin: 08/31/18 08:26 Dose: Not Given Warfarin Sodium (Coumadin Tab(*)) 4.5 mg PO 1700 [facility]; Protocol Last Admin: 08/30/18 16:40 Dose: 4.5 mg Vital Signs - 8 hr 08/31/18 08/31/18 08/31/18 03:36 08:00 08:38 Temperature 97.5 F 97.4 F Pulse Rate 52 95 Respiratory 24 18 20 Rate Blood Pressure 136/48 141/57 (mmHg) O2 Sat by Pulse 97 93 Oximetry 08/31/18 08:49 Temperature Pulse Rate Respiratory 18 Rate Blood Pressure (mmHg) O2 Sat by Pulse Oximetry Appearance: 62 yo female sitting up in bed watching TV in NAD, A+O x3 Eyes: No Scleral Icterus, PERRLA Ears/Nose/Mouth/Throat: NL Teeth, Lips, Gums, Mucous Membranes Moist Neck: NL Appearance and Movements; NL JVP Respiratory: Symmetrical Chest Expansion and Respiratory Effort, Clear to Auscultation Cardiovascular: NL Sounds; No Murmurs; No JVD, RRR, No Edema Abdominal: NL Sounds; No Tenderness; No Distention Lymphatic: No Cervical Adenopathy Extremities: No Edema, No Clubbing, Cyanosis, - - tenderness to chest wall with palpation Skin: No Rash or Ulcers, No Nodules or Sclerosis Neurological: Alert and Oriented x 3, NL Sensation, NL Gait, NL Muscle Strength and Tone Lines/Tubes/Other Access: Clean, Dry and Intact Peripheral IV Nutrition: Taking PO's Result Diagrams: 08/31/18 05:55 08/31/18 05:55 Assess/Plan/Problems-Billing Assessment: 62 yo female with a PMH of COPD, chronic hypoxic respiratory failure , HTN, CAD, PVD, HTN, schizophrenia/bipolar, anxiety, hx of DVT on chronic coumadin who presented to the ER on 08/30 with c/o shortness of breath and CP; reports recent URI on Doxy. - Patient Problems (1) COPD exacerbation Comment: - Mild - Suspect secondary to bronchitis, mild exacerbation. - Continue bronchodilators, prednisone 40 mg daily x 5 days, continue Doxy course - Plan to ambulate patient and if O2 saturation is stable plan to DC. (2) Chest pain Comment: - Resolved. Suspect secondary to URI/cough. Musculoskeletal tenderness on palpation - Troponin 0.00 x2, 0.01 x1 - ACS ruled out with serial negative troponins - No significant arrhythmias on Tele or EKG changes - Pt refusing stress test (3) CAD (coronary artery disease) Comment: - Continue Imdur, Lopressor and atorvastatin (4) HTN (hypertension) Comment: Controlled Continue Imdur, Lopressor, norvasc (5) Hx of deep venous thrombosis Comment: INR therapeutic; Continue warfarin (6) Schizoaffective disorder, bipolar type Comment: - Mood stable - Continue olanzapine, lithium and mirtazapine (7) Full code status (8) DVT prophylaxis Comment: - INR therapeutic - Continue Warfarin Status and Disposition: OBV. DC home today or tomorrow. Plan to ambulate patient and check O2 sat, if wnls may be DC to home
[2018-08-31] MEDS: Warfarin TAB(*) 1 MG PO SCH (16:40)
[2018-08-31] MEDS: Atorvastatin* 10 MG TAB PO SCH (16:40)
[2018-08-31] MEDS: Mirtazapine TAB* 15 MG PO SCH (20:33)
[2018-09-01] MEDS: Umeclidinium 62.5 MDI(NF) MDI INH SCH (07:41)
[2018-09-01] MEDS: Fluticasone/Vilanterol MDI(NF) 200/25 MDI INH SCH (07:41)
[2018-09-01] MEDS: Isosorbide Mononitrate ER TAB* 30 MG PO SCH (08:11)
[2018-09-01] MEDS: Montelukast Sodium TAB* 10 MG PO SCH (08:11)
[2018-09-01] MEDS: Omeprazole CAP* 20 MG PO SCH (08:11)
[2018-09-01] MEDS: Gabapentin CAP(*) 400 MG PO SCH (08:11)
[2018-09-01] MEDS: Lithium Carbonate TAB* 300 MG PO SCH (08:12)
[2018-09-01] MEDS: Metoprolol Tartrate TAB* 25 MG PO SCH (08:12)
[2018-09-01] MEDS: OLANzapine TAB* 10 MG PO SCH (08:12)
[2018-09-01] MEDS: amLODIPine TAB* 5 MG PO SCH (08:12)
[2018-09-01] MEDS: DOXYcycline CAP(*) 100 MG PO SCH (08:12)
[2018-09-01] MEDS: predniSONE TAB* 20 MG PO SCH (08:12)
--- NOTE | 2018-09-01 08:30 | PN ---
Subjective Date of Service: 09/01/18 Interval History: Pt reports she feels "good enough to go home". She reports ocassional cough, little sputum production. Denies SOB. Feels "a little wheezy this morning". No CP. No fevers/chills. Objective Active Medications: Acetaminophen (Tylenol Tab*) 650 mg PO Q4H PRN PRN Reason: FEVER/PAIN Albuterol (Ventolin 2.5 Mg/3 Ml Neb.Tania*) 2.5 mg INH [id number] AWAKE PRN PRN Reason: sob/wheezing Albuterol (Ventolin 2.5 Mg/3 Ml Neb.Tania*) 2.5 mg INH Q2H PRN PRN Reason: SOB/WHEEZING Alprazolam (Xanax Tab*) 0.25 mg PO Q6H PRN PRN Reason: ANXIETY Last Admin: 08/31/18 22:08 Dose: 0.25 mg Amlodipine Besylate (Norvasc Tab*) 10 mg PO DAILY [facility] Last Admin: 09/01/18 08:12 Dose: 10 mg Atorvastatin Calcium (Lipitor*) 10 mg PO 1700 [facility] Last Admin: 08/31/18 16:40 Dose: 10 mg Doxycycline Hyclate (Vibramycin Cap(*)) 100 mg PO BID [facility] Last Admin: 09/01/18 08:12 Dose: 100 mg Fluticasone/Vilanterol (Breo Ellipta Mdi 200/25(Nf)) 1 puff INH DAILY [facility] Last Admin: 09/01/18 07:41 Dose: Not Given Gabapentin (Neurontin Cap(*)) 400 mg PO BID [facility] Last Admin: 09/01/18 08:11 Dose: 400 mg Isosorbide Mononitrate (Imdur Er Tab*) 30 mg PO DAILY [facility] Last Admin: 09/01/18 08:11 Dose: 30 mg [place] Carbonate ([place] Carbonate Tab*) 300 mg PO BID [facility] Last Admin: 09/01/18 08:12 Dose: 300 mg Metoprolol Tartrate (Lopressor Tab*) 25 mg PO BID [facility] Last Admin: 09/01/18 08:12 Dose: 25 mg Mirtazapine (Remeron Tab*) 15 mg PO BEDTIME [facility] Last Admin: 08/31/18 20:33 Dose: 15 mg Montelukast Sodium (Singulair Tab*) 10 mg PO DAILY [facility] Last Admin: 09/01/18 08:11 Dose: 10 mg Nicotine (Nicotine Inhaler*) 10 mg INH Q2H PRN PRN Reason: CRAVING Last Admin: 08/31/18 18:03 Dose: 10 mg Olanzapine (Zyprexa Tab*) 10 mg PO DAILY [facility] Last Admin: 09/01/18 08:12 Dose: 10 mg Omeprazole (Prilosec Cap*) 20 mg PO DAILY@0730 [facility]; Protocol Last Admin: 09/01/18 08:11 Dose: 20 mg Ondansetron HCl (Zofran Inj*) 4 mg IV Q4H PRN PRN Reason: NAUSEA/VOMITING Prednisone (Deltasone Tab*) 40 mg PO DAILY [facility] Last Admin: 09/01/18 08:12 Dose: 40 mg Umeclidinium [place] (Incruse Ellipta Mdi (Nf)) 1 inh INH DAILY [facility] Last Admin: 09/01/18 07:41 Dose: Not Given Warfarin Sodium (Coumadin Tab(*)) 4.5 mg PO 1700 [facility]; Protocol Last Admin: 08/31/18 16:40 Dose: 4.5 mg Vital Signs - 8 hr 09/01/18 09/01/18 09/01/18 03:10 05:01 08:11 Temperature 97.1 F Pulse Rate 48 Respiratory 16 26 24 Rate Blood Pressure 129/50 (mmHg) O2 Sat by Pulse 95 Oximetry Oxygen Devices in Use Now: Nasal Cannula Appearance: 62 yo chronically ill female sitting up on the side of the bed in NAD, A+O x3 Eyes: No Scleral Icterus, PERRLA Ears/Nose/Mouth/Throat: NL Teeth, Lips, Gums, Mucous Membranes Moist Neck: NL Appearance and Movements; NL JVP Respiratory: Symmetrical Chest Expansion and Respiratory Effort, - - exp wheezing b/l - good aeration otherwise Cardiovascular: NL Sounds; No Murmurs; No JVD, RRR, No Edema Abdominal: NL Sounds; No Tenderness; No Distention Extremities: No Edema, No Clubbing, Cyanosis Skin: No Rash or Ulcers, No Nodules or Sclerosis Result Diagrams: 08/31/18 05:55 08/31/18 05:55 Microbiology and Other Data: Microbiology 08/30/18 13:07 Urine Culture - Final Urine Assess/Plan/Problems-Billing Assessment: 62 yo female with a PMH of COPD, chronic hypoxic respiratory failure , HTN, CAD, PVD, HTN, schizophrenia/bipolar, anxiety, hx of DVT on chronic coumadin who presented to the ER on 08/30 with c/o shortness of breath and CP; reports recent URI on Doxy. - Patient Problems (1) COPD exacerbation Comment: - Mild - Suspect secondary to bronchitis, mild exacerbation. - Continue bronchodilators, prednisone 40 mg daily x 5 days, continue Doxy course total 10 days - Plan to ambulate patient and if O2 saturation is stable plan to DC. Pt would benefit from pulm outpt - she is refusing at this time (2) Chest pain Comment: - Resolved. Suspect secondary to URI/cough. Musculoskeletal tenderness on palpation - Troponin 0.00 x2, 0.01 x1 - ACS ruled out with serial negative troponins - No significant arrhythmias on Tele or EKG changes - Pt refusing stress test (3) CAD (coronary artery disease) Comment: - Continue Imdur, Lopressor and atorvastatin (4) HTN (hypertension) Comment: Controlled Continue Imdur, Lopressor, norvasc (5) Hx of deep venous thrombosis Comment: INR therapeutic; Continue warfarin (6) Schizoaffective disorder, bipolar type Comment: - Mood stable - Continue olanzapine, lithium and mirtazapine (7) Full code status (8) DVT prophylaxis Comment: - INR therapeutic - Continue Warfarin Status and Disposition: OBV. DC home today or tomorrow. Plan to ambulate patient and check O2 sat, if wnls may be DC to home
[2018-09-01 10:29] VITALS: BP 155/52
--- NOTE | 2018-09-01 21:41 | DS ---
CC: Dr. Schrader * DISCHARGE SUMMARY: DATE OF ADMISSION: 08/30/18 DATE OF DISCHARGE: 09/01/18 PROVIDER: Merna Christensen NP. ATTENDING PHYSICIAN: Dr. Waldrop * (report dictated by Merna Christensen NP). PRIMARY CARE PROVIDER: Dr. Schrader. DISCHARGE DIAGNOSES: 1. Chronic obstructive pulmonary disease exacerbation/bronchitis. 2. [id number] hypoxic respiratory failure. SECONDARY DIAGNOSES: 1. Hypertension. 2. Peripheral vascular disease. 3. Coronary artery disease. 4. Hyperlipidemia. 5. Schizophrenia. 6. Bipolar. 7. Anxiety. 8. Depression. 9. History of DVT, on chronic warfarin. 10. Mitral regurgitation. DISCHARGE MEDICATIONS: 1. Mirtazapine 15 mg p.o. at bedtime. 2. Coumadin 4.5 mg p.o. daily. 3. Gabapentin 400 mg p.o. b.i.d. 4. Norvasc 10 mg p.o. daily. 5. Ellipta 62.5 mcg INH daily. 6. Zyprexa 10 mg p.o. daily. 7. Singulair 10 mg p.o. daily. 8. Metoprolol tartrate 25 mg p.o. b.i.d. 9. [place] 300 mg p.o. b.i.d. 10. Imdur ER 30 mg p.o. daily. 11. Breo Ellipta MDI 200/25 one puff INH daily. 12. Nexium 40 mg p.o. daily. 13. Atorvastatin 10 mg p.o. daily. 14. Albuterol 2 puffs INH q.4 hours p.r.n. 15. Albuterol 2.5 mg/3 mL INH q.2 to 4 hours nebulizer p.r.n. 16. Acetaminophen 650 mg p.o. q.4 hours p.r.n. 17. Xanax 0.25 mg p.o. q.6 hours p.r.n. New Medications: 1. Prednisone 40 mg p.o. daily x5 days. 2. Doxycycline 100 mg p.o. b.i.d. x5 days. HISTORY OF PRESENT ILLNESS AND HOSPITAL COURSE: Please see history and physical by Crystal Marcano NP, for full admission details, but in summary, this is a 62-year- old female with a past medical history of chronic hypoxic respiratory failure, requiring 2 L of oxygen at nighttime with a history of COPD , current tobacco abuse, frequent hospitalizations who presented on 08/30/18 with complaints of progressively worsening shortness of breath and chest pain. She reported she recently had increased cough and congestion 2 or 3 days prior to hospitalization and was started on doxycycline. She was admitted to the hospitalist service for COPD exacerbation. Her doxycycline was continued on admission. She had aggressive pulmonary toileting with [id number] nebulizers and started on prednisone. She has done well throughout her hospitalization. Today, she strongly would like to be discharged home. She reports her cough is much better and she is producing very little sputum. I suspect she probably has bronchitis. She appears well and nontoxic. The patient was counseled to refrain from tobacco abuse while she is recovering from this illness. She is to continue her doxycycline course and will be sent home on a prednisone course. She was instructed to follow up with her primary care provider this week. As well, she was instructed to continue nebulizers 4 to 6 hours for the next several days. The patient was ambulated on room air with maintaining sats of 93% and is stable for discharge to home. In regards to her chest pain that she reported on admission, she had troponins trended which were flat. I suspect this is secondary to upper respiratory illness and cough. She had musculoskeletal tenderness on palpation. No noted arrhythmias on telemetry or EKG changes. She is refusing a stress test and refusing referral to a skiver box toe as an outpatient and states that she will follow up with her primary care provider. Her INR on 08/31/18 is 2.11. The patient was instructed to continue her Coumadin and follow up with her primary care physician to have her INR checked this week due to that she is on antibiotics. DISCHARGE PLAN: 1. Follow up with primary care provider, Dr. Schrader, this week for a followup and an INR check. 2. The patient was educated to refrain from smoking while recovering from acute illness. 3. She was instructed to return to the emergency department with any worsening or concerning symptoms. 4. The patient may benefit from chemistry profile with a magnesium to check magnesium level as she was noted to be low and she did receive replacement twice in her hospitalization. TIME SPENT: Approximately 60 minutes was spent on this discharge. MERNA CHRISTENSEN, DIRECTOR [employer] [id number]/[facility] #: [id number] ANNITA
== END 2018-09-01 11:26 | disposition home or self-care (01) | DRG 190 ==
LOC: ED 08:05 → MEDTELE 12:09
PROVIDERS: ADMIT Hospitalist; ATTEND Hospitalist
DX: J44.1 Chronic obstructive pulmonary disease with (acute) exacerbation (principal); J96.21 Acute and chronic respiratory failure with hypoxia; I10 Essential (primary) hypertension; I34.0 Nonrheumatic mitral (valve) insufficiency; F32.9 Major depressive disorder, single episode, unspecified; F41.9 Anxiety disorder, unspecified; E78.5 Hyperlipidemia, unspecified; F25.0 Schizoaffective disorder, bipolar type; I73.9 Peripheral vascular disease, unspecified; I25.10 Atherosclerotic heart disease of native coronary artery without angina pectoris; K21.9 Gastro-esophageal reflux disease without esophagitis; K58.9 Irritable bowel syndrome, unspecified; F17.210 Nicotine dependence, cigarettes, uncomplicated; E83.42 Hypomagnesemia; Z79.01 Long term (current) use of anticoagulants; Z99.81 Dependence on supplemental oxygen; Z86.718 Personal history of other venous thrombosis and embolism; Z90.89 Acquired absence of other organs; Z90.49 Acquired absence of other specified parts of digestive tract; Z82.49 Family history of ischemic heart disease and other diseases of the circulatory system; Z83.6 Family history of other diseases of the respiratory system; Z88.8 Allergy status to other drugs, medicaments and biological substances; Z87.01 Personal history of pneumonia (recurrent); Z72.89 Other problems related to lifestyle
CPT/HCPCS: 36415; 71045; 80048; 80053; 80061; 81003; 81015; 82550; 82553; 82803; 83605; 83735; 83880; 84443; 84484; 85025; 85379; 85610; 87086; 93005; 93306; 94640; 99285; 99406; A9270-GY; J2270; J2930; J3475; J7512

== ENCOUNTER 2018-09-15 09:28 | Emergency (ER) | payer MEDICARE, MEDICAID ==
[2018-09-15] MEDS ORDERED: Dexamethasone IV* 4 MG/ML 1 ML (4 MG) IV SLOW PU ONE (09:47)
[2018-09-15] MEDS ORDERED: Albuterol/Ipratropium NEB.SOL* Albuterol 2.5 MG/Ipratropium 0.5 MG 3 ML INH ONE (09:47)
[2018-09-15] MEDS ORDERED: Albuterol/Ipratropium NEB.SOL* Albuterol 2.5 MG/Ipratropium 0.5 MG 3 ML ONE (09:49)
--- NOTE | 2018-09-15 10:00 | UC ---
Shortness of Breath HPI - History of Current Complaint Chief Complaint: EDShortnessOfBreath Stated Complaint: SOB Time Seen by Provider: 09/15/18 09:39 - Allergy/Home Medications Allergies/Adverse Reactions: Allergies Allergy/AdvReac Type Severity Reaction Status Date / Time bupropion [From Wellbutrin] Allergy Agitation Verified 09/15/18 09:35 Cephalosporins Allergy Agitation Verified 09/15/18 09:35 chlorproethazine Allergy Agitation Verified 09/15/18 09:35 erythromycin base Allergy Diarrhea Verified 09/15/18 09:35 Penicillins Allergy Hives Verified 09/15/18 09:35 tobramycin Allergy Diarrhea Verified 09/15/18 09:35 PMH/Surg Hx/FS Hx/Imm Hx Other History Of: Anticoagulant Therapy - Surgical History Surgical History: Yes Surgery Procedure, Year, and Place: bilat thumb repairs, hernia repairs X 2, cholecystectomy, appendectomy - Family History Known Family History: Positive: Cardiac Disease - ID, Other - schizophrenia, anxiety Negative: Hypertension, Diabetes Family History: Negative HTN/DM per EMR - Social History Alcohol Use: Occasionally Substance Use Type: None Smoking Status (MU): Light Every Day Tobacco Smoker Type: Cigarettes Amount Used/How Often: half a pack a day Have You Smoked in the Last Year: Yes Household Exposure Type: Cigarettes - Immunization History Most Recent Influenza Vaccination: 06/07/18 Most Recent Tetanus Shot: unknown Most Recent Pneumonia Vaccination: 2012 Physical Exam Vital Signs: Initial Vital Signs Temp 98.3 F 09/15/18 09:39 Pulse 103 09/15/18 09:39 Resp 22 09/15/18 09:39 BP 119/78 09/15/18 09:39 Pulse Ox 92 09/15/18 09:39 Discharge - Discharge Plan Referrals: Tom Schrader MD [Primary Care Provider] -
--- NOTE | 2018-09-15 10:08 | ED ---
Shortness of Breath - HPI Summary HPI Summary: Patient is a 62-year-old female with a PMH of hypertension, CAD, chronic respiratory failure and COPD presenting to the ED with worsening SOB over the course of 2 days. She states "I've been feeling ill" for the past 2 days, however awoke this morning with worsening SOB. She endorses cough without production. She endorses one episode of emesis due to severe coughing fit earlier this morning. She states she used her nebulizer albuterol treatment at home without much relief and called the ambulance. She typically wears O2 only at night, but states she has needed it throughout the day and has been on to L. She denies any sick contacts. Flu vaccine up-to-date. She denies any CP. She continues on all her medications and denies any changes in these medications. She denies any abdominal pain, nausea, vomiting, constipation, diarrhea. Denies any urinary symptoms or back pain. Denies any fevers, however states she had some chills this morning. - History of Current Complaint Chief Complaint: EDShortnessOfBreath Time Seen by Provider: 09/15/18 09:39 Hx Obtained From: Patient Onset/Duration: Sudden Onset Timing: Constant Current Severity: Moderate Dyspnea At: Rest Aggrevating Factors: Movement, Deep Breaths Alleviating Factors: Bronchodilators, EMS Tx, Oxygen, Upright Position Associated Signs & Symptoms: Cough (Nonproductive) - Risk Factors Pulmonary Embolism: Negative Cardiac: Negative Pseudomonas: Chronic Lung Disease - Allergy/Home Medications Allergies/Adverse Reactions: Allergies Allergy/AdvReac Type Severity Reaction Status Date / Time bupropion [From Wellbutrin] Allergy Agitation Verified 09/15/18 09:35 Cephalosporins Allergy Agitation Verified 09/15/18 09:35 chlorproethazine Allergy Agitation Verified 09/15/18 09:35 erythromycin base Allergy Diarrhea Verified 09/15/18 09:35 Penicillins Allergy Hives Verified 09/15/18 09:35 tobramycin Allergy Diarrhea Verified 09/15/18 09:35 PMH/Surg Hx/FS Hx/Imm Hx Previously Healthy: No Endocrine/Hematology History: Reports: Hx Anticoagulant Therapy, Hx Anemia, Other Endocrine/Hematological Disorders - L leg DVT Denies: Hx Diabetes, Hx Systemic Lupus Erythematosus, Hx Thyroid Disease Cardiovascular History: Reports: Hx Angina, Hx Coronary Artery Disease, Hx Deep Vein Thrombosis, Hx Hypercholesterolemia, Hx Hypertension, Hx Peripheral Vascular Disease, Other Cardiovascular Problems/Disorders - PERIPHERAL ARTERY DISEASE; CAD; DVT Denies: Hx Congestive Heart Failure, Hx Pacemaker/ICD Respiratory History: Reports: Hx Asthma, Hx Chronic Bronchitis, Hx Chronic Obstructive Pulmonary Disease (COPD) - 2L at home, Hx Pneumonia, Hx Seasonal Allergies, Other Respiratory Problems/Disorders - PNA Denies: Hx Cystic Fibrosis, Hx Lung Cancer, Hx Pleural Effusion, Hx Pulmonary Edema, Hx Pulmonary Embolism, Hx Sleep Apnea GI History: Reports: Hx Gall Bladder Disease - removed, Hx Gastroesophageal Reflux Disease, Hx Irritable Bowel, Other GI Disorders - hernia repair X 2 Denies: Hx Cirrhosis, Hx Crohn's Disease, Hx Diverticulosis History: Denies: Hx Dialysis, Hx Renal Disease Musculoskeletal History: Denies: Hx Arthritis, Hx Rheumatoid Arthritis, Hx Osteoporosis Sensory History: Denies: Hx Contacts or Glasses, Hx Glaucoma, Hx Deafness, Hx Hearing Aid, Hx Hearing Problem Opthamlomology History: Denies: Hx Contacts or Glasses, Hx Glaucoma Neurological History: Denies: Hx Headaches, Hx Seizures, Hx Transient Ischemic Attacks (TIA) Psychiatric History: Reports: Hx Anxiety, Hx Depression, Hx Inpatient Treatment , Hx Community Mental Health Tx, Hx Schizophrenia, Hx Bipolar Disorder, Hx Suicide Attempt Denies: Hx Eating Disorder, Hx Panic Disorder, Hx of Violent Episodes Against Others - Cancer History Hx Chemotherapy: No - Surgical History Surgery Procedure, Year, and Place: bilat thumb repairs, hernia repairs X 2, cholecystectomy, appendectomy Hx Anesthesia Reactions: No - Immunization History Date of Tetanus Vaccine: UTD Date of Influenza Vaccine: UTD Hx Pertussis Vaccination: No Immunizations Up to Date: Yes Infectious Disease History: No Infectious Disease History: Denies: Hx Clostridium Difficile, Hx Hepatitis, Hx Human Immunodeficiency Virus (HIV), Hx of Known/Suspected MRSA, Hx Shingles, Hx Tuberculosis, Traveled Outside the [place] in Last 30 Days - Family History Known Family History: Positive: Cardiac Disease - [place], Other - schizophrenia, anxiety Negative: Hypertension, Diabetes Family History: Negative HTN/DM per EMR - Social History Occupation: Unemployed Lives: Alone Alcohol Use: Occasionally Hx Substance Use: No Substance Use Type: Reports: None Hx Tobacco Use: Yes Smoking Status (MU): Light Every Day Tobacco Smoker Type: Cigarettes Amount Used/How Often: half a pack a day Have You Smoked in the Last Year: Yes Review of Systems Positive: Chills. Negative: Fever, Fatigue, Skin Diaphoresis Negative: Epistaxis, Dental Pain Negative: Palpitations, Chest Pain Positive: Shortness Of Breath, Cough Genitourinary: Negative Positive: no symptoms reported, see HPI Negative: Arthralgia, Myalgia Skin: Negative All Other Systems Reviewed And Are Negative: Yes Physical Exam Triage Information Reviewed: Yes Vital Signs On Initial Exam: Initial Vitals Temp Pulse Resp BP Pulse Ox 98.3 F 103 22 119/78 92 09/15/18 09:39 09/15/18 09:39 09/15/18 09:39 09/15/18 09:39 09/15/18 09:39 Vital Signs Reviewed: Yes Appearance: Positive: Well-Appearing, Well-Nourished Skin: Positive: Skin Color Reflects Adequate Perfusion Head/Face: Positive: Normal Head/Face Inspection Eyes: Positive: EOMI, CRISTIAN, Conjunctiva Clear Neck: Positive: No Lymphadenopathy Respiratory/Lung Sounds: Positive: Wheezes - expiratory and inspiratory wheezing throughout. diminished breath sounds throughout, Fatigue Cardiovascular: Positive: RRR, Tachycardia. Negative: Leg Edema Left, Leg Edema Right Musculoskeletal: Positive: Normal, Strength/ROM Intact Neurological: Positive: Alert, Oriented to Person Place, Time, Speech Normal Psychiatric: Positive: Normal, Affect/Mood Appropriate AVPU Assessment: Alert Diagnostics - Vital Signs Vital Signs Temp Pulse Resp BP Pulse Ox 09/15/18 09:52 96 21 91 09/15/18 09:43 34 09/15/18 09:39 98.3 F 103 22 119/78 92 - Laboratory Result Diagrams: 09/15/18 09:08 09/15/18 09:08 Lab Statement: Any lab studies that have been ordered have been reviewed, and results considered in the medical decision making process. Course/Dx - Course Course Of Treatment: During the course of treatment, the patient is evaluated for worsening SOB over the course of the last 2 days. History of COPD, chronic hypoxic respiratory failure and currently on 2L at night. She has required to L during the day as well she states. On arrival to the ED she is stable satting at 92% on room air. She denies any chest pain. She appears to have labored breathing, but is not. She is slightly tachycardic with a rate of 105. BP stable. Lung sounds diminished throughout. EKG shows sinus tachycardia with a probable left atrial enlargement. Patient is feeling improved after dexamethasone, DuoNeb. She remains 92% on room air. She is ambulating well. She will be discharged home as she has oxygen at home as well as her albuterol treatments. She is also given DuoNeb's and a 5 day course of prednisone. - Diagnoses Provider Diagnoses: COPD exacerbation Discharge - Sign-Out/Discharge Documenting (check all that apply): Patient Departure - Discharge Plan Condition: Stable Disposition: HOME Prescriptions: Albuterol/Ipratropium NEB.GINETTE* [Duoneb (Albuterol 2.5 MG/Ipratropium 0.5 MG)] 1 neb INH Q4H #15 neb.soln predniSONE TAB* [Deltasone TAB*] 50 mg PO DAILY #5 tab MDD 1 Referrals: Tom Schrader MD [Primary Care Provider] - Additional Instructions: Please follow up with PCP Prednisone once daily - take in the morning First dose tomorrow Duo-nebulizer treatments are prescribed to you Use these for worsening shortness of breath if albuterol treatments are not improving your symptoms - Billing Disposition and Condition Condition: STABLE Disposition: Home
[2018-09-15 10:28] LABS: ABS Basophils 0 10^3/ul (0-0.2); ABS Eosinophils 0.2 10^3/ul (0-0.6); ABS Lymphocytes 0.6 10^3/ul (1.0-4.8); ABS Monocytes 0.5 10^3/ul (0-0.8); ABS Neutrophils 3.1 10^3/ul (1.5-7.7); ABS Nucleated RBC 0 10^3/ul; Eosinophil % 5.4 %; Hematocrit 36 % (35-47); Hemoglobin 11.9 g/dl (12.0-16.0); Lymphocyte % 13.4 %; Mean Corpuscular HGB Conc 33 g/dl (31-36); Mean Corpuscular Hemoglobin 28 pg (27-31); Mean Corpuscular Volume 85 fL (80-97); Mean Platelet Volume 8.7 fL (7.4-10.4); Nucleated Red Blood Cells % 0; Platelet Count 114 10^3/ul (150-450); Red Blood Count 4.26 10^6/ul (4.00-5.40); Red Cell Distribution Width 15 % (10.5-15); White Blood Count 4.4 10^3/ul (3.5-10.8)
[2018-09-15 10:32] LABS: Albumin 3.3 g/dL (3.2-5.2); Albumin/Globulin Ratio 1.2 (1-3); BUN/Creatinine Ratio 9.9 (8-20); C Reactive Protein 20.11 mg/L (<8.01); Calcium 9.2 mg/dL (8.6-10.3); EGFR Non-African American 63.1 (>60); Globulin 2.8 g/dL (2-4); Potassium 4.1 mmol/L (3.5-5.0); Total Bilirubin 0.3 mg/dL (0.2-1.0); Total Protein 6.1 g/dL (6.4-8.9)
[2018-09-15 11:22] VITALS: BP 126/60
== END 2018-09-15 11:20 | disposition home or self-care (01) ==
LOC: ED 09:28
DX: J44.1 Chronic obstructive pulmonary disease with (acute) exacerbation (principal); Z99.81 Dependence on supplemental oxygen; R00.0 Tachycardia, unspecified; Z88.1 Allergy status to other antibiotic agents; Z88.0 Allergy status to penicillin; Z86.718 Personal history of other venous thrombosis and embolism; Z79.01 Long term (current) use of anticoagulants; F17.210 Nicotine dependence, cigarettes, uncomplicated
CPT/HCPCS: 36415; 71046; 80053; 82550; 83605; 84484; 85025; 86140; 93005; 96374; 99283; A9270-GY; J1100

== ENCOUNTER 2018-09-19 05:46 | Inpatient (IN) | payer MEDICARE, MEDICAID ==
[2018-09-19] MEDS ORDERED: Magnesium Sulfate 2 GM IV* 2 GM/50 ML BAG IV ONE (05:57)
[2018-09-19] MEDS ORDERED: methylPREDNISolone 125 MG* 2 ML VIAL IV ONE (05:57)
--- NOTE | 2018-09-19 06:07 | ED ---
Shortness of Breath - HPI Summary HPI Summary: Patient presents with return of COPD exacerbation - feels worse today than she' s ever felt. She was seen on 09/15/2018 and prescribed 50 mg of prednisone along with DuoNeb breathing treatments. She received Decadron and DuoNeb here and improved. Her chest x-ray was without acute findings. ECG reveals NSR w/ HR 100 , no ST elevations. She reports she typically uses 2 L of oxygen at night however with recent exacerbation has been wearing this during the day as well. Her symptoms have been getting worse over the past couple days so she decided to come back in - feels like she can't breath. She does admit she was not able to get DuoNeb as her insurance would not cover it and PCP wanted her to come in for f/u before rx'ing it however she does still use albuterol neb at home. Additionally, she is a smoker however reports she hasn't smoked in the past couple of days due to breathing difficulties. She is not on any antibiotics and flu vaccine is up-to-date. Reports going between fevers and chills however she reports feeling jittery as well since taking the prednisone. Nausea and has not been able to eat much due to these symptoms denies diarrhea or vomiting. Cough is about the same. No chest pain or hemoptysis reported. Takes coumadin for DVT. - History of Current Complaint Chief Complaint: EDShortnessOfBreath Time Seen by Provider: 09/19/18 05:49 Hx Obtained From: Patient - Allergy/Home Medications Allergies/Adverse Reactions: Allergies Allergy/AdvReac Type Severity Reaction Status Date / Time bupropion [From Wellbutrin] Allergy Agitation Verified 09/19/18 05:59 Cephalosporins Allergy Agitation Verified 09/19/18 05:59 chlorproethazine Allergy Agitation Verified 09/19/18 05:59 erythromycin base Allergy Diarrhea Verified 09/19/18 05:59 Penicillins Allergy Hives Verified 09/19/18 05:59 tobramycin Allergy Diarrhea Verified 09/19/18 05:59 PMH/Surg Hx/FS Hx/Imm Hx Previously Healthy: Yes Endocrine/Hematology History: Reports: Hx Anticoagulant Therapy, Hx Anemia, Other Endocrine/Hematological Disorders - L leg DVT Denies: Hx Diabetes, Hx Systemic Lupus Erythematosus, Hx Thyroid Disease Cardiovascular History: Reports: Hx Angina, Hx Coronary Artery Disease, Hx Deep Vein Thrombosis, Hx Hypercholesterolemia, Hx Hypertension, Hx Peripheral Vascular Disease, Other Cardiovascular Problems/Disorders - PERIPHERAL ARTERY DISEASE; CAD; DVT Denies: Hx Congestive Heart Failure, Hx Pacemaker/ICD Respiratory History: Reports: Hx Asthma, Hx Chronic Bronchitis, Hx Chronic Obstructive Pulmonary Disease (COPD) - 2L at home, Hx Pneumonia, Hx Seasonal Allergies, Other Respiratory Problems/Disorders - PNA Denies: Hx Cystic Fibrosis, Hx Lung Cancer, Hx Pleural Effusion, Hx Pulmonary Edema, Hx Pulmonary Embolism, Hx Sleep Apnea GI History: Reports: Hx Gall Bladder Disease - removed, Hx Gastroesophageal Reflux Disease, Hx Irritable Bowel, Other GI Disorders - hernia repair X 2 Denies: Hx Cirrhosis, Hx Crohn's Disease, Hx Diverticulosis History: Denies: Hx Dialysis, Hx Renal Disease Musculoskeletal History: Denies: Hx Arthritis, Hx Rheumatoid Arthritis, Hx Osteoporosis Sensory History: Denies: Hx Contacts or Glasses, Hx Glaucoma, Hx Deafness, Hx Hearing Aid, Hx Hearing Problem Opthamlomology History: Denies: Hx Contacts or Glasses, Hx Glaucoma Neurological History: Denies: Hx Headaches, Hx Seizures, Hx Transient Ischemic Attacks (TIA) Psychiatric History: Reports: Hx Anxiety, Hx Depression, Hx Inpatient Treatment , Hx Community Mental Health Tx, Hx Schizophrenia, Hx Bipolar Disorder, Hx Suicide Attempt Denies: Hx Eating Disorder, Hx Panic Disorder, Hx of Violent Episodes Against Others - Cancer History Hx Chemotherapy: No - Surgical History Surgery Procedure, Year, and Place: bilat thumb repairs, hernia repairs X 2, cholecystectomy, appendectomy Hx Anesthesia Reactions: No - Immunization History Date of Tetanus Vaccine: UTD Date of Influenza Vaccine: UTD Infectious Disease History: No Infectious Disease History: Denies: Hx Clostridium Difficile, Hx Hepatitis, Hx Human Immunodeficiency Virus (HIV), Hx of Known/Suspected MRSA, Hx Shingles, Hx Tuberculosis, Traveled Outside the [place] in Last 30 Days - Family History Known Family History: Positive: Cardiac Disease - [place], Other - schizophrenia, anxiety Negative: Hypertension, Diabetes Family History: Negative HTN/DM per EMR - Social History Lives: Alone Alcohol Use: Occasionally Hx Substance Use: No Substance Use Type: Reports: None Hx Tobacco Use: Yes Smoking Status (MU): Current Every Day Smoker Type: Cigarettes Amount Used/How Often: half a pack a day Have You Smoked in the Last Year: Yes Review of Systems Positive: Fever, Chills, Fatigue Cardiovascular: Negative Positive: Shortness Of Breath, Cough Positive: Nausea Positive: no symptoms reported Skin: Negative Neurological: Negative Positive: Anxious All Other Systems Reviewed And Are Negative: Yes Physical Exam Triage Information Reviewed: Yes Vital Signs On Initial Exam: Initial Vitals Temp Pulse Resp BP Pulse Ox 97.9 F 95 32 164/76 94 09/19/18 05:50 09/19/18 05:50 09/19/18 05:50 09/19/18 05:50 09/19/18 05:50 Vital Signs Reviewed: Yes Appearance: Positive: Ill-Appearing - tachypnic but alert, speaking and cooperative Skin: Positive: Warm, Skin Color Reflects Adequate Perfusion, Dry Head/Face: Positive: Normal Head/Face Inspection Eyes: Positive: Normal, EOMI, CRISTIAN, Conjunctiva Clear. Negative: Conjunctiva Inflammed, Discharge ENT: Positive: Normal ENT inspection, Hearing grossly normal, Pharynx normal Neck: Positive: Supple, Nontender Respiratory/Lung Sounds: Positive: Decreased Breath Sounds, Rhonchi, Wheezes. Negative: Rales, Stridor, Tracheal Deviation Cardiovascular: Positive: Normal, RRR, S1, S2. Negative: Leg Edema Left, Leg Edema Right Abdomen Description: Positive: Nontender, Soft Bowel Sounds: Positive: Present Musculoskeletal: Positive: Normal, Strength/ROM Intact Neurological: Positive: Alert, Oriented to Person Place, Time, CN Intact II-III , Other - moving lower extremities in an almost tremulous fashion - reports this is not normal and part of her jitteriness Psychiatric: Positive: Anxious - but polite, cooperative - reports she is scared at how difficult it is to breath Diagnostics - Vital Signs Vital Signs Temp Pulse Resp BP Pulse Ox 09/19/18 05:50 97.9 F 95 32 164/76 94 - Laboratory Result Diagrams: 09/19/18 06:24 09/19/18 06:24 Lab Statement: Any lab studies that have been ordered have been reviewed, and results considered in the medical decision making process. Re-Evaluation - Re-Evaluation First Eval Change: Improved - pulse ox improved and appears more comfortable s/p ativan, magnesium, duonebs however she reports she still feels short of breath, difficulty breathing - her tachypnea has improved but still present to some degree - coughing - chest sounds are coarse Course/Dx - Course Course Of Treatment: Pt here for return of COPD exacerbation. Initially ordered Bipap for pt who declined d/t anxiety - pulse ox and tachypnea improved w/ magnesium, duonebs, 2L O2 NC, solumedrol and ativan however reports she still feels SOB and has difficulty breathing - lung sounds are better auscultated and coarse. CXR and ECG were not repeated today and although a CT was considered, pt is currently taking coumadin and is within therapeutic level. Discussed w/ Dr. East who agrees to admit. Vitals and pt stable at time of transition of care. - Diagnoses Provider Diagnoses: COPD exacerbation Discharge - Sign-Out/Discharge Documenting (check all that apply): Patient Departure - Discharge Plan Condition: Stable Disposition: ADMITTED TO [facility] - Billing Disposition and Condition Condition: STABLE Disposition: Admitted to [facility]
[2018-09-19] MEDS ORDERED: LORazepam INJ* 2 MG/ML 1 ML VIAL IV PUSH ONE (06:18)
[2018-09-19] MEDS ORDERED: Albuterol/Ipratropium NEB.SOL* Albuterol 2.5 MG/Ipratropium 0.5 MG 3 ML ONE ×2 (06:28→06:40)
[2018-09-19] MEDS: Albuterol/Ipratropium NEB.SOL* Albuterol 2.5 MG/Ipratropium 0.5 MG 3 ML INH SCH ×8 (06:29→23:08)
[2018-09-19 06:34] LABS: ABS Basophils 0 10^3/ul (0-0.2); ABS Eosinophils 0.2 10^3/ul (0-0.6); ABS Lymphocytes 1.9 10^3/ul (1.0-4.8); ABS Monocytes 0.7 10^3/ul (0-0.8); ABS Neutrophils 3.8 10^3/ul (1.5-7.7); ABS Nucleated RBC 0 10^3/ul; Eosinophil % 2.3 %; Hematocrit 39 % (35-47); Hemoglobin 12.7 g/dl (12.0-16.0); Lymphocyte % 28.7 %; Mean Corpuscular HGB Conc 33 g/dl (31-36); Mean Corpuscular Hemoglobin 28 pg (27-31); Mean Corpuscular Volume 86 fL (80-97); Mean Platelet Volume 8.4 fL (7.4-10.4); Nucleated Red Blood Cells % 0.1; Platelet Count 139 10^3/ul (150-450); Red Blood Count 4.52 10^6/ul (4.00-5.40); Red Cell Distribution Width 15 % (10.5-15); White Blood Count 6.6 10^3/ul (3.5-10.8)
[2018-09-19 06:47] LABS: Activated Partial Thrombo Time 39.7 seconds (26.0-36.3); INR 2.33 (0.77-1.02)
[2018-09-19 06:53] LABS: Albumin 3.6 g/dL (3.2-5.2); Albumin/Globulin Ratio 1.2 (1-3); C Reactive Protein 2.74 mg/L (<8.01); Calcium 10.4 mg/dL (8.6-10.3); EGFR African American 79.3 (>60); EGFR Non-African American 65.5 (>60); Globulin 2.9 g/dL (2-4); Potassium 4.4 mmol/L (3.5-5.0); Total Bilirubin 0.2 mg/dL (0.2-1.0); Total Protein 6.5 g/dL (6.4-8.9)
[2018-09-19 07:35] LABS: Influenza A Molecular NEGATIVE (Negative); Influenza B Molecular NEGATIVE (Negative)
[2018-09-19] MEDS ORDERED: Albuterol/Ipratropium NEB.SOL* Albuterol 2.5 MG/Ipratropium 0.5 MG 3 ML INH ONE (07:58)
[2018-09-19] MEDS ORDERED: Acetaminophen TAB* 325 MG PO PRN (08:35)
[2018-09-19] MEDS ORDERED: Albuterol 2.5 MG/3 ML NEB.SOL* (0.083%) INH PRN (08:37)
[2018-09-19] MEDS ORDERED: Iohexol 350* (CONTRAST) 500 ML MDV IV ONE (08:43)
[2018-09-19] MEDS ORDERED: Warfarin TAB(*) 1 MG PO SCH (09:00)
[2018-09-19] MEDS: Gabapentin CAP(*) 400 MG PO SCH ×2 (10:24→20:19)
[2018-09-19] MEDS: Montelukast Sodium TAB* 10 MG PO SCH (10:24)
[2018-09-19] MEDS: Metoprolol Tartrate TAB* 25 MG PO SCH ×2 (10:24→20:19)
[2018-09-19] MEDS: Isosorbide Mononitrate ER TAB* 30 MG PO SCH (10:24)
[2018-09-19] MEDS: Lithium Carbonate TAB* 300 MG PO SCH ×2 (10:24→20:20)
[2018-09-19] MEDS: amLODIPine TAB* 5 MG PO SCH (10:24)
[2018-09-19] MEDS: Pantoprazole TAB * 40 MG TAB PO SCH (10:24)
[2018-09-19] MEDS: NF:Fluticasone/Vilanterol MDI(NF) 200/25 MDI INH SCH (11:47)
[2018-09-19] MEDS: [UNRECOGNIZED DRUG - OTHER] INH SCH (11:47)
--- NOTE | 2018-09-19 11:55 | HP ---
HISTORY AND PHYSICAL: DATE OF ADMISSION: 09/19/18 CHIEF COMPLAINT: Progressive shortness of breath. HISTORY OF PRESENT ILLNESS: Patient is a 62-year-old lady with history of CAD, tobacco abuse and COPD who was recently admitted and discharged in our facility from 08/30/18 to 09/01/18 due to COPD exacerbation. Since her discharge, unfortunately, she had still been smoking and only stopped smoking when she began having some progressive shortness of breath after her discharge prior to her admission. She mentions that she has been progressively having some shortness of breath and went to the ED 4 days prior to admission and was sent out on some DuoNeb and prednisone at 50 mg; however, her insurance company denied the nebulization ordered in the ED and worsening of her signs and symptoms led to her presentation where she was found to have COPD exacerbation. PAST MEDICAL HISTORY: 1. COPD. 2. Chronic hypoxic respiratory failure requiring 2 L of O2 at nighttime. 3. Hypertension. 4. Peripheral vascular disease. 5. Coronary artery disease. 6. Hyperlipidemia. 7. Schizophrenia. 8. Bipolar disorder. 9. Anxiety. 10. Depression. 11. History of DVT, on chronic warfarin, on the left lower extremity. 12. Mitral regurgitation. PAST SURGICAL HISTORY: 1. Status post appendectomy. 2. Hernia repair x2 3. Right lower extremity stent. 4. Cholecystectomy. MEDICATIONS: Home medications are as follows: 1. Prednisone 50 mg p.o. daily. 2. Amlodipine 10 mg p.o. daily. 3. Warfarin 4.5 mg p.o. daily. 4. Incruse-Ellipta 62.5 mcg inhalation daily. 5. Olanzapine 10 mg p.o. daily. 6. Montelukast 10 mg p.o. daily. 7. Mirtazapine 15 mg p.o. q.h.s. 8. Metoprolol tartrate 25 mg p.o. b.i.d. 9. Ocosta carbonate 300 mg p.o. b.i.d. 10. Isosorbide mononitrate ER 30 mg p.o. daily. 11. Gabapentin 400 mg tab p.o. b.i.d. 12. Breo-Ellipta one puff inhalation daily. 13. Esomeprazole 40 mg p.o. daily. 14. Atorvastatin 10 mg p.o. daily. 15. DuoNeb one neb inhalation q.4. 16. Albuterol 2 puff inhalation q.2 p.r.n. 17. Tylenol 650 mg p.o. q.4 p.r.n. 18. Alprazolam 0.25 mg p.o. q.6 p.r.n. ALLERGIES: BUPROPION, CEPHALOSPORIN, ERYTHROMYCIN, PREDNISONE, TOBRAMYCIN, CHLORPROETHAZINE. FAMILY HISTORY: Mother secondary to COPD, father secondary to an CO, no reported history of diabetes or cancer within the family. SOCIAL HISTORY: She still currently smokes and only stopped a few days prior to admission given she was getting sicker. She has been smoking 1 pack per day for at least 40 years. She does not report any history of alcohol abuse, nor IV drug use. She is disabled and lives alone. She has a surrogate decision maker in the event she is unable to make her own decisions, her friend Crystal Vallejo and her phone number is [phone]. She is a full code. REVIEW OF SYSTEMS: On review of systems, the patient denied any headaches, dizziness, fevers, chills. She does have some significant shortness of breath as discussed. Denied any abdominal pain, diarrhea, constipation, myalgias or arthralgias, frequency on urination. The rest of the 14-point review of systems are otherwise unremarkable. PHYSICAL EXAMINATION GENERAL APPEARANCE: The patient is awake, ill-appearing lady, tachypneic, obese body habitus. VITAL SIGNS: Shows the most recent vital signs of records with blood pressure of 164/79 from previous of 151/79, 94% saturating at 2 L, 23 per minute respiratory rate with heart rate of 96 per minute, temperature of 97.9 degrees. HEENT: Normocephalic, atraumatic. PERRLA. Extraocular muscles intact. Negative for icterus. Moist oral mucosa. NECK: Soft, supple with no cervical lymphadenopathy. Difficulty to assess JVD given body habitus. CHEST: Positive wheezing throughout all lung fl[place] with poor air entry, no rales, no rhonchi appreciated. HEART: S1, S2, within normal limites. Regular rate and rhythm. No murmurs, rubs and gallops. ABDOMEN: Soft, nondistended, nontender. Normoactive bowel sounds x4 quadrant. EXTREMITIES: No cyanosis, clubbing. 2+ left lower extremity edema. PSYCHIATRIC: No active psychosis, depression, suicidal nor homicidal ideations. SKIN: Warm to touch. LABORATORY DATA: Most recent and pertinent labs drawn shows CBC with WBC, H and H that were normal, platelet count mildly low at 139. INR of 2.33, PTT of 39.7. ABG shows pH 7.35, pCO2 59, pO2 75. Sodium and potassium 140 and 4.4. BUN and creatinine of 15 and 0.88. LFTs were found to be normal. Rapid flu screen were both negative for influenza A and B. ASSESSMENT AND PLAN: The patient is a 62-year-old lady with history of hypertension, coronary artery disease as well as chronic obstructive pulmonary disease, who still smokes and has had multiple admissions for chronic obstructive pulmonary disease exacerbation, comes today with shortness of breath likely due to chronic obstructive pulmonary disease exacerbation due to tobacco abuse. 1. Shortness of breath likely secondary to chronic obstructive pulmonary disease exacerbation due to persistent smoking. We will place the patient on DuoNeb as well as albuterol as well as Solu-Medrol ordered. We will continue montelukast and Incruse Ellipta. We will also rule out patient for a pulmonary embolism, given her left lower extremity edema with history of deep vein thrombosis many years ago. I am concerned that there might be an intrinsic pulmonary embolism or patient could be clotting despite being fully anticoagulated with therapeutic INR. We will check Doppler ultrasound of left lower extremity as well as will obtain CT angio to image both lung parenchyma and to rule out pulmonary embolism. We will trend troponins as patient has history of coronary artery disease. 2. Hypertension. Continue metoprolol and amlodipine. 3. Gastroesophageal reflux disease, we will place patient on pantoprazole and will continue watchful waiting. 4. Schizophrenia. We will continue olanzapine. 5. Tobacco abuse. Advised lifestyle modification. We will place the patient on nicotine patch as well as nicotine inhalers p.r.n. 6. Left lower extremity edema. We will obtain Doppler ultrasound as discussed. 8. DVT prophylaxis, will continue warfarin at this time while we are working her up for any persistent venous thromboembolism. 9. Disposition: For PT evaluation. [id number]/[facility] #: [id number] ANNITA
[2018-09-19] MEDS: Acetylcysteine CAP (RENAL)* 600 MG PO SCH ×2 (13:49→20:19)
[2018-09-19] MEDS: OLANzapine TAB* 10 MG PO SCH (13:49)
[2018-09-19] MEDS: methylPREDNISolone SOD 40 MG* 1 ML VIAL IV SCH ×2 (13:50→21:20)
[2018-09-19] MEDS: Nicotine Inhaler* 10 MG AMP INH PRN (13:51)
[2018-09-19] MEDS: Atorvastatin* 10 MG TAB PO SCH (17:22)
[2018-09-19] MEDS: Warfarin TAB(*) 1 MG PO SCH (17:22)
[2018-09-19] MEDS: DOXYcycline CAP(*) 100 MG PO SCH (20:19)
[2018-09-19] MEDS: Mirtazapine TAB* 15 MG PO SCH (20:20)
[2018-09-19] MEDS: Nicotine Patch Removal NOTE FOLLOW UP SCH (20:22)
[2018-09-20] MEDS: Nicotine Inhaler* 10 MG AMP INH PRN ×3 (01:04→16:29)
[2018-09-20] MEDS: Albuterol/Ipratropium NEB.SOL* Albuterol 2.5 MG/Ipratropium 0.5 MG 3 ML INH SCH ×5 (03:46→19:48)
[2018-09-20] MEDS: methylPREDNISolone SOD 40 MG* 1 ML VIAL IV SCH ×2 (05:56→13:04)
[2018-09-20 06:57] LABS: ABS Basophils 0 10^3/ul (0-0.2); ABS Eosinophils 0 10^3/ul (0-0.6); ABS Lymphocytes 0.9 10^3/ul (1.0-4.8); ABS Monocytes 0.3 10^3/ul (0-0.8); ABS Neutrophils 5.5 10^3/ul (1.5-7.7); ABS Nucleated RBC 0 10^3/ul; Eosinophil % 0 %; Hematocrit 37 % (35-47); Hemoglobin 12.2 g/dl (12.0-16.0); Lymphocyte % 12.9 %; Mean Corpuscular HGB Conc 33 g/dl (31-36); Mean Corpuscular Hemoglobin 28 pg (27-31); Mean Corpuscular Volume 86 fL (80-97); Mean Platelet Volume 8.5 fL (7.4-10.4); Nucleated Red Blood Cells % 0.1; Platelet Count 173 10^3/ul (150-450); Red Blood Count 4.34 10^6/ul (4.00-5.40); Red Cell Distribution Width 15 % (10.5-15); White Blood Count 6.6 10^3/ul (3.5-10.8)
[2018-09-20 07:14] LABS: Albumin 3.6 g/dL (3.2-5.2); Albumin/Globulin Ratio 1.2 (1-3); BUN/Creatinine Ratio 23.3 (8-20); Calcium 10.5 mg/dL (8.6-10.3); EGFR African American 66.1 (>60); EGFR Non-African American 54.7 (>60); Phosphorus 4.2 mg/dL (2.5-5.0); Potassium 4.7 mmol/L (3.5-5.0); Total Bilirubin 0.3 mg/dL (0.2-1.0); Total Protein 6.6 g/dL (6.4-8.9)
[2018-09-20] MEDS: Metoprolol Tartrate TAB* 25 MG PO SCH ×2 (08:37→21:11)
[2018-09-20] MEDS: amLODIPine TAB* 5 MG PO SCH (08:39)
[2018-09-20] MEDS: Isosorbide Mononitrate ER TAB* 30 MG PO SCH (08:39)
[2018-09-20] MEDS: Nicotine PATCH 21 MG/24 HR* PATCH TRANSDERM SCH (08:39)
[2018-09-20] MEDS: Acetylcysteine CAP (RENAL)* 600 MG PO SCH ×2 (08:39→21:10)
[2018-09-20] MEDS: Pantoprazole TAB * 40 MG TAB PO SCH (08:40)
[2018-09-20] MEDS: OLANzapine TAB* 10 MG PO SCH (08:40)
[2018-09-20] MEDS: NF:Fluticasone/Vilanterol MDI(NF) 200/25 MDI INH SCH (08:40)
[2018-09-20] MEDS: Montelukast Sodium TAB* 10 MG PO SCH (08:40)
[2018-09-20] MEDS: Lithium Carbonate TAB* 300 MG PO SCH ×2 (08:40→21:11)
[2018-09-20] MEDS: Gabapentin CAP(*) 100 MG PO SCH ×2 (08:40→21:11)
[2018-09-20] MEDS: DOXYcycline CAP(*) 100 MG PO SCH ×2 (08:40→21:11)
[2018-09-20] MEDS: [UNRECOGNIZED DRUG - OTHER] INH SCH (08:41)
[2018-09-20 10:33] LABS: INR 2.25 (0.77-1.02)
--- NOTE | 2018-09-20 14:10 | PN ---
Subjective Date of Service: 09/20/18 Interval History: Pt seen and examined. Meds and labs reviewed. Per RN report, pt was thought to be slightly lethargic last night, which has now resolved on my visit today. CC: SOB improving ROS: Denied HERRERA/dizziness, F/C, N/V, CP, SOB, increased cough, sputum production , abd pain, diarrhea, constipation, dysuria, myalgias, arthralgias, throat pain , and new skin lesions. The rest of the 14 point ROS are unremarkable. PHYSICAL EXAM: GEN APPEARANCE: Awake, not in acute distress HEENT: NC/AT, PERRLA, moist oral mucosa, (-) throat erythema NECK: Soft, supple, (-) cervical LAD, (-)JVD HEART: S1S2 WNL, RRR, No MRG CHEST: CTA, BL, GAE, No (+)mild wheezing, improved air entry/R/R ABD: Soft, ND/NT, NABS 4x Q EXT: No C/C/E SKIN: Warm to touch PSYCH: No active psychosis, hallucinations, depression, SI/HI Objective Active Medications: Acetaminophen (Tylenol Tab*) 650 mg PO Q4H PRN PRN Reason: FEVER/PAIN Acetylcysteine (Acetylcysteine Cap (Renal)*) 1,200 mg PO BID [facility] Stop: 09/20/18 21:01 Last Admin: 09/20/18 08:39 Dose: 1,200 mg Albuterol (Ventolin 2.5 Mg/3 Ml Neb.Tania*) 2.5 mg INH Q2H PRN PRN Reason: SOB/WHEEZING Albuterol/Ipratropium (Duoneb (Albuterol 2.5 Mg/Ipratropium 0.5 Mg)) 1 neb INH [id number] AWAKE [facility] Last Admin: 09/20/18 11:27 Dose: 1 neb Amlodipine Besylate (Norvasc Tab*) 10 mg PO DAILY [facility] Last Admin: 09/20/18 08:39 Dose: 10 mg Atorvastatin Calcium (Lipitor*) 10 mg PO 1700 [facility] Last Admin: 09/19/18 17:22 Dose: 10 mg Doxycycline Hyclate (Vibramycin Cap(*)) 100 mg PO BID [facility] Stop: 09/24/18 20:59 Last Admin: 09/20/18 08:40 Dose: 100 mg Fluticasone/Vilanterol (Breo Ellipta Mdi 200/25(Nf)) 1 puff INH DAILY [facility] Last Admin: 09/20/18 08:40 Dose: Not Given Gabapentin (Neurontin Cap(*)) 200 mg PO BID [facility] Last Admin: 09/20/18 08:40 Dose: 200 mg Isosorbide Mononitrate (Imdur Er Tab*) 30 mg PO DAILY [facility] Last Admin: 09/20/18 08:39 Dose: 30 mg Vaiva Vo Carbonate (Vaiva Vo Carbonate Tab*) 300 mg PO BID [facility] Last Admin: 09/20/18 08:40 Dose: 300 mg Methylprednisolone Sodium Succinate (Solu-Medrol 125mg *) 60 mg IV Q8H [facility] Metoprolol Tartrate (Lopressor Tab*) 25 mg PO BID [facility] Last Admin: 09/20/18 08:37 Dose: Not Given Mirtazapine (Remeron Tab*) 15 mg PO BEDTIME [facility] Last Admin: 09/19/18 20:20 Dose: 15 mg Montelukast Sodium (Singulair Tab*) 10 mg PO DAILY [facility] Last Admin: 09/20/18 08:40 Dose: 10 mg Nicotine (Nicotine Inhaler*) 10 mg INH Q2H PRN PRN Reason: CRAVING Last Admin: 09/20/18 09:34 Dose: 10 mg Nicotine (Nicotine Patch 21 Mg/24 Hr*) 1 patch TRANSDERM DAILY@0800 [facility] Last Admin: 09/20/18 08:39 Dose: 1 patch Olanzapine (Zyprexa Tab*) 10 mg PO DAILY [facility] Last Admin: 09/20/18 08:40 Dose: 10 mg Pantoprazole Sodium (Protonix Tab *) 40 mg PO DAILY [facility] Last Admin: 09/20/18 08:40 Dose: 40 mg Pharmacy Profile Note (Nicotine Patch Removal Note*) 1 note FOLLOW UP 2100 [facility] Last Admin: 09/19/18 20:22 Dose: Not Given Umeclidinium [place] (Incruse Ellipta Mdi (Nf)) 1 inh INH DAILY [facility] Last Admin: 09/20/18 08:41 Dose: Not Given Warfarin Sodium (Coumadin Tab(*)) 4.5 mg PO DAILY@1700 [facility]; Protocol Last Admin: 09/19/18 17:22 Dose: 4.5 mg Vital Signs - 8 hr 09/20/18 09/20/1819 07:34 08:00 08:40 Temperature 97.8 F Pulse Rate 52 94 Respiratory 18 20 18 Rate Blood Pressure 123/42 (mmHg) O2 Sat by Pulse 99 99 Oximetry 09/20/18 09/20/18 09/20/18 11:02 11:14 11:27 Temperature 97.6 F Pulse Rate 102 98 Respiratory 18 18 Rate Blood Pressure 147/47 (mmHg) O2 Sat by Pulse 91 99 Oximetry 09/20/18 11:31 Temperature Pulse Rate 99 Respiratory 18 Rate Blood Pressure (mmHg) O2 Sat by Pulse 98 Oximetry Oxygen Devices in Use Now: Nasal Cannula Result Diagrams: 09/20/18 06:36 09/20/18 06:36 Microbiology and Other Data: Microbiology 09/19/18 07:09 Influenza Types A,B Antigen - Final Nasopharyngeal Specimen received for Influenza A/B Molecular testing Assess/Plan/Problems-Billing Assessment: - Patient Problems (1) COPD exacerbation Current Visit: No Status: Acute Priority: Medium Code(s): J44.1 - CHRONIC OBSTRUCTIVE PULMONARY DISEASE W (ACUTE) EXACERBATION SNOMED Code(s): 347738920 Comment: -ABG ordered but could not be obtained -Will order VBG -Pt R/O for DVT of LLED and PE w/CTA Chest -Continue nebulizations as prescribed -Will increase Solumedrol dose -Started pt on Doxycycline due to moderate to severe COPD exacerbation (2) HTN (hypertension) Current Visit: No Status: Acute Code(s): I10 - ESSENTIAL (PRIMARY) HYPERTENSION SNOMED Code(s): 19754517 Comment: Controlled Continue Imdur, Lopressor, norvasc (3) Hypertension Current Visit: No Status: Chronic Priority: Medium Code(s): I10 - ESSENTIAL (PRIMARY) HYPERTENSION SNOMED Code(s): 95375789 Comment: -Well controlled -Continue Amlodipine (4) GERD (gastroesophageal reflux disease) Current Visit: No Status: Chronic Code(s): K21.9 - GASTRO-ESOPHAGEAL REFLUX DISEASE WITHOUT ESOPHAGITIS SNOMED Code(s): 060300352 Comment: -Well-controlled -Continue Pantoprazole (5) Schizoaffective disorder, bipolar type Current Visit: No Status: Chronic Priority: Medium Onset Date: 09/29/15 Code(s): F25.0 - SCHIZOAFFECTIVE DISORDER, BIPOLAR TYPE SNOMED Code(s): 27287430 Comment: -Continue Olanzapine -Decreased gabapentin due to reports of lethargy (6) DVT prophylaxis Current Visit: No Status: Acute Priority: Medium Code(s): KAD8136 - SNOMED Code(s): 995685482 Comment: -Continue Coumadin Status and Disposition: -For PT eval
[2018-09-20] MEDS: Atorvastatin* 10 MG TAB PO SCH (16:31)
[2018-09-20] MEDS: Warfarin TAB(*) 1 MG PO SCH (16:33)
[2018-09-20] MEDS: methylPREDNISolone 125 MG* 2 ML VIAL IV SCH (21:11)
[2018-09-20] MEDS: Mirtazapine TAB* 15 MG PO SCH (21:11)
[2018-09-20] MEDS: Nicotine Patch Removal NOTE FOLLOW UP SCH (21:12)
[2018-09-21] MEDS: Albuterol/Ipratropium NEB.SOL* Albuterol 2.5 MG/Ipratropium 0.5 MG 3 ML INH SCH ×7 (00:09→23:45)
[2018-09-21] MEDS: Melatonin 3 MG TAB PO SCH ×2 (02:04→19:17)
[2018-09-21] MEDS: methylPREDNISolone 125 MG* 2 ML VIAL IV SCH ×3 (05:15→19:17)
[2018-09-21 06:00] LABS: Hematocrit 36 % (35-47); Mean Corpuscular HGB Conc 33 g/dl (31-36); Mean Corpuscular Hemoglobin 28 pg (27-31); Mean Corpuscular Volume 85 fL (80-97); Mean Platelet Volume 8.3 fL (7.4-10.4); Platelet Count 202 10^3/ul (150-450); Red Blood Count 4.25 10^6/ul (4.00-5.40); Red Cell Distribution Width 15 % (10.5-15); White Blood Count 8.1 10^3/ul (3.5-10.8)
[2018-09-21 06:06] LABS: INR 2.17 (0.77-1.02)
[2018-09-21 06:18] LABS: Albumin 3.3 g/dL (3.2-5.2); Albumin/Globulin Ratio 1.3 (1-3); BUN/Creatinine Ratio 31.9 (8-20); Calcium 10.4 mg/dL (8.6-10.3); EGFR African American 73.5 (>60); EGFR Non-African American 60.7 (>60); Globulin 2.5 g/dL (2-4); Magnesium 1.9 mg/dL (1.9-2.7); Phosphorus 3.3 mg/dL (2.5-5.0); Potassium 4.7 mmol/L (3.5-5.0); Total Bilirubin 0.3 mg/dL (0.2-1.0); Total Protein 5.8 g/dL (6.4-8.9)
[2018-09-21] MEDS: [UNRECOGNIZED DRUG - OTHER] INH SCH (07:20)
[2018-09-21] MEDS: NF:Fluticasone/Vilanterol MDI(NF) 200/25 MDI INH SCH (07:20)
[2018-09-21] MEDS: Nicotine Inhaler* 10 MG AMP INH PRN ×4 (08:21→23:03)
[2018-09-21] MEDS: Gabapentin CAP(*) 100 MG PO SCH ×2 (08:21→19:17)
[2018-09-21] MEDS: Isosorbide Mononitrate ER TAB* 30 MG PO SCH (08:22)
[2018-09-21] MEDS: Pantoprazole TAB * 40 MG TAB PO SCH (08:22)
[2018-09-21] MEDS: DOXYcycline CAP(*) 100 MG PO SCH ×2 (08:22→19:17)
[2018-09-21] MEDS: amLODIPine TAB* 5 MG PO SCH (08:22)
[2018-09-21] MEDS: OLANzapine TAB* 10 MG PO SCH (08:23)
[2018-09-21] MEDS: Montelukast Sodium TAB* 10 MG PO SCH (08:23)
[2018-09-21] MEDS: Lithium Carbonate TAB* 300 MG PO SCH ×2 (08:23→19:17)
[2018-09-21] MEDS: Metoprolol Tartrate TAB* 25 MG PO SCH ×2 (08:23→19:17)
[2018-09-21] MEDS: Nicotine PATCH 21 MG/24 HR* PATCH TRANSDERM SCH (08:23)
--- NOTE | 2018-09-21 12:49 | PN ---
Subjective Date of Service: 09/21/18 Interval History: Pt seen and examined. Meds and labs reviewed. CC: Pt mentions she feels significantly better ROS: Denied HERRERA/dizziness, F/C, N/V, CP, SOB, increased cough, sputum production , abd pain, diarrhea, constipation, dysuria, myalgias, arthralgias, throat pain , and new skin lesions. The rest of the 14 point ROS are unremarkable. PHYSICAL EXAM: GEN APPEARANCE: Awake, not in acute distress HEENT: NC/AT, PERRLA, moist oral mucosa, (-) throat erythema NECK: Soft, supple, (-) cervical LAD, (-)JVD HEART: S1S2 WNL, RRR, No MRG CHEST: CTA, BL, GAE, No (+)mild wheezing, (+)GAE/R/R ABD: Soft, ND/NT, NABS 4x Q EXT: No C/C/E SKIN: Warm to touch PSYCH: No active psychosis, hallucinations, depression, SI/HI Objective Active Medications: Acetaminophen (Tylenol Tab*) 650 mg PO Q4H PRN PRN Reason: FEVER/PAIN Albuterol (Ventolin 2.5 Mg/3 Ml Neb.Tania*) 2.5 mg INH Q2H PRN PRN Reason: SOB/WHEEZING Albuterol/Ipratropium (Duoneb (Albuterol 2.5 Mg/Ipratropium 0.5 Mg)) 1 neb INH [id number] AWAKE [facility] Last Admin: 09/21/18 11:01 Dose: 1 neb Amlodipine Besylate (Norvasc Tab*) 10 mg PO DAILY [facility] Last Admin: 09/21/18 08:22 Dose: 10 mg Atorvastatin Calcium (Lipitor*) 10 mg PO 1700 [facility] Last Admin: 09/20/18 16:31 Dose: 10 mg Doxycycline Hyclate (Vibramycin Cap(*)) 100 mg PO BID [facility] Stop: 09/24/18 20:59 Last Admin: 09/21/18 08:22 Dose: 100 mg Fluticasone/Vilanterol (Breo Ellipta Mdi 200/25(Nf)) 1 puff INH DAILY [facility] Last Admin: 09/21/18 07:20 Dose: Not Given Gabapentin (Neurontin Cap(*)) 200 mg PO BID [facility] Last Admin: 09/21/18 08:21 Dose: 200 mg Isosorbide Mononitrate (Imdur Er Tab*) 30 mg PO DAILY [facility] Last Admin: 09/21/18 08:22 Dose: 30 mg [place] Carbonate (Dubach Carbonate Tab*) 300 mg PO BID [facility] Last Admin: 09/21/18 08:23 Dose: 300 mg Melatonin (Melatonin) 3 mg PO BEDTIME [facility] Last Admin: 09/21/18 02:04 Dose: 3 mg Methylprednisolone Sodium Succinate (Solu-Medrol 125mg *) 60 mg IV Q8H [facility] Last Admin: 09/21/18 05:15 Dose: 60 mg Metoprolol Tartrate (Lopressor Tab*) 25 mg PO BID [facility] Last Admin: 09/21/18 08:23 Dose: 25 mg Mirtazapine (Remeron Tab*) 15 mg PO BEDTIME [facility] Last Admin: 09/20/18 21:11 Dose: 15 mg Montelukast Sodium (Singulair Tab*) 10 mg PO DAILY [facility] Last Admin: 09/21/18 08:23 Dose: 10 mg Nicotine (Nicotine Inhaler*) 10 mg INH Q2H PRN PRN Reason: CRAVING Last Admin: 09/21/18 11:26 Dose: 10 mg Nicotine (Nicotine Patch 21 Mg/24 Hr*) 1 patch TRANSDERM DAILY@0800 [facility] Last Admin: 09/21/18 08:23 Dose: 1 patch Olanzapine (Zyprexa Tab*) 10 mg PO DAILY [facility] Last Admin: 09/21/18 08:23 Dose: 10 mg Pantoprazole Sodium (Protonix Tab *) 40 mg PO DAILY [facility] Last Admin: 09/21/18 08:22 Dose: 40 mg Pharmacy Profile Note (Nicotine Patch Removal Note*) 1 note FOLLOW UP 2100 [facility] Last Admin: 09/20/18 21:12 Dose: 1 note Umeclidinium [place] (Incruse Ellipta Mdi (Nf)) 1 inh INH DAILY [facility] Last Admin: 09/21/18 07:20 Dose: Not Given Warfarin Sodium (Coumadin Tab(*)) 4.5 mg PO DAILY@1700 [facility]; Protocol Last Admin: 09/20/18 16:33 Dose: 4.5 mg Vital Signs - 8 hr 09/21/18 09/21/18 09/21/18 07:20 07:30 08:00 Temperature 97.6 F Pulse Rate 43 95 Respiratory 20 20 Rate Blood Pressure 118/38 (mmHg) O2 Sat by Pulse 97 91 95 Oximetry 09/21/18 09/21/18 08:21 11:22 Temperature 98.0 F Pulse Rate 66 Respiratory 20 16 Rate Blood Pressure 135/47 (mmHg) O2 Sat by Pulse 91 Oximetry Oxygen Devices in Use Now: Nasal Cannula Result Diagrams: 09/21/18 05:42 09/21/18 05:42 Microbiology and Other Data: Microbiology 09/19/18 07:09 Influenza Types A,B Antigen - Final Nasopharyngeal Specimen received for Influenza A/B Molecular testing Assess/Plan/Problems-Billing Assessment: - Patient Problems (1) COPD exacerbation Current Visit: No Status: Acute Priority: Medium Code(s): J44.1 - CHRONIC OBSTRUCTIVE PULMONARY DISEASE W (ACUTE) EXACERBATION SNOMED Code(s): 232194997 Comment: -VBG ordered yesterday was reassuring -Pt R/O for DVT of LLE and PE w/CTA Chest -Continue nebulizations as prescribed -Continue Solumedrol dose -Continue Doxycycline due to moderate to severe COPD exacerbation -Consider Roflumilast on D/C to lessen readmissions -Pt advised to stop smoking (2) Hypertension Current Visit: No Status: Chronic Priority: Medium Code(s): I10 - ESSENTIAL (PRIMARY) HYPERTENSION SNOMED Code(s): 29629296 Comment: -Well controlled -Continue Imdur, Metoprolol, norvasc (3) GERD (gastroesophageal reflux disease) Current Visit: No Status: Chronic Code(s): K21.9 - GASTRO-ESOPHAGEAL REFLUX DISEASE WITHOUT ESOPHAGITIS SNOMED Code(s): 611227965 Comment: -Well-controlled -Continue Pantoprazole (4) Schizoaffective disorder, bipolar type Current Visit: No Status: Chronic Priority: Medium Onset Date: 09/29/15 Code(s): F25.0 - SCHIZOAFFECTIVE DISORDER, BIPOLAR TYPE SNOMED Code(s): 63631914 Comment: -Continue Olanzapine -Decreased gabapentin due to reports of lethargy (5) DVT prophylaxis Current Visit: No Status: Acute Priority: Medium Code(s): BML5351 - SNOMED Code(s): 883289456 Comment: -Continue Coumadin Status and Disposition: -Appreciate PT eval; no identified needs at this time -Unfortunately pt requires 6L still when ambulating; w/c is quite high on weekend D/C -Consider D/C in 1-2 days
[2018-09-21] MEDS: Warfarin TAB(*) 1 MG PO SCH (16:36)
[2018-09-21] MEDS: Atorvastatin* 10 MG TAB PO SCH (16:36)
[2018-09-21] MEDS: Mirtazapine TAB* 15 MG PO SCH (19:17)
[2018-09-21] MEDS: Nicotine Patch Removal NOTE FOLLOW UP SCH (19:38)
[2018-09-22] MEDS: Albuterol/Ipratropium NEB.SOL* Albuterol 2.5 MG/Ipratropium 0.5 MG 3 ML INH SCH ×3 (03:34→11:32)
[2018-09-22] MEDS: methylPREDNISolone 125 MG* 2 ML VIAL IV SCH ×2 (05:17→12:20)
[2018-09-22] MEDS: Nicotine Inhaler* 10 MG AMP INH PRN ×3 (05:43→13:15)
[2018-09-22 07:02] LABS: ABS Basophils 0 10^3/ul (0-0.2); ABS Eosinophils 0 10^3/ul (0-0.6); ABS Lymphocytes 0.6 10^3/ul (1.0-4.8); ABS Monocytes 0.2 10^3/ul (0-0.8); ABS Neutrophils 5.6 10^3/ul (1.5-7.7); ABS Nucleated RBC 0 10^3/ul; Eosinophil % 0 %; Hematocrit 39 % (35-47); Hemoglobin 12.7 g/dl (12.0-16.0); Lymphocyte % 9.3 %; Mean Corpuscular HGB Conc 32 g/dl (31-36); Mean Corpuscular Hemoglobin 28 pg (27-31); Mean Corpuscular Volume 85 fL (80-97); Mean Platelet Volume 8.1 fL (7.4-10.4); Nucleated Red Blood Cells % 0.2; Platelet Count 181 10^3/ul (150-450); Red Blood Count 4.61 10^6/ul (4.00-5.40); Red Cell Distribution Width 15 % (10.5-15); White Blood Count 6.5 10^3/ul (3.5-10.8)
[2018-09-22 07:10] LABS: INR 2.02 (0.77-1.02)
[2018-09-22 07:29] LABS: Albumin 3.3 g/dL (3.2-5.2); Albumin/Globulin Ratio 1.3 (1-3); BUN/Creatinine Ratio 32.1 (8-20); Calcium 10.1 mg/dL (8.6-10.3); EGFR Non-African American 52.9 (>60); Globulin 2.6 g/dL (2-4); Magnesium 1.8 mg/dL (1.9-2.7); Phosphorus 3.7 mg/dL (2.5-5.0); Potassium 4.6 mmol/L (3.5-5.0); Total Bilirubin 0.3 mg/dL (0.2-1.0); Total Protein 5.9 g/dL (6.4-8.9)
[2018-09-22] MEDS: Metoprolol Tartrate TAB* 25 MG PO SCH (08:11)
[2018-09-22] MEDS: DOXYcycline CAP(*) 100 MG PO SCH (08:11)
[2018-09-22] MEDS: OLANzapine TAB* 10 MG PO SCH (08:11)
[2018-09-22] MEDS: Montelukast Sodium TAB* 10 MG PO SCH (08:11)
[2018-09-22] MEDS: Lithium Carbonate TAB* 300 MG PO SCH (08:11)
[2018-09-22] MEDS: amLODIPine TAB* 5 MG PO SCH (08:11)
[2018-09-22] MEDS: Pantoprazole TAB * 40 MG TAB PO SCH (08:11)
[2018-09-22] MEDS: Nicotine PATCH 21 MG/24 HR* PATCH TRANSDERM SCH (08:12)
[2018-09-22] MEDS: Isosorbide Mononitrate ER TAB* 30 MG PO SCH (08:12)
[2018-09-22] MEDS: Gabapentin CAP(*) 100 MG PO SCH (08:12)
[2018-09-22] MEDS: NF:Fluticasone/Vilanterol MDI(NF) 200/25 MDI INH SCH (08:49)
[2018-09-22] MEDS: [UNRECOGNIZED DRUG - OTHER] INH SCH (08:50)
[2018-09-22] MEDS ORDERED: Magnesium Sulfate 2 GM IV* 2 GM/50 ML BAG IVPB ONE (09:30)
[2018-09-22 11:36] VITALS: BP 134/57
[2018-09-22 12:09] LABS: Ur Urea Nitrogen Concentration 276 mg/dL; Urine Sodium Concentration < 18 mmol/L
[2018-09-22] MEDS ORDERED: Warfarin TAB(*) 5 MG PO SCH (17:00)
--- NOTE | 2018-09-22 17:18 | DS ---
CC: Dr. Ketan Hanley; Dr. Tom Schrader * DISCHARGE SUMMARY: DATE OF ADMISSION: DATE OF DISCHARGE: 09/22/18 DISCHARGE DIAGNOSES: As follows: 1. Chronic obstructive pulmonary disease exacerbation, moderate to severe due to persistent smoking, improved. 2. Tobacco abuse. 3. Possible contrast-induced nephropathy, mild; the patient to repeat blood draws in 2 days. 4. History of hypertension. 5. History of gastroesophageal reflux disease. DISCHARGE MEDICATIONS: As follows: 1. Tylenol 650 mg p.o. q.4 p.r.n. 2. Amlodipine 10 mg p.o. daily. 3. Atorvastatin 10 mg p.o. daily. 4. Doxycycline 100 mg p.o. b.i.d. for 2 more days. 5. Breo Ellipta 1 puff inhalation daily. 6. Gabapentin 400 mg p.o. b.i.d. 7. Isosorbide mononitrate ER 30 mg p.o. daily. 8. [place] carbonate 300 mg p.o. b.i.d. 9. Melatonin 3 mg p.o. q.h.s. 10. Metoprolol tartrate 25 mg p.o. b.i.d. 11. Mirtazapine 15 mg p.o. q.h.s. 12. Montelukast 10 mg p.o. daily. 13. Nicotine inhaler 10 mg inhalation q.2 hours p.r.n. 14. Nicotine patch 21 mg 24-hour patch, 1 patch transdermal daily. 15. Olanzapine 10 mg p.o. daily. 16. Incruse Ellipta 62.5 mcg inhalation daily. 17. Warfarin 5 mg p.o. daily. The patient to repeat INR in 2 days given this was increased from 4.5 to 5 mg. 18. Albuterol nebulization 2.5 mg inhalation q.2 p.r.n. 19. Albuterol 2 puffs inhalation q.4 p.r.n. 20. DuoNeb 1 neb inhalation q.4. 21. Buspirone 10 mg p.o. b.i.d. 22. Esomeprazole 40 mg p.o. daily. 23. Hydroxyzine 50 mg p.o. 4 times daily p.r.n. 24. Floranex tabs 2 tabs p.o. daily for 5 days, then stop. HISTORY OF PRESENT ILLNESS/HOSPITAL COURSE: The patient is a 62-year-old lady with history of CAD, tobacco abuse and COPD, who was admitted on 09/19/18 due to progressive shortness of breath where she mentioned she had increased cough and sputum production, was also having progressive shortness of breath as well as mild lethargy on admission. She was diagnosed with moderate- to-severe COPD and was placed on doxycycline, high dose Solu-Medrol and frequent nebulization. This has improved her condition, but was advised multiple times to quit smoking and likely cause of COPD is due to her persistent tobacco abuse history given her noncompliance. She mentions that she has thought about it and would definitely try her best to stop smoking. She had been placed on nicotine inhaler and nicotine patch to control her cravings. She was also ruled out for both DVT of her left lower extremity where she mentions she usually has trace edema in the area due to her previous DVT, as well as a CT angio. Unfortunately, prior to her discharge, she began having some mild renal insufficiency, but is otherwise asymptomatic. Her calculated FEUrea is 46.51 and likely pointing to an intrinsic renal disease and given this is acute with a negative ultrasound suggestive of any significant hydronephrosis per my conversation with a radiologist, it is likely that she has had mild contrast-induced renal nephropathy given her recent CT angio. She had been offered another overnight stay to further watch her renal functions, but she declined given she mentions that she feels well and would like to go home and hence we will defer. Instead, she had been advised to have a repeat renal function test or a BMP 2 days post her discharge along with a repeat INR given her Coumadin was adjusted from 4.5 to 5 mg and to discuss both of these results with her primary care physician. She will be discharged home improved otherwise. She had been advised to follow up and/or call her PCP within 3 days post discharge. I have spoken with Dr. Jeffery, her radiologist and mentioned that she does not have any hydronephrosis and this was explained to her as there being no mass causing obstruction of flow of her urine that can cause renal insufficiency. Given her mild renal insufficiency and good oral intake as well as being in the positive in terms of I's and O's prior to her discharge with no signs of dehydration, it is thought that her mild renal insufficiency is due to some mild contrast-induced nephropathy when she was ruled out for CT angio despite receiving acetylcysteine prophylactically. She had been advised that her renal function should improve and should normalize in a couple of days to a week and hence she was advised to repeat her blood work to test for her renal function tests in 2 days post discharge and to discuss the above results with her PCP. She had been advised to stop smoking and not doing so can lead to end- stage COPD and continuing to do so will further shorten her lifespan and further cause frequent readmissions for COPD exacerbation. She had been advised that smoking is also ill-advised when she is on oxygen as oxygen is flammable. She was informed that her INR has been slowly decreasing during her hospital course. As a consequence, her Coumadin was increased from 4.5 to 5 mg daily. She was advised to recheck her INR in 2 days together with her repeat blood draws to check up on her renal functions and discuss results with her PCP. She was advised to continue O2 at 2 L on exertion until she is retested by her PCP and was told that she can continue her nightly O2. She was advised that if her symptoms resume or develops new ones or feel unwell for any reason, to call her PCP first. If her PCP cannot entertain her due to scheduling issues alone, she was advised to call [facility] if the issue is nonemergent. She was advised to avoid any type of sedatives and therefore to discontinue alprazolam and instead she had been placed on buspirone for anxiety. If any acute anxiety transpires, she was advised and prescribed hydroxyzine. She was advised to call my office regarding any questions, concerns, or further clarifications regarding her discharge plans and/or prescriptions and to take her medications as prescribed. REVIEW OF SYSTEMS: The patient currently denies any headaches, dizziness, fevers, chills, nausea, vomiting, chest pain, shortness of breath, increased coughing or sputum production, abdominal pain, diarrhea, constipation, pain and/ or increased frequency on urination, myalgias, arthralgias, throat pain, or new skin lesions. The rest of the 14-point review of systems is otherwise unremarkable. PHYSICAL EXAMINATION: Shows the most recent vital signs of record with blood pressure of 134/57, saturating at 98% on 2 L nasal cannula, 18 per minute respiratory rate, 98 beats per minute heart rate, 97.3 degrees Fahrenheit temperature. General Appearance: The patient is awake, alert, and oriented x3 , not in acute distress. HEENT: Normocephalic, atraumatic. PERRLA. Extraocular muscles intact. Negative for icterus. Moist oral mucosa. Negative throat erythema. Neck is soft, supple with no cervical lymphadenopathy , no JVD. Heart: S1, S2 within normal limits. Regular rate and rhythm. No murmurs, rubs, or gallops. Chest: Clear to auscultation bilaterally. Good air entry. No wheezes, rales, or rhonchi. Abdomen is soft, nondistended, nontender. Normoactive bowel sounds x4 quadrants. Extremities: No cyanosis or clubbing with 1+ left lower extremity edema. Psychiatric: No active psychosis, depression, suicidal or homicidal ideation. Skin is warm to touch. TIME SPENT: The total time spent evaluating the patient, reviewing pertinent data, and appropriate documentation is 65 minutes. [id number]/[facility] #: [id number] [facility]
== END 2018-09-22 14:20 | disposition home or self-care (01) | DRG 191 ==
LOC: ED 05:46 → MEDTELE 08:33
PROVIDERS: ADMIT Student in an Organized Health Care Education/Training Program; ATTEND Student in an Organized Health Care Education/Training Program
DX: J44.1 Chronic obstructive pulmonary disease with (acute) exacerbation (principal); J96.11 Chronic respiratory failure with hypoxia; Z99.81 Dependence on supplemental oxygen; F25.0 Schizoaffective disorder, bipolar type; I11.9 Hypertensive heart disease without heart failure; F17.210 Nicotine dependence, cigarettes, uncomplicated; N14.1 Nephropathy induced by other drugs, medicaments and biological substances; T50.8X5A Adverse effect of diagnostic agents, initial encounter; Y92.239 Unspecified place in hospital as the place of occurrence of the external cause; K21.9 Gastro-esophageal reflux disease without esophagitis; I25.10 Atherosclerotic heart disease of native coronary artery without angina pectoris; I73.9 Peripheral vascular disease, unspecified; E78.5 Hyperlipidemia, unspecified; F41.8 Other specified anxiety disorders; I34.0 Nonrheumatic mitral (valve) insufficiency; Z86.718 Personal history of other venous thrombosis and embolism; Z79.01 Long term (current) use of anticoagulants; Z79.1 Long term (current) use of non-steroidal anti-inflammatories (NSAID); Z79.51 Long term (current) use of inhaled steroids; Z79.52 Long term (current) use of systemic steroids; Z79.899 Other long term (current) drug therapy; Z88.1 Allergy status to other antibiotic agents; Z88.8 Allergy status to other drugs, medicaments and biological substances; Z82.5 Family history of asthma and other chronic lower respiratory diseases; Z82.49 Family history of ischemic heart disease and other diseases of the circulatory system
CPT/HCPCS: 36415; 36600; 71275; 76775; 80053; 82570; 82803; 83605; 83735; 84100; 84300; 84484; 84540; 85025; 85027; 85610; 85730; 86140; 94640; 94660; 99285; A9270-GY; G8978-GP-CI; G8979-GP-CI; G8980-GP-CI; J2060; J2920; J2930; J3475; Q9967

== ENCOUNTER 2018-09-25 17:50 | Inpatient (IN) | payer MEDICARE, MEDICAID ==
[2018-09-25] MEDS ORDERED: Magnesium Sulfate 2 GM IV* 2 GM/50 ML BAG IVPB ONE (18:07)
[2018-09-25] MEDS ORDERED: methylPREDNISolone 125 MG* 2 ML VIAL IV ONE (18:07)
[2018-09-25] MEDS ORDERED: Albuterol 0.5% CONC NEB.SOL* 5 MG/ML 20 ml BOT INH ONE (18:07)
[2018-09-25] MEDS ORDERED: Albuterol 2.5 MG/3 ML NEB.SOL* (0.083%) INH ONE ×2 (18:21→18:23)
--- NOTE | 2018-09-25 18:37 | ED ---
Shortness of Breath - HPI Summary HPI Summary: A 62 y/o female brought in by ambulance presents to the ED c/o SOB. In the ED room, the patient has a pulse of 98, O2 saturation of 96%, and blood pressure of 130/72. As per triage, "BIB EMS from home due to SOB throughout the day, worse for past two hrs. Pt with hx of asthma and COPD reports she was organizing home earlier today when SOB started". According to the patient, she has been SOB intermittently all day, however it has been a lot worse tonight. She stated that yesterday it was "so so". Patient also has a non-productive cough, but denies any fevers, abdominal pain, headache, urinary symptoms, chills , appetite changes. PMHx of COPD. Suman is a smoker. Patient has inhalers and nebulizers at home. Patient too 3-4 nebulizer treatments today. - History of Current Complaint Chief Complaint: EDShortnessOfBreath Time Seen by Provider: 09/25/18 18:00 Hx Obtained From: Patient Onset/Duration: Sudden Onset, Lasting Hours, Still Present, Worse Since Timing: Constant Current Severity: None Dyspnea At: Rest Alleviating Factors: Nothing Associated Signs & Symptoms: Cough (Nonproductive) - Allergy/Home Medications Allergies/Adverse Reactions: Allergies Allergy/AdvReac Type Severity Reaction Status Date / Time bupropion [From Wellbutrin] Allergy Agitation Verified 09/19/18 05:59 Cephalosporins Allergy Agitation Verified 09/19/18 05:59 chlorproethazine Allergy Agitation Verified 09/19/18 05:59 erythromycin base Allergy Diarrhea Verified 09/19/18 05:59 Penicillins Allergy Hives Verified 09/19/18 05:59 tobramycin Allergy Diarrhea Verified 09/19/18 05:59 PMH/Surg Hx/FS Hx/Imm Hx Endocrine/Hematology History: Reports: Hx Anticoagulant Therapy, Hx Anemia, Other Endocrine/Hematological Disorders - L leg DVT Denies: Hx Diabetes, Hx Systemic Lupus Erythematosus, Hx Thyroid Disease Cardiovascular History: Reports: Hx Angina, Hx Coronary Artery Disease, Hx Deep Vein Thrombosis, Hx Hypercholesterolemia, Hx Hypertension, Hx Peripheral Vascular Disease, Other Cardiovascular Problems/Disorders - PERIPHERAL ARTERY DISEASE; CAD; DVT Denies: Hx Congestive Heart Failure, Hx Pacemaker/ICD Respiratory History: Reports: Hx Asthma, Hx Chronic Bronchitis, Hx Chronic Obstructive Pulmonary Disease (COPD) - 2L at home, Hx Pneumonia, Hx Seasonal Allergies, Other Respiratory Problems/Disorders - PNA Denies: Hx Cystic Fibrosis, Hx Lung Cancer, Hx Pleural Effusion, Hx Pulmonary Edema, Hx Pulmonary Embolism, Hx Sleep Apnea GI History: Reports: Hx Gall Bladder Disease - removed, Hx Gastroesophageal Reflux Disease, Hx Irritable Bowel, Other GI Disorders - hernia repair X 2 Denies: Hx Cirrhosis, Hx Crohn's Disease, Hx Diverticulosis History: Denies: Hx Dialysis, Hx Renal Disease Musculoskeletal History: Denies: Hx Arthritis, Hx Rheumatoid Arthritis, Hx Osteoporosis Sensory History: Reports: Hx Contacts or Glasses Denies: Hx Glaucoma, Hx Deafness, Hx Hearing Aid, Hx Hearing Problem Opthamlomology History: Reports: Hx Contacts or Glasses Denies: Hx Glaucoma Neurological History: Denies: Hx Headaches, Hx Seizures, Hx Transient Ischemic Attacks (TIA) Psychiatric History: Reports: Hx Anxiety, Hx Depression, Hx Inpatient Treatment , Hx Community Mental Health Tx, Hx Schizophrenia, Hx Bipolar Disorder, Hx Suicide Attempt Denies: Hx Eating Disorder, Hx Panic Disorder, Hx of Violent Episodes Against Others - Cancer History Hx Chemotherapy: No - Surgical History Surgery Procedure, Year, and Place: bilat thumb repairs, hernia repairs X 2, cholecystectomy, appendectomy Hx Anesthesia Reactions: No - Immunization History Date of Tetanus Vaccine: UTD Date of Influenza Vaccine: UTD Infectious Disease History: Yes Infectious Disease History: Denies: Hx Clostridium Difficile, Hx Hepatitis, Hx Human Immunodeficiency Virus (HIV), Hx of Known/Suspected MRSA, Hx Shingles, Hx Tuberculosis, Traveled Outside the [place] in Last 30 Days - Family History Known Family History: Positive: Cardiac Disease - [place], Other - schizophrenia, anxiety Negative: Hypertension, Diabetes Family History: Negative HTN/DM per EMR - Social History Alcohol Use: None Hx Substance Use: No Substance Use Type: Reports: None Hx Tobacco Use: Yes Smoking Status (MU): Current Every Day Smoker Type: Cigarettes Amount Used/How Often: half a pack a day Have You Smoked in the Last Year: Yes Review of Systems Negative: Fever, Chills Positive: Shortness Of Breath, Cough Negative: Abdominal Pain Positive: no symptoms reported Negative: Headache All Other Systems Reviewed And Are Negative: Yes Physical Exam - Summary Physical Exam Summary: Appearance: Well-appearing, Well-nourished, lying in bed comfortably. Appears somewhat cushingoid Skin: Warm, dry, no obvious rash Eyes: sclera anicteric, no conjunctival pallor ENT: mucous membranes moist, pharynx appears normal Neck: Supple, nontender Respiratory: Mild to moderate distress and able to talk in short phrases. Diffuse expiratory wheezes and intermittent aeration. Cardiovascular: Normal S1, S2. No murmurs. Normal distal pulses in tibial and radial bilaterally. Abdomen: Soft, nontender, normal active bowel sounds present Musculoskeletal: Normal, Strength/ROM Intact Neurological: A&Ox3, awake and alert, mentation is normal, speech is fluent and appropriate Psychiatric: affect is normal, does not appear anxious or depressed Triage Information Reviewed: Yes Vital Signs On Initial Exam: Initial Vitals Temp Pulse Resp BP Pulse Ox 97.7 F 106 16 130/72 98 09/25/18 17:55 09/25/18 17:55 09/25/18 17:55 09/25/18 17:55 09/25/18 17:55 Vital Signs Reviewed: Yes Diagnostics - Vital Signs Vital Signs Temp Pulse Resp BP Pulse Ox 09/25/18 18:00 93 37 99 09/25/18 17:57 104 25 130/72 100 09/25/18 17:55 97.7 F 100 16 130/72 100 - Laboratory Result Diagrams: 09/27/18 06:52 09/27/18 06:52 Lab Statement: Any lab studies that have been ordered have been reviewed, and results considered in the medical decision making process. - Radiology CXR Radiology Interpretation Completed By: ED Physician Summary of Radiographic Findings: NO ACUTE DISEASE. PENDING OFFICIAL REPORT. - EKG 1843 Cardiac Rate: NL - 92 BPM EKG Rhythm: Sinus Rhythm - 92 BPM Summary of EKG Findings: NEGATIVE STEMI Course/Dx - Course Course Of Treatment: A 62 y/o female brought in by ambulance presents to the ED c/o SOB. According to the patient, she has been SOB intermittently all day, however it has been a lot worse tonight. She stated that yesterday it was "so so ". Patient also has a non-productive cough, but denies any fevers, abdominal pain, headache, urinary symptoms, chills, appetite changes. Physical examination findings significant for appears somewhat cushingoid, diffuse expiratory wheezes and intermittent aeration. An EKG revealed NSR of 92 BPM, negative STEMI. A CXR revealed no acute disease. Hematology and Chemistry screens were done. No significant laboratory abnormalities were found. In the ED course, the patient received Albuterol, Ventolin, Ativan, Magnesium Sulfate, and Solu-Medrol. Patient care was discussed with hospitalist, Dr. Gauri Waldrop , who accepts patient for admission. Patient will be admitted with a diagnosis of COPD exacerbation. Patient is agreeable with this plan. - Diagnoses Provider Diagnoses: COPD exacerbation - Physician Notifications Discussed Care of Patient With: Gauri Waldrop Time Discussed With Above Provider: 20:36 Instructed by Provider To: Other - ACCEPTS PATIENT FOR ADMISSION. Discharge - Sign-Out/Discharge Documenting (check all that apply): Patient Departure - ADMIT, Sign-Out Patient - ALIVIA Signing out patient TO: Gauri Waldrop Receiving patient FROM: Elliott Pittman - Discharge Plan Condition: Stable Disposition: ADMITTED TO [facility] - Billing Disposition and Condition Condition: STABLE Disposition: Admitted to [facility] - Attestation Statements Document Initiated by Genesis: Yes Documenting Scribe: Bob Alan Provider For Whom Genesis is Documenting (Include Credential): Elliott Pittman MD Scribe Attestation: Bob Laboy, scribed for Elliott Pittman MD on 09/30/18 at 1022. Scribe Documentation Reviewed: Yes Provider Attestation: The documentation as recorded by the Bob kiran accurately reflects the service I personally performed and the decisions made by me, Elliott Pittman MD Status of Scribe Document: Viewed
[2018-09-25 18:38] LABS: ABS Basophils 0.1 10^3/ul (0-0.2); ABS Eosinophils 0.5 10^3/ul (0-0.6); ABS Lymphocytes 1.5 10^3/ul (1.0-4.8); ABS Monocytes 0.7 10^3/ul (0-0.8); ABS Neutrophils 8.8 10^3/ul (1.5-7.7); ABS Nucleated RBC 0 10^3/ul; Hematocrit 39 % (35-47); Hemoglobin 12.5 g/dl (12.0-16.0); Lymphocyte % 13.3 %; Mean Corpuscular HGB Conc 32 g/dl (31-36); Mean Corpuscular Hemoglobin 28 pg (27-31); Mean Corpuscular Volume 87 fL (80-97); Mean Platelet Volume 7.5 fL (7.4-10.4); Nucleated Red Blood Cells % 0; Platelet Count 143 10^3/ul (150-450); Red Blood Count 4.49 10^6/ul (4.00-5.40); Red Cell Distribution Width 15 % (10.5-15); White Blood Count 11.7 10^3/ul (3.5-10.8)
[2018-09-25 18:55] LABS: Albumin 3.5 g/dL (3.2-5.2); Albumin/Globulin Ratio 1.8 (1-3); BUN/Creatinine Ratio 21.6 (8-20); Calcium 9.2 mg/dL (8.6-10.3); EGFR Non-African American 65.5 (>60); Potassium 4.1 mmol/L (3.5-5.0); Total Bilirubin 0.5 mg/dL (0.2-1.0); Total Protein 5.5 g/dL (6.4-8.9)
[2018-09-25] MEDS ORDERED: LORazepam INJ* 2 MG/ML 1 ML VIAL IV PUSH ONE (19:23)
[2018-09-25] MEDS ORDERED: Albuterol/Ipratropium NEB.SOL* Albuterol 2.5 MG/Ipratropium 0.5 MG 3 ML ONE (20:46)
[2018-09-25] MEDS ORDERED: Albuterol/Ipratropium NEB.SOL* Albuterol 2.5 MG/Ipratropium 0.5 MG 3 ML INH ONE (20:50)
[2018-09-25] MEDS ORDERED: Morphine VIAL* 4 MG/ML VIAL (1 ml vial) IV PRN (21:03)
[2018-09-25] MEDS ORDERED: Albuterol/Ipratropium NEB.SOL* Albuterol 2.5 MG/Ipratropium 0.5 MG 3 ML INH PRN (21:06)
[2018-09-25] MEDS ORDERED: Acetaminophen TAB* 325 MG PO PRN (21:06)
[2018-09-25] MEDS ORDERED: hydrOXYzine HCL TAB* 50 MG PO PRN (21:06)
[2018-09-25] MEDS ORDERED: LORazepam TAB(*) 0.5 MG PO PRN (21:10)
[2018-09-25 21:50] LABS: Lithium 0.61 mmol/L (0.6-1.2)
[2018-09-25] MEDS: Albuterol 2.5 MG/3 ML NEB.SOL* (0.083%) INH SCH (22:56)
--- NOTE | 2018-09-25 23:27 | HP ---
CC: Dr. Schrader* HISTORY AND PHYSICAL: DATE OF ADMISSION: 09/25/18 PRIMARY CARE PROVIDER: Dr. Schrader. CHIEF COMPLAINT: Shortness of breath. HISTORY OF PRESENT ILLNESS: Ms. Camejo is a 62-year-old female who was just hospitalized from 09/19/18 through 09/22/18 where she was treated for a COPD exacerbation. At the time of that discharge, she was discharged on doxycycline to continue for another 2 days, which is now completed. The patient was also instructed to continue on nebulizer treatments at home. She states she was using these every 4 hours. She was not discharged on steroids. The patient now returned to the emergency room stating that over the last 3 days at home, her breathing has worsened. She states that she felt decent when she left the hospital 3 days ago, but did not feel quite back to her baseline. She states that she has had slight increase in cough, but no sputum production, no fevers, no chills. She does think that anxiety is playing a role into her worsened shortness of breath. The patient states that she had previously been on Xanax, but told not to take that, though I do not see Xanax on medication list nor a mention of that medication in the discharge summary. I questioned if she meant hydroxyzine or Atarax. On presentation to the emergency room, the patient was noted to be quite wheezy and dyspneic. She was given 3 nebulizer treatments and started on Vapotherm. The patient had significant improvement in her symptoms and is feeling better now compared to admission. She also received Ativan in the emergency room. PAST MEDICAL HISTORY: 1. COPD. 2. Chronic hypoxic respiratory failure, on 2 L of O2 continuously. 3. Hypertension. 4. Peripheral arterial disease. 5. Hyperlipidemia. 6. Coronary artery disease. 7. Schizophrenia. 8. Bipolar disorder. 9. Anxiety/depression. 10. History of left lower extremity DVT. PAST SURGICAL HISTORY: 1. Appendectomy. 2. Hernia repair x2. 3. Right lower extremity stent. 4. Cholecystectomy. MEDICATIONS: 1. Tylenol 650 mg p.o. q.4 hours p.r.n. pain. 2. Albuterol 1 neb inhaled q.2 hours p.r.n. shortness of breath. 3. ProAir RespiClick 2 puffs inhaled q.4 hours p.r.n. shortness of breath. 4. DuoNeb 1 neb inhaled q.4 hours. 5. Amlodipine 10 mg p.o. daily. 6. Lipitor 10 mg p.o. daily. 7. BuSpar 10 mg p.o. b.i.d. 8. Nexium 40 mg p.o. daily. 9. Breo Ellipta 200-25 one puff inhaled daily. 10. Gabapentin 400 mg p.o. b.i.d. 11. Atarax 50 mg p.o. 4 times daily p.r.n. anxiety. 12. Imdur 30 mg p.o. daily. 13. [address] [place] carbonate 300 mg p.o. b.i.d. 14. Melatonin 3 mg p.o. at bedtime. 15. Metoprolol tartrate 25 mg p.o. b.i.d. 16. Remeron 15 mg p.o. at bedtime. 17. Singulair 10 mg p.o. daily. 18. Nicotine inhaler 10 mg inhaled q.2 hours p.r.n. craving. 19. Nicotine patch 21 mg per 24 hour 1 patch topically daily. 20. Zyprexa 10 mg p.o. daily. 21. Incruse Ellipta 62.5 mcg inhaled daily. 22. Coumadin 5 mg p.o. daily. ALLERGIES: BUPROPION, CEPHALOSPORINS, CHLORPROETHAZINE, ERYTHROMYCIN, PENICILLIN, and TOBRAMYCIN. FAMILY HISTORY: Mom in her 70s with COPD. Dad in his 70s of an [place]. SOCIAL HISTORY: The patient continues to smoke one-half pack per day. She smoked for 40 years. She drinks alcohol rarely. She is disabled. She is single. She has 1 child; she no longer lives with him. Her healthcare proxy is her friend, Crystal Ring. REVIEW OF SYSTEMS: A complete 11-system review of systems is obtained. Pertinent positives and negatives are as per HPI, otherwise negative. PHYSICAL EXAMINATION GENERAL: The patient is a well-developed, middle-aged female seen sitting in the stretcher, in no acute distress. VITAL SIGNS: Blood pressure 134/58, pulse 91, respirations 33, temp 97.7, O2 sat 95% on 2 L. HEENT: Pupils are equal and round. Extraocular muscles are intact. Oropharynx is clear. Oral mucosa is moist. There is no submandibular, cervical , or supraclavicular adenopathy. Thyroid is not enlarged. No thyroid nodule is noted. PULMONARY: Breath sounds are clear, but diminished at the bases bilaterally. CARDIAC: Normal S1 and S2. Regular rate and rhythm. I do not appreciate any murmurs. There is enlargement of the left lower extremity compared to the right , though this is nonpitting edema. The patient states this was chronic since the time of diagnosis of left lower extremity DVT. ABDOMEN: Bowel sounds are present. Abdomen is soft, nontender, and nondistended. MUSCULOSKELETAL: There is no cyanosis or clubbing of the digits. There is full active range of motion of all 4 extremities. NEURO: Cranial nerves II through XII are grossly intact. Sensation is intact to light touch throughout. Strength is 5/5 and symmetric in both the upper and lower extremities. PSYCHIATRIC: The patient is alert. She is oriented x3. Affect appears appropriate. SKIN: Warm and dry. There are no rashes. DIAGNOSTIC STUDIES/LAB DATA: WBC 11.7, hemoglobin 12.5, hematocrit 39, platelets 143. INR 2.02. Sodium 139, potassium 4.1, chloride 105, CO2 of 33, BUN 19, creatinine 0.88, glucose 129, calcium 9.2. Bilirubin 0.5, AST 11, ALT 17, alk phos 81. Troponin 0.01. Albumin 3.5. Chest x-ray to my interpretation reveals hyperinflation, but clear lungs otherwise and looks generally unchanged from 09/15/18. EKG reveals normal sinus rhythm with ST depressions in lead V5, though there is quite a bit of baseline wander in that lead. ASSESSMENT AND PLAN: Ms. Camejo is a 62-year-old female who has been to the emergency room or admitted to [facility] 5 times in the last 5 weeks and is here again today with complaints of progressive shortness of breath just following hospitalization from 09/19/18 through 09/22/18 and will be admitted for chronic obstructive pulmonary disease exacerbation. 1. Chronic obstructive pulmonary disease exacerbation. At this point, the patient's lung sounds are clear. I did not appreciate any wheezing on exam; however, reportedly the patient was quite wheezy on admission. The patient has received several nebulizer treatments at this point. I am suspicious that the patient may be having flares of her shortness of breath related to anxiety. I am going to increase her BuSpar to 10 mg 3 times daily. This could potentially go up in dose. She may ultimately benefit from benzodiazepine or morphine for air hunger; however, I am concerned with her ability to manage this at home alone. For now, the patient will be admitted with standing albuterol treatments every 4 hours and p.r.n. DuoNeb treatments every 4 hours. She will be started on prednisone 40 mg daily beginning tomorrow. She received Solu- Medrol in the emergency room. I am going to hold off on the antibiotic therapy if there is no clear evidence of infection at this point despite there being a slightly elevated white blood cell count. The patient may be able to be discharged home tomorrow if her breathing remains stable. 2. Chronic hypoxic respiratory failure. The patient will continue on her 2 L of oxygen continuously. 3. Hypertension. The patient's blood pressure is under decent control. She will be maintained on her usual home medication regimen. 4. Peripheral arterial disease/coronary artery disease. The patient will continue on her Lipitor and Imdur. I do find it odd that the patient is not on aspirin at baseline. She will also continue on her metoprolol. We have encouraged smoking cessation again. 5. Hyperlipidemia. Continue Lipitor. 6. Schizophrenia/bipolar/anxiety and depression. The patient will continue on BuSpar at the increased dose as above, hydroxyzine p.r.n., lithium with a level pending, Remeron and olanzapine. 7. History of left lower extremity DVT. The patient is unable to tell me when this was diagnosed. According to hospital records, however, there was evidence of DVT in February 2016. It does appear she has had some workup for hypercoagulable state dating back to 2010, so perhaps this is a second episode and she will need lifelong Coumadin. Her INR is therapeutic today. She will continue on Coumadin 5 mg daily. 8. DVT prophylaxis. According to the Adult Thrombosis Prophylaxis Risk Factor Assessment Guide, the patient has a total risk factor score of 6 making her high risk. She will continue Coumadin 5 mg daily as above. 9. Code status is full. TIME SPENT: Sixty five minutes was spent admitting this patient. [id number]/[facility] #: [id number] ANNITA
[2018-09-25] MEDS: busPIRone TAB* 10 MG PO SCH (23:54)
[2018-09-25] MEDS: Melatonin 3 MG TAB PO SCH (23:55)
[2018-09-25] MEDS: Mirtazapine TAB* 15 MG PO SCH (23:55)
[2018-09-26] MEDS: Albuterol 2.5 MG/3 ML NEB.SOL* (0.083%) INH SCH ×7 (03:15→22:46)
[2018-09-26] MEDS ORDERED: NON FORMULARY MED* (L. Acidophilus/L.Bulgaricus [Floranex Tablet] 2 CHW) PO SCH (09:00)
[2018-09-26] MEDS ORDERED: Fluticasone/Vilanterol MDI(NF) 200/25 MDI INH SCH (09:00)
[2018-09-26] MEDS ORDERED: Umeclidinium 62.5 MDI(NF) MDI INH SCH (09:00)
[2018-09-26] MEDS ORDERED: Mouth Piece, Nicotine* 1 EACH CARTRIDGE ONE (09:54)
[2018-09-26] MEDS: Nicotine Inhaler* 10 MG AMP INH PRN ×3 (09:55→16:49)
[2018-09-26] MEDS: Gabapentin CAP(*) 400 MG PO SCH ×2 (09:56→19:31)
[2018-09-26] MEDS: Isosorbide Mononitrate ER TAB* 30 MG PO SCH (09:56)
[2018-09-26] MEDS: Lithium Carbonate TAB* 300 MG PO SCH ×2 (09:57→19:32)
[2018-09-26] MEDS: OLANzapine TAB* 10 MG PO SCH (09:57)
[2018-09-26] MEDS: amLODIPine TAB* 5 MG PO SCH (09:57)
[2018-09-26] MEDS: Metoprolol Tartrate TAB* 25 MG PO SCH ×2 (09:57→19:30)
[2018-09-26] MEDS: predniSONE TAB* 20 MG PO SCH (09:57)
[2018-09-26] MEDS: busPIRone TAB* 10 MG PO SCH ×3 (09:57→19:31)
[2018-09-26] MEDS: Nicotine PATCH 21 MG/24 HR* PATCH TRANSDERM SCH (09:58)
[2018-09-26] MEDS: Pantoprazole TAB * 40 MG TAB PO SCH (09:58)
[2018-09-26] MEDS: Montelukast Sodium TAB* 10 MG PO SCH (09:58)
[2018-09-26] MEDS ORDERED: Spiriva Inhaler DEVICE* 1 EACH DEVICE SCH (10:00)
[2018-09-26] MEDS ORDERED: Warfarin TAB(*) 5 MG PO SCH (17:00)
[2018-09-26] MEDS ORDERED: Atorvastatin* 10 MG TAB PO SCH (17:00)
[2018-09-26] MEDS: Mometasone/Formoter 200/5 MDI INH SCH (19:17)
[2018-09-26] MEDS: Melatonin 3 MG TAB PO SCH (19:33)
[2018-09-26] MEDS: Mirtazapine TAB* 15 MG PO SCH (19:33)
--- NOTE | 2018-09-26 19:50 | PN ---
Subjective Date of Service: 09/26/18 Interval History: Doing well, less tacchypneic. no fever or chills. On her current regimen doing well,. Past Medical History: Unchanged from Admission Objective Active Medications: Acetaminophen (Tylenol Tab*) 650 mg PO Q4H PRN PRN Reason: FEVER/PAIN Albuterol (Ventolin 2.5 Mg/3 Ml Neb.Tania*) 2.5 mg INH [id number] AWAKE [facility] Last Admin: 09/26/18 19:16 Dose: 2.5 mg Albuterol/Ipratropium (Duoneb (Albuterol 2.5 Mg/Ipratropium 0.5 Mg)) 1 neb INH Q4H PRN PRN Reason: SOB/WHEEZING Last Admin: 09/25/18 22:56 Dose: 1 neb Amlodipine Besylate (Norvasc Tab*) 10 mg PO DAILY [facility] Last Admin: 09/26/18 09:57 Dose: 10 mg Atorvastatin Calcium (Lipitor*) 10 mg PO 1700 [facility] Last Admin: 09/26/18 16:27 Dose: 10 mg Buspirone HCl (Buspar Tab*) 10 mg PO TID [facility] Last Admin: 09/26/18 19:31 Dose: 10 mg Device (Tiotropium Inhaler Device*) 1 each .SEE ORDER .USE w/ SPIRIVA CAPS [facility] Gabapentin (Neurontin Cap(*)) 400 mg PO BID [facility] Last Admin: 09/26/18 19:31 Dose: 400 mg Hydroxyzine HCl (Atarax Tab*) 50 mg PO QID PRN PRN Reason: ANXIETY Isosorbide Mononitrate (Imdur Er Tab*) 30 mg PO DAILY [facility] Last Admin: 09/26/18 09:56 Dose: 30 mg [place] Carbonate ([place] Carbonate Tab*) 300 mg PO BID [facility] Last Admin: 09/26/18 19:32 Dose: 300 mg Lorazepam (Ativan Tab(*)) 0.5 mg PO Q6H PRN PRN Reason: ANXIETY Melatonin (Melatonin) 3 mg PO BEDTIME [facility]; Protocol Last Admin: 09/26/18 19:33 Dose: 3 mg Metoprolol Tartrate (Lopressor Tab*) 25 mg PO BID [facility] Last Admin: 09/26/18 19:30 Dose: 25 mg Mirtazapine (Remeron Tab*) 15 mg PO BEDTIME [facility] Last Admin: 09/26/18 19:33 Dose: 15 mg Mometasone Furoate/Formoterol Fumar (Dulera 200/5 Mdi*) 2 puff INH BID [facility] Last Admin: 09/26/18 19:17 Dose: 2 puff Montelukast Sodium (Singulair Tab*) 10 mg PO DAILY [facility] Last Admin: 09/26/18 09:58 Dose: 10 mg Morphine Sulfate (Morphine Vial*) 2 mg IV Q4H PRN PRN Reason: air hunger Last Admin: 09/26/18 16:48 Dose: 2 mg Nicotine (Nicotine Inhaler*) 10 mg INH Q2H PRN PRN Reason: CRAVING Last Admin: 09/26/18 16:49 Dose: 10 mg Nicotine (Nicotine Patch 21 Mg/24 Hr*) 1 patch TRANSDERM DAILY@0800 [facility] Last Admin: 09/26/18 09:58 Dose: 1 patch Olanzapine (Zyprexa Tab*) 10 mg PO DAILY [facility] Last Admin: 09/26/18 09:57 Dose: 10 mg Pantoprazole Sodium (Protonix Tab (Nf)) 40 mg PO DAILY [facility]; Protocol Last Admin: 09/26/18 09:58 Dose: 40 mg Prednisone (Deltasone Tab*) 40 mg PO DAILY [facility] Last Admin: 09/26/18 09:57 Dose: 40 mg Tiotropium [place] (Spiriva Cap.Inh*) 1 cap INH DAILY [facility] Warfarin Sodium (Coumadin Tab(*)) 5 mg PO DAILY@1700 [facility]; Protocol Last Admin: 09/26/18 16:26 Dose: 5 mg Vital Signs - 8 hr 09/26/18 09/26/18 09/26/18 12:07 15:29 15:30 Temperature 98.2 F 98.2 F Pulse Rate 74 76 Respiratory 23 18 Rate Blood Pressure 138/62 (mmHg) O2 Sat by Pulse 100 99 Oximetry 09/26/18 09/26/18 09/26/18 16:48 16:52 17:53 Temperature Pulse Rate 69 Respiratory 25 20 22 Rate Blood Pressure (mmHg) O2 Sat by Pulse 99 Oximetry 09/26/18 09/26/18 19:19 19:31 Temperature Pulse Rate 82 Respiratory 16 20 Rate Blood Pressure (mmHg) O2 Sat by Pulse 99 Oximetry Oxygen Devices in Use Now: Nasal Cannula Appearance: Awake, alert. nasal canula in place Eyes: No Scleral Icterus Ears/Nose/Mouth/Throat: NL Teeth, Lips, Gums, Mucous Membranes Moist Respiratory: Symmetrical Chest Expansion and Respiratory Effort, - - fine expiratory wheezing Cardiovascular: NL Sounds; No Murmurs; No JVD Skin: No Rash or Ulcers Neurological: Alert and Oriented x 3 Result Diagrams: 09/25/18 17:33 09/25/18 17:33 Microbiology and Other Data: Microbiology 09/25/18 17:33 Aerobic Blood Culture - Preliminary Blood Venous No Growth Day 1 Anaerobic Blood Culture - Preliminary No Growth Day 1 09/25/18 17:38 Aerobic Blood Culture - Preliminary Blood Venous No Growth Day 1 Anaerobic Blood Culture - Preliminary No Growth Day 1 Assess/Plan/Problems-Billing Assessment: 62 y/o female admitted for COPD exacerbation and anxiety - Patient Problems (1) COPD exacerbation Current Visit: No Status: Acute Priority: Medium Code(s): J44.1 - CHRONIC OBSTRUCTIVE PULMONARY DISEASE W (ACUTE) EXACERBATION SNOMED Code(s): 568958640 Comment: - Doing well. on prednsione will continue -Pt advised to stop smoking (2) Adjustment disorder with mixed anxiety and depressed mood Current Visit: No Status: Acute Comment: Continue home psychotropic meds. PRN alprazolam ordered. [place] level WNL. (3) DVT prophylaxis Current Visit: No Status: Acute Priority: Medium Code(s): [id number] - SNOMED Code(s): 794983860 Comment: -Continue Coumadin
[2018-09-26] MEDS ORDERED: Nicotine Patch Removal NOTE PATCH OFF SCH (23:00)
[2018-09-27] MEDS: Nicotine Inhaler* 10 MG AMP INH PRN ×3 (02:38→12:03)
[2018-09-27] MEDS: Albuterol 2.5 MG/3 ML NEB.SOL* (0.083%) INH SCH ×3 (03:27→10:53)
[2018-09-27] MEDS: Mometasone/Formoter 200/5 MDI INH SCH ×2 (06:06→07:17)
[2018-09-27 07:19] LABS: ABS Basophils 0 10^3/ul (0-0.2); ABS Eosinophils 0.2 10^3/ul (0-0.6); ABS Lymphocytes 1.2 10^3/ul (1.0-4.8); ABS Monocytes 0.5 10^3/ul (0-0.8); ABS Neutrophils 4.5 10^3/ul (1.5-7.7); ABS Nucleated RBC 0 10^3/ul; Eosinophil % 2.6 %; Hematocrit 33 % (35-47); Hemoglobin 10.5 g/dl (12.0-16.0); Lymphocyte % 19.4 %; Mean Corpuscular HGB Conc 32 g/dl (31-36); Mean Corpuscular Hemoglobin 28 pg (27-31); Mean Corpuscular Volume 86 fL (80-97); Mean Platelet Volume 7.8 fL (7.4-10.4); Nucleated Red Blood Cells % 0; Platelet Count 112 10^3/ul (150-450); Red Cell Distribution Width 16 % (10.5-15); White Blood Count 6.4 10^3/ul (3.5-10.8)
[2018-09-27 07:28] LABS: INR 1.7 (0.77-1.02)
[2018-09-27 07:32] LABS: BUN/Creatinine Ratio 27.6 (8-20); Calcium 9.3 mg/dL (8.6-10.3); EGFR Non-African American 57.9 (>60); Magnesium 1.9 mg/dL (1.9-2.7); Phosphorus 2.5 mg/dL (2.5-5.0); Potassium 4.5 mmol/L (3.5-5.0)
[2018-09-27] MEDS: Nicotine PATCH 21 MG/24 HR* PATCH TRANSDERM SCH (08:14)
[2018-09-27] MEDS: predniSONE TAB* 20 MG PO SCH (08:15)
[2018-09-27] MEDS: OLANzapine TAB* 10 MG PO SCH (08:16)
[2018-09-27] MEDS: busPIRone TAB* 10 MG PO SCH ×2 (08:17→13:16)
[2018-09-27] MEDS: Pantoprazole TAB * 40 MG TAB PO SCH (08:17)
[2018-09-27] MEDS: Montelukast Sodium TAB* 10 MG PO SCH (08:17)
[2018-09-27] MEDS: Gabapentin CAP(*) 400 MG PO SCH (08:18)
[2018-09-27] MEDS: Lithium Carbonate TAB* 300 MG PO SCH (08:18)
[2018-09-27] MEDS: Isosorbide Mononitrate ER TAB* 30 MG PO SCH (08:19)
[2018-09-27] MEDS: amLODIPine TAB* 5 MG PO SCH (08:34)
[2018-09-27] MEDS: Metoprolol Tartrate TAB* 25 MG PO SCH (08:50)
[2018-09-27] MEDS ORDERED: Tiotropium CAP.INH* CAP.INH/18 MCG (USE ORDER SET !) INH SCH (09:00)
--- NOTE | 2018-09-27 12:06 | PN ---
Subjective Date of Service: 09/27/18 Interval History: patient seen today. had difficulty sleeping last night. She is at baseline with the Oxygen at 2 liters. no chest pain. No nausea or vomit. Past Medical History: Unchanged from Admission Objective Active Medications: Acetaminophen (Tylenol Tab*) 650 mg PO Q4H PRN PRN Reason: FEVER/PAIN Albuterol (Ventolin 2.5 Mg/3 Ml Neb.Tania*) 2.5 mg INH [id number] AWAKE [facility] [place] Last Admin: 09/27/18 10:53 Dose: 2.5 mg Albuterol/Ipratropium (Duoneb (Albuterol 2.5 Mg/Ipratropium 0.5 Mg)) 1 neb INH Q4H PRN PRN Reason: SOB/WHEEZING Last Admin: 09/25/18 22:56 Dose: 1 neb Amlodipine Besylate (Norvasc Tab*) 10 mg PO DAILY [facility] [place] Last Admin: 09/27/18 08:34 Dose: 10 mg Atorvastatin Calcium (Lipitor*) 10 mg PO 1700 [facility] [place] Last Admin: 09/26/18 16:27 Dose: 10 mg Buspirone HCl (Buspar Tab*) 10 mg PO TID [facility] [place] Last Admin: 09/27/18 08:17 Dose: 10 mg Device (Tiotropium Inhaler Device*) 1 each .SEE ORDER .USE w/ SPIRIVA CAPS [facility] [place] Gabapentin (Neurontin Cap(*)) 400 mg PO BID [facility] [place] Last Admin: 09/27/18 08:18 Dose: 400 mg Hydroxyzine HCl (Atarax Tab*) 50 mg PO QID PRN PRN Reason: ANXIETY Last Admin: 09/26/18 23:34 Dose: 50 mg Isosorbide Mononitrate (Imdur Er Tab*) 30 mg PO DAILY [facility] [place] Last Admin: 09/27/18 08:19 Dose: 30 mg [place] Carbonate ([place]imar Carbonate Tab*) 300 mg PO BID [facility] [place] Last Admin: 09/27/18 08:18 Dose: 300 mg Lorazepam (Ativan Tab(*)) 0.5 mg PO Q6H PRN PRN Reason: ANXIETY Last Admin: 09/26/18 21:57 Dose: 0.5 mg Melatonin (Melatonin) 3 mg PO BEDTIME [facility] [place]; Protocol Last Admin: 09/26/18 19:33 Dose: 3 mg Metoprolol Tartrate (Lopressor Tab*) 25 mg PO BID [facility] [place] Last Admin: 09/27/18 08:50 Dose: Not Given Mirtazapine (Remeron Tab*) 15 mg PO BEDTIME [facility] [place] Last Admin: 09/26/18 19:33 Dose: 15 mg Mometasone Furoate/Formoterol Fumar (Dulera 200/5 Mdi*) 2 puff INH BID [facility] [place] Last Admin: 09/27/18 07:17 Dose: Not Given Montelukast Sodium (Singulair Tab*) 10 mg PO DAILY [facility] [place] Last Admin: 09/27/18 08:17 Dose: 10 mg Morphine Sulfate (Morphine Vial*) 2 mg IV Q4H PRN PRN Reason: air hunger Last Admin: 09/26/18 16:48 Dose: 2 mg Nicotine (Nicotine Inhaler*) 10 mg INH Q2H PRN PRN Reason: CRAVING Last Admin: 09/27/18 02:38 Dose: 10 mg Nicotine (Nicotine Patch 21 Mg/24 Hr*) 1 patch TRANSDERM DAILY@0800 [facility] [place] Last Admin: 09/27/18 08:14 Dose: 1 patch Olanzapine (Zyprexa Tab*) 10 mg PO DAILY [facility] [place] Last Admin: 09/27/18 08:16 Dose: 10 mg Pantoprazole Sodium (Protonix Tab (Nf)) 40 mg PO DAILY [facility] [place]; Protocol Last Admin: 09/27/18 08:17 Dose: 40 mg Pharmacy Profile Note (Nicotine Patch Removal Note*) 1 note PATCH OFF 2100 [facility] [place] Last Admin: 09/26/18 23:00 Dose: 1 note Prednisone (Deltasone Tab*) 40 mg PO DAILY [facility] [place] Last Admin: 09/27/18 08:15 Dose: 40 mg Tiotropium Alto (Spiriva Cap.Inh*) 1 cap INH DAILY [facility] [place] Last Admin: 09/27/18 07:15 Dose: 1 cap Warfarin Sodium (Coumadin Tab(*)) 5 mg PO DAILY@1700 [facility] [place]; Protocol Last Admin: 09/26/18 16:26 Dose: 5 mg Vital Signs - 8 hr 09/27/18 09/27/18 09/27/18 06:08 07:16 07:49 Temperature 97.9 F Pulse Rate 65 55 49 Respiratory 18 18 16 Rate Blood Pressure 132/45 (mmHg) O2 Sat by Pulse 100 98 100 Oximetry 09/27/18 09/27/18 09/27/18 08:18 08:32 10:20 Temperature Pulse Rate 50 Respiratory 22 20 Rate Blood Pressure 132/46 (mmHg) O2 Sat by Pulse Oximetry 09/27/18 09/27/18 10:46 10:54 Temperature Pulse Rate 60 Respiratory 22 18 Rate Blood Pressure (mmHg) O2 Sat by Pulse 99 Oximetry Oxygen Devices in Use Now: Nasal Cannula Appearance: Awake, Alert. No distress Eyes: No Scleral Icterus, - - EOMI Ears/Nose/Mouth/Throat: NL Teeth, Lips, Gums Neck: NL Appearance and Movements; NL JVP, Trachea Midline Respiratory: Symmetrical Chest Expansion and Respiratory Effort, - - fine minimal expiratory wheezing Cardiovascular: NL Sounds; No Murmurs; No JVD, RRR Abdominal: NL Sounds; No Tenderness; No Distention Extremities: No Edema Skin: No Rash or Ulcers Neurological: Alert and Oriented x 3 Result Diagrams: 09/27/18 06:52 09/27/18 06:52 Microbiology and Other Data: Microbiology 09/25/18 17:33 Aerobic Blood Culture - Preliminary Blood Venous No Growth Day 1 Anaerobic Blood Culture - Preliminary No Growth Day 1 09/25/18 17:38 Aerobic Blood Culture - Preliminary Blood Venous No Growth Day 1 Anaerobic Blood Culture - Preliminary No Growth Day 1 Assess/Plan/Problems-Billing Assessment: 62 y/o female admitted for COPD exacerbation and anxiety - Patient Problems (1) COPD exacerbation Current Visit: No Status: Acute Priority: Medium Code(s): J44.1 - CHRONIC OBSTRUCTIVE PULMONARY DISEASE W (ACUTE) EXACERBATION SNOMED Code(s): 109735747 Comment: - Doing well. on prednsione will continue - Pt advised to stop smoking - d/c on taper prednisone, Spiriva and Dulera - O2 @ 2 Liters NC (2) Adjustment disorder with mixed anxiety and depressed mood Current Visit: No Status: Acute Comment: - Continue home psychotropic meds. PRN alprazolam ordered. Shalimar level WNL. - Buspar, Gabapentin (3) DVT prophylaxis Current Visit: No Status: Acute Priority: Medium Code(s): EQY8684 - SNOMED Code(s): 478469408 Comment: -Continue Coumadin (4) HTN (hypertension) Current Visit: No Status: Acute Code(s): I10 - ESSENTIAL (PRIMARY) HYPERTENSION SNOMED Code(s): 58632520 Comment: Controlled Continue Imdur, Lopressor, norvasc (5) CAD (coronary artery disease) Current Visit: No Status: Chronic Code(s): I25.10 - ATHSCL HEART DISEASE OF [place] CORONARY ARTERY W/O ANG PCTRS SNOMED Code(s): 69777704 Comment: - Continue Imdur, Lopressor and atorvastatin (6) Depression Current Visit: No Status: Chronic Code(s): F32.9 - MAJOR DEPRESSIVE DISORDER , SINGLE EPISODE, UNSPECIFIED SNOMED Code(s): 13661178 Comment: - Continue mirtazapine (7) GERD (gastroesophageal reflux disease) Current Visit: No Status: Chronic Code(s): K21.9 - GASTRO-ESOPHAGEAL REFLUX DISEASE WITHOUT ESOPHAGITIS SNOMED Code(s): 082380144 Comment: -Well-controlled -Continue Pantoprazole (8) HLD (hyperlipidemia) Current Visit: No Status: Chronic Code(s): E78.5 - HYPERLIPIDEMIA, UNSPECIFIED SNOMED Code(s): 78101829 Comment: Continue atorvastatin. (9) Hx of deep venous thrombosis Current Visit: No Status: Chronic Priority: Medium Code(s): Z86.718 - PERSONAL HISTORY OF OTHER VENOUS THROMBOSIS AND EMBOLISM SNOMED Code(s): 569801518 Comment: INR therapeutic; Continue warfarin (10) Schizoaffective disorder, bipolar type Current Visit: No Status: Chronic Priority: Medium Onset Date: 09/29/15 Code(s): F25.0 - SCHIZOAFFECTIVE DISORDER, BIPOLAR TYPE SNOMED Code(s): 21978660 Comment: -Continue Olanzapine -Decreased gabapentin due to reports of lethargy
--- NOTE | 2018-09-27 13:18 | DS ---
CC: Dr. Tom Schrader DISCHARGE SUMMARY: DATE OF ADMISSION: 09/25/18 DATE OF DISCHARGE: 09/27/18 PRIMARY CARE PROVIDER: Dr. Tom Schrader. FINAL DISCHARGE DIAGNOSES: 1. Chronic obstructive pulmonary disease exacerbation. 2. Generalized anxiety disorder with adjustment and mood disorder. 3. History of deep venous thrombosis, on chronic warfarin. 4. Hypertension. 5. Coronary artery disease. 6. Depression. 7. Hyperlipidemia. 8. Schizoaffective disorder. HOSPITAL COURSE: The patient presented to [facility] on 09/25/18 via the emergency room a fter she reported a subjective shortness of breath worsening with minimal activity. It should be not ed that she was recently discharged on 09/22/18, for COPD exacerbation for which she completed steroi d taper and doxycycline. The patient returned on 09/25/18, three days later with recurrent symptoms, increased anxiety. It should be noted that the patient denies tobacco abuse; however, she has a sarahi y strong tobacco smell on examination, one debate whether or not the patient was compliant with histo ry of not smoking. Nonetheless, the patient was admitted. She was placed on oral steroids, nebulize r treatment, oxygen supplementation and she was followed throughout the hospital course for the follo wing days and today she is at baseline of oxygen 2 L. She is on the prednisone 40 mg daily. Her [address] st x-ray shows no acute disease. Microbiology was negative for blood cultures and her chemistries we re fairly unremarkable. The patient was seen and deemed stable for discharge today. For the history and physical exam and assessment and plan, please refer to the progress note earlier done today. DISCHARGE MEDICATIONS: 1. She will be discharged on prednisone taper 40 mg for 3 days, 30 for 3 days, 20 for 3 days, 10 mg for 3 days, then stop. 2. Continue Tylenol as needed. 3. Albuterol nebulizers every 4 to 6 hours as needed. 4. Amlodipine 10 mg daily. 5. Lipitor 10 mg daily. 6. BuSpar 10 mg b.i.d. 7. Nexium 40 mg daily. 8. Gabapentin 400 mg b.i.d. 9. Atarax 50 mg four times daily p.r.n. 10. Imdur 30 mg daily. 11. [place] 300 b.i.d. 12. Melatonin 3 mg at bedtime. 13. Metoprolol 25 b.i.d. 14. Remeron 15 mg at bedtime. 15. Singulair 10 mg daily. 16. Nicotine inhaler. 17. Nicotine patch. 18. Zyprexa 10 mg daily. 19. Warfarin 5 mg daily. 20. Breo 1 puff daily. 21. In the house, we were using Dulera. 22. Lorazepam 0.5 mg q.6 p.r.n. for anxiety. 23. Incruse Ellipta 62.5 daily. 24. In-house, we were using Spiriva. DISCHARGE INSTRUCTIONS AND RECOMMENDATIONS: The patient is to continue the prednisone taper. She is to refrain from tobacco use. Followup PT/INR in 3 days and adjust Coumadin accordingly. Continue the prednisone taper to complete her total 12 days taper. [id number]/[facility] #: [id number]
[2018-09-27 13:45] VITALS: BP 132/54
== END 2018-09-27 14:30 | DRG 191 ==
LOC: ED 17:50 → MED 21:03 → OBSVTOIN 09-26 16:00
PROVIDERS: ADMIT Hospitalist; ATTEND Internal Medicine
DX: J44.1 Chronic obstructive pulmonary disease with (acute) exacerbation (principal); J96.11 Chronic respiratory failure with hypoxia; F41.1 Generalized anxiety disorder; F43.23 Adjustment disorder with mixed anxiety and depressed mood; I73.9 Peripheral vascular disease, unspecified; I10 Essential (primary) hypertension; F17.210 Nicotine dependence, cigarettes, uncomplicated; K21.9 Gastro-esophageal reflux disease without esophagitis; K58.9 Irritable bowel syndrome, unspecified; I25.10 Atherosclerotic heart disease of native coronary artery without angina pectoris; F32.9 Major depressive disorder, single episode, unspecified; E78.5 Hyperlipidemia, unspecified; F25.0 Schizoaffective disorder, bipolar type; Z99.81 Dependence on supplemental oxygen; Z79.01 Long term (current) use of anticoagulants; Z90.89 Acquired absence of other organs; Z90.49 Acquired absence of other specified parts of digestive tract; Z88.8 Allergy status to other drugs, medicaments and biological substances; Z88.0 Allergy status to penicillin; Z88.1 Allergy status to other antibiotic agents; Z82.49 Family history of ischemic heart disease and other diseases of the circulatory system; Z81.8 Family history of other mental and behavioral disorders; Z86.718 Personal history of other venous thrombosis and embolism
CPT/HCPCS: 36415; 71046; 80048; 80053; 80178; 83735; 84100; 84484; 85025; 85610; 87040; 93005; 94640; 96365; 96375; 96376; 99285; A9270-GY; G0378; G8978-GP-CJ; G8979-GP-CH; G8987-GO-CI; G8988-GO-CH; J2060; J2270; J2930; J3475; J7512

== ENCOUNTER 2018-10-21 11:09 | Inpatient (IN) | payer MEDICARE, MEDICAID ==
[2018-10-21] MEDS ORDERED: methylPREDNISolone 125 MG* 2 ML VIAL IV ONE (11:41)
[2018-10-21 11:46] LABS: ABS Basophils 0 10^3/ul (0-0.2); ABS Eosinophils 0.2 10^3/ul (0-0.6); ABS Monocytes 0.5 10^3/ul (0-0.8); ABS Neutrophils 5.2 10^3/ul (1.5-7.7); ABS Nucleated RBC 0 10^3/ul; Eosinophil % 2.3 %; Hematocrit 30 % (35-47); Hemoglobin 9.9 g/dl (12.0-16.0); Mean Corpuscular HGB Conc 33 g/dl (31-36); Mean Corpuscular Hemoglobin 28 pg (27-31); Mean Corpuscular Volume 85 fL (80-97); Mean Platelet Volume 7.9 fL (7.4-10.4); Nucleated Red Blood Cells % 0; Platelet Count 220 10^3/ul (150-450); Red Cell Distribution Width 16 % (10.5-15); White Blood Count 6.9 10^3/ul (3.5-10.8)
[2018-10-21] MEDS ORDERED: Albuterol/Ipratropium NEB.SOL* Albuterol 2.5 MG/Ipratropium 0.5 MG 3 ML INH ONE ×2 (11:51→13:24)
--- NOTE | 2018-10-21 11:54 | ED ---
HPI Chest Pain - HPI Summary HPI Summary: This pt is a 62 y/o female presenting to [facility] via EMS for chest tightness and SOB. Pt reports she has had intermittent chest pain for the past couple of days , described as sharp. Currently she describes mid sternal chest pain that is nonradiating and described as tightness. Pt states that since this morning she has been SOB, breathing harder, with a dry cough. Denies fever, chills, diaphoresis, nausea, vomiting. 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 Pt has never had this in the past. She does wear 2L of O2 at night for COPD. PMHx: COPD, DVT on left leg with stents. Denies DC or PE. Pt is currently on Coumadin, she believes she might have missed a dose last night. PCP: Dr. Schrader. - History of Current Complaint Chief Complaint: EDChestPainROMI Time Seen by Provider: 10/21/18 11:30 Hx Obtained From: Patient Onset/Duration: Started Days Ago, Still Present Timing: Intermittent, Lasting Days Current Severity: Moderate Pain Intensity: 0 Chest Pain Location: Mid Sternal Chest Pain Radiates: No Character: Sharp/Stabbing - sharp Aggravating Factor(s): Nothing Alleviating Factor(s): Nothing Associated Signs and Symptoms: Positive: Chest Pain, Shortness of Breath, Cough. Negative: Fever, Chills, Diaphoresis, Nausea, Vomiting - Additional Pertinent History Primary Care Physician: [id number] - Allergy/Home Medications Allergies/Adverse Reactions: Allergies Allergy/AdvReac Type Severity Reaction Status Date / Time bupropion [From Wellbutrin] Allergy Agitation Verified 10/07/18 10:30 Cephalosporins Allergy Agitation Verified 10/07/18 10:30 chlorproethazine Allergy Agitation Verified 10/07/18 10:30 erythromycin base Allergy Diarrhea Verified 10/07/18 10:30 Penicillins Allergy Hives Verified 10/07/18 10:30 tobramycin Allergy Diarrhea Verified 10/07/18 10:30 Home Medications: Home Medications Nicotine Inhaler* 10 mg INH Q2H PRN 10/21/18 [History Confirmed 10/21/18] Nicotine PATCH 21 MG/24 HR* 21 mg TRANSDERM DAILY 10/21/18 [History Confirmed ] PMH/Surg Hx/FS Hx/Imm Hx Endocrine/Hematology History: Reports: Hx Anticoagulant Therapy, Hx Anemia, Other Endocrine/Hematological Disorders - L leg DVT Denies: Hx Diabetes, Hx Systemic Lupus Erythematosus, Hx Thyroid Disease Cardiovascular History: Reports: Hx Angina, Hx Coronary Artery Disease, Hx Deep Vein Thrombosis, Hx Hypercholesterolemia, Hx Hypertension, Hx Peripheral Vascular Disease, Other Cardiovascular Problems/Disorders - PERIPHERAL ARTERY DISEASE; CAD; DVT Denies: Hx Congestive Heart Failure, Hx Pacemaker/ICD Respiratory History: Reports: Hx Asthma, Hx Chronic Bronchitis, Hx Chronic Obstructive Pulmonary Disease (COPD) - 2L at home, Hx Pneumonia, Hx Seasonal Allergies, Other Respiratory Problems/Disorders - PNA Denies: Hx Cystic Fibrosis, Hx Lung Cancer, Hx Pleural Effusion, Hx Pulmonary Edema, Hx Pulmonary Embolism, Hx Sleep Apnea GI History: Reports: Hx Gall Bladder Disease - removed, Hx Gastroesophageal Reflux Disease, Hx Irritable Bowel, Other GI Disorders - hernia repair X 2 Denies: Hx Cirrhosis, Hx Crohn's Disease, Hx Diverticulosis History: Denies: Hx Dialysis, Hx Renal Disease Musculoskeletal History: Denies: Hx Arthritis, Hx Rheumatoid Arthritis, Hx Osteoporosis Sensory History: Denies: Hx Contacts or Glasses, Hx Glaucoma, Hx Deafness, Hx Hearing Aid, Hx Hearing Problem Opthamlomology History: Denies: Hx Contacts or Glasses, Hx Glaucoma Neurological History: Denies: Hx Headaches, Hx Seizures, Hx Transient Ischemic Attacks (TIA) Psychiatric History: Reports: Hx Anxiety, Hx Depression, Hx Inpatient Treatment , Hx Community Mental Health Tx, Hx Schizophrenia, Hx Bipolar Disorder, Hx Suicide Attempt Denies: Hx Eating Disorder, Hx Panic Disorder, Hx of Violent Episodes Against Others - Cancer History Hx Chemotherapy: No - Surgical History Surgery Procedure, Year, and Place: bilat thumb repairs, hernia repairs X 2, cholecystectomy, appendectomy Hx Anesthesia Reactions: No - Immunization History Date of Tetanus Vaccine: UTD Date of Influenza Vaccine: UTD Infectious Disease History: No Infectious Disease History: Denies: Hx Clostridium Difficile, Hx Hepatitis, Hx Human Immunodeficiency Virus (HIV), Hx of Known/Suspected MRSA, Hx Shingles, Hx Tuberculosis, Traveled Outside the [place] in Last 30 Days - Family History Known Family History: Positive: Cardiac Disease - DC, Other - schizophrenia, anxiety Negative: Hypertension, Diabetes Family History: Negative HTN/DM per EMR - Social History Alcohol Use: Occasionally Hx Substance Use: No Substance Use Type: Reports: None Hx Tobacco Use: Yes Smoking Status (MU): Current Every Day Smoker Type: Cigarettes Amount Used/How Often: half a pack a day Have You Smoked in the Last Year: Yes Review of Systems Negative: Fever, Chills, Skin Diaphoresis Negative: Erythema Negative: Sore Throat Positive: Chest Pain Positive: Shortness Of Breath, Cough Negative: Abdominal Pain, Vomiting, Nausea Negative: dysuria, hematuria Negative: Myalgia, Edema Negative: Rash Neurological: Other - NEG: dizziness All Other Systems Reviewed And Are Negative: Yes Physical Exam - Summary Physical Exam Summary: Constitutional: Well-developed, Well-nourished, Alert. (-) Distressed Skin: Warm, Dry HENT: Normocephalic; Atraumatic Eyes: Conjunctiva normal Neck: Musculoskeletal ROM normal neck. (-) JVD, (-) Stridor, (-) Tracheal deviation Cardio: Rhythm regular, rate normal, Heart sounds normal; Intact distal pulses; The pedal pulses are 2+ and symmetric. Radial pulses are 2+ and symmetric. (-) Murmur Pulmonary/Chest wall: Effort normal. (-) Respiratory distress, Wheezing, (-) Rales Abd: Soft, (-) Tenderness, (-) Distension, (-) Guarding, (-) Rebound Musculoskeletal: (-) Edema Lymph: (-) Cervical adenopathy Neuro: Alert, Oriented x3 Psych: Mood and affect Normal Triage Information Reviewed: Yes Vital Signs On Initial Exam: Initial Vitals Temp Pulse Resp BP Pulse Ox 98.1 F 77 20 120/57 99 10/21/18 11:15 10/21/18 11:15 10/21/18 11:15 10/21/18 11:15 10/21/18 11:15 Vital Signs Reviewed: Yes Diagnostics - Vital Signs Vital Signs Temp Pulse Resp BP Pulse Ox 10/21/18 11:15 98.1 F 77 20 120/57 99 - Laboratory Lab Results: Lab Results 10/21/18 Range/Units 11:39 WBC 6.9 (3.5-10.8) 10^3/ul RBC 3.50 L (4.00-5.40) 10^6/ul Hgb 9.9 L (12.0-16.0) g/dl Hct 30 L (35-47) % MCV 85 (80-97) fL MCH 28 (27-31) pg MCHC 33 (31-36) g/dl RDW 16 H (10.5-15) % Plt Count 220 (150-450) 10^3/ul MPV 7.9 (7.4-10.4) fL Neut % (Auto) 75.8 % Lymph % (Auto) 14.0 % [place] % (Auto) 7.5 % Eos % (Auto) 2.3 % Baso % (Auto) 0.4 % Absolute Neuts (auto) 5.2 (1.5-7.7) 10^3/ul Absolute Lymphs (auto) 1.0 (1.0-4.8) 10^3/ul Absolute Monos (auto) 0.5 (0-0.8) 10^3/ul Absolute Eos (auto) 0.2 (0-0.6) 10^3/ul Absolute Basos (auto) 0 (0-0.2) 10^3/ul Absolute Nucleated RBC 0 10^3/ul Nucleated RBC % 0 Result Diagrams: 10/21/18 11:39 10/21/18 11:39 Lab Statement: Any lab studies that have been ordered have been reviewed, and results considered in the medical decision making process. - Radiology Chest XR Radiology Interpretation Completed By: Radiologist Summary of Radiographic Findings: IMPRESSION: No active cardiopulmonary disease. Dr. Denney has reviewed this report. - EKG 11:43 Cardiac Rate: NL - at 70 bpm EKG Rhythm: Sinus Rhythm Summary of EKG Findings: No STEMI. Re-Evaluation - Re-Evaluation First Eval Re-Evaluation Time: 13:22 Comment: Pt is still wheezing and still has chest tightness. She reports some improvement after duoneb. Chest Pain Course/Dx - Course Assessment/Plan: Pt is a 62 y/o female, with hx of COPD, DVT, who presents to the ED via EMS for chest tightness and SOB. Pt reports she has had intermittent chest pain for the past couple of days, described as sharp. Currently she describes mid sternal chest pain that is nonradiating and described as tightness. Pt states that since this morning she has been SOB, breathing harder , with a dry cough. Denies fever, chills, diaphoresis, nausea, vomiting. 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 Labs show hemoglobin of 9.9, hematocrit of 30, INR of 2.58, APTT 44.1. Chest XR is negative for an active cardiopulmonary disease. In the ED course the pt was given solu medrol, duoneb. On re-evaluation pt is still wheezing and still has chest tightness. She reports some improvement after duoneb. Will give a second duoneb. Discussed pt care with Dr. Nguyen, hospitalist, who accepted the pt for admission. - Diagnoses Provider Diagnoses: COPD exacerbation, Chest pain, unspecified - Provider Notifications Discussed Care Of Patient With: Radha Nguyen - hospitalist Time Discussed With Above Provider: 14:02 Instructed by Provider To: Admit As Inpatient Discharge - Sign-Out/Discharge Documenting (check all that apply): Patient Departure [place] [facility] [place] Received Moderate/Deep Sedation with Procedure: No - Discharge Plan Condition: Stable Disposition: ADMITTED TO [facility] Referrals: Tom Schrader MD [Primary Care Provider] - - Attestation Statements Document Initiated by Scribe: Yes Documenting Scribe: Karma Kc Provider For Whom Scribe is Documenting (Include Credential): Tab Denney MD Scribe Attestation: Karma Laboy, scribed for Tab Denney MD on 10/21/18 at 1529. Status of Scribe Document: Ready
[2018-10-21 12:03] LABS: Activated Partial Thrombo Time 44.1 seconds (26.0-36.3); INR 2.58 (0.77-1.02)
[2018-10-21 12:07] LABS: Albumin 3.7 g/dL (3.2-5.2); Albumin/Globulin Ratio 1.5 (1-3); BUN/Creatinine Ratio 12.8 (8-20); Calcium 9.2 mg/dL (8.6-10.3); EGFR African American 73.5 (>60); EGFR Non-African American 60.7 (>60); Globulin 2.5 g/dL (2-4); Potassium 4.7 mmol/L (3.5-5.0); Total Bilirubin 0.4 mg/dL (0.2-1.0); Total Protein 6.2 g/dL (6.4-8.9)
[2018-10-21] MEDS ORDERED: Acetaminophen TAB* 325 MG PO PRN (14:41)
[2018-10-21] MEDS ORDERED: LORazepam TAB(*) 0.5 MG PO PRN (14:45)
[2018-10-21] MEDS ORDERED: hydrOXYzine HCL TAB* 50 MG PO PRN (14:45)
[2018-10-21] MEDS ORDERED: Albuterol 2.5 MG/3 ML NEB.SOL* (0.083%) INH SCH (15:00)
[2018-10-21] MEDS ORDERED: Mouth Piece, Nicotine* 1 EACH CARTRIDGE INH PRN (15:15)
[2018-10-21] MEDS: Albuterol/Ipratropium NEB.SOL* Albuterol 2.5 MG/Ipratropium 0.5 MG 3 ML INH SCH ×2 (15:20→19:29)
[2018-10-21] MEDS ORDERED: Albuterol 2.5 MG/3 ML NEB.SOL* (0.083%) INH PRN (15:27)
[2018-10-21] MEDS: Warfarin TAB(*) 5 MG PO SCH (17:00)
[2018-10-21] MEDS: Atorvastatin* 10 MG TAB PO SCH (17:00)
[2018-10-21] MEDS: Nicotine Inhaler* 10 MG AMP INH PRN (17:01)
--- NOTE | 2018-10-21 19:42 | HP ---
CC: Dr. Schrader * HISTORY AND PHYSICAL: DATE OF ADMISSION: 10/21/18 PROVIDER: Crystal Marcano NP PRIMARY CARE PROVIDER: Dr. Schrader. ATTENDING PHYSICIAN WHILE IN THE HOSPITAL: Radha Nguyen MD * (dictated by Crystal Marcano NP) CHIEF COMPLAINT: 1. Shortness of breath. 2. Chest pain. HISTORY OF PRESENT ILLNESS: Ms. Camejo is a 62-year-old female with past medical history significant for COPD with chronic hypoxic respiratory failure requiring 2 L of oxygen at night, hypertension, peripheral artery disease, hyperlipidemia, coronary artery disease, schizophrenia, bipolar, anxiety disorder, history of left lower leg DVT, who presented to the emergency room with complaints of shortness of breath and cough x2 days as well as intermittent chest pain x2 months. The patient reports that she developed increased shortness of breath approximately 2 days ago, which became worse this morning at 4 a.m. She reports she has nonproductive cough. She denies any fever or chills. Denies any nausea, vomiting, or abdominal pain. She denies any hemoptysis. She denies any weakness or dysphagia, arthralgias or myalgias. She denies any rashes or lesions. Due to her increased shortness of breath, she presented to the emergency room for further evaluation. While in the emergency room, the patient had routine lab work done and chest x- ray, which showed no active cardiopulmonary disease. Due to her increased shortness of breath and chest pain, we were asked to see and evaluate her for admission. PAST MEDICAL HISTORY: Significant for: 1. COPD. 2. Chronic hypoxic respiratory failure requiring 2 L of O2 at night. 3. Hypertension. 4. Peripheral artery disease. 5. Hyperlipidemia. 6. Coronary artery disease. 7. Schizophrenia. 8. Bipolar. 9. Anxiety. 10. Depression. 11. History of left lower leg DVT. PAST SURGICAL HISTORY: 1. Appendectomy. 2. Hernia repair x2. 3. Right lower extremity stenting. 4. Cholecystectomy. MEDICATIONS: Home medications include: 1. Tylenol 650 mg p.o. q.4 hours as needed for pain. 2. Albuterol 1 neb q.2 hours p.r.n. shortness of breath. 3. ProAir RespiClick 2 puffs q.4 hours as needed for shortness of breath. 4. DuoNeb 1 neb q.4 hours. 5. Amlodipine 10 mg p.o. daily. 6. Lipitor 10 mg p.o. daily. 7. BuSpar 10 mg p.o. b.i.d. 8. Nexium 40 mg p.o. daily. 9. Breo Ellipta 200/25 one puff inhaled daily. 10. Gabapentin 400 mg p.o. b.i.d. 11. Atarax 50 mg p.o. 4 times a day p.r.n. anxiety. 12. Imdur 30 mg p.o. daily. 13. [place] 300 mg p.o. b.i.d. 14. Melatonin 3 mg p.o. at bedtime. 15. Metoprolol tartrate 25 mg p.o. b.i.d. 16. Remeron 15 mg p.o. at bedtime. 17. Singulair 10 mg p.o. daily. 18. Nicotine inhaler 10 mg inhaled q.2 hours as needed. 19. Nicotine patch 21 mg for 24 hours 1 patch topically daily. 20. Zyprexa 10 mg p.o. daily. 21. Incruse Ellipta (Anoro) 62.5/25 one inhaled daily. 22. Coumadin 5 mg p.o. daily. ALLERGIES: 1. BUPROPION. 2. CEPHALOSPORINS. 3. . 4. ERYTHROMYCIN. 5. PENICILLIN. 6. TOBRAMYCIN. FAMILY HISTORY: Mother in her 70s of COPD. Father in his 70s of an [place]. No reported history of diabetes. SOCIAL HISTORY: The patient continues to smoke half a pack a day. She smoked for 40 years. She drinks alcohol rarely. She is disabled. She is single. Her surrogate decision maker in the event she is unable to make her own decisions is her son, Maikel Camejo. She is a full code. REVIEW OF SYSTEMS: A review of 14 systems was completed. All pertinent positives and negatives are as per the HPI. Otherwise, negative. PHYSICAL EXAMINATION GENERAL: Ms. Camejo is a 62-year-old female. She is in mild respiratory distress, resting on the stretcher in the emergency room. She is alert and oriented x3. VITAL SIGNS: Temperature 98.1, heart rate 77, respirations 20 to 22, O2 saturation 99% on 4 L nasal cannula, blood pressure 120/57. HEENT: Head is atraumatic, normocephalic. Eyes: EOMs are intact. Sclerae anicteric and not pale. Oral mucosa appeared to be moist. No oropharyngeal erythema. NECK: Supple. LUNGS: With expiratory wheezes and diminished throughout bilaterally. No rales or rhonchi. CARDIAC: S1, S2. Regular rate and rhythm. No murmurs, rubs, or gallops. ABDOMEN: Soft, flat, nontender. Bowel sounds are present x4. EXTREMITIES: Pedal pulses are +2 bilaterally. She is able to move all 4 extremities with 5/5 strength. Her left leg is chronically bigger than the right. She denies any calf tenderness or pain in the left leg at this time. NEUROLOGIC: She is awake, alert, oriented x3. Speech is clear. Thought process intact. No gross focal deficits are noted. SKIN: Intact. LABORATORY DATA AND DIAGNOSTIC STUDIES: WBCs are 6.9, RBCs 3.50, hemoglobin 9.9 , hematocrit was 30, platelet count 220. INR 2.58. APTT was 44.1. D-dimer was less than 200. Sodium 137, potassium 4.7, chloride 106, carbon dioxide was 28, anion gap was 3, BUN was 12, creatinine 0.94, glucose was 90. Lactic acid 0.6. Calcium 9.2. ASTs were 12, ALTs were 12, alkaline phosphatase was 66. Troponin was 0.00 x2. Chest x-ray, radiologist's impression, no active cardiopulmonary disease. She had an EKG in the emergency room, which showed sinus rhythm at a rate of 70. ASSESSMENT AND PLAN: Ms. Camejo is a 62-year-old female who presented to the emergency room with complaints of worsening shortness of breath x2 days and intermittent chest pain x2 months. We were asked to see and evaluate her due to her increased shortness of breath. She will be admitted under observation for: 1. Chronic obstructive pulmonary disease exacerbation. The patient continues to have some expiratory wheezes. She did receive albuterol nebulizer and Solu- Medrol in the emergency room. I am going to continue her home medications of ProAir albuterol and Atrovent nebulizers, ProAir albuterol inhaler as needed for shortness of breath, Breo and Incruse Ellipta inhalers. I will start her on prednisone 40 mg p.o. daily starting tomorrow and she did have Solu-Medrol 125 in the emergency room today. I am going to hold off on antibiotic therapy as there is no clear evidence of infection at this point. The patient has no elevated white count. She does not have any fever or chills. 2. Chest pain. The patient complains of intermittent sharp left-sided chest pain that radiates like a shock down her arm, lasts approximately 2 seconds and goes away. The patient reports that she has had this intermittently x2 months. She reports the chest pain is associated with rest. She denies any chest pain with exertion, movement or cough. She did have troponins in the emergency room that were negative x2. I will repeat a third troponin. She will be placed on telemetry and monitored overnight. At this point, it does appear that her chest pain is related to her shortness of breath. 3. Chronic hypoxic respiratory failure. I will continue the patient on 2 L nasal cannula. 4. Hypertension. The patient will continue on her home medications as previously prescribed. 5. Schizophrenia, bipolar, anxiety and depression. We will continue on her home medications as previously prescribed. 6. History of left lower leg DVT. The patient will continue on Coumadin 5 mg p.o. daily. Her INR is therapeutic today at 2.48. 7. DVT prophylaxis. The patient has a total score 6 making her high risk. She will continue on Coumadin as above. 8. Code status. She is a full code. TIME SPENT: On this admission was 60 minutes, greater than half the time was spent with the patient at the bedside obtaining my history and physical, the other half the time was spent going over my plan of care and implementing my plan of care. I have discussed this with my attending, Dr. Radha Nguyen, she is in agreement with my plan. CRYSTAL MARCANO, CORPORATE STAFF ACCOUNTANT [id number]/[facility] #: [id number] ANNITA
[2018-10-21] MEDS: Melatonin 3 MG TAB PO SCH (21:36)
[2018-10-21] MEDS: busPIRone TAB* 10 MG PO SCH (21:36)
[2018-10-21] MEDS: Gabapentin CAP(*) 400 MG PO SCH (21:37)
[2018-10-21] MEDS: Mirtazapine TAB* 15 MG PO SCH (21:37)
[2018-10-21] MEDS: Metoprolol Tartrate TAB* 25 MG PO SCH (21:37)
[2018-10-21] MEDS: Lithium Carbonate TAB* 300 MG PO SCH (21:37)
[2018-10-21] MEDS: Nicotine Patch Removal NOTE PATCH OFF SCH (21:40)
[2018-10-22] MEDS: Albuterol/Ipratropium NEB.SOL* Albuterol 2.5 MG/Ipratropium 0.5 MG 3 ML INH PRN ×2 (05:04→12:47)
[2018-10-22 06:35] LABS: ABS Basophils 0 10^3/ul (0-0.2); ABS Eosinophils 0 10^3/ul (0-0.6); ABS Lymphocytes 0.4 10^3/ul (1.0-4.8); ABS Monocytes 0.2 10^3/ul (0-0.8); ABS Neutrophils 5.8 10^3/ul (1.5-7.7); ABS Nucleated RBC 0 10^3/ul; Eosinophil % 0 %; Hematocrit 29 % (35-47); Hemoglobin 9.6 g/dl (12.0-16.0); Lymphocyte % 5.5 %; Mean Corpuscular HGB Conc 33 g/dl (31-36); Mean Corpuscular Hemoglobin 28 pg (27-31); Mean Corpuscular Volume 84 fL (80-97); Nucleated Red Blood Cells % 0; Platelet Count 197 10^3/ul (150-450); Red Blood Count 3.45 10^6/ul (4.00-5.40); Red Cell Distribution Width 16 % (10.5-15); White Blood Count 6.4 10^3/ul (3.5-10.8)
[2018-10-22 06:53] LABS: BUN/Creatinine Ratio 24.1 (8-20); Calcium 10.2 mg/dL (8.6-10.3); EGFR African American 84.8 (>60); EGFR Non-African American 70.1 (>60); Potassium 4.8 mmol/L (3.5-5.0)
[2018-10-22] MEDS: Gabapentin CAP(*) 400 MG PO SCH ×2 (09:22→21:08)
[2018-10-22] MEDS: predniSONE TAB* 20 MG PO SCH (09:22)
[2018-10-22] MEDS: Pantoprazole TAB * 40 MG TAB PO SCH (09:22)
[2018-10-22] MEDS: OLANzapine TAB* 10 MG PO SCH (09:22)
[2018-10-22] MEDS: Metoprolol Tartrate TAB* 25 MG PO SCH ×2 (09:23→21:08)
[2018-10-22] MEDS: Lithium Carbonate TAB* 300 MG PO SCH ×2 (09:23→21:08)
[2018-10-22] MEDS: amLODIPine TAB* 5 MG PO SCH (09:23)
[2018-10-22] MEDS: busPIRone TAB* 10 MG PO SCH ×2 (09:24→21:08)
[2018-10-22] MEDS: Montelukast Sodium TAB* 10 MG PO SCH (09:24)
[2018-10-22] MEDS: Nicotine Inhaler* 10 MG AMP INH PRN ×3 (09:24→21:16)
[2018-10-22] MEDS: Isosorbide Mononitrate ER TAB* 30 MG PO SCH (09:24)
[2018-10-22] MEDS: [UNRECOGNIZED DRUG - OTHER] INH SCH (09:25)
[2018-10-22] MEDS: Nicotine PATCH 21 MG/24 HR* PATCH TRANSDERM SCH (09:25)
[2018-10-22] MEDS: NF:Fluticasone/Vilanterol MDI(NF) 200/25 MDI INH SCH (09:26)
[2018-10-22] MEDS: Albuterol/Ipratropium NEB.SOL* Albuterol 2.5 MG/Ipratropium 0.5 MG 3 ML INH SCH ×3 (14:48→23:07)
[2018-10-22] MEDS: Warfarin TAB(*) 5 MG PO SCH (16:18)
[2018-10-22] MEDS: Atorvastatin* 10 MG TAB PO SCH (16:18)
--- NOTE | 2018-10-22 17:14 | PN ---
Subjective Date of Service: 10/22/18 Interval History: Less SOB but still too SOB to go home. Non-productive cough. No subj wheezing. Objective Active Medications: Acetaminophen (Tylenol Tab*) 650 mg PO Q4H PRN PRN Reason: FEVER/PAIN Albuterol/Ipratropium (Duoneb (Albuterol 2.5 Mg/Ipratropium 0.5 Mg)) 1 neb INH [id number] AWAKE [facility] Last Admin: 10/22/18 14:48 Dose: 1 neb Amlodipine Besylate (Norvasc Tab*) 10 mg PO DAILY [facility] Last Admin: 10/22/18 09:23 Dose: 10 mg Atorvastatin Calcium (Lipitor*) 10 mg PO 1700 [facility] Last Admin: 10/22/18 16:18 Dose: 10 mg Buspirone HCl (Buspar Tab*) 10 mg PO BID [facility] Last Admin: 10/22/18 09:24 Dose: 10 mg Device (Nicotine Mouth Piece*) 1 each INH Q2H PRN PRN Reason: CRAVINGS Last Admin: 10/21/18 17:01 Dose: 1 each Fluticasone/Vilanterol (Breo Ellipta Mdi 200/25(Nf)) 1 puff INH DAILY [facility] Last Admin: 10/22/18 09:26 Dose: Not Given Gabapentin (Neurontin Cap(*)) 400 mg PO BID [facility] Last Admin: 10/22/18 09:22 Dose: 400 mg Hydroxyzine HCl (Atarax Tab*) 50 mg PO QID PRN PRN Reason: ANXIETY Isosorbide Mononitrate (Imdur Er Tab*) 30 mg PO DAILY [facility] Last Admin: 10/22/18 09:24 Dose: 30 mg [place] Carbonate ([place] Carbonate Tab*) 300 mg PO BID [facility] Last Admin: 10/22/18 09:23 Dose: 300 mg Lorazepam (Ativan Tab(*)) 0.5 mg PO Q6H PRN PRN Reason: ANXIETY Melatonin (Melatonin) 3 mg PO BEDTIME [facility]; Protocol Last Admin: 10/21/18 21:36 Dose: 3 mg Metoprolol Tartrate (Lopressor Tab*) 25 mg PO BID [facility] Last Admin: 10/22/18 09:23 Dose: 25 mg Mirtazapine (Remeron Tab*) 15 mg PO BEDTIME [facility] Last Admin: 10/21/18 21:37 Dose: 15 mg Montelukast Sodium (Singulair Tab*) 10 mg PO DAILY [facility] Last Admin: 10/22/18 09:24 Dose: 10 mg Nicotine (Nicotine Inhaler*) 10 mg INH Q2H PRN PRN Reason: CRAVINGS Last Admin: 10/22/18 16:17 Dose: 10 mg Nicotine (Nicotine Patch 21 Mg/24 Hr*) 1 patch TRANSDERM DAILY [facility] Last Admin: 10/22/18 09:25 Dose: Not Given Olanzapine (Zyprexa Tab*) 10 mg PO DAILY [facility] Last Admin: 10/22/18 09:22 Dose: 10 mg Pantoprazole Sodium (Protonix Tab*) 40 mg PO DAILY [facility]; Protocol Last Admin: 10/22/18 09:22 Dose: 40 mg Pharmacy Profile Note (Nicotine Patch Removal Note*) 1 note PATCH OFF 2100 [facility] Last Admin: 10/21/18 21:40 Dose: Not Given Prednisone (Deltasone Tab*) 40 mg PO DAILY [facility] Last Admin: 10/22/18 09:22 Dose: 40 mg Umeclidinium [place] (Incruse Ellipta Mdi (Nf)) 1 inh INH DAILY [facility] Last Admin: 10/22/18 09:25 Dose: Not Given Warfarin Sodium (Coumadin Tab(*)) 5 mg PO DAILY@1700 [facility]; Protocol Last Admin: 10/22/18 16:18 Dose: 5 mg Vital Signs - 8 hr 10/22/18 10/22/18 10/22/18 09:22 11:10 11:46 Temperature 98.2 F 98.5 F Pulse Rate 81 73 Respiratory 22 20 20 Rate Blood Pressure 130/58 114/31 (mmHg) O2 Sat by Pulse 97 98 Oximetry 10/22/18 10/22/18 10/22/18 12:31 14:48 15:37 Temperature 98.1 F Pulse Rate 88 93 Respiratory 20 18 20 Rate Blood Pressure 109/50 (mmHg) O2 Sat by Pulse 98 95 Oximetry Oxygen Devices in Use Now: Nasal Cannula Appearance: Alert, partly up in bed. In good spirits. Somewhat tachypneic but otherwise looks comfortable. Eyes: No Scleral Icterus Respiratory: Symmetrical Chest Expansion and Respiratory Effort, Clear to Percussion, - - diminished BS BL. Cardiovascular: RRR, No Edema, - - 2/6 systolic murmur RSB. Abdominal: NL Sounds; No Tenderness; No Distention, No Hepatosplenomegaly, - Extremities: No Edema, No Clubbing, Cyanosis, - Skin: No Rash or Ulcers, No Nodules or Sclerosis, - Neurological: Alert and Oriented x 3, NL Sensation Result Diagrams: 10/22/18 06:26 10/22/18 06:26 Additional Lab and Data: Lab Results 10/21/18 Range/Units 11:39 WBC 6.9 (3.5-10.8) 10^3/ul RBC 3.50 L (4.00-5.40) 10^6/ul Hgb 9.9 L (12.0-16.0) g/dl Hct 30 L (35-47) % MCV 85 (80-97) fL MCH 28 (27-31) pg MCHC 33 (31-36) g/dl RDW 16 H (10.5-15) % Plt Count 220 (150-450) 10^3/ul MPV 7.9 (7.4-10.4) fL Neut % (Auto) 75.8 % Lymph % (Auto) 14.0 % [place] % (Auto) 7.5 % Eos % (Auto) 2.3 % Baso % (Auto) 0.4 % Absolute Neuts (auto) 5.2 (1.5-7.7) 10^3/ul Absolute Lymphs (auto) 1.0 (1.0-4.8) 10^3/ul Absolute Monos (auto) 0.5 (0-0.8) 10^3/ul Absolute Eos (auto) 0.2 (0-0.6) 10^3/ul Absolute Basos (auto) 0 (0-0.2) 10^3/ul Absolute Nucleated RBC 0 10^3/ul Nucleated RBC % 0 Assess/Plan/Problems-Billing Assessment: - Patient Problems (1) COPD exacerbation Current Visit: No Status: Acute Priority: Medium Code(s): J44.1 - CHRONIC OBSTRUCTIVE PULMONARY DISEASE W (ACUTE) EXACERBATION SNOMED Code(s): 196421273 Comment: Start prednisone taper 10/24. Continue montelukast, umeclidinium, Duoneb. (2) DVT (deep venous thrombosis) Current Visit: No Status: Chronic Code(s): I82.409 - ACUTE EMBOLISM AND THOMBOS UNSP DEEP VN UNSP LOWER EXTREMITY SNOMED Code(s): 531978650 Comment: INR 10/23. Continue warfarin. (3) Nicotine dependence Current Visit: No Status: Chronic Code(s): F17.200 - NICOTINE DEPENDENCE, UNSPECIFIED, UNCOMPLICATED SNOMED Code(s): 51411330 Comment: NRT ordered. (4) Schizoaffective disorder, bipolar type Current Visit: No Status: Chronic Priority: Medium Onset Date: 09/29/15 Code(s): F25.0 - SCHIZOAFFECTIVE DISORDER, BIPOLAR TYPE SNOMED Code(s): 90574381 Comment: -Continue Olanzapine, mirtazapine, lithium, buspirone, gabapentin.
[2018-10-22] MEDS: Mirtazapine TAB* 15 MG PO SCH (21:08)
[2018-10-22] MEDS: Melatonin 3 MG TAB PO SCH (21:08)
[2018-10-22] MEDS: Nicotine Patch Removal NOTE PATCH OFF SCH (21:09)
[2018-10-23] MEDS: Albuterol/Ipratropium NEB.SOL* Albuterol 2.5 MG/Ipratropium 0.5 MG 3 ML INH SCH ×5 (03:19→19:40)
[2018-10-23] MEDS: Nicotine Inhaler* 10 MG AMP INH PRN ×5 (03:30→20:00)
[2018-10-23 06:33] LABS: INR 2.88 (0.77-1.02)
[2018-10-23] MEDS: Gabapentin CAP(*) 400 MG PO SCH ×2 (08:49→20:01)
[2018-10-23] MEDS: busPIRone TAB* 10 MG PO SCH ×2 (08:49→20:01)
[2018-10-23] MEDS: amLODIPine TAB* 5 MG PO SCH (08:49)
[2018-10-23] MEDS: Metoprolol Tartrate TAB* 25 MG PO SCH ×2 (08:49→20:02)
[2018-10-23] MEDS: OLANzapine TAB* 10 MG PO SCH (08:49)
[2018-10-23] MEDS: Pantoprazole TAB * 40 MG TAB PO SCH (08:49)
[2018-10-23] MEDS: predniSONE TAB* 20 MG PO SCH (08:49)
[2018-10-23] MEDS: Lithium Carbonate TAB* 300 MG PO SCH ×2 (08:49→20:01)
[2018-10-23] MEDS: Isosorbide Mononitrate ER TAB* 30 MG PO SCH (08:49)
[2018-10-23] MEDS: Montelukast Sodium TAB* 10 MG PO SCH (08:49)
[2018-10-23] MEDS: NF:Fluticasone/Vilanterol MDI(NF) 200/25 MDI INH SCH (08:50)
[2018-10-23] MEDS: [UNRECOGNIZED DRUG - OTHER] INH SCH (08:50)
[2018-10-23] MEDS: Nicotine PATCH 21 MG/24 HR* PATCH TRANSDERM SCH (08:50)
--- NOTE | 2018-10-23 12:35 | PN ---
Subjective Date of Service: 10/23/18 Interval History: No subj change. Dry cough. AGUILAR. Objective Active Medications: Acetaminophen (Tylenol Tab*) 650 mg PO Q4H PRN PRN Reason: FEVER/PAIN Albuterol/Ipratropium (Duoneb (Albuterol 2.5 Mg/Ipratropium 0.5 Mg)) 1 neb INH [id number] AWAKE [facility] Last Admin: 10/23/18 07:34 Dose: 1 neb Amlodipine Besylate (Norvasc Tab*) 10 mg PO DAILY [facility] Last Admin: 10/23/18 08:49 Dose: 10 mg Atorvastatin Calcium (Lipitor*) 10 mg PO 1700 [facility] Last Admin: 10/22/18 16:18 Dose: 10 mg Buspirone HCl (Buspar Tab*) 10 mg PO BID [facility] Last Admin: 10/23/18 08:49 Dose: 10 mg Device (Nicotine Mouth Piece*) 1 each INH Q2H PRN PRN Reason: CRAVINGS Last Admin: 10/21/18 17:01 Dose: 1 each Fluticasone/Vilanterol (Breo Ellipta Mdi 200/25(Nf)) 1 puff INH DAILY [facility] Last Admin: 10/23/18 08:50 Dose: Not Given Gabapentin (Neurontin Cap(*)) 400 mg PO BID [facility] Last Admin: 10/23/18 08:49 Dose: 400 mg Hydroxyzine HCl (Atarax Tab*) 50 mg PO QID PRN PRN Reason: ANXIETY Isosorbide Mononitrate (Imdur Er Tab*) 30 mg PO DAILY [facility] Last Admin: 10/23/18 08:49 Dose: 30 mg [place] Carbonate ([place] Carbonate Tab*) 300 mg PO BID [facility] Last Admin: 10/23/18 08:49 Dose: 300 mg Lorazepam (Ativan Tab(*)) 0.5 mg PO Q6H PRN PRN Reason: ANXIETY Melatonin (Melatonin) 3 mg PO BEDTIME [facility]; Protocol Last Admin: 10/22/18 21:08 Dose: 3 mg Metoprolol Tartrate (Lopressor Tab*) 25 mg PO BID [facility] Last Admin: 10/23/18 08:49 Dose: 25 mg Mirtazapine (Remeron Tab*) 15 mg PO BEDTIME [facility] Last Admin: 10/22/18 21:08 Dose: 15 mg Montelukast Sodium (Singulair Tab*) 10 mg PO DAILY [facility] Last Admin: 10/23/18 08:49 Dose: 10 mg Nicotine (Nicotine Inhaler*) 10 mg INH Q2H PRN PRN Reason: CRAVINGS Last Admin: 10/23/18 09:14 Dose: 10 mg Nicotine (Nicotine Patch 21 Mg/24 Hr*) 1 patch TRANSDERM DAILY [facility] Last Admin: 10/23/18 08:50 Dose: Not Given Olanzapine (Zyprexa Tab*) 10 mg PO DAILY [facility] Last Admin: 10/23/18 08:49 Dose: 10 mg Pantoprazole Sodium (Protonix Tab*) 40 mg PO DAILY [facility]; Protocol Last Admin: 10/23/18 08:49 Dose: 40 mg Pharmacy Profile Note (Nicotine Patch Removal Note*) 1 note PATCH OFF 2100 [facility] Last Admin: 10/22/18 21:09 Dose: Not Given Umeclidinium [place] (Incruse Ellipta Mdi (Nf)) 1 inh INH DAILY [facility] Last Admin: 10/23/18 08:50 Dose: Not Given Warfarin Sodium (Coumadin Tab(*)) 5 mg PO DAILY@1700 [facility]; Protocol Last Admin: 10/22/18 16:18 Dose: 5 mg Vital Signs - 8 hr 10/23/18 10/23/18 10/23/18 07:36 07:59 08:49 Temperature 97.9 F Pulse Rate 78 78 Respiratory 18 24 22 Rate Blood Pressure 125/51 (mmHg) O2 Sat by Pulse 99 99 Oximetry 10/23/18 10/23/18 11:27 11:28 Temperature 98.1 F Pulse Rate 65 Respiratory 20 20 Rate Blood Pressure 121/48 (mmHg) O2 Sat by Pulse 99 Oximetry Oxygen Devices in Use Now: Nasal Cannula Appearance: Alert, in a chair. In fair spirits. Occ dry cough during my visit. Eyes: No Scleral Icterus Respiratory: Symmetrical Chest Expansion and Respiratory Effort, Clear to Percussion, - - mild wheezing BL Extremities: No Edema, No Clubbing, Cyanosis, - Skin: No Rash or Ulcers, No Nodules or Sclerosis, - Neurological: Alert and Oriented x 3, NL Sensation Result Diagrams: 10/22/18 06:26 10/22/18 06:26 Additional Lab and Data: Lab Results 10/21/18 Range/Units 11:39 WBC 6.9 (3.5-10.8) 10^3/ul RBC 3.50 L (4.00-5.40) 10^6/ul Hgb 9.9 L (12.0-16.0) g/dl Hct 30 L (35-47) % MCV 85 (80-97) fL MCH 28 (27-31) pg MCHC 33 (31-36) g/dl RDW 16 H (10.5-15) % Plt Count 220 (150-450) 10^3/ul MPV 7.9 (7.4-10.4) fL Neut % (Auto) 75.8 % Lymph % (Auto) 14.0 % [place] % (Auto) 7.5 % Eos % (Auto) 2.3 % Baso % (Auto) 0.4 % Absolute Neuts (auto) 5.2 (1.5-7.7) 10^3/ul Absolute Lymphs (auto) 1.0 (1.0-4.8) 10^3/ul Absolute Monos (auto) 0.5 (0-0.8) 10^3/ul Absolute Eos (auto) 0.2 (0-0.6) 10^3/ul Absolute Basos (auto) 0 (0-0.2) 10^3/ul Absolute Nucleated RBC 0 10^3/ul Nucleated RBC % 0 Assess/Plan/Problems-Billing Assessment: - Patient Problems (1) COPD exacerbation Current Visit: No Status: Acute Priority: Medium Code(s): J44.1 - CHRONIC OBSTRUCTIVE PULMONARY DISEASE W (ACUTE) EXACERBATION SNOMED Code(s): 894761609 Comment: Reduce prednisone to 35 mg on 10/24. Continue montelukast, umeclidinium, Duoneb. Add mometasone/formoterol 10/23. (2) DVT (deep venous thrombosis) Current Visit: No Status: Chronic Code(s): I82.409 - ACUTE EMBOLISM AND THOMBOS UNSP DEEP VN UNSP LOWER EXTREMITY SNOMED Code(s): 546308899 Comment: INR 10/23. Continue warfarin. (3) Nicotine dependence Current Visit: No Status: Chronic Code(s): F17.200 - NICOTINE DEPENDENCE, UNSPECIFIED, UNCOMPLICATED SNOMED Code(s): 49338241 Comment: NRT ordered. (4) Schizoaffective disorder, bipolar type Current Visit: No Status: Chronic Priority: Medium Onset Date: 09/29/15 Code(s): F25.0 - SCHIZOAFFECTIVE DISORDER, BIPOLAR TYPE SNOMED Code(s): 20831534 Comment: -Continue Olanzapine, mirtazapine, lithium, buspirone, gabapentin.
[2018-10-23] MEDS: Mometasone/Formoter 200/5 MDI INH SCH ×2 (15:27→19:43)
[2018-10-23] MEDS: Warfarin TAB(*) 5 MG PO SCH (16:18)
[2018-10-23] MEDS: Atorvastatin* 10 MG TAB PO SCH (16:18)
[2018-10-23] MEDS: Melatonin 3 MG TAB PO SCH (20:02)
[2018-10-23] MEDS: Mirtazapine TAB* 15 MG PO SCH (20:02)
[2018-10-23] MEDS: Nicotine Patch Removal NOTE PATCH OFF SCH (20:04)
[2018-10-24] MEDS: Albuterol/Ipratropium NEB.SOL* Albuterol 2.5 MG/Ipratropium 0.5 MG 3 ML INH SCH ×2 (01:18→06:03)
[2018-10-24] MEDS: Nicotine Inhaler* 10 MG AMP INH PRN ×4 (01:59→11:21)
[2018-10-24] MEDS: Mometasone/Formoter 200/5 MDI INH SCH ×2 (06:03→07:55)
[2018-10-24] MEDS: Nicotine PATCH 21 MG/24 HR* PATCH TRANSDERM SCH (07:29)
[2018-10-24] MEDS: Montelukast Sodium TAB* 10 MG PO SCH (08:24)
[2018-10-24] MEDS: Pantoprazole TAB * 40 MG TAB PO SCH (08:24)
[2018-10-24] MEDS: Isosorbide Mononitrate ER TAB* 30 MG PO SCH (08:24)
[2018-10-24] MEDS: busPIRone TAB* 10 MG PO SCH (08:24)
[2018-10-24] MEDS: Lithium Carbonate TAB* 300 MG PO SCH (08:24)
[2018-10-24] MEDS: OLANzapine TAB* 10 MG PO SCH (08:24)
[2018-10-24] MEDS: Metoprolol Tartrate TAB* 25 MG PO SCH (08:24)
[2018-10-24] MEDS: Gabapentin CAP(*) 400 MG PO SCH (08:24)
[2018-10-24] MEDS: amLODIPine TAB* 5 MG PO SCH (08:25)
[2018-10-24] MEDS: [UNRECOGNIZED DRUG - OTHER] INH SCH (08:42)
[2018-10-24] MEDS ORDERED: predniSONE TAB* 10 MG PO SCH (09:00)
[2018-10-24 12:43] VITALS: BP 115/43
--- NOTE | 2018-10-24 20:58 | DS ---
CC: Dr. Schrader * DISCHARGE SUMMARY: DATE OF ADMISSION: 10/21/18 DATE OF DISCHARGE: 10/24/18 PRIMARY CARE PROVIDER: Dr. Schrader. DISCHARGE DIAGNOSIS: Acute chronic obstructive pulmonary disease exacerbation, likely secondary to viral infection. SECONDARY DIAGNOSES: 1. Chronic obstructive pulmonary disease, on home O2 at night. 2. Hypertension. 3. Peripheral arterial disease. 4. Hyperlipidemia. 5. Coronary artery disease. 6. Schizoaffective disorder, bipolar type. 7. History of left leg deep venous thrombosis. PAST SURGICAL HISTORY: 1. Status post appendectomy. 2. Status post hernia repair x2. 3. Status post right lower extremity stenting. 4. Status post cholecystectomy. MEDICATION LIST: 1. Acetaminophen 650 mg p.o. q.4 hours p.r.n., pain or fever. 2. Albuterol 2.5 mg nebulized q.2 hours p.r.n. shortness of breath and wheezing. 3. Albuterol HFA 2 puffs q.4 hours p.r.n. shortness of breath and wheezing. 4. DuoNeb 1 nebulized q.4 hours. 5. Amlodipine 10 mg p.o. daily. 6. Atorvastatin 10 mg p.o. daily. 7. BuSpar 10 mg p.o. b.i.d. 8. Nexium 40 mg p.o. daily. 9. Breo Ellipta 200/25 one puff inhaled daily. 10. Gabapentin 400 mg p.o. b.i.d. 11. Hydroxyzine 50 mg p.o. q.i.d. as needed for anxiety. 12. Imdur 30 mg p.o. daily. 13. [place] 300 mg p.o. b.i.d. 14. Lorazepam 0.5 mg p.o. q.6 hours p.r.n. anxiety. 15. Melatonin 3 mg p.o. at bedtime. 16. Metoprolol tartrate 25 mg p.o. b.i.d. 17. Mirtazapine 15 mg p.o. at bedtime. 18. Montelukast 10 mg p.o. daily. 19. Nicotine inhaler 10 mg inhaled q.2 hours as needed for craving. 20. Nicotine patch 21 mg topically daily, remove at bedtime. 21. Olanzapine 10 mg p.o. daily. 22. Incruse Ellipta 62.5 mcg inhaled daily. 23. Warfarin 5 mg p.o. daily. New medication: Prednisone taper as follows: 40 mg p.o. daily for 5 days, 30 mg for 5 days, 20 mg for 5 days, 10 mg for 5 days, 5 mg for 5 days and stop. HOSPITAL COURSE: Ms. Camejo is a 62-year-old lady with a past medical history as stated above, who presented to the emergency room with complaints of shortness of breath. For more details about her presentation, I refer you to her history and physical. The patient was admitted on the impression of COPD exacerbation. Chest x-ray showed no active cardiopulmonary disease and the patient was continued on bronchodilators and started on steroids. At that point, there was no evidence for bacterial infection, so did not receive antibiotics. She also had complaints of intermittent sharp left-sided chest pain lasting for 2 seconds. Her EKG showed no acute ischemic injuries and was unchanged from September. Serial troponins were negative, and the patient had no further episodes of chest pain while in the hospital. She had progressive improvement of her symptoms, and on 10/24/18, she felt well enough to go home. The patient has a history of DVT and is already anticoagulated with warfarin. She had a CTA of the chest in September that showed no definite evidence of pulmonary embolus. At this point with this brief episode of chest pain, negative troponins, therapeutic INR, I do not think repeating a CT of the chest would be in the patient's best interest as my suspicion for PE is very low, as her shortness of breath is secondary to COPD exacerbation. The patient will follow up with Dr. Schrader as outpatient, and if her episodes of chest pain persists, he may consider pursuing further cardiac workup including stress test if he sees fit, but as described above, her EKG shows no acute ischemic changes and serial troponins were negative. PHYSICAL EXAMINATION: Vital Signs: Temperature 98.4, heart rate is 69, respiratory rate is 22, oxygen saturation is 96% on room air, blood pressure is 115/43. General: The patient is a pleasant lady, sitting up in bed, in no acute distress. CVS: Normal S1 and S2. Regular rate and rhythm. Chest: Breath sounds bilaterally diminished with no added sounds. Neuro: She is alert and oriented x3, able to move all 4 extremities. DIET: Heart healthy diet. ACTIVITY: As tolerated. DISPOSITION: To home. STATUS WHILE IN THE HOSPITAL: Inpatient. CONDITION: Fair. Please keep in mind this is a summarized version of this patient's hospital stay. If you need more information, please feel free to call me at [phone] or please obtain the full medical records. TIME SPENT: Approximately 45 minutes was spent to complete this discharge. [id number]/[facility] #: [id number] ANNITA
== END 2018-10-24 13:30 | disposition home or self-care (01) | DRG 191 ==
LOC: ED 11:09 → MEDTELE 14:41 → OBSVTOIN 10-23 16:04
PROVIDERS: ADMIT Internal Medicine; ATTEND Internal Medicine
DX: J44.1 Chronic obstructive pulmonary disease with (acute) exacerbation (principal); J96.11 Chronic respiratory failure with hypoxia; B34.9 Viral infection, unspecified; F25.0 Schizoaffective disorder, bipolar type; I25.10 Atherosclerotic heart disease of native coronary artery without angina pectoris; E78.00 Pure hypercholesterolemia, unspecified; I10 Essential (primary) hypertension; I73.9 Peripheral vascular disease, unspecified; K21.9 Gastro-esophageal reflux disease without esophagitis; F17.210 Nicotine dependence, cigarettes, uncomplicated; K58.9 Irritable bowel syndrome, unspecified; F41.9 Anxiety disorder, unspecified; F32.9 Major depressive disorder, single episode, unspecified; Z82.49 Family history of ischemic heart disease and other diseases of the circulatory system; Z81.8 Family history of other mental and behavioral disorders; Z86.718 Personal history of other venous thrombosis and embolism; Z99.81 Dependence on supplemental oxygen; Z88.8 Allergy status to other drugs, medicaments and biological substances; Z88.1 Allergy status to other antibiotic agents; Z88.0 Allergy status to penicillin; Z72.89 Other problems related to lifestyle; Z90.89 Acquired absence of other organs; Z90.49 Acquired absence of other specified parts of digestive tract; Z83.6 Family history of other diseases of the respiratory system; Z79.01 Long term (current) use of anticoagulants
CPT/HCPCS: 36415; 71045; 80048; 80053; 83605; 84484; 85025; 85379; 85610; 85730; 93005; 94640; 99284; A9270-GY; G0378; J2930; J7512

== ENCOUNTER 2018-11-15 08:57 | Inpatient (IN) | payer MEDICARE, MEDICAID ==
--- NOTE | 2018-11-15 09:34 | ED ---
Shortness of Breath - HPI Summary HPI Summary: Pt is a 63 y/o female brought in by EMS who presents to the ED c/o SOB since 2: 00 this morning. She used several at home nebulizer treatments without relief. Pt c/o SOB described as her normal presentation of COPD exacerbation, and fatigue. She notes her LLE edema is chronic due to a prior DVT. Pt was on Prednisone several weeks ago, and is prescribed a rescue inhaler. She is on 2L O2 NC at home. Pt was given a Duoneb treatment and 10 mg dexamethasone by EMS. She denies any recent illness. PMHx COPD, asthma, PNA, CAD, DVT, HTN, HLD. She smokes 1 ppd. - History of Current Complaint Chief Complaint: EDShortnessOfBreath Hx Obtained From: Patient, EMS Onset/Duration: Gradual Onset, Lasting Hours - 2:00 this morning, Still Present Timing: Constant Dyspnea At: Rest Associated Signs & Symptoms: Edema - LLE Related History: Similar Episode - COPD exacerbation - Allergy/Home Medications Allergies/Adverse Reactions: Allergies Allergy/AdvReac Type Severity Reaction Status Date / Time bupropion [From Wellbutrin] Allergy Agitation Verified 11/15/18 09:05 Cephalosporins Allergy Agitation Verified 11/15/18 09:05 chlorproethazine Allergy Agitation Verified 11/15/18 09:05 erythromycin base Allergy Diarrhea Verified 11/15/18 09:05 Penicillins Allergy Hives Verified 11/15/18 09:05 tobramycin Allergy Diarrhea Verified 11/15/18 09:05 PMH/Surg Hx/FS Hx/Imm Hx Endocrine/Hematology History: Reports: Hx Anticoagulant Therapy, Hx Anemia, Other Endocrine/Hematological Disorders - L leg DVT Denies: Hx Diabetes, Hx Systemic Lupus Erythematosus, Hx Thyroid Disease Cardiovascular History: Reports: Hx Angina, Hx Coronary Artery Disease, Hx Deep Vein Thrombosis, Hx Hypercholesterolemia, Hx Hypertension, Hx Peripheral Vascular Disease, Other Cardiovascular Problems/Disorders - PERIPHERAL ARTERY DISEASE; CAD; DVT Denies: Hx Congestive Heart Failure, Hx Pacemaker/ICD Respiratory History: Reports: Hx Asthma, Hx Chronic Bronchitis, Hx Chronic Obstructive Pulmonary Disease (COPD) - 2L at home, Hx Pneumonia, Hx Seasonal Allergies, Other Respiratory Problems/Disorders - PNA Denies: Hx Cystic Fibrosis, Hx Lung Cancer, Hx Pleural Effusion, Hx Pulmonary Edema, Hx Pulmonary Embolism, Hx Sleep Apnea GI History: Reports: Hx Gall Bladder Disease - removed, Hx Gastroesophageal Reflux Disease, Hx Irritable Bowel, Other GI Disorders - hernia repair X 2 Denies: Hx Cirrhosis, Hx Crohn's Disease, Hx Diverticulosis History: Denies: Hx Dialysis, Hx Renal Disease Musculoskeletal History: Denies: Hx Arthritis, Hx Rheumatoid Arthritis, Hx Osteoporosis Sensory History: Denies: Hx Contacts or Glasses, Hx Glaucoma, Hx Deafness, Hx Hearing Aid, Hx Hearing Problem Opthamlomology History: Denies: Hx Contacts or Glasses, Hx Glaucoma Neurological History: Denies: Hx Headaches, Hx Seizures, Hx Transient Ischemic Attacks (TIA) Psychiatric History: Reports: Hx Anxiety, Hx Depression, Hx Inpatient Treatment , Hx Community Mental Health Tx, Hx Schizophrenia, Hx Bipolar Disorder, Hx Suicide Attempt Denies: Hx Eating Disorder, Hx Panic Disorder, Hx of Violent Episodes Against Others - Cancer History Hx Chemotherapy: No - Surgical History Surgery Procedure, Year, and Place: bilat thumb repairs, hernia repairs X 2, cholecystectomy, appendectomy Hx Anesthesia Reactions: No - Immunization History Date of Tetanus Vaccine: UTD Date of Influenza Vaccine: 06/2018 Immunizations Up to Date: Yes Infectious Disease History: No Infectious Disease History: Denies: Hx Clostridium Difficile, Hx Hepatitis, Hx Human Immunodeficiency Virus (HIV), Hx of Known/Suspected MRSA, Hx Shingles, Hx Tuberculosis, Traveled Outside the [place] in Last 30 Days - Family History Known Family History: Positive: Cardiac Disease - [place], Other - schizophrenia, anxiety Negative: Hypertension, Diabetes Family History: Negative HTN/DM per EMR - Social History Alcohol Use: Rare Hx Substance Use: No Substance Use Type: Reports: None Hx Tobacco Use: Yes Smoking Status (MU): Current Every Day Smoker Type: Cigarettes Amount Used/How Often: 1 PPD Have You Smoked in the Last Year: Yes Review of Systems Positive: Fatigue Positive: Shortness Of Breath Positive: Edema - LLE chronic All Other Systems Reviewed And Are Negative: Yes Physical Exam - Summary Physical Exam Summary: Appearance: The patient is well-nourished in no acute distress and in no acute pain. Skin: The skin is warm and dry and skin color reflects adequate perfusion. HEENT: The head is normocephalic and atraumatic. The pupils are equal and reactive. The conjunctivae are clear and without drainage. Nares are patent and without drainage. Mouth reveals moist mucous membranes and the throat is without erythema and exudate. The external ears are intact. The ear canals are patent and without drainage. The tympanic membranes are intact. Neck: The neck is supple with full range of motion and non-tender. There are no carotid bruits. There is no neck vein distension. Respiratory: Chest is non-tender. Rreath sounds are symmetrical and equal. Rhonchi in all lung [place], worse in the left base. Mild expiratory wheezes. Cardiovascular: Heart is regular rate and rhythm. There is no murmur or rub auscultated. There is mild LLE pitting edema. Pulses are symmetrical and equal. Abdomen: The abdomen is soft and non-tender. There are normal bowel sounds heard in all four quadrants and there is no organomegaly palpated. Musculoskeletal: There is no back tenderness noted. Extremities are non-tender with full range of motion. There is good capillary refill. There is mild LLE pitting edema. No calf tenderness elicited. Neurological: Patient is alert and oriented to person, place and time. The patient has symmetrical motor strength in all four extremities. Cranial nerves are grossly intact. Deep tendon reflexes are symmetrical and equal in all four extremities. Psychiatric: The patient has an appropriate affect and does not exhibit any anxiety or depression. Triage Information Reviewed: Yes Vital Signs On Initial Exam: Initial Vitals Temp Pulse Resp BP Pulse Ox 99 F 94 32 144/66 100 11/15/18 09:00 11/15/18 09:00 11/15/18 09:00 11/15/18 09:00 11/15/18 09:00 Vital Signs Reviewed: Yes Diagnostics - Vital Signs Vital Signs Temp Pulse Resp BP Pulse Ox 11/15/18 09:00 99 F 94 32 144/66 100 - Laboratory Result Diagrams: 11/15/18 09:50 11/15/18 09:55 Lab Statement: Any lab studies that have been ordered have been reviewed, and results considered in the medical decision making process. - Radiology CXR Radiology Interpretation Completed By: Radiologist Summary of Radiographic Findings: NO ACTIVE CARDIOPULMONARY DISEASE IS NOTED. ED physician reviewed radiology report. - EKG 9:44 Cardiac Rate: NL - 86 bpm EKG Rhythm: Sinus Rhythm ST Segment: Normal Ectopy: None Summary of EKG Findings: No STEMI, non-specific changes Course/Dx - Course Course Of Treatment: Ms. Camejo presented with an exacerbation of her underlying COPD. It just started during the night and she hasn't had any symptomatology of upper respiratory tract infection. She was treated recently for that. She was given Solu-Medrol and a DuoNeb on the way in. Then used 3 of her duo nebs since 2:30 this morning. She was given an additional DuoNeb here while chest x-ray was obtained and labs. She is too sick to go home but not critically ill. The hospitalist service was contacted and agreed to admit her. - Diagnoses Provider Diagnoses: COPD exacerbation - Physician Notifications Discussed Care of Patient With: Moe East Time Discussed With Above Provider: 11:19 Instructed by Provider To: Admit As Inpatient Discharge - Sign-Out/Discharge Documenting (check all that apply): Patient Departure - Admit Patient Received Moderate/Deep Sedation with Procedure: No - Discharge Plan Condition: Stable Disposition: ADMITTED TO [facility] - Billing Disposition and Condition Condition: STABLE Disposition: Admitted to [facility] - Attestation Statements Document Initiated by Pradeepe: Yes Documenting Scribe: Sharita Long Provider For Whom [facility] is Documenting (Include Credential): Elliott Tang MD Scribe Attestation: ISharita, scribed for Elliott Tang MD on 11/15/18 at 1438. Scribe Documentation Reviewed: Yes Provider Attestation: The documentation as recorded by the Sharita kiran accurately reflects the service I personally performed and the decisions made by me, Elliott Tang MD Status of Scribe Document: Viewed
[2018-11-15] MEDS ORDERED: Albuterol/Ipratropium NEB.SOL* Albuterol 2.5 MG/Ipratropium 0.5 MG 3 ML INH ONE (09:40)
[2018-11-15 10:06] LABS: ABS Basophils 0 10^3/ul (0-0.2); ABS Eosinophils 0.3 10^3/ul (0-0.6); ABS Lymphocytes 0.7 10^3/ul (1.0-4.8); ABS Monocytes 0.3 10^3/ul (0-0.8); ABS Nucleated RBC 0 10^3/ul; Eosinophil % 4.5 %; Hematocrit 33 % (35-47); Hemoglobin 10.6 g/dl (12.0-16.0); Lymphocyte % 11.6 %; Mean Corpuscular HGB Conc 32 g/dl (31-36); Mean Corpuscular Hemoglobin 28 pg (27-31); Mean Corpuscular Volume 85 fL (80-97); Mean Platelet Volume 7.8 fL (7.4-10.4); Nucleated Red Blood Cells % 0.1; Platelet Count 141 10^3/ul (150-450); Red Blood Count 3.87 10^6/ul (4.00-5.40); Red Cell Distribution Width 18 % (10.5-15); White Blood Count 6.4 10^3/ul (3.5-10.8)
[2018-11-15 10:15] LABS: INR 1.92 (0.77-1.02)
[2018-11-15 10:34] LABS: Albumin 3.6 g/dL (3.2-5.2); Albumin/Globulin Ratio 1.5 (1-3); BUN/Creatinine Ratio 18.2 (8-20); C Reactive Protein 20.62 mg/L (<8.01); Calcium 9.2 mg/dL (8.6-10.3); EGFR African American 92.2 (>60); EGFR Non-African American 76.2 (>60); Globulin 2.4 g/dL (2-4); Potassium 4.1 mmol/L (3.5-5.0); Total Bilirubin 0.4 mg/dL (0.2-1.0)
[2018-11-15] MEDS ORDERED: Acetaminophen TAB* 325 MG PO PRN (11:54)
[2018-11-15] MEDS ORDERED: Albuterol 2.5 MG/3 ML NEB.SOL* (0.083%) INH PRN (11:54)
[2018-11-15] MEDS ORDERED: Benzonatate CAP* 100 MG PO PRN (11:54)
[2018-11-15] MEDS ORDERED: Ondansetron INJ* 2 MG/ML VIAL IV PRN (11:54)
[2018-11-15] MEDS ORDERED: LORazepam TAB(*) 0.5 MG PO PRN (11:57)
[2018-11-15] MEDS ORDERED: hydrOXYzine HCL TAB* 50 MG PO PRN (11:57)
[2018-11-15] MEDS: Albuterol/Ipratropium NEB.SOL* Albuterol 2.5 MG/Ipratropium 0.5 MG 3 ML INH SCH ×4 (12:00→22:58)
[2018-11-15] MEDS ORDERED: Mouth Piece, Nicotine* 1 EACH CARTRIDGE INH PRN (12:11)
[2018-11-15] MEDS: DOXYcycline IV* 100 MG in NS 0.9% 250 ML* 250 ML IVPB SCH ×2 (12:18→23:59)
--- NOTE | 2018-11-15 14:02 | HP ---
CC: Dr. Tom Schrader * ADMISSION HISTORY AND PHYSICAL: DATE OF ADMISSION: 11/15/18 PRIMARY CARE PROVIDER: Dr. Tom Schrader. MY ATTENDING WHILE IN THE HOSPITAL: Dr. East. * (DICTATED BY FIONA OCHOA) CHIEF COMPLAINT: Shortness of breath x10 hours. HISTORY OF PRESENT ILLNESS: Ms. Camejo is a 63-year-old female with past medical history significant for COPD, on 2 L oxygen at night; hypertension; CAD ; bipolar disorder; as well as a history of DVT, on chronic Coumadin therapy, who presents to the emergency department with a severe increase in shortness of breath that woke her up from sleep at approximately 2 a.m. and kept her from sleeping at that time. She had very significantly limited exercise tolerance, being unable to even ambulate a few feet, increased cough with sputum production and wheezing, unresponsive to her inhalers prescribed at home. The patient was recently admitted to this institution with a COPD exacerbation, believed to be due to a viral infection in October 2018, being discharged on . The patient at that time was on a steroid taper, which she states she took, but she is unable to provide the details of it, which was scheduled to have stopped 2 days ago. The patient is unable to provide the details again and this very possibly was not adhered to strictly. The patient continues to smoke up to half a pack a day, but states she has been coming down and has a previous success with nicotine inhaler and nicotine patch. She states she is willing to attempt to try to quit again. The patient denies chest pain, dizziness on standing, pain in her legs, increased swelling in her legs, nausea , vomiting, abdominal pain, diarrhea, or dysuria. The patient has not had any changes in her medications since she left the hospital. The patient has been taking all of her scheduled inhalers at home. The patient was significantly tachypneic, was given IV steroids and inhaler in the ambulance and is currently needing 2 L of oxygen to keep her oxygen saturation above 98%. Due to concern for recurrent COPD exacerbation, we were asked to evaluate the patient for admission to the hospital. PAST MEDICAL HISTORY: COPD with chronic hypoxic respiratory failure, on 2 L of oxygen at night; hypertension; peripheral arterial disease, status post stenting ; hyperlipidemia; coronary artery disease; schizoaffective disorder, bipolar type; anxiety; depression; history of DVT, on chronic Coumadin therapy. PAST SURGICAL HISTORY: Appendectomy, hernia repair x2, right lower extremity stent, cholecystectomy. MEDICATIONS: Per the patient's most recent discharge summary, which she states is accurate: 1. Albuterol inhaler 2 puffs inhalation q.4 hours as needed. 2. Lipitor 10 mg p.o. nightly. 3. Nexium 40 mg p.o. daily. 4. [place] carbonate 300 mg p.o. b.i.d. 5. Metoprolol tartrate 25 mg p.o. b.i.d. 6. Singulair 10 mg p.o. daily. 7. Incruse Ellipta 62.5 mcg inhalation daily. 8. Breo Ellipta 1 puff inhalation daily. 9. Albuterol nebulizer 2.5 mg inhalation q.2 hours as needed. 10. Amlodipine 10 mg p.o. daily. 11. Olanzapine 10 mg p.o. daily. 12. Imdur 30 mg p.o. daily. 13. Tylenol 650 mg q.4 hours as needed. 14. Gabapentin 400 mg p.o. b.i.d. 15. Mirtazapine 15 mg p.o. at bedtime. 16. DuoNeb 1 nebulizer inhalation q.4 hours as needed. 17. Buspirone 10 mg p.o. b.i.d. 18. Hydroxyzine 50 mg p.o. q.i.d. as needed. 19. Melatonin 3 mg p.o. at bedtime. 20. Warfarin 5 mg p.o. daily. 21. Lorazepam 0.5 mg p.o. q.3 hours as needed. 22. Nicotine patch 21 mg transdermal daily. 23. Nicotine inhaler 10 mg q.2 hours as needed. ALLERGIES: BUPROPION, CEPHALOSPORINS, PENICILLINS, CHLORPROETHAZINE, ERYTHROMYCIN, TOBRAMYCIN. FAMILY HISTORY: The patient's mother in her 70s of COPD. Father in his 70s of an [place]. The patient has 7 siblings, whose past medical history she is not aware of. SOCIAL HISTORY: The patient has smoked for over 40 years, is down to less than half a pack a day and is trying to quit with the help of nicotine inhalers and patches with limited success. The patient drinks alcohol rarely. Never used illicit drugs. 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 The patient has never been and has only one child, her son, Maikel Camejo, who will be her surrogate decision maker. REVIEW OF SYSTEMS: A 14-point review of systems was reviewed and is negative except as above in the HPI. PHYSICAL EXAMINATION GENERAL: The patient is a 63-year-old female who appears much older than stated age and sitting in the bed with significantly increased work and rate of breathing. VITAL SIGNS: Temperature 99, pulse rate 90, respiratory rate 24, oxygen saturation 96% on 2 L, blood pressure 144/66. HEENT: Head: Normocephalic, atraumatic. Sclerae anicteric. No conjunctival injection. Nasal mucosa moist. Oral mucosa moist. No pharyngeal erythema, discharge, or exudate. NECK: Supple, nontender. No lymphadenopathy. No carotid bruits auscultated. No JVD. RESPIRATORY: Expiratory wheezes and rhonchi throughout all lung lobes. Symmetrical chest expansion and effort. CARDIAC: Regular rate and rhythm. No clicks, murmurs, gallops, or rubs. Pulses are 2+ in the bilateral dorsalis pedis, posterior tibialis, and radial areas. Trace bilateral lower extremity edema noted. ABDOMEN: Soft, nontender, nondistended. Bowel sounds present and normoactive in all 4 quadrants. No hepatosplenomegaly. No abdominal bruits auscultated. No hepatojugular reflux. GENITOURINARY: No suprapubic or CVA tenderness. NEUROLOGIC: Cranial nerves II through XII intact. No focal deficits. Alert and oriented x3. PSYCHIATRIC: Somewhat withdrawn, otherwise pleasant and cooperative. SKIN: Clean, dry, and intact. No rash. DIAGNOSTIC STUDIES/LAB DATA: White blood cell count 6.4, hemoglobin 10.6, hematocrit 33, RDW 18, platelet count 141. INR 1.92. Sodium 140, potassium 4.1 , chloride 106, carbon dioxide 31, anion gap 3, BUN 14, creatinine 0.77, glucose 106, lactic acid 0.5, calcium 9.2. Bilirubin 0.4, AST 14, ALT 16, alkaline phosphatase 74. Troponin I 0.00. CRP 20.62. Protein 6.0, albumin 3.6 , globulin 2.4. Studies done while in the hospital: Electrocardiogram shows normal sinus rhythm. No ischemic changes. Possible left atrial enlargement. No other blocks or hypertrophy. Normal axis. QTc of 436, rate of 86. Chest x-ray read as no active cardiopulmonary disease. ASSESSMENT AND PLAN: Impression: Ms. Camejo is a 63-year-old female with a past medical history significant for chronic obstructive pulmonary disease with numerous exacerbations over the past several years, who has ongoing smoking as well as chronic obstructive pulmonary disease, hypertension, peripheral arterial disease, who presents to the emergency department with shortness of breath with what appears to be another recurrent chronic obstructive pulmonary disease exacerbation. The patient claims of taking her steroid taper as scheduled from her last hospitalization and it appears that her exacerbation coincided almost entirely with the cessation of this. The patient admitted to the hospital for recurrent management of chronic obstructive pulmonary disease exacerbation. 1. Acute on chronic hypoxic respiratory failure. The patient is currently needing 2 L of oxygen. The patient normally wears only oxygen at night. The patient is only slightly subtherapeutic on her Coumadin and has no chest pain. The patient is unlikely to have a pulmonary embolism. No further imaging is required at this time. The patient will be started on IV steroids, inhalers scheduled initially. The patient will be continued on her home long-acting schedule. The patient will be started on doxycycline for its anti-inflammatory and antimicrobial properties given the patient's increase in cough and wheezing. The patient will likely need a long-term steroid taper as before. Given the patient's need for chronic steroid therapy, other agents to help reduce the frequency of her chronic obstructive pulmonary disease exacerbations might be indicated in this case including phosphodiesterase inhibitors, chronic antibiotics or other oral bronchodilators. The patient has never seen a usability specialist, though she did not show up to her pulmonology appointment with Dr. Brink from 2017. Smoking cessation is also of utmost importance. Additional psychological and pharmacologic therapies for smoking cessation should be considered. The patient states she is trying to cut down and nicotine replacement should be initiated while in the hospital and continued outpatient, though this was done by the patient's last admission as well. 2. Hypertension. The patient is currently normotensive. Continue the patient' s home amlodipine, Imdur, and metoprolol. 3. Peripheral arterial disease. Continue the patient's statin. The patient is currently asymptomatic and has no symptoms of claudication. 4. Coronary artery disease. Continue the patient's statin as above. The patient is not on aspirin for unclear reasons. This should be deferred to the patient's outpatient primary care provider. 5. Schizoaffective disorder, bipolar type. Continue the patient's mood stabilization with lithium carbonate, gabapentin, and olanzapine. The patient does not appear to be manic or depressed at this time. The patient does have a flat affect. 6. Anxiety and depression. Continue the patient's mirtazapine, lorazepam, and hydroxyzine as needed. 7. History of DVT. Continue the patient's warfarin. She is slightly subtherapeutic. We will monitor INR daily and adjust warfarin as needed while in the hospital. The patient should follow up with her primary care provider outpatient for this. 8. FEN. The patient will have a heart healthy diet without caffeine. The patient does not need fluids; she is normotensive. 9. Disposition. The patient admitted inpatient with estimated length of stay greater than 2 midnights. TIME SPENT: Approximately 60 minutes spent on the admission of this patient, 30 of which was spent [id number] with the patient obtaining my history and physical and discussing treatment plan. This plan was discussed with my attending, Dr. East, and he is in agreement. FIONA OCHOA [id number]/[facility] #: [id number] ANNITA
[2018-11-15] MEDS: methylPREDNISolone 125 MG* 2 ML VIAL IV SCH ×2 (14:33→23:55)
[2018-11-15] MEDS: guaiFENesin ER TAB 600 MG PO SCH ×2 (14:33→19:41)
[2018-11-15] MEDS: Warfarin TAB(*) 5 MG PO SCH (16:29)
[2018-11-15] MEDS: Atorvastatin* 10 MG TAB PO SCH (16:29)
[2018-11-15 17:58] LABS: Urine Appearance Clear; Urine Bilirubin Negative (Negative); Urine Blood Negative (Negative); Urine Color Yellow; Urine Glucose 3+(>=500 mg/dL) (Negative); Urine Ketones Negative (Negative); Urine Nitrite Negative (Negative); Urine Protein Negative (Negative); Urine Specific Gravity 1.009 (1.010-1.030); Urine Urobilinogen Negative (Negative)
[2018-11-15] MEDS: Mirtazapine TAB* 15 MG PO SCH (19:41)
[2018-11-15] MEDS: Metoprolol Tartrate TAB* 25 MG PO SCH (19:42)
[2018-11-15] MEDS: busPIRone TAB* 10 MG PO SCH (19:42)
[2018-11-15] MEDS: Gabapentin CAP(*) 400 MG PO SCH (19:42)
[2018-11-15] MEDS: Lithium Carbonate TAB* 300 MG PO SCH (19:42)
[2018-11-15] MEDS ORDERED: Melatonin 3 MG TAB PO SCH (21:00)
[2018-11-16] MEDS: Nicotine Inhaler* 10 MG AMP INH PRN ×5 (01:04→20:00)
[2018-11-16] MEDS: Albuterol/Ipratropium NEB.SOL* Albuterol 2.5 MG/Ipratropium 0.5 MG 3 ML INH SCH ×4 (03:12→15:13)
[2018-11-16] MEDS: NFT: Fluticasone/Vilanterol MDI(NF) 200/25 MDI INH SCH (07:12)
[2018-11-16] MEDS: NFT: Umeclidinium 62.5 MDI(NF) MDI INH SCH (07:13)
[2018-11-16 07:21] LABS: ABS Basophils 0 10^3/ul (0-0.2); ABS Eosinophils 0 10^3/ul (0-0.6); ABS Lymphocytes 0.5 10^3/ul (1.0-4.8); ABS Monocytes 0.1 10^3/ul (0-0.8); ABS Neutrophils 5.4 10^3/ul (1.5-7.7); ABS Nucleated RBC 0 10^3/ul; Eosinophil % 0 %; Hematocrit 37 % (35-47); Hemoglobin 11.6 g/dl (12.0-16.0); Lymphocyte % 8.2 %; Mean Corpuscular HGB Conc 32 g/dl (31-36); Mean Corpuscular Hemoglobin 27 pg (27-31); Mean Corpuscular Volume 86 fL (80-97); Mean Platelet Volume 8.4 fL (7.4-10.4); Nucleated Red Blood Cells % 0; Platelet Count 191 10^3/ul (150-450); Red Blood Count 4.28 10^6/ul (4.00-5.40); Red Cell Distribution Width 17 % (10.5-15)
[2018-11-16 07:33] LABS: INR 2.01 (0.77-1.02)
[2018-11-16] MEDS: OLANzapine TAB* 10 MG PO SCH (08:14)
[2018-11-16] MEDS: amLODIPine TAB* 5 MG PO SCH (08:15)
[2018-11-16] MEDS: guaiFENesin ER TAB 600 MG PO SCH ×2 (08:15→19:58)
[2018-11-16] MEDS: Montelukast Sodium TAB* 10 MG PO SCH (08:15)
[2018-11-16] MEDS: Lithium Carbonate TAB* 300 MG PO SCH ×2 (08:15→20:00)
[2018-11-16] MEDS: Metoprolol Tartrate TAB* 25 MG PO SCH (08:15)
[2018-11-16] MEDS: Isosorbide Mononitrate ER TAB* 30 MG PO SCH (08:15)
[2018-11-16] MEDS: Pantoprazole TAB * 40 MG TAB PO SCH (08:15)
[2018-11-16] MEDS: busPIRone TAB* 10 MG PO SCH ×2 (08:15→19:58)
[2018-11-16] MEDS: Gabapentin CAP(*) 400 MG PO SCH ×2 (08:15→19:58)
[2018-11-16] MEDS: Nicotine PATCH 21 MG/24 HR* PATCH TRANSDERM SCH (08:16)
[2018-11-16 08:19] LABS: BUN/Creatinine Ratio 26.6 (8-20); Calcium 9.9 mg/dL (8.6-10.3); EGFR African American 89.5 (>60); Magnesium 1.8 mg/dL (1.9-2.7); Potassium 4.5 mmol/L (3.5-5.0)
[2018-11-16] MEDS: methylPREDNISolone 125 MG* 2 ML VIAL IV SCH (11:07)
[2018-11-16] MEDS: DOXYcycline IV* 100 MG in NS 0.9% 250 ML* 250 ML IVPB SCH (12:09)
[2018-11-16] MEDS ORDERED: Magnesium Sulfate 2 GM IV* 2 GM/50 ML BAG IVPB ONE (13:00)
[2018-11-16] MEDS: Warfarin TAB(*) 5 MG PO SCH (16:40)
[2018-11-16] MEDS: Atorvastatin* 10 MG TAB PO SCH (16:40)
--- NOTE | 2018-11-16 17:24 | PN ---
Subjective Interval History: Improvement in shortness of breath and cough but still SOB when off oxygen, even at rest. Objective Active Medications: Acetaminophen (Tylenol Tab*) 650 mg PO Q6H PRN PRN Reason: FEVER/PAIN Albuterol (Ventolin 2.5 Mg/3 Ml Neb.Tania*) 2.5 mg INH Q2H PRN PRN Reason: SOB/WHEEZING Amlodipine Besylate (Norvasc Tab*) 10 mg PO DAILY [facility] Last Admin: 11/16/18 08:15 Dose: 10 mg Atorvastatin Calcium (Lipitor*) 10 mg PO 1700 [facility] Last Admin: 11/16/18 16:40 Dose: 10 mg Buspirone HCl (Buspar Tab*) 10 mg PO BID [facility] Last Admin: 11/16/18 08:15 Dose: 10 mg Device (Nicotine Mouth Piece*) 1 each INH .USE W/ CARTRIDGE PRN PRN Reason: WITHDRAWAL - NICOTINE Last Admin: 11/16/18 01:02 Dose: 1 each Fluticasone/Vilanterol (Breo Ellipta Mdi 200/25(Nf)) 1 puff INH DAILY [facility] Last Admin: 11/16/18 07:12 Dose: Not Given Gabapentin (Neurontin Cap(*)) 400 mg PO BID [facility] Last Admin: 11/16/18 08:15 Dose: 400 mg Guaifenesin (Mucinex*) 1,200 mg PO BID [facility] Last Admin: 11/16/18 08:15 Dose: 1,200 mg Hydroxyzine HCl (Atarax Tab*) 50 mg PO QID PRN PRN Reason: ANXIETY Doxycycline Hyclate 100 mg/ (Sodium Chloride) 250 mls @ 250 mls/hr IVPB Q12H [facility] Last Admin: 11/16/18 12:09 Dose: 250 mls/hr Isosorbide Mononitrate (Imdur Er Tab*) 30 mg PO DAILY [facility] Last Admin: 11/16/18 08:15 Dose: 30 mg [place] Carbonate ([place] Carbonate Tab*) 300 mg PO BID [facility] Last Admin: 11/16/18 08:15 Dose: 300 mg Lorazepam (Ativan Tab(*)) 0.5 mg PO Q6H PRN PRN Reason: ANXIETY Melatonin (Melatonin) 3 mg PO BEDTIME [facility]; Protocol Methylprednisolone Sodium Succinate (Solu-Medrol 125mg *) 60 mg IV Q12H [facility] Stop: 11/16/18 23:59 Last Admin: 11/16/18 11:07 Dose: 60 mg Metoprolol Succinate (Toprol Xl Tab*) 50 mg PO BEDTIME [facility] Mirtazapine (Remeron Tab*) 15 mg PO BEDTIME [facility] Last Admin: 11/15/18 19:41 Dose: 15 mg Montelukast Sodium (Singulair Tab*) 10 mg PO DAILY [facility] Last Admin: 11/16/18 08:15 Dose: 10 mg Nicotine (Nicotine Inhaler*) 10 mg INH Q2H PRN PRN Reason: CRAVING Last Admin: 11/16/18 14:10 Dose: 10 mg Nicotine (Nicotine Patch 21 Mg/24 Hr*) 1 patch TRANSDERM DAILY [facility] Last Admin: 11/16/18 08:16 Dose: Not Given Olanzapine (Zyprexa Tab*) 10 mg PO DAILY [facility] Last Admin: 11/16/18 08:14 Dose: 10 mg Pantoprazole Sodium (Protonix Tab*) 40 mg PO DAILY [facility]; Protocol Last Admin: 11/16/18 08:15 Dose: 40 mg Pharmacy Profile Note (Nicotine Patch Removal Note*) 1 note PATCH OFF 2100 [facility] Prednisone (Deltasone Tab*) 40 mg PO DAILY [facility] Umeclidinium [place] (Incruse Ellipta Mdi (Nf)) 1 inh INH DAILY [facility] Last Admin: 11/16/18 07:13 Dose: Not Given Warfarin Sodium (Coumadin Tab(*)) 5 mg PO DAILY@1700 [facility]; Protocol Last Admin: 11/16/18 16:40 Dose: 5 mg Vital Signs - 8 hr 11/16/18 11/16/18 11/16/18 11:00 11:12 11:55 Temperature 97.2 F Pulse Rate 85 71 Respiratory 17 22 24 Rate Blood Pressure 138/42 (mmHg) O2 Sat by Pulse 98 99 Oximetry 11/16/18 15:13 Temperature Pulse Rate 86 Respiratory 17 Rate Blood Pressure (mmHg) O2 Sat by Pulse 97 Oximetry Oxygen Devices in Use Now: Nasal Cannula Appearance: well appearing, sitting on side of bed, speaking in full sentences Ears/Nose/Mouth/Throat: Clear Oropharnyx, Mucous Membranes Moist Neck: No Thyroid Enlargement, Masses Respiratory: - - CTAB, no wheezes, no accessory muscle use Cardiovascular: RRR Abdominal: NL Sounds; No Tenderness; No Distention Lymphatic: No Cervical Adenopathy Extremities: No Edema Result Diagrams: 11/16/18 06:52 11/16/18 06:52 Microbiology and Other Data: Microbiology 11/15/18 09:50 Aerobic Blood Culture - Preliminary Blood Venous No Growth Day 1 Anaerobic Blood Culture - Preliminary No Growth Day 1 11/15/18 09:55 Aerobic Blood Culture - Preliminary Blood Venous No Growth Day 1 Anaerobic Blood Culture - Preliminary No Growth Day 1 11/15/18 16:15 Nasal Screen MRSA (PCR) - Final Nasal Mrsa Not Detected Assess/Plan/Problems-Billing 63W with COPD on 2L home oxygen nightly, active tobacco use, CAD, HTN, DVT on warfarin, presenting with acute SOB, worsened ET, and increased productive cough. She is without evidence for infection, and had quick improvement in symptoms with steroids. Likely that exacerbation is from continued smoking and possible nonadherence to home medications. - Patient Problems (1) COPD exacerbation Comment: Tobacco cessation is necessary. - switch to PO steroids tomorrow AM - cont fluticasone/vilanterol inh, umeclidinium - cont duonebs prn - continue montelukast - cont doxycycline - may need chronic abx for anti-inflammatory component (2) Tobacco abuse Comment: Pt reports she previously tried Welbutrin and had a seizure. Unk if tried Chantix. Pt aware of connection between disease/hospitalizations and smoking. States she didn't want to take NRT because she felt like she was "addicted" to it. She does agree that it's safer to continuously need NRT rather than to continuously smoke cigarettes. - cont NRT - motivational interviewing (3) HTN (hypertension) Comment: - continue home Imdur, metoprolol (switched to long acting), amlodipine (4) Schizoaffective disorder, bipolar type Comment: Unclear exactly what patholgies pt has. Documentation with axis II disorders, as well. -Continue home olanzapine, mirtazapine, lithium, buspirone, gabapentin, hydroxyzine, AND lorazepam (5) DVT (deep venous thrombosis) Comment: Therapeutic INR. Cont warfarin 5mg. (6) Hypomagnesemia Comment: replete
[2018-11-16] MEDS: Mirtazapine TAB* 15 MG PO SCH (19:58)
[2018-11-16] MEDS ORDERED: Melatonin 3 MG TAB PO SCH (21:00)
[2018-11-16] MEDS ORDERED: Metoprolol Succinate XL TAB* 50 MG PO SCH (21:00)
[2018-11-16] MEDS ORDERED: Nicotine Patch Removal NOTE PATCH OFF SCH (21:00)
[2018-11-17] MEDS: DOXYcycline IV* 100 MG in NS 0.9% 250 ML* 250 ML IVPB SCH ×2 (00:44→12:21)
[2018-11-17] MEDS: Nicotine Inhaler* 10 MG AMP INH PRN ×3 (00:51→12:21)
[2018-11-17 06:48] LABS: INR 2.29 (0.77-1.02)
[2018-11-17] MEDS: NFT: Fluticasone/Vilanterol MDI(NF) 200/25 MDI INH SCH (07:11)
[2018-11-17] MEDS: NFT: Umeclidinium 62.5 MDI(NF) MDI INH SCH (07:11)
[2018-11-17] MEDS: OLANzapine TAB* 10 MG PO SCH (08:16)
[2018-11-17] MEDS: Isosorbide Mononitrate ER TAB* 30 MG PO SCH (08:17)
[2018-11-17] MEDS: busPIRone TAB* 10 MG PO SCH (08:17)
[2018-11-17] MEDS: guaiFENesin ER TAB 600 MG PO SCH (08:17)
[2018-11-17] MEDS: Gabapentin CAP(*) 400 MG PO SCH (08:17)
[2018-11-17] MEDS: Pantoprazole TAB * 40 MG TAB PO SCH (08:17)
[2018-11-17] MEDS: Lithium Carbonate TAB* 300 MG PO SCH (08:18)
[2018-11-17] MEDS: Nicotine PATCH 21 MG/24 HR* PATCH TRANSDERM SCH (08:18)
[2018-11-17] MEDS: amLODIPine TAB* 5 MG PO SCH (08:18)
[2018-11-17] MEDS: Montelukast Sodium TAB* 10 MG PO SCH (08:18)
[2018-11-17] MEDS ORDERED: predniSONE TAB* 20 MG PO SCH (09:00)
--- NOTE | 2018-11-17 10:12 | PN ---
Subjective Date of Service: 11/17/18 Interval History: HD #3 on 11/17 63W with COPD on 2L home oxygen nightly, active tobacco use, CAD, HTN, DVT on warfarin, presenting with acute SOB, worsened ET, and increased productive cough. Overnight no acute events. VSS. 2L NC. +UOP, no BM noted. Labs INR 2 Seen this morning back at her baseline O2, requesting IV doxy to be d/c, feels like she is back to baseline, would llike to go home. No CP, GI or MSK complaints. Still mild AGUILAR that is close to her baseline. Objective Active Medications: Acetaminophen (Tylenol Tab*) 650 mg PO Q6H PRN PRN Reason: FEVER/PAIN Albuterol (Ventolin 2.5 Mg/3 Ml Neb.Tania*) 2.5 mg INH Q2H PRN PRN Reason: SOB/WHEEZING Amlodipine Besylate (Norvasc Tab*) 10 mg PO DAILY [facility] Last Admin: 11/17/18 08:18 Dose: 10 mg Atorvastatin Calcium (Lipitor*) 10 mg PO 1700 [facility] Last Admin: 11/16/18 16:40 Dose: 10 mg Buspirone HCl (Buspar Tab*) 10 mg PO BID [facility] Last Admin: 11/17/18 08:17 Dose: 10 mg Device (Nicotine Mouth Piece*) 1 each INH .USE W/ CARTRIDGE PRN PRN Reason: WITHDRAWAL - NICOTINE Last Admin: 11/16/18 01:02 Dose: 1 each Fluticasone/Vilanterol (Breo Ellipta Mdi 200/25(Nf)) 1 puff INH DAILY [facility] Last Admin: 11/17/18 07:11 Dose: Not Given Gabapentin (Neurontin Cap(*)) 400 mg PO BID [facility] Last Admin: 11/17/18 08:17 Dose: 400 mg Guaifenesin (Mucinex*) 1,200 mg PO BID [facility] Last Admin: 11/17/18 08:17 Dose: 1,200 mg Hydroxyzine HCl (Atarax Tab*) 50 mg PO QID PRN PRN Reason: ANXIETY Doxycycline Hyclate 100 mg/ (Sodium Chloride) 250 mls @ 250 mls/hr IVPB Q12H [facility] Last Admin: 11/17/18 00:44 Dose: 250 mls/hr Isosorbide Mononitrate (Imdur Er Tab*) 30 mg PO DAILY [facility] Last Admin: 11/17/18 08:17 Dose: 30 mg [place] Carbonate ([place] Carbonate Tab*) 300 mg PO BID [facility] Last Admin: 11/17/18 08:18 Dose: 300 mg Lorazepam (Ativan Tab(*)) 0.5 mg PO Q6H PRN PRN Reason: ANXIETY Melatonin (Melatonin) 3 mg PO BEDTIME [facility]; Protocol Last Admin: 11/16/18 19:58 Dose: 3 mg Metoprolol Succinate (Toprol Xl Tab*) 50 mg PO BEDTIME [facility] Last Admin: 11/16/18 20:00 Dose: 50 mg Mirtazapine (Remeron Tab*) 15 mg PO BEDTIME [facility] Last Admin: 11/16/18 19:58 Dose: 15 mg Montelukast Sodium (Singulair Tab*) 10 mg PO DAILY [facility] Last Admin: 11/17/18 08:18 Dose: 10 mg Nicotine (Nicotine Inhaler*) 10 mg INH Q2H PRN PRN Reason: CRAVING Last Admin: 11/17/18 08:16 Dose: 10 mg Nicotine (Nicotine Patch 21 Mg/24 Hr*) 1 patch TRANSDERM DAILY [facility] Last Admin: 11/17/18 08:18 Dose: Not Given Olanzapine (Zyprexa Tab*) 10 mg PO DAILY [facility] Last Admin: 11/17/18 08:16 Dose: 10 mg Pantoprazole Sodium (Protonix Tab*) 40 mg PO DAILY [facility]; Protocol Last Admin: 11/17/18 08:17 Dose: 40 mg Pharmacy Profile Note (Nicotine Patch Removal Note*) 1 note PATCH OFF 2100 [facility] Last Admin: 11/16/18 20:01 Dose: 1 note Prednisone (Deltasone Tab*) 40 mg PO DAILY [facility] Last Admin: 11/17/18 08:17 Dose: 40 mg Umeclidinium [place] (Incruse Ellipta Mdi (Nf)) 1 inh INH DAILY [facility] Last Admin: 11/17/18 07:11 Dose: Not Given Warfarin Sodium (Coumadin Tab(*)) 5 mg PO DAILY@1700 [facility]; Protocol Last Admin: 11/16/18 16:40 Dose: 5 mg Vital Signs - 8 hr 11/17/18 11/17/18 11/17/18 03:21 06:30 07:24 Temperature 97.9 F 98.5 F Pulse Rate 58 65 Respiratory 24 25 27 Rate Blood Pressure 123/42 114/64 (mmHg) O2 Sat by Pulse 100 100 Oximetry 11/17/18 08:17 Temperature Pulse Rate Respiratory 25 Rate Blood Pressure (mmHg) O2 Sat by Pulse Oximetry Oxygen Devices in Use Now: Nasal Cannula Appearance: Well woman in NAD Ears/Nose/Mouth/Throat: NL Teeth, Lips, Gums Neck: NL Appearance and Movements; NL JVP, Trachea Midline Respiratory: Symmetrical Chest Expansion and Respiratory Effort, - - Scant E wheeze in all lung [place] Cardiovascular: NL Sounds; No Murmurs; No JVD, RRR Abdominal: NL Sounds; No Tenderness; No Distention Lymphatic: No Cervical Adenopathy, No Axillary Adenopathy Skin: No Rash or Ulcers Neurological: Alert and Oriented x 3 Result Diagrams: 11/16/18 06:52 11/16/18 06:52 Microbiology and Other Data: Microbiology 11/15/18 09:50 Aerobic Blood Culture - Preliminary Blood Venous No Growth Day 1 Anaerobic Blood Culture - Preliminary No Growth Day 1 11/15/18 09:55 Aerobic Blood Culture - Preliminary Blood Venous No Growth Day 1 Anaerobic Blood Culture - Preliminary No Growth Day 1 11/15/18 16:15 Nasal Screen MRSA (PCR) - Final Nasal Mrsa Not Detected Assess/Plan/Problems-Billing 63W with COPD on 2L home oxygen nightly, active tobacco use, CAD, HTN, DVT on warfarin, presenting with acute SOB, worsened ET, and increased productive cough. She is without evidence for infection, and had quick improvement in symptoms with steroids. Likely that exacerbation is from continued smoking and possible nonadherence to home medications. - Patient Problems (1) COPD exacerbation Current Visit: Yes Status: Acute Priority: Medium Code(s): J44.1 - CHRONIC OBSTRUCTIVE PULMONARY DISEASE W (ACUTE) EXACERBATION SNOMED Code(s): 722943312 Comment: Tobacco cessation is necessary. - PO steroids d/c on taper - cont fluticasone/vilanterol inh, umeclidinium - cont duonebs prn - continue montelukast - cont doxycycline - may need chronic abx for anti-inflammatory component, will d/c on Doxy for total of 14 days (2) HTN (hypertension) Current Visit: Yes Status: Acute Code(s): I10 - ESSENTIAL (PRIMARY) HYPERTENSION SNOMED Code(s): 94115445 Comment: - continue home Imdur, metoprolol (switched to long acting), amlodipine (3) Schizoaffective disorder, bipolar type Current Visit: Yes Status: Chronic Priority: Medium Onset Date: 09/29/15 Code(s): F25.0 - SCHIZOAFFECTIVE DISORDER, BIPOLAR TYPE SNOMED Code(s): 26057726 Comment: Unclear exactly what patholgies pt has. Documentation with axis II disorders, as well. -Continue home olanzapine, mirtazapine, lithium, buspirone, gabapentin, hydroxyzine, AND lorazepam (4) DVT (deep venous thrombosis) Current Visit: Yes Status: Chronic Code(s): I82.409 - ACUTE EMBOLISM AND THOMBOS UNSP DEEP VN UNSP LOWER EXTREMITY SNOMED Code(s): 880999327 Comment: Therapeutic INR. Cont warfarin 5mg. (5) Tobacco abuse Current Visit: Yes Status: Acute Priority: Medium Code(s): Z72.0 - TOBACCO USE SNOMED Code(s): 596287282 Comment: Pt reports she previously tried Welbutrin and had a seizure. Unk if tried Chantix. Pt aware of connection between disease/hospitalizations and smoking. States she didn't want to take NRT because she felt like she was "addicted" to it. She does agree that it's safer to continuously need NRT rather than to continuously smoke cigarettes. - cont NRT, d/c with patches, inhaler - motivational interviewing (6) DVT prophylaxis Current Visit: No Status: Acute Priority: Medium Code(s): UPY7324 - SNOMED Code(s): 609173816 Comment: -Continue Coumadin (7) Full code status Current Visit: No Status: Acute Code(s): Z78.9 - OTHER SPECIFIED HEALTH STATUS SNOMED Code(s): 773758965 Status and Disposition: Discharge to home
[2018-11-17 11:34] VITALS: BP 102/37
[2018-11-17] MEDS ORDERED: DOXYcycline CAP(*) 100 MG PO SCH (14:00)
--- NOTE | 2018-11-17 22:51 | DS ---
DISCHARGE SUMMARY: DATE OF ADMISSION: 11/15/18 DATE OF DISCHARGE: 11/17/18 PRIMARY CARE PROVIDER: Dr. Tom Schrader. PRIMARY DIAGNOSIS: Chronic obstructive pulmonary disease exacerbation. SECONDARY DIAGNOSES: 1. Chronic obstructive pulmonary disease GOLD stage 4. 2. Nicotine dependence. 3. Coronary artery disease. 4. Hypertension. 5. Schizoaffective disorder, bipolar. 6. DVT, on anticoagulation. MEDICATIONS ON DISCHARGE: 1. Acetaminophen 650 mg p.o. q.4 hours. 2. Albuterol 2.5 mg inhaled q.2 hours p.r.n. 3. DuoNebs 1 neb inhaled q.4 hours p.r.n. for shortness of breath. 4. Nicotine inhaler 10 mg inhaled q.2 hours p.r.n. 5. Nicotine patch 21 mg transdermal daily. 6. Prednisone 40 mg daily for 5 additional days after discharge, then 30 mg for 5 additional days, then 20 mg for 5 additional days, then 10 mg for 5 additional days, then stop. 7. Atorvastatin 10 mg p.o. nightly. 8. Buspirone 10 mg p.o. b.i.d. 9. Esomeprazole 40 mg p.o. daily. 10. Fluticasone 1 puff inhaled daily. 11. Gabapentin 400 mg p.o. b.i.d. 12. Hydroxyzine 50 mg p.o. q.i.d. 13. Imdur 30 mg extended release p.o. daily. 14. [place] 300 mg p.o. b.i.d. 15. Lorazepam 0.5 mg p.o. q.6 hours. 16. Melatonin 3 mg p.o. q.h.s. 17. Metoprolol 25 mg p.o. b.i.d. 18. Mirtazapine 15 mg p.o. q.h.s. 19. Montelukast 10 mg p.o. daily. 20. Olanzapine 10 mg p.o. daily. 21. Incruse inhaler 62.5 mcg inhaled daily. 22. Coumadin 5 mg p.o. daily at 5 p.m. 23. Doxycycline 100 mg p.o. b.i.d. for an additional 10 days after discharge. Medication changes in this hospitalization are the addition of doxycycline 100 mg p.o. b.i.d. for a total of 14 days and prednisone 40 mg and subsequent taper for an additional 20 days after discharge. HOSPITAL COURSE: Is as follows: A 63-year-old lady with the above past medical history who presented to the emergency room on 11/15/18 with complaint of severe shortness of breath that awoke her from sleep at 2 p.m. and kept her from sleeping, had significant wheezing on arrival, and found to have recurrent COPD exacerbation likely in the setting of noncompliance with tobacco cessation. Her emergency room course was unremarkable for signs of pneumonia or any other clear inciting factor and she was admitted to the hospitalist service, and her hospital course by problem is as follows: 1. Ndtrn-[id number] hypoxic respiratory failure. This is secondary to COPD exacerbation in the setting of noncompliance to smoking cessation. The patient was started on doxycycline as well as will need a long prednisone taper and nicotine replacement therapy is counseled above all. She did very well in the hospitalization on [id number] nebs, prednisone that was IV for 48 hours and then transitioned to p.o. as well as supplemental oxygen; her baseline is 2 L nasal cannula. 2. COPD GOLD stage 4. As above, this was the cause for her [id number] hypoxic respiratory failure and she is already optimized on long-acting muscarinic, long-acting beta agonist, and inhaled corticosteroid as well as has nebulizer treatments with DuoNebs and albuterol at home. Will need long-term prednisone taper and will go home on 2 weeks of doxycycline and outpatient pulmonary followup. She has no-showed to prior pulmonology referrals in the past and she may benefit from long-term anti-inflammatory and antibiotic treatment in the future. 3. CAD. The patient is on a statin and that was continued. 4. Hypertension. The patient's home amlodipine, Imdur, and metoprolol were continued and is well controlled. 5. Schizoaffective disorder, bipolar type. The patient's mood stabilization medications of lithium, gabapentin, olanzapine were continued. 6. Anxiety and depression. Her mirtazapine, lorazepam, and hydroxyzine were continued. 7. The patient has a history of DVT and we continued the patient's home warfarin with therapeutic INR on day of discharge. For DVT prophylaxis, she was on her therapeutic anticoagulation for DVT. PHYSICAL EXAM ON DAY OF DISCHARGE: The patient is well, ambulating with 2 L nasal cannula; which is her baseline, and ambulating sats of greater than 90%, tolerating p.o., and generally feeling much better. Her physical exam is notable only for scattered expiratory wheezes, but otherwise good air movement with no increased work of breathing. DATA COLLECTED IN THIS HOSPITALIZATION: Labs last done 11/16/18, white blood cell count of 6, hemoglobin 11.6, hematocrit of 37, platelets of 191. INR on day of discharge is 2.29. BMP on 11/16/18, sodium 138, potassium 4.5, chloride 104, carbon dioxide 30, BUN 21, creatinine 0.79, glucose 140. Micro done in this hospitalization was no growth today for blood cultures. Imaging done during this hospitalization included a chest x-ray done on 11/15/18, which showed no active cardiopulmonary disease. ITEMS TO FOLLOW UP ON DISCHARGE: 1. COPD exacerbation. As above, she is discharged on 2 weeks of doxycycline and a long prednisone taper. She may need continuation of this taper and again , nicotine replacement therapy is strongly encouraged as this was most likely the cause of her re-presentation to the hospital. She declines Chantix or Zyban at this time and prefers continued nicotine replacement therapy. 2. Tobacco use. As per above, continue to work with the patient to stress smoking cessation altogether. TIME SPENT: Forty minutes were spent on the planning of this discharge with over half of that spent directly at the patient's bedside providing direct patient care. The patient is agreeable to the plan of discharge, which is to home with her home oxygen requirements of 2 L. She agrees to follow up with her primary care provider within 2 weeks and furthermore, we stressed that an outpatient pulmonology referral will be made where she should establish care for her severe COPD and frequent exacerbations. If there are any questions about the care provided for this patient during this hospitalization, please do not hesitate to reach out. [id number]/[facility] #: [id number] ANNITA
== END 2018-11-17 15:17 | disposition home or self-care (01) | DRG 190 ==
LOC: ED 08:57 → MEDTELE 11:54
PROVIDERS: ADMIT Student in an Organized Health Care Education/Training Program; ATTEND Internal Medicine
DX: J44.1 Chronic obstructive pulmonary disease with (acute) exacerbation (principal); J96.21 Acute and chronic respiratory failure with hypoxia; I25.10 Atherosclerotic heart disease of native coronary artery without angina pectoris; I11.9 Hypertensive heart disease without heart failure; F17.210 Nicotine dependence, cigarettes, uncomplicated; F25.0 Schizoaffective disorder, bipolar type; E83.42 Hypomagnesemia; I73.9 Peripheral vascular disease, unspecified; F41.8 Other specified anxiety disorders; Z86.718 Personal history of other venous thrombosis and embolism; Z99.81 Dependence on supplemental oxygen; Z79.01 Long term (current) use of anticoagulants; Z79.1 Long term (current) use of non-steroidal anti-inflammatories (NSAID); Z79.51 Long term (current) use of inhaled steroids; Z79.899 Other long term (current) drug therapy; Z88.6 Allergy status to analgesic agent; Z88.1 Allergy status to other antibiotic agents; Z88.0 Allergy status to penicillin; Z88.8 Allergy status to other drugs, medicaments and biological substances; Z82.49 Family history of ischemic heart disease and other diseases of the circulatory system
CPT/HCPCS: 36415; 71045; 80048; 80053; 81003; 83605; 83735; 84484; 85025; 85610; 86140; 87040; 87641; 93005; 94640; 96365; 99282; A9270-GY; J2930; J3475; J7512

== ENCOUNTER 2018-12-23 10:47 | Inpatient (IN) | payer MEDICARE, MEDICAID ==
--- NOTE | 2018-12-23 10:50 | ED ---
Shortness of Breath - HPI Summary HPI Summary: This pt is a 63 y/o female, with hx of COPD and angina, presenting to [facility] via EMS for SOB for the past 2 days. Pt reports she has also had a nonproductive cough, but "not too much," and a "strange stabbing pain" on the left side of her chest. She also states she has swelling in left leg more than usual. Pt notes diarrhea for the past 3-4 days. Denies fever, abd pain, nausea, vomiting. Pt believes her SOB is secondary to her COPD. Per EMS pt was saturating at 90% on room air. EMS administered nebulizer [employer] with some relief. EMS reports pt is a current smoker, but has cut back. Pt wears 2L of NC at home at night, per nurse's note. - History of Current Complaint Hx Obtained From: Patient, EMS Onset/Duration: Lasting Days, Still Present Timing: Constant Current Severity: Moderate Dyspnea At: Rest Aggrevating Factors: Nothing Alleviating Factors: Nothing Associated Signs & Symptoms: Cough (Nonproductive), Chest Pain w/Cough, Edema - in left leg - Allergy/Home Medications Allergies/Adverse Reactions: Allergies Allergy/AdvReac Type Severity Reaction Status Date / Time bupropion [From Wellbutrin] Allergy Agitation Verified 11/15/18 09:05 Cephalosporins Allergy Agitation Verified 11/15/18 09:05 chlorproethazine Allergy Agitation Verified 11/15/18 09:05 erythromycin base Allergy Diarrhea Verified 11/15/18 09:05 Penicillins Allergy Hives Verified 11/15/18 09:05 tobramycin Allergy Diarrhea Verified 11/15/18 09:05 doxycycline AdvReac Severe See Comment Verified 11/17/18 12:53 PMH/Surg Hx/FS Hx/Imm Hx Endocrine/Hematology History: Reports: Hx Anticoagulant Therapy, Hx Anemia, Other Endocrine/Hematological Disorders - L leg DVT Denies: Hx Diabetes, Hx Systemic Lupus Erythematosus, Hx Thyroid Disease Cardiovascular History: Reports: Hx Angina, Hx Coronary Artery Disease, Hx Deep Vein Thrombosis, Hx Hypercholesterolemia, Hx Hypertension, Hx Peripheral Vascular Disease, Other Cardiovascular Problems/Disorders - PERIPHERAL ARTERY DISEASE; CAD; DVT Denies: Hx Auto Implanted Cardiovert Defib, Hx Congestive Heart Failure, Hx Pacemaker/ICD Respiratory History: Reports: Hx Asthma, Hx Chronic Bronchitis, Hx Chronic Obstructive Pulmonary Disease (COPD) - 2L at home, Hx Pneumonia, Hx Seasonal Allergies, Other Respiratory Problems/Disorders - PNA Denies: Hx Cystic Fibrosis, Hx Lung Cancer, Hx Pleural Effusion, Hx Pulmonary Edema, Hx Pulmonary Embolism, Hx Sleep Apnea GI History: Reports: Hx Gall Bladder Disease - removed, Hx Gastroesophageal Reflux Disease, Hx Irritable Bowel, Other GI Disorders - hernia repair X 2 Denies: Hx Cirrhosis, Hx Crohn's Disease, Hx Diverticulosis History: Denies: Hx Dialysis, Hx Renal Disease Musculoskeletal History: Denies: Hx Arthritis, Hx Rheumatoid Arthritis, Hx Osteoporosis Sensory History: Denies: Hx Contacts or Glasses, Hx Glaucoma, Hx Deafness, Hx Hearing Aid, Hx Hearing Problem Opthamlomology History: Denies: Hx Contacts or Glasses, Hx Glaucoma Neurological History: Denies: Hx Headaches, Hx Seizures, Hx Transient Ischemic Attacks (TIA) Psychiatric History: Reports: Hx Anxiety, Hx Depression, Hx Inpatient Treatment , Hx Community Mental Health Tx, Hx Schizophrenia, Hx Bipolar Disorder, Hx Suicide Attempt Denies: Hx Eating Disorder, Hx Panic Disorder, Hx of Violent Episodes Against Others - Cancer History Hx Chemotherapy: No - Surgical History Surgery Procedure, Year, and Place: bilat thumb repairs, hernia repairs X 2, cholecystectomy, appendectomy Hx Anesthesia Reactions: No - Immunization History Date of Tetanus Vaccine: UTD Date of Influenza Vaccine: 06/2018 Infectious Disease History: Denies: Hx Clostridium Difficile, Hx Hepatitis, Hx Human Immunodeficiency Virus (HIV), Hx of Known/Suspected MRSA, Hx Shingles, Hx Tuberculosis - Family History Known Family History: Positive: Cardiac Disease - [place], Other - schizophrenia, anxiety Negative: Hypertension, Diabetes Family History: Negative HTN/DM per EMR - Social History Alcohol Use: Rare Hx Substance Use: No Substance Use Type: Reports: None Hx Tobacco Use: Yes Smoking Status (MU): Current Every Day Smoker Type: Cigarettes Amount Used/How Often: 1 PPD Have You Smoked in the Last Year: Yes Review of Systems Negative: Fever Positive: Chest Pain Positive: Shortness Of Breath, Cough Positive: Diarrhea. Negative: Abdominal Pain, Vomiting, Nausea Positive: Edema All Other Systems Reviewed And Are Negative: Yes Physical Exam - Summary Physical Exam Summary: Appearance: Chronically ill appearing woman lying in the stretcher in mild distress. Skin: Warm, dry, no obvious rash Eyes: sclera anicteric, no conjunctival pallor ENT: mucous membranes moist, pharynx appears normal Neck: Supple, nontender Respiratory: Lungs with good aeration bilaterally with minimal wheezing. Cardiovascular: Normal S1, S2. No murmurs. Normal distal pulses in tibial and radial bilaterally. Abdomen: Soft, nontender, normal active bowel sounds present Musculoskeletal: Mild nonpitting edema of left lower extremity without calf tenderness. Neurological: A&Ox3, awake and alert, mentation is normal, speech is fluent and appropriate Psychiatric: affect is normal, does not appear anxious or depressed Triage Information Reviewed: Yes Vital Signs On Initial Exam: Initial Vitals Temp Pulse Resp BP Pulse Ox 97.5 F 94 24 114/71 99 12/23/18 10:49 12/23/18 10:49 12/23/18 10:49 12/23/18 10:49 12/23/18 10:49 Vital Signs Reviewed: Yes Diagnostics - Laboratory Result Diagrams: 12/23/18 11:47 12/23/18 11:47 Lab Statement: Any lab studies that have been ordered have been reviewed, and results considered in the medical decision making process. - Radiology Chest XR Radiology Interpretation Completed By: Radiologist Summary of Radiographic Findings: IMPRESSION: Findings consistent with COPD, no evidence for acute disease. Dr. Pittman has reviewed this report. - EKG 10:59 Cardiac Rate: NL - at 90 bpm EKG Rhythm: Sinus Rhythm Summary of EKG Findings: Inferior infarct, old. Course/Dx - Course Assessment/Plan: Pt is a 63 y/o female, with hx of COPD and angina, presenting to [facility] via EMS for SOB for the past 2 days. Pt reports she has also had a nonproductive cough, but "not too much," and a "strange stabbing pain" on the left side of her chest. She also states she has swelling in left leg more than usual. Lab results are unremarkable. Chest XR shows findings consistent with COPD, no evidence for acute disease. In the ED course the pt was given Prednisone, Albuterol. Discussed the case with Dr. Ambrocio, hospitalist, who accepted the pt for admission. - Diagnoses Provider Diagnoses: COPD exacerbation - Physician Notifications Discussed Care of Patient With: Karma Ambrocio - hospitalist Time Discussed With Above Provider: 13:01 Instructed by Provider To: Admit As Inpatient Discharge - Sign-Out/Discharge Documenting (check all that apply): Patient Departure - Admit to [facility] Patient Received Moderate/Deep Sedation with Procedure: No - Discharge Plan Condition: Stable Disposition: ADMITTED TO [facility] Referrals: Tom Schrader MD [Primary Care Provider] - - Billing Disposition and Condition Condition: STABLE Disposition: Admitted to [facility] - Attestation Statements Document Initiated by Genesis: Yes Documenting Scribe: Karma Kc Provider For Whom Genesis is Documenting (Include Credential): Elliott Pittman MD Scribe Attestation: Karma Laboy, scribed for Elliott Pittman MD on 12/23/18 at 1412. Scribe Documentation Reviewed: Yes Provider Attestation: The documentation as recorded by the Karma kiran accurately reflects the service I personally performed and the decisions made by me, Elliott Pittman MD Status of Scribe Document: Viewed
[2018-12-23] MEDS ORDERED: predniSONE TAB* 20 MG PO ONE (11:44)
[2018-12-23 12:10] LABS: ABS Basophils 0 10^3/ul (0-0.2); ABS Eosinophils 0.2 10^3/ul (0-0.6); ABS Lymphocytes 1.1 10^3/ul (1.0-4.8); ABS Monocytes 0.4 10^3/ul (0-0.8); ABS Neutrophils 4.9 10^3/ul (1.5-7.7); ABS Nucleated RBC 0 10^3/ul; Eosinophil % 3.5 %; Hematocrit 38 % (33-41); Lymphocyte % 16.3 %; Mean Corpuscular HGB Conc 32 g/dL (31-36); Mean Corpuscular Hemoglobin 27 pg (27-31); Mean Corpuscular Volume 85 fL (80-97); Mean Platelet Volume 8.3 fL (7.4-10.4); Nucleated Red Blood Cells % 0; Platelet Count 183 10^3/uL (150-450); Red Blood Count 4.41 10^6 /uL (3.70-4.87); Red Cell Distribution Width 17 % (10.5-15); White Blood Count 6.6 10^3/uL (3.5-10.8)
[2018-12-23 12:29] LABS: Albumin 3.8 g/dL (3.2-5.2); Albumin/Globulin Ratio 1.6 (1-3); BUN/Creatinine Ratio 9.5 (8-20); Calcium 9.7 mg/dL (8.6-10.3); EGFR African American 83.4 (>60); EGFR Non-African American 68.9 (>60); Globulin 2.4 g/dL (2-4); Potassium 4.1 mmol/L (3.5-5.0); Total Bilirubin 0.4 mg/dL (0.2-1.0); Total Protein 6.2 g/dL (6.4-8.9)
[2018-12-23] MEDS ORDERED: Albuterol 2.5 MG/3 ML NEB.SOL* (0.083%) INH ONE (12:54)
[2018-12-23] MEDS ORDERED: Acetaminophen TAB* 325 MG PO PRN ×2 (14:20→14:26)
[2018-12-23] MEDS ORDERED: hydrOXYzine HCL TAB* 50 MG PO PRN (14:26)
[2018-12-23] MEDS ORDERED: LORazepam TAB(*) 0.5 MG PO PRN (14:26)
[2018-12-23] MEDS ORDERED: Albuterol 2.5 MG/3 ML NEB.SOL* (0.083%) INH PRN (14:26)
[2018-12-23 14:44] LABS: Magnesium 1.7 mg/dL (1.9-2.7)
[2018-12-23] MEDS ORDERED: Enoxaparin(*) 40 MG/0.4 ML SYR SUBCUT SCH (15:00)
[2018-12-23] MEDS ORDERED: Magnesium Sulfate 2 GM IV* 2 GM/50 ML BAG IVPB ONE (15:44)
[2018-12-23] MEDS: Atorvastatin* 10 MG TAB PO SCH (16:40)
[2018-12-23] MEDS ORDERED: Warfarin TAB(*) 5 MG PO ONE (17:00)
[2018-12-23] MEDS ORDERED: Mouth Piece, Nicotine* 1 EACH CARTRIDGE ONE (17:04)
[2018-12-23] MEDS: Nicotine Inhaler* 10 MG AMP INH PRN ×2 (17:08→21:15)
--- NOTE | 2018-12-23 17:59 | HP ---
CC: Dr. Tom Schrader * HISTORY AND PHYSICAL: DATE OF ADMISSION: 12/23/18 PRIMARY CARE PROVIDER: Dr. Tom Schrader. HEALTHCARE PROXY: Her son, Maikel. CODE STATUS: Full. CHIEF COMPLAINT: Acute on chronic shortness of breath for 2 days. HISTORY OF PRESENT ILLNESS: Ms. Camejo is a 63-year-old woman with COPD on 2 L of oxygen at night; HTN; CAD; schizoaffective disorder; DVT on warfarin, who is presenting to the emergency department with an increase in her baseline shortness of breath for the last 2 days. Of note, she was discharged approximately 1 month ago from [facility] for a similar presentation , thought to be due to continued cigarette smoking. The patient had completed a course of prednisone and doxycycline and she states that she stopped taking both of these medications a couple of weeks ago, but had continued to take her other home medications. She has continued to smoke a few cigarettes every day. She denies sick contacts or recent travel. A few days ago, she noticed that her shortness of breath and nonproductive cough returned similar to her last hospital presentation. She reports an epigastric burning associated with this pain as well as diarrhea for the last few days. She denies blood or black in her stool. She denies rhinorrhea, sore throat, headache, chest pain, lightheadedness, fevers, chills, abdominal pain, nausea, or vomiting. Otherwise , 10-point review of systems is negative. In the emergency room, her labs were unremarkable and her chest x-ray was not concerning for infection. As the patient appeared to have increased work of breathing with a new daytime oxygen requirement, she was admitted to Medicine for further management. She was given prednisone and albuterol in the emergency room. PAST MEDICAL HISTORY: 1. COPD, on 2 L of oxygen at night. 2. Hypertension. 3. DVT, on warfarin. 4. Peripheral arterial disease, status post stenting. 5. Coronary artery disease. 6. Schizoaffective disorder. 7. Anxiety. PAST SURGICAL HISTORY: 1. Appendectomy. 2. Hernia repair. 3. Cholecystectomy. HOME MEDICATIONS: 1. Breo Ellipta MDI 1 puff daily. 2. Montelukast 10 mg daily. 3. Incruse Ellipta 1 inhalation daily. 4. Albuterol p.r.n. as needed. 5. DuoNebs as needed. 6. Warfarin 5 mg daily. 7. Hydroxyzine 50 mg up to 4 times a day as needed for anxiety. 8. Ativan 0.5 mg up to 4 times a day as needed for anxiety. 9. Buspirone 10 mg b.i.d. 10. Mirtazapine 15 mg nightly. 11. Gabapentin 400 mg b.i.d. 12. Olanzapine 10 mg daily. 13. Cochiti 300 mg twice a day. 14. Atorvastatin 10 mg nightly. 15. Metoprolol 25 mg twice a day. 16. Amlodipine 5 mg daily. 17. Isosorbide mononitrate ER 30 mg daily. 18. Esomeprazole 40 mg daily. ALLERGIES: PENICILLIN cause HIVES, TOBRAMYCIN, diarrhea; ERYTHROMYCIN, CHLORPROETHAZINE, CEPHALOSPORINS, and BUPROPION cause agitation. FAMILY HISTORY: Both parents with emphysema. Mother in her 70s from COPD. Father in his 70s from a heart attack. The patient is not aware of the medical history of her 7 siblings. SOCIAL HISTORY: The patient with over [id number] smoking history, is now down to 3 cigarettes a day. Rare alcohol. Never illicit drug use. 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 Lives with her son, Maikel, who is also her healthcare proxy. PHYSICAL EXAMINATION GENERAL: Chronically ill-appearing female, older than stated age, reclining in bed and noted to have significantly increased work of breathing. VITAL SIGNS: Afebrile, heart rate 90s, blood pressure 132/70, respiratory rate 22, oxygen saturation 92% on 3 L. HEENT: Sclerae anicteric. No conjunctival injections. Moist mucous membranes. NECK: Supple. No JVD. RESPIRATORY: Expiratory wheezes diffusely. Prolonged expiratory phase. No crackles or rhonchi. No accessory muscle use. CARDIAC: Regular rate and rhythm. No murmurs, gallops, or rubs. ABDOMEN: Soft, nontender, nondistended. Normoactive bowel sounds. EXTREMITIES: Warm and well perfused. No edema. NEURO: Cranial nerves II through XII intact. A and O x3. DIAGNOSTIC STUDIES/LAB DATA: Labs reviewed and notable for normal WBC. Negative D-dimer. BMP only significant for magnesium low to 1.7. no INR EKG with normal sinus rhythm, rate 90, otherwise unremarkable. Chest x-ray with hyperinflated and clear lungs. ASSESSMENT AND PLAN: A 63-year-old woman with a past medical history of chronic obstructive pulmonary disease, on nocturnal home oxygen, with active smoking; hypertension; coronary artery disease; schizoaffective disorder; DVT, on warfarin; peripheral arterial disease is presenting with recurrence of shortness of breath and nonproductive cough in the setting of continued smoking. She is found without fever or leukocytosis, and with clear lungs on chest x-ray. 1. Acute on chronic hypoxic respiratory failure. The patient is currently requiring 2 L of oxygen while awake and alert and normally she only wears this at night. Given lack of infectious symptoms, it is unlikely she is having a chronic obstructive pulmonary disease exacerbation triggered by infection. She has no pleuritic chest pain or tachycardia and she has been on warfarin, so it is unlikely that she has pulmonary embolism. Wean O2 as tolerated - goal SaO2 is 88-92%. The patient has already been started on oral steroids with nebulizers. She will be given IV magnesium and started on doxycycline for its antiinflammatory properties. She will be continued on her home long-acting beta -agonist and antimuscarinic inhalers. She will be educated on the importance of smoking cessation. 2. Diarrhea: Unclear etiology, although may have resolved in ER. Continue to monitor - will consider stool cultures if symptoms return. 3. Active tobacco. We will supply nicotine replacement therapy while the patient is admitted. 4. Hypertension. Continue home amlodipine, metoprolol. 5. Coronary artery disease. Continue Imdur, metoprolol as above. Continue home statin. 6. Peripheral arterial disease. Continue home statin. 7. Schizoaffective disorder with bipolar type. Continue her mood stabilization with lithium. Continue home antidepressants, mirtazapine. We will also continue home antipsychotic, olanzapine. 8. Anxiety. Continue Ativan and hydroxyzine p.r.n. Continue home Buspar. 9. History of deep vein thrombosis. Continue warfarin dosing by level. 10. DVT prophylaxis. The patient is on therapeutic anticoagulation. 11. Code status. The patient is full code. Disposition. The patient will be admitted until she is able to return to her home oxygen requirements. TIME SPENT: Approximately 60 minutes was spent on admission of this patient, over half of which was spent at bedside obtaining history and physical exam. [id number]/[facility] #: [id number] [facility]
[2018-12-23] MEDS: Mirtazapine TAB* 15 MG PO SCH (21:11)
[2018-12-23] MEDS: DOXYcycline CAP(*) 100 MG PO SCH (21:11)
[2018-12-23] MEDS: busPIRone TAB* 10 MG PO SCH (21:11)
[2018-12-23] MEDS: Metoprolol Tartrate TAB* 25 MG PO SCH (21:11)
[2018-12-23] MEDS: Gabapentin CAP(*) 400 MG PO SCH (21:11)
[2018-12-23] MEDS: Lithium Carbonate TAB* 300 MG PO SCH (21:12)
[2018-12-23] MEDS: Melatonin 3 MG TAB PO SCH (21:12)
[2018-12-24] MEDS: Nicotine Inhaler* 10 MG AMP INH PRN ×4 (03:33→16:41)
[2018-12-24 07:16] LABS: BUN/Creatinine Ratio 13.4 (8-20); Calcium 9.7 mg/dL (8.6-10.3); EGFR African American 70.6 (>60); EGFR Non-African American 58.4 (>60); Potassium 4.4 mmol/L (3.5-5.0)
[2018-12-24 07:23] LABS: INR 1.22 (0.77-1.02)
[2018-12-24] MEDS ORDERED: NF:Fluticasone/Vilanterol MDI(NF) 200/25 MDI INH SCH (09:00)
[2018-12-24] MEDS ORDERED: NF: Umeclidinium 62.5 MDI(NF) MDI INH SCH (09:00)
[2018-12-24] MEDS: Montelukast Sodium TAB* 10 MG PO SCH (09:38)
[2018-12-24] MEDS: busPIRone TAB* 10 MG PO SCH ×2 (09:38→21:14)
[2018-12-24] MEDS: Lithium Carbonate TAB* 300 MG PO SCH ×2 (09:38→21:15)
[2018-12-24] MEDS: amLODIPine TAB* 5 MG PO SCH (09:38)
[2018-12-24] MEDS: Pantoprazole TAB * 40 MG TAB PO SCH (09:38)
[2018-12-24] MEDS: predniSONE TAB* 20 MG PO SCH (09:38)
[2018-12-24] MEDS: DOXYcycline CAP(*) 100 MG PO SCH ×2 (09:38→21:14)
[2018-12-24] MEDS: Gabapentin CAP(*) 400 MG PO SCH ×2 (09:38→21:14)
[2018-12-24] MEDS: Isosorbide Mononitrate ER TAB* 30 MG PO SCH (09:39)
[2018-12-24] MEDS: Metoprolol Tartrate TAB* 25 MG PO SCH (09:39)
[2018-12-24] MEDS: OLANzapine TAB* 10 MG PO SCH ×2 (09:39)
[2018-12-24] MEDS ORDERED: Spiriva Inhaler DEVICE* 1 EACH DEVICE INH ONE (10:00)
[2018-12-24] MEDS: Albuterol/Ipratropium NEB.SOL* Albuterol 2.5 MG/Ipratropium 0.5 MG 3 ML INH PRN (10:20)
[2018-12-24] MEDS: Tiotropium CAP.INH* CAP.INH/18 MCG (USE ORDER SET !) INH SCH (10:20)
[2018-12-24] MEDS: Mometasone/Formoter 200/5 MDI INH SCH ×2 (10:21→19:50)
[2018-12-24] MEDS: Atorvastatin* 10 MG TAB PO SCH (16:41)
[2018-12-24] MEDS ORDERED: Warfarin TAB(*) 5 MG PO ONE (17:00)
--- NOTE | 2018-12-24 19:29 | PN ---
Subjective Interval History: Noted to have sub-therapeutic INR. Questionable medication adherence at home. Pt admits that her home situation is stressful because [place] a [place]. They have to move soon and they are unable to find housing. Pt does admit this may be the reason she decides to come to the hospital. She is still on supplemental O2 during day. Objective Active Medications: Acetaminophen (Tylenol Tab*) 650 mg PO Q4H PRN PRN Reason: FEVER/PAIN Albuterol (Ventolin 2.5 Mg/3 Ml Neb.Tania*) 2.5 mg INH Q2H PRN PRN Reason: SOB/WHEEZING Albuterol/Ipratropium (Duoneb (Albuterol 2.5 Mg/Ipratropium 0.5 Mg)) 1 neb INH RT.[id number] AWAKE PRN PRN Reason: sob/wheezing Last Admin: 12/24/18 10:20 Dose: 1 neb Amlodipine Besylate (Norvasc Tab*) 10 mg PO DAILY [facility] Last Admin: 12/24/18 09:38 Dose: 10 mg Atorvastatin Calcium (Lipitor*) 10 mg PO 1700 [facility] Last Admin: 12/24/18 16:41 Dose: 10 mg Buspirone HCl (Buspar Tab*) 10 mg PO BID [facility] Last Admin: 12/24/18 09:38 Dose: 10 mg Doxycycline Hyclate (Vibramycin Cap(*)) 100 mg PO BID [facility] Last Admin: 12/24/18 09:38 Dose: 100 mg Gabapentin (Neurontin Cap(*)) 400 mg PO BID [facility] Last Admin: 12/24/18 09:38 Dose: 400 mg Hydroxyzine HCl (Atarax Tab*) 50 mg PO QID PRN PRN Reason: ANXIETY Isosorbide Mononitrate (Imdur Er Tab*) 30 mg PO DAILY [facility] Last Admin: 12/24/18 09:39 Dose: 30 mg [place] Carbonate ([place] Carbonate Tab*) 300 mg PO BID [facility] Last Admin: 12/24/18 09:38 Dose: 300 mg Lorazepam (Ativan Tab(*)) 0.5 mg PO Q12H PRN PRN Reason: ANXIETY Melatonin (Melatonin) 3 mg PO BEDTIME [facility] Last Admin: 12/23/18 21:12 Dose: 3 mg Metoprolol Tartrate (Lopressor Tab*) 25 mg PO BID [facility] Last Admin: 12/24/18 09:39 Dose: 25 mg Mirtazapine (Remeron Tab*) 15 mg PO BEDTIME [facility] Last Admin: 12/23/18 21:11 Dose: 15 mg Mometasone Furoate/Formoterol Fumar (Dulera 200/5 Mdi*) 2 puff INH BID [facility] Last Admin: 12/24/18 10:21 Dose: Not Given Montelukast Sodium (Singulair Tab*) 10 mg PO DAILY [facility] Last Admin: 12/24/18 09:38 Dose: 10 mg Nicotine (Nicotine Inhaler*) 10 mg INH Q2H PRN PRN Reason: CRAVING Last Admin: 12/24/18 16:41 Dose: 10 mg Olanzapine (Zyprexa Tab*) 10 mg PO 2100 [facility] Pantoprazole Sodium (Protonix Tab*) 40 mg PO DAILY [facility]; Protocol Last Admin: 12/24/18 09:38 Dose: 40 mg Pharmacy Profile Note (Coumadin Per Pharmacy*) 1 note FOLLOW UP .PER PHARMACY PROTOC [facility]; Protocol Prednisone (Deltasone Tab*) 40 mg PO DAILY [facility] Last Admin: 12/24/18 09:38 Dose: 40 mg Tiotropium [place] (Spiriva Cap.Inh*) 1 cap INH 0900 [facility] Last Admin: 12/24/18 10:20 Dose: 1 cap Vital Signs - 8 hr 12/24/18 12/24/18 12:09 15:35 Temperature 98.0 F Pulse Rate 72 Respiratory 26 32 Rate Blood Pressure 136/53 (mmHg) O2 Sat by Pulse 92 Oximetry Oxygen Devices in Use Now: Nasal Cannula Appearance: pt comfortable at rest without increased WOB, however, as she noticed this writer technical publications approaching, she began to take deeper, more frequent breaths Eyes: PERRLA Ears/Nose/Mouth/Throat: Clear Oropharnyx, Mucous Membranes Moist Respiratory: - - diffuse expiratoroy wheeze improved, no crackles Cardiovascular: RRR Abdominal: NL Sounds; No Tenderness; No Distention Extremities: No Edema Result Diagrams: 12/23/18 11:47 12/24/18 06:21 Microbiology and Other Data: Microbiology 12/23/18 11:54 Aerobic Blood Culture - Preliminary Blood Venous No Growth Day 1 Anaerobic Blood Culture - Preliminary No Growth Day 1 12/23/18 11:47 Aerobic Blood Culture - Preliminary Blood Venous No Growth Day 1 Anaerobic Blood Culture - Preliminary No Growth Day 1 Assess/Plan/Problems-Billing Assessment: 63W with COPD on home o2, active tobacco use, HTN, CAD, anxiety, schizoaffective disorder, PAD, PVT on warfarin, presents with increased SOB/ cough, found with increased WOB. Given no fever, leukocytosis, and clear lungs on CXR, and the fact that patient is noted to have increased WOB only when aware she is being observed, I now have higher suspicion that her presenting symptoms are related to anxiety and possibly malingering (reports she is very stressed at home and doesn't want to be there). If she indeed does require oxygen during the day, she is set up to do this at home as she already has nocturnal O2 at home. - Patient Problems (1) COPD exacerbation Comment: Given no fever, leukocytosis, and clear lungs on CXR, and the fact that patient is noted to have increased WOB only when aware she is being observed, I now have higher suspicion that her presenting symptoms are related to anxiety and possibly malingering (reports she is very stressed at home and doesn't want to be there). If she indeed does require oxygen during the day, she is set up to do this at home as she already has nocturnal O2 at home. Tobacco cessation is necessary. - PO steroids burst x 4 days - cont fluticasone/vilanterol inh, umeclidinium - cont duonebs prn - continue montelukast - cont doxycycline - may need chronic abx for anti-inflammatory component, will d/c on Doxy for total of 14 days (2) HTN (hypertension) Comment: - continue home Imdur, metoprolol, amlodipine (3) History of angina Comment: Stable. Continue Imdur (4) Anxiety Current Visit: No Status: Chronic Code(s): F41.9 - ANXIETY DISORDER, UNSPECIFIED SNOMED Code(s): 33365192 Comment: - Continue gabapentin and lorazepam
[2018-12-24] MEDS ORDERED: OLANzapine TAB* 10 MG PO SCH (21:00)
[2018-12-24] MEDS: Melatonin 3 MG TAB PO SCH (21:14)
[2018-12-24] MEDS: Mirtazapine TAB* 15 MG PO SCH (21:14)
[2018-12-25] MEDS: Nicotine Inhaler* 10 MG AMP INH PRN ×3 (03:00→10:18)
[2018-12-25] MEDS: DOXYcycline CAP(*) 100 MG PO SCH (08:05)
[2018-12-25] MEDS: Montelukast Sodium TAB* 10 MG PO SCH (08:05)
[2018-12-25] MEDS: Gabapentin CAP(*) 400 MG PO SCH (08:05)
[2018-12-25] MEDS: Lithium Carbonate TAB* 300 MG PO SCH (08:06)
[2018-12-25] MEDS: Pantoprazole TAB * 40 MG TAB PO SCH (08:06)
[2018-12-25] MEDS: predniSONE TAB* 20 MG PO SCH (08:06)
[2018-12-25] MEDS: amLODIPine TAB* 5 MG PO SCH (08:06)
[2018-12-25] MEDS: busPIRone TAB* 10 MG PO SCH (08:06)
[2018-12-25] MEDS: Isosorbide Mononitrate ER TAB* 30 MG PO SCH (08:06)
[2018-12-25 08:21] VITALS: BP 146/58
[2018-12-25 08:49] LABS: INR 1.35 (0.77-1.02)
[2018-12-25] MEDS: Mometasone/Formoter 200/5 MDI INH SCH (08:59)
[2018-12-25] MEDS: Albuterol/Ipratropium NEB.SOL* Albuterol 2.5 MG/Ipratropium 0.5 MG 3 ML INH PRN (08:59)
[2018-12-25] MEDS: Tiotropium CAP.INH* CAP.INH/18 MCG (USE ORDER SET !) INH SCH (08:59)
[2018-12-25] MEDS ORDERED: Metoprolol Succinate XL TAB* 50 MG PO SCH (09:00)
[2018-12-25] MEDS ORDERED: Warfarin TAB(*) 6 MG PO ONE (17:00)
--- NOTE | 2018-12-26 01:51 | DS ---
CC: Dr. Tom Schrader* DISCHARGE SUMMARY: DATE OF ADMISSION: 12/23/18 DATE OF DISCHARGE: 12/25/18 PCP: Dr. Tom Schrader (The patient no longer sees him as she does not follow up in care). DISPOSITION: To home. CONDITION: Good. PRIMARY DIAGNOSIS: Anxiety, malingering. SECONDARY DIAGNOSES: 1. Chronic obstructive pulmonary disease, on home O2. 2. Hypertension. 3. Deep venous thrombosis, on anticoagulation. 4. Peripheral artery disease. 5. Coronary artery disease. 6. Schizoaffective disorder. PERTINENT STUDIES: Chest x-ray with hyperinflated and clear lungs. EKG normal sinus rhythm, rate 90, otherwise unremarkable. Laboratory data largely unremarkable. HISTORY OF PRESENT ILLNESS: A 63-year-old woman with COPD, on 2 L home O2, hypertension, coronary artery disease, schizoaffective disorder, anxiety, DVT, on anticoagulation, who is presenting to the emergency room with increase in her baseline shortness of breath for 2 days. She had a similar admission approximately 1 month ago with several prior admissions for same symptomatology. She is a persistent cigarette smoker and has generally even thought that her admissions are COPD exacerbations from cigarette smoking. She completed a course of prednisone and doxycycline a couple of weeks ago and reports good adherence to her other medications, although her INR resulted subtherapeutic on admission labs. She had denied upper respiratory infection symptoms and denied chest pain. HOSPITAL COURSE: Her labs are unremarkable. Her chest x-ray was normal because she appeared to have increasing work of breathing with oxygen requirement. She was admitted to medicine. It is likely that this daytime oxygen requirement is her baseline. She is documented to have a nocturnal oxygen requirement, but on discussion with the patient she reports that she just does not feel like wearing her oxygen during the day. She had been initiated on prednisone burst, but this was not continued as it was thought that this patient was not having a COPD exacerbation. On morning rounds, before the patient noticed this rider approaching, she was resting comfortably eating breakfast without increased work of breathing or accessory muscle use. When the patient noticed this interviewer approaching, she began to breathe deeply and pursed her lips and stated that she was short of breath. On discussion with the patient, she was asked if she comes to the hospital because she feels stressed at home and she reports yes that she has a pending move, has been fighting a lot with her son, and [place] and this makes her feel very stressed, which is according to the patient the reason that she comes to the hospital. On the day of discharge, the patient denied shortness of breath or wheezing. She denied chest pain. She reports baseline mild dyspnea on exertion, but otherwise 10- point review of systems is negative. On physical exam, the patient was afebrile, heart rate in the 60s, blood pressure 146/58, breathing 100% on 2 L. In general, a chronically ill- appearing woman with flat affect, possible intellectual disability. Neck: No JVD. Heart: Regular rate and rhythm. No murmurs, gallops, or rubs. Lungs: Mild expiratory wheeze diffusely, but with significantly improved air movement. DISCHARGE PLAN: The patient is to follow up with her crayon grader, although it is unclear she has ever attended a pulmonology clinic appointment. She was also referred to [facility] or to her prior PCP, whoever she feels more comfortable with. She was encouraged to follow up with her outpatient psychiatrist for further management of her anxiety. Care management and social work team made aware of her psychosocial stressors at home. HOME MEDICATIONS: There are no changes except the addition of doxycycline. She is not being discharged on a prednisone taper. For the medication list. 1. Metoprolol succinate 50 mg daily. 2. Doxycycline 100 mg twice a day for 2 weeks. 3. Nicotine inhaler 10 mg q.2 hours as needed for cravings. 4. Buspirone 10 mg orally twice a day. 5. Lorazepam 0.5 mg every 6 hours as needed for anxiety, not prescribed as she has this at home. 6. Hydroxyzine 50 mg p.o. q.i.d. p.r.n. anxiety. 7. Mirtazapine 50 mg p.o. at bedtime. 8. Gabapentin 400 mg b.i.d. 9. Olanzapine 10 mg daily. 10. Incruse Ellipta 1 inhalation daily. 11. Montelukast 10 mg p.o. daily. 12. DuoNeb nebulizer solution q.4 hours as needed for shortness of breath. 13. Albuterol metered dose inhaler q.2 hours as needed for shortness of breath. 14. [place] 300 mg b.i.d. 15. Atorvastatin 10 mg daily. 16. Nexium 40 mg daily. 17. Imdur 30 mg daily. 18. Amlodipine 10 mg daily. 19. Warfarin 5 mg daily. 20. Melatonin 3 mg at bedtime. The patient was given return precautions. She is to resume regular diet, normal level of activity. She is to think about ways of managing her stress at home or using the hospital social worker provided to her without coming to the hospital given risks of hospitalization. TIME SPENT: Approximately 30 minutes spent on discharge of this patient more than half of which was spent with care coordination at bedside for interview and exam. [id number]/[facility] #: [id number] ANNITA
== END 2018-12-25 11:50 | disposition home or self-care (01) | DRG 880 ==
LOC: ED 10:47 → MED 14:20
PROVIDERS: ADMIT Internal Medicine; ATTEND Internal Medicine
DX: F41.9 Anxiety disorder, unspecified (principal); J96.21 Acute and chronic respiratory failure with hypoxia; J44.1 Chronic obstructive pulmonary disease with (acute) exacerbation; R79.1 Abnormal coagulation profile; I10 Essential (primary) hypertension; I25.10 Atherosclerotic heart disease of native coronary artery without angina pectoris; F25.9 Schizoaffective disorder, unspecified; E78.00 Pure hypercholesterolemia, unspecified; F17.210 Nicotine dependence, cigarettes, uncomplicated; K21.9 Gastro-esophageal reflux disease without esophagitis; K58.9 Irritable bowel syndrome, unspecified; R19.7 Diarrhea, unspecified; F32.9 Major depressive disorder, single episode, unspecified; Z99.81 Dependence on supplemental oxygen; Z76.5 Malingerer [conscious simulation]; Z88.1 Allergy status to other antibiotic agents; Z88.0 Allergy status to penicillin; Z88.8 Allergy status to other drugs, medicaments and biological substances; Z86.718 Personal history of other venous thrombosis and embolism; Z90.49 Acquired absence of other specified parts of digestive tract; Z82.49 Family history of ischemic heart disease and other diseases of the circulatory system; Z81.8 Family history of other mental and behavioral disorders; Z90.89 Acquired absence of other organs; Z83.6 Family history of other diseases of the respiratory system; Z79.01 Long term (current) use of anticoagulants
CPT/HCPCS: 36415; 71046; 80048; 80053; 83605; 83735; 84484; 85025; 85379; 85610; 87040; 93005; 94640; 99284; A9270-GY; J3475; J7512

== ENCOUNTER 2019-02-02 23:42 | Emergency (ER) | payer MEDICARE, MEDICAID ==
[2019-02-03] MEDS ORDERED: Albuterol/Ipratropium NEB.SOL* Albuterol 2.5 MG/Ipratropium 0.5 MG 3 ML INH ONE (00:50)
[2019-02-03] MEDS ORDERED: methylPREDNISolone 125 MG* 2 ML VIAL IV ONE (00:50)
[2019-02-03] MEDS ORDERED: Magnesium Sulfate 2 GM IV* 2 GM/50 ML BAG IVPB ONE (00:51)
[2019-02-03 01:27] LABS: ABS Eosinophils 0.4 10^3/ul (0-0.6); ABS Lymphocytes 1.4 10^3/ul (1.0-4.8); ABS Monocytes 0.4 10^3/ul (0-0.8); ABS Neutrophils 4.1 10^3/ul (1.5-7.7); Eosinophil % 6.2 %; Hematocrit 37 % (35-47); Hemoglobin 11.7 g/dL (12.0-16.0); Lymphocyte % 22.6 %; Mean Corpuscular HGB Conc 32 g/dL (31-36); Mean Corpuscular Hemoglobin 26 pg (27-31); Mean Corpuscular Volume 83 fL (80-97); Mean Platelet Volume 8.5 fL (7.4-10.4); Platelet Count 140 10^3/uL (150-450); Red Blood Count 4.41 10^6 /uL (3.70-4.87); Red Cell Distribution Width 16 % (10.5-15); White Blood Count 6.4 10^3/uL (3.5-10.8)
[2019-02-03] MEDS ORDERED: Albuterol 2.5 MG/3 ML NEB.SOL* (0.083%) INH ONE (01:33)
--- NOTE | 2019-02-03 01:33 | ED ---
Shortness of Breath - HPI Summary HPI Summary: Patient is a 63 y/o F presenting to ED via EMS with complaints of SOB, nonproductive cough, and chest pain. Sx onset in the morning, 02/02/19. Patient has home o2, 2 liters. PMHx of COPD. Sx are reported to have been present throughout the day. Chest pain is described as a tightness. Patient states that the chest pain has been minimal. Fever is denied. Patient is on warfarin due to Hx of blood clots. She notes that she used home nebulizer and inhaler but experienced no relief in Sx. On triage, pain is rated 5/10, nothing is noted to aggravate/alleviate Sx. Home medications and allergies are reviewed. - History of Current Complaint Chief Complaint: EDShortnessOfBreath Time Seen by Provider: 02/03/19 00:37 Hx Obtained From: Patient Onset/Duration: Lasting Hours, Still Present Timing: Constant Current Severity: Moderate Aggrevating Factors: Nothing Alleviating Factors: Nothing Associated Signs & Symptoms: Cough (Nonproductive), Chest Pain Unrelated to Cough - Allergy/Home Medications Allergies/Adverse Reactions: Allergies Allergy/AdvReac Type Severity Reaction Status Date / Time bupropion [From Wellbutrin] Allergy Agitation Verified 02/02/19 23:49 Cephalosporins Allergy Agitation Verified 02/02/19 23:49 chlorproethazine Allergy Agitation Verified 02/02/19 23:49 erythromycin base Allergy Diarrhea Verified 02/02/19 23:49 Penicillins Allergy Hives Verified 02/02/19 23:49 tobramycin Allergy Diarrhea Verified 02/02/19 23:49 doxycycline AdvReac Severe See Comment Verified 02/02/19 23:49 PMH/Surg Hx/FS Hx/Imm Hx Endocrine/Hematology History: Reports: Hx Anticoagulant Therapy, Hx Anemia, Other Endocrine/Hematological Disorders - L leg DVT Denies: Hx Diabetes, Hx Systemic Lupus Erythematosus, Hx Thyroid Disease Cardiovascular History: Reports: Hx Angina, Hx Coronary Artery Disease, Hx Deep Vein Thrombosis, Hx Hypercholesterolemia, Hx Hypertension, Hx Peripheral Vascular Disease, Other Cardiovascular Problems/Disorders - PERIPHERAL ARTERY DISEASE; CAD; DVT Denies: Hx Auto Implanted Cardiovert Defib, Hx Congestive Heart Failure, Hx Pacemaker/ICD Respiratory History: Reports: Hx Asthma, Hx Chronic Bronchitis, Hx Chronic Obstructive Pulmonary Disease (COPD) - 2L at home, Hx Pneumonia, Hx Seasonal Allergies, Other Respiratory Problems/Disorders - PNA Denies: Hx Cystic Fibrosis, Hx Lung Cancer, Hx Pleural Effusion, Hx Pulmonary Edema, Hx Pulmonary Embolism, Hx Sleep Apnea GI History: Reports: Hx Gall Bladder Disease - removed, Hx Gastroesophageal Reflux Disease, Hx Irritable Bowel, Other GI Disorders - hernia repair X 2 Denies: Hx Cirrhosis, Hx Crohn's Disease, Hx Diverticulosis History: Denies: Hx Dialysis, Hx Renal Disease Musculoskeletal History: Denies: Hx Arthritis, Hx Rheumatoid Arthritis, Hx Osteoporosis Sensory History: Denies: Hx Contacts or Glasses, Hx Glaucoma, Hx Deafness, Hx Hearing Aid, Hx Hearing Problem Opthamlomology History: Denies: Hx Contacts or Glasses, Hx Glaucoma Neurological History: Denies: Hx Headaches, Hx Seizures, Hx Transient Ischemic Attacks (TIA) Psychiatric History: Reports: Hx Anxiety, Hx Depression, Hx Inpatient Treatment , Hx Community Mental Health Tx, Hx Schizophrenia, Hx Bipolar Disorder, Hx Suicide Attempt Denies: Hx Eating Disorder, Hx Panic Disorder, Hx of Violent Episodes Against Others - Cancer History Hx Chemotherapy: No - Surgical History Surgery Procedure, Year, and Place: bilat thumb repairs, hernia repairs X 2, cholecystectomy, appendectomy Hx Anesthesia Reactions: No - Immunization History Date of Tetanus Vaccine: UTD Date of Influenza Vaccine: 06/2018 Infectious Disease History: No Infectious Disease History: Denies: Hx Clostridium Difficile, Hx Hepatitis, Hx Human Immunodeficiency Virus (HIV), Hx of Known/Suspected MRSA, Hx Shingles, Hx Tuberculosis, Traveled Outside the [place] in Last 30 Days - Family History Known Family History: Positive: Cardiac Disease - [place], Other - schizophrenia, anxiety Negative: Hypertension, Diabetes Family History: Negative HTN/DM per EMR - Social History Alcohol Use: Occasionally Hx Substance Use: No Substance Use Type: Reports: None Hx Tobacco Use: Yes Smoking Status (MU): Current Every Day Smoker Type: Cigarettes Amount Used/How Often: 1 PPD Have You Smoked in the Last Year: Yes Review of Systems Negative: Fever Positive: Chest Pain Positive: Shortness Of Breath, Cough All Other Systems Reviewed And Are Negative: Yes Physical Exam - Summary Physical Exam Summary: VITAL SIGNS: Reviewed. GENERAL: Patient is a well-developed and nourished female who is lying comfortable in the stretcher. Patient is not in any acute respiratory distress. HEAD AND FACE: No signs of trauma. No ecchymosis, hematomas or skull depressions. No sinus tenderness. EYES: PERRLA, EOMI x 2, No injected conjunctiva, no nystagmus. EARS: Hearing grossly intact. Ear canals and tympanic membranes are within normal limits. MOUTH: Oropharynx within normal limits. NECK: Supple, trachea is midline, no adenopathy, no JVD, no carotid bruit, no c- spine tenderness, neck with full ROM CHEST: Symmetric, no tenderness at palpation LUNGS: Bilateral expiratory wheezes. CVS: Regular rate and rhythm, S1 and S2 present, no murmurs or gallops appreciated. ABDOMEN: Soft, non-tender. No signs of distention. No rebound no guarding, and no masses palpated. Bowel sounds are normal. EXTREMITIES: FROM in all major joints, no cyanosis or clubbing. Trace BLE edema NEURO: Alert and oriented x 3. No acute neurological deficits. Speech is normal and follows commands. SKIN: Dry and warm Triage Information Reviewed: Yes Vital Signs On Initial Exam: Initial Vitals Temp Pulse Resp BP Pulse Ox 98.3 F 71 23 152/95 97 02/02/19 23:46 02/02/19 23:46 02/02/19 23:46 02/02/19 23:46 02/02/19 23:46 Vital Signs Reviewed: Yes Diagnostics - Vital Signs Vital Signs Temp Pulse Resp BP Pulse Ox 02/03/19 01:31 70 18 99 02/03/19 00:00 63 29 97 02/02/19 23:49 71 31 97 02/02/19 23:46 98.3 F 69 19 152/95 97 - Laboratory Lab Results: Lab Results 02/03/19 Range/Units 01:20 WBC 6.4 (3.5-10.8) 10^3/uL RBC 4.41 (3.70-4.87) 10^6 /uL Hgb 11.7 L (12.0-16.0) g/dL Hct 37 (35-47) % MCV 83 (80-97) fL MCH 26 L (27-31) pg MCHC 32 (31-36) g/dL RDW 16 H (10.5-15) % Plt Count 140 L (150-450) 10^3/uL MPV 8.5 (7.4-10.4) fL Neut % (Auto) 63.8 % Lymph % (Auto) 22.6 % Harvey % (Auto) 6.9 % Eos % (Auto) 6.2 % Baso % (Auto) 0.5 % Absolute Neuts (auto) 4.1 (1.5-7.7) 10^3/ul Absolute Lymphs (auto) 1.4 (1.0-4.8) 10^3/ul Absolute Monos (auto) 0.4 (0-0.8) 10^3/ul Absolute Eos (auto) 0.4 (0-0.6) 10^3/ul Absolute Basos (auto) 0.0 (0-0.2) 10^3/ul Absolute Nucleated RBC 0.0 10^3/ul Nucleated RBC % 0.0 Result Diagrams: 02/03/19 01:20 02/03/19 01:20 Lab Statement: Any lab studies that have been ordered have been reviewed, and results considered in the medical decision making process. - Radiology CXR Radiology Interpretation Completed By: ED Physician Summary of Radiographic Findings: No acute process, pending official report. - EKG 0105 Cardiac Rate: NL - rate of 63 BPM EKG Rhythm: Sinus Rhythm Summary of EKG Findings: EKG showed sinus rhythm with rate of 63 BPM, normal axis, normal intervals, no ischemic changes. Re-Evaluation - Re-Evaluation First Eval Re-Evaluation Time: 02:04 Change: Improved Comment: Patient is improved after medications. Results of labs and tests were discussed. She will be discharged to home, she is agreeable with this. Strict return precautions given. Course/Dx - Course Course Of Treatment: Patient is a 63 y/o F presenting to ED via EMS with complaints of SOB, nonproductive cough, and chest pain. Sx onset in the morning , 02/02/19. Patient has home o2, 2 liters. PMHx of COPD. Sx are reported to have been present throughout the day. Chest pain is described as a tightness. Patient states that the chest pain has been minimal. Fever is denied. Patient is on warfarin due to Hx of blood clots. She notes that she used home nebulizer and inhaler but experienced no relief in Sx. On physical exam, BLE trace edema, bilateral expiratory wheezes. CXR no acute process. EKG showed NSR with rate of 63 BPM, normal axis, normal interval, no ischemic changes. Labs showed Hgb 11.7, MCH 26, RDW 16, plt count 140, INR 2.09, APTT 44.4, creatinine 1.18, AST 12, trop 0, CRP 2.51, total protein 6. During ED course, patient received solu- medrol 125 mg IV, magnesium sulfate 2 gm in 50 mls @ 50 mls/hr IVPB, duoneb 1 neb INH, and albuterol 2.5 mg INH, 2 doses. Patient is improved after medications. Results of labs and tests were discussed. She will be discharged to home, she is agreeable with this. Strict return precautions given. - Diagnoses Provider Diagnoses: COPD exacerbation Discharge - Sign-Out/Discharge Documenting (check all that apply): Patient Departure - discharge Patient Received Moderate/Deep Sedation with Procedure: No - Discharge Plan Condition: Stable Disposition: HOME Prescriptions: predniSONE TAB* [Deltasone TAB*] 50 mg PO DAILY #5 tab Patient Education Materials: COPD (Chronic Obstructive Pulmonary Disease) (ED) Referrals: Tom Schrader MD [Primary Care Provider] - 3 Days Additional Instructions: PLEASE RETURN TO THE ED IMMEDIATELY FOR WORSENING OR CONCERNING SYMPTOMS. FOLLOW UP WITH YOUR PRIMARY CARE PHYSICIAN WITHIN THREE DAYS. - Attestation Statements Document Initiated by Scribe: Yes Documenting Scribe: NGHIA MALIN Provider For Whom [facility] is Documenting (Include Credential): JILLIAN GONZALEZ MD Scribe Attestation: NGHIA Laboy, scribed for JILLIAN GONZALEZ MD on 02/03/19 at 0353. Status of Scribe Document: Ready
[2019-02-03] MEDS: Albuterol 2.5 MG/3 ML NEB.SOL* (0.083%) INH SCH ×2 (01:39→01:57)
[2019-02-03 01:40] LABS: Activated Partial Thrombo Time 44.4 seconds (26.0-36.3); INR 2.09 (0.82-1.09)
[2019-02-03 01:49] LABS: Albumin 3.8 g/dL (3.2-5.2); Albumin/Globulin Ratio 1.7 (1-3); BUN/Creatinine Ratio 14.4 (8-20); C Reactive Protein 2.51 mg/L (<8.01); Calcium 10.1 mg/dL (8.6-10.3); EGFR African American 56.3 (>60); EGFR Non-African American 46.6 (>60); Globulin 2.2 g/dL (2-4); Potassium 4.3 mmol/L (3.5-5.0); Total Bilirubin 0.4 mg/dL (0.2-1.0)
[2019-02-03 02:19] VITALS: BP 126/63
== END 2019-02-03 02:18 | disposition home or self-care (01) ==
LOC: ED 23:42
DX: J44.1 Chronic obstructive pulmonary disease with (acute) exacerbation (principal); R05 Cough; R07.9 Chest pain, unspecified; Z88.0 Allergy status to penicillin; Z79.01 Long term (current) use of anticoagulants; I25.10 Atherosclerotic heart disease of native coronary artery without angina pectoris; Z86.718 Personal history of other venous thrombosis and embolism; F17.210 Nicotine dependence, cigarettes, uncomplicated
CPT/HCPCS: 36415; 71045; 80053; 83880; 84484; 85025; 85610; 85730; 86140; 87040; 93005; 96365; 96375; 99283; A9270-GY; J2930; J3475

== ENCOUNTER 2019-06-05 17:26 | Emergency (ER) | payer MEDICARE, MEDICAID ==
[2019-06-05] MEDS ORDERED: methylPREDNISolone 125 MG* 2 ML VIAL IV ONE (18:16)
[2019-06-05] MEDS ORDERED: Albuterol/Ipratropium NEB.SOL* Albuterol 2.5 MG/Ipratropium 0.5 MG 3 ML INH ONE (18:17)
[2019-06-05 18:31] LABS: ABS Eosinophils 0.4 10^3/ul (0-0.6); ABS Lymphocytes 1.3 10^3/ul (1.0-4.8); ABS Monocytes 0.4 10^3/ul (0-0.8); ABS Neutrophils 4.3 10^3/ul (1.5-7.7); Eosinophil % 5.9 %; Hematocrit 36 % (35-47); Hemoglobin 11.7 g/dL (12.0-16.0); Lymphocyte % 20.6 %; Mean Corpuscular HGB Conc 32 g/dL (31-36); Mean Corpuscular Hemoglobin 27 pg (27-31); Mean Corpuscular Volume 85 fL (80-97); Mean Platelet Volume 8.6 fL (7.4-10.4); Platelet Count 146 10^3/uL (150-450); Red Blood Count 4.29 10^6 /uL (3.70-4.87); Red Cell Distribution Width 16 % (10-15); White Blood Count 6.4 10^3/uL (3.5-10.8)
--- NOTE | 2019-06-05 18:34 | ED ---
Shortness of Breath - HPI Summary HPI Summary: 63-year-old female presents with shortness breath today. States the past couple days she has been having a cough and sinus congestion. She states her symptoms have been getting worse over the past day. She states she took a breathing treatment at home at time she got here her symptoms are pretty much resolved. States she is feeling better. Denies any fevers. She admits to a little bit of an earache. No one else around her is sick. No bowel pain. No nausea and vomiting. States chest feels like a tightness. Has a history of COPD. Is on blood thinners. is on 2 liters at home. - History of Current Complaint Chief Complaint: EDShortnessOfBreath Time Seen by Provider: 06/05/19 17:56 - Allergy/Home Medications Allergies/Adverse Reactions: Allergies Allergy/AdvReac Type Severity Reaction Status Date / Time bupropion [From Wellbutrin] Allergy Agitation Verified 02/02/19 23:49 Cephalosporins Allergy Agitation Verified 02/02/19 23:49 chlorproethazine Allergy Agitation Verified 02/02/19 23:49 erythromycin base Allergy Diarrhea Verified 02/02/19 23:49 Penicillins Allergy Hives Verified 02/02/19 23:49 tobramycin Allergy Diarrhea Verified 02/02/19 23:49 doxycycline AdvReac Severe See Comment Verified 02/02/19 23:49 Home Medications: Home Medications Acetaminophen TAB* [Tylenol TAB*] 650 mg PO Q4H PRN 06/05/19 [History Confirmed 06/05/19] Atorvastatin* [Lipitor 10 MG*] 10 mg PO BEDTIME 06/05/19 [History Confirmed ] Gabapentin CAP(*) [Neurontin 300 CAP(*)] 300 mg PO BEDTIME 06/05/19 [History Confirmed 06/05/19] Metoprolol Succinate XL TAB* [Toprol XL TAB*] 25 mg PO BID 06/05/19 [History Confirmed 06/05/19] Umeclidin/Vilant 62.5 MDI(NF) [ANORO 62.5/25 Ellipta DEVICE (NF)] 1 puff INH DAILY 06/05/19 [History Confirmed 06/05/19] Warfarin TAB(*) [Coumadin TAB(*)] 4.5 mg PO DAILY 06/05/19 [History Confirmed ] PMH/Surg Hx/FS Hx/Imm Hx Endocrine/Hematology History: Reports: Hx Anticoagulant Therapy, Hx Anemia, Other Endocrine/Hematological Disorders - L leg DVT Denies: Hx Diabetes, Hx Systemic Lupus Erythematosus, Hx Thyroid Disease Cardiovascular History: Reports: Hx Angina, Hx Coronary Artery Disease, Hx Deep Vein Thrombosis, Hx Hypercholesterolemia, Hx Hypertension, Hx Peripheral Vascular Disease, Other Cardiovascular Problems/Disorders - PERIPHERAL ARTERY DISEASE; CAD; DVT Denies: Hx Auto Implanted Cardiovert Defib, Hx Congestive Heart Failure, Hx Pacemaker/ICD Respiratory History: Reports: Hx Asthma, Hx Chronic Bronchitis, Hx Chronic Obstructive Pulmonary Disease (COPD) - 2L at home, Hx Pneumonia, Hx Seasonal Allergies, Other Respiratory Problems/Disorders - PNA Denies: Hx Cystic Fibrosis, Hx Lung Cancer, Hx Pleural Effusion, Hx Pulmonary Edema, Hx Pulmonary Embolism, Hx Sleep Apnea GI History: Reports: Hx Gall Bladder Disease - removed, Hx Gastroesophageal Reflux Disease, Hx Irritable Bowel, Other GI Disorders - hernia repair X 2 Denies: Hx Cirrhosis, Hx Crohn's Disease, Hx Diverticulosis History: Denies: Hx Dialysis, Hx Renal Disease Musculoskeletal History: Denies: Hx Arthritis, Hx Rheumatoid Arthritis, Hx Osteoporosis Sensory History: Denies: Hx Contacts or Glasses, Hx Glaucoma, Hx Deafness, Hx Hearing Aid, Hx Hearing Problem Opthamlomology History: Denies: Hx Contacts or Glasses, Hx Glaucoma Neurological History: Denies: Hx Headaches, Hx Seizures, Hx Transient Ischemic Attacks (TIA) Psychiatric History: Reports: Hx Anxiety, Hx Depression, Hx Inpatient Treatment , Hx Community Mental Health Tx, Hx Schizophrenia, Hx Bipolar Disorder, Hx Suicide Attempt Denies: Hx Eating Disorder, Hx Panic Disorder, Hx of Violent Episodes Against Others - Cancer History Hx Chemotherapy: No - Surgical History Surgery Procedure, Year, and Place: bilat thumb repairs, hernia repairs X 2, cholecystectomy, appendectomy Hx Anesthesia Reactions: No - Immunization History Date of Tetanus Vaccine: UTD Date of Influenza Vaccine: 06/2018 Infectious Disease History: No Infectious Disease History: Denies: Hx Clostridium Difficile, Hx Hepatitis, Hx Human Immunodeficiency Virus (HIV), Hx of Known/Suspected MRSA, Hx Shingles, Hx Tuberculosis, Traveled Outside the [place] in Last 30 Days - Family History Known Family History: Positive: Cardiac Disease - [place], Other - schizophrenia, anxiety Negative: Hypertension, Diabetes Family History: Negative HTN/DM per EMR - Social History Alcohol Use: Rare Hx Substance Use: No Substance Use Type: Reports: None Hx Tobacco Use: Yes Smoking Status (MU): Current Every Day Smoker Type: Cigarettes Amount Used/How Often: 1 PPD Have You Smoked in the Last Year: Yes Review of Systems Negative: Fever Positive: Ear Ache, Nasal Discharge Positive: Chest Pain Positive: Shortness Of Breath, Cough All Other Systems Reviewed And Are Negative: Yes Physical Exam Triage Information Reviewed: Yes Vital Signs On Initial Exam: Initial Vitals Temp Pulse Resp BP Pulse Ox 98.2 F 80 16 117/62 97 06/05/19 17:37 06/05/19 17:37 06/05/19 17:37 06/05/19 17:37 06/05/19 17:37 Vital Signs Reviewed: Yes Appearance: Positive: Well-Appearing Skin: Positive: Warm, Dry Head/Face: Positive: Normal Head/Face Inspection Eyes: Positive: Normal, EOMI, CRISTIAN, Conjunctiva Clear ENT: Positive: Normal ENT inspection, Pharynx normal, TMs normal Respiratory/Lung Sounds: Positive: Decreased Breath Sounds, Wheezes Cardiovascular: Positive: Normal, RRR Abdomen Description: Positive: Nontender, Soft Bowel Sounds: Positive: Present Musculoskeletal: Positive: Normal Neurological: Positive: Normal Psychiatric: Positive: Normal Diagnostics - Vital Signs Vital Signs Temp Pulse Resp BP Pulse Ox 06/05/19 18:24 16 06/05/19 17:39 80 28 117/62 97 06/05/19 17:37 98.2 F 80 16 117/62 97 - Laboratory Result Diagrams: 06/05/19 18:24 06/05/19 18:24 Lab Statement: Any lab studies that have been ordered have been reviewed, and results considered in the medical decision making process. - Radiology chest Radiology Interpretation Completed By: ED Physician Summary of Radiographic Findings: no pneumonia - EKG No standard instances Cardiac Rate: NL EKG Rhythm: Sinus Rhythm Summary of EKG Findings: sinus rhythm Re-Evaluation - Re-Evaluation First Eval Re-Evaluation Time: 19:29 Change: Improved Comment: lungs CTA Course/Dx - Course Course Of Treatment: 63-year-old female presents with shortness breath today. States the past couple days she has been having a cough and sinus congestion. She states her symptoms have been getting worse over the past day. She states she took a breathing treatment at home at time she got here her symptoms are pretty much resolved. States she is feeling better. Denies any fevers. She admits to a little bit of an earache. No one else around her is sick. No bowel pain. No nausea and vomiting. States chest feels like a tightness. Has a history of COPD. Is on blood thinners. is on 2 liters at home. On exam has decreased breath sounds and wheezing heard. Pharynx normal. Sinus congestion noted. EKG shows sinus rhythm. wbc normal. troponin normal. d-dimer neg. chest xray no pneumonia. gave breathing treatment and solumedrol and feeling better. Will treat as COPD with steroid and azithromycin. Patient understands and agrees the plan. - Diagnoses Differential Diagnosis/HQI/PQRI: Positive: Bronchitis, COPD Exacerbation, Pneumonia Provider Diagnoses: COPD (chronic obstructive pulmonary disease) Discharge ED - Sign-Out/Discharge Documenting (check all that apply): Patient Departure Patient Received Moderate/Deep Sedation with Procedure: No - Discharge Plan Condition: Good Disposition: HOME Prescriptions: Azithromycin TAB* [Zithromax TAB (Z-DAVID) 250 mg #6 tabs] 250 mg PO DAILY #4 tab predniSONE TAB* [Deltasone TAB*] 50 mg PO DAILY #4 tab Patient Education Materials: COPD (Chronic Obstructive Pulmonary Disease) (ED) Referrals: Tom Schrader MD [Primary Care Provider] - Additional Instructions: Use nebulizer every 4 hours for cough and wheezing Take steroid once a day for 4 more days starting tomorrow Take antibiotic once daily starting tomorrow for 4 days Take Tylenol for pain every 6 hours Follow up with primary within 5 days Return to ED if develop severe shortness of breath, worsening chest pain, or any new or worsening symptoms - Billing Disposition and Condition Condition: GOOD Disposition: Home
[2019-06-05 18:50] LABS: Albumin 3.8 g/dL (3.2-5.2); Albumin/Globulin Ratio 1.7 (1-3); BUN/Creatinine Ratio 20.5 (8-20); C Reactive Protein 2.09 mg/L (<8.01); Calcium 9.6 mg/dL (8.6-10.3); EGFR Non-African American 65.3 (>60); Globulin 2.2 g/dL (2-4); Total Bilirubin 0.2 mg/dL (0.2-1.0)
[2019-06-05 19:12] LABS: INR 1.85 (0.82-1.09)
--- OUTSIDE RECORDS SUMMARY | 2019-06-05 19:13 | XMS REPORT | Continuity of Care Document ---
:1955 External Reference #:[id number] Author Name Swetha Servin NP Address [address] [place] [address] Problems Active Problems Provider Date Chronic obstructive lung disease Dino Galloway M.D. Onset: 11/13/2007 Disorder of cardiovascular system Dino Galloway M.D. Onset: 01/27/2010 Gastroesophageal reflux disease Dino Galloway M.D. Onset: 01/27/2010 Backache Dino Galloway M.D. Onset: 02/28/2010 Embolism from thrombosis of vein of distal Tom Schrader M.D. Onset: lower extremity Headache Tom Schrader M.D. Onset: 09/27/2011 Candidiasis of mouth Joan Muro Onset: 10/18/2011 Acute bronchitis Joan Muro Onset: 10/18/2011 Acute sinusitis Tom Schrader M.D. Onset: 11/08/2011 Anticoagulant agent Tom Schrader M.D. Onset: 04/10/2012 Malaise and fatigue Tom Schrader M.D. Onset: 04/10/2012 Urinary incontinence Tom Schrader M.D. Onset: 11/06/2012 Low back pain Tom Schrader M.D. Onset: 01/27/2013 Skin sensation disturbance Tom Schrader M.D. Onset: 04/02/2013 Bipolar disorder Tom Schrader M.D. Onset: 02/15/2015 Sciatica Tom Schrader M.D. Onset: 03/15/2016 Long-term current use of anticoagulant Tom Schrader M.D. Onset: 2016 Knee pain Tom Schrader M.D. 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 Onset: (acute) lower respiratory infection Tobacco user Tom Schrader M.D. Onset: 04/15/2018 Social History Type Date Description Comments Sex Unknown Tobacco Use Start: Unknown Current Cigarette Smoker 1/2 ppd , has quit once for 6mos. Tobacco Use Start: Unknown Patient is a current 1 pk q couple weeks smoker, smokes some days Smoking Status Reviewed: 06/21/18 Patient is a current 1 pk q couple weeks smoker, smokes some days Allergies, Adverse Reactions, Alerts Active Allergies Reaction Severity Comments Date Penicillin Tobrex Sensitivity 07/07/1998 Keflex 09/24/2002 Biaxin Vomiting And Diarrhea 10/10/2003 Vioxx Diarrhea /Stomach Cramps 01/07/2004 Naproxen Diarrhea 01/14/2004 Advair Caused Involuntary Shaking 03/09/2004 Oxycodone Urticaria 01/13/2011 Wellbutrin 01/12/2016 Medications Active Medications SIG Qnty Indications Ordering Date Provider Gabapentin one or two by mouth 60caps Swetha C. 05/28/2019 300mg at bedtime DAHIANA Servin Capsules Lubricant Eye Drops 2 gtts per right 30units H10.89 Roseanne 04/12/2019 (PF) eye qid prn Amirah, MELLOWING MACHINE OPERATOR 0.4-0.3% irritation due to Solution conjunctival hemorrhage Anoro Ellipta use as directed 60units Sania 02/11/2019 once daily [place], 62.5-25mcg/Inh Afnp-C Aerosol Morphine Sulfate 0.5 milliliters 30ml Cee Polly 06/18/2018 (Concentrate) every 3 hour as DAHIANA Solorio 20mg/ml needed sob Solution Note needs overnight Tom Wright 05/01/2018 oximetry to Win Schrader determine o2 utilization [place] Maximum use as directed for 1Pack Roseanne 03/23/2018 Absorbency urinary Amirah, MELLOWING MACHINE OPERATOR Pads incontinence - dx: n39.3, dispense #90, 3 per day Note daina funk is Tom Wright 02/26/2018 capable of being Elba Schrader. her own payee for social security dt Note daina Santos Adriana 02/19/2018 is capable of Win Schrader being her own payee for social security dt Nebulizer Set Up And disp one for 1units Tom Wright 02/07/2018 Tubing lifetime use at Win Schrader home, dx: intermittent copd dx j44.9 last office visit 03/05/19 Saline Nasal [place] one spray in each 44ml Tom Wright 11/08/2017 nostril 3 times a Win Schrader 0.65% Solution day as needed for congestion Amlodipine Besylate 10 mg by mouth 30tabs Roseanne 11/05/2017 daily Amirah, MELLOWING MACHINE OPERATOR 10mg Tablets Olanzapine 1 by mouth at at 90tabs Swetha CPhil 08/13/2017 10mg bedtime Gareth, ADMINISTRATIVE JOB TITLES Tablets Alprazolam 1 every 8 hours as 45tabs Cee Ann 08/13/2017 0.25mg needed for anxiety Solorio, ADMINISTRATIVE JOB TITLES Tablets Triamcinolone apply thin film 30gm Tom Wright 08/13/2017 Acetonide twice a day on rash Win Schrader 0.5% Cream Remeron take 1 tablet by 30tabs Tom Wright 08/13/2017 15mg Tablets mouth at bedtime Win Schrader [place] Carbonate take 1 capsule by 180caps Tom Wright 08/13/2017 mouth two times Win Schrader 300mg Capsules daily Duoneb use once every 4 90ml J44.0 Tom Zaragoza 05/23/2017 hours as needed sob MD Flash 0.5-2.5(3)mg/3ML Solution Warfarin Sodium take 1 1/2 (4.5mg) 45tabs Brinda Hyde 02/27/2017 3mg by mouth daily MELLOWING MACHINE OPERATOR Tablets Breo Ellipta 1 puff every day 90units Tom Zaragoza 11/13/2016 MD Flash 200-25mcg/Inh Aerosol Incruse Ellipta 1 puff daily for 90units Tom Wright 11/04/2016 copd Win Schrader 62.5mcg/Inh Aerosol Antacid Regular Take 5mL by mouth 1200ml Tom Wright 08/25/2016 Strength daily Win Schrader [phone]/5ML Suspension Hydrocodone-Acetamin 1 every-6 hours as 60tabs Tom Wright 03/15/2016 ophen needed for pain Win Schrader 5-325mg Tablets Isosorbide 1 by mouth every 90tabs Tom Wright 02/11/2016 Mononitrate ER day Win Schrader 30mg Tablets ER 24HR Lipitor 1 by mouth every 30tabs Tom Wright 02/09/2016 10mg Tablets day Win Schrader Gabapentin take 2 capsule by 120caps Tom Wright 01/12/2016 100mg mouthtwice a day Win Schrader Capsules Fluticasone 2 sprays each 16units Tom Wright 11/19/2015 Propionate nostril every day Win Schrader 50mcg/Act Suspension Singulair take one tablet by 90tabs J44.9 Tom Wright 10/05/2015 10mg mouth once daily Win Schrader Tablets Maalox Regular use 1 tablespoon 1BLT Brinda Hyde, 08/13/2014 Strength daily MELLOWING MACHINE OPERATOR 020-884-30mo/5ML Suspension Bed Pads use daily as 1Box Ada Faulkner, 09/19/2013 Extra Large directed dx n39.3 M.DPhil last office visit 01/21/18 FQ Prevail Protect Use Four Times A 128units Tom Wright 06/19/2013 Underwear Day Win Schrader Proair HFA use 2 puffs every 4 8.5units Tom Wright 04/16/2013 hours as needed For Win Schrader 108(90Base) mcg/Act Rescue Aerosol Underpads 300 medicaid id # [id number] Tom Wright 01/01/2013 [id number], size Win Schrader xlarge, ht 5'3", wt 228, hip 52, waist 48; Urinary Incontinence Dx: 788.30, 596.59, 788.31 Depends as directed 4Cases Brinda Hyde, 10/10/2012 (x-large) dx:788.30 MELLOWING MACHINE OPERATOR height= 5'3" vsdewx=719# hip = 52" waist = 48.5" uses 8/day Incontinence Pads size large (23 x 1BX Marilin Yanes, 04/12/2011 36) use daily Afnp-C Height=5'3" Weight=#228 Hip = 52" Waist = 48.5" dx= 788.31 Metoprolol Tartrate take 1 tablet twice 180tabs Roseanne 12/21/2010 a day DALE Macario 25mg Tablets Nexium take one capsule by sheldon Wright 12/22/2005 40mg Capsules mouth once daily Win Schrader DR Prednisolone Sodium Unknown Phosphate 10mg/5ML Solution Immunizations CPT Code Status Date Vaccine Reaction Lot # [id number] Given 07/25/2016 Influenza Vac, Quadrivalent, [id number] [address] Given 07/21/2015 Pneumococcal Conjugate [id number] Vacc-13 89464 Given 07/07/2015 Influenza Vac, Quadrivalent, [id number] [address] Given 06/17/2014 DO Not Use Split Influenza Virus Vaccine [id number] Given 05/28/2013 Split Influenza Medicare: [id number] Fluzone Q2038 Given 06/20/2012 Split Influenza Medicare: no reaction noted [id number] Fluzone 19701 Given 05/23/2010 Pneumococcal Immunization [id number] 74565 Given 05/23/2010 DO Not Use Split Influenza [id number] Virus Vaccine 10618 Given 07/21/2008 DO Not Use Split Influenza [id number] Virus Vaccine Vital Signs Date Vital Result Comment 05/28/2019 11:27am BP Systolic 118 mmHg BP Diastolic 48 mmHg Heart Rate 80 /min Body Temperature 98.1 F Respiratory Rate 17 /min Weight 164.00 lb 04/12/2019 9:44am BP Systolic 98 mmHg BP Diastolic 46 mmHg Heart Rate 82 /min Body Temperature 97.8 F Respiratory Rate 18 /min O2 % BldC Oximetry 90 % Ra Weight 165.00 lb Results Test Date Facility Test Result H/L Range Note Laboratory test 04/12/2019 [facility] MRSA Screen SEE RESULT 1 finding BELOW Laboratory test 03/26/2019 [facility]) 2.9 2.0-3.0 finding (607)- - Laboratory test 03/05/2019 [facility] ([facility]) 2.8 2.0-3.0 finding (607)- - CBC Auto Diff 02/03/2019 [facility] [place] Blood 6.4 10^3/uL Normal 3.5-10.8 Count Red Blood Count 4.41 10^6/uL Normal 3.70-4.87 Hemoglobin 11.7 g/dL Low 12.0-16.0 Hematocrit 37 % Normal 35-47 Mean Corpuscular Volume 83 fL Normal 80-97 Mean Corpuscular Hemoglobin 26 pg Low 27-31 Mean Corpuscular HGB Conc 32 g/dL Normal 31-36 Red Cell Distribution Width 16 % High 10.5-15 Platelet Count 140 10^3/uL Low 150-450 Mean Platelet Volume 8.5 fL Normal 7.4-10.4 Abs Neutrophils 4.1 10^3/uL Normal 1.5-7.7 Abs Lymphocytes 1.4 10^3/uL Normal 1.0-4.8 Abs Monocytes 0.4 10^3/uL Normal 0-0.8 Abs Eosinophils 0.4 10^3/uL Normal 0-0.6 Abs Basophils 0.0 10^3/uL Normal 0-0.2 Abs Nucleated RBC 0.0 10^3/uL Granulocyte % 63.8 % Lymphocyte % 22.6 % Monocyte % 6.9 % Eosinophil % 6.2 % Basophil % 0.5 % Nucleated Red Blood Cells % 0.0 Inr/Protime 02/03/2019 [facility] [place] 2.09 High 0.82-1.09 2 Laboratory test 02/03/2019 [facility] Partial Thrombo 44.4 seconds High 26.0- 36.3 finding Time PTT B-Type Natriuretic Peptide BNP 57 pg/mL <=100 Comp Metabolic Panel 02/03/2019 [facility] Sodium 139 mmol/L Normal 135-145 Potassium 4.3 mmol/L Normal 3.5-5.0 Chloride 109 mmol/L Normal 101-111 Co2 Carbon Dioxide 28 mmol/L Normal 22-32 Anion Gap 2 mmol/L Normal 2-11 Glucose 95 mg/dL Normal 70-100 Blood Urea Nitrogen 17 mg/dL Normal 6-24 Creatinine 1.18 mg/dL High 0.51-0.95 BUN/Creatinine Ratio 14.4 Normal 8-20 Calcium 10.1 mg/dL Normal 8.6-10.3 Total Protein 6.0 g/dL Low 6.4-8.9 Albumin 3.8 g/dL Normal 3.2-5.2 Globulin 2.2 g/dL Normal 2-4 Albumin/Globulin Ratio 1.7 Normal 1-3 Total Bilirubin 0.40 mg/dL Normal 0.2-1.0 Alkaline Phosphatase 80 U/L Normal 34-104 Alt 9 U/L Normal 7-52 Ast 12 U/L Low 13-39 Egfr Non- 46.6 >60 Egfr 56.3 >60 3 Laboratory test finding 02/03/2019 [facility] C Reactive Protein 2.51 mg/L Normal <8.01 Troponin I 0.00 ng/mL <0.04 4 Blood Culture SEE RESULT BELOW 5 Laboratory test 12/23/2018 [facility] D Dimer Quantitative < 200 ng/mL Normal Less Than 6 finding 230 CBC Auto Diff 12/23/2018 [facility] White Blood Count 6.6 10^3/uL Normal 3.5- 10.8 Red Blood Count 4.41 10^6/uL Normal 3.70-4.87 Hemoglobin 12.0 g/dL Normal 12.0-16.0 Hematocrit 38 % Normal 33-41 Mean Corpuscular Volume 85 fL Normal 80-97 Mean Corpuscular Hemoglobin 27 pg Normal 27-31 Mean Corpuscular HGB Conc 32 g/dL Normal 31-36 Red Cell Distribution Width 17 % High 10.5-15 Platelet Count 183 10^3/uL Normal 150-450 Mean Platelet Volume 8.3 fL Normal 7.4-10.4 Abs Neutrophils 4.9 10^3/uL Normal 1.5-7.7 Abs Lymphocytes 1.1 10^3/uL Normal 1.0-4.8 Abs Monocytes 0.4 10^3/uL Normal 0-0.8 Abs Eosinophils 0.2 10^3/uL Normal 0-0.6 Abs Basophils 0 10^3/uL Normal 0-0.2 Abs Nucleated RBC 0 10^3/uL Granulocyte % 73.9 % Lymphocyte % 16.3 % Monocyte % 5.9 % Eosinophil % 3.5 % Basophil % 0.4 % Nucleated Red Blood Cells % 0 Laboratory test finding 12/23/2018 [facility] Lactic Acid 0.5 mmol/L Normal 0.5- 2.0 7 Comp Metabolic Panel 12/23/2018 [facility] Sodium 139 mmol/L Normal 135-145 Potassium 4.1 mmol/L Normal 3.5-5.0 Chloride 108 mmol/L Normal 101-111 Co2 Carbon Dioxide 27 mmol/L Normal 22-32 Anion Gap 4 mmol/L Normal 2-11 Glucose 88 mg/dL Normal 70-100 Blood Urea Nitrogen 8 mg/dL Normal 6-24 Creatinine 0.84 mg/dL Normal 0.51-0.95 BUN/Creatinine Ratio 9.5 Normal 8-20 Calcium 9.7 mg/dL Normal 8.6-10.3 Total Protein 6.2 g/dL Low 6.4-8.9 Albumin 3.8 g/dL Normal 3.2-5.2 Globulin 2.4 g/dL Normal 2-4 Albumin/Globulin Ratio 1.6 Normal 1-3 Total Bilirubin 0.40 mg/dL Normal 0.2-1.0 Alkaline Phosphatase 100 U/L Normal 34-104 Alt 11 U/L Normal 7-52 Ast 14 U/L Normal 13-39 Egfr Non- 68.9 >60 Egfr 83.4 >60 8 Laboratory test finding 12/23/2018 [facility] Troponin I 0.00 ng/mL <0.04 9 Magnesium 1.7 mg/dL Low 1.9-2.7 Blood Culture SEE RESULT BELOW 10 1 SEE RESULT BELOW Name: DAINA FUNK : [address]: Roseanne Macario NP Acct: [id number] Unit: [id number] AGE: 63 Location: [facility] Re04/14/19 SEX: F Status: REG REF SPEC: [id number] OUMOU: 04/12/19-[address] [facility] [address]: Roseanne Macario NP REQ: [id number] RECD: 04/14/19 STATUS: COMP _ SOURCE: NASAL SPDESC: ORDERED: MRSA PCR-Nasal COMMENTS: [id number] red topped BBL culture swab from LEFT NOSTRIL Procedure Result Reported Site MRSA PCR (Nasal) Final 04/14/19- 2217 ML Organism 1 MRSA NOT DETECTED * ML - Main Lab . END OF REPORT DEPARTMENT OF PATHOLOGY, [address] [place] [address] Johnie Gomez M.D. Director [facility] # [id number] 2 Standard intensity warfarin therapeutic range: 2.0-3.0 High intensity warfarin therapeutic range: 2.5-3.5 3 Because ethnic data is not always readily available, this report includes an eGFR for both -Americans and non- Americans. The National Kidney Disease Education Program (NKDEP) does not endorse the use of the MDRD equation for patients that are not between the ages of 18 and 70, are , have extremes of body size, muscle mass, or nutritional status, or are non- or non-. According to the National Kidney Foundation, irrespective of diagnosis, the stage of the disease is based on the level of kidney function: Stage Description GFR(mL/min/1.73 m(2)) 1 Kidney damage with normal or decreased GFR 90 2 Kidney damage with mild decrease in GFR 60-89 3 Moderate decrease in GFR 30-59 4 Severe decrease in GFR 15-29 5 Kidney failure <15 (or dialysis) 4 Troponin-I testing on Plasma Separator Tubes (PST) has a known false positive rate of 0.20-0.40%. All positive troponins reflex immediately to secondary confirmatory testing. Using the [employer] DxI 800 Access Immunoassay systems, the 99th percentile upper reference limit was demonstrated to be < 0.03 ng/mL. 5 SEE RESULT BELOW Name: DAINA FUNK : [address]: Ketan Hanley MD Acct: [id number] Unit: [id number] AGE: 63 Location: ED Re02/02/19 SEX: F Status: DEP ER SPEC: [id number] OUM[place]: 02/03/[address] [facility] [address]: Ketan Hanley MD REQ: [id number] RECD: 02/03/19 STATUS: FABIAN DUNNE DR: Tom Schrader MD _ SOURCE: BLOOD,VENO [facility]: ORDERED: Blood Cult Procedure Result Reported Site Aerobic Culture Bottle Final 02/08/19- 3 ML No Growth Day 5 Anaerobic Culture Bottle Final 02/08/19- 012 ML No Growth Day 5 * ML - Main Lab . END OF REPORT DEPARTMENT OF PATHOLOGY, [address] [place] [address] Johnie Gomez M.D. Director [facility] # [id number] 6 Please note: The following may produce a false positive D Dimer test: - Rheumatoid factor greater than 60 IU/ml - Plasma hemoglobin greater than 0.05 gm/dl - Bilirubin greater than 50 mg/dl - Lipids greater than 1000 mg/dl - FDP greater than 20 ug/ml 7 [facility] Severe Sepsis and Septic Shock Management Bundle Measure requires all lactic acids initially measuring >2.0 mmol/L be repeated. 8 Because ethnic data is not always readily available, this report includes an eGFR for both -Americans and non- Americans. The National Kidney Disease Education Program (NKDEP) does not endorse the use of the MDRD equation for patients that are not between the ages of 18 and 70, are , have extremes of body size, muscle mass, or nutritional status, or are non- or non-. According to the National Kidney Foundation, irrespective of diagnosis, the stage of the disease is based on the level of kidney function: Stage Description GFR(mL/min/1.73 m(2)) 1 Kidney damage with normal or decreased GFR 90 2 Kidney damage with mild decrease in GFR 60-89 3 Moderate decrease in GFR 30-59 4 Severe decrease in GFR 15-29 5 Kidney failure <15 (or dialysis) 9 Troponin-I testing on Plasma Separator Tubes (PST) has a known false positive rate of 0.20-0.40%. All positive troponins reflex immediate secondary confirmatory testing. 10 SEE RESULT BELOW Name: ALEKS FUNKIsabella Murcia : [address]: Karma Ambrocio MD Acct: [id number] Unit: [id number] AGE: 63 Location: [place] [address] Re12/23/18 Dis: 12/25/18 SEX: F Status: DIS IN SPEC: [id number] [place]UM[place]: 12/23/[address] [facility] [address]: Elliott Pittman MD REQ: [id number] RECD: 12/23/18 STATUS: FABIAN DUNNE DR: Tom Schrader MD _ SOURCE: BLOOD,VENO SPDES: ORDERED: Blood Cult Procedure Result Reported Site Aerobic Culture Bottle Final 12/28/18- 1202 ML No Growth Day 5 Anaerobic Culture Bottle Final 12/28/18- 120 ML No Growth Day 5 * ML - Main Lab . END OF REPORT DEPARTMENT OF PATHOLOGY, [address] [place] [address] Johnie Gomez M.D. Director [facility] # [id number] Procedures Date Code Description Status 03/26/2019 15578 Pulse Oximetry Completed 03/26/2019 97931 Finger Or Heel Stick Completed 03/05/2019 28079 Finger Or Heel Stick Completed 06/10/2003 46663105 Colonoscopy Completed Medical Devices Description No Information Available Encounters Type Date Location Provider Dx Diagnosis Office Visit 04/12/2019 Main Office Roseanne Macario, H10.89 Other conjunctivitis 10:00a MELLOWING MACHINE OPERATOR J31.0 Chronic rhinitis Office Visit 03/26/2019 11:00a Main Office Tom Cook44.0 Lizbeth obstructive Win Schrader pulmon disease with (acute) lower resp infct Office Visit 03/26/2019 10:45a Main Office Tom Nicholas.0 Chr obstructive Win Schrader pulmon disease with (acute) lower resp infct Z79.01 terminal gauger (current) use of anticoagulants I82.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 Office Visit 03/05/2019 10:10a Main Office Tom Wright Z79.01 terminal gauger ( current) Win Schrader use of anticoagulants 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 acute lower respi 03/26/2019 Z79.01 jail (current) use of anticoagulants Tom Schrader M.D. 03/26/2019 I82.532 Chronic embolism and thrombosis of left Tom Schrader M.D. popliteal vein 03/05/2019 Z79.01 jail (current) use of anticoagulants Tom Schrader M.D. 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 popliteal vein 03/05/2019 J44.0 Chronic obstructive pulmonary disease with Tom Schrader M.D. acute lower respi 03/05/2019 F17.210 Nicotine dependence, cigarettes, Tom Schrader M.D. uncomplicated Plan of Treatment Future Appointment(s):06/23/2019 1:40 pm - Tom Schrader M.D. at Main Iybjho1105/28/2019 - Swetha Servin, NPG25.81 Restless legs syndromeComments:I suspect your iron stores are low. We will recheck today, but in the mean time you can increase your dose of gabapentin. Please follow-up with Dr. Schrader next month about your symptoms.D50.9 Iron deficiency anemia, unspecifiedNew Labs :CBC Electronic ([facility] New), Ordered: 05/28/19Iron/Tibc & Ferritin([facility]), Ordered: 05/28/19BMP W/Egfr, Ordered: 05/28/19Z79.01 jail (current) use of anticoagulantsAllNew Medication:Gabapentin 300 mg - one or two by mouth at bedtimeComments:1. Patient has been queried about patient's goals/preferences and functional/lifestyle goals at relevant visits. If relevant, describe: Has been discussed, noted above2. Treatment goals as explainedto the patient: see above3. Are there barriers to meeting treatment goals? Yes If Yes, please describe: Barriers include possible insurance limits, disease process, and difficulty with lifestyle changes4. Self-Management goals as described to the patient: Yes, see above As always, we strongly encourage a healthy diet and making physical activity a part of your every day life. If you have questions about how or where to start, please contact the office. Functional Status Description No Information Available Mental Status Description No Information Available Referrals Refer to Reason for Referral Status Appt Date [facility] Portable O2 at 2 L/min. Office note faxed. LT Created [address] [place] [address] [phone] [facility] nebulizer set up and tubing Scheduled [address] [place] [address] [phone]
[2019-06-05] MEDS ORDERED: Azithromycin TAB* 250 MG PO ONE (19:26)
[2019-06-05 19:45] VITALS: BP 0/0
== END 2019-06-05 19:30 | disposition home or self-care (01) ==
LOC: ED 17:26
DX: J44.9 Chronic obstructive pulmonary disease, unspecified (principal); D64.9 Anemia, unspecified; I25.10 Atherosclerotic heart disease of native coronary artery without angina pectoris; E78.00 Pure hypercholesterolemia, unspecified; I10 Essential (primary) hypertension; I73.9 Peripheral vascular disease, unspecified; K21.9 Gastro-esophageal reflux disease without esophagitis; F17.210 Nicotine dependence, cigarettes, uncomplicated; Z99.81 Dependence on supplemental oxygen; Z90.49 Acquired absence of other specified parts of digestive tract; Z88.1 Allergy status to other antibiotic agents; Z88.0 Allergy status to penicillin; Z88.8 Allergy status to other drugs, medicaments and biological substances; Z79.01 Long term (current) use of anticoagulants; Z79.899 Other long term (current) drug therapy
CPT/HCPCS: 36415; 71046; 80053; 83605; 83880; 84484; 85025; 85379; 85610; 86140; 93005; 96374; 99282; A9270-GY; J2930

== ENCOUNTER 2019-07-14 16:43 | Observation (INO) | payer MEDICARE, MEDICAID ==
[2019-07-14] MEDS: NS 0.9% 1000 ML** 2,000 ML IV ONE (17:29)
[2019-07-14 17:40] LABS: ABS Lymphocytes 0.7 10^3/ul (1.0-4.8); ABS Monocytes 0.6 10^3/ul (0-0.8); ABS Neutrophils 5.6 10^3/ul (1.5-7.7); Eosinophil % 0.2 %; Hematocrit 40 % (35-47); Hemoglobin 12.9 g/dL (12.0-16.0); Lymphocyte % 9.7 %; Mean Corpuscular HGB Conc 33 g/dL (31-36); Mean Corpuscular Hemoglobin 28 pg (27-31); Mean Corpuscular Volume 86 fL (80-97); Mean Platelet Volume 8.6 fL (7.4-10.4); Nucleated Red Blood Cells % 0.1; Platelet Count 120 10^3/uL (150-450); Red Blood Count 4.59 10^6 /uL (3.70-4.87); Red Cell Distribution Width 16 % (10-15); White Blood Count 6.8 10^3/uL (3.5-10.8)
[2019-07-14 17:49] LABS: Activated Partial Thrombo Time 44.3 seconds (26.0-38.0); INR 1.59 (0.82-1.09)
[2019-07-14 17:59] LABS: Albumin/Globulin Ratio 1.4 (1-3); BUN/Creatinine Ratio 18.4 (8-20); Calcium 9.8 mg/dL (8.6-10.3); EGFR African American 65.9 (>60); EGFR Non-African American 54.5 (>60); Globulin 2.8 g/dL (2-4); Total Bilirubin 0.6 mg/dL (0.2-1.0); Total Protein 6.8 g/dL (6.4-8.9)
[2019-07-14 18:00] LABS: Troponin I 0.03 ng/mL (<0.04)
--- NOTE | 2019-07-14 19:09 | ED ---
Abdominal Pain/Female - HPI Summary HPI Summary: Patient is aa 63 y/o F presenting to the ED via EMS for a chief complaint of diffuse abdominal pain. Patient admits fever, nausea, vomiting, diarrhea generalized weakness, dizziness, and lightheadedness. Patient was found covered in diarrhea by EMS. Patient denies any chills, erythema of eyes, sore throat, CP , SOB, cough, abdominal pain, dysuria, hematuria, myalgia, edema, rash, or dizziness. Patient sees Dr. Garcia. Patient has a PMHx of COPD and emphysema. - History of Current Complaint Chief Complaint: EDAbdPain Stated Complaint: GENERAL ILLNESS PER EMS Time Seen by Provider: 07/14/19 16:48 Hx Obtained From: Patient ?: No Onset/Duration: Sudden Onset, Still Present Timing: Constant Severity Initially: Moderate Severity Currently: Moderate Pain Intensity: 5 Pain Scale Used: 0-10 Numeric Location: Diffuse Radiates: No Aggravating Factor(s): Nothing Alleviating Factor(s): Nothing Associated Signs and Symptoms: Positive: Fever - In vitals, 99.1 F, Dizzy, Nausea, Vomiting, Diarrhea. Negative: Cough, Chest Pain, Urinary Symptoms - Negative dysuria, hematuria Allergies/Adverse Reactions: Allergies Allergy/AdvReac Type Severity Reaction Status Date / Time bupropion [From Wellbutrin] Allergy Agitation Verified 02/02/19 23:49 Cephalosporins Allergy Agitation Verified 02/02/19 23:49 chlorproethazine Allergy Agitation Verified 02/02/19 23:49 erythromycin base Allergy Diarrhea Verified 02/02/19 23:49 Penicillins Allergy Hives Verified 02/02/19 23:49 tobramycin Allergy Diarrhea Verified 02/02/19 23:49 doxycycline AdvReac Severe See Comment Verified 02/02/19 23:49 Home Medications: Home Medications Albuterol/Ipratropium NEB.GINETTE* [Duoneb (Albuterol 2.5 MG/Ipratropium 0.5 MG)] 1 neb INH Q4H PRN 07/14/19 [History Confirmed 07/14/19] Ferrous Gluconate TAB* [Fergon TAB*] 324 mg PO DAILY 07/14/19 [History Confirmed 07/14/19] Fluticasone/Vilanterol MDI(NF) [Breo Ellipta MDI 200/25(NF)] 1 puff INH DAILY [History Confirmed 07/14/19] Gabapentin CAP(*) [Neurontin 100 mg CAP(*)] 200 mg PO BID 07/14/19 [History Confirmed 07/14/19] Mag Hydrox/Aluminum Hyd/Simeth [Antacid Anti-Gas Liquid] 5 ml PO DAILY 07/14/19 [History Confirmed 07/14/19] Mag Hydrox/Aluminum Hyd/Simeth [Maalox Maximum Strength Susp] 15 ml PO DAILY 12/27 [History Confirmed 07/14/19] Metoprolol Tartrate TAB* [Lopressor TAB*] 25 mg PO BID 07/14/19 [History Confirmed 07/14/19] Mirtazapine TAB* [Remeron TAB*] 15 mg PO BEDTIME 07/14/19 [History Confirmed 12/27] Propylene Glycol/Peg 400/Pf [Lubricant Eye 0.4%-0.3% Drop] 2 drop RIGHT EYE QID PRN 07/14/19 [History Confirmed 07/14/19] Saline NASAL SPRAY 0.65%* [Sodium Chloride 0.65% Nasal [place]*] 1 spray BOTH NARES TID PRN 07/14/19 [History Confirmed 07/14/19] PMH/Surg Hx/FS Hx/Imm Hx Previously Healthy: Yes Endocrine/Hematology History: Reports: Hx Anticoagulant Therapy, Hx Anemia, Other Endocrine/Hematological Disorders - L leg DVT Denies: Hx Diabetes, Hx Systemic Lupus Erythematosus, Hx Thyroid Disease Cardiovascular History: Reports: Hx Angina, Hx Coronary Artery Disease, Hx Deep Vein Thrombosis, Hx Hypercholesterolemia, Hx Hypertension, Hx Peripheral Vascular Disease, Other Cardiovascular Problems/Disorders - PERIPHERAL ARTERY DISEASE; CAD; DVT Denies: Hx Auto Implanted Cardiovert Defib, Hx Congestive Heart Failure, Hx Pacemaker/ICD Respiratory History: Reports: Hx Asthma, Hx Chronic Bronchitis, Hx Chronic Obstructive Pulmonary Disease (COPD) - 2L at home, Hx Pneumonia, Hx Seasonal Allergies, Other Respiratory Problems/Disorders - PNA Denies: Hx Cystic Fibrosis, Hx Lung Cancer, Hx Pleural Effusion, Hx Pulmonary Edema, Hx Pulmonary Embolism, Hx Sleep Apnea GI History: Reports: Hx Gall Bladder Disease - removed, Hx Gastroesophageal Reflux Disease, Hx Irritable Bowel, Other GI Disorders - hernia repair X 2 Denies: Hx Cirrhosis, Hx Crohn's Disease, Hx Diverticulosis History: Denies: Hx Dialysis, Hx Renal Disease Musculoskeletal History: Denies: Hx Arthritis, Hx Rheumatoid Arthritis, Hx Osteoporosis Sensory History: Denies: Hx Contacts or Glasses, Hx Glaucoma, Hx Deafness, Hx Hearing Aid, Hx Hearing Problem Opthamlomology History: Denies: Hx Contacts or Glasses, Hx Glaucoma Neurological History: Denies: Hx Headaches, Hx Seizures, Hx Transient Ischemic Attacks (TIA) Psychiatric History: Reports: Hx Anxiety, Hx Depression, Hx Inpatient Treatment , Hx Community Mental Health Tx, Hx Schizophrenia, Hx Bipolar Disorder, Hx Suicide Attempt Denies: Hx Eating Disorder, Hx Panic Disorder, Hx of Violent Episodes Against Others - Cancer History Hx Chemotherapy: No - Surgical History Surgical History: Yes Surgery Procedure, Year, and Place: bilat thumb repairs, hernia repairs X 2, cholecystectomy, appendectomy Hx Anesthesia Reactions: No - Immunization History Date of Tetanus Vaccine: UTD Date of Influenza Vaccine: 06/2018 Infectious Disease History: No Infectious Disease History: Denies: Hx Clostridium Difficile, Hx Hepatitis, Hx Human Immunodeficiency Virus (HIV), Hx of Known/Suspected MRSA, Hx Shingles, Hx Tuberculosis, Traveled Outside the [place] in Last 30 Days - Family History Known Family History: Positive: Cardiac Disease - OR, Other - schizophrenia, anxiety Negative: Hypertension, Diabetes Family History: Negative HTN/DM per EMR - Social History Occupation: Retired Lives: With Family Alcohol Use: Rare Hx Substance Use: No Substance Use Type: Reports: None Hx Tobacco Use: Yes Smoking Status (MU): Current Every Day Smoker Type: Cigarettes Amount Used/How Often: 1 PPD Have You Smoked in the Last Year: Yes Review of Systems Negative: Fever, Chills Negative: Erythema Negative: Sore Throat Negative: Chest Pain Negative: Shortness Of Breath, Cough Positive: Abdominal Pain, Vomiting, Diarrhea, Nausea Negative: Myalgia, Edema Negative: Rash Neurological: Other - Positive dizziness and lightheadedness Positive: Weakness - Generalized All Other Systems Reviewed And Are Negative: Yes Physical Exam - Summary Physical Exam Summary: Constitutional: Well-developed, Well-nourished, Alert. (-) Distressed Skin: Warm, Dry HENT: Normocephalic; Atraumatic Eyes: Conjunctiva normal Neck: Musculoskeletal ROM normal neck. (-) JVD, (-) Stridor, (-) Tracheal deviation Cardio: Rhythm regular, rate normal, Heart sounds normal; Intact distal pulses; The pedal pulses are 2+ and symmetric. Radial pulses are 2+ and symmetric. (-) Murmur Pulmonary/Chest wall: Effort normal. (-) Respiratory distress, (-) Wheezes, (-) Rales Abd: Soft, (-) tenderness, (-) Distension, (-) Guarding, (-) Rebound Musculoskeletal: (-) Edema Lymph: (-) Cervical adenopathy Neuro: Alert, Oriented x3 Psych: Mood and affect Normal Triage Information Reviewed: Yes Vital Signs On Initial Exam: Initial Vitals Temp Pulse Resp BP Pulse Ox 99.1 F 114 16 128/86 96 07/14/19 16:47 07/14/19 16:47 07/14/19 16:47 07/14/19 16:47 07/14/19 16:47 Vital Signs Reviewed: Yes Procedures - Sedation Patient Received Moderate/Deep Sedation with Procedure: No Diagnostics - Vital Signs Vital Signs Temp Pulse Resp BP Pulse Ox 07/14/19 17:10 110 78/53 91 07/14/19 16:47 99.1 F 114 16 128/86 96 - Laboratory Lab Results: Lab Results 07/14/19 07/14/19 07/14/19 Range/Units 17:18 17:18 17:18 WBC 6.8 (3.5-10.8) 10^3/uL RBC 4.59 (3.70-4.87) 10^6 /uL Hgb 12.9 (12.0-16.0) g/dL Hct 40 (35-47) % MCV 86 (80-97) fL MCH 28 (27-31) pg MCHC 33 (31-36) g/dL RDW 16 H (10-15) % Plt Count 120 L (150-450) 10^3/uL MPV 8.6 (7.4-10.4) fL Neut % (Auto) 81.1 % Lymph % (Auto) 9.7 % [place] % (Auto) 8.6 % Eos % (Auto) 0.2 % Baso % (Auto) 0.4 % Absolute Neuts (auto) 5.6 (1.5-7.7) 10^3/ul Absolute Lymphs (auto) 0.7 L (1.0-4.8) 10^3/ul Absolute Monos (auto) 0.6 (0-0.8) 10^3/ul Absolute Eos (auto) 0.0 (0-0.6) 10^3/ul Absolute Basos (auto) 0.0 (0-0.2) 10^3/ul Absolute Nucleated RBC 0.0 10^3/ul Nucleated RBC % 0.1 INR (Anticoag Therapy) 1.59 H (0.82-1.09) APTT 44.3 H (26.0-38.0) seconds Sodium 140 (135-145) mmol/L Potassium 4.0 (3.5-5.0) mmol/L Chloride 103 (101-111) mmol/L Carbon Dioxide 29 (22-32) mmol/L Anion Gap 8 (2-11) mmol/L BUN 19 (6-24) mg/dL Creatinine 1.03 H (0.51-0.95) mg/dL Est GFR ( Amer) 65.9 (>60) Est GFR (Non-Af Amer) 54.5 (>60) BUN/Creatinine Ratio 18.4 (8-20) Glucose 89 (70-100) mg/dL Lactic Acid (0.5-2.0) mmol/L Calcium 9.8 (8.6-10.3) mg/dL Total Bilirubin 0.60 (0.2-1.0) mg/dL AST 26 (13-39) U/L ALT 13 (7-52) U/L Alkaline Phosphatase 94 (34-104) U/L Troponin I 0.03 (<0.04) ng/mL Total Protein 6.8 (6.4-8.9) g/dL Albumin 4.0 (3.2-5.2) g/dL Globulin 2.8 (2-4) g/dL Albumin/Globulin Ratio 1.4 (1-3) 07/14/19 Range/Units 17:18 WBC (3.5-10.8) 10^3/uL RBC (3.70-4.87) 10^6 /uL Hgb (12.0-16.0) g/dL Hct (35-47) % MCV (80-97) fL MCH (27-31) pg MCHC (31-36) g/dL RDW (10-15) % Plt Count (150-450) 10^3/uL MPV (7.4-10.4) fL Neut % (Auto) % Lymph % (Auto) % [place] % (Auto) % Eos % (Auto) % Baso % (Auto) % Absolute Neuts (auto) (1.5-7.7) 10^3/ul Absolute Lymphs (auto) (1.0-4.8) 10^3/ul Absolute Monos (auto) (0-0.8) 10^3/ul Absolute Eos (auto) (0-0.6) 10^3/ul Absolute Basos (auto) (0-0.2) 10^3/ul Absolute Nucleated RBC 10^3/ul Nucleated RBC % INR (Anticoag Therapy) (0.82-1.09) APTT (26.0-38.0) seconds Sodium (135-145) mmol/L Potassium (3.5-5.0) mmol/L Chloride (101-111) mmol/L Carbon Dioxide (22-32) mmol/L Anion Gap (2-11) mmol/L BUN (6-24) mg/dL Creatinine (0.51-0.95) mg/dL Est GFR ( Amer) (>60) Est GFR (Non-Af Amer) (>60) BUN/Creatinine Ratio (8-20) Glucose (70-100) mg/dL Lactic Acid 0.9 (0.5-2.0) mmol/L Calcium (8.6-10.3) mg/dL Total Bilirubin (0.2-1.0) mg/dL AST (13-39) U/L ALT (7-52) U/L Alkaline Phosphatase (34-104) U/L Troponin I (<0.04) ng/mL Total Protein (6.4-8.9) g/dL Albumin (3.2-5.2) g/dL Globulin (2-4) g/dL Albumin/Globulin Ratio (1-3) Result Diagrams: 07/14/19 17:18 07/14/19 17:18 Lab Statement: Any lab studies that have been ordered have been reviewed, and results considered in the medical decision making process. - EKG 17:56 Cardiac Rate: Tachycardia - 105 BPM EKG Rhythm: Sinus Tachycardia ST Segment: Normal Ectopy: None Summary of EKG Findings: EKG at 17:56 reveals 105 BPM with sinus tachycardia, no STEMI. Reviewed and interpreted by ED physician. Abdominal Pain Fem Course/Dx - Course Course Of Treatment: Patient is aa 63 y/o F presenting to the ED via EMS for a chief complaint of diffuse abdominal pain. Patient admits fever, nausea, vomiting, diarrhea generalized weakness, dizziness, and lightheadedness. Patient was found covered in diarrhea by EMS. Patient denies any chills, erythema of eyes, sore throat, CP, SOB, cough, abdominal pain, dysuria, hematuria, myalgia, edema, rash, or dizziness. Patient sees Dr. Garcia. Patient has a PMHx of COPD and emphysema. On exam, unremarkable findings. EKG at 17:56 reveals 105 BPM with sinus tachycardia, no STEMI. Laboratory abnormal findings: RDW 16, plt count 120, absolute lymphs 0.7, INR 1.59, APTT 44.3, creatinine 1.03,. In the ED course, patient was given fluids. At 18:48, Dr. Radha Nguyen agrees to admit the patient to [facility] with a diagnosis of hypovolemia and gastroenteritis. Patient will be admitted to [facility] with a diagnosis of hypovolemia and gastroenteritis. - Diagnoses Provider Diagnoses: Hypovolemia, Gastroenteritis - Provider Notifications Discussed Care Of Patient With: Radha Nguyen - At 18:48, Dr. Radha Nguyen agrees to admit the patient to [facility] with a diagnosis of hypovolemia and gastroenteritis. Time Discussed With Above Provider: 18:48 Instructed by Provider To: Admit As Inpatient Discharge ED - Sign-Out/Discharge Documenting (check all that apply): Patient Departure - Admit - Discharge Plan Condition: Stable Disposition: ADMITTED TO [facility] Referrals: Tom Schrader MD [Primary Care Provider] - - Attestation Statements Document Initiated by Scribe: Yes Documenting Scribe: Xochitl Crawford Provider For Whom Scribe is Documenting (Include Credential): Tab Denney MD Scribe Attestation: Xochitl Laboy, scribed for Tab Denney MD on 07/14/19 at 1905. Status of Scribe Document: Ready
[2019-07-14] MEDS ORDERED: Benzonatate CAP* 100 MG PO PRN (19:29)
[2019-07-14] MEDS ORDERED: Acetaminophen TAB* 325 MG PO PRN (19:29)
[2019-07-14] MEDS ORDERED: Ondansetron INJ* 2 MG/ML VIAL IV PRN (19:29)
[2019-07-14] MEDS ORDERED: Albuterol 2.5 MG/3 ML NEB.SOL* (0.083%) INH PRN (19:29)
[2019-07-14] MEDS ORDERED: Saline NASAL SPRAY 0.65%* BTL BOTH NARES PRN (19:33)
[2019-07-14] MEDS ORDERED: Loperamide CAP* 2 MG PO PRN (19:38)
[2019-07-14 20:10] LABS: Lithium 0.55 mmol/L (0.6-1.2)
[2019-07-14 20:31] LABS: Influenza A Molecular NEGATIVE (Negative); Influenza B Molecular NEGATIVE (Negative)
[2019-07-14] MEDS: Lactated Ringers 1000 ML Bag* 1,000 ML IV SCH (21:38)
[2019-07-14] MEDS: Albuterol/Ipratropium NEB.SOL* Albuterol 2.5 MG/Ipratropium 0.5 MG 3 ML INH SCH (22:01)
[2019-07-14] MEDS: Mometasone/Formoter 200/5 MDI INH SCH (22:02)
[2019-07-14] MEDS: Azithromycin 500 mg/250 ml NS 500 MG/250 ML BAG IVPB SCH (22:21)
[2019-07-14] MEDS: Atorvastatin* 10 MG TAB PO SCH (22:26)
[2019-07-14] MEDS: guaiFENesin ER TAB 600 MG PO SCH (22:26)
[2019-07-14] MEDS: Gabapentin CAP(*) 300 MG PO SCH (22:26)
[2019-07-14] MEDS: Lithium Carbonate TAB* 300 MG PO SCH (22:26)
[2019-07-14] MEDS: Mirtazapine TAB* 15 MG PO SCH (22:26)
[2019-07-14] MEDS: OLANzapine TAB* 10 MG PO SCH (22:26)
[2019-07-14] MEDS: Metoprolol Tartrate TAB* 25 MG PO SCH (22:27)
[2019-07-14] MEDS: Enoxaparin(*) 40 MG/0.4 ML SYR SUBCUT SCH (22:27)
[2019-07-14] MEDS ORDERED: methylPREDNISolone 125 MG* 2 ML VIAL IV ONE (22:54)
--- NOTE | 2019-07-14 23:05 | HP ---
CC: Dr. Tom Schrader * ADMISSION HISTORY AND PHYSICAL: DATE OF ADMISSION: 07/14/19 PRIMARY CARE PROVIDER: Dr. Tom Schrader. MY ATTENDING WHILE IN THE HOSPITAL: Dr. Radha Nguyen.* (DICTATED BY FIONA OCHOA) CHIEF COMPLAINT: Diarrhea for unclear amount of time. HISTORY OF PRESENT ILLNESS: Ms. Camejo is a 63-year-old female with a past medical history significant for COPD, on 2 L of oxygen at night; DVT, on chronic warfarin therapy; peripheral artery disease; coronary artery disease, who presents to the emergency department after her reports being brought in by her daughter, who found her at home, covered in feces. The patient was markedly altered when she came in, but was improving upon examination. The patient states that she has had diarrhea for approximately a week along with nausea and vomiting. She has been unable to take her meds for most of this time. The patient states that her nephew who had been visiting her had similar symptoms of diarrhea. The patient states that around the same time she had this , she developed this diarrhea, she began to get more short of breath. She has chest pain, but she states this is only related to her nausea and vomiting. The patient is very dry and feels dehydrated. The patient has no pain with urination. The patient cannot quantify how much as she has been urinating. The patient denies palpitations, fevers, or chills. The patient does not know whether or not she got her flu shot this year. The patient has no recent weight loss or weight gain. The patient has not eaten any food that she can identify as being spoiled. The patient has not had any other recent changes to her medications, but again has not taken her medications in several days. Due to concern for dehydration, gastroenteritis, we were asked to evaluate the patient for admission to the hospital. PAST MEDICAL HISTORY: COPD, on 2 L of oxygen at night; hypertension; DVT; peripheral artery disease; coronary artery disease; schizoaffective disorder. PAST SURGICAL HISTORY: Appendectomy, hernia repair. MEDICATIONS: 1. Albuterol inhaler 2 puffs inhalation q.4 hours as needed. 2. Nexium 40 mg p.o. daily. 3. [place] carbonate 300 mg p.o. b.i.d. 4. Norvasc 10 p.o. daily. 5. Olanzapine 10 mg p.o. daily. 6. Isosorbide mononitrate 30 mg p.o. daily. 7. Montelukast 10 mg p.o. daily. 8. Gabapentin 300 mg p.o. at bedtime. 9. Gabapentin 200 mg p.o. b.i.d. 10. Anoro Ellipta 2 puffs inhalation b.i.d. 11. Warfarin 5 mg p.o. daily. 12. Atorvastatin 10 mg p.o. daily. 13. Tylenol 650 mg q.4 hours as needed. 14. Metoprolol tartrate 25 mg p.o. daily. 15. Maalox Maximum Strength 50 mL p.o. daily. 16. DuoNeb 1 nebulizer inhalation q.4 hours as needed. 17. Mirtazapine 15 mg p.o. daily. 18. Sodium chloride 1 squirt both nares t.i.d. as needed. 19. Lubricant eye drops 2 drops right eye four times a day as needed. 20. Ferrous gluconate 325 mg daily. Of note, the patient also has Breo Ellipta noted on her med rec though this likely is not taken at the same time as Anoro. We will attempt to get further med rec. ALLERGIES: BUPROPION, CEPHALOSPORINS, CHLORPROETHAZINE, ERYTHROMYCIN, PENICILLINS, TOBRAMYCIN, DOXYCYCLINE. FAMILY HISTORY: Both the patient's parents had emphysema. The patient's mother at 70 of COPD. The patient's father in his 70s from [place]. The patient has 7 siblings, whose medical histories are unknown. SOCIAL HISTORY: The patient with over [id number] history of smoking. She is unable to state whether or not she has recently smoked. The patient denies recreational alcohol use. The patient denies illicit drug use. 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 The patient's son, Maikel, will be her surrogate decision maker. REVIEW OF SYSTEMS: A 10-point review of systems was reviewed with the patient and is negative except as above in the HPI. The patient is difficult to understand based on her dry mouth. PHYSICAL EXAMINATION GENERAL: The patient is a 63-year-old female, who appears stated age and sitting in the bed with slightly increased work of breathing. VITAL SIGNS: At the time of evaluation, temperature 99.1, pulse rate 106, respiratory rate 24, oxygen saturation 98% on 2 L, blood pressure 130/54. HEENT: Head: Normocephalic, atraumatic. Sclerae anicteric. No conjunctival injection. Nasal mucosa moist. Oral mucosa moist. No pharyngeal erythema, discharge or exudate. NECK: Supple, nontender. No lymphadenopathy. No carotid bruits auscultated. No JVD. RESPIRATORY: Expiratory wheezing throughout. No other adventitious lung sounds. Good air exchange bilaterally. CARDIAC: Tachycardic. No clicks, gallops, murmurs, or rubs. Pulses are 2+ in the bilateral dorsalis pedis, posterior tibial, and radial areas. No bilateral lower extremity edema noted. No bilateral calf tenderness. ABDOMEN: Soft, nontender, nondistended. Bowel sounds present, hyperactive in all 4 quadrants. No hepatosplenomegaly. No abdominal bruits auscultated. No hepatojugular reflux. GENITOURINARY: No suprapubic or CVA tenderness. NEUROLOGIC: Cranial nerves II through XII are intact. No focal deficits. Alert and oriented to self and place, does not know what the date is. PSYCHIATRIC: Pleasant and cooperative. SKIN: Clear, intact. No rashes. DIAGNOSTIC STUDIES/LAB DATA: White blood cell count 6.8, hemoglobin 12.9, platelet count 120. INR 1.59, aPTT 44.3. Sodium 140, potassium 4.0, chloride 103, carbon dioxide 29, anion gap 8, BUN 19, creatinine 1.03, glucose 89, lactic acid 0.9, calcium 9.8. Bilirubin 0.6, AST 26, ALT 13, alkaline phosphatase 94. Protein 6.8, albumin 4.0, globulin 2.8. EKG shows sinus tachycardia. No ST-segment elevation or depression. Normal R- wave progression. No hypertrophy, possible left atrial enlargement. QTc of 491 , rate of 105, compared with previous exam QTc is longer, rate is slower. There are no other significant changes. ASSESSMENT AND PLAN: Impression: Ms. Camejo is a 63-year-old female with a past medical history significant for chronic obstructive pulmonary disease, hypertension, coronary artery disease, and deep venous thrombosis, who presents to the emergency department with approximately a week of nausea, vomiting, diarrhea, and was found to also have a chronic obstructive pulmonary disease exacerbation. The patient will be admitted to the hospital for supportive care and treatment of her chronic obstructive pulmonary disease. 1. Diarrhea, nausea, vomiting, dehydration. The patient's symptoms are likely due to viral gastroenteritis given that her nephew, who has been visiting her, also had similar symptoms, and given the time of the year and the patient's symptoms, the patient is thirsty and has an appetite indicating her symptoms are possibly abating. The patient will be started on a clear liquid diet, to be advanced as tolerated. The patient will be given fluids. She has already received 2 L and given further fluids at 100 mL an hour. The patient will likely not been benefit from further abdominal imaging, as she has nontender abdomen and antibiotics are not indicated for this source. If the patient is not improved, these could be considered at a later time as well as stool studies or viral antigen testing. The patient will have antiemetics and antidiarrheal agents as needed. 2. Chronic obstructive pulmonary disease exacerbation, mild. The patient is requiring 2 L of oxygen, was saturating 100 on this. This will likely be weaned off in the near future; however, the patient does have wheezing throughout her lungs. The patient has not been taking her home inhalers. The patient will be started on triple inhaler therapy, steroids with plans for a burst dose and scheduled inhalers, and pulmonary toileting, incentive spirometry , flutter valve, and guaifenesin. The patient will also be given azithromycin IV for its antiinflammatory properties. 3. Hypertension. Continue the patient's metoprolol tartrate to avoid rebound. Also continue the patient's Imdur. Hold the patient's amlodipine. The patient is currently normotensive. The patient is dehydrated and has not been taking her antihypertensives, caution should be used when resuming these. 4. Deep venous thrombosis. The patient is subtherapeutic, bridge with Lovenox at DVT prophylaxis dose. Resume the patient's home dosing of warfarin. 5. Peripheral arterial disease. Continue the patient's Lipitor. The patient is not on aspirin for unclear reason; this will not be started at this time. 6. Schizoaffective disorder. Continue the patient's lithium. Check level. Continue the patient's olanzapine and mirtazapine as well. 7. DVT prophylaxis as above. 8. FEN. Clear liquid diet and fluids as above. 9. Disposition. The patient will be admitted as observation to the hospital. TIME SPENT: Approximately, 60 minutes was spent on the admission of this patient, 30 of which was spent [id number] with the patient obtaining history and physical and discussing treatment plan. This plan has been discussed with my attending, Dr. Radha Nguyen, and she is in agreement. FIONA OCHOA [id number]/[facility] #: [id number] ANN[place]
[2019-07-15] MEDS: Albuterol/Ipratropium NEB.SOL* Albuterol 2.5 MG/Ipratropium 0.5 MG 3 ML INH SCH ×4 (03:15→19:34)
[2019-07-15 05:16] LABS: ABS Lymphocytes 0.4 10^3/ul (1.0-4.8); ABS Monocytes 0.1 10^3/ul (0-0.8); ABS Neutrophils 4.8 10^3/ul (1.5-7.7); Eosinophil % 0.1 %; Hematocrit 37 % (35-47); Hemoglobin 12.4 g/dL (12.0-16.0); Lymphocyte % 6.7 %; Mean Corpuscular HGB Conc 34 g/dL (31-36); Mean Corpuscular Hemoglobin 29 pg (27-31); Mean Corpuscular Volume 86 fL (80-97); Mean Platelet Volume 8.4 fL (7.4-10.4); Platelet Count 111 10^3/uL (150-450); Red Blood Count 4.27 10^6 /uL (3.70-4.87); Red Cell Distribution Width 16 % (10-15); White Blood Count 5.3 10^3/uL (3.5-10.8)
[2019-07-15 05:33] LABS: BUN/Creatinine Ratio 25.3 (8-20); EGFR Non-African American 62.8 (>60); Magnesium 1.7 mg/dL (1.9-2.7); Potassium 4.5 mmol/L (3.5-5.0)
[2019-07-15] MEDS: Lactated Ringers 1000 ML Bag* 1,000 ML IV SCH (07:27)
[2019-07-15] MEDS: Mometasone/Formoter 200/5 MDI INH SCH ×2 (07:48→19:34)
[2019-07-15] MEDS: SPIRIVA Respimat* (tiotropium) 2.5 mcg/inh Inhaler INH SCH (07:49)
--- NOTE | 2019-07-15 08:44 | PN ---
Subjective Date of Service: 07/15/19 Interval History: Ms. Camejo is feeling poor this morning. She feels about the same as last night. Still feeling SOB which is unchanged. Occasional cough. She is tired and did not sleep well. Denies CP, N/V/D. Nursing reports tachypnea, but otherwise stable VS. Family History: Unchanged from Admission Social History: Unchanged from Admission Past Medical History: Unchanged from Admission Objective Active Medications: Acetaminophen (Tylenol Tab*) 650 mg PO Q6H PRN MILD PAIN or TEMP > 100.4 Albuterol (Ventolin 2.5 Mg/3 Ml Neb.Tania*) 2.5 mg INH Q2H PRN SOB/WHEEZING Albuterol/Ipratropium (Duoneb (Albuterol 2.5 Mg/Ipratropium 0.5 Mg)) 1 neb INH [id number] AWAKE ELI Atorvastatin Calcium (Lipitor*) 10 mg PO BEDTIME ELI Benzonatate (Tessalon Cap*) 100 mg PO BID PRN COUGH Enoxaparin Sodium (Lovenox(*)) 40 mg SUBCUT Q24H ELI Gabapentin (Neurontin Cap(*)) 200 mg PO BID ELI Gabapentin (Neurontin Cap(*)) 600 mg PO BEDTIME ELI Guaifenesin (Mucinex*) 1,200 mg PO BID ELI Azithromycin (Zithromax 500 Mg/250 Ml) 500 mg in 250 mls @ 250 mls/hr IVPB Q24H ELI Lactated Ringer's (Lactated Ringers 1000 Ml Bag*) 1,000 mls @ 125 mls/hr IV PER RATE ELI Isosorbide Mononitrate (Imdur Er Tab*) 30 mg PO DAILY ELI [place] Carbonate ([place] Carbonate Tab*) 300 mg PO BID ELI Loperamide HCl (Imodium Cap*) 2 mg PO BID PRN DIARRHEA Metoprolol Tartrate (Lopressor Tab*) 25 mg PO BID EIL Mirtazapine (Remeron Tab*) 15 mg PO BEDTIME ELI Mometasone Furoate/Formoterol Fumar (Dulera 200/5 Mdi*) 2 puff INH BID ELI Montelukast Sodium (Singulair Tab*) 10 mg PO DAILY ELI Olanzapine (Zyprexa Tab*) 10 mg PO BEDTIME ELI Ondansetron HCl (Zofran Inj*) 4 mg IV Q6H PRN NAUSEA Pantoprazole Sodium (Protonix Tab*) 40 mg PO DAILY ELI; Protocol Prednisone (Deltasone Tab*) 60 mg PO DAILY [facility] Sodium Chloride (Sodium Chloride 0.65% Nasal [place]*) 1 spray BOTH NARES TID PRN CONGESTION Tiotropium [place] (Spiriva Respimat 2.5 Mcg) 2 puff INH DAILY [facility] Warfarin Sodium (Coumadin Tab(*)) 4.5 mg PO DAILY ELI; Protocol Vital Signs - 8 hr 07/15/19 07/15/19 07/15/19 00:45 00:48 01:00 Temperature 99.9 F Pulse Rate 83 83 83 Respiratory 30 32 32 Rate Blood Pressure 113/43 113/43 114/46 (mmHg) O2 Sat by Pulse 100 99 97 Oximetry 07/15/19 07/15/19 07/15/19 01:02 01:04 01:09 Temperature Pulse Rate 84 84 Respiratory 31 32 31 Rate Blood Pressure (mmHg) O2 Sat by Pulse 97 97 Oximetry 07/15/19 07/15/19 07/15/19 01:15 01:30 01:45 Temperature Pulse Rate 84 87 85 Respiratory 31 32 36 Rate Blood Pressure 123/52 114/49 101/50 (mmHg) O2 Sat by Pulse 97 97 95 Oximetry 07/15/19 07/15/19 07/15/19 01:50 02:00 02:15 Temperature Pulse Rate 85 84 Respiratory 32 30 30 Rate Blood Pressure 108/54 107/47 (mmHg) O2 Sat by Pulse 94 94 Oximetry 07/15/19 07/15/19 07/15/19 02:30 02:45 02:52 Temperature Pulse Rate 85 84 Respiratory 29 30 28 Rate Blood Pressure 105/46 106/45 (mmHg) O2 Sat by Pulse 94 94 Oximetry 07/15/19 07/15/19 07/15/19 03:00 03:15 03:30 Temperature Pulse Rate 83 81 84 Respiratory 28 29 10 Rate Blood Pressure 103/43 109/42 125/51 (mmHg) O2 Sat by Pulse 94 95 95 Oximetry 07/15/19 07/15/19 07/15/19 03:45 03:54 04:00 Temperature Pulse Rate 93 90 Respiratory 26 29 25 Rate Blood Pressure 132/66 (mmHg) O2 Sat by Pulse 94 97 Oximetry 07/15/19 07/15/19 07/15/19 04:02 04:15 04:30 Temperature Pulse Rate 90 84 82 Respiratory 19 28 22 Rate Blood Pressure 111/56 112/44 106/46 (mmHg) O2 Sat by Pulse 92 96 96 Oximetry 07/15/19 07/15/19 07/15/19 04:45 04:53 05:00 Temperature Pulse Rate 84 83 Respiratory 26 28 29 Rate Blood Pressure 106/42 (mmHg) O2 Sat by Pulse 97 97 Oximetry 07/15/19 07/15/19 07/15/19 05:04 05:15 05:30 Temperature Pulse Rate 84 85 85 Respiratory 11 28 Rate Blood Pressure 97/41 89/41 93/44 (mmHg) O2 Sat by Pulse 97 95 97 Oximetry 07/15/19 07/15/19 07/15/19 05:45 05:56 06:00 Temperature Pulse Rate 84 84 Respiratory 28 Rate Blood Pressure 89/43 100/55 (mmHg) O2 Sat by Pulse 95 95 Oximetry 07/15/19 07/15/19 07/15/19 06:15 06:16 06:45 Temperature Pulse Rate 84 85 Respiratory 28 Rate Blood Pressure 105/43 108/45 (mmHg) O2 Sat by Pulse 95 95 Oximetry 07/15/19 07/15/19 07/15/19 07:00 07:15 07:24 Temperature 98.3 F Pulse Rate 84 85 Respiratory 30 Rate Blood Pressure 100/44 103/43 (mmHg) O2 Sat by Pulse 96 95 Oximetry 07/15/19 07/15/19 07/15/19 07:30 07:45 07:49 Temperature Pulse Rate 82 89 82 Respiratory 16 Rate Blood Pressure 112/47 107/51 (mmHg) O2 Sat by Pulse 97 96 98 Oximetry 07/15/19 07/15/19 08:00 08:09 Temperature Pulse Rate 87 Respiratory 34 34 Rate Blood Pressure 126/54 (mmHg) O2 Sat by Pulse 94 Oximetry Oxygen Devices in Use Now: Nasal Cannula - 2L Appearance: Middle-aged female lying in bed in NAD Neck: NL Appearance and Movements; NL JVP, Trachea Midline Respiratory: Symmetrical Chest Expansion and Respiratory Effort, - - Diminished throughout Cardiovascular: NL Sounds; No Murmurs; No JVD, RRR Abdominal: NL Sounds; No Tenderness; No Distention Extremities: No Edema Neurological: Alert and Oriented x 3 Lines/Tubes/Other Access: Clean, Dry and Intact Peripheral IV Nutrition: Taking PO's Result Diagrams: 07/15/19 04:02 07/15/19 04:02 Assess/Plan/Problems-Billing Assessment: Ms. Camejo is a 63 yo F with PMH of COPD on 2L at HS, HTN, DVT, PAD, CAD, schizoaffective disorder; who presented to the ED with c/o diarrhea and was found to be dehydrated and with COPD exacerbation. - Patient Problems (1) COPD exacerbation Code(s): J44.1 - CHRONIC OBSTRUCTIVE PULMONARY DISEASE W (ACUTE) EXACERBATION Comment: - Asymptomatic on admission, but required 2L to maintain sats - Decompensated overnight requiring transfer to ICU for BiPAP, but subsequently refused BiPAP and is now saturating well on 2L - CXR unremarkable for acute process - Wean oxygen as able; will need walk test prior to d/c - Continue prednisone, azithromycin, nebs, Tessalon, Mucinex, Dulera, Singulair , Spiriva (2) Acute on chronic respiratory failure with hypoxia and hypercapnia Code(s): J96.21 - ACUTE AND CHRONIC RESPIRATORY FAILURE WITH HYPOXIA; J96.22 - ACUTE AND CHRONIC RESPIRATORY FAILURE WITH HYPERCAPNIA Comment: - Baseline is 2L at night; currently on requiring 2L continuous - BiPAP attempted overnight, but patient refused - Secondary to COPD exacerbation - Continue prednisone, nebs (3) Viral gastroenteritis Code(s): A08.4 - VIRAL INTESTINAL INFECTION, UNSPECIFIED Comment: - Unclear how long symptoms were present prior to admission - N/V/D now resolved; d/t quick resolution, this certainly appears consistent with viral source - Advance diet and d/c IVF (4) HTN (hypertension) Code(s): I10 - ESSENTIAL (PRIMARY) HYPERTENSION Comment: - Normotensive - Continue Imdur, metoprolol (5) Hx of deep venous thrombosis Code(s): Z86.718 - PERSONAL HISTORY OF OTHER VENOUS THROMBOSIS AND EMBOLISM Comment: - INR subtherapeutic, likely d/t N/V/D - Continue Lovenox bridging to warfarin (6) Schizoaffective disorder, bipolar type Code(s): F25.0 - SCHIZOAFFECTIVE DISORDER, BIPOLAR TYPE Comment: - Continue olanzapine, mirtazapine, lithium, gabapentin (7) CAD (coronary artery disease) Code(s): I25.10 - ATHSCL HEART DISEASE OF [place] CORONARY ARTERY W/O ANG PCTRS Comment: - Continue Imdur, metoprolol, atorvastatin (8) HLD (hyperlipidemia) Code(s): E78.5 - HYPERLIPIDEMIA, UNSPECIFIED Comment: - Continue atorvastatin (9) GERD (gastroesophageal reflux disease) Code(s): K21.9 - GASTRO-ESOPHAGEAL REFLUX DISEASE WITHOUT ESOPHAGITIS Comment : - Continue pantoprazole (10) DVT prophylaxis Comment: - Lovenox bridging to Coumadin (11) Full code status Code(s): Z78.9 - OTHER SPECIFIED HEALTH STATUS Comment: Status and Disposition: Observation. Transfer back up to the floor. Anticipate d/c home when respiratory status improves, hopefully tomorrow if she is able to be weaned off oxygen. Attending: Radha Nguyen
[2019-07-15] MEDS ORDERED: amLODIPine TAB* 5 MG PO SCH (09:00)
[2019-07-15] MEDS ORDERED: Magnesium Sulfate IV* 3 GM in NS 0.9% 100 ML* 100 ML IVPB ONE (09:30)
[2019-07-15 09:54] LABS: INR 1.87 (0.82-1.09)
[2019-07-15] MEDS: predniSONE TAB* 20 MG PO SCH (09:55)
[2019-07-15] MEDS: Isosorbide Mononitrate ER TAB* 30 MG PO SCH (09:56)
[2019-07-15] MEDS: Warfarin TAB(*) 3 MG PO SCH (09:56)
[2019-07-15] MEDS: Metoprolol Tartrate TAB* 25 MG PO SCH ×2 (09:56→19:51)
[2019-07-15] MEDS: guaiFENesin ER TAB 600 MG PO SCH ×2 (09:57→19:51)
[2019-07-15] MEDS: Gabapentin CAP(*) 100 MG PO SCH ×2 (09:57→19:51)
[2019-07-15] MEDS: Pantoprazole TAB * 40 MG TAB PO SCH (09:57)
[2019-07-15] MEDS: Montelukast Sodium TAB* 10 MG PO SCH (09:58)
[2019-07-15] MEDS: Lithium Carbonate TAB* 300 MG PO SCH ×2 (13:39→19:51)
[2019-07-15] MEDS ORDERED: Nicotine Lozenge* mini 4 MG LOZNG.MINI MT PRN (14:36)
[2019-07-15] MEDS: Enoxaparin(*) 40 MG/0.4 ML SYR SUBCUT SCH (19:51)
[2019-07-15] MEDS: Atorvastatin* 10 MG TAB PO SCH (19:51)
[2019-07-15] MEDS: OLANzapine TAB* 10 MG PO SCH (19:51)
[2019-07-15] MEDS: Gabapentin CAP(*) 300 MG PO SCH (19:52)
[2019-07-15] MEDS: Mirtazapine TAB* 15 MG PO SCH (19:52)
[2019-07-15] MEDS: Azithromycin 500 mg/250 ml NS 500 MG/250 ML BAG IVPB SCH (19:54)
[2019-07-16] MEDS: Albuterol/Ipratropium NEB.SOL* Albuterol 2.5 MG/Ipratropium 0.5 MG 3 ML INH SCH ×3 (01:45→12:12)
[2019-07-16 07:26] LABS: INR 2.94 (0.82-1.09)
[2019-07-16] MEDS: Mometasone/Formoter 200/5 MDI INH SCH (07:37)
[2019-07-16] MEDS: SPIRIVA Respimat* (tiotropium) 2.5 mcg/inh Inhaler INH SCH (07:42)
[2019-07-16] MEDS: guaiFENesin ER TAB 600 MG PO SCH (10:26)
[2019-07-16] MEDS: predniSONE TAB* 20 MG PO SCH (10:26)
[2019-07-16] MEDS: Isosorbide Mononitrate ER TAB* 30 MG PO SCH (10:26)
[2019-07-16] MEDS: Montelukast Sodium TAB* 10 MG PO SCH (10:26)
[2019-07-16] MEDS: Gabapentin CAP(*) 100 MG PO SCH (10:26)
[2019-07-16] MEDS: Lithium Carbonate TAB* 300 MG PO SCH (10:27)
[2019-07-16] MEDS: Warfarin TAB(*) 3 MG PO SCH (10:27)
[2019-07-16] MEDS: Metoprolol Tartrate TAB* 25 MG PO SCH (10:27)
[2019-07-16] MEDS: Pantoprazole TAB * 40 MG TAB PO SCH (10:32)
[2019-07-16 11:58] VITALS: BP 115/55
[2019-07-16 15:26] LABS: Albumin 3.5 g/dL (3.2-5.2); Albumin/Globulin Ratio 1.5 (1-3); Globulin 2.4 g/dL (2-4); Indirect Bilirubin 0.3 mg/dL (0.3-1.0); Total Bilirubin 0.4 mg/dL (0.2-1.0); Total Protein 5.9 g/dL (6.4-8.9)
--- NOTE | 2019-07-16 19:51 | DS ---
CC: Dr. Tom Schrader * DISCHARGE SUMMARY: DATE OF ADMISSION: 07/14/19 DATE OF DISCHARGE: 07/16/19 PRIMARY CARE PROVIDER: Dr. Tom Schrader. ATTENDING PHYSICIAN: Dr. Niya Woods.* (DICTATED BY LUCIE BERNAL NP) PRIMARY DIAGNOSES: 1. Chronic obstructive pulmonary disease exacerbation. 2. Ynrxz-ae-fxfxcxo respiratory failure with hypoxemia and hypercapnia. 3. Viral gastroenteritis. SECONDARY DIAGNOSES: 1. Hypertension. 2. History of deep venous thrombosis. 3. Schizoaffective disorder. 4. Coronary artery disease. 5. Hyperlipidemia. 6. Gastroesophageal reflux disease. STUDIES WHILE IN THE HOSPITAL: 1. EKG on 07/14/19 shows sinus tachycardia with a rate of 105, QTc 491. No ST changes. Q-waves present in inferior leads. 2. Chest x-ray on 07/14/19 reads as no active cardiopulmonary disease. HISTORY OF PRESENT ILLNESS AND HOSPITAL COURSE: Ms. Camejo is a 63-year-old female with past medical history of COPD; chronic respiratory failure, on 2 L of oxygen at night; hypertension; DVT; PAD; CAD; and schizo-affective disorder, who presented to the emergency room on 07/14/19 with complaints of diarrhea. Please see the history and physical by FIONA Ambrose, for a complete summary of the events leading up to this hospitalization. In short, the patient is somewhat of a poor historian and was unable to provide a thorough history, though did report diarrhea for an unknown period of time. She also had developed nausea and vomiting and felt dehydrated, so presented to the emergency room. In the emergency room, the patient was noted to be desaturating on room air and did require 2L of oxygen to maintain saturations in the 90s. For that reason, she was admitted by the hospitalist service. The patient was suspected to have a mild COPD exacerbation, which was contributing to her desaturation. She was started on prednisone and azithromycin for treatment of that. Nausea, vomiting, and diarrhea were suspected to be secondary to viral gastroenteritis. This was supported by the fact that those symptoms resolved the day after admission and the patient has not had any recurrent nausea, vomiting, or diarrhea during her hospital stay. The night of admission, the patient did decompensate overnight and was saturating in the low 80s, so she was transferred to ICU for BiPAP, though ultimately the patient did not tolerate BiPAP. By the next morning, she was able to be weaned down to 2 L of oxygen and she was transferred back out of the ICU. Yesterday, the patient remained stable and she had an uneventful night. This morning, she has been weaned off oxygen. She was able to ambulate on room air, dropping to 88%. At rest, she was noted to be 92% on room air. She is feeling well and offers no complaints. She feels as though her breathing is at baseline. On exam, she is alert and oriented x4 with an odd affect. She has no focal neurological deficits. Her heart has a regular rate and rhythm without murmurs, rubs, or gallops. Lungs are clear, but diminished to auscultation throughout, though there are no rhonchi, wheezes, or rales. There is no edema. Physical exam is otherwise benign. Ms. Camejo is stable for discharge today. Most recent vitals are as follows: Temp 97.3, heart rate 73, respiratory rate 20, oxygen saturation 92% on room air , blood pressure 115/55. DISCHARGE MEDICATIONS: New medications: 1. Azithromycin 250 mg p.o. x3 days. 2. Prednisone taper (40 mg for 3 days, then 30 mg for 3 days, then 20 mg for 3 days, then 10 mg for 3 days). Continued medications: 1. Atorvastatin 10 mg p.o. at bedtime. 2. Esomeprazole 40 mg p.o. daily. 3. Gabapentin 600 mg p.o. at bedtime. 4. Gabapentin 200 mg p.o. b.i.d. 5. Isosorbide mononitrate ER 30 mg p.o. daily. 6. [place] 300 mg p.o. b.i.d. 7. Metoprolol tartrate 25 mg p.o. b.i.d. 8. Mirtazapine 15 mg p.o. at bedtime. 9. Singulair 10 mg p.o. daily. 10. Olanzapine 10 mg p.o. at bedtime. 11. Saline nasal spray 1 spray both nares t.i.d. p.r.n. congestion. 12. Warfarin 4.5 mg p.o. daily. 13. Acetaminophen 650 mg p.o. q.4 hours p.r.n. pain or fever. 14. Albuterol MDI 2 puffs q.4 hours p.r.n. shortness of breath. 15. DuoNeb 1 neb q.4 hours p.r.n. shortness of breath. 16. Amlodipine 10 mg p.o. daily. 17. Ferrous gluconate 324 mg p.o. daily. 18. Maalox 15 mL p.o. daily. 19. Lubricant eye drops 2 drops right eye q.i.d. p.r.n. dry eye. 20. Anoro Ellipta 62.5/25 one puff daily. Discontinued medication: 1. Breo Ellipta. DISCHARGE PLAN: Ms. Camejo will be discharged home. Activity will be as tolerated. Diet will be heart-healthy. Medications are noted above. The patient has been prescribed 3 additional days of azithromycin to complete a total of 5 days for her COPD exacerbation. I have additionally prescribed an extended prednisone taper as she has had multiple hospitalizations this year for COPD exacerbation and I think she certainly warrants a longer taper. She can continue her other usual medications as noted above with the exception of Breo Ellipta. It looks as though the patient has recently filled prescriptions for Anoro Ellipta and Breo Ellipta which is redundant. She filled the Anoro Ellipta more recently, so she can continue this. The patient's INR remains therapeutic, so she can continue her usual dose of Coumadin. She will need to follow up with her primary care provider in the next 4 to 7 days. She has been advised to return to the emergency room or nearest hospital for any worsening of symptoms, shortness of breath, lightheadedness, dizziness, chest discomfort, high fevers, chills, night sweats, loss of consciousness, or any other worrisome signs or symptoms. DISCHARGE CONDITION: Stable. DISCHARGE DISPOSITION: Home. This is a summarized report of a complex medical history and hospital stay. For further details, please see the entire medical record. TIME SPENT: Approximately 50 minutes was spent on this discharge. LUCIE BERNAL, RESTORATIVE REHAB AIDE [id number]/[facility] #: [id number] ANNITA
== END 2019-07-16 14:45 | disposition home or self-care (01) ==
LOC: ED 16:43 → MED 19:29 → ICU 07-15 00:34 → MED 07-15 09:01
PROVIDERS: ADMIT Internal Medicine; ATTEND Internal Medicine
DX: J44.1 Chronic obstructive pulmonary disease with (acute) exacerbation (principal); J96.22 Acute and chronic respiratory failure with hypercapnia; J96.21 Acute and chronic respiratory failure with hypoxia; A08.4 Viral intestinal infection, unspecified; K52.9 Noninfective gastroenteritis and colitis, unspecified; I10 Essential (primary) hypertension; Z86.718 Personal history of other venous thrombosis and embolism; F25.9 Schizoaffective disorder, unspecified; I25.10 Atherosclerotic heart disease of native coronary artery without angina pectoris; E78.5 Hyperlipidemia, unspecified; K21.9 Gastro-esophageal reflux disease without esophagitis; I73.9 Peripheral vascular disease, unspecified; Z79.899 Other long term (current) drug therapy; R94.31 Abnormal electrocardiogram [ECG] [EKG]; Z88.0 Allergy status to penicillin; Z79.01 Long term (current) use of anticoagulants; F17.210 Nicotine dependence, cigarettes, uncomplicated
CPT/HCPCS: 36415; 36600; 71045; 80048; 80053; 80076; 80178; 82803; 83605; 83735; 84484; 85025; 85610; 85730; 87040; 87641; 93005; 94640; 94660; 96361; 96365; 96366; 96367; 96372; 96375; 99284; A9270-GY; G0378; J0456; J1650; J2930; J3475; J3535; J7512

== ENCOUNTER 2019-11-06 09:21 | Inpatient (IN) | payer MEDICARE, MEDICAID ==
[2019-11-06] MEDS ORDERED: Albuterol/Ipratropium NEB.SOL* Albuterol 2.5 MG/Ipratropium 0.5 MG 3 ML INH ONE ×3 (09:36→12:25)
[2019-11-06] MEDS ORDERED: Magnesium Sulfate 2 GM IV* 2 GM/50 ML BAG IVPB ONE (09:38)
--- NOTE | 2019-11-06 09:39 | ED ---
Shortness of Breath - HPI Summary HPI Summary: 64 year old female with history of copd and dvts presents with shortness breath for past week. States that she's been around her family that has been sick. States she's been having productive cough. She admits to chest pain and back pain from coughing. She denies any nausea vomiting. She just doesn't feel well. She is on warfarin for history of DVTs. she denies any increase in weight or swelling to legs. states that she has had sinus congestion. She is on oxygen at night 2 liters. She states that she has not felt well enough to smoke. she admits to chills but no known fever. - History of Current Complaint Chief Complaint: EDGeneral Time Seen by Provider: 11/06/19 09:32 - Allergy/Home Medications Allergies/Adverse Reactions: Allergies Allergy/AdvReac Type Severity Reaction Status Date / Time bupropion [From Wellbutrin] Allergy Agitation Verified 11/06/19 09:56 Cephalosporins Allergy Agitation Verified 11/06/19 09:56 chlorproethazine Allergy Agitation Verified 11/06/19 09:56 erythromycin base Allergy Diarrhea Verified 11/06/19 09:56 Penicillins Allergy Hives Verified 11/06/19 09:56 tobramycin Allergy Diarrhea Verified 11/06/19 09:56 doxycycline AdvReac Severe See Comment Verified 11/06/19 09:56 Home Medications: Home Medications Esomeprazole(NF) [Nexium(NF)] 40 mg PO DAILY #30 cap 07/04/17 [Rx Confirmed ] [place] Carbonate TAB* 300 mg PO BID #30 tab 07/04/17 [Rx Confirmed 11/06/19] Isosorbide Mononitrate ER TAB* [Imdur ER TAB*] 30 mg PO DAILY 08/17/18 [History Confirmed 11/06/19] OLANzapine TAB* [Zyprexa 10 MG TAB*] 10 mg PO BEDTIME 08/17/18 [History Confirmed 11/06/19] amLODIPine TAB* [Norvasc 5 mg TAB*] 10 mg PO DAILY 08/17/18 [History Confirmed 11/06/19] Montelukast Sodium TAB* [Singulair 10 MG TAB*] 10 mg PO DAILY 12/23/18 [History Confirmed 11/06/19] Atorvastatin* [Lipitor 10 MG*] 10 mg PO DAILY 06/05/19 [History Confirmed ] Gabapentin CAP(*) [Neurontin 300 CAP(*)] 300 - 600 mg PO BEDTIME 06/05/19 [ History Confirmed 11/06/19] Umeclidin/Vilant 62.5 MDI(NF) [ANORO 62.5/25 Ellipta DEVICE (NF)] 1 puff INH DAILY 06/05/19 [History Confirmed 11/06/19] Warfarin TAB(*) [Coumadin TAB(*)] 4.5 mg PO DAILY 06/05/19 [History Confirmed ] Albuterol/Ipratropium NEB.GINETTE* [Duoneb (Albuterol 2.5 MG/Ipratropium 0.5 MG)] 1 neb INH Q4H PRN 07/14/19 [History Confirmed 11/06/19] Ferrous Gluconate TAB* [Fergon TAB*] 324 mg PO DAILY 07/14/19 [History Confirmed 11/06/19] Gabapentin CAP(*) [Neurontin 100 mg CAP(*)] 200 mg PO BID 07/14/19 [History Confirmed 11/06/19] Mag Hydrox/Aluminum Hyd/Simeth [Maalox Maximum Strength Susp] 15 ml PO DAILY 12/27 [History Confirmed 11/06/19] Metoprolol Tartrate TAB* [Lopressor TAB*] 25 mg PO BID 07/14/19 [History Confirmed 11/06/19] Mirtazapine TAB* [Remeron TAB*] 15 mg PO BEDTIME 07/14/19 [History Confirmed ] Propylene Glycol/Peg 400/Pf [Lubricant Eye 0.4%-0.3% Drop] 2 drop RIGHT EYE QID PRN 07/14/19 [History Confirmed 11/06/19] Saline NASAL SPRAY 0.65%* [Sodium Chloride 0.65% Nasal [place]*] 1 spray BOTH NARES TID PRN 07/14/19 [History Confirmed 11/06/19] ALPRAZolam TAB* [Xanax TAB*] 0.25 mg PO Q8H PRN 11/06/19 [History Confirmed ] Albuterol HFA INHALER* [Ventolin HFA Inhaler*] 2 puff INH Q4H PRN 11/06/19 [ History Confirmed 11/06/19] Fluticasone NASAL SPRAY 50MCG* [Flonase NASAL SPRAY 50MCG*] 2 spray BOTH NARES DAILY 11/06/19 [History Confirmed 11/06/19] Fluticasone/Vilanterol [Breo Ellipta 200-25 Mcg INH] 1 puff INH DAILY 11/06/19 [ History Confirmed 11/06/19] Hydrocodone/Acetaminophen [Hydrocodone/Acetaminophen 5-325 mg] 1 tab PO Q6H PRN 11/06/19 [History Confirmed 11/06/19] Mag Hydrox/Aluminum Hyd/Simeth [Antacid Anti-Gas Liquid] 5 ml PO DAILY 11/06/19 [History Confirmed 11/06/19] Morphine Sulfate 20mg/Ml 0.5 ml PO Q3H PRN 11/06/19 [History Confirmed 11/06/19] Prednisolone Sod Phosphate [Prednisolone Sodium Phosp] 10 mg PO DAILY 11/06/19 [ History Confirmed 11/06/19] Triamcinolone Acetonide [Triderm] 0.5 % TOPICAL BID 11/06/19 [History Confirmed 11/06/19] Umeclidinium [place] [Incruse Ellipta] 1 puff INH DAILY 11/06/19 [History Confirmed 11/06/19] PMH/Surg Hx/FS Hx/Imm Hx Endocrine/Hematology History: Reports: Hx Anticoagulant Therapy, Hx Anemia, Other Endocrine/Hematological Disorders - L leg DVT Denies: Hx Diabetes, Hx Systemic Lupus Erythematosus, Hx Thyroid Disease Cardiovascular History: Reports: Hx Angina, Hx Coronary Artery Disease, Hx Deep Vein Thrombosis, Hx Hypercholesterolemia, Hx Hypertension, Hx Peripheral Vascular Disease, Other Cardiovascular Problems/Disorders - PERIPHERAL ARTERY DISEASE; CAD; DVT Denies: Hx Auto Implanted Cardiovert Defib, Hx Congestive Heart Failure, Hx Pacemaker/ICD Respiratory History: Reports: Hx Asthma, Hx Chronic Bronchitis, Hx Chronic Obstructive Pulmonary Disease (COPD) - 2L at home, Hx Pneumonia, Hx Seasonal Allergies, Other Respiratory Problems/Disorders - PNA Denies: Hx Cystic Fibrosis, Hx Lung Cancer, Hx Pleural Effusion, Hx Pulmonary Edema, Hx Pulmonary Embolism, Hx Sleep Apnea GI History: Reports: Hx Gall Bladder Disease - removed, Hx Gastroesophageal Reflux Disease, Hx Irritable Bowel, Other GI Disorders - hernia repair X 2 Denies: Hx Cirrhosis, Hx Crohn's Disease, Hx Diverticulosis History: Denies: Hx Dialysis, Hx Renal Disease Musculoskeletal History: Denies: Hx Arthritis, Hx Rheumatoid Arthritis, Hx Osteoporosis Sensory History: Denies: Hx Contacts or Glasses, Hx Glaucoma, Hx Deafness, Hx Hearing Aid, Hx Hearing Problem Opthamlomology History: Denies: Hx Contacts or Glasses, Hx Glaucoma Neurological History: Denies: Hx Headaches, Hx Seizures, Hx Transient Ischemic Attacks (TIA) Psychiatric History: Reports: Hx Anxiety, Hx Depression, Hx Inpatient Treatment , Hx Community Mental Health Tx, Hx Schizophrenia, Hx Bipolar Disorder, Hx Suicide Attempt Denies: Hx Eating Disorder, Hx Panic Disorder, Hx of Violent Episodes Against Others - Cancer History Hx Chemotherapy: No - Surgical History Surgery Procedure, Year, and Place: bilat thumb repairs, hernia repairs X 2, cholecystectomy, appendectomy Hx Anesthesia Reactions: No - Immunization History Date of Tetanus Vaccine: UTD Date of Influenza Vaccine: 06/2018 Infectious Disease History: No Infectious Disease History: Denies: Hx Clostridium Difficile, Hx Hepatitis, Hx Human Immunodeficiency Virus (HIV), Hx of Known/Suspected MRSA, Hx Shingles, Hx Tuberculosis, Traveled Outside the [place] in Last 30 Days - Family History Known Family History: Positive: Cardiac Disease - ID, Other - schizophrenia, anxiety Negative: Hypertension, Diabetes Family History: Negative HTN/DM per EMR - Social History Alcohol Use: None Hx Substance Use: No Substance Use Type: Reports: None Hx Tobacco Use: Yes Smoking Status (MU): Current Every Day Smoker Type: Cigarettes Amount Used/How Often: 1 PPD Have You Smoked in the Last Year: Yes Review of Systems Positive: Fatigue. Negative: Fever Positive: Chest Pain Positive: Shortness Of Breath, Cough All Other Systems Reviewed And Are Negative: Yes Physical Exam Triage Information Reviewed: Yes Vital Signs On Initial Exam: Initial Vitals Temp Pulse Resp BP Pulse Ox 98.7 F 114 22 140/77 96 11/06/19 09:27 11/06/19 09:27 11/06/19 09:27 11/06/19 09:11/06/19 09:27 Vital Signs Reviewed: Yes Appearance: Positive: Well-Appearing Skin: Positive: Warm, Dry Head/Face: Positive: Normal Head/Face Inspection Eyes: Positive: Normal, EOMI, CRISTIAN, Conjunctiva Clear ENT: Positive: Normal ENT inspection, Pharynx normal, TMs normal Respiratory/Lung Sounds: Positive: Decreased Breath Sounds, Wheezes Cardiovascular: Positive: Normal, RRR Abdomen Description: Positive: Nontender, Soft Bowel Sounds: Positive: Present Musculoskeletal: Positive: Normal Neurological: Positive: Normal Psychiatric: Positive: Normal Procedures - Sedation Patient Received Moderate/Deep Sedation with Procedure: No Diagnostics - Vital Signs Vital Signs Temp Pulse Resp BP Pulse Ox 11/06/19 09:27 98.7 F 114 22 140/77 96 - Laboratory Result Diagrams: 11/06/19 10:11 11/06/19 10:12 Lab Statement: Any lab studies that have been ordered have been reviewed, and results considered in the medical decision making process. - Radiology chest Radiology Interpretation Completed By: Radiologist Summary of Radiographic Findings: IMPRESSION: No active cardiopulmonary disease is noted. - EKG No standard instances Cardiac Rate: Tachycardia EKG Rhythm: Sinus Tachycardia Summary of EKG Findings: sinus tachycardia Re-Evaluation - Re-Evaluation First Eval Re-Evaluation Time: 11:50 Change: Improved Comment: feeling a bit better, is able to speak in full sentences Second Eval Re-Evaluation Time: 12:37 Change: Unchanged Comment: breathing treatment did not help, decreased oxygen to 3 liters Course/Dx - Course Course Of Treatment: 64-year-old presents with cough for the past week. she's had to increase her oxygen at home which she normally is at night. She came in by EMS and was having work of breathing. She was only able to speak in short sentences. EMS gave her DuoNeb. On exam is tachypneic and wheezes noted. Gave duoneb, solu-medrol magnesium with some improvement. ABG shows patient is hypoxic and retaining CO2. wbc normal. Chest x-ray normal. We'll give dose of doxycycline with worsening cough. CRP elevated. Dr. Denney recommends admission. discussed with dr Hay who agrees to admit. - Diagnoses Differential Diagnosis/HQI/PQRI: Positive: Bronchitis, COPD Exacerbation, Pneumonia Provider Diagnoses: COPD (chronic obstructive pulmonary disease) Discharge ED - Sign-Out/Discharge Documenting (check all that apply): Patient Departure - Discharge Plan Condition: Stable Disposition: ADMITTED TO [facility] - Billing Disposition and Condition Condition: STABLE Disposition: Admitted to [facility]
[2019-11-06] MEDS ORDERED: methylPREDNISolone 125 MG* 2 ML VIAL IV ONE (09:43)
[2019-11-06 10:23] LABS: ABS Eosinophils 0.1 10^3/ul (0-0.6); ABS Lymphocytes 0.7 10^3/ul (1.0-4.8); ABS Monocytes 0.9 10^3/ul (0-0.8); ABS Neutrophils 6.3 10^3/ul (1.5-7.7); Hematocrit 37 % (35-47); Hemoglobin 12.4 g/dL (12.0-16.0); Mean Corpuscular HGB Conc 33 g/dL (31-36); Mean Corpuscular Hemoglobin 28 pg (27-31); Mean Corpuscular Volume 86 fL (80-97); Mean Platelet Volume 8.8 fL (7.4-10.4); Platelet Count 129 10^3/uL (150-450); Red Blood Count 4.35 10^6 /uL (3.70-4.87); Red Cell Distribution Width 15 % (10-15)
[2019-11-06 10:31] LABS: INR 2.28 (0.82-1.09)
[2019-11-06 10:47] LABS: Albumin 3.9 g/dL (3.2-5.2); Albumin/Globulin Ratio 1.3 (1-3); BUN/Creatinine Ratio 16.7 (8-20); C Reactive Protein 204.07 mg/L (<8.01); Calcium 10.3 mg/dL (8.6-10.3); EGFR African American 62.2 (>60); EGFR Non-African American 51.4 (>60); Magnesium 3.1 mg/dL (1.9-2.7); Potassium 4.3 mmol/L (3.5-5.0); Total Bilirubin 0.5 mg/dL (0.2-1.0); Total Protein 6.9 g/dL (6.4-8.9)
[2019-11-06 10:48] LABS: Troponin I 0.01 ng/mL (<0.03)
[2019-11-06] MEDS ORDERED: DOXYcycline CAP(*) 100 MG PO ONE (11:59)
[2019-11-06] MEDS ORDERED: NS 0.9% 1000 ML** 1,000 ML IV.FLUID IV ONE (12:01)
--- NOTE | 2019-11-06 12:01 | CONSULT ---
Consult Consult: I personally evaluated the patient. Briefly this is a 64-year-old female with a history of COPD, who presents for 2 weeks of progressive shortness of breath. She does report increased cough, which has been nonproductive. Lung sounds are significant for mild wheezes. She's been tachypneic and came in on rescue CPAP. She has a history of venous thromboembolism is currently therapeutic on anticoagulation. discussion with Roseanne oakes recommend admission to hospital as she is currently on 4 L supplemental oxygen, also treated for possible underlying pneumonia, consider pulmonary embolism. I will defer further imaging for pulmonary embolism to the admitting team. Begin SEPSIS protocol
[2019-11-06 12:58] LABS: Influenza A Molecular Negative (Negative); Influenza B Molecular Negative (Negative)
[2019-11-06] MEDS ORDERED: ALPRAZolam TAB* 0.25 MG PO ONE (13:04)
[2019-11-06] MEDS ORDERED: Albuterol/Ipratropium NEB.SOL* Albuterol 2.5 MG/Ipratropium 0.5 MG 3 ML INH PRN (13:33)
[2019-11-06] MEDS ORDERED: Saline NASAL SPRAY 0.65%* BTL BOTH NARES PRN (13:33)
[2019-11-06] MEDS ORDERED: Enoxaparin(*) 40 MG/0.4 ML SYR SUBCUT SCH (14:00)
--- NOTE | 2019-11-06 16:44 | HP ---
CC: Dr. Tom Schrader * HISTORY AND PHYSICAL: DATE OF ADMISSION: 11/06/19 PRIMARY CARE PROVIDER: Dr. Tom Schrader. CHIEF COMPLAINT: Shortness of breath. SUBJECTIVE: This is a 64-year-old female with known history of COPD and DVTs in the past, presented to the emergency room with sudden onset shortness of breath started last evening, which was severe to the point had difficulty sleeping, finally this morning she decided to come to the emergency room for further evaluation. On further questioning, she states that she has been feeling sick for about a week with coughing, congestion, occasionally productive cough, but mostly was dry. She is still actively smoking. She stopped smoking about 2 to 3 days ago given her severe dyspnea. Denies any loss of consciousness. No diaphoresis, but she feels exhausted, fatigued mainly from her rapid breathing. She normally takes 2 L nasal cannula at home and she was requiring 4 L here in the emergency room. Denies sick contacts. No recent travel. No recent exposure to viral illness or travel outside the country. PAST MEDICAL HISTORY: 1. History of COPD, on chronic home O2. 2. History of DVT, on chronic anticoagulation with warfarin. 3. Peripheral arterial disease. 4. Coronary artery disease. 5. Schizoaffective disorder. PAST SURGICAL HISTORY: 1. Appendectomy. 2. Hernia repairs. MEDICATIONS: She is on: 1. Warfarin 4.5 mg daily. 2. Albuterol 2 puffs every 4 hours as needed. 3. Singulair 10 mg daily. 4. Flonase 2 sprays per nostril daily. 5. Neurontin 200 mg 3 times a day. 6. Lipitor 10 mg daily. 7. Isosorbide 30 mg daily. 8. Anoro 62.5/25 one puff daily. 9. Remeron 15 mg at bedtime. 10. [place] 300 mg b.i.d. 11. Xanax 0.25 every 8 hours as needed. 12. Amlodipine 10 mg daily. 13. Zyprexa 10 mg at bedtime. 14. Nexium 40 mg daily. 15. Lopressor 25 mg b.i.d. ALLERGIES: She is allergic to BUPROPION, CEPHALOSPORIN, CHLORPROETHAZINE. FAMILY HISTORY: Both parents had emphysema. Mother at age 70 from COPD. Father in the 70s from [place]. SOCIAL HISTORY: She has active smoking history 45-pack year. Denies any illicit drug use. No alcohol use. REVIEW OF SYSTEMS: As per HPI, remaining otherwise negative. PHYSICAL EXAMINATION GENERAL: She is sitting in bed, lip pursing, using minimally her accessory muscles on the neck, in no apparent distress. She is able to provide history in short sentences. VITAL SIGNS: Her pulse is 108; respiratory rate was as high as 40, down to 22; saturation was as low as 88% to 89%, currently she is on 3 L saturating 93%; blood pressure 144/58. LUNGS: Poor air flow. I did not appreciate any rhonchi, but she does have fine expiratory wheeze. CARDIOVASCULAR: S1, S2. Tachycardic. I did not appreciate any murmur. ABDOMEN: Positive bowel sounds. Soft, nontender. EXTREMITIES: Positive clubbing. Poor hygiene with thick scaly skin lower extremities. DIAGNOSTIC STUDIES/LAB DATA: CBC shows white count 8, hemoglobin 12, hematocrit 37, platelets 129. INR 2.8. ABG; pH 7.3, pCO2 52, pO2 77, satting 97%. Chemistry: Sodium 136, potassium 4.3, BUN 18, creatinine 1.08, glucose 121 , lactic acid 0.6, magnesium 3.1. AST 11, ALT 10. CRP 204. BNP 77. Influenza A and B negative. Chest x-ray: I did not appreciate any acute infiltrate. Prominent retrosternal airspace. No infiltrate appreciated. EKG reveals sinus tachycardia, rate 115, NH 166, QRS 89, QTc 447, normal axis at 81. IMPRESSION AND PLAN: This is a 64-year-old female presented to the emergency room for: 1. Acute shortness of breath secondary to acute exacerbation of chronic obstructive pulmonary disease. We will admit her to the medical floor. We will put her on nasal cannula and we will titrate to maintain her saturation 88 % to 92%. Status post Solu-Medrol 125, we will continue at 40 mg IV q.6 and transition according to her clinical response to oral prednisone. Status post doxycycline in the emergency room, we will continue her on doxycycline 100 mg p.o. b.i.d. Albuterol q.4 hours p.r.n. Continue her home medication, Anoro. Mucinex 600 mg b.i.d. Xanax 0.25 mg q.8 hours for anxiety. Unlikely to be pulmonary embolism as her INR is therapeutic on her current warfarin 4.5 mg daily. 2. History of hypertension. Continue her amlodipine and metoprolol 25 b.i.d. 3. For her hyperlipidemia, continue Lipitor 10 mg daily. 4. For her gastroesophageal reflux disease, continue her PPI. May substitute Nexium for Protonix if nonformulary. 5. Schizoaffective disorder. Continue her lithium 300 mg b.i.d. We will check her lithium level in the morning. We will check TSH level and LFTs. 6. History of deep venous thrombosis. Continue her warfarin 4.5 mg daily. Check INR daily. [id number]/[facility] #: [id number] ANNITA
[2019-11-06] MEDS: Warfarin TAB(*) 2 MG PO SCH (17:18)
[2019-11-06] MEDS: Warfarin TAB(*) 2.5 MG PO SCH (17:18)
[2019-11-06] MEDS: methylPREDNISolone SOD 40 MG* 1 ML VIAL IV SCH ×2 (17:18→20:25)
[2019-11-06] MEDS: Gabapentin CAP(*) 100 MG PO SCH (20:11)
[2019-11-06] MEDS: Metoprolol Tartrate TAB* 25 MG PO SCH (20:11)
[2019-11-06] MEDS: DOXYcycline CAP(*) 100 MG PO SCH (20:11)
[2019-11-06] MEDS: Mirtazapine TAB* 15 MG PO SCH (20:11)
[2019-11-06] MEDS: guaiFENesin ER TAB 600 MG PO SCH (20:11)
[2019-11-06] MEDS: Lithium Carbonate TAB* 300 MG PO SCH (20:12)
[2019-11-06] MEDS ORDERED: OLANzapine TAB* 10 MG PO SCH (21:00)
[2019-11-07] MEDS: methylPREDNISolone SOD 40 MG* 1 ML VIAL IV SCH ×4 (02:05→19:51)
[2019-11-07 06:10] LABS: ABS Lymphocytes 0.3 10^3/ul (1.0-4.8); ABS Monocytes 0.1 10^3/ul (0-0.8); ABS Neutrophils 3.3 10^3/ul (1.5-7.7); Hematocrit 32 % (35-47); Hemoglobin 10.7 g/dL (12.0-16.0); Lymphocyte % 8.5 %; Mean Corpuscular HGB Conc 34 g/dL (31-36); Mean Corpuscular Hemoglobin 29 pg (27-31); Mean Corpuscular Volume 86 fL (80-97); Nucleated Red Blood Cells % 0.2; Platelet Count 111 10^3/uL (150-450); Red Blood Count 3.69 10^6 /uL (3.70-4.87); Red Cell Distribution Width 15 % (10-15); White Blood Count 3.7 10^3/uL (3.5-10.8)
[2019-11-07 06:18] LABS: INR 2.96 (0.82-1.09)
[2019-11-07 06:26] LABS: Albumin 3.8 g/dL (3.2-5.2); Albumin/Globulin Ratio 1.5 (1-3); Calcium 10.1 mg/dL (8.6-10.3); EGFR African American 74.8 (>60); EGFR Non-African American 61.9 (>60); Globulin 2.6 g/dL (2-4); Indirect Bilirubin 0.1 mg/dL (0.3-1.0); Magnesium 1.9 mg/dL (1.9-2.7); Total Bilirubin 0.2 mg/dL (0.2-1.0); Total Protein 6.4 g/dL (6.4-8.9)
[2019-11-07 06:27] LABS: Potassium 5.1 mmol/L (3.5-5.0)
[2019-11-07 06:52] LABS: TSH (Thyroid Stimulating Horm) 0.46 mcIU/mL (0.34-5.60)
[2019-11-07] MEDS: Isosorbide Mononitrate ER TAB* 30 MG PO SCH (09:11)
[2019-11-07] MEDS: guaiFENesin ER TAB 600 MG PO SCH ×2 (09:11→19:53)
[2019-11-07] MEDS: amLODIPine TAB* 5 MG PO SCH (09:11)
[2019-11-07] MEDS: Montelukast Sodium TAB* 10 MG PO SCH (09:11)
[2019-11-07] MEDS: Metoprolol Tartrate TAB* 25 MG PO SCH ×2 (09:11→19:54)
[2019-11-07] MEDS: Atorvastatin* 10 MG TAB PO SCH (09:11)
[2019-11-07] MEDS: Pantoprazole TAB * 40 MG TAB PO SCH (09:11)
[2019-11-07] MEDS: Gabapentin CAP(*) 100 MG PO SCH ×2 (09:11→19:52)
[2019-11-07] MEDS: DOXYcycline CAP(*) 100 MG PO SCH ×2 (09:11→19:53)
[2019-11-07] MEDS: Lithium Carbonate TAB* 300 MG PO SCH ×2 (09:12→19:54)
[2019-11-07] MEDS: Fluticasone NASAL SPRAY 50MCG* 16 gm SPRAY BTL BOTH NARES SCH (09:15)
[2019-11-07] MEDS: Ferrous Gluconate TAB* 324 MG TAB PO SCH (10:44)
[2019-11-07] MEDS: Tiotropium Brom/Olodaterol MDI INH SCH (12:08)
--- NOTE | 2019-11-07 14:34 | PN ---
Subjective Date of Service: 11/07/19 Interval History: Patient seen and examined at bedside Daina is a 64 yo female, admitted yesterday with concern for SOB. Reports that it is slightly better but she still feels SOB and gets winded easily. She is fatigued. Denies fever/chills, denies CP. Reports she has oxygen she is supposed to use during the day, but she doesn't use it because she doesn't feel like she needs it. Family History: Unchanged from Admission Social History: Unchanged from Admission Past Medical History: Unchanged from Admission Objective Active Medications: Albuterol/Ipratropium (Duoneb (Albuterol 2.5 Mg/Ipratropium 0.5 Mg)) 1 neb INH Q4H PRN PRN Reason: SHORTNESS OF BREATH Last Admin: 11/07/19 04:11 Dose: 1 neb Alprazolam (Xanax Tab*) 0.25 mg PO Q8H PRN PRN Reason: ANXIETY Amlodipine Besylate (Norvasc Tab*) 10 mg PO DAILY [facility] Last Admin: 11/07/19 09:11 Dose: 10 mg Atorvastatin Calcium (Lipitor*) 10 mg PO DAILY [facility] Last Admin: 11/07/19 09:11 Dose: 10 mg Doxycycline Hyclate (Vibramycin Cap(*)) 100 mg PO BID [facility] Last Admin: 11/07/19 09:11 Dose: 100 mg Ferrous Gluconate (Fergon Tab*) 324 mg PO 1100 [facility] Last Admin: 11/07/19 10:44 Dose: 324 mg Fluticasone Propionate (Flonase Nasal [place] 50mcg*) 2 spray BOTH NARES DAILY [facility] Last Admin: 11/07/19 09:15 Dose: 2 spray Gabapentin (Neurontin Cap(*)) 200 mg PO BID [facility] Last Admin: 11/07/19 09:11 Dose: 200 mg Guaifenesin (Mucinex*) 600 mg PO BID [facility] Last Admin: 11/07/19 09:11 Dose: 600 mg Isosorbide Mononitrate (Imdur Er Tab*) 30 mg PO DAILY [facility] Last Admin: 11/07/19 09:11 Dose: 30 mg [place] Carbonate ([place] Carbonate Tab*) 300 mg PO BID [facility] Last Admin: 11/07/19 09:12 Dose: 300 mg Methylprednisolone Sodium Succinate (Solu-Medrol 40 Mg) 40 mg IV Q6H [facility] Last Admin: 11/07/19 09:11 Dose: 40 mg Metoprolol Tartrate (Lopressor Tab*) 25 mg PO BID [facility] Last Admin: 11/07/19 09:11 Dose: 25 mg Mirtazapine (Remeron Tab*) 15 mg PO BEDTIME [facility] Last Admin: 11/06/19 20:11 Dose: 15 mg Montelukast Sodium (Singulair Tab*) 10 mg PO DAILY [facility] Last Admin: 11/07/19 09:11 Dose: 10 mg Olanzapine (Zyprexa Tab*) 10 mg PO BEDTIME [facility] Last Admin: 11/06/19 20:12 Dose: 10 mg Pantoprazole Sodium (Protonix Tab*) 40 mg PO DAILY [facility]; Protocol Last Admin: 11/07/19 09:11 Dose: 40 mg Sodium Chloride (Sodium Chloride 0.65% Nasal [place]*) 1 spray BOTH NARES TID PRN PRN Reason: CONGESTION Tiotropium [place]/Olodaterol (Stiolto Respimat Inh [place] (60 Puff)) 2 puff INH DAILY [facility] Last Admin: 11/07/19 12:08 Dose: 2 puff Warfarin Sodium (Coumadin Tab(*)) 2.5 mg PO 1700 [facility]; Protocol Last Admin: 11/06/19 17:18 Dose: 2.5 mg Warfarin Sodium (Coumadin Tab(*)) 2 mg PO 1700 [facility] Last Admin: 11/06/19 17:18 Dose: 2 mg Vital Signs - 8 hr 11/07/19 11/07/19 11/07/19 07:15 08:00 09:11 Temperature 97.8 F Pulse Rate 82 Respiratory 22 22 22 Rate Blood Pressure 132/49 (mmHg) O2 Sat by Pulse 97 Oximetry 11/07/19 11/07/19 11:15 12:05 Temperature 97.6 F Pulse Rate 78 73 Respiratory 22 22 Rate Blood Pressure 138/49 (mmHg) O2 Sat by Pulse 97 94 Oximetry Oxygen Devices in Use Now: Nasal Cannula Appearance: 64 yo female, sitting up in bed. Becomes dyspneic with conversation , speaking in short sentences. Pursed lip breathing noted. Eyes: No Scleral Icterus, PERRLA Ears/Nose/Mouth/Throat: Clear Oropharnyx, Mucous Membranes Moist Neck: NL Appearance and Movements; NL JVP Respiratory: Symmetrical Chest Expansion and Respiratory Effort, - - inspiratory and expiratory wheezing Cardiovascular: NL Sounds; No Murmurs; No JVD, RRR Abdominal: NL Sounds; No Tenderness; No Distention Lymphatic: No Cervical Adenopathy Extremities: - - chronic changes to lower extremities, + clubbing, no cyanosis Neurological: Alert and Oriented x 3, NL Muscle Strength and Tone Nutrition: Taking PO's Result Diagrams: 11/07/19 05:51 11/07/19 05:51 Microbiology and Other Data: Microbiology 11/06/19 11:17 Aerobic Blood Culture - Preliminary Blood Venous No Growth Day 1 Anaerobic Blood Culture - Preliminary No Growth Day 1 11/06/19 10:17 Aerobic Blood Culture - Preliminary Blood Venous No Growth Day 1 Anaerobic Blood Culture - Preliminary No Growth Day 1 Assess/Plan/Problems-Billing Assessment: Ms. Camejo is a 64 yo female with a PMH significant for COPD, chronic resp failure, DVT with chronic anticoagulation, PAD, CAD, and schizoaffective do who presented to the ER on 11/06 with concern for SOB likely 2/2 to COPD exacerbation. - Patient Problems (1) COPD exacerbation Code(s): J44.1 - CHRONIC OBSTRUCTIVE PULMONARY DISEASE W (ACUTE) EXACERBATION Comment: Presented with acute SOB and hypoxic resp failure Continue supplemental O2 Continue IV solu-medrol, as she is still quite dyspneic Continue doxycycline, guaifenesin, prn albuterol, Anoro Ellipta (2) Acute and chronic respiratory failure with hypoxia Code(s): J96.21 - ACUTE AND CHRONIC RESPIRATORY FAILURE WITH HYPOXIA Comment: With sats in 80s, now on 2Lnc with O2 sats in low 90s Patient is supposed to be on O2 chronically (3) Hx of deep venous thrombosis Code(s): Z86.718 - PERSONAL HISTORY OF OTHER VENOUS THROMBOSIS AND EMBOLISM Comment: INR 2.96 Continue warfarin 4.5 mg (4) HTN (hypertension) Code(s): I10 - ESSENTIAL (PRIMARY) HYPERTENSION Comment: With acceptable control (SBP 120s-140s) Continue home isosorbide, metoprolol, amlodipine (5) HLD (hyperlipidemia) Code(s): E78.5 - HYPERLIPIDEMIA, UNSPECIFIED Comment: Continue atorvastatin (6) GERD (gastroesophageal reflux disease) Code(s): K21.9 - GASTRO-ESOPHAGEAL REFLUX DISEASE WITHOUT ESOPHAGITIS Comment : Continue pantoprazole (7) CAD (coronary artery disease) Code(s): I25.10 - ATHSCL HEART DISEASE OF [place] CORONARY ARTERY W/O ANG PCTRS Comment: Continue Imdur, metoprolol, atorvastatin (8) Schizoaffective disorder, bipolar type Code(s): F25.0 - SCHIZOAFFECTIVE DISORDER, BIPOLAR TYPE Comment: Continue olanzapine, mirtazapine, lithium, gabapentin Also on alprazolam prn (9) DVT prophylaxis Comment: Warfarin (10) Full code status Code(s): Z78.9 - OTHER SPECIFIED HEALTH STATUS Comment: Status and Disposition: Inpatient admission. D/c to home when medically stable. Attending: Radha Nguyen
[2019-11-07] MEDS: Warfarin TAB(*) 2 MG PO SCH (16:56)
[2019-11-07] MEDS: Warfarin TAB(*) 2.5 MG PO SCH (16:57)
[2019-11-07] MEDS: OLANzapine TAB* 5 MG PO SCH (19:53)
[2019-11-07] MEDS: Mirtazapine TAB* 15 MG PO SCH (19:54)
[2019-11-07] MEDS: Nicotine PATCH 14 MG/24 HR* PATCH TRANSDERM SCH (21:01)
[2019-11-07] MEDS: ALPRAZolam TAB* 0.25 MG PO PRN (22:38)
[2019-11-08] MEDS: methylPREDNISolone SOD 40 MG* 1 ML VIAL IV SCH ×2 (02:38→09:36)
[2019-11-08] MEDS: Nicotine Patch Removal NOTE FOLLOW UP SCH ×2 (05:50→22:30)
[2019-11-08 05:51] LABS: ABS Lymphocytes 0.4 10^3/ul (1.0-4.8); ABS Monocytes 0.2 10^3/ul (0-0.8); ABS Neutrophils 4.4 10^3/ul (1.5-7.7); Hematocrit 34 % (35-47); Hemoglobin 10.9 g/dL (12.0-16.0); Mean Corpuscular HGB Conc 33 g/dL (31-36); Mean Corpuscular Hemoglobin 28 pg (27-31); Mean Corpuscular Volume 86 fL (80-97); Nucleated Red Blood Cells % 0.1; Platelet Count 143 10^3/uL (150-450); Red Blood Count 3.88 10^6 /uL (3.70-4.87); Red Cell Distribution Width 14 % (10-15)
[2019-11-08 06:00] LABS: INR 3.24 (0.82-1.09)
[2019-11-08 06:13] LABS: BUN/Creatinine Ratio 31.4 (8-20); Calcium 10.3 mg/dL (8.6-10.3); EGFR African American 64.3 (>60); EGFR Non-African American 53.1 (>60); Potassium 4.6 mmol/L (3.5-5.0)
[2019-11-08] MEDS: Tiotropium Brom/Olodaterol MDI INH SCH (08:06)
[2019-11-08] MEDS: Metoprolol Tartrate TAB* 25 MG PO SCH ×2 (09:37→20:59)
[2019-11-08] MEDS: Montelukast Sodium TAB* 10 MG PO SCH (09:37)
[2019-11-08] MEDS: Gabapentin CAP(*) 100 MG PO SCH ×2 (09:37→20:57)
[2019-11-08] MEDS: Lithium Carbonate TAB* 300 MG PO SCH ×2 (09:37→20:57)
[2019-11-08] MEDS: Nicotine PATCH 14 MG/24 HR* PATCH TRANSDERM SCH (09:38)
[2019-11-08] MEDS: Fluticasone NASAL SPRAY 50MCG* 16 gm SPRAY BTL BOTH NARES SCH (09:38)
[2019-11-08] MEDS: DOXYcycline CAP(*) 100 MG PO SCH ×2 (09:38→20:57)
[2019-11-08] MEDS: Atorvastatin* 10 MG TAB PO SCH (09:38)
[2019-11-08] MEDS: amLODIPine TAB* 5 MG PO SCH (09:38)
[2019-11-08] MEDS: Pantoprazole TAB * 40 MG TAB PO SCH (09:38)
[2019-11-08] MEDS: guaiFENesin ER TAB 600 MG PO SCH ×2 (09:38→20:57)
[2019-11-08] MEDS: Isosorbide Mononitrate ER TAB* 30 MG PO SCH (09:38)
--- NOTE | 2019-11-08 10:24 | PN ---
Subjective Date of Service: 11/08/19 Interval History: Patient seen and examined at bedside. Breathing feels much better today, hopeful to go home today or tomorrow. Denies fever/chills, CP. Has SOB with exertion Has oxygen at home. States she has aides who come and help her. Family History: Unchanged from Admission Social History: Unchanged from Admission Past Medical History: Unchanged from Admission Objective Active Medications: Albuterol/Ipratropium (Duoneb (Albuterol 2.5 Mg/Ipratropium 0.5 Mg)) 1 neb INH Q4H PRN PRN Reason: SHORTNESS OF BREATH Last Admin: 11/07/19 04:11 Dose: 1 neb Alprazolam (Xanax Tab*) 0.25 mg PO Q8H PRN PRN Reason: ANXIETY Last Admin: 11/07/19 22:38 Dose: 0.25 mg Amlodipine Besylate (Norvasc Tab*) 10 mg PO DAILY [facility] Last Admin: 11/08/19 09:38 Dose: 10 mg Atorvastatin Calcium (Lipitor*) 10 mg PO DAILY [facility] Last Admin: 11/08/19 09:38 Dose: 10 mg Doxycycline Hyclate (Vibramycin Cap(*)) 100 mg PO BID [facility] Last Admin: 11/08/19 09:38 Dose: 100 mg Ferrous Gluconate (Fergon Tab*) 324 mg PO 1100 [facility] Last Admin: 11/07/19 10:44 Dose: 324 mg Fluticasone Propionate (Flonase Nasal [place] 50mcg*) 2 spray BOTH NARES DAILY [facility] Last Admin: 11/08/19 09:38 Dose: 2 spray Gabapentin (Neurontin Cap(*)) 200 mg PO BID [facility] Last Admin: 11/08/19 09:37 Dose: 200 mg Guaifenesin (Mucinex*) 600 mg PO BID [facility] Last Admin: 11/08/19 09:38 Dose: 600 mg Isosorbide Mononitrate (Imdur Er Tab*) 30 mg PO DAILY [facility] Last Admin: 11/08/19 09:38 Dose: 30 mg [place] Carbonate ([place] Carbonate Tab*) 300 mg PO BID [facility] Last Admin: 11/08/19 09:37 Dose: 300 mg Methylprednisolone Sodium Succinate (Solu-Medrol 40 Mg) 40 mg IV Q6H [facility] Last Admin: 11/08/19 09:36 Dose: 40 mg Metoprolol Tartrate (Lopressor Tab*) 25 mg PO BID [facility] Last Admin: 11/08/19 09:37 Dose: 25 mg Mirtazapine (Remeron Tab*) 15 mg PO BEDTIME [facility] Last Admin: 11/07/19 19:54 Dose: 15 mg Montelukast Sodium (Singulair Tab*) 10 mg PO DAILY [facility] Last Admin: 11/08/19 09:37 Dose: 10 mg Nicotine (Nicotine Patch 14 Mg/24 Hr*) 1 patch TRANSDERM DAILY [facility] Last Admin: 11/08/19 09:38 Dose: 1 patch Nicotine Polacrilex (Nicotine Lozenge Mini) 2 mg MT Q2H PRN PRN Reason: CRAVING Olanzapine (Zyprexa Tab*) 10 mg PO BEDTIME [facility] Last Admin: 11/07/19 19:53 Dose: 10 mg Pantoprazole Sodium (Protonix Tab*) 40 mg PO DAILY [facility]; Protocol Last Admin: 11/08/19 09:38 Dose: 40 mg Pharmacy Profile Note (Nicotine Patch Removal Note*) 1 note FOLLOW UP 0600 [facility] Last Admin: 11/08/19 05:50 Dose: 1 note Sodium Chloride (Sodium Chloride 0.65% Nasal [place]*) 1 spray BOTH NARES TID PRN PRN Reason: CONGESTION Tiotropium [place]/Olodaterol (Stiolto Respimat Inh [place] (60 Puff)) 2 puff INH DAILY [facility] Last Admin: 11/08/19 08:06 Dose: 2 puff Warfarin Sodium (Coumadin Tab(*)) 2.5 mg PO 1700 [facility]; Protocol Last Admin: 11/07/19 16:57 Dose: 2.5 mg Warfarin Sodium (Coumadin Tab(*)) 2 mg PO 1700 [facility] Last Admin: 11/07/19 16:56 Dose: 2 mg Vital Signs - 8 hr 11/08/19 11/08/19 02:43 09:37 Temperature 97.1 F Pulse Rate 70 Respiratory 18 19 Rate Blood Pressure 146/63 (mmHg) O2 Sat by Pulse 95 Oximetry Oxygen Devices in Use Now: Nasal Cannula Appearance: 64 yo female, OOB to chair, alert, NAD Eyes: No Scleral Icterus, PERRLA Ears/Nose/Mouth/Throat: Clear Oropharnyx, Mucous Membranes Moist Neck: NL Appearance and Movements; NL JVP Respiratory: Symmetrical Chest Expansion and Respiratory Effort, - - scattered expiratory wheezing Cardiovascular: NL Sounds; No Murmurs; No JVD, RRR Abdominal: NL Sounds; No Tenderness; No Distention Extremities: No Edema Neurological: Alert and Oriented x 3, NL Muscle Strength and Tone Lines/Tubes/Other Access: Clean, Dry and Intact Peripheral IV Nutrition: Taking PO's Result Diagrams: 11/08/19 05:29 11/08/19 05:29 Microbiology and Other Data: Microbiology 11/06/19 11:17 Aerobic Blood Culture - Preliminary Blood Venous No Growth Day 1 Anaerobic Blood Culture - Preliminary No Growth Day 1 11/06/19 10:17 Aerobic Blood Culture - Preliminary Blood Venous No Growth Day 1 Anaerobic Blood Culture - Preliminary No Growth Day 1 Assess/Plan/Problems-Billing Assessment: Ms. Camejo is a 64 yo female with a PMH significant for COPD, chronic resp failure, DVT with chronic anticoagulation, PAD, CAD, and schizoaffective do who presented to the ER on 11/06 with concern for SOB likely 10/12 to COPD exacerbation. - Patient Problems (1) COPD exacerbation Code(s): J44.1 - CHRONIC OBSTRUCTIVE PULMONARY DISEASE W (ACUTE) EXACERBATION Comment: Presented with acute SOB and hypoxic resp failure Continue supplemental O2 Improving, change solu-medrol to prednisone Continue doxycycline, guaifenesin, prn albuterol, Anoro Ellipta (2) Acute and chronic respiratory failure with hypoxia Code(s): J96.21 - ACUTE AND CHRONIC RESPIRATORY FAILURE WITH HYPOXIA Comment: With sats in 80s, now on 2Lnc with O2 sats in low 90s Patient is supposed to be on O2 chronically (3) Hx of deep venous thrombosis Code(s): Z86.718 - PERSONAL HISTORY OF OTHER VENOUS THROMBOSIS AND EMBOLISM Comment: INR 3.24 Continue warfarin; decrease from 4.5 mg to 2 mg Monitor closely while on doxycycline (at risk for supratherapeutic INR) (4) HTN (hypertension) Code(s): I10 - ESSENTIAL (PRIMARY) HYPERTENSION Comment: With acceptable control (SBP 120s-140s) Continue home isosorbide, metoprolol, amlodipine (5) HLD (hyperlipidemia) Code(s): E78.5 - HYPERLIPIDEMIA, UNSPECIFIED Comment: Continue atorvastatin (6) GERD (gastroesophageal reflux disease) Code(s): K21.9 - GASTRO-ESOPHAGEAL REFLUX DISEASE WITHOUT ESOPHAGITIS Comment : Continue pantoprazole (7) CAD (coronary artery disease) Code(s): I25.10 - ATHSCL HEART DISEASE OF [place] CORONARY ARTERY W/O ANG PCTRS Comment: Continue Imdur, metoprolol, atorvastatin (8) Schizoaffective disorder, bipolar type Code(s): F25.0 - SCHIZOAFFECTIVE DISORDER, BIPOLAR TYPE Comment: Continue olanzapine, mirtazapine, lithium, gabapentin Also on alprazolam prn (9) DVT prophylaxis Comment: Warfarin (10) Full code status Code(s): Z78.9 - OTHER SPECIFIED HEALTH STATUS Comment: Status and Disposition: Inpatient admission. D/c to home when medically stable. Attempted to d/c home today but patient did not have home supports in place and unable to get to pharmacy. Plan for d/c tomorrow morning. Attending: Christiano Sanchez
[2019-11-08] MEDS: Ferrous Gluconate TAB* 324 MG TAB PO SCH (12:13)
[2019-11-08] MEDS: Nicotine Lozenge* mini 2 MG LOZNG.MINI MT PRN (17:37)
[2019-11-08] MEDS: Warfarin TAB(*) 2 MG PO SCH (17:37)
[2019-11-08] MEDS: OLANzapine TAB* 5 MG PO SCH (20:56)
[2019-11-08] MEDS: Mirtazapine TAB* 15 MG PO SCH (20:59)
[2019-11-08] MEDS: ALPRAZolam TAB* 0.25 MG PO PRN (23:10)
[2019-11-09] MEDS: Nicotine Lozenge* mini 2 MG LOZNG.MINI MT PRN (00:57)
[2019-11-09 06:10] LABS: INR 2.48 (0.82-1.09)
[2019-11-09 06:29] LABS: BUN/Creatinine Ratio 38.2 (8-20); Calcium 10.4 mg/dL (8.6-10.3); EGFR African American 66.4 (>60); EGFR Non-African American 54.9 (>60); Potassium 4.9 mmol/L (3.5-5.0)
[2019-11-09] MEDS: Tiotropium Brom/Olodaterol MDI INH SCH (07:09)
[2019-11-09] MEDS: Metoprolol Tartrate TAB* 25 MG PO SCH (09:30)
[2019-11-09] MEDS: Isosorbide Mononitrate ER TAB* 30 MG PO SCH (09:30)
[2019-11-09] MEDS: amLODIPine TAB* 5 MG PO SCH (09:31)
[2019-11-09] MEDS: DOXYcycline CAP(*) 100 MG PO SCH (09:31)
[2019-11-09] MEDS: Lithium Carbonate TAB* 300 MG PO SCH (09:31)
[2019-11-09] MEDS: Montelukast Sodium TAB* 10 MG PO SCH (09:31)
[2019-11-09] MEDS: Atorvastatin* 10 MG TAB PO SCH (09:31)
[2019-11-09] MEDS: Pantoprazole TAB * 40 MG TAB PO SCH (09:31)
[2019-11-09] MEDS: guaiFENesin ER TAB 600 MG PO SCH (09:32)
[2019-11-09] MEDS: Nicotine PATCH 14 MG/24 HR* PATCH TRANSDERM SCH (09:32)
[2019-11-09] MEDS: Gabapentin CAP(*) 100 MG PO SCH (09:32)
[2019-11-09] MEDS: Fluticasone NASAL SPRAY 50MCG* 16 gm SPRAY BTL BOTH NARES SCH (09:32)
--- NOTE | 2019-11-09 09:38 | DS ---
CC: Dr. Schrader * DISCHARGE SUMMARY: DATE OF ADMISSION: 11/06/19 DATE OF DISCHARGE: 11/09/19 PRIMARY CARE PROVIDER: Dr. Schrader PRINCIPAL DIAGNOSES: 1. Chronic obstructive pulmonary disease exacerbation. 2. Acute on chronic hypoxic respiratory failure. SECONDARY DIAGNOSES: 1. History of deep venous thrombosis. 2. Peripheral arterial disease. 3. Coronary artery. 4. Schizoaffective disorder. DISCHARGE MEDICATIONS: 1. Coumadin 3 mg p.o. daily to be taken until she has her INR checked, at which time she will follow instructions from her PCP's office. 2. Anoro Ellipta 62.5/25 one puff inhaled daily. 3. Albuterol 2 puffs inhaled q.4 hours p.r.n. shortness of breath. 4. Maalox 15 mL p.o. daily. 5. Singulair 10 mg p.o. daily. 6. Flonase 2 squirts both nostrils daily. 7. Gabapentin 200 mg p.o. twice daily. 8. Lipitor 10 mg p.o. daily. 9. Imdur 30 mg p.o. daily. 10. Antacid antigas liquid 5 mL p.o. daily. 11. DuoNeb 1 neb inhaled q.4 hours p.r.n. shortness of breath. 12. Triamcinolone acetonide applied topically twice daily. 13. Remeron 15 mg p.o. q.h.s. 14. Jensen carbonate 300 mg p.o. b.i.d. 15. Amlodipine 10 mg p.o. daily. 16. Olanzapine 10 mg p.o. q.h.s. 17. Saline nasal spray 1 squirt both nostrils 3 times daily as needed for dryness. 18. Eye lubricant 2 drops to the right eye 4 times daily as needed for dryness. 19. Gabapentin 300 to 600 mg p.o. q.h.s. 20. Ferrous gluconate 324 mg p.o. daily. 21. Nexium 40 mg p.o. daily. 22. Metoprolol tartrate 25 mg p.o. b.i.d. 23. Prednisone 60 mg x2 days, then 50 mg x2 days, 40 mg x2 days, 30 mg x2 days , 20 mg x2 days, 10 mg x2 days, then 5 mg x2 days. 24. Guaianesin ER 600 mg p.o. b.i.d. 25. Nicotine patch 14 mg per 24 hours 1 patch topically daily. 26. Nicotine lozenges 4 mg p.o. q.2 hours p.r.n. craving. 27. Doxycycline 100 mg p.o. b.i.d. x5 days. HOSPITAL COURSE: Ms. Camejo is a 64-year-old female who has a history of COPD and chronic hypoxic respiratory failure, who is supposed to use oxygen continuously but does not and has ongoing tobacco abuse, who presented to the emergency room on 11/06/19 with complaints of acute shortness of breath. The patient reported feeling sick for about 1 week with coughing, congestion, and shortness of breath. She has stopped smoking 2 to 3 days prior to admission given her severe shortness of breath. She felt fatigued due to her rapid breathing. The patient was admitted for COPD exacerbation with acute on chronic hypoxic respiratory failure. The patient over the course of the next 2 days has improved back to her baseline. She states that her breathing is back to normal. She has been up and ambulating as of yesterday afternoon without any difficulty. She will continue on a prednisone taper and doxycycline as listed above. While in the hospital, she received IV steroids, ultimately converted over to oral on the day prior to discharge and doxycycline. The patient has been strongly encouraged to quit smoking. We discussed the fact that she has already been several days without smoking and I asked her what she thinks she can use to continue this course and she asks for prescription to be sent for nicotine patch and lozenges. I have done this for her. Further outpatient counseling would be indicated to encourage the smoking cessation. The patient does have a history of DVT. She has been on Coumadin 4.5 mg daily. Her INR was therapeutic on admission, but did climb to 3.24 on 11/08/19. This is likely related to the fact she has been receiving doxycycline. On admission , her Coumadin dose was decreased to 2 mg. As her INR is down to 2.48 on the day of discharge with this reduced dose, I am going to increase her back to 3 mg daily. I have asked her to call and make an appointment for this coming Sunday for an INR check. She states that she is unable to do this. She already has an appointment scheduled for Sunday. She understands that she is to take 3 mg of Coumadin daily until her INR is checked and then she will follow the instructions of her PCP's office. There have been no other changes to her medication list. On the day of discharge, the patient is awake, alert, and oriented, sitting up in bed, in no acute distress. Cardiac exam reveals normal S1, S2 with a regular rate and rhythm. Lungs have diminished breath sounds throughout, but are clear. Abdomen is soft, nontender, nondistended. She moves all 4 extremities symmetrically. There are no rashes. FOLLOWUP CONCERNS: The patient is being discharged home today, 11/09/19. ACTIVITY LEVEL: As tolerated. DIET: Heart healthy. CONDITION ON DISCHARGE: Stable and improved. The patient is to follow up with Dr. Schrader in the next 4 to 7 days. Again, she is to have an INR check this coming Sunday if possible; if not, she will keep her Sunday appointment. TIME SPENT: Thirty five minutes was spent on this discharge. [id number]/[facility] #: [id number] ANNITA
[2019-11-09 11:44] VITALS: BP 123/47
[2019-11-09] MEDS: Ferrous Gluconate TAB* 324 MG TAB PO SCH (11:57)
== END 2019-11-09 12:15 | disposition home or self-care (01) | DRG 190 ==
LOC: ED 09:21 → MED 13:25
PROVIDERS: ADMIT Internal Medicine; ATTEND Hospitalist
DX: J44.1 Chronic obstructive pulmonary disease with (acute) exacerbation (principal); J96.21 Acute and chronic respiratory failure with hypoxia; I73.9 Peripheral vascular disease, unspecified; I25.10 Atherosclerotic heart disease of native coronary artery without angina pectoris; I10 Essential (primary) hypertension; E78.5 Hyperlipidemia, unspecified; K21.9 Gastro-esophageal reflux disease without esophagitis; F25.0 Schizoaffective disorder, bipolar type; E78.00 Pure hypercholesterolemia, unspecified; K58.9 Irritable bowel syndrome, unspecified; F41.9 Anxiety disorder, unspecified; F32.9 Major depressive disorder, single episode, unspecified; F17.210 Nicotine dependence, cigarettes, uncomplicated; Z99.81 Dependence on supplemental oxygen; Z86.718 Personal history of other venous thrombosis and embolism; Z28.21 Immunization not carried out because of patient refusal; Z79.01 Long term (current) use of anticoagulants; Z88.1 Allergy status to other antibiotic agents; Z88.8 Allergy status to other drugs, medicaments and biological substances; Z88.0 Allergy status to penicillin; Z79.899 Other long term (current) drug therapy
CPT/HCPCS: 36415; 71046; 80048; 80053; 80076; 80178; 82803; 83605; 83735; 83880; 84100; 84443; 84484; 85025; 85610; 86140; 87040; 93005; 94640; 96365; 99284; A9270-GY; J2920; J2930; J3475; J7512

== ENCOUNTER 2019-11-17 08:02 | Emergency (ER) | payer MEDICARE, MEDICAID ==
--- NOTE | 2019-11-17 08:12 | ED ---
HPI Chest Pain - HPI Summary HPI Summary: 64 year old F presenting to [facility] via EMS with a chief complaint of sharp central chest pain since she woke up. The patient rated the pain 9/10 in severity initially but after 1 nitro and 4 baby aspirin her pain severity decreased to 1/10. Symptoms aggravated by nothing. Symptoms alleviated by nitro and aspirin. Patient denies any shortness of breath, diarrhea, constipation, or nausea. Patient reports that she was recently admitted to the hospital for COPD. The patient is not followed by a rn camp. She is a daily smoker. Medication list reviewed. Allergy list reviewed. Home Medications Medication Instructions Recorded Confirmed Type Esomeprazole(NF) [Nexium(NF)] 40 mg PO DAILY #30 cap 07/04/17 11/06/19 Rx Onarga Carbonate TAB* 300 mg PO BID #30 tab 07/04/17 11/06/19 Rx Isosorbide Mononitrate ER TAB* 30 mg PO DAILY 08/17/18 11/06/19 History [Imdur ER TAB*] OLANzapine TAB* [Zyprexa 10 MG 10 mg PO BEDTIME 08/17/18 11/06/19 History TAB*] amLODIPine TAB* [Norvasc 5 mg TAB*] 10 mg PO DAILY 08/17/18 11/06/19 History Montelukast Sodium TAB* [Singulair 10 mg PO DAILY 12/23/18 11/06/19 History 10 MG TAB*] Atorvastatin* [Lipitor 10 MG*] 10 mg PO DAILY 06/05/19 11/06/19 History Gabapentin CAP(*) [Neurontin 300 300 - 600 mg PO BEDTIME 06/05/19 11/06/19 History CAP(*)] Albuterol/Ipratropium NEB.GINETTE* 1 neb INH Q4H PRN 07/14/19 11/06/19 History [Duoneb (Albuterol 2.5 MG/Ipratropium 0.5 MG)] Ferrous Gluconate TAB* [Fergon 324 mg PO DAILY 07/14/19 11/06/19 History TAB*] Gabapentin CAP(*) [Neurontin 100 200 mg PO BID 07/14/19 11/06/19 History mg CAP(*)] Mag Hydrox/Aluminum Hyd/Simeth 15 ml PO DAILY 07/14/19 11/06/19 History [Maalox Maximum Strength Susp] Metoprolol Tartrate TAB* 25 mg PO BID 07/14/19 11/06/19 History [Lopressor TAB*] Mirtazapine TAB* [Remeron TAB*] 15 mg PO BEDTIME 07/14/19 11/06/19 History Propylene Glycol/Peg 400/Pf 2 drop RIGHT EYE QID PRN 07/14/19 11/06/19 History [Lubricant Eye 0.4%-0.3% Drop] Saline NASAL SPRAY 0.65%* [Sodium 1 spray BOTH NARES TID PRN 07/14/19 11/06/19 History Chloride 0.65% Nasal [place]*] Albuterol HFA INHALER* [Ventolin 2 puff INH Q4H PRN 11/06/19 11/06/19 History HFA Inhaler*] Fluticasone NASAL SPRAY 50MCG* 2 spray BOTH NARES DAILY 11/06/19 11/06/19 History [Flonase NASAL SPRAY 50MCG*] Mag Hydrox/Aluminum Hyd/Simeth 5 ml PO DAILY 11/06/19 11/06/19 History [Antacid Anti-Gas Liquid] Triamcinolone Acetonide [Triderm] 0.5 % TOPICAL BID 11/06/19 11/06/19 History DOXYcycline CAP(*) [DOXYcycline 100 mg PO BID #10 cap 11/08/19 Rx 100MG CAP(*)] Umeclidin/Vilant 62.5 MDI(NF) 1 inh INH DAILY 11/08/19 11/08/19 History [ANORO 62.5/25 Ellipta DEVICE (NF)] guaiFENesin ER TAB [Mucinex*] 600 mg PO BID #28 tab.er 11/08/19 Rx predniSONE 10 mg TAB [Deltasone 10 10 mg PO DAILY #43 tab 11/08/19 Rx MG TAB*] Nicotine Lozenge* (NF) [Nicotine 4 mg PO Q2H PRN #20 lozenge 11/09/19 Rx Lozenge*] Nicotine PATCH 14 MG/24 HR* 1 patch TRANSDERM DAILY #14 patch 11/09/19 Rx Warfarin TAB(*) [Coumadin TAB(*)] 3 mg PO 1700 #30 tab 11/09/19 Rx - History of Current Complaint Hx Obtained From: Patient, EMS Onset/Duration: Started Hours Ago, Still Present Initial Severity: Severe - 05/20 Current Severity: Mild Pain Intensity: 1 Pain Scale Used: 0-10 Numeric Chest Pain Location: Discrete at: - Center Character: Sharp/Stabbing Aggravating Factor(s): Nothing Alleviating Factor(s): Medication - Baby aspirin; nitro Associated Signs and Symptoms: Positive: Negative - Diarrhea; constipation. Negative: Shortness of Breath, Nausea - Additional Pertinent History Primary Care Physician: MANDY - Allergy/Home Medications Allergies/Adverse Reactions: Allergies Allergy/AdvReac Type Severity Reaction Status Date / Time bupropion [From Wellbutrin] Allergy Agitation Verified 11/17/19 08:39 Cephalosporins Allergy Agitation Verified 11/17/19 08:39 chlorproethazine Allergy Agitation Verified 11/17/19 08:39 erythromycin base Allergy Diarrhea Verified 11/17/19 08:39 Penicillins Allergy Hives Verified 11/17/19 08:39 tobramycin Allergy Diarrhea Verified 11/17/19 08:39 doxycycline AdvReac Severe See Comment Verified 11/17/19 08:39 Home Medications: Home Medications Esomeprazole(NF) [Nexium(NF)] 40 mg PO DAILY #30 cap 07/04/17 [Rx Confirmed 05/30] Onarga Carbonate TAB* 300 mg PO BID #30 tab 07/04/17 [Rx Confirmed 11/17/19] Isosorbide Mononitrate ER TAB* [Imdur ER TAB*] 30 mg PO DAILY 08/17/18 [History Confirmed 11/17/19] OLANzapine TAB* [Zyprexa 10 MG TAB*] 10 mg PO BEDTIME 08/17/18 [History Confirmed 11/17/19] amLODIPine TAB* [Norvasc 5 mg TAB*] 10 mg PO DAILY 08/17/18 [History Confirmed 11/17/19] Montelukast Sodium TAB* [Singulair 10 MG TAB*] 10 mg PO DAILY 12/23/18 [History Confirmed 11/17/19] Atorvastatin* [Lipitor 10 MG*] 10 mg PO DAILY 06/05/19 [History Confirmed ] Gabapentin CAP(*) [Neurontin 300 CAP(*)] 300 - 600 mg PO BEDTIME 06/05/19 [ History Confirmed 11/17/19] Albuterol/Ipratropium NEB.GINETTE* [Duoneb (Albuterol 2.5 MG/Ipratropium 0.5 MG)] 1 neb INH Q4H PRN 07/14/19 [History Confirmed 11/17/19] Ferrous Gluconate TAB* [Fergon TAB*] 324 mg PO DAILY 07/14/19 [History Confirmed 11/17/19] Gabapentin CAP(*) [Neurontin 100 mg CAP(*)] 200 mg PO BID 07/14/19 [History Confirmed 11/17/19] Mag Hydrox/Aluminum Hyd/Simeth [Maalox Maximum Strength Susp] 15 ml PO DAILY 12/27 [History Confirmed 11/17/19] Metoprolol Tartrate TAB* [Lopressor TAB*] 25 mg PO BID 07/14/19 [History Confirmed 11/17/19] Mirtazapine TAB* [Remeron TAB*] 15 mg PO BEDTIME 07/14/19 [History Confirmed 05/30] Propylene Glycol/Peg 400/Pf [Lubricant Eye 0.4%-0.3% Drop] 2 drop RIGHT EYE QID PRN 07/14/19 [History Confirmed 11/17/19] Saline NASAL SPRAY 0.65%* [Sodium Chloride 0.65% Nasal [place]*] 1 spray BOTH NARES TID PRN 07/14/19 [History Confirmed 11/17/19] Albuterol HFA INHALER* [Ventolin HFA Inhaler*] 2 puff INH Q4H PRN 11/06/19 [ History Confirmed 11/17/19] Fluticasone NASAL SPRAY 50MCG* [Flonase NASAL SPRAY 50MCG*] 2 spray BOTH NARES DAILY 11/06/19 [History Confirmed 11/17/19] Mag Hydrox/Aluminum Hyd/Simeth [Antacid Anti-Gas Liquid] 5 ml PO DAILY 11/06/19 [History Confirmed 11/17/19] Triamcinolone Acetonide [Triderm] 0.5 % TOPICAL BID 11/06/19 [History Confirmed 11/17/19] Umeclidin/Vilant 62.5 MDI(NF) [ANORO 62.5/25 Ellipta DEVICE (NF)] 1 inh INH DAILY 11/08/19 [History Confirmed 11/17/19] ALPRAZolam TAB* [Xanax TAB*] 0.25 mg PO Q8H PRN 11/17/19 [History Confirmed 05/30] Fluticasone/Vilanterol [Breo Ellipta 200-25 Mcg INH] 1 puff INH DAILY 11/17/19 [ History Confirmed 11/17/19] Hydrocodone/Acetaminophen [Hydrocodone/Acetaminophen 5-325 mg] 1 tab PO Q6H PRN 11/17/19 [History Confirmed 11/17/19] Morphine ORAL.CONC BULK BOT* [Roxanol ORAL.CONC Bottle*] 0.5 mg PO Q3H PRN 11/16 [History Confirmed 11/17/19] Prednisolone Sod Phosphate [Prednisolone Sodium Phosp] 10 mg PO DAILY 11/17/19 [ History Confirmed 11/17/19] Umeclidinium 62.5 MDI(NF) [Incruse ELLIPTA MDI (NF)] 62.5 mcg INH DAILY [History Confirmed 11/17/19] Warfarin TAB(*) [Coumadin TAB(*)] 4.5 mg PO DAILY 11/17/19 [History Confirmed ] PMH/Surg Hx/FS Hx/Imm Hx Endocrine/Hematology History: Reports: Hx Anticoagulant Therapy, Hx Anemia, Other Endocrine/Hematological Disorders - L leg DVT Denies: Hx Diabetes, Hx Systemic Lupus Erythematosus, Hx Thyroid Disease Cardiovascular History: Reports: Hx Angina, Hx Coronary Artery Disease, Hx Deep Vein Thrombosis, Hx Hypercholesterolemia, Hx Hypertension, Hx Peripheral Vascular Disease, Other Cardiovascular Problems/Disorders - PERIPHERAL ARTERY DISEASE; CAD; DVT Denies: Hx Auto Implanted Cardiovert Defib, Hx Congestive Heart Failure, Hx Pacemaker/ICD Respiratory History: Reports: Hx Asthma, Hx Chronic Bronchitis, Hx Chronic Obstructive Pulmonary Disease (COPD) - 2L at home, Hx Pneumonia, Hx Seasonal Allergies, Other Respiratory Problems/Disorders - PNA Denies: Hx Cystic Fibrosis, Hx Lung Cancer, Hx Pleural Effusion, Hx Pulmonary Edema, Hx Pulmonary Embolism, Hx Sleep Apnea GI History: Reports: Hx Gall Bladder Disease - removed, Hx Gastroesophageal Reflux Disease, Hx Irritable Bowel, Other GI Disorders - hernia repair X 2 Denies: Hx Cirrhosis, Hx Crohn's Disease, Hx Diverticulosis History: Denies: Hx Dialysis, Hx Renal Disease Musculoskeletal History: Denies: Hx Arthritis, Hx Rheumatoid Arthritis, Hx Osteoporosis Sensory History: Reports: Hx Contacts or Glasses Denies: Hx Glaucoma, Hx Deafness, Hx Hearing Aid, Hx Hearing Problem Opthamlomology History: Reports: Hx Contacts or Glasses Denies: Hx Glaucoma Neurological History: Denies: Hx Headaches, Hx Seizures, Hx Transient Ischemic Attacks (TIA) Psychiatric History: Reports: Hx Anxiety, Hx Depression, Hx Inpatient Treatment , Hx Community Mental Health Tx, Hx Schizophrenia, Hx Bipolar Disorder, Hx Suicide Attempt Denies: Hx Eating Disorder, Hx Panic Disorder, Hx of Violent Episodes Against Others - Cancer History Hx Chemotherapy: No - Surgical History Surgery Procedure, Year, and Place: bilat thumb repairs, hernia repairs X 2, cholecystectomy, appendectomy Hx Anesthesia Reactions: No - Immunization History Date of Tetanus Vaccine: UTD Date of Influenza Vaccine: 06/2018 Infectious Disease History: Denies: Hx Clostridium Difficile, Hx Hepatitis, Hx Human Immunodeficiency Virus (HIV), Hx of Known/Suspected MRSA, Hx Shingles, Hx Tuberculosis - Family History Known Family History: Positive: Cardiac Disease - NE, Other - schizophrenia, anxiety Negative: Hypertension, Diabetes Family History: Negative HTN/DM per EMR - Social History Alcohol Use: Occasionally Hx Substance Use: No Substance Use Type: Reports: None Hx Tobacco Use: Yes Smoking Status (MU): Current Every Day Smoker Type: Cigarettes Amount Used/How Often: 1 PPD Have You Smoked in the Last Year: Yes Review of Systems Positive: Chest Pain Negative: Shortness Of Breath Gastrointestinal: Negative - Constipation Negative: Diarrhea, Nausea All Other Systems Reviewed And Are Negative: Yes Physical Exam - Summary Physical Exam Summary: VITAL SIGNS: Reviewed. GENERAL: Patient is an elderly female without respiratory distress who is lying comfortable in the stretcher. Patient is not in any acute respiratory distress. HEAD AND FACE: No signs of trauma. No ecchymosis, hematomas or skull depressions. No sinus tenderness. EYES: PERRLA, EOMI x 2, No injected conjunctiva, no nystagmus. EARS: Hearing grossly intact. Ear canals and tympanic membranes are within normal limits. MOUTH: Oropharynx within normal limits. NECK: Supple, trachea is midline, no adenopathy, no JVD, no carotid bruit, no c- spine tenderness, neck with full ROM. CHEST: Symmetric, no tenderness at palpation. LUNGS: Course breath sounds bilaterally; oxygen via nasal cannula, approximately 2 liters CVS: Regular rate and rhythm, S1 and S2 present, no murmurs or gallops appreciated. ABDOMEN: Soft, non-tender. No signs of distention. No rebound, no guarding, and no masses palpated. Bowel sounds are normal. EXTREMITIES: FROM in all major joints, no edema, no cyanosis or clubbing. NEURO: Alert and oriented x 3. No acute neurological deficits. Speech is normal and follows commands. SKIN: Dry and warm. Triage Information Reviewed: Yes Vital Signs Reviewed: Yes Procedures - Sedation Patient Received Moderate/Deep Sedation with Procedure: No Diagnostics - Laboratory Result Diagrams: 11/17/19 08:17 11/17/19 08:17 Lab Statement: Any lab studies that have been ordered have been reviewed, and results considered in the medical decision making process. - Radiology Chest x-ray Radiology Interpretation Completed By: Radiologist Summary of Radiographic Findings: Stigmata of obstructive lung disease. No acute pulmonary or cardiac process evident. ED physician has reviewed this report. - EKG 08:13 Cardiac Rate: NL - 62 BPM EKG Rhythm: Sinus Rhythm Summary of EKG Findings: No ST elevations, similar to EKG done on 11/06/2019. ED physician has reviewed and interpreted this EKG. Chest Pain Course/Dx - Course Assessment/Plan: 64 year old F presenting to [facility] via EMS with a chief complaint of sharp central chest pain since she woke up. The patient rated the pain 9/10 in severity initially but after 1 nitro and 4 baby aspirin her pain severity decreased to 1/10. Symptoms aggravated by nothing. Symptoms alleviated by nitro and aspirin. Patient denies any shortness of breath, diarrhea, constipation, or nausea. Patient reports that she was recently admitted to the hospital for COPD. The patient is not followed by a rn camp. She is a daily smoker. Medication list reviewed. Allergy list reviewed. In the ED course the patient was placed on a cardiac technologist, IV access was obtained. EMS had given the patient aspirin and nitroglycerin. The patient reports that after the nitroglycerin the chest pain is only 1 out of 10. Past medical records reviewed. EKG is sinus rhythm without any ST elevations. EKG is similar to previous EKG in the ED. Chest x-ray impression: Stigmata of obstructive lung disease. No acute pulmonary or cardiac process. Blood test w/ o a significant abnormality except for WBCs of 18.1, platelet is 142, potassium is 5.3, carbon dioxide was 35, BUN is 31, creatinine is 1, glucose 114, lipase was 1.7, and urinalysis is negative for UTI. Second troponin is 0.00. Patient reports that all symptoms have resolved. Patient Heart score is: 3 therefore, low suspicion for CAD. Patient is not hypoxic or tachycardic. Wells criteria 0. Therefore, no suspicion for PE. Patient has no abdominal bruit thus no suspicion for AAA. Patients pain does not radiate to the back and pain has resolved thus low suspicion for aortic dissection. I discussed all the findings and test results with the patient. Patient was instructed to return to the emergency room immediately if any of the symptoms return or worsen. Patient understands and agrees. Plan of care was discussed with the patient and patient understands and agrees. All questions were answered at patient satisfaction. There were no further complaints or concerns. PE before discharge : CVS: S1 and S2 present. No murmurs appreciated. Abdominal exam before discharge: Soft, non-tender. No signs of distention. No rebound no guarding, and no masses palpated. Bowel sounds are normal. Patient is alert and oriented x 3. Patient is hemodynamically stable. - Chest Pain Differential Diagnosis/HQI/PQRI: Acute NE, ACS, Angina, CHF, Chest Wall, GI Disease, Pulmonary Edema - Diagnoses Provider Diagnoses: Atypical chest pain Discharge ED - Sign-Out/Discharge Documenting (check all that apply): Patient Departure - Discharge Plan Condition: Stable Disposition: HOME Patient Education Materials: Chest Pain (ED) Referrals: Tom Schrader MD [Primary Care Provider] - 3 Days Additional Instructions: Follow up with your primary care provider within 3 days for chest pain noted today. Return to the emergency department for any worsening or new symptoms. - Billing Disposition and Condition Condition: STABLE Disposition: Home - Attestation Statements Document Initiated by Scribe: Yes Documenting Scribe: Aura Vincent Provider For Whom [facility] is Documenting (Include Credential): Yovanny Roque MD Scribe Attestation: Aura Laboy scribed for Yovanny Roque MD on 11/18/19 at 1133. Scribe Documentation Reviewed: Yes Provider Attestation: The documentation as recorded by the Aura kiran accurately reflects the service I personally performed and the decisions made by , Yovanny Roque MD Status of Scribe Document: Viewed
[2019-11-17 08:33] LABS: ABS Basophils 0.1 10^3/ul (0-0.2); ABS Eosinophils 0.2 10^3/ul (0-0.6); ABS Lymphocytes 1.4 10^3/ul (1.0-4.8); ABS Monocytes 0.5 10^3/ul (0-0.8); Eosinophil % 1.1 %; Hematocrit 38 % (35-47); Hemoglobin 12.5 g/dL (12.0-16.0); Lymphocyte % 7.9 %; Mean Corpuscular HGB Conc 33 g/dL (31-36); Mean Corpuscular Hemoglobin 28 pg (27-31); Mean Corpuscular Volume 87 fL (80-97); Mean Platelet Volume 8.2 fL (7.4-10.4); Platelet Count 142 10^3/uL (150-450); Red Blood Count 4.42 10^6 /uL (3.70-4.87); Red Cell Distribution Width 16 % (10-15); White Blood Count 18.1 10^3/uL (3.5-10.8)
[2019-11-17 08:42] LABS: Activated Partial Thrombo Time 32.7 seconds (26.0-38.0); INR 1.9 (0.82-1.09)
[2019-11-17 08:51] LABS: Albumin 3.5 g/dL (3.2-5.2); Albumin/Globulin Ratio 1.8 (1-3); Calcium 9.3 mg/dL (8.6-10.3); EGFR Non-African American 56.2 (>60); Magnesium 1.7 mg/dL (1.9-2.7); Total Bilirubin 0.4 mg/dL (0.2-1.0); Total Protein 5.5 g/dL (6.4-8.9)
[2019-11-17 08:52] LABS: CKMB ng/mL 1.9 ng/mL (0.6-6.3); Potassium 5.3 mmol/L (3.5-5.0)
[2019-11-17] MEDS ORDERED: Albuterol/Ipratropium NEB.SOL* Albuterol 2.5 MG/Ipratropium 0.5 MG 3 ML INH ONE (08:54)
[2019-11-17] MEDS ORDERED: methylPREDNISolone 125 MG* 2 ML VIAL IV ONE (08:54)
--- OUTSIDE RECORDS SUMMARY | 2019-11-17 08:54 | XMS REPORT ---
:1955 Author Organization [facility] Care Team Providers Name Role Phone Unavailable Unavailable Unavailable Problems Condition Condition Condition Status Onset Resolution Last Treating Comments Name Details Category Date Date Treatment Clinician Date Chronic Chronic Diagnosis Active Swetha obstructive obstructive 3- Wendela pulmonary pulmonary [id number] disease, disease, unspecified unspecified Allergies, Adverse Reactions, Alerts Allergy Name Allergy Status Severity Reaction(s) Onset Inactive Treating Comments Type Date Date Clinician bupropion Base Active Unknown agitation Emily White Ingredient 06-07 Cephalospori Allergen Active Unknown agitation Emily White ns Group 06-07 chlorproetha Base Active Unknown agitation Emily White zine Ingredient 06-07 erythromycin Base Active Unknown diarrhea Emily White base Ingredient 06-07 Penicillins Allergen Active Unknown Hives Emily White Group 9 tobramycin Base Active Unknown diarrhea Emily White Ingredient 06-07 Medications Ordered Filled Start Stop Current Ordering Indication Dosage Frequency Signature Comments Components Medication Medication Date Date Medication? Clinician (SIG) Name Name No Known No Known No None None None Medications Medications For This For This Patient Patient Procedures This patient has no known procedures. Results This patient has no known results.
--- OUTSIDE RECORDS SUMMARY | 2019-11-17 08:54 | XMS REPORT ---
:1955 Author Organization [facility] Care Team Providers Name Role Phone Unavailable Unavailable Unavailable Problems Condition Condition Condition Status Onset Resolution Last Treating Comments Name Details Category Date Date Treatment Clinician Date Chronic Chronic Diagnosis Active Swetha obstructive obstructive 3- Wendela pulmonary pulmonary [id number] disease, disease, unspecified unspecified Allergies, Adverse Reactions, [...]
[2019-11-17 09:23] LABS: TSH (Thyroid Stimulating Horm) 2.08 mcIU/mL (0.34-5.60)
[2019-11-17 09:47] LABS: Urine Appearance Clear; Urine Bilirubin Negative (Negative); Urine Blood Negative (Negative); Urine Color Yellow; Urine Glucose Negative (Negative); Urine Ketones Negative (Negative); Urine Nitrite Negative (Negative); Urine Protein Negative (Negative); Urine Specific Gravity 1.013 (1.010-1.030); Urine Urobilinogen Negative (Negative)
[2019-11-17 12:09] VITALS: BP 129/39
== END 2019-11-17 12:17 | disposition home or self-care (01) ==
LOC: ED 08:02
DX: R07.89 Other chest pain (principal); I25.119 Atherosclerotic heart disease of native coronary artery with unspecified angina pectoris; I10 Essential (primary) hypertension; E78.00 Pure hypercholesterolemia, unspecified; Z86.718 Personal history of other venous thrombosis and embolism; Z79.01 Long term (current) use of anticoagulants; J44.9 Chronic obstructive pulmonary disease, unspecified; Z99.81 Dependence on supplemental oxygen; K21.9 Gastro-esophageal reflux disease without esophagitis; F41.9 Anxiety disorder, unspecified; F31.9 Bipolar disorder, unspecified; F20.9 Schizophrenia, unspecified; Z79.899 Other long term (current) drug therapy; Z88.1 Allergy status to other antibiotic agents; Z88.0 Allergy status to penicillin; Z88.8 Allergy status to other drugs, medicaments and biological substances; F17.210 Nicotine dependence, cigarettes, uncomplicated
CPT/HCPCS: 36415; 71045; 80053; 81003; 82550; 82553; 83605; 83735; 83880; 84443; 84484; 85025; 85610; 85730; 93005; 96374; 99284; A9270-GY; J2930

== ENCOUNTER 2019-11-22 13:42 | Emergency (ER) | payer MEDICARE, MEDICAID ==
[2019-11-22] MEDS ORDERED: NS 0.9% 1000 ML** 1,000 ML IV ONE (14:06)
[2019-11-22] MEDS ORDERED: Ondansetron INJ* 2 MG/ML VIAL IV ONE (14:06)
[2019-11-22] MEDS ORDERED: Dicyclomine CAP* 10 MG PO ONE (14:06)
--- NOTE | 2019-11-22 14:11 | ED ---
Abdominal Pain/Female - HPI Summary HPI Summary: This patient is a 64 year old female presenting to [facility] with a chief complaint of RUQ pain x 1 month, n/v/d for the last 3 days. She denies SOB. She does not know if she has fever. She describes the diarrhea as watery. She states a Hx of COPD. Hx appendectomy, cholecystectomy and hernia repair x2. - History of Current Complaint Chief Complaint: EDAbdPain Stated Complaint: GENERAL ILLNESS PER EMS Time Seen by Provider: 11/22/19 13:48 Hx Obtained From: Patient Onset/Duration: Lasting Days Pain Intensity: 7 Pain Scale Used: 0-10 Numeric Location: Discrete At: RUQ Allergies/Adverse Reactions: Allergies Allergy/AdvReac Type Severity Reaction Status Date / Time bupropion [From Wellbutrin] Allergy Agitation Verified 11/22/19 13:49 Cephalosporins Allergy Agitation Verified 11/22/19 13:49 chlorproethazine Allergy Agitation Verified 11/22/19 13:49 erythromycin base Allergy Diarrhea Verified 11/22/19 13:49 Penicillins Allergy Hives Verified 11/22/19 13:49 tobramycin Allergy Diarrhea Verified 11/22/19 13:49 doxycycline AdvReac Severe See Comment Verified 11/22/19 13:49 Home Medications: Home Medications [place] Carbonate TAB* 300 mg PO BID #30 tab 07/04/17 [Rx Confirmed 11/22/19] Isosorbide Mononitrate ER TAB* [Imdur ER TAB*] 30 mg PO DAILY 08/17/18 [History Confirmed 11/22/19] OLANzapine TAB* [Zyprexa 10 MG TAB*] 10 mg PO BEDTIME 08/17/18 [History Confirmed 11/22/19] amLODIPine TAB* [Norvasc 5 mg TAB*] 10 mg PO DAILY 08/17/18 [History Confirmed 11/22/19] Montelukast Sodium TAB* [Singulair 10 MG TAB*] 10 mg PO DAILY 12/23/18 [History Confirmed 11/22/19] Atorvastatin* [Lipitor 10 MG*] 10 mg PO DAILY 06/05/19 [History Confirmed ] Gabapentin CAP(*) [Neurontin 300 CAP(*)] 300 - 600 mg PO BEDTIME 06/05/19 [ History Confirmed 11/22/19] Albuterol/Ipratropium NEB.GINETTE* [Duoneb (Albuterol 2.5 MG/Ipratropium 0.5 MG)] 1 neb INH Q4H PRN 07/14/19 [History Confirmed 11/22/19] Ferrous Gluconate TAB* [Fergon TAB*] 324 mg PO DAILY 07/14/19 [History Confirmed 11/22/19] Gabapentin CAP(*) [Neurontin 100 mg CAP(*)] 200 mg PO BID 07/14/19 [History Confirmed 11/22/19] Mag Hydrox/Aluminum Hyd/Simeth [Maalox Maximum Strength Susp] 15 ml PO DAILY 12/27 [History Confirmed 11/22/19] Metoprolol Tartrate TAB* [Lopressor TAB*] 25 mg PO BID 07/14/19 [History Confirmed 11/22/19] Mirtazapine TAB* [Remeron TAB*] 15 mg PO BEDTIME 07/14/19 [History Confirmed ] Propylene Glycol/Peg 400/Pf [Lubricant Eye 0.4%-0.3% Drop] 2 drop RIGHT EYE QID PRN 07/14/19 [History Confirmed 11/22/19] Saline NASAL SPRAY 0.65%* [Sodium Chloride 0.65% Nasal Ceres*] 1 spray BOTH NARES TID PRN 07/14/19 [History Confirmed 11/22/19] Albuterol HFA INHALER* [Ventolin HFA Inhaler*] 2 puff INH Q4H PRN 11/06/19 [ History Confirmed 11/22/19] Fluticasone NASAL SPRAY 50MCG* [Flonase NASAL SPRAY 50MCG*] 2 spray BOTH NARES DAILY 11/06/19 [History Confirmed 11/22/19] Mag Hydrox/Aluminum Hyd/Simeth [Antacid Anti-Gas Liquid] 5 ml PO DAILY 11/06/19 [History Confirmed 11/22/19] Triamcinolone Acetonide [Triderm] 0.5 % TOPICAL BID 11/06/19 [History Confirmed 11/22/19] Umeclidin/Vilant 62.5 MDI(NF) [ANORO 62.5/25 Ellipta DEVICE (NF)] 1 inh INH DAILY 11/08/19 [History Confirmed 11/22/19] ALPRAZolam TAB* [Xanax TAB*] 0.25 mg PO Q8H PRN 11/17/19 [History Confirmed ] Warfarin TAB(*) [Coumadin TAB(*)] 3 mg PO DAILY 11/17/19 [History Confirmed ] Dicyclomine CAP* [Bentyl CAP*] 10 mg PO TID PRN #20 cap 11/22/19 [Rx] Esomeprazole(NF) [Nexium(NF)] 40 mg PO DAILY 11/22/19 [History Confirmed ] Ondansetron ODT TAB* [Zofran 4 MG Odt TAB*] 4 mg PO Q8H PRN #12 tab.odt [Rx] guaiFENesin [Mucinex] 600 mg PO BID 11/22/19 [History Confirmed 11/22/19] PMH/Surg Hx/FS Hx/Imm Hx Endocrine/Hematology History: Reports: Hx Anticoagulant Therapy, Hx Anemia, Other Endocrine/Hematological Disorders - L leg DVT Denies: Hx Diabetes, Hx Systemic Lupus Erythematosus, Hx Thyroid Disease Cardiovascular History: Reports: Hx Angina, Hx Coronary Artery Disease, Hx Deep Vein Thrombosis, Hx Hypercholesterolemia, Hx Hypertension, Hx Peripheral Vascular Disease, Other Cardiovascular Problems/Disorders - PERIPHERAL ARTERY DISEASE; CAD; DVT Denies: Hx Auto Implanted Cardiovert Defib, Hx Congestive Heart Failure, Hx Pacemaker/ICD Respiratory History: Reports: Hx Asthma, Hx Chronic Bronchitis, Hx Chronic Obstructive Pulmonary Disease (COPD) - 2L at home, Hx Pneumonia, Hx Seasonal Allergies, Other Respiratory Problems/Disorders - PNA Denies: Hx Cystic Fibrosis, Hx Lung Cancer, Hx Pleural Effusion, Hx Pulmonary Edema, Hx Pulmonary Embolism, Hx Sleep Apnea GI History: Reports: Hx Gall Bladder Disease - removed, Hx Gastroesophageal Reflux Disease, Hx Irritable Bowel, Other GI Disorders - hernia repair X 2 Denies: Hx Cirrhosis, Hx Crohn's Disease, Hx Diverticulosis History: Denies: Hx Dialysis, Hx Renal Disease Musculoskeletal History: Denies: Hx Arthritis, Hx Rheumatoid Arthritis, Hx Osteoporosis Sensory History: Reports: Hx Contacts or Glasses Denies: Hx Glaucoma, Hx Deafness, Hx Hearing Aid, Hx Hearing Problem Opthamlomology History: Reports: Hx Contacts or Glasses Denies: Hx Glaucoma Neurological History: Denies: Hx Headaches, Hx Seizures, Hx Transient Ischemic Attacks (TIA) Psychiatric History: Reports: Hx Anxiety, Hx Depression, Hx Inpatient Treatment , Hx Community Mental Health Tx, Hx Schizophrenia, Hx Bipolar Disorder, Hx Suicide Attempt Denies: Hx Eating Disorder, Hx Panic Disorder, Hx of Violent Episodes Against Others - Cancer History Hx Chemotherapy: No - Surgical History Surgery Procedure, Year, and Place: bilat thumb repairs, hernia repairs X 2, cholecystectomy, appendectomy Hx Anesthesia Reactions: No - Immunization History Date of Tetanus Vaccine: UTD Date of Influenza Vaccine: 06/2018 Infectious Disease History: No Infectious Disease History: Denies: Hx Clostridium Difficile, Hx Hepatitis, Hx Human Immunodeficiency Virus (HIV), Hx of Known/Suspected MRSA, Hx Shingles, Hx Tuberculosis, Traveled Outside the [place] in Last 30 Days - Family History Known Family History: Positive: Cardiac Disease - CT, Other - schizophrenia, anxiety Negative: Hypertension, Diabetes Family History: Negative HTN/DM per EMR - Social History Alcohol Use: None Hx Substance Use: No Substance Use Type: Reports: None Hx Tobacco Use: Yes Smoking Status (MU): Light Every Day Tobacco Smoker Type: Cigarettes Amount Used/How Often: 1 PPD Have You Smoked in the Last Year: Yes Review of Systems Negative: Shortness Of Breath Positive: Abdominal Pain, Vomiting, Diarrhea, Nausea All Other Systems Reviewed And Are Negative: Yes Physical Exam - Summary Physical Exam Summary: Constitutional: Well-developed, Well-nourished, Alert. (-) Distressed Skin: Warm, Dry HENT: Normocephalic; Atraumatic Eyes: Conjunctiva normal Neck: Musculoskeletal ROM normal neck. (-) JVD, (-) Stridor, (-) Tracheal deviation Cardio: Rhythm regular, rate normal, Heart sounds normal; Intact distal pulses; The pedal pulses are 2+ and symmetric. Radial pulses are 2+ and symmetric. (-) Murmur Pulmonary/Chest wall: Effort normal. (-) Respiratory distress, (-) Wheezes, (-) Rales Abd: Soft, Mild RUQ tenderness, (-) Distension, (-) Guarding, (-) Rebound Musculoskeletal: (-) Edema Lymph: (-) Cervical adenopathy Neuro: Alert, Oriented x3 Psych: Mood and affect Normal Triage Information Reviewed: Yes Vital Signs On Initial Exam: Initial Vitals Temp Pulse Resp BP Pulse Ox 97.9 F 87 16 155/71 97 11/22/19 13:47 11/22/19 13:47 11/22/19 13:47 11/22/19 13:47 11/22/19 13:47 Vital Signs Reviewed: Yes Procedures - Sedation Patient Received Moderate/Deep Sedation with Procedure: No Diagnostics - Vital Signs Vital Signs Temp Pulse Resp BP Pulse Ox 11/22/19 13:47 97.9 F 87 16 155/71 97 - Laboratory Result Diagrams: 11/22/19 14:55 11/22/19 14:00 Lab Statement: Any lab studies that have been ordered have been reviewed, and results considered in the medical decision making process. Abdominal Pain Fem Course/Dx - Course Course Of Treatment: Patient is here with vomiting, diarrhea, and mild medical quadrant pain. Upon arrival, patient's overall well-appearing with very minimal tenderness on exam. Patient had blood performed to evaluate for an emergent cause which showed no abnormality. Patient negative UA. Patient was given Zofran and Bentyl with improvement in her symptoms. Patient tolerated by mouth prior to discharge. Patient has already had a cholecystectomy and appendectomy. - Diagnoses Provider Diagnoses: RUQ pain, Nausea, Vomiting Discharge ED - Sign-Out/Discharge Documenting (check all that apply): Patient Departure - Discharge - Discharge Plan Condition: Stable Disposition: HOME Prescriptions: Dicyclomine CAP* [Bentyl CAP*] 10 mg PO TID PRN #20 cap PRN Reason: abdominal cramping Ondansetron ODT TAB* [Zofran 4 MG Odt TAB*] 4 mg PO Q8H PRN #12 tab.odt PRN Reason: Vomiting Patient Education Materials: Acute Nausea and Vomiting (ED) Referrals: Tom Schrader MD [Primary Care Provider] - Additional Instructions: Rehydrate with Gatorade, Pedialite, or water. Come back with severe abdominal pain, inability to drink anything for 12 hours. - Billing Disposition and Condition Condition: STABLE Disposition: Home - Attestation Statements Document Initiated by Williamsibpricilla: Yes Documenting Scribe: Ney Sorensen Provider For Whom [facility] is Documenting (Include Credential): Mathew Mo MD Scribe Attestation: Ney Laboy, scribed for Mathew Mo MD on 11/22/19 at 1809. Scribe Documentation Reviewed: Yes Provider Attestation: The documentation as recorded by the Ney kiran accurately reflects the service I personally performed and the decisions made by me, Mathew Mo MD Status of Scribe Document: Viewed
[2019-11-22 14:53] LABS: Albumin 3.5 g/dL (3.2-5.2); Albumin/Globulin Ratio 1.6 (1-3); BUN/Creatinine Ratio 17.2 (8-20); Calcium 9.3 mg/dL (8.6-10.3); EGFR African American 73.9 (>60); EGFR Non-African American 61.1 (>60); Globulin 2.2 g/dL (2-4); Potassium 4.2 mmol/L (3.5-5.0); Total Bilirubin 0.5 mg/dL (0.2-1.0); Total Protein 5.7 g/dL (6.4-8.9)
--- OUTSIDE RECORDS SUMMARY | 2019-11-22 15:12 | XMS REPORT | Continuity of Care Document ---
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 Onset: 2017 (acute) exacerbation Schizophrenia Ney Faulkner M.D. Onset: 06/07/2018 Essential hypertension Ney Faulkner M.D. Onset: 06/07/2018 Tobacco use Ney Faulkner M.D. Onset: 06/07/2018 Acute hypoxemic respiratory failure Ney Faulkner M.D. Onset: 06/08/2018 Peripheral vascular disease Ney Faulkner M.D. Onset: 06/09/2018 Schizoaffective disorder Kesha Nation NP Onset: 08/31/2018 Bipolar disorder Kesha Nation NP Onset: 08/31/2018 Social History Type Date Description Comments Sex Unknown Allergies, Adverse Reactions, Alerts Active Allergies Reaction Severity Comments Date Wellbutrin per [facility] 02/09/[address] [facility] 02/09/[address] [facility] 02/09/[address] [facility] 02/09/[address] [facility] 02/09/[address] [facility] 02/09/2016 Medications Active Medications SIG Qnty Indications Ordering Provider Date Warfarin Sodium take as directed Unknown 01/10/2016 5mg Tablets Levaquin 1 by mouth every day Unknown 01/05/2016 750mg Tablets Amlodipine Besylate Unknown Spiriva Handihaler daily Unknown Lisinopril 1 by mouth every day Unknown 5mg Tablets Mucinex 2 tablet po b.i.d Unknown 600mg Tablets for cough ER 12HR Flonase Allergy 2 sprays both Unknown Relief nostrils daily Prednisone tapered dose Unknown Zyprexa 1 tablet po at Unknown bedtime Singulair 1 by mouth every day Unknown 10mg Tablets Qvar 1 puff inhaled b.i.d Unknown Proair HFA 2 puffs by mouth Unknown every 4 hours as 108(90Base) mcg/Act needed Aerosol Nicotine Patch Transdermal patch Unknown 14mg apply daily Nexium 1 by mouth every day Unknown 40mg Capsules DR Remeron 1/2 tablet by mouth Unknown 15mg Tablets daily Maalox Plus on a prn basis Unknown 30mg Second [place] Carbonate ER 1 by mouth po daily Unknown 450mg Tablets ER Flovent HFA one puffs inhaled Unknown twice a day 220mcg/Act Aerosol Isosorbide 1 by mouth every day Unknown Mononitrate ER 30mg Tablets ER 24HR Lipitor 1 by mouth every Unknown 10mg Tablets night at bedtime Immunizations Description No Information Available Vital Signs Description No Information Available Results Test Acquired Date Facility Test Result H/L Range Note Influenza A & B 07/14/2019 [facility] Flu AB (SEE NOTE) [address] [place] [address] [phone] Influenza A Molecular NEGATIVE Negative 2 Influenza B Molecular NEGATIVE Negative 1 Suboptimal collection technique may reduce sensitivity of test. Refer to the [facility] Test Catalog for collection information: [email or web address] As with all diagnostic procedures, the laboratory results obtained should be used in conjunction with other clinical information available to the physician, including confirmation by another method, as applicable. 2 In Store Demonstrator: [id number] Procedures Description No Information Available Medical Devices Description No Information Available Encounters Type Date Location Provider Dx Diagnosis [facility]:10a [facility] [place], FIELD OPERATOR pulmonary disease w Hospitalists (acute) exacerbation J96.21 Acute and chronic respiratory failure with hypoxia I10 Essential (primary) hypertension E78.5 Hyperlipidemia, unspecified K21.9 Gastro-esophageal reflux disease without esophagitis I25.10 Athscl heart disease of [place] coronary artery w/o ang pctrs F25.0 Schizoaffective disorder, bipolar type Office Visit 11/07/2019 [facility] Khalida J44.1 Chronic 10:10a Assoc,collin Shore NP obstructive Hospitalists pulmonary disease w (acute) exacerbation J96.21 Acute and chronic respiratory failure with hypoxia I10 Essential (primary) hypertension E78.5 Hyperlipidemia, unspecified K21.9 Gastro-esophageal reflux disease without esophagitis I25.10 Athscl heart disease of [place] coronary artery w/o ang pctrs F25.0 Schizoaffective disorder, bipolar type Z86.718 Personal history of other venous thrombosis and embolism [facility] Assoc,collin Hay M.D. obstructive Hospitalists pulmonary disease w (acute) exacerbation I10 Essential (primary) hypertension E78.5 Hyperlipidemia, unspecified K21.9 Gastro-esophageal reflux disease without esophagitis F20.9 Schizophrenia, unspecified Z86.718 Personal history of other venous thrombosis and embolism Office Visit 07/16/2019 9:29a [facility] Carol Stacey, J44.1 Chronic Assoc,collin TALBOT obstructive Hospitalists pulmonary disease w (acute) exacerbation J96.21 Acute and chronic respiratory failure with hypoxia J96.22 Acute and chronic respiratory failure with hypercapnia A08.4 Viral intestinal infection, unspecified I10 Essential (primary) hypertension F20.9 Schizophrenia, unspecified I25.10 Athscl heart disease of [place] coronary artery w/o ang pctrs E78.5 Hyperlipidemia, unspecified K21.9 Gastro-esophageal reflux disease without esophagitis Z86.718 Personal history of other venous thrombosis and embolism Office Visit 07/14/2019 9:28a [facility] Graham R19.7 Diarrhea, Assoc,FIONA [place] unspecified Hospitalists R11.2 Nausea with vomiting, unspecified E86.0 Dehydration J44.1 Chronic obstructive pulmonary disease w (acute) exacerbation I10 Essential (primary) hypertension I73.9 Peripheral vascular disease, unspecified F20.9 Schizophrenia, unspecified Assessments Date Code Description Provider 11/08/2019 J44.1 Chronic obstructive pulmonary disease Khalida Shore, FIELD OPERATOR with (acute) exacerbation 11/08/2019 J96.21 Acute and chronic respiratory failure Khalida Shore, FIELD OPERATOR with hypoxia 11/08/2019 I10 Essential (primary) hypertension Khalida Shore, FIELD OPERATOR 11/08/2019 E78.5 Hyperlipidemia, unspecified Khalida Shore, FIELD OPERATOR 11/08/2019 K21.9 Gastro-esophageal reflux disease without Khalida Shore, FIELD OPERATOR esophagitis 11/08/2019 I25.10 Atherosclerotic heart disease of [place] Khalida Shore, FIELD OPERATOR coronary artery without angina pectoris 11/08/2019 F25.0 Schizoaffective disorder, bipolar type Khalida Shore, FIELD OPERATOR 11/07/2019 J44.1 Chronic obstructive pulmonary disease Khalida Shore FIELD OPERATOR with (acute) exacerbation 11/07/2019 J96.21 Acute and chronic respiratory failure Khalida Shore FIELD OPERATOR with hypoxia 11/07/2019 I10 Essential (primary) hypertension Khalida Shore, FIELD OPERATOR 11/07/2019 E78.5 Hyperlipidemia, unspecified Khalida Shore, FIELD OPERATOR 11/07/2019 K21.9 Gastro-esophageal reflux disease without Khalida Shore, FIELD OPERATOR esophagitis 11/07/2019 I25.10 Atherosclerotic heart disease of [place] Khalida Shore, FIELD OPERATOR coronary artery without angina pectoris 11/07/2019 F25.0 Schizoaffective disorder, bipolar type Khalida Shore, FIELD OPERATOR 11/07/2019 Z86.718 Personal history of other venous Khalida Shore FIELD OPERATOR thrombosis and embolism 11/06/2019 J44.1 Chronic obstructive pulmonary disease Mario Hay M.D. with (acute) exacerbation 11/06/2019 I10 Essential (primary) hypertension Mario Hay M.D. 11/06/2019 E78.5 Hyperlipidemia, unspecified Mario Hay M.D. 11/06/2019 K21.9 Gastro-esophageal reflux disease without Mario Hay M.D. esophagitis 11/06/2019 F20.9 Schizophrenia, unspecified Mario Hay M.D. 11/06/2019 Z86.718 Personal history of other venous Mario Hay M.D. thrombosis and embolism 07/16/2019 J44.1 Chronic obstructive pulmonary disease Carol Stacey, FIELD OPERATOR with (acute) exacerbation 07/16/2019 J96.21 Acute and chronic respiratory failure Carol Stacey, FIELD OPERATOR with hypoxia 07/16/2019 J96.22 Acute and chronic respiratory failure Carol Stacey, FIELD OPERATOR with hypercapnia 07/16/2019 A08.4 Viral intestinal infection, unspecified Carol Stacey, FIELD OPERATOR 07/16/2019 I10 Essential (primary) hypertension Carol Stacey, FIELD OPERATOR 07/16/2019 F20.9 Schizophrenia, unspecified Carol Stacey, FIELD OPERATOR 07/16/2019 I25.10 Atherosclerotic heart disease of nond[place] Carol Stacey, FIELD OPERATOR coronary artery without angina pectoris 07/16/2019 E78.5 Hyperlipidemia, unspecified Carol Stacey, FIELD OPERATOR 07/16/2019 K21.9 Gastro-esophageal reflux disease without Carol Stacey, FIELD OPERATOR esophagitis 07/16/2019 Z86.718 Personal history of other venous Carol Stacey, FIELD OPERATOR thrombosis and embolism 07/15/2019 J44.1 Chronic obstructive pulmonary disease Carol Stacey, FIELD OPERATOR with (acute) exacerbation 07/15/2019 J96.21 Acute and chronic respiratory failure Carol Stacey, FIELD OPERATOR with hypoxia 07/15/2019 J96.22 Acute and chronic respiratory failure Carol Stacey, FIELD OPERATOR with hypercapnia 07/15/2019 A08.4 Viral intestinal infection, unspecified Carol Stacey, FIELD OPERATOR 07/15/2019 I10 Essential (primary) hypertension Carol Stacey, FIELD OPERATOR 07/15/2019 F20.9 Schizophrenia, unspecified Carol Stacey, FIELD OPERATOR 07/15/2019 I25.10 Atherosclerotic heart disease of [place] Carol Stacey, FIELD OPERATOR coronary artery without angina pectoris 07/15/2019 E78.5 Hyperlipidemia, unspecified Carol Stacey, FIELD OPERATOR 07/15/2019 K21.9 Gastro-esophageal reflux disease without Carol Stacey, FIELD OPERATOR esophagitis 07/15/2019 Z86.718 Personal history of other venous Carol Stacey, FIELD OPERATOR thrombosis and embolism 07/14/2019 R19.7 Diarrhea, unspecified FIONA Ambrose 07/14/2019 R11.2 Nausea with vomiting, unspecified FIONA [place] 07/14/2019 E86.0 Dehydration FIONA [place] 07/14/2019 J44.1 Chronic obstructive pulmonary disease FIONA [place] with (acute) exacerbation 07/14/2019 I10 Essential (primary) hypertension FIONA [place] 07/14/2019 I73.9 Peripheral vascular disease, unspecified FIONA [place] 07/14/2019 F20.9 Schizophrenia, unspecified FIONA [place] Plan of Treatment No Information Available Functional Status Description No Information Available Mental Status Description No Information Available Referrals Description No Information Available
--- OUTSIDE RECORDS SUMMARY | 2019-11-22 15:12 | XMS REPORT | Continuity of Care Document ---
:1955 External Reference #:[id number] Author Name Khalida Shore NP (transmitted by agent of provider Nila Mcnamara) Address [address] [place] [address] Care Team Providers Name Role Phone Radha Nguyen MD - Internal Care Team Information New Account Interviewer Medicine Problems Active Problems Provider Date Chronic [...] Allergies Reaction Severity Comments Date Wellbutrin per [facility] 02/09/2016 Cephalosporins per [facility] 02/09/2016 Chlorpromazine per [facility] 02/09/2016 Erythromycin per [facility] 02/09/2016 Penicillin per [facility] 02/09/2016 Tobramycin per [facility] 02/09/2016 Medications Active Medications SIG Qnty Indications [...] Plus on a prn basis Unknown 30mg [place] Carbonate ER 1 by mouth po daily [...] Range Note Influenza A & B 07/14/2019 [facility] Flu AB (SEE NOTE) [address] [place] [address] [phone] Influenza A Molecular NEGATIVE Negative 2 Influenza B Molecular NEGATIVE Negative 1 Suboptimal collection technique may reduce sensitivity of test. Refer to the [facility] Test Catalog for collection information: [email or web address] As with all diagnostic procedures, the laboratory results obtained should be used in conjunction with other clinical information available to the physician, including confirmation by another method, as applicable. 2 Commercial Sales Specialist: [id number] Procedures Description No Information Available Medical Devices Description No Information Available Encounters Type Date Location Provider Dx Diagnosis [facility]:10a Assoc,pc [place], MECHANIST pulmonary disease w Hospitalists (acute) exacerbation J96.21 Acute and chronic respiratory failure with hypoxia I10 Essential (primary) hypertension E78.5 Hyperlipidemia, unspecified K21.9 Gastro-esophageal reflux disease without esophagitis I25.10 Athscl heart disease of [place] coronary artery w/o ang pctrs F25.0 Schizoaffective disorder, bipolar type Z86.718 Personal history of other venous thrombosis and embolism [facility]09[facility] Assoc,collin Hay M.D. obstructive Hospitalists pulmonary disease w (acute) exacerbation I10 Essential (primary) hypertension E78.5 Hyperlipidemia, unspecified K21.9 Gastro-esophageal reflux disease without esophagitis F20.9 Schizophrenia, unspecified Z86.718 Personal history of other venous thrombosis and embolism Office Visit 07/16/2019 9:29a [facility] Carol Stacey, J44.1 Chronic Assoc,collin TALBOT obstructive Hospitalists pulmonary disease w (acute) exacerbation J96.21 Acute and chronic respiratory failure with hypoxia J96.22 Acute and chronic respiratory failure with hypercapnia A08.4 Viral intestinal infection, unspecified I10 Essential (primary) hypertension F20.9 Schizophrenia, unspecified I25.10 Athscl heart disease of [place] coronary artery w/o ang pctrs E78.5 Hyperlipidemia, unspecified K21.9 Gastro-esophageal reflux disease without esophagitis Z86.718 Personal history of other venous thrombosis and embolism Office Visit 07/14/2019 9:28a [facility] Graham R19.7 Diarrhea, Assoc,pc FIONA [place] unspecified Hospitalists R11.2 Nausea with vomiting, unspecified E86.0 Dehydration J44.1 Chronic obstructive pulmonary disease w (acute) exacerbation I10 Essential (primary) hypertension I73.9 Peripheral vascular disease, unspecified F20.9 Schizophrenia, unspecified Assessments Date Code Description Provider 11/08/2019 J44.1 Chronic obstructive pulmonary disease Khalida Shore NP with (acute) exacerbation 11/08/2019 J96.21 Acute and chronic respiratory failure Khalida Shore NP with hypoxia 11/08/2019 I10 Essential (primary) hypertension Khalida Shore NP 11/08/2019 E78.5 Hyperlipidemia, unspecified Khalida Shore NP 11/08/2019 K21.9 Gastro-esophageal reflux disease without Khalida Shore NP esophagitis 11/08/2019 I25.10 Atherosclerotic heart disease of [place] Khalida Shore 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 11/08/2019 F25.0 Schizoaffective disorder, bipolar type Khalida Shore, MECHANIST 11/07/2019 J44.1 Chronic obstructive pulmonary disease Khalida Shore, MECHANIST with (acute) exacerbation 11/07/2019 J96.21 Acute and chronic respiratory failure Khalida Shore, MECHANIST with hypoxia 11/07/2019 I10 Essential (primary) hypertension Khalida Shore, MECHANIST 11/07/2019 E78.5 Hyperlipidemia, unspecified Khalida Shore, MECHANIST 11/07/2019 K21.9 Gastro-esophageal reflux disease without Khalida Shore, MECHANIST esophagitis 11/07/2019 I25.10 Atherosclerotic heart disease of [place] Khalida Shore 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 11/07/2019 F25.0 Schizoaffective disorder, bipolar type Khalida Shore, MECHANIST 11/07/2019 Z86.718 Personal history of other venous Khalida Shore MECHANIST thrombosis and embolism 11/06/2019 J44.1 Chronic obstructive [...] J44.1 Chronic obstructive pulmonary disease Carol Stacey, MECHANIST with (acute) exacerbation 07/16/2019 J96.21 Acute and chronic respiratory failure Carol Stacey, MECHANIST with hypoxia 07/16/2019 J96.22 Acute and chronic respiratory failure Carol Stacey, MECHANIST with hypercapnia 07/16/2019 A08.4 Viral intestinal infection, unspecified Carol Stacey, MECHANIST 07/16/2019 I10 Essential (primary) hypertension Carol Stacey, MECHANIST 07/16/2019 F20.9 Schizophrenia, unspecified Carol Stacey, MECHANIST 07/16/2019 I25.10 Atherosclerotic heart disease of [place] Carol Stacey, 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 07/16/2019 E78.5 Hyperlipidemia, unspecified Carol Stacey, MECHANIST 07/16/2019 K21.9 Gastro-esophageal reflux disease without Carol Stacey, MECHANIST esophagitis 07/16/2019 Z86.718 Personal history of other venous Carol Stacey, MECHANIST thrombosis and embolism 07/15/2019 J44.1 Chronic obstructive pulmonary disease Carol Stacey, MECHANIST with (acute) exacerbation 07/15/2019 J96.21 Acute and chronic respiratory failure Carol Stacey, MECHANIST with hypoxia 07/15/2019 J96.22 Acute and chronic respiratory failure Carol Stacey, MECHANIST with hypercapnia 07/15/2019 A08.4 Viral intestinal infection, unspecified Carol Stacey, MECHANIST 07/15/2019 I10 Essential (primary) hypertension Carol Stacey, MECHANIST 07/15/2019 F20.9 Schizophrenia, unspecified Carol Stacey, MECHANIST 07/15/2019 I25.10 Atherosclerotic heart disease of [place] Carol Stacey, 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 07/15/2019 E78.5 Hyperlipidemia, unspecified Carol Stacey, MECHANIST 07/15/2019 K21.9 Gastro-esophageal reflux disease without Carol Stacey, MECHANIST esophagitis 07/15/2019 Z86.718 Personal history of other venous Carol Stacey, MECHANIST thrombosis and embolism 07/14/2019 R19.7 Diarrhea, unspecified [...]
--- OUTSIDE RECORDS SUMMARY | 2019-11-22 15:12 | XMS REPORT | Continuity of Care Document ---
:1955 External Reference #:[id number] Author Name Mario Hay M.D. (transmitted by agent of provider Nila Mcnamara) Address [address] [place] [address] Care Team Providers Name Role Phone Radha Nguyen MD - Internal Care Team Information Log Grader Medicine Problems Active Problems Provider Date Chronic [...] Allergies Reaction Severity Comments Date Wellbutrin per [facility] 02/09/2016 Cephalosporins per [facility] 02/09/2016 Chlorpromazine per [facility] 02/09/2016 Erythromycin per [facility] 02/09/2016 Penicillin per [facility] 02/09/2016 Tobramycin per [facility] 02/09/2016 Medications Active Medications SIG Qnty Indications [...] Plus on a prn basis Unknown 30mg [place] Carbonate ER 1 by mouth po daily [...] Range Note Influenza A & B 07/14/2019 [facility] Flu AB (SEE NOTE) [address] Disclaimer [place] [id number] [phone] Influenza A Molecular NEGATIVE Negative 2 Influenza B Molecular NEGATIVE Negative 1 Suboptimal collection technique may reduce sensitivity of test. Refer to the [facility] Test Catalog for collection information: [email or web address] As with all diagnostic procedures, the laboratory results obtained should be used in conjunction with other clinical information available to the physician, including confirmation by another method, as applicable. 2 Sustainability Officer: [id number] Procedures Description No Information Available Medical Devices Description No Information Available Encounters Type Date Location Provider Dx Diagnosis Office Visit 11/06/2019 [facility] Mario J44.1 Chronic obstructive 10:09a Assoc,pc [place], pulmonary disease w [place] M.D. (acute) exacerbation I10 Essential (primary) hypertension E78.5 Hyperlipidemia, unspecified K21.9 Gastro-esophageal reflux disease without esophagitis F20.9 Schizophrenia, unspecified Z86.718 Personal history of other venous thrombosis and embolism Office Visit 07/16/2019 9:29a [facility] Carol Stacey, J44.1 Chronic Assoc,pc [employer] obstructive Hospitalists pulmonary disease w (acute) exacerbation J96.21 Acute and chronic respiratory failure with hypoxia J96.22 Acute and chronic respiratory failure with hypercapnia A08.4 Viral intestinal infection, unspecified I10 Essential (primary) hypertension F20.9 Schizophrenia, unspecified I25.10 Athscl heart disease of [place] coronary artery w/o ang pctrs E78.5 Hyperlipidemia, unspecified K21.9 Gastro-esophageal reflux disease without esophagitis Z86.718 Personal history of other venous thrombosis and embolism Office Visit 07/14/2019 9:28a [facility] Graham R19.7 Diarrhea, Assoc,pc FIONA [place] unspecified Hospitalists R11.2 Nausea with vomiting, unspecified E86.0 Dehydration J44.1 Chronic obstructive pulmonary disease w (acute) exacerbation I10 Essential (primary) hypertension I73.9 Peripheral vascular disease, unspecified F20.9 Schizophrenia, unspecified Assessments Date Code Description Provider 11/06/2019 J44.1 Chronic obstructive pulmonary disease Mario Hay M.D. with (acute) exacerbation 11/06/2019 I10 Essential (primary) hypertension Mario Hay M.D. 11/06/2019 E78.5 Hyperlipidemia, unspecified Mario Hay M.D. 11/06/2019 K21.9 Gastro-esophageal reflux disease without Mario Hay M.D. esophagitis 11/06/2019 F20.9 Schizophrenia, unspecified Mario Hay M.D. 11/06/2019 Z86.718 Personal history of other venous Mario Hay M.D. thrombosis and embolism 07/16/2019 J44.1 Chronic obstructive pulmonary disease Carolashley Ibarra, SOCCER PLAYER with (acute) exacerbation 07/16/2019 J96.21 Acute and chronic respiratory failure Carolashley Ibarra [employer] PLAYER with hypoxia 07/16/2019 J96.22 Acute and chronic respiratory failure Carol Stacey, [employer] PLAYER with hypercapnia 07/16/2019 A08.4 Viral intestinal infection, unspecified Carol Stacey, SOCCER PLAYER 07/16/2019 I10 Essential (primary) hypertension Carol Stacey, SOCCER PLAYER 07/16/2019 F20.9 Schizophrenia, unspecified Carol Stacey, SOCCER PLAYER 07/16/2019 I25.10 Atherosclerotic heart disease of [place] Carol Stacey, SOCCER PLAYER coronary artery without angina pectoris 07/16/2019 E78.5 Hyperlipidemia, unspecified Carol Stacey, SOCCER PLAYER 07/16/2019 K21.9 Gastro-esophageal reflux disease without Carol Stacey, SOCCER PLAYER esophagitis 07/16/2019 Z86.718 Personal history of other venous Carol Stacey, SOCCER PLAYER thrombosis and embolism 07/15/2019 J44.1 Chronic obstructive pulmonary disease Carol Stacey, SOCCER PLAYER with (acute) exacerbation 07/15/2019 J96.21 Acute and chronic respiratory failure Carol Stacey, SOCCER PLAYER with hypoxia 07/15/2019 J96.22 Acute and chronic respiratory failure Carol Stacey, SOCCER PLAYER with hypercapnia 07/15/2019 A08.4 Viral intestinal infection, unspecified Carol Stacey, SOCCER PLAYER 07/15/2019 I10 Essential (primary) hypertension Carol Stacey, SOCCER PLAYER 07/15/2019 F20.9 Schizophrenia, unspecified Carol Stacey, SOCCER PLAYER 07/15/2019 I25.10 Atherosclerotic heart disease of [place] Carol Stacey, SOCCER PLAYER coronary artery without angina pectoris 07/15/2019 E78.5 Hyperlipidemia, unspecified Carol Stacey, SOCCER PLAYER 07/15/2019 K21.9 Gastro-esophageal reflux disease without Carol Stacey, SOCCER PLAYER esophagitis 07/15/2019 Z86.718 Personal history of other venous Carol Stacey, SOCCER PLAYER thrombosis and embolism 07/14/2019 R19.7 Diarrhea, unspecified [...]
[2019-11-22 15:38] LABS: Urine Appearance Clear; Urine Bilirubin Negative (Negative); Urine Blood Negative (Negative); Urine Color Yellow; Urine Glucose Negative (Negative); Urine Ketones Negative (Negative); Urine Nitrite Negative (Negative); Urine Protein Negative (Negative); Urine Specific Gravity 1.005 (1.010-1.030); Urine Urobilinogen Negative (Negative)
[2019-11-22 15:41] LABS: ABS Eosinophils 0.1 10^3/ul (0-0.6); ABS Lymphocytes 0.8 10^3/ul (1.0-4.8); ABS Monocytes 0.5 10^3/ul (0-0.8); ABS Neutrophils 8.1 10^3/ul (1.5-7.7); Eosinophil % 1.5 %; Hematocrit 37 % (35-47); Hemoglobin 12.4 g/dL (12.0-16.0); Lymphocyte % 8.6 %; Mean Corpuscular HGB Conc 33 g/dL (31-36); Mean Corpuscular Hemoglobin 29 pg (27-31); Mean Corpuscular Volume 87 fL (80-97); Mean Platelet Volume 8.5 fL (7.4-10.4); Platelet Count 124 10^3/uL (150-450); Red Cell Distribution Width 17 % (10-15); White Blood Count 9.6 10^3/uL (3.5-10.8)
[2019-11-22 16:15] VITALS: BP 128/64
== END 2019-11-22 16:13 | disposition home or self-care (01) ==
LOC: ED 13:42
DX: R10.11 Right upper quadrant pain (principal); R11.2 Nausea with vomiting, unspecified; F17.210 Nicotine dependence, cigarettes, uncomplicated; I25.10 Atherosclerotic heart disease of native coronary artery without angina pectoris; E78.00 Pure hypercholesterolemia, unspecified; I10 Essential (primary) hypertension; I73.9 Peripheral vascular disease, unspecified; Z86.79 Personal history of other diseases of the circulatory system; K21.9 Gastro-esophageal reflux disease without esophagitis; F41.9 Anxiety disorder, unspecified; Z79.899 Other long term (current) drug therapy; Z86.718 Personal history of other venous thrombosis and embolism; Z79.01 Long term (current) use of anticoagulants; Z88.0 Allergy status to penicillin; Z88.8 Allergy status to other drugs, medicaments and biological substances
CPT/HCPCS: 36415; 80053; 81003; 83605; 83690; 85025; 96361; 96374; 99283; A9270-GY; J2405

== ENCOUNTER 2019-12-01 10:38 | Emergency (ER) | payer MEDICARE, MEDICAID ==
--- NOTE | 2019-12-01 11:09 | ED ---
Respiratory - HPI Summary HPI Summary: This patient is a 64 year old female with a Hx of COPD presenting to [facility] with a chief complaint of SOB since 3 days ago. She states this feels like a COPD flare up and it has gotten worse since this morning. She reports chest pain. She was here with vomiting and diarrhea 11/21 which she states which has resolved. She states there is clear nasal discharge which she states is normal for her. She states she has her typical cough, and is not productive. She states her chest pain started as a sharp pain last night in the mid sternum. She states she is unsure if anything makes it better or worse and states it is a constant pain. She denies any radiation of the pain. She states she is on home O2 2L. She is still on Coumadin. 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 She rates the pain in her chest an 8/10 in severity. She denies known contact with sick persons. She states she took 2 breathing treatments of albuterol at home and one in the ambulance. Patient denies any fever, chills, erythema of eyes, sore throat, abdominal pain , nausea/vomiting, dysuria, hematuria, myalgia, edema, rash, or dizziness. - History of Current Complaint Chief Complaint: EDShortnessOfBreath Stated Complaint: SHORT OF BREATH PER EMS Time Seen by Provider: 12/01/19 10:41 Hx Obtained From: Patient Onset/Duration: Lasting Hours Pain Intensity: 8 Character: Wheezing - Allergy/Home Medications Allergies/Adverse Reactions: Allergies Allergy/AdvReac Type Severity Reaction Status Date / Time bupropion [From Wellbutrin] Allergy Agitation Verified 12/01/19 10:54 Cephalosporins Allergy Agitation Verified 12/01/19 10:54 chlorproethazine Allergy Agitation Verified 12/01/19 10:54 erythromycin base Allergy Diarrhea Verified 12/01/19 10:54 Penicillins Allergy Hives Verified 12/01/19 10:54 tobramycin Allergy Diarrhea Verified 12/01/19 10:54 doxycycline AdvReac Severe See Comment Verified 12/01/19 10:54 Home Medications: Home Medications [place] Carbonate TAB* 300 mg PO BID #30 tab 07/04/17 [Rx Confirmed 12/01/19] Isosorbide Mononitrate ER TAB* [Imdur ER TAB*] 30 mg PO DAILY 08/17/18 [History Confirmed 12/01/19] OLANzapine TAB* [Zyprexa 10 MG TAB*] 10 mg PO BEDTIME 08/17/18 [History Confirmed 12/01/19] amLODIPine TAB* [Norvasc 5 mg TAB*] 10 mg PO DAILY 08/17/18 [History Confirmed 12/01/19] Montelukast Sodium TAB* [Singulair 10 MG TAB*] 10 mg PO DAILY 12/23/18 [History Confirmed 12/01/19] Atorvastatin* [Lipitor 10 MG*] 10 mg PO DAILY 06/05/19 [History Confirmed ] Gabapentin CAP(*) [Neurontin 300 CAP(*)] 300 - 600 mg PO BEDTIME 06/05/19 [ History Confirmed 12/01/19] Albuterol/Ipratropium NEB.GINETTE* [Duoneb (Albuterol 2.5 MG/Ipratropium 0.5 MG)] 1 neb INH Q4H PRN 07/14/19 [History Confirmed 12/01/19] Ferrous Gluconate TAB* [Fergon TAB*] 324 mg PO DAILY 07/14/19 [History Confirmed 12/01/19] Gabapentin CAP(*) [Neurontin 100 mg CAP(*)] 200 mg PO BID 07/14/19 [History Confirmed 12/01/19] Mag Hydrox/Aluminum Hyd/Simeth [Maalox Maximum Strength Susp] 15 ml PO DAILY 12/27 [History Confirmed 12/01/19] Metoprolol Tartrate TAB* [Lopressor TAB*] 25 mg PO BID 07/14/19 [History Confirmed 12/01/19] Mirtazapine TAB* [Remeron TAB*] 15 mg PO BEDTIME 07/14/19 [History Confirmed ] Albuterol HFA INHALER* [Ventolin HFA Inhaler*] 2 puff INH Q4H PRN 11/06/19 [ History Confirmed 12/01/19] Fluticasone NASAL SPRAY 50MCG* [Flonase NASAL SPRAY 50MCG*] 2 spray BOTH NARES DAILY 11/06/19 [History Confirmed 12/01/19] Mag Hydrox/Aluminum Hyd/Simeth [Antacid Anti-Gas Liquid] 5 ml PO DAILY 11/06/19 [History Confirmed 12/01/19] Triamcinolone Acetonide [Triderm] 0.5 % TOPICAL BID 11/06/19 [History Confirmed 12/01/19] Umeclidin/Vilant 62.5 MDI(NF) [ANORO 62.5/25 Ellipta DEVICE (NF)] 1 inh INH DAILY 11/08/19 [History Confirmed 12/01/19] ALPRAZolam TAB* [Xanax TAB*] 0.25 mg PO Q8H PRN 11/17/19 [History Confirmed ] Warfarin TAB(*) [Coumadin TAB(*)] 4.5 mg PO DAILY 11/17/19 [History Confirmed ] Esomeprazole(NF) [Nexium(NF)] 40 mg PO DAILY 11/22/19 [History Confirmed ] Aspirin EC TAB* [Ecotrin EC Low Dose 81 MG*] 81 mg PO DAILY 12/01/19 [History Confirmed 12/01/19] DOXYcycline CAP(*) [DOXYcycline 100MG CAP(*)] 100 mg PO BID #10 cap 12/01/19 [Rx ] Fluticasone/Vilanterol MDI(NF) [Breo Ellipta MDI 200/25(NF)] 1 puff INH DAILY [History Confirmed 12/01/19] HYDROcodone/ACETAMIN 5-325 MG* [[place] 5-325 TAB*] 1 tab PO Q6H PRN 12/01/19 [ History Confirmed 12/01/19] Morphine ORAL.CONC BULK BOT* [Roxanol ORAL.CONC Bottle*] 0.5 ml PO Q3H PRN 11/30 [History Confirmed 12/01/19] Nitroglycerin TAB 0.4 MG* 0.4 mg SL . NEEDED PRN 12/01/19 [History Confirmed 12/01/19] Sodium Chloride [Saline Nasal [place]] 1 spray BOTH NARES TID 12/01/19 [History Confirmed 12/01/19] Umeclidinium 62.5 MDI(NF) [Incruse ELLIPTA MDI (NF)] 1 puff INH DAILY 12/01/19 [ History Confirmed 12/01/19] predniSONE 20 mg TAB [Deltasone 20 MG TAB*] 40 mg PO DAILY #8 tab 12/01/19 [Rx] PMH/Surg Hx/FS Hx/Imm Hx Endocrine/Hematology History: Reports: Hx Anticoagulant Therapy, Hx Anemia, Other Endocrine/Hematological Disorders - L leg DVT Denies: Hx Diabetes, Hx Systemic Lupus Erythematosus, Hx Thyroid Disease Cardiovascular History: Reports: Hx Angina, Hx Coronary Artery Disease, Hx Deep Vein Thrombosis, Hx Hypercholesterolemia, Hx Hypertension, Hx Peripheral Vascular Disease, Other Cardiovascular Problems/Disorders - PERIPHERAL ARTERY DISEASE; CAD; DVT Denies: Hx Auto Implanted Cardiovert Defib, Hx Congestive Heart Failure, Hx Pacemaker/ICD Respiratory History: Reports: Hx Asthma, Hx Chronic Bronchitis, Hx Chronic Obstructive Pulmonary Disease (COPD) - 2L at home, Hx Pneumonia, Hx Seasonal Allergies, Other Respiratory Problems/Disorders - PNA Denies: Hx Cystic Fibrosis, Hx Lung Cancer, Hx Pleural Effusion, Hx Pulmonary Edema, Hx Pulmonary Embolism, Hx Sleep Apnea GI History: Reports: Hx Gall Bladder Disease - removed, Hx Gastroesophageal Reflux Disease, Hx Irritable Bowel, Other GI Disorders - hernia repair X 2 Denies: Hx Cirrhosis, Hx Crohn's Disease, Hx Diverticulosis History: Denies: Hx Dialysis, Hx Renal Disease Musculoskeletal History: Denies: Hx Arthritis, Hx Rheumatoid Arthritis, Hx Osteoporosis Sensory History: Reports: Hx Contacts or Glasses Denies: Hx Glaucoma, Hx Deafness, Hx Hearing Aid, Hx Hearing Problem Opthamlomology History: Reports: Hx Contacts or Glasses Denies: Hx Glaucoma Neurological History: Denies: Hx Headaches, Hx Seizures, Hx Transient Ischemic Attacks (TIA) Psychiatric History: Reports: Hx Anxiety, Hx Depression, Hx Inpatient Treatment , Hx Community Mental Health Tx, Hx Schizophrenia, Hx Bipolar Disorder, Hx Suicide Attempt Denies: Hx Eating Disorder, Hx Panic Disorder, Hx of Violent Episodes Against Others - Cancer History Hx Chemotherapy: No - Surgical History Surgery Procedure, Year, and Place: bilat thumb repairs, hernia repairs X 2, cholecystectomy, appendectomy Hx Anesthesia Reactions: No - Immunization History Date of Tetanus Vaccine: UTD Date of Influenza Vaccine: 06/2018 Infectious Disease History: No Infectious Disease History: Denies: Hx Clostridium Difficile, Hx Hepatitis, Hx Human Immunodeficiency Virus (HIV), Hx of Known/Suspected MRSA, Hx Shingles, Hx Tuberculosis, Traveled Outside the [place] in Last 30 Days - Family History Known Family History: Positive: Cardiac Disease - IA, Other - schizophrenia, anxiety Negative: Hypertension, Diabetes Family History: Negative HTN/DM per EMR - Social History Alcohol Use: None Hx Substance Use: No Substance Use Type: Reports: None Hx Tobacco Use: Yes Smoking Status (MU): Light Every Day Tobacco Smoker Type: Cigarettes Amount Used/How Often: 1 PPD Have You Smoked in the Last Year: Yes Review of Systems Negative: Fever, Chills Negative: Erythema Positive: Nasal Discharge. Negative: Sore Throat Positive: Chest Pain Positive: Shortness Of Breath, Cough Negative: Abdominal Pain, Vomiting, Nausea Negative: dysuria, hematuria Negative: Myalgia, Edema Negative: Rash Neurological/Mental Status: Other - Neg: Dizziness All Other Systems Reviewed And Are Negative: No Physical Exam - Summary Physical Exam Summary: Constitutional: Well-developed, Well-nourished, Alert. (-) Distressed Skin: Warm, Dry HENT: Normocephalic; Atraumatic Eyes: Conjunctiva normal Neck: Musculoskeletal ROM normal neck. (-) JVD, (-) Stridor, (-) Tracheal deviation Cardio: Rhythm regular, rate normal, Heart sounds normal; Intact distal pulses; Radial pulses are 2+ and symmetric. (-) Murmur Pulmonary/Chest wall: Effort normal. (-) Respiratory distress, (-) Wheezes, (-) Rales. Reports typical cough which is productive of yellow sputum. Diminished breath sounds. Abd: Soft, (-) tenderness, (-) Distension, (-) Guarding, (-) Rebound Musculoskeletal: (-) Edema Lymph: (-) Cervical adenopathy Neuro: Alert, Oriented x3 Psych: Mood and affect Normal Triage Information Reviewed: Yes Vital Signs On Initial Exam: Initial Vitals Temp Pulse Resp BP Pulse Ox 97.1 F 80 26 138/79 96 12/01/19 10:51 12/01/19 10:51 12/01/19 10:51 12/01/19 10:51 12/01/19 10:51 Vital Signs Reviewed: Yes Procedures - Sedation Patient Received Moderate/Deep Sedation with Procedure: No Diagnostics - Vital Signs Vital Signs Temp Pulse Resp BP Pulse Ox 12/01/19 10:51 97.1 F 80 26 138/79 96 - Laboratory Result Diagrams: 12/01/19 11:00 12/01/19 15:40 Lab Statement: Any lab studies that have been ordered have been reviewed, and results considered in the medical decision making process. - Radiology CXR Radiology Interpretation Completed By: Radiologist Summary of Radiographic Findings: No active cardiopulmonary disease is noted. ED Provider has reviewed this report. - EKG 1110 Cardiac Rate: NL - 80 BPM EKG Rhythm: Sinus Rhythm Summary of EKG Findings: Motion artifact, no STEMI. ED Physician has reviewed and interpreted this EKG. Re-Evaluation - Re-Evaluation First Eval Re-Evaluation Time: 13:15 Comment: Chest tightness has mildly improved. She says her wheezing is worse. Second Eval Re-Evaluation Time: 14:15 Change: Improved Comment: Chest pressure has improved to 1/10 following nebulizer treatment. Disposition - Course Course Of Treatment: This patient is a 64 year old female with a Hx of COPD presenting to [facility] with a chief complaint of SOB since 3 days ago. She states this feels like a COPD flare up and it has gotten worse since this morning. She reports chest pain. She was here with vomiting and diarrhea 3/ which she states which has resolved. She states there is clear nasal discharge which she states is normal for her. She states she has her typical cough, and is not productive. She states her chest pain started as a sharp pain last night in the mid sternum. She states she is unsure if anything makes it better or worse and states it is a constant pain. She denies any radiation of the pain. She states she is on home O2 2L. She is still on Coumadin. 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 She rates the pain in her chest an 8/10 in severity. She denies known contact with sick persons. She states she took 2 breathing treatments of albuterol at home and one in the ambulance. Reviewed the medical record from ER visit November 22, 2019. Physical exam reveals typical cough which is productive of yellow sputum. Diminished breath sounds. She has a known HX of CAD. She does not recall what her last IA felt like. These symptoms of constant chest pain since last night may be atypical for ACS. EKG and CXR were unremarkable. Patient received Decadron, Aspirin, and Albuterol treatment. Blood work significant for slight anemia with hemoglobin 1.6 and hematocrit 32, INR 1.42, PTT 40.3, glucose 106, total protein 5.8. Influenza A and B are negative. COVID-19 tests ordered, pending results. Patient given Duoneb treatment with improvement in symptoms. Signs and symptoms are most consistent with previous COPD exacerbation episodes. She is being tested for COVID-19 and will isolate for 14 days. All results discussed with patient. She is safe for discharge with PCP follow up in 2-3 days. Rx for Doxycycline, Prednisone. Patient agreeable with plan. - Diagnoses Provider Diagnoses: COPD exacerbation Discharge ED - Sign-Out/Discharge Documenting (check all that apply): Patient Departure - Patient will be discharged home. - Discharge Plan Condition: Stable Disposition: HOME Prescriptions: DOXYcycline CAP(*) [DOXYcycline 100MG CAP(*)] 100 mg PO BID #10 cap predniSONE 20 mg TAB [Deltasone 20 MG TAB*] 40 mg PO DAILY #8 tab Patient Education Materials: COPD (Chronic Obstructive Pulmonary Disease) (DC) Referrals: Tom Schrader MD [Primary Care Provider] - 3 Days Additional Instructions: Please take medication as prescribed. Please self-quarantine until notified by the Health Department that you may be released. The Health Department will call you with results. Follow up with your primary care provider in 2-3 days. Return to the emergency department for any new or worsening symptoms. - Attestation Statements Document Initiated by Scribe: Yes Documenting Scribe: Sonya Kirby Provider For Whom [facility] is Documenting (Include Credential): Tab Denney MD Scribe Attestation: Ney Laboy Natalie George, scribed for Tab Denney MD on 12/01/19 at 1636. Status of Scribe Document: Ready
[2019-12-01 11:13] LABS: ABS Basophils 0.1 10^3/ul (0-0.2); ABS Eosinophils 0.2 10^3/ul (0-0.6); ABS Lymphocytes 0.9 10^3/ul (1.0-4.8); ABS Monocytes 0.3 10^3/ul (0-0.8); ABS Neutrophils 3.3 10^3/ul (1.5-7.7); Eosinophil % 4.2 %; Hematocrit 32 % (35-47); Hemoglobin 10.6 g/dL (12.0-16.0); Lymphocyte % 19.3 %; Mean Corpuscular HGB Conc 33 g/dL (31-36); Mean Corpuscular Hemoglobin 29 pg (27-31); Mean Corpuscular Volume 87 fL (80-97); Mean Platelet Volume 8.4 fL (7.4-10.4); Platelet Count 164 10^3/uL (150-450); Red Cell Distribution Width 17 % (10-15); White Blood Count 4.8 10^3/uL (3.5-10.8)
[2019-12-01 11:21] LABS: Activated Partial Thrombo Time 40.3 seconds (26.0-38.0); INR 1.42 (0.82-1.09)
[2019-12-01 11:32] LABS: Influenza A Molecular Negative (Negative); Influenza B Molecular Negative (Negative)
[2019-12-01] MEDS ORDERED: Dexamethasone IV* 4 MG/ML 1 ML (4 MG) IV SLOW PU ONE (11:33)
[2019-12-01] MEDS ORDERED: Aspirin 81 mg CHEW TAB* 81 MG TAB.CHEW PO ONE (11:33)
[2019-12-01 11:35] LABS: ALT 12 U/L (7-52); Albumin 3.5 g/dL (3.2-5.2); Albumin/Globulin Ratio 1.5 (1-3); Alkaline Phosphatase 83 U/L (34-104); BUN/Creatinine Ratio 12.1 (8-20); Blood Urea Nitrogen 11 mg/dL (6-24); CO2 Carbon Dioxide 30 mmol/L (22-32); Calcium 9.1 mg/dL (8.6-10.3); Chloride 106 mmol/L (101-111); EGFR African American 75.8 (>60); EGFR Non-African American 62.6 (>60); Globulin 2.3 g/dL (2-4); Glucose 106 mg/dL (70-100); Sodium 138 mmol/L (135-145); Total Protein 5.8 g/dL (6.4-8.9)
[2019-12-01] MEDS ORDERED: Albuterol HFA INHALER* 8 gm MDI INH ONE (11:54)
[2019-12-01 11:59] LABS: Anion Gap 2 mmol/L (2-11)
[2019-12-01] MEDS ORDERED: Albuterol/Ipratropium NEB.SOL* Albuterol 2.5 MG/Ipratropium 0.5 MG 3 ML INH ONE (13:16)
[2019-12-01 13:44] LABS: Potassium Redraw 4.9 mmol/L (3.5-5.0)
[2019-12-01 16:10] LABS: Potassium Redraw 4.8 mmol/L (3.5-5.0)
[2019-12-01 18:18] VITALS: BP 125/62
== END 2019-12-01 18:17 | disposition home or self-care (01) ==
LOC: ED 10:38
DX: J44.1 Chronic obstructive pulmonary disease with (acute) exacerbation (principal); D64.9 Anemia, unspecified; I25.10 Atherosclerotic heart disease of native coronary artery without angina pectoris; E78.00 Pure hypercholesterolemia, unspecified; I10 Essential (primary) hypertension; I73.9 Peripheral vascular disease, unspecified; K21.9 Gastro-esophageal reflux disease without esophagitis; F41.9 Anxiety disorder, unspecified; F20.9 Schizophrenia, unspecified; F31.9 Bipolar disorder, unspecified; F17.210 Nicotine dependence, cigarettes, uncomplicated; Z86.718 Personal history of other venous thrombosis and embolism; Z99.81 Dependence on supplemental oxygen; Z90.49 Acquired absence of other specified parts of digestive tract; Z90.89 Acquired absence of other organs; Z79.01 Long term (current) use of anticoagulants; Z79.82 Long term (current) use of aspirin; Z79.899 Other long term (current) drug therapy; Z88.0 Allergy status to penicillin; Z88.1 Allergy status to other antibiotic agents; Z88.8 Allergy status to other drugs, medicaments and biological substances
CPT/HCPCS: 36415; 71045; 80053; 83605; 84484; 85025; 85610; 85730; 87040; 93005; 96374; 99284; A9270-GY; J1100; U0002

== ENCOUNTER 2020-02-05 14:39 | Observation (INO) ==
[2020-02-05] MEDS ORDERED: Albuterol HFA INHALER 8 gm MDI INH ONE (15:53)
[2020-02-05 15:55] LABS: ABS Eosinophils 0.1 10^3/ul (0-0.6); ABS Lymphocytes 0.9 10^3/ul (1.0-4.8); ABS Monocytes 0.6 10^3/ul (0-0.8); Eosinophil % 1.4 %; Hematocrit 41 % (35-47); Hemoglobin 13.7 g/dL (12.0-16.0); Lymphocyte % 11.7 %; Mean Corpuscular HGB Conc 33 g/dL (31-36); Mean Corpuscular Hemoglobin 29 pg (27-31); Mean Corpuscular Volume 86 fL (80-97); Mean Platelet Volume 8.9 fL (7.4-10.4); Nucleated Red Blood Cells % 0.1; Platelet Count 164 10^3/uL (150-450); Red Cell Distribution Width 15 % (10-15); White Blood Count 7.4 10^3/uL (3.5-10.8)
[2020-02-05 16:33] LABS: ALT 8 U/L (7-52); AST 13 U/L (13-39); Albumin 4.4 g/dL (3.2-5.2); Albumin/Globulin Ratio 1.9 (1-3); Alkaline Phosphatase 135 U/L (34-104); Anion Gap 6 mmol/L (2-11); BUN/Creatinine Ratio 25.5 (8-20); Blood Urea Nitrogen 28 mg/dL (6-24); CO2 Carbon Dioxide 29 mmol/L (22-32); Calcium 10.3 mg/dL (8.6-10.3); Chloride 105 mmol/L (101-111); EGFR African American 60.9 (>60); EGFR Non-African American 50.3 (>60); Globulin 2.3 g/dL (2-4); Glucose 94 mg/dL (70-100); Potassium 4.1 mmol/L (3.5-5.0); Sodium 140 mmol/L (135-145); Total Protein 6.7 g/dL (6.4-8.9)
[2020-02-05 16:38] LABS: Alcohol, S < 10 mg/dL (<10)
[2020-02-05 16:56] LABS: Urine Appearance Cloudy; Urine Bilirubin Negative (Negative); Urine Blood Negative (Negative); Urine Color Yellow; Urine Glucose Negative (Negative); Urine Ketones Trace (Negative); Urine Nitrite Positive (Negative); Urine Protein 1+(30 mg/dL) (Negative); Urine Specific Gravity 1.018 (1.010-1.030); Urine Urobilinogen Negative (Negative)
[2020-02-05 17:00] LABS: Urine Bacteria 1+ (Absent); Urine Red Blood Cell Trace(0-2/hpf) (Absent); Urine White Blood Cell Trace(0-5/hpf) (Absent)
[2020-02-05] MEDS ORDERED: Thiamine 100 MG/ML 2 ml VIAL (200 mg) IV ONE (17:13)
[2020-02-05 17:17] LABS: Urine Benzodiazepine Screen None Detected (None Detect); Urine Opiates Screen None Detected (None Detect)
[2020-02-05 17:27] LABS: Lithium 1.58 mmol/L (0.6-1.2)
[2020-02-05 17:32] LABS: Activated Partial Thrombo Time 38.9 seconds (26.0-38.0); INR 1.95 (0.82-1.09)
[2020-02-05] MEDS ORDERED: Albuterol/Ipratropium NEB.SOL (2.5/0.5 MG) 3 ML NEB.SOLN INH PRN (18:25)
[2020-02-05] MEDS: WARFARIN 3 MG PO SCH (20:14)
[2020-02-05] MEDS: Thiamine IV 100 MG in NS 0.9% 50 ML Q24H IV SCH (20:16)
[2020-02-05] MEDS: cefTRIAXone ADVAN VIAL 1 GM in NS 0.9% 50 ML 50 ML IVPB SCH (21:13)
[2020-02-05] MEDS: Triamcinolone 0.5% OINT 1 TUBE TOPICAL SCH (22:19)
[2020-02-06 07:30] LABS: BUN/Creatinine Ratio 26.3 (8-20); Calcium 9.7 mg/dL (8.6-10.3); EGFR African American 68.8 (>60); EGFR Non-African American 56.8 (>60); Potassium 3.7 mmol/L (3.5-5.0)
[2020-02-06 07:33] LABS: Lithium 1.35 mmol/L (0.6-1.2)
[2020-02-06] MEDS: Tiotropium Brom/Olodaterol MDI INH SCH (08:30)
[2020-02-06] MEDS: Isosorbide Mononit ER 30mg TAB PO SCH (09:17)
[2020-02-06] MEDS: Fluticasone NASAL SPRAY 50MCG 16 gm SPRAY BTL BOTH NARES SCH (09:19)
[2020-02-06] MEDS: Triamcinolone 0.5% OINT 1 TUBE TOPICAL SCH ×2 (09:22→20:38)
[2020-02-06] MEDS: WARFARIN 3 MG PO SCH (09:42)
[2020-02-06] MEDS ORDERED: WARFARIN 3 MG PO SCH (17:00)
[2020-02-06] MEDS: cefTRIAXone ADVAN VIAL 1 GM in NS 0.9% 50 ML 50 ML IVPB SCH (18:15)
[2020-02-06] MEDS: Thiamine IV 100 MG in NS 0.9% 50 ML Q24H IV SCH (20:04)
[2020-02-06] MEDS ORDERED: diPHENhydraMINE 25 mg TAB PO ONE (22:37)
[2020-02-07] MEDS: Fluticasone NASAL SPRAY 50MCG 16 gm SPRAY BTL BOTH NARES SCH (07:24)
[2020-02-07] MEDS: Isosorbide Mononit ER 30mg TAB PO SCH (07:24)
[2020-02-07] MEDS: Triamcinolone 0.5% OINT 1 TUBE TOPICAL SCH (07:25)
[2020-02-07 07:31] LABS: INR 1.72 (0.82-1.09)
[2020-02-07] MEDS: Tiotropium Brom/Olodaterol MDI INH SCH (07:50)
[2020-02-07] MEDS ORDERED: NS 0.9% 1000 ml BAG 1,000 ML IV ONE (08:29)
[2020-02-07 14:34] LABS: BUN/Creatinine Ratio 23.9 (8-20); Calcium 8.8 mg/dL (8.6-10.3); EGFR African American 61.5 (>60); EGFR Non-African American 50.9 (>60); Potassium 4.1 mmol/L (3.5-5.0)
[2020-02-07 15:08] LABS: Lithium 0.79 mmol/L (0.6-1.2)
[2020-02-07 16:03] VITALS: BP 155/58
== END 2020-02-07 16:00 | disposition home or self-care (01) ==
LOC: MED 14:39 → ED 14:39 → MED 19:50
PROVIDERS: ADMIT Internal Medicine; ATTEND Internal Medicine

== ENCOUNTER 2021-01-01 15:27 | Inpatient (IN) ==
[2021-01-01] MEDS ORDERED: Ondansetron 4 mg VIAL 2 MG/ML 2 ml VIAL IV ONE (15:45)
[2021-01-01] MEDS ORDERED: NS 0.9% 1000 ml BAG 1,000 ML IV ONE (15:45)
[2021-01-01] MEDS ORDERED: Albuterol 2.5mg/3 ml (0.083%) NEB.SOLN INH ONE (15:45)
[2021-01-01 17:06] LABS: ABS Eosinophils 0.2 10^3/ul (0-0.6); ABS Lymphocytes 1.4 10^3/ul (1.0-4.8); ABS Monocytes 0.5 10^3/ul (0-0.8); ABS Neutrophils 4.7 10^3/ul (1.5-7.7); Eosinophil % 3.2 %; Hematocrit 42 % (35-47); Hemoglobin 13.8 g/dL (12.0-16.0); Lymphocyte % 20.1 %; Mean Corpuscular HGB Conc 33 g/dL (31-36); Mean Corpuscular Hemoglobin 30 pg (27-31); Mean Corpuscular Volume 90 fL (80-97); Mean Platelet Volume 8.6 fL (7.4-10.4); Platelet Count 154 10^3/uL (150-450); Red Blood Count 4.68 10^6 /uL (3.70-4.87); Red Cell Distribution Width 15 % (10-15); White Blood Count 6.8 10^3/uL (3.5-10.8)
[2021-01-01 17:22] LABS: Albumin 4.1 g/dL (3.2-5.2); Albumin/Globulin Ratio 1.6 (1-3); C Reactive Protein 1.21 mg/L (<8.01); Calcium 10.4 mg/dL (8.6-10.3); EGFR African American 77.5 (>60); EGFR Non-African American 64.1 (>60); Globulin 2.5 g/dL (2-4); Magnesium 1.6 mg/dL (1.9-2.7); Potassium 4.2 mmol/L (3.5-5.0); Total Bilirubin 0.4 mg/dL (0.2-1.0); Total Protein 6.6 g/dL (6.4-8.9)
[2021-01-01] MEDS ORDERED: Magnesium Sulfate 2 gm BAG 2 GM/50 ML BAG IVPB ONE (17:43)
[2021-01-01] MEDS ORDERED: Ondansetron 4 mg VIAL 2 MG/ML 2 ml VIAL IV PRN (19:39)
[2021-01-01 20:02] LABS: Influenza A Molecular Negative (Negative); Influenza B Molecular Negative (Negative)
[2021-01-01 20:45] LABS: Urine Appearance Clear; Urine Bilirubin Negative (Negative); Urine Blood Negative (Negative); Urine Color Yellow; Urine Glucose Negative (Negative); Urine Ketones Negative (Negative); Urine Nitrite Negative (Negative); Urine Protein Negative (Negative); Urine Specific Gravity 1.004 (1.002-1.030); Urine Urobilinogen Negative (Negative)
[2021-01-01] MEDS: Albuterol HFA INHALER 8 gm MDI INH SCH (20:50)
[2021-01-01 20:52] LABS: INR 2.37 (0.82-1.09)
[2021-01-01] MEDS ORDERED: Mometasone/Formoter 200/5 MDI INH SCH (21:00)
[2021-01-02] MEDS: Albuterol HFA INHALER 8 gm MDI INH SCH (01:56)
[2021-01-02] MEDS ORDERED: Albuterol 2.5mg/3 ml (0.083%) NEB.SOLN INH PRN (04:11)
[2021-01-02] MEDS: Albuterol/Ipratropium NEB.SOL (2.5/0.5 MG) 3 ML NEB.SOLN INH SCH ×6 (04:33→23:10)
[2021-01-02] MEDS: Tiotropium Brom/Olodaterol MDI INH SCH (07:08)
[2021-01-02 08:36] LABS: ABS Eosinophils 0.2 10^3/ul (0-0.6); ABS Lymphocytes 0.9 10^3/ul (1.0-4.8); ABS Monocytes 0.3 10^3/ul (0-0.8); ABS Neutrophils 3.1 10^3/ul (1.5-7.7); Eosinophil % 3.6 %; Hematocrit 39 % (35-47); Hemoglobin 12.8 g/dL (12.0-16.0); Lymphocyte % 19.7 %; Mean Corpuscular HGB Conc 32 g/dL (31-36); Mean Corpuscular Hemoglobin 30 pg (27-31); Mean Corpuscular Volume 92 fL (80-97); Mean Platelet Volume 8.6 fL (7.4-10.4); Nucleated Red Blood Cells % 0.1; Platelet Count 120 10^3/uL (150-450); Red Blood Count 4.31 10^6 /uL (3.70-4.87); Red Cell Distribution Width 15 % (10-15); White Blood Count 4.4 10^3/uL (3.5-10.8)
[2021-01-02 08:57] LABS: Calcium 9.7 mg/dL (8.6-10.3); EGFR African American 76.5 (>60); EGFR Non-African American 63.2 (>60); Potassium 4.7 mmol/L (3.5-5.0)
[2021-01-03] MEDS: Albuterol/Ipratropium NEB.SOL (2.5/0.5 MG) 3 ML NEB.SOLN INH SCH ×5 (03:20→19:57)
[2021-01-03] MEDS: Tiotropium Brom/Olodaterol MDI INH SCH (07:08)
[2021-01-03] MEDS ORDERED: Isosorbide Mononit ER 30mg TAB PO SCH (09:00)
[2021-01-03 12:11] VITALS: BP 94/52
[2021-01-03 12:28] LABS: INR 1.49 (0.82-1.09)
[2021-01-03] MEDS ORDERED: Warfarin DAILY REMINDER **NOTE FOLLOW UP SCH (17:00)
[2021-01-04] MEDS: Albuterol/Ipratropium NEB.SOL (2.5/0.5 MG) 3 ML NEB.SOLN INH SCH (01:18)
[2021-01-04] MEDS ORDERED: Albuterol/Ipratropium NEB.SOL (2.5/0.5 MG) 3 ML NEB.SOLN INH PRN (01:22)
== END 2021-01-03 19:30 | disposition home or self-care (01) | DRG 191 ==
LOC: ED 15:27 → MED 15:27
PROVIDERS: ADMIT Internal Medicine Interventional Cardiology; ATTEND Internal Medicine

== ENCOUNTER 2021-04-11 08:41 | Inpatient (IN) ==
[2021-04-11] MEDS ORDERED: methylPREDNISolone 125 mg 2 ML VIAL IV ONE (09:04)
[2021-04-11] MEDS ORDERED: Albuterol/Ipratropium NEB.SOL (2.5/0.5 MG) 3 ML NEB.SOLN INH ONE (09:04)
[2021-04-11] MEDS ORDERED: Albuterol (2.5 MG) 0.5 % CONC 0.5 ML NEB.SOLN INH ONE (09:04)
[2021-04-11] MEDS ORDERED: Albuterol HFA INHALER 8 gm MDI INH ONE (09:17)
[2021-04-11 09:25] LABS: ABS Eosinophils 0.2 10^3/ul (0-0.6); ABS Lymphocytes 0.5 10^3/ul (1.0-4.8); ABS Monocytes 0.4 10^3/ul (0-0.8); ABS Neutrophils 4.7 10^3/ul (1.5-7.7); Eosinophil % 2.9 %; Hematocrit 42 % (35-47); Hemoglobin 13.9 g/dL (12.0-16.0); Lymphocyte % 8.8 %; Mean Corpuscular HGB Conc 33 g/dL (31-36); Mean Corpuscular Hemoglobin 30 pg (27-31); Mean Corpuscular Volume 89 fL (80-97); Mean Platelet Volume 8.9 fL (7.4-10.4); Platelet Count 142 10^3/uL (150-450); Red Cell Distribution Width 15 % (10-15); White Blood Count 5.9 10^3/uL (3.5-10.8)
[2021-04-11 09:31] LABS: INR 2.26 (0.86-1.15)
[2021-04-11 09:46] LABS: Rapid COVID-19 Molecular Undetected (Undetected)
[2021-04-11 09:51] LABS: Albumin 4.1 g/dL (3.2-5.2); Albumin/Globulin Ratio 1.4 (1-3); Calcium 10.1 mg/dL (8.6-10.3); EGFR Non-African American 58.7 (>60); Globulin 2.9 g/dL (2-4); Potassium 4.3 mmol/L (3.5-5.0); Total Bilirubin 0.4 mg/dL (0.2-1.0)
[2021-04-11] MEDS ORDERED: Levofloxacin 750 MG IVPREMIX 750 MG/150 ML BAG IVPB ONE (10:44)
[2021-04-11] MEDS ORDERED: Al Hydrox/Mg Hydrox/Simet LIQ 30 ML UDC PO PRN (13:52)
[2021-04-11] MEDS ORDERED: NS 0.9% 1000 ml BAG 1,000 ML IV SCH (14:00)
[2021-04-11 14:24] LABS: C Reactive Protein 71.13 mg/L (<8.01)
[2021-04-11] MEDS: methylPREDNISolone SOD 40 mg/ml 1 ml VIAL IV SCH (18:17)
[2021-04-11] MEDS: Albuterol HFA INHALER 8 gm MDI INH PRN (21:21)
[2021-04-12] MEDS: methylPREDNISolone SOD 40 mg/ml 1 ml VIAL IV SCH ×3 (01:05→17:20)
[2021-04-12] MEDS: Albuterol HFA INHALER 8 gm MDI INH PRN (04:06)
[2021-04-12 06:09] LABS: ABS Lymphocytes 0.3 10^3/ul (1.0-4.8); ABS Monocytes 0.1 10^3/ul (0-0.8); ABS Neutrophils 3.1 10^3/ul (1.5-7.7); Hematocrit 37 % (35-47); Hemoglobin 12.5 g/dL (12.0-16.0); Lymphocyte % 7.8 %; Mean Corpuscular HGB Conc 34 g/dL (31-36); Mean Corpuscular Hemoglobin 29 pg (27-31); Mean Corpuscular Volume 87 fL (80-97); Mean Platelet Volume 8.6 fL (7.4-10.4); Nucleated Red Blood Cells % 0.2; Platelet Count 133 10^3/uL (150-450); Red Blood Count 4.26 10^6 /uL (3.70-4.87); Red Cell Distribution Width 14 % (10-15); White Blood Count 3.5 10^3/uL (3.5-10.8)
[2021-04-12 06:22] LABS: INR 2.61 (0.86-1.15)
[2021-04-12 06:26] LABS: EGFR African American 66.2 (>60); EGFR Non-African American 54.7 (>60); Potassium 4.6 mmol/L (3.5-5.0)
[2021-04-12] MEDS ORDERED: Albuterol/Ipratropium NEB.SOL (2.5/0.5 MG) 3 ML NEB.SOLN INH PRN (07:26)
[2021-04-12] MEDS: Albuterol/Ipratropium NEB.SOL (2.5/0.5 MG) 3 ML NEB.SOLN INH SCH ×3 (08:56→19:19)
[2021-04-12] MEDS ORDERED: Tiotropium Brom/Olodaterol MDI INH SCH (09:00)
[2021-04-12] MEDS ORDERED: Isosorbide Mononit ER 30mg TAB PO SCH (09:00)
[2021-04-12] MEDS ORDERED: Levofloxacin 500 MG IVPREMIX 500 MG/100 ML BAG IVPB SCH (11:30)
[2021-04-13] MEDS: methylPREDNISolone SOD 40 mg/ml 1 ml VIAL IV SCH (00:28)
[2021-04-13] MEDS: Albuterol/Ipratropium NEB.SOL (2.5/0.5 MG) 3 ML NEB.SOLN INH SCH ×3 (03:47→13:40)
[2021-04-13 05:14] LABS: INR 2.89 (0.86-1.15)
[2021-04-13 11:39] VITALS: BP 132/45
== END 2021-04-13 14:15 | disposition home or self-care (01) | DRG 871 ==
LOC: ED 08:41 → MEDTELE 13:52
PROVIDERS: ADMIT Internal Medicine; ATTEND Internal Medicine

== ENCOUNTER 2022-02-14 01:40 | Inpatient (IN) ==
[2022-02-14 02:51] LABS: Hematocrit 38 % (35-47); Mean Corpuscular HGB Conc 32 g/dL (31-36); Mean Corpuscular Hemoglobin 28 pg (27-31); Mean Corpuscular Volume 88 fL (80-97); Mean Platelet Volume 8.8 fL (7.4-10.4); Platelet Count 117 10^3/uL (150-450); Red Blood Count 4.26 10^6 /uL (3.70-4.87); Red Cell Distribution Width 15 % (10-15); White Blood Count 8.6 10^3/uL (3.5-10.8)
[2022-02-14 03:01] LABS: Activated Partial Thrombo Time 42.9 seconds (26.0-38.0); INR 3.22 (0.86-1.15)
[2022-02-14 03:35] LABS: Albumin/Globulin Ratio 1.8 (1-3); Calcium 9.5 mg/dL (8.6-10.3); Globulin 2.2 g/dL (2-4); Magnesium 1.5 mg/dL (1.9-2.7); Potassium 4.2 mmol/L (3.5-5.0); Total Bilirubin 0.7 mg/dL (0.2-1.0); Total Protein 6.2 g/dL (6.4-8.9)
[2022-02-14] MEDS ORDERED: Iohexol 350 (CONTRAST) 500 ML MDV IV ONE (03:36)
[2022-02-14 03:50] LABS: TSH Ultra Thyroid Stim Horm 2.06 mcIU/mL (0.34-5.60)
[2022-02-14 03:52] LABS: Free T4 0.88 ng/dL (0.61-1.12)
[2022-02-14 03:56] LABS: ABS Eosinophils 0.1 10^3/ul (0-0.6); ABS Lymphocytes 0.5 10^3/ul (1.0-4.8); ABS Monocytes 0.6 10^3/ul (0-0.8); ABS Neutrophils 7.4 10^3/ul (1.5-7.7); Eosinophil % 1.3 %; Lymphocyte % 6.1 %
[2022-02-14 04:16] LABS: High Sensitivity Troponin 1 Hr 7 pg/mL (<15)
[2022-02-14] MEDS ORDERED: methylPREDNISolone SOD SUCC 125 mg 2 ML VIAL IV ONE (14:20)
[2022-02-14] MEDS ORDERED: Albuterol 2.5mg/3 ml (0.083%) NEB.SOLN INH PRN (14:20)
[2022-02-14] MEDS ORDERED: Albuterol/Ipratropium NEB.SOL (2.5/0.5 MG) 3 ML NEB.SOLN INH ONE (14:20)
[2022-02-14 15:13] LABS: PCO2 Arterial 55 mmHg (35-45); PO2 Arterial 80 mmHg (80-100)
[2022-02-14] MEDS ORDERED: Ondansetron 4 mg VIAL 2 MG/ML 2 ml VIAL IV PRN (17:11)
[2022-02-14] MEDS ORDERED: Albuterol HFA INHALER 8 gm MDI INH PRN (17:17)
[2022-02-14] MEDS ORDERED: Enoxaparin 40 MG/0.4 ML SYR SUBCUT SCH (18:00)
[2022-02-14] MEDS: Albuterol/Ipratropium NEB.SOL (2.5/0.5 MG) 3 ML NEB.SOLN INH SCH (20:46)
[2022-02-14] MEDS ORDERED: Saline NASAL SPRAY 0.65% BTL BOTH NARES PRN (22:11)
[2022-02-14] MEDS ORDERED: Magnesium Sulf 4 GM/100 ML IV 4,000 MG/100 ML BAG IVPB ONE (22:34)
[2022-02-14] MEDS ORDERED: Al Hydrox/Mg Hydrox/Simet LIQ 30 ML UDC PO PRN (22:45)
[2022-02-14] MEDS: Isosorbide Mononit ER 30mg TAB PO SCH (23:18)
[2022-02-14] MEDS: NF: Mirabegron 25 mg ER TAB (NF) PO SCH (23:33)
[2022-02-15 03:07] LABS: Urine Appearance Clear; Urine Bilirubin Negative (Negative); Urine Blood 1+ (Negative); Urine Color Yellow; Urine Glucose Negative (Negative); Urine Ketones Trace (Negative); Urine Nitrite Negative (Negative); Urine Protein 1+(30 mg/dL) (Negative); Urine Specific Gravity 1.018 (1.002-1.030); Urine Urobilinogen Negative (Negative)
[2022-02-15 03:08] LABS: Urine Bacteria Absent (Absent); Urine Red Blood Cell Trace(0-2/hpf) (Absent); Urine Squamous Epithelial Cell Present (Absent); Urine White Blood Cell Trace(0-5/hpf) (Absent)
[2022-02-15 06:00] LABS: ABS Lymphocytes 0.2 10^3/ul (1.0-4.8); ABS Monocytes 0.3 10^3/ul (0-0.8); ABS Neutrophils 4.9 10^3/ul (1.5-7.7); Hematocrit 36 % (35-47); Hemoglobin 11.8 g/dL (12.0-16.0); Lymphocyte % 4.3 %; Mean Corpuscular HGB Conc 33 g/dL (31-36); Mean Corpuscular Hemoglobin 28 pg (27-31); Mean Corpuscular Volume 86 fL (80-97); Mean Platelet Volume 8.9 fL (7.4-10.4); Platelet Count 129 10^3/uL (150-450); Red Blood Count 4.18 10^6 /uL (3.70-4.87); Red Cell Distribution Width 15 % (10-15); White Blood Count 5.5 10^3/uL (3.5-10.8)
[2022-02-15 06:08] LABS: INR 4.81 (0.86-1.15)
[2022-02-15 06:21] LABS: Anion Gap 4 mmol/L (2-11); Blood Urea Nitrogen 28 mg/dL (6-24); CO2 Carbon Dioxide 30 mmol/L (22-32); Calcium 10.1 mg/dL (8.6-10.3); Chloride 104 mmol/L (101-111); Glucose 173 mg/dL (70-100); Potassium 4.6 mmol/L (3.5-5.0); Sodium 138 mmol/L (135-145); eGFR CKD-EPI 54.9 (>60)
[2022-02-15] MEDS ORDERED: Warfarin per PHARMACY **NOTE FOLLOW UP SCH (08:00)
[2022-02-15 08:43] LABS: Magnesium 3.3 mg/dL (1.9-2.7)
[2022-02-15] MEDS ORDERED: cefTRIAXone 1 gm/50 mL D5W 1 GM/50 ML BAG IV SCH (09:00)
[2022-02-15] MEDS: Albuterol/Ipratropium NEB.SOL (2.5/0.5 MG) 3 ML NEB.SOLN INH SCH ×2 (09:31→11:52)
[2022-02-15] MEDS: Solifenacin 5 mg TAB (NF) PO SCH (09:59)
[2022-02-15] MEDS: Isosorbide Mononit ER 30mg TAB PO SCH (09:59)
[2022-02-15] MEDS ORDERED: Lactated Ringers 1000 ml BAG 1,000 ML IV SCH (10:00)
[2022-02-15] MEDS ORDERED: Nicotine GUM 2MG FRUIT FLAVOR PO PRN (13:07)
[2022-02-15] MEDS: Lidocaine PATCH 5% PATCH TRANSDERM SCH (14:22)
[2022-02-15] MEDS: Nicotine PATCH 21 MG/24 HR PATCH TRANSDERM SCH (14:22)
[2022-02-15] MEDS ORDERED: Albuterol HFA INHALER 8 gm MDI INH PRN (14:51)
[2022-02-15] MEDS: Tiotropium Brom/Olodaterol MDI INH SCH ×2 (15:50→17:11)
[2022-02-15] MEDS ORDERED: Warfarin DAILY REMINDER **NOTE FOLLOW UP SCH (17:00)
[2022-02-15] MEDS ORDERED: Warfarin - No Order Today **NOTE FOLLOW UP ONE (17:00)
[2022-02-15] MEDS: NF: Mirabegron 25 mg ER TAB (NF) PO SCH (20:36)
[2022-02-15 21:29] LABS: % Iron Saturation 13 % (15-55); Iron 27 ug/dL (50-212); Total Iron Binding Capacity 206 mcg/dL (250-450); Transferrin 147 mg/dL (203-362); Unsaturated Iron Binding 179 ug/dL
[2022-02-15 21:51] LABS: Ferritin 294.6 ng/mL (11-307)
[2022-02-15 21:54] LABS: Folate 16.61 ng/mL (5.90-24.80)
[2022-02-15 21:55] LABS: Vitamin B12 > 1450 pg/mL (180-914)
[2022-02-16 05:54] LABS: Hematocrit 33 % (35-47); Hemoglobin 10.8 g/dL (12.0-16.0); Mean Corpuscular HGB Conc 33 g/dL (31-36); Mean Corpuscular Hemoglobin 28 pg (27-31); Mean Corpuscular Volume 86 fL (80-97); Mean Platelet Volume 8.6 fL (7.4-10.4); Platelet Count 133 10^3/uL (150-450); Red Blood Count 3.82 10^6 /uL (3.70-4.87); Red Cell Distribution Width 15 % (10-15); White Blood Count 4.5 10^3/uL (3.5-10.8)
[2022-02-16 06:02] LABS: INR 4.56 (0.86-1.15)
[2022-02-16 06:33] LABS: Calcium 9.8 mg/dL (8.6-10.3); Magnesium 2.1 mg/dL (1.9-2.7); eGFR CKD-EPI 34.7 (>60)
[2022-02-16 06:37] LABS: Potassium 5.1 mmol/L (3.5-5.0)
[2022-02-16] MEDS ORDERED: NS 0.9% 500 ml BAG 500 ML IV SCH (07:00)
[2022-02-16 07:58] LABS: Lithium 1.11 mmol/L (0.6-1.2)
[2022-02-16 08:46] LABS: Urine Appearance Clear; Urine Bilirubin Negative (Negative); Urine Blood Negative (Negative); Urine Color Colorless; Urine Glucose Negative (Negative); Urine Ketones Negative (Negative); Urine Nitrite Negative (Negative); Urine Protein Negative (Negative); Urine Specific Gravity 1.003 (1.002-1.030); Urine Urobilinogen Negative (Negative)
[2022-02-16] MEDS: Lidocaine PATCH 5% PATCH TRANSDERM SCH (08:49)
[2022-02-16] MEDS: Nicotine PATCH 21 MG/24 HR PATCH TRANSDERM SCH (08:49)
[2022-02-16] MEDS: Tiotropium Brom/Olodaterol MDI INH SCH (08:50)
[2022-02-16] MEDS: Solifenacin 5 mg TAB (NF) PO SCH (08:53)
[2022-02-16] MEDS: Isosorbide Mononit ER 30mg TAB PO SCH (08:55)
[2022-02-16 09:35] LABS: Urine Creatinine Concentration 15.46 mg/dL
[2022-02-16] MEDS ORDERED: Warfarin - No Order Today **NOTE FOLLOW UP ONE (17:00)
[2022-02-16] MEDS ORDERED: Warfarin DAILY REMINDER **NOTE FOLLOW UP SCH (17:00)
[2022-02-16] MEDS: NF: Mirabegron 25 mg ER TAB (NF) PO SCH (20:50)
[2022-02-17 06:00] LABS: INR 2.53 (0.86-1.15)
[2022-02-17 06:22] LABS: Calcium 9.7 mg/dL (8.6-10.3); Lithium 1.14 mmol/L (0.6-1.2); eGFR CKD-EPI 46.8 (>60)
[2022-02-17 06:25] LABS: Potassium 5.1 mmol/L (3.5-5.0)
[2022-02-17] MEDS: Lidocaine PATCH 5% PATCH TRANSDERM SCH (07:18)
[2022-02-17] MEDS: Isosorbide Mononit ER 30mg TAB PO SCH (08:13)
[2022-02-17] MEDS: Nicotine PATCH 21 MG/24 HR PATCH TRANSDERM SCH (08:14)
[2022-02-17] MEDS: Solifenacin 5 mg TAB (NF) PO SCH (08:14)
[2022-02-17] MEDS: Tiotropium Brom/Olodaterol MDI INH SCH (08:14)
[2022-02-17 11:39] VITALS: BP 131/64
[2022-02-18 14:38] LABS: Fungitell Qualitative Result Negative (Negative); Fungitell Quantitative Value <31 pg/mL (<60 pg/mL)
== END 2022-02-17 12:00 | disposition home health service (06) | DRG 193 ==
LOC: ED 01:40 → SUATTDRO 17:18 → EDHOLD 17:18 → SSU 19:17
PROVIDERS: ADMIT Internal Medicine; ATTEND Internal Medicine

== ENCOUNTER 2022-02-20 14:27 | Inpatient (IN) ==
[~2022-02-20 14:27] MED LIST changes: -Albuterol/Ipratropium NEB.SOL* Albuterol 2.5 MG/Ipratropium 0.5 MG 3 ML INH ONE; -Aspirin Low Dose CHEW TAB* 81 MG PO ONE; -Levofloxacin 750 MG IVPREMIX(* 750 MG/150 ML BAG IVPB ONE; -Levofloxacin TAB* 250 MG PO ONE; +Magnesium Sulfate 2 GM IV (Premix) IVPB ONE; -methylPREDNISolone 125 MG* 2 ML VIAL IV ONE; -predniSONE TAB* 20 MG PO ONE
[2022-02-20] MEDS ORDERED: NS 0.9% 1000 ml BAG 1,000 ML IV ONE (14:28)
[2022-02-20 15:11] LABS: PCO2 Arterial 65 mmHg (35-45); PO2 Arterial 84 mmHg (80-100)
[2022-02-20 16:16] LABS: Hematocrit 37 % (35-47); Hemoglobin 11.9 g/dL (12.0-16.0); Mean Corpuscular HGB Conc 32 g/dL (31-36); Mean Corpuscular Hemoglobin 28 pg (27-31); Mean Corpuscular Volume 87 fL (80-97); Mean Platelet Volume 7.7 fL (7.4-10.4); Platelet Count 177 10^3/uL (150-450); Red Cell Distribution Width 15 % (10-15); White Blood Count 8.1 10^3/uL (3.5-10.8)
[2022-02-20 16:40] LABS: Activated Partial Thrombo Time 35.4 seconds (26.0-38.0); INR 2.01 (0.86-1.15)
[2022-02-20 17:09] LABS: ABS Eosinophils 0.3 10^3/ul (0-0.6); ABS Lymphocytes 1.2 10^3/ul (1.0-4.8); ABS Monocytes 0.6 10^3/ul (0-0.8); Eosinophil % 3.8 %; Lymphocyte % 14.9 %
[2022-02-20 17:36] LABS: Albumin 3.5 g/dL (3.2-5.2); Albumin/Globulin Ratio 1.8 (1-3); Calcium 9.2 mg/dL (8.6-10.3); Globulin 1.9 g/dL (2-4); HDL Cholesterol 42.9 mg/dL; Magnesium 1.6 mg/dL (1.9-2.7); Potassium 4.6 mmol/L (3.5-5.0); Total Bilirubin 0.4 mg/dL (0.2-1.0); Total Protein 5.4 g/dL (6.4-8.9); eGFR CKD-EPI 55.5 (>60)
[2022-02-20] MEDS ORDERED: Magnesium Sulfate IV 3 GM in NS 0.9% 100 ml BAG 100 ML IVPB ONE (19:03)
[2022-02-20] MEDS ORDERED: Saline NASAL SPRAY 0.65% BTL BOTH NARES PRN (19:24)
[2022-02-20] MEDS ORDERED: Albuterol/Ipratropium NEB.SOL (2.5/0.5 MG) 3 ML NEB.SOLN INH PRN (19:24)
[2022-02-20] MEDS ORDERED: Albuterol HFA INHALER 8 gm MDI INH PRN (19:24)
[2022-02-20 20:01] LABS: High Sensitivity Troponin 1 Hr 7 pg/mL (<15)
[2022-02-20 20:06] LABS: Urine Appearance Cloudy; Urine Bilirubin Negative (Negative); Urine Blood 1+ (Negative); Urine Color Yellow; Urine Glucose Negative (Negative); Urine Ketones Negative (Negative); Urine Nitrite Negative (Negative); Urine Protein Negative (Negative); Urine Specific Gravity 1.008 (1.002-1.030); Urine Urobilinogen Negative (Negative)
[2022-02-20 20:09] LABS: Urine Bacteria 1+ (Absent); Urine Red Blood Cell Trace(0-2/hpf) (Absent); Urine Squamous Epithelial Cell Present (Absent); Urine White Blood Cell Trace(0-5/hpf) (Absent)
[2022-02-20] MEDS ORDERED: Furosemide 20 mg/2 ml IV VIAL IV SLOW PU ONE (20:12)
[2022-02-20] MEDS ORDERED: Magnesium Sulfate 1 GM IV 1 GM/100 ML BAG IV ONE (20:15)
[2022-02-20] MEDS ORDERED: Magnesium Sulfate 2 GM IV (Premix) IVPB ONE (21:00)
[2022-02-20] MEDS ORDERED: Warfarin per PHARMACY **NOTE FOLLOW UP SCH (21:00)
[2022-02-20] MEDS ORDERED: cefTRIAXone 1 gm/50 mL D5W 1 GM/50 ML BAG IV ONE (21:30)
[2022-02-20 21:36] LABS: Urine Benzodiazepine Screen None Detected (None Detect); Urine Cannabinoids Screen None Detected (None Detect); Urine Opiates Screen None Detected (None Detect)
[2022-02-21] MEDS ORDERED: Albuterol 2.5mg/3 ml (0.083%) NEB.SOLN INH PRN (00:47)
[2022-02-21 05:30] LABS: INR 1.92 (0.86-1.15)
[2022-02-21 06:17] LABS: Calcium 9.9 mg/dL (8.6-10.3); Magnesium 2.2 mg/dL (1.9-2.7); Potassium 4.6 mmol/L (3.5-5.0); eGFR CKD-EPI 63.7 (>60)
[2022-02-21] MEDS: Tiotropium Brom/Olodaterol MDI INH SCH (07:51)
[2022-02-21 08:43] LABS: C Reactive Protein 53.87 mg/L (<8.01)
[2022-02-21] MEDS: CMCS: Solifenacin 5 mg TAB (NF) PO SCH (09:06)
[2022-02-21] MEDS: Isosorbide Mononit ER 30mg TAB PO SCH (09:06)
[2022-02-21] MEDS ORDERED: Warfarin DAILY REMINDER **NOTE FOLLOW UP SCH (17:00)
[2022-02-21] MEDS ORDERED: cefTRIAXone 1 gm/50 mL D5W 1 GM/50 ML BAG IV SCH (21:00)
[2022-02-22 06:55] LABS: INR 2.31 (0.86-1.15)
[2022-02-22] MEDS: Tiotropium Brom/Olodaterol MDI INH SCH (07:05)
[2022-02-22 07:09] LABS: Calcium 9.1 mg/dL (8.6-10.3); Magnesium 1.6 mg/dL (1.9-2.7); Potassium 4.5 mmol/L (3.5-5.0); eGFR CKD-EPI 48.1 (>60)
[2022-02-22] MEDS ORDERED: Magnesium Sulf 4 GM/100 ML IV 4,000 MG/100 ML BAG IVPB ONE (07:41)
[2022-02-22] MEDS: CMCS: Solifenacin 5 mg TAB (NF) PO SCH (10:35)
[2022-02-22] MEDS: Isosorbide Mononit ER 30mg TAB PO SCH (10:36)
[2022-02-22 10:41] VITALS: BP 121/50
== END 2022-02-22 16:05 | disposition home or self-care (01) | DRG 191 ==
LOC: ED 14:27 → SUATTDRO 19:19 → EDHOLD 19:19 → MED 02-21 00:06
PROVIDERS: ADMIT Internal Medicine; ATTEND Internal Medicine

== ENCOUNTER 2022-07-01 11:27 | Inpatient (IN) ==
[2022-07-01] MEDS ORDERED: Ondansetron 4 mg VIAL 2 MG/ML 2 ml VIAL ONE (11:35)
[2022-07-01] MEDS ORDERED: Albuterol/Ipratropium NEB.SOL (2.5/0.5 MG) 3 ML NEB.SOLN INH ONE (11:38)
[2022-07-01] MEDS ORDERED: Lactated Ringers 1000 ml BAG 1,000 ML IV ONE (11:43)
[2022-07-01] MEDS ORDERED: Albuterol HFA INHALER 8 gm MDI INH ONE ×2 (11:49→12:12)
[2022-07-01] MEDS ORDERED: Ondansetron 4 mg VIAL 2 MG/ML 2 ml VIAL IV ONE (11:49)
[2022-07-01 11:55] LABS: ABS Lymphocytes 0.6 10^3/ul (1.0-4.8); ABS Monocytes 0.7 10^3/ul (0-0.8); ABS Neutrophils 6.2 10^3/ul (1.5-7.7); Eosinophil % 0.6 %; Hematocrit 41 % (35-47); Hemoglobin 13.2 g/dL (12.0-16.0); Lymphocyte % 8.4 %; Mean Corpuscular HGB Conc 32 g/dL (31-36); Mean Corpuscular Hemoglobin 29 pg (27-31); Mean Corpuscular Volume 89 fL (80-97); Mean Platelet Volume 9.1 fL (7.4-10.4); Nucleated Red Blood Cells % 0.1; Platelet Count 173 10^3/uL (150-450); Red Blood Count 4.61 10^6 /uL (3.70-4.87); Red Cell Distribution Width 15 % (10-15); White Blood Count 7.6 10^3/uL (3.5-10.8)
[2022-07-01 12:01] LABS: INR 2.43 (0.89-1.11)
[2022-07-01 12:51] LABS: ALT 9 U/L (7-52); Albumin 4.2 g/dL (3.2-5.2); Albumin/Globulin Ratio 1.4 (1-3); Alkaline Phosphatase 97 U/L (35-149); Blood Urea Nitrogen 21 mg/dL (6-24); CO2 Carbon Dioxide 31 mmol/L (22-32); Chloride 104 mmol/L (101-111); Globulin 2.9 g/dL (2-4); Glucose 98 mg/dL (70-100); Lithium 1.38 mmol/L (0.6-1.2); Sodium 141 mmol/L (135-145); Total Protein 7.1 g/dL (6.4-8.9); eGFR CKD-EPI 49.1 (>60)
[2022-07-01 13:03] LABS: Anion Gap 6 mmol/L (2-11)
[2022-07-01] MEDS ORDERED: Metoclopramide 5 MG/ML VIAL (10 mg) IV SLOW PU ONE (13:32)
[2022-07-01 14:26] LABS: Urine Appearance Cloudy; Urine Bilirubin Negative (Negative); Urine Blood 1+ (Negative); Urine Color Yellow; Urine Glucose Negative (Negative); Urine Ketones Trace (Negative); Urine Nitrite Negative (Negative); Urine Protein 2+(100 mg/dL) (Negative); Urine Specific Gravity 1.014 (1.002-1.030); Urine Urobilinogen Negative (Negative)
[2022-07-01 14:39] LABS: Potassium Redraw 4.7 mmol/L (3.5-5.0)
[2022-07-01 14:43] LABS: Urine Benzodiazepine Screen None Detected (None Detect); Urine Cannabinoids Screen None Detected (None Detect); Urine Opiates Screen None Detected (None Detect)
[2022-07-01 15:51] LABS: Urine Squamous Epithelial Cell Present (Absent)
[2022-07-01 15:52] LABS: Urine Bacteria 2+ (Absent); Urine Red Blood Cell 1+(3-5/hpf) (Absent); Urine White Blood Cell Trace(0-5/hpf) (Absent)
[2022-07-01 16:11] LABS: PCO2 Arterial 68 mmHg (35-45); PO2 Arterial 64 mmHg (80-100)
[2022-07-01] MEDS ORDERED: Albuterol 2.5mg/3 ml (0.083%) NEB.SOLN INH PRN (17:51)
[2022-07-01] MEDS ORDERED: Acetaminophen IV 1 GM/100ML 1,000 MG/100 ML BAG IV PRN (17:51)
[2022-07-01] MEDS ORDERED: methylPREDNISolone SOD SUCC 40 mg/ml 1 ml VIAL IV ONE (17:51)
[2022-07-01 17:53] LABS: PCO2 Arterial 70 mmHg (35-45); PO2 Arterial 118 mmHg (80-100)
[2022-07-01] MEDS ORDERED: methylPREDNISolone SOD SUCC 40 mg/ml 1 ml VIAL IV SCH (18:00)
[2022-07-01] MEDS: Albuterol/Ipratropium NEB.SOL (2.5/0.5 MG) 3 ML NEB.SOLN INH SCH ×2 (19:29→23:52)
[2022-07-01] MEDS: Mometasone/Formoter 200/5 MDI INH SCH ×2 (19:29→19:42)
[2022-07-01 19:43] LABS: PCO2 Arterial 70 mmHg (35-45); PO2 Arterial 75 mmHg (80-100)
[2022-07-02 00:15] LABS: PCO2 Arterial 68 mmHg (35-45); PO2 Arterial 118 mmHg (80-100)
[2022-07-02] MEDS: methylPREDNISolone SOD SUCC 40 mg/ml 1 ml VIAL IV SCH ×3 (01:56→17:52)
[2022-07-02] MEDS: Albuterol/Ipratropium NEB.SOL (2.5/0.5 MG) 3 ML NEB.SOLN INH SCH ×6 (03:21→23:37)
[2022-07-02 05:16] LABS: ABS Lymphocytes 0.2 10^3/ul (1.0-4.8); ABS Monocytes 0.1 10^3/ul (0-0.8); ABS Neutrophils 3.6 10^3/ul (1.5-7.7); Hematocrit 35 % (35-47); Lymphocyte % 5.5 %; Mean Corpuscular HGB Conc 32 g/dL (31-36); Mean Corpuscular Hemoglobin 28 pg (27-31); Mean Corpuscular Volume 88 fL (80-97); Mean Platelet Volume 8.7 fL (7.4-10.4); Platelet Count 147 10^3/uL (150-450); Red Blood Count 3.94 10^6 /uL (3.70-4.87); Red Cell Distribution Width 15 % (10-15); White Blood Count 3.9 10^3/uL (3.5-10.8)
[2022-07-02 05:25] LABS: INR 4.53 (0.89-1.11)
[2022-07-02 05:50] LABS: Calcium 9.8 mg/dL (8.6-10.3); Lithium 1.32 mmol/L (0.6-1.2); eGFR CKD-EPI 36.9 (>60)
[2022-07-02 05:56] LABS: Potassium 5.1 mmol/L (3.5-5.0)
[2022-07-02 06:08] LABS: PCO2 Arterial 65 mmHg (35-45); PO2 Arterial 107 mmHg (80-100)
[2022-07-02] MEDS ORDERED: Warfarin per PHARMACY **NOTE FOLLOW UP SCH (07:00)
[2022-07-02] MEDS ORDERED: Ondansetron 4 mg VIAL 2 MG/ML 2 ml VIAL IV PRN (09:39)
[2022-07-02] MEDS ORDERED: Ondansetron 4 mg VIAL 2 MG/ML 2 ml VIAL ONE (09:40)
[2022-07-02] MEDS ORDERED: Lactated Ringers 1000 ml BAG 1,000 ML IV ONE (09:54)
[2022-07-02 11:12] LABS: Urine Creatinine Concentration 116.47 mg/dL
[2022-07-02] MEDS: Mometasone/Formoter 200/5 MDI INH SCH ×2 (11:22→20:16)
[2022-07-02] MEDS ORDERED: Warfarin - No Order Today **NOTE FOLLOW UP ONE (17:00)
[2022-07-03] MEDS: methylPREDNISolone SOD SUCC 40 mg/ml 1 ml VIAL IV SCH ×2 (01:24→09:07)
[2022-07-03] MEDS: Albuterol/Ipratropium NEB.SOL (2.5/0.5 MG) 3 ML NEB.SOLN INH SCH ×5 (03:56→22:43)
[2022-07-03 04:42] LABS: ABS Lymphocytes 0.3 10^3/ul (1.0-4.8); ABS Monocytes 0.2 10^3/ul (0-0.8); ABS Neutrophils 3.5 10^3/ul (1.5-7.7); Eosinophil % 0.1 %; Hematocrit 32 % (35-47); Hemoglobin 10.1 g/dL (12.0-16.0); Lymphocyte % 6.6 %; Mean Corpuscular HGB Conc 32 g/dL (31-36); Mean Corpuscular Hemoglobin 27 pg (27-31); Mean Corpuscular Volume 86 fL (80-97); Mean Platelet Volume 8.7 fL (7.4-10.4); Nucleated Red Blood Cells % 0.1; Platelet Count 143 10^3/uL (150-450); Red Blood Count 3.73 10^6 /uL (3.70-4.87); Red Cell Distribution Width 15 % (10-15); White Blood Count 3.9 10^3/uL (3.5-10.8)
[2022-07-03 04:58] LABS: Blood Urea Nitrogen 46 mg/dL (6-24); CO2 Carbon Dioxide 31 mmol/L (22-32); Calcium 10.1 mg/dL (8.6-10.3); Chloride 100 mmol/L (101-111); Glucose 163 mg/dL (70-100); Magnesium 1.8 mg/dL (1.9-2.7); Sodium 135 mmol/L (135-145)
[2022-07-03 05:07] LABS: Anion Gap 4 mmol/L (2-11); Lithium 1.79 mmol/L (0.6-1.2)
[2022-07-03 05:10] LABS: INR 3.82 (0.89-1.11)
[2022-07-03 06:29] LABS: Potassium Redraw 5.3 mmol/L (3.5-5.0)
[2022-07-03] MEDS ORDERED: Magnesium Sulfate 2 gm BAG 2 GM/50 ML BAG IVPB ONE (07:23)
[2022-07-03] MEDS: Mometasone/Formoter 200/5 MDI INH SCH ×2 (07:42→19:48)
[2022-07-03] MEDS: NS 0.9% 1000 ml BAG 1,000 ML IV SCH (09:07)
[2022-07-03] MEDS: Warfarin DAILY REMINDER **NOTE FOLLOW UP SCH (17:29)
[2022-07-04] MEDS: NS 0.9% 1000 ml BAG 1,000 ML IV SCH (00:33)
[2022-07-04] MEDS: Albuterol/Ipratropium NEB.SOL (2.5/0.5 MG) 3 ML NEB.SOLN INH SCH ×4 (01:52→17:29)
[2022-07-04 06:27] LABS: INR 1.69 (0.89-1.11)
[2022-07-04] MEDS: SODIUM ZIRCONIUM CYCLOSILICATE 10 GM PACKET PO SCH ×3 (08:47→20:29)
[2022-07-04] MEDS: Mometasone/Formoter 200/5 MDI INH SCH ×2 (09:11→17:29)
[2022-07-04 10:01] LABS: Calcium 9.2 mg/dL (8.6-10.3); eGFR CKD-EPI 53.2 (>60)
[2022-07-04 10:25] LABS: Lithium 0.7 mmol/L (0.6-1.2)
[2022-07-04] MEDS: Warfarin DAILY REMINDER **NOTE FOLLOW UP SCH (22:12)
[2022-07-05] MEDS: Albuterol/Ipratropium NEB.SOL (2.5/0.5 MG) 3 ML NEB.SOLN INH SCH ×4 (00:50→18:53)
[2022-07-05 05:58] LABS: Hematocrit 36 % (35-47); Hemoglobin 11.2 g/dL (12.0-16.0); Mean Corpuscular HGB Conc 31 g/dL (31-36); Mean Corpuscular Hemoglobin 27 pg (27-31); Mean Corpuscular Volume 88 fL (80-97); Mean Platelet Volume 8.6 fL (7.4-10.4); Platelet Count 151 10^3/uL (150-450); Red Cell Distribution Width 15 % (10-15)
[2022-07-05 06:03] LABS: INR 1.21 (0.89-1.11)
[2022-07-05 06:29] LABS: Calcium 9.5 mg/dL (8.6-10.3); eGFR CKD-EPI 54.9 (>60)
[2022-07-05] MEDS: Mometasone/Formoter 200/5 MDI INH SCH ×2 (07:46→18:52)
[2022-07-05 08:26] LABS: ABS Eosinophils 0.1 10^3/ul (0-0.6); ABS Lymphocytes 0.9 10^3/ul (1.0-4.8); ABS Monocytes 0.5 10^3/ul (0-0.8); ABS Neutrophils 3.5 10^3/ul (1.5-7.7); Eosinophil % 1.1 %; Lymphocyte % 18.8 %; Nucleated Red Blood Cells % 0.2
[2022-07-05] MEDS: SODIUM ZIRCONIUM CYCLOSILICATE 10 GM PACKET PO SCH ×3 (08:53→20:49)
[2022-07-05] MEDS: Warfarin DAILY REMINDER **NOTE FOLLOW UP SCH (16:38)
[2022-07-06] MEDS: Albuterol/Ipratropium NEB.SOL (2.5/0.5 MG) 3 ML NEB.SOLN INH SCH ×2 (00:42→07:08)
[2022-07-06 05:51] LABS: INR 1.22 (0.89-1.11)
[2022-07-06 05:57] VITALS: BP 141/50
[2022-07-06] MEDS: Mometasone/Formoter 200/5 MDI INH SCH (07:09)
== END 2022-07-06 10:30 | disposition home or self-care (01) | DRG 189 ==
LOC: ED 11:27 → ICU 20:11 → SUATTDRO 21:13 → MED 07-03 10:09
PROVIDERS: ADMIT Internal Medicine; ATTEND Internal Medicine

== ENCOUNTER 2022-08-01 02:01 | Inpatient (IN) ==
[2022-08-01] MEDS ORDERED: Magnesium Sulfate 2 gm BAG 2 GM/50 ML BAG IVPB ONE (02:16)
[2022-08-01] MEDS ORDERED: Lactated Ringers 1000 ml BAG 1,000 ML IV ONE (02:16)
[2022-08-01 02:55] LABS: Venous Bicarbonate HCO3 28.5 mmol/L (24-28)
[2022-08-01 02:57] LABS: ABS Eosinophils 0.2 10^3/ul (0-0.6); ABS Lymphocytes 0.5 10^3/ul (1.0-4.8); ABS Monocytes 0.4 10^3/ul (0-0.8); ABS Neutrophils 5.2 10^3/ul (1.5-7.7); Eosinophil % 3.1 %; Hematocrit 35 % (35-47); Hemoglobin 11.1 g/dL (12.0-16.0); Lymphocyte % 7.9 %; Mean Corpuscular HGB Conc 31 g/dL (31-36); Mean Corpuscular Hemoglobin 28 pg (27-31); Mean Corpuscular Volume 88 fL (80-97); Mean Platelet Volume 8.5 fL (7.4-10.4); Platelet Count 130 10^3/uL (150-450); Red Cell Distribution Width 16 % (10-15); White Blood Count 6.4 10^3/uL (3.5-10.8)
[2022-08-01 03:14] LABS: Activated Partial Thrombo Time 37.4 seconds (26.0-38.0); INR 2.02 (0.89-1.11)
[2022-08-01 03:17] LABS: Calcium 9.6 mg/dL (8.6-10.3); Potassium 4.2 mmol/L (3.5-5.0); eGFR CKD-EPI 76.5 (>60)
[2022-08-01] MEDS: Albuterol/Ipratropium NEB.SOL (2.5/0.5 MG) 3 ML NEB.SOLN INH SCH ×4 (03:24→04:55)
[2022-08-01 04:58] LABS: Venous Bicarbonate HCO3 26.9 mmol/L (24-28)
[2022-08-01] MEDS ORDERED: Azithromycin 500 mg/250 ml NS 500 MG/250 ML BAG IVPB ONE (05:19)
[2022-08-01] MEDS ORDERED: cefTRIAXone 1 gm/50 mL D5W 1 GM/50 ML BAG IV ONE (05:20)
[2022-08-01] MEDS ORDERED: Magnesium Hydroxide LIQ 30 ML UDC PO PRN (05:43)
[2022-08-01] MEDS ORDERED: Al Hydrox/Mg Hydrox/Simet LIQ 30 ML UDC PO PRN (05:43)
[2022-08-01 06:25] LABS: C Reactive Protein 56.9 mg/L (<8.01)
[2022-08-01 06:28] LABS: High Sensitivity Troponin 1 Hr 5 pg/mL (<15)
[2022-08-01] MEDS: Albuterol/Ipratropium NEB.SOL (2.5/0.5 MG) 3 ML NEB.SOLN INH PRN ×2 (07:15→16:15)
[2022-08-01 07:26] LABS: PO2 Arterial 64 mmHg (80-100)
[2022-08-01 07:29] LABS: PCO2 Arterial 73 mmHg (35-45)
[2022-08-01] MEDS: methylPREDNISolone SOD SUCC 40 mg/ml 1 ml VIAL IV SCH ×2 (08:01→17:02)
[2022-08-01] MEDS ORDERED: Warfarin per PHARMACY **NOTE FOLLOW UP SCH (14:00)
[2022-08-01] MEDS ORDERED: Albuterol/Ipratropium NEB.SOL (2.5/0.5 MG) 3 ML NEB.SOLN INH PRN (14:04)
[2022-08-01 15:12] LABS: PCO2 Arterial 58 mmHg (35-45); PO2 Arterial 60 mmHg (80-100)
[2022-08-01 15:37] LABS: Lithium 1.1 mmol/L (0.6-1.2)
[2022-08-02] MEDS: methylPREDNISolone SOD SUCC 40 mg/ml 1 ml VIAL IV SCH ×2 (05:32→17:27)
[2022-08-02 06:21] LABS: ABS Lymphocytes 0.3 10^3/ul (1.0-4.8); ABS Monocytes 0.3 10^3/ul (0-0.8); ABS Neutrophils 3.3 10^3/ul (1.5-7.7); Eosinophil % 0.2 %; Hematocrit 31 % (35-47); Hemoglobin 9.7 g/dL (12.0-16.0); Lymphocyte % 8.1 %; Mean Corpuscular HGB Conc 31 g/dL (31-36); Mean Corpuscular Hemoglobin 27 pg (27-31); Mean Corpuscular Volume 88 fL (80-97); Mean Platelet Volume 8.2 fL (7.4-10.4); Platelet Count 130 10^3/uL (150-450); Red Blood Count 3.57 10^6 /uL (3.70-4.87); Red Cell Distribution Width 16 % (10-15); White Blood Count 3.9 10^3/uL (3.5-10.8)
[2022-08-02 06:36] LABS: INR 2.94 (0.89-1.11)
[2022-08-02 07:04] LABS: Calcium 9.8 mg/dL (8.6-10.3); Potassium 5.1 mmol/L (3.5-5.0); eGFR CKD-EPI 74.4 (>60)
[2022-08-02] MEDS ORDERED: Isosorbide Mononit ER 30mg TAB PO SCH (09:00)
[2022-08-02] MEDS: Isosorbide Mononit ER 30mg TAB PO SCH (09:52)
[2022-08-02] MEDS: Albuterol/Ipratropium NEB.SOL (2.5/0.5 MG) 3 ML NEB.SOLN INH PRN ×2 (10:26→22:08)
[2022-08-03] MEDS: methylPREDNISolone SOD SUCC 40 mg/ml 1 ml VIAL IV SCH (04:43)
[2022-08-03] MEDS: Nicotine GUM 2MG FRUIT FLAVOR PO PRN (04:43)
[2022-08-03 06:29] LABS: INR 3.1 (0.89-1.11)
[2022-08-03 07:26] LABS: Hematocrit 33 % (35-47); Hemoglobin 10.6 g/dL (12.0-16.0); Mean Corpuscular HGB Conc 32 g/dL (31-36); Mean Corpuscular Hemoglobin 28 pg (27-31); Mean Corpuscular Volume 88 fL (80-97); Mean Platelet Volume 8.9 fL (7.4-10.4); Platelet Count 150 10^3/uL (150-450); Red Blood Count 3.77 10^6 /uL (3.70-4.87); Red Cell Distribution Width 16 % (10-15); White Blood Count 4.4 10^3/uL (3.5-10.8)
[2022-08-03 07:36] LABS: Calcium 10.1 mg/dL (8.6-10.3); Magnesium 1.8 mg/dL (1.9-2.7); Potassium 4.9 mmol/L (3.5-5.0); eGFR CKD-EPI 54.9 (>60)
[2022-08-03] MEDS: Nicotine PATCH 14 MG/24 HR PATCH TRANSDERM SCH (08:00)
[2022-08-03] MEDS: Isosorbide Mononit ER 30mg TAB PO SCH (08:09)
[2022-08-03] MEDS: Albuterol/Ipratropium NEB.SOL (2.5/0.5 MG) 3 ML NEB.SOLN INH PRN ×2 (08:19→15:06)
[2022-08-03] MEDS ORDERED: Magnesium Sulfate 2 gm BAG 2 GM/50 ML BAG IVPB ONE (09:06)
[2022-08-03 13:43] LABS: Urine Creatinine Concentration 17.06 mg/dL
[2022-08-04] MEDS: Nicotine GUM 2MG FRUIT FLAVOR PO PRN ×2 (01:27→09:17)
[2022-08-04 07:59] LABS: Hematocrit 35 % (35-47); Hemoglobin 11.2 g/dL (12.0-16.0); Mean Corpuscular HGB Conc 32 g/dL (31-36); Mean Corpuscular Hemoglobin 28 pg (27-31); Mean Corpuscular Volume 87 fL (80-97); Mean Platelet Volume 8.4 fL (7.4-10.4); Platelet Count 165 10^3/uL (150-450); Red Blood Count 4.06 10^6 /uL (3.70-4.87); Red Cell Distribution Width 15 % (10-15); White Blood Count 5.7 10^3/uL (3.5-10.8)
[2022-08-04 08:01] LABS: INR 2.17 (0.89-1.11)
[2022-08-04 08:26] LABS: Calcium 10.2 mg/dL (8.6-10.3); Magnesium 2.3 mg/dL (1.9-2.7); Potassium 5.1 mmol/L (3.5-5.0); eGFR CKD-EPI 65.3 (>60)
[2022-08-04] MEDS: Isosorbide Mononit ER 30mg TAB PO SCH (09:16)
[2022-08-04] MEDS: Nicotine PATCH 14 MG/24 HR PATCH TRANSDERM SCH (09:18)
[2022-08-04] MEDS: Albuterol/Ipratropium NEB.SOL (2.5/0.5 MG) 3 ML NEB.SOLN INH PRN (16:51)
[2022-08-04] MEDS ORDERED: Warfarin DAILY REMINDER **NOTE FOLLOW UP SCH (17:00)
[2022-08-04] MEDS ORDERED: Albuterol/Ipratropium NEB.SOL (2.5/0.5 MG) 3 ML NEB.SOLN INH SCH (17:01)
[2022-08-04] MEDS: Albuterol/Ipratropium NEB.SOL (2.5/0.5 MG) 3 ML NEB.SOLN INH SCH (19:13)
[2022-08-05] MEDS: Albuterol/Ipratropium NEB.SOL (2.5/0.5 MG) 3 ML NEB.SOLN INH SCH ×3 (01:30→11:34)
[2022-08-05 06:51] LABS: INR 1.63 (0.89-1.11)
[2022-08-05] MEDS: Isosorbide Mononit ER 30mg TAB PO SCH (10:23)
[2022-08-05] MEDS: Nicotine PATCH 14 MG/24 HR PATCH TRANSDERM SCH (10:24)
[2022-08-05] MEDS: Nicotine GUM 2MG FRUIT FLAVOR PO PRN (10:25)
[2022-08-05 11:28] VITALS: BP 180/70
== END 2022-08-05 12:20 | disposition home or self-care (01) | DRG 190 ==
LOC: ED 02:01 → EDHOLD 02:01 → SUATTDRO 05:43 → OBSVTOIN 05:43 → ICU 10:34 → MED 08-02 16:57
PROVIDERS: ADMIT Internal Medicine; ATTEND Hospitalist

== ENCOUNTER 2022-08-22 14:04 | Observation (INO) ==
[2022-08-22] MEDS ORDERED: methylPREDNISolone SOD SUCC 125 mg 2 ML VIAL IV ONE (14:19)
[2022-08-22] MEDS ORDERED: Acetaminophen IV 1 GM/100ML 1,000 MG/100 ML BAG IV ONE (14:19)
[2022-08-22] MEDS ORDERED: Albuterol HFA INHALER 8 gm MDI INH ONE (14:19)
[2022-08-22 14:45] LABS: Venous Bicarbonate HCO3 28.5 mmol/L (24-28)
[2022-08-22 14:46] LABS: ABS Eosinophils 0.4 10^3/ul (0-0.6); ABS Lymphocytes 0.7 10^3/ul (1.0-4.8); ABS Monocytes 0.2 10^3/ul (0-0.8); ABS Neutrophils 3.6 10^3/ul (1.5-7.7); Eosinophil % 8.3 %; Hematocrit 30 % (35-47); Hemoglobin 9.6 g/dL (12.0-16.0); Lymphocyte % 14.5 %; Mean Corpuscular HGB Conc 32 g/dL (31-36); Mean Corpuscular Hemoglobin 28 pg (27-31); Mean Corpuscular Volume 87 fL (80-97); Mean Platelet Volume 8.1 fL (7.4-10.4); Nucleated Red Blood Cells % 0.1; Platelet Count 145 10^3/uL (150-450); Red Blood Count 3.46 10^6 /uL (3.70-4.87); Red Cell Distribution Width 16 % (10-15)
[2022-08-22 14:51] LABS: INR 2.5 (0.88-1.18)
[2022-08-22 15:42] LABS: ALT 9 U/L (7-52); AST 10 U/L (13-39); Albumin 3.8 g/dL (3.2-5.2); Albumin/Globulin Ratio 2.1 (1-3); Alkaline Phosphatase 80 U/L (35-149); Blood Urea Nitrogen 16 mg/dL (6-24); CO2 Carbon Dioxide 37 mmol/L (22-32); Calcium 9.4 mg/dL (8.6-10.3); Chloride 104 mmol/L (101-111); Creatine Kinase 13 U/L (10-223); Globulin 1.8 g/dL (2-4); Glucose 132 mg/dL (70-100); Lipase 22 U/L (11.0-82.0); Potassium 4.7 mmol/L (3.5-5.0); Sodium 140 mmol/L (135-145); Total Protein 5.6 g/dL (6.4-8.9); eGFR CKD-EPI 56.7 (>60)
[2022-08-22] MEDS ORDERED: Iodixanol (CONTRAST) 320 MG/ML 100 ML SDV IV ONE (15:54)
[2022-08-22 16:52] LABS: PCO2 Arterial 68 mmHg (35-45); PO2 Arterial 202 mmHg (80-100)
[2022-08-22] MEDS ORDERED: Albuterol/Ipratropium NEB.SOL (2.5/0.5 MG) 3 ML NEB.SOLN INH ONE ×2 (17:07→17:35)
[2022-08-22] MEDS ORDERED: Azithromycin 500 mg/250 ml NS 500 MG/250 ML BAG IVPB ONE (18:12)
[2022-08-22] MEDS ORDERED: Nicotine GUM 4MG FRUIT FLAVOR PO PRN (19:26)
[2022-08-22] MEDS ORDERED: NICOTINE SCH (19:30)
[2022-08-22] MEDS: Albuterol/Ipratropium NEB.SOL (2.5/0.5 MG) 3 ML NEB.SOLN INH SCH (20:43)
[2022-08-23] MEDS: methylPREDNISolone SOD SUCC 40 mg/ml 1 ml VIAL IV SCH ×2 (01:36→08:45)
[2022-08-23] MEDS: Albuterol/Ipratropium NEB.SOL (2.5/0.5 MG) 3 ML NEB.SOLN INH SCH ×2 (02:48→14:00)
[2022-08-23 05:32] LABS: ABS Lymphocytes 0.2 10^3/ul (1.0-4.8); ABS Neutrophils 2.9 10^3/ul (1.5-7.7); Eosinophil % 0.1 %; Hematocrit 29 % (35-47); Hemoglobin 9.3 g/dL (12.0-16.0); Lymphocyte % 6.1 %; Mean Corpuscular HGB Conc 32 g/dL (31-36); Mean Corpuscular Hemoglobin 28 pg (27-31); Mean Corpuscular Volume 87 fL (80-97); Mean Platelet Volume 8.5 fL (7.4-10.4); Platelet Count 139 10^3/uL (150-450); Red Blood Count 3.36 10^6 /uL (3.70-4.87); Red Cell Distribution Width 16 % (10-15); White Blood Count 3.2 10^3/uL (3.5-10.8)
[2022-08-23 05:37] LABS: INR 2.37 (0.88-1.18)
[2022-08-23 06:38] LABS: Blood Urea Nitrogen 18 mg/dL (6-24); CO2 Carbon Dioxide 31 mmol/L (22-32); Calcium 9.2 mg/dL (8.6-10.3); Chloride 101 mmol/L (101-111); Glucose 175 mg/dL (70-100); Magnesium 1.6 mg/dL (1.9-2.7); Sodium 137 mmol/L (135-145); eGFR CKD-EPI 72.4 (>60)
[2022-08-23 06:51] LABS: Anion Gap 5 mmol/L (2-11)
[2022-08-23] MEDS ORDERED: Magnesium Sulfate 2 gm BAG 2 GM/50 ML BAG IVPB ONE (07:21)
[2022-08-23] MEDS: Isosorbide Mononit ER 30mg TAB PO SCH (08:32)
[2022-08-23] MEDS: Nicotine PATCH 7 MG/24 HR PATCH TRANSDERM SCH (08:35)
[2022-08-23] MEDS ORDERED: Albuterol/Ipratropium NEB.SOL (2.5/0.5 MG) 3 ML NEB.SOLN INH PRN (15:17)
[2022-08-23] MEDS ORDERED: Albuterol HFA INHALER 8 gm MDI INH PRN (15:28)
[2022-08-23] MEDS ORDERED: Warfarin DAILY REMINDER **NOTE FOLLOW UP SCH (17:00)
[2022-08-24 07:01] LABS: Hematocrit 30 % (35-47); Hemoglobin 9.6 g/dL (12.0-16.0); Mean Corpuscular HGB Conc 32 g/dL (31-36); Mean Corpuscular Hemoglobin 28 pg (27-31); Mean Corpuscular Volume 89 fL (80-97); Mean Platelet Volume 8.4 fL (7.4-10.4); Platelet Count 143 10^3/uL (150-450); Red Blood Count 3.41 10^6 /uL (3.70-4.87); Red Cell Distribution Width 17 % (10-15); White Blood Count 4.7 10^3/uL (3.5-10.8)
[2022-08-24 07:33] LABS: Blood Urea Nitrogen 31 mg/dL (6-24); CO2 Carbon Dioxide 35 mmol/L (22-32); Calcium 9.5 mg/dL (8.6-10.3); Chloride 105 mmol/L (101-111); Glucose 87 mg/dL (70-100); Magnesium 1.9 mg/dL (1.9-2.7); Potassium 4.8 mmol/L (3.5-5.0); Sodium 140 mmol/L (135-145); eGFR CKD-EPI 59.3 (>60)
[2022-08-24] MEDS ORDERED: Albuterol HFA INHALER 8 gm MDI INH ONE (07:44)
[2022-08-24] MEDS ORDERED: Tiotropium Brom/Olodaterol MDI INH SCH (09:00)
[2022-08-24] MEDS: Isosorbide Mononit ER 30mg TAB PO SCH (09:07)
[2022-08-24] MEDS: Nicotine PATCH 7 MG/24 HR PATCH TRANSDERM SCH (09:09)
[2022-08-24] MEDS: Albuterol HFA INHALER 8 gm MDI INH SCH ×2 (11:21→17:50)
[2022-08-24 14:32] LABS: Urine Appearance Clear; Urine Bilirubin Negative (Negative); Urine Blood Negative (Negative); Urine Color Yellow; Urine Glucose Negative (Negative); Urine Ketones Negative (Negative); Urine Nitrite Negative (Negative); Urine Protein Negative (Negative); Urine Specific Gravity <=1.005 (1.005-1.030); Urine Urobilinogen 0.2 (Negative) (Negative); Urine pH 5.5 (5.0-9.0)
[2022-08-24 15:36] VITALS: BP 136/61
== END 2022-08-24 18:00 | disposition home or self-care (01) ==
LOC: ED 14:04 → EDHOLD 14:04 → SUATTDRO 18:14 → EDHOLD 08-23 16:08 → MED 08-23 16:47
PROVIDERS: ADMIT Internal Medicine; ATTEND Internal Medicine

== ENCOUNTER 2022-09-04 04:57 | Inpatient (IN) ==
[2022-09-04] MEDS ORDERED: methylPREDNISolone SOD SUCC 125 mg 2 ML VIAL IV ONE (05:07)
[2022-09-04] MEDS ORDERED: Albuterol 0.5% CONC CONTINUOUS NEB.SOL 5 mg/ml 20 ml BOT INH ONE (05:07)
[2022-09-04 05:49] LABS: ABS Eosinophils 0.1 10^3/ul (0-0.6); ABS Lymphocytes 0.2 10^3/ul (1.0-4.8); ABS Monocytes 0.4 10^3/ul (0-0.8); ABS Neutrophils 7.2 10^3/ul (1.5-7.7); Eosinophil % 0.9 %; Hematocrit 36 % (35-47); Hemoglobin 11.7 g/dL (12.0-16.0); Lymphocyte % 2.7 %; Mean Corpuscular HGB Conc 33 g/dL (31-36); Mean Corpuscular Hemoglobin 28 pg (27-31); Mean Corpuscular Volume 86 fL (80-97); Mean Platelet Volume 7.9 fL (7.4-10.4); Platelet Count 135 10^3/uL (150-450); Red Blood Count 4.17 10^6 /uL (3.70-4.87); Red Cell Distribution Width 17 % (10-15); Venous Bicarbonate HCO3 35.2 mmol/L (24-28); White Blood Count 7.9 10^3/uL (3.5-10.8)
[2022-09-04 07:11] LABS: High Sensitivity Troponin 1 Hr 13 pg/mL (<15)
[2022-09-04 07:44] LABS: Albumin 4.2 g/dL (3.2-5.2); Calcium 9.5 mg/dL (8.6-10.3); Total Bilirubin 0.4 mg/dL (0.2-1.0)
[2022-09-04 07:50] LABS: Globulin 2.1 g/dL (2-4); Total Protein 6.3 g/dL (6.4-8.9)
[2022-09-04 07:58] LABS: Potassium 4.8 mmol/L (3.5-5.0)
[2022-09-04] MEDS: Albuterol 2.5mg/3 ml (0.083%) NEB.SOLN INH SCH ×2 (08:28→08:29)
[2022-09-04 10:47] LABS: PCO2 Arterial 66 mmHg (35-45); PO2 Arterial 65 mmHg (80-100)
[2022-09-04] MEDS ORDERED: Albuterol HFA INHALER 8 gm MDI INH PRN (12:09)
[2022-09-04] MEDS: methylPREDNISolone SOD SUCC 40 mg/ml 1 ml VIAL IV SCH ×2 (12:46→20:13)
[2022-09-04] MEDS: cefTRIAXone 1 gm/50 mL D5W 1 GM/50 ML BAG IV SCH (12:46)
[2022-09-04] MEDS: Albuterol/Ipratropium NEB.SOL (2.5/0.5 MG) 3 ML NEB.SOLN INH SCH ×2 (14:12→21:01)
[2022-09-04 17:26] LABS: Lithium 0.89 mmol/L (0.6-1.2)
[2022-09-04 17:45] LABS: INR 1.86 (0.88-1.18)
[2022-09-04] MEDS ORDERED: Warfarin per PHARMACY **NOTE FOLLOW UP SCH (18:00)
[2022-09-04 18:02] LABS: Urine Bacteria Absent (Absent); Urine Red Blood Cell Absent (Absent); Urine Squamous Epithelial Cell Present (Absent); Urine White Blood Cell Absent (Absent)
[2022-09-04 18:09] LABS: Urine Appearance Clear; Urine Bilirubin Negative (Negative); Urine Blood Negative (Negative); Urine Color Yellow; Urine Glucose Negative (Negative); Urine Ketones Negative (Negative); Urine Nitrite Negative (Negative); Urine Protein 1+ (30 mg/dL) (Negative); Urine Specific Gravity 1.025 (1.005-1.030); Urine Urobilinogen 0.2 (Negative) (Negative)
[2022-09-04] MEDS: Mometasone/Formoter 200/5 MDI INH SCH (21:17)
[2022-09-05] MEDS: methylPREDNISolone SOD SUCC 40 mg/ml 1 ml VIAL IV SCH ×3 (05:43→20:38)
[2022-09-05 05:54] LABS: ABS Lymphocytes 0.2 10^3/ul (1.0-4.8); ABS Monocytes 0.3 10^3/ul (0-0.8); Hematocrit 33 % (35-47); Hemoglobin 10.8 g/dL (12.0-16.0); Lymphocyte % 2.8 %; Mean Corpuscular HGB Conc 33 g/dL (31-36); Mean Corpuscular Hemoglobin 28 pg (27-31); Mean Corpuscular Volume 86 fL (80-97); Nucleated Red Blood Cells % 0.1; Platelet Count 124 10^3/uL (150-450); Red Blood Count 3.85 10^6 /uL (3.70-4.87); Red Cell Distribution Width 16 % (10-15); White Blood Count 5.4 10^3/uL (3.5-10.8)
[2022-09-05 06:00] LABS: INR 1.89 (0.88-1.18)
[2022-09-05 06:19] LABS: Calcium 9.1 mg/dL (8.6-10.3); Magnesium 1.7 mg/dL (1.9-2.7); Phosphorus 4.4 mg/dL (2.5-5.0); Potassium 4.8 mmol/L (3.5-5.0); eGFR CKD-EPI 45.5 (>60)
[2022-09-05] MEDS ORDERED: Albuterol/Ipratropium NEB.SOL (2.5/0.5 MG) 3 ML NEB.SOLN INH SCH (07:00)
[2022-09-05] MEDS: Mometasone/Formoter 200/5 MDI INH SCH ×2 (07:15→19:54)
[2022-09-05] MEDS ORDERED: Magnesium Sulfate 2 gm BAG 2 GM/50 ML BAG IVPB ONE (07:19)
[2022-09-05] MEDS: Albuterol/Ipratropium NEB.SOL (2.5/0.5 MG) 3 ML NEB.SOLN INH SCH ×3 (09:26→19:54)
[2022-09-05] MEDS: Nicotine PATCH 7 MG/24 HR PATCH TRANSDERM SCH (11:10)
[2022-09-05] MEDS: Nicotine GUM 4MG FRUIT FLAVOR PO PRN ×3 (11:12→17:50)
[2022-09-05] MEDS: Isosorbide Mononit ER 30mg TAB PO SCH (11:14)
[2022-09-05 12:30] LABS: High Sensitivity Troponin 1 Hr 10 pg/mL (<15)
[2022-09-05] MEDS: cefTRIAXone 1 gm/50 mL D5W 1 GM/50 ML BAG IV SCH (14:40)
[2022-09-05] MEDS ORDERED: Influenza vaccine *QUAD* *2022-23* 0.5 ML SYRINGE IM ONE (15:00)
[2022-09-05] MEDS: Warfarin DAILY REMINDER **NOTE FOLLOW UP SCH (19:41)
[2022-09-06] MEDS: Albuterol/Ipratropium NEB.SOL (2.5/0.5 MG) 3 ML NEB.SOLN INH SCH ×5 (00:30→19:11)
[2022-09-06] MEDS: methylPREDNISolone SOD SUCC 40 mg/ml 1 ml VIAL IV SCH ×3 (05:54→20:18)
[2022-09-06 06:31] LABS: ABS Lymphocytes 0.2 10^3/ul (1.0-4.8); ABS Monocytes 0.2 10^3/ul (0-0.8); ABS Neutrophils 6.4 10^3/ul (1.5-7.7); Hematocrit 32 % (35-47); Hemoglobin 10.6 g/dL (12.0-16.0); Lymphocyte % 3.5 %; Mean Corpuscular HGB Conc 33 g/dL (31-36); Mean Corpuscular Hemoglobin 28 pg (27-31); Mean Corpuscular Volume 86 fL (80-97); Mean Platelet Volume 8.2 fL (7.4-10.4); Nucleated Red Blood Cells % 0.2; Platelet Count 138 10^3/uL (150-450); Red Blood Count 3.77 10^6 /uL (3.70-4.87); Red Cell Distribution Width 17 % (10-15); White Blood Count 6.9 10^3/uL (3.5-10.8)
[2022-09-06 06:42] LABS: INR 2.15 (0.88-1.18)
[2022-09-06 06:51] LABS: Calcium 9.7 mg/dL (8.6-10.3); eGFR CKD-EPI 47.2 (>60)
[2022-09-06 06:56] LABS: Potassium 5.1 mmol/L (3.5-5.0)
[2022-09-06] MEDS: Mometasone/Formoter 200/5 MDI INH SCH ×2 (07:12→19:11)
[2022-09-06] MEDS: Nicotine PATCH 7 MG/24 HR PATCH TRANSDERM SCH (08:52)
[2022-09-06] MEDS: Isosorbide Mononit ER 30mg TAB PO SCH (08:58)
[2022-09-06] MEDS: Nicotine GUM 4MG FRUIT FLAVOR PO PRN ×2 (10:17→14:50)
[2022-09-06] MEDS: cefTRIAXone 1 gm/50 mL D5W 1 GM/50 ML BAG IV SCH (14:51)
[2022-09-07] MEDS: Albuterol/Ipratropium NEB.SOL (2.5/0.5 MG) 3 ML NEB.SOLN INH SCH ×2 (00:58→07:50)
[2022-09-07 03:07] LABS: High Sensitivity Troponin 1 Hr 9 pg/mL (<15)
[2022-09-07] MEDS: methylPREDNISolone SOD SUCC 40 mg/ml 1 ml VIAL IV SCH ×2 (05:02→18:32)
[2022-09-07] MEDS: Mometasone/Formoter 200/5 MDI INH SCH ×2 (07:50→19:42)
[2022-09-07 08:26] LABS: Calcium 9.5 mg/dL (8.6-10.3); Magnesium 1.7 mg/dL (1.9-2.7); eGFR CKD-EPI 54.3 (>60)
[2022-09-07 08:45] LABS: INR 3.12 (0.88-1.18)
[2022-09-07] MEDS: Isosorbide Mononit ER 30mg TAB PO SCH (08:54)
[2022-09-07] MEDS: Nicotine PATCH 7 MG/24 HR PATCH TRANSDERM SCH (08:56)
[2022-09-07] MEDS: Nicotine GUM 4MG FRUIT FLAVOR PO PRN ×2 (09:03→12:46)
[2022-09-07] MEDS ORDERED: Albuterol/Ipratropium NEB.SOL (2.5/0.5 MG) 3 ML NEB.SOLN INH PRN (11:15)
[2022-09-07] MEDS: cefTRIAXone 1 gm/50 mL D5W 1 GM/50 ML BAG IV SCH (14:15)
[2022-09-07] MEDS: Warfarin DAILY REMINDER **NOTE FOLLOW UP SCH (18:04)
[2022-09-08] MEDS: methylPREDNISolone SOD SUCC 40 mg/ml 1 ml VIAL IV SCH (04:18)
[2022-09-08] MEDS ORDERED: Magnesium Sulfate 2 gm BAG 2 GM/50 ML BAG IVPB ONE (06:05)
[2022-09-08 06:27] LABS: INR 3.45 (0.88-1.18)
[2022-09-08] MEDS: Mometasone/Formoter 200/5 MDI INH SCH (07:12)
[2022-09-08 07:13] LABS: Calcium 9.5 mg/dL (8.6-10.3); Magnesium 1.9 mg/dL (1.9-2.7); eGFR CKD-EPI 45.9 (>60)
[2022-09-08 07:15] LABS: Potassium 5.2 mmol/L (3.5-5.0)
[2022-09-08] MEDS: Isosorbide Mononit ER 30mg TAB PO SCH (08:56)
[2022-09-08] MEDS: Nicotine PATCH 7 MG/24 HR PATCH TRANSDERM SCH (08:57)
[2022-09-08] MEDS: Nicotine GUM 4MG FRUIT FLAVOR PO PRN ×3 (08:57→16:12)
[2022-09-08 12:03] VITALS: BP 128/55
[2022-09-08] MEDS: cefTRIAXone 1 gm/50 mL D5W 1 GM/50 ML BAG IV SCH (13:06)
[2022-09-08] MEDS ORDERED: Warfarin - No Order Today **NOTE FOLLOW UP ONE (17:00)
[2022-09-08] MEDS ORDERED: Influenza vaccine *QUAD* *2022-23* 0.5 ML SYRINGE IM ONE (18:00)
== END 2022-09-08 18:22 | disposition home or self-care (01) | DRG 189 ==
LOC: ED 04:57 → EDHOLD 11:41 → SUATTDRO 11:41 → MEDTELE 09-05 00:22
PROVIDERS: ADMIT Internal Medicine; ATTEND Internal Medicine

== ENCOUNTER 2023-03-11 09:51 | Observation (INO) ==
[2023-03-11 13:19] LABS: ABS Lymphocytes 0.2 10^3/uL (1.0-4.8); ABS Monocytes 0.1 10^3/uL (0.0-0.9); ABS Nucleated RBC 0.01 10^3/ul; Eosinophil % 0.5 %; Hematocrit 38.8 % (35-45); Hemoglobin 12.5 g/dL (11.5-14.3); Mean Corpuscular Hemoglobin 27.2 pg (27-33); Mean Corpuscular Hgb Conc 32.1 g/dL (31-36); Mean Corpuscular Volume 84.6 fL (80-97); Mean Platelet Volume 8.3 fL (7.5-11.2); Nucleated Red Blood Cells % 0.1 /100 WBC (0.0-0.4); Platelet Count 136 10^3/uL (150-450); Red Blood Count 4.59 10^6/uL (3.63-4.92); Red Cell Distribution Width 17.8 % (12-17); White Blood Count 6.4 10^3/uL (3.8-11.8)
[2023-03-11 13:26] LABS: INR 1.91 (0.88-1.18)
[2023-03-11] MEDS ORDERED: Albuterol/Ipratropium NEB.SOL (2.5/0.5 MG) 3 ML NEB.SOLN INH ONE (13:40)
[2023-03-11 13:56] LABS: Albumin 4.2 g/dL (3.2-5.2); Albumin/Globulin Ratio 1.4 (1-3); C Reactive Protein 28.75 mg/L (<8.01); Calcium 10.2 mg/dL (8.6-10.3); Creatinine, Serum 0.92 mg/dL (0.51-0.95); Potassium 4.7 mmol/L (3.5-5.0); Total Bilirubin 0.3 mg/dL (0.2-1.0); Total Protein 7.2 g/dL (6.4-8.9); eGFR CKD-EPI 69.1 (>60)
[2023-03-11] MEDS ORDERED: Iohexol 350 (CONTRAST) 500 ML MDV IV ONE (14:19)
[2023-03-11 14:56] LABS: High Sensitivity Troponin 1 Hr 8 pg/mL (<15)
[2023-03-11] MEDS ORDERED: Al Hydrox/Mg Hydrox/Simet LIQ 30 ML UDC PO PRN (16:48)
[2023-03-11] MEDS ORDERED: Polyethylene Glycol 3350 17 GM PACKET PO PRN (16:48)
[2023-03-11] MEDS ORDERED: Albuterol/Ipratropium NEB.SOL (2.5/0.5 MG) 3 ML NEB.SOLN INH PRN (16:58)
[2023-03-11] MEDS ORDERED: Acetaminophen IV 1 GM/100ML 1,000 MG/100 ML BAG IV PRN (16:59)
[2023-03-11] MEDS ORDERED: methylPREDNISolone SOD SUCC 40 mg/ml 1 ml VIAL IV SCH (17:00)
[2023-03-11] MEDS ORDERED: Warfarin DAILY REMINDER **NOTE FOLLOW UP SCH (17:00)
[2023-03-11] MEDS ORDERED: Enoxaparin 40 MG/0.4 ML SYR SUBCUT SCH (17:00)
[2023-03-11] MEDS ORDERED: Albuterol HFA INHALER 8 gm MDI INH PRN (17:20)
[2023-03-11] MEDS ORDERED: Azithromycin 500 mg/250 ml NS 500 MG/250 ML BAG IVPB SCH ×2 (18:00→21:00)
[2023-03-11] MEDS: Albuterol/Ipratropium NEB.SOL (2.5/0.5 MG) 3 ML NEB.SOLN INH SCH (19:29)
[2023-03-11] MEDS ORDERED: Nicotine GUM 4MG FRUIT FLAVOR PO PRN (21:52)
[2023-03-11] MEDS: Nicotine PATCH 21 MG/24 HR PATCH TRANSDERM SCH (21:53)
[2023-03-11] MEDS: methylPREDNISolone SOD SUCC 40 mg/ml 1 ml VIAL IV SCH (22:08)
[2023-03-12 05:24] VITALS: BP 150/73
[2023-03-12] MEDS: methylPREDNISolone SOD SUCC 40 mg/ml 1 ml VIAL IV SCH (06:20)
[2023-03-12 06:29] LABS: ABS Lymphocytes 0.3 10^3/uL (1.0-4.8); ABS Monocytes 0.1 10^3/uL (0.0-0.9); ABS Nucleated RBC 0.01 10^3/ul; Eosinophil % 0.1 %; Hematocrit 33.4 % (35-45); Hemoglobin 10.9 g/dL (11.5-14.3); Lymphocyte % 9.1 %; Mean Corpuscular Hemoglobin 27.7 pg (27-33); Mean Corpuscular Hgb Conc 32.7 g/dL (31-36); Mean Corpuscular Volume 84.9 fL (80-97); Mean Platelet Volume 8.5 fL (7.5-11.2); Nucleated Red Blood Cells % 0.2 /100 WBC (0.0-0.4); Platelet Count 131 10^3/uL (150-450); Red Blood Count 3.94 10^6/uL (3.63-4.92); Red Cell Distribution Width 16.4 % (12-17); White Blood Count 3.5 10^3/uL (3.8-11.8)
[2023-03-12 06:34] LABS: INR 1.76 (0.88-1.18)
[2023-03-12 06:48] LABS: Calcium 9.7 mg/dL (8.6-10.3); Creatinine, Serum 0.9 mg/dL (0.51-0.95); Potassium 4.7 mmol/L (3.5-5.0); eGFR CKD-EPI 70.9 (>60)
[2023-03-12] MEDS: Albuterol/Ipratropium NEB.SOL (2.5/0.5 MG) 3 ML NEB.SOLN INH SCH ×3 (07:32→15:04)
[2023-03-12] MEDS ORDERED: Isosorbide Mononit ER 30mg TAB PO SCH (09:00)
[2023-03-12] MEDS: Nicotine PATCH 21 MG/24 HR PATCH TRANSDERM SCH (09:09)
== END 2023-03-12 15:30 | disposition home or self-care (01) ==
LOC: ED 09:51 → EDHOLD 09:51 → MED 20:00
PROVIDERS: ADMIT Internal Medicine; ATTEND Internal Medicine

== ENCOUNTER 2023-09-11 13:30 | Inpatient (IN) ==
[2023-09-11] MEDS ORDERED: methylPREDNISolone SOD SUCC 125 mg 2 ML VIAL IV ONE (14:50)
[2023-09-11] MEDS ORDERED: Albuterol/Ipratropium NEB.SOL (2.5/0.5 MG) 3 ML NEB.SOLN INH ONE (14:50)
[2023-09-11 14:55] LABS: Venous Bicarbonate HCO3 24.5 mmol/L (24-28)
[2023-09-11 15:03] LABS: ABS Eosinophils 0.1 10^3/uL (0.0-0.5); ABS Lymphocytes 0.6 10^3/uL (1.0-4.8); ABS Monocytes 0.7 10^3/uL (0.0-0.9); ABS Neutrophils 7.1 10^3/uL (1.5-7.6); ABS Nucleated RBC 0.01 10^3/ul; Eosinophil % 0.8 %; Hematocrit 32.4 % (35-45); Hemoglobin 10.6 g/dL (11.5-14.3); Lymphocyte % 7.6 %; Mean Corpuscular Hemoglobin 27.6 pg (27-33); Mean Corpuscular Hgb Conc 32.7 g/dL (31-36); Mean Corpuscular Volume 84.5 fL (80-97); Mean Platelet Volume 8.3 fL (7.5-11.2); Nucleated Red Blood Cells % 0.1 %/100WBC (0.0-0.8); Platelet Count 208 10^3/uL (150-450); Red Blood Count 3.84 10^6/uL (3.63-4.92); White Blood Count 8.5 10^3/uL (3.8-11.8)
[2023-09-11 15:05] LABS: Anion Gap 8 mmol/L (2-16); Blood Urea Nitrogen 16 mg/dL (6-24); C Reactive Protein 94.14 mg/L (<8.01); CO2 Carbon Dioxide 29 mmol/L (22-32); Calcium 10.2 mg/dL (8.6-10.3); Chloride 108 mmol/L (101-111); Creatinine, Serum 1.22 mg/dL (0.51-0.95); Glucose 104 mg/dL (70-100); Potassium 4.7 mmol/L (3.5-5.0); Sodium 145 mmol/L (135-145); eGFR CKD-EPI 49.2 (>60)
[2023-09-11 15:07] LABS: Alcohol, S < 13 mg/dL (<13)
[2023-09-11 15:10] LABS: ALT 13 U/L (7-52); AST 33 U/L (13-39); Albumin 3.9 g/dL (3.2-5.2); Albumin/Globulin Ratio 1.3 (1-3); Alkaline Phosphatase 95 U/L (35-149); Creatine Kinase 1916 U/L (10-223); Total Bilirubin 0.3 mg/dL (0.2-1.0); Total Protein 6.9 g/dL (6.4-8.9)
[2023-09-11 15:12] LABS: PCO2 Arterial 56 mmHg (35-45); PO2 Arterial 65 mmHg (80-100)
[2023-09-11] MEDS ORDERED: Lactated Ringers 1000 ml BAG 1,000 ML IV ONE (15:20)
[2023-09-11] MEDS ORDERED: Albuterol HFA INHALER 8 gm MDI INH PRN (19:25)
[2023-09-11] MEDS ORDERED: Albuterol/Ipratropium NEB.SOL (2.5/0.5 MG) 3 ML NEB.SOLN INH PRN (19:25)
[2023-09-11 19:47] LABS: High Sensitivity Troponin 1 Hr 31 pg/mL (<15)
[2023-09-11] MEDS ORDERED: methylPREDNISolone SOD SUCC 40 mg/ml 1 ml VIAL IV SCH (20:00)
[2023-09-11 20:02] LABS: Lithium 1.27 mmol/L (0.6-1.2)
[2023-09-11 22:28] LABS: INR 4.25 (0.83-1.13)
[2023-09-11 22:53] LABS: Creatine Kinase 3071 U/L (10-223)
[2023-09-12 03:25] LABS: Urine Appearance Clear; Urine Bilirubin Negative (Negative); Urine Blood 2+ (Negative); Urine Color Yellow; Urine Glucose Negative (Negative); Urine Ketones Trace (Negative); Urine Nitrite Negative (Negative); Urine Protein 1+(30 mg/dL) (Negative); Urine Specific Gravity 1.008 (1.002-1.030); Urine Urobilinogen Negative (Negative)
[2023-09-12 03:36] LABS: Urine Bacteria Absent (Absent); Urine Red Blood Cell Trace(0-2/hpf) (Absent); Urine Squamous Epithelial Cell Present (Absent); Urine White Blood Cell Absent (Absent)
[2023-09-12 05:42] LABS: ABS Lymphocytes 0.3 10^3/uL (1.0-4.8); ABS Monocytes 0.2 10^3/uL (0.0-0.9); ABS Neutrophils 4.7 10^3/uL (1.5-7.6); ABS Nucleated RBC 0.01 10^3/ul; Hematocrit 30.6 % (35-45); Hemoglobin 10.1 g/dL (11.5-14.3); Lymphocyte % 6.3 %; Mean Corpuscular Hemoglobin 27.8 pg (27-33); Mean Corpuscular Hgb Conc 32.9 g/dL (31-36); Mean Corpuscular Volume 84.3 fL (80-97); Mean Platelet Volume 7.8 fL (7.5-11.2); Nucleated Red Blood Cells % 0.2 %/100WBC (0.0-0.8); Platelet Count 185 10^3/uL (150-450); Red Blood Count 3.63 10^6/uL (3.63-4.92); Red Cell Distribution Width 14.8 % (12-17); White Blood Count 5.2 10^3/uL (3.8-11.8)
[2023-09-12] MEDS: methylPREDNISolone SOD SUCC 40 mg/ml 1 ml VIAL IV SCH ×2 (05:57→18:07)
[2023-09-12 06:58] LABS: Calcium 9.9 mg/dL (8.6-10.3); Creatinine, Serum 1.1 mg/dL (0.51-0.95); Potassium 4.7 mmol/L (3.5-5.0); eGFR CKD-EPI 55.8 (>60)
[2023-09-12] MEDS ORDERED: Warfarin per PHARMACY **NOTE FOLLOW UP SCH (08:00)
[2023-09-12] MEDS: Tiotropium Brom/Olodaterol MDI (ACUTE) INH SCH (08:32)
[2023-09-12 08:47] LABS: C Reactive Protein 90.69 mg/L (<8.01)
[2023-09-12 11:24] LABS: INR 5.62 (0.83-1.13)
[2023-09-12] MEDS: Isosorbide Mononit ER 30mg TAB PO SCH (13:49)
[2023-09-12] MEDS ORDERED: NS 0.9% 1000 ml BAG 1,000 ML IV SCH (14:15)
[2023-09-12] MEDS ORDERED: Warfarin DAILY REMINDER **NOTE FOLLOW UP SCH (17:00)
[2023-09-12] MEDS ORDERED: Warfarin - No Order Today **NOTE FOLLOW UP ONE (17:00)
[2023-09-13 06:36] LABS: ABS Lymphocytes 0.5 10^3/uL (1.0-4.8); ABS Monocytes 0.4 10^3/uL (0.0-0.9); ABS Neutrophils 5.8 10^3/uL (1.5-7.6); ABS Nucleated RBC 0.01 10^3/ul; Eosinophil % 0.1 %; Hematocrit 30.2 % (35-45); Lymphocyte % 7.9 %; Mean Corpuscular Hemoglobin 27.6 pg (27-33); Mean Corpuscular Hgb Conc 33.1 g/dL (31-36); Mean Corpuscular Volume 83.6 fL (80-97); Mean Platelet Volume 8.1 fL (7.5-11.2); Nucleated Red Blood Cells % 0.1 %/100WBC (0.0-0.8); Platelet Count 215 10^3/uL (150-450); Red Blood Count 3.61 10^6/uL (3.63-4.92); Red Cell Distribution Width 15.1 % (12-17); White Blood Count 6.7 10^3/uL (3.8-11.8)
[2023-09-13 06:50] LABS: INR 6.02 (0.83-1.13)
[2023-09-13 07:12] LABS: Calcium 10.1 mg/dL (8.6-10.3); Creatinine, Serum 1.16 mg/dL (0.51-0.95); eGFR CKD-EPI 52.3 (>60)
[2023-09-13] MEDS: Tiotropium Brom/Olodaterol MDI (ACUTE) INH SCH (07:23)
[2023-09-13 07:40] LABS: Lithium 0.97 mmol/L (0.6-1.2)
[2023-09-13] MEDS ORDERED: methylPREDNISolone SOD SUCC 40 mg/ml 1 ml VIAL IV SCH (09:00)
[2023-09-13] MEDS: Isosorbide Mononit ER 30mg TAB PO SCH (09:55)
[2023-09-13 11:17] VITALS: BP 139/68
[2023-09-13] MEDS ORDERED: Warfarin - No Order Today **NOTE FOLLOW UP ONE (17:00)
== END 2023-09-13 13:30 | disposition home or self-care (01) | DRG 189 ==
LOC: ED 13:30 → EDHOLD 13:30 → MEDTELE 09-12 08:05
PROVIDERS: ADMIT Internal Medicine; ATTEND Student in an Organized Health Care Education/Training Program

== ENCOUNTER 2024-01-02 13:07 | Inpatient (IN) ==
[2024-01-02 14:58] LABS: ABS Lymphocytes 0.5 10^3/uL (1.0-4.8); ABS Monocytes 0.7 10^3/uL (0.0-0.9); ABS Neutrophils 15.4 10^3/uL (1.5-7.6); ABS Nucleated RBC 0.03 10^3/ul; Hematocrit 36.8 % (35-45); Hemoglobin 11.7 g/dL (11.5-14.3); Lymphocyte % 3.2 %; Mean Corpuscular Hemoglobin 25.8 pg (27-33); Mean Corpuscular Hgb Conc 31.7 g/dL (31-36); Mean Corpuscular Volume 81.3 fL (80-97); Mean Platelet Volume 9.3 fL (7.5-11.2); Nucleated Red Blood Cells % 0.2 %/100WBC (0.0-0.8); Platelet Count 211 10^3/uL (150-450); Red Blood Count 4.53 10^6/uL (3.63-4.92); Red Cell Distribution Width 18.2 % (12-17); White Blood Count 16.7 10^3/uL (3.8-11.8)
[2024-01-02] MEDS: Cefepime 1 GM in Dextrose 1 GM/50 ML BAG IV ONE (15:01)
[2024-01-02] MEDS: Lactated Ringers SEPSIS* BAG 2,520 ML IV ONE (15:01)
[2024-01-02] MEDS: Pantoprazole VIAL 40 MG VIAL IV ONE (15:04)
[2024-01-02] MEDS: Acetaminophen IV 1 GM/100ML 1,000 MG/100 ML BAG IV ONE (15:05)
[2024-01-02 15:12] LABS: Activated Partial Thrombo Time 32.6 seconds (26.0-38.0); INR 1.77 (0.83-1.13)
[2024-01-02 15:32] LABS: High Sens Troponin Baseline 93 pg/mL (<15)
[2024-01-02 15:37] LABS: ALT 14 U/L (7-52); AST 24 U/L (13-39); Albumin 4.5 g/dL (3.2-5.2); Albumin/Globulin Ratio 1.5 (1-3); Alcohol, S < 13 mg/dL (<13); Alkaline Phosphatase 97 U/L (35-149); Anion Gap 15 mmol/L (2-16); Blood Urea Nitrogen 47 mg/dL (6-24); C Reactive Protein 354.73 mg/L (<8.01); CO2 Carbon Dioxide 24 mmol/L (22-32); Calcium 10.7 mg/dL (8.6-10.3); Chloride 104 mmol/L (101-111); Creatinine, Serum 2.83 mg/dL (0.51-0.95); Globulin 3.1 g/dL (2-4); Glucose 139 mg/dL (70-100); Lithium < 0.16 mmol/L (0.6-1.2); Potassium 4.8 mmol/L (3.5-5.0); Sodium 143 mmol/L (135-145); Total Bilirubin 0.6 mg/dL (0.2-1.0); Total Protein 7.6 g/dL (6.4-8.9); eGFR CKD-EPI 17.8 (>60)
[2024-01-02 15:58] LABS: PCO2 Arterial 39 mmHg (35-45); PO2 Arterial 79 mmHg (80-100)
[2024-01-02 16:39] LABS: Creatine Kinase 690 U/L (10-223)
[2024-01-02 16:52] LABS: High Sensitivity Troponin 1 Hr 92 pg/mL (<15)
[2024-01-02 17:33] LABS: Urine Appearance Extra Turbid; Urine Bilirubin 1+ (Negative); Urine Blood 2+ (Negative); Urine Color Yellow; Urine Glucose Trace (Negative); Urine Ketones Trace (Negative); Urine Nitrite Negative (Negative); Urine Protein 2+ (>=100 mg/dL) (Negative); Urine Specific Gravity 1.023 (1.002-1.030); Urine Urobilinogen 1+ (Negative)
[2024-01-02 17:39] LABS: Urine Bacteria 2+ /HPF (Absent); Urine Red Blood Cell 3+(>10/hpf) /HPF (0-Trace); Urine Squamous Epithelial Cell Present /HPF (Absent); Urine White Blood Cell 3+(>20/hpf) /HPF (0-Trace)
[2024-01-02] MEDS: Albuterol/Ipratropium NEB.SOL (2.5/0.5 MG) 3 ML NEB.SOLN INH ONE (19:15)
[2024-01-02] MEDS ORDERED: Lactated Ringers 1000 ml BAG 1,500 ML IV ONE (19:21)
[2024-01-02] MEDS ORDERED: Albuterol/Ipratropium NEB.SOL (2.5/0.5 MG) 3 ML NEB.SOLN INH PRN (19:23)
[2024-01-02] MEDS: cefTRIAXone 1 gm/50 mL D5W 1 GM/50 ML BAG IV SCH (20:11)
[2024-01-02] MEDS: Lactated Ringers 1000 ml BAG 1,500 ML IV ONE (20:32)
[2024-01-02] MEDS: Lactated Ringers 1000 ml BAG 1,000 ML IV ONE (21:45)
[2024-01-03] MEDS: Metoprolol Tartrate 5 mg VIAL 5 ml VIAL (1 mg/ml) IV ONE ×2 (03:40→05:19)
[2024-01-03 06:45] LABS: INR 1.98 (0.83-1.13)
[2024-01-03 06:46] LABS: ABS Eosinophils 0.3 10^3/uL (0.0-0.5); ABS Lymphocytes 0.6 10^3/uL (1.0-4.8); ABS Monocytes 0.5 10^3/uL (0.0-0.9); ABS Neutrophils 7.1 10^3/uL (1.5-7.6); Eosinophil % 3.6 %; Hematocrit 31.4 % (35-45); Hemoglobin 9.9 g/dL (11.5-14.3); Lymphocyte % 6.5 %; Mean Corpuscular Hemoglobin 25.5 pg (27-33); Mean Corpuscular Hgb Conc 31.6 g/dL (31-36); Mean Corpuscular Volume 80.7 fL (80-97); Mean Platelet Volume 8.5 fL (7.5-11.2); Platelet Count 158 10^3/uL (150-450); Red Blood Count 3.89 10^6/uL (3.63-4.92); Red Cell Distribution Width 17.4 % (12-17); White Blood Count 8.5 10^3/uL (3.8-11.8)
[2024-01-03 07:34] LABS: Anion Gap 14 mmol/L (2-16); Blood Urea Nitrogen 47 mg/dL (6-24); CO2 Carbon Dioxide 24 mmol/L (22-32); Calcium 9.4 mg/dL (8.6-10.3); Chloride 110 mmol/L (101-111); Creatine Kinase 519 U/L (10-223); Creatinine, Serum 2.21 mg/dL (0.51-0.95); Glucose 85 mg/dL (70-100); Potassium 4.5 mmol/L (3.5-5.0); Sodium 148 mmol/L (135-145)
[2024-01-03] MEDS ORDERED: Warfarin per PHARMACY **NOTE FOLLOW UP SCH (08:00)
[2024-01-03] MEDS: Tiotropium Brom/Olodaterol MDI (ACUTE) INH SCH (08:02)
[2024-01-03 08:30] LABS: TSH Ultra Thyroid Stim Horm 2.58 mcIU/mL (0.34-5.60)
[2024-01-03 08:41] LABS: Vitamin B12 > 1450 pg/mL (180-914)
[2024-01-03] MEDS: Albuterol/Ipratropium NEB.SOL (2.5/0.5 MG) 3 ML NEB.SOLN INH SCH (12:07)
[2024-01-03] MEDS: Warfarin DAILY REMINDER **NOTE FOLLOW UP SCH (17:10)
[2024-01-03] MEDS ORDERED: Albuterol/Ipratropium NEB.SOL (2.5/0.5 MG) 3 ML NEB.SOLN INH PRN (19:18)
[2024-01-04 06:13] LABS: ABS Lymphocytes 0.4 10^3/uL (1.0-4.8); ABS Monocytes 0.3 10^3/uL (0.0-0.9); ABS Neutrophils 5.1 10^3/uL (1.5-7.6); ABS Nucleated RBC 0.01 10^3/ul; Eosinophil % 0.1 %; Hematocrit 30.7 % (35-45); Hemoglobin 9.8 g/dL (11.5-14.3); Lymphocyte % 7.1 %; Mean Corpuscular Hemoglobin 25.9 pg (27-33); Mean Corpuscular Hgb Conc 31.8 g/dL (31-36); Mean Corpuscular Volume 81.5 fL (80-97); Mean Platelet Volume 8.8 fL (7.5-11.2); Nucleated Red Blood Cells % 0.1 %/100WBC (0.0-0.8); Platelet Count 170 10^3/uL (150-450); Red Blood Count 3.76 10^6/uL (3.63-4.92); White Blood Count 5.8 10^3/uL (3.8-11.8)
[2024-01-04 06:21] LABS: INR 2.42 (0.83-1.13)
[2024-01-04 06:47] LABS: Anion Gap 11 mmol/L (2-16); Blood Urea Nitrogen 46 mg/dL (6-24); CO2 Carbon Dioxide 23 mmol/L (22-32); Chloride 105 mmol/L (101-111); Creatinine, Serum 1.66 mg/dL (0.51-0.95); Glucose 118 mg/dL (70-100); Magnesium 1.7 mg/dL (1.9-2.7); Sodium 139 mmol/L (135-145); eGFR CKD-EPI 33.8 (>60)
[2024-01-04] MEDS: Isosorbide Mononit ER 30mg TAB PO SCH (09:38)
[2024-01-04] MEDS: Magnesium Sulfate 2 gm BAG 2 GM/50 ML BAG IVPB ONE (11:49)
[2024-01-04] MEDS: Magnesium Sulfate IV 1GM/100ML 1 GM/100 ML BAG IV ONE (13:03)
[2024-01-04] MEDS: Ferric Gluconate IV 250 MG in NS 0.9% 250 ml 200 ML IVPB SCH (13:57)
[2024-01-04] MEDS: Nicotine GUM 4MG FRUIT FLAVOR PO PRN (16:47)
[2024-01-05 06:50] LABS: ABS Eosinophils 0.1 10^3/uL (0.0-0.5); ABS Lymphocytes 0.7 10^3/uL (1.0-4.8); ABS Monocytes 0.5 10^3/uL (0.0-0.9); ABS Neutrophils 5.3 10^3/uL (1.5-7.6); Eosinophil % 1.1 %; Hematocrit 29.1 % (35-45); Hemoglobin 9.1 g/dL (11.5-14.3); Lymphocyte % 10.6 %; Mean Corpuscular Hemoglobin 25.5 pg (27-33); Mean Corpuscular Hgb Conc 31.4 g/dL (31-36); Mean Corpuscular Volume 81.1 fL (80-97); Mean Platelet Volume 8.8 fL (7.5-11.2); Nucleated Red Blood Cells % 0.1 %/100WBC (0.0-0.8); Platelet Count 181 10^3/uL (150-450); Red Blood Count 3.58 10^6/uL (3.63-4.92); Red Cell Distribution Width 17.6 % (12-17); White Blood Count 6.5 10^3/uL (3.8-11.8)
[2024-01-05 07:07] LABS: INR 3.09 (0.83-1.13)
[2024-01-05 07:29] LABS: Calcium 9.4 mg/dL (8.6-10.3); Creatinine, Serum 1.62 mg/dL (0.51-0.95); Magnesium 2.3 mg/dL (1.9-2.7); eGFR CKD-EPI 34.8 (>60)
[2024-01-05] MEDS: Warfarin - No Order Today **NOTE FOLLOW UP ONE (21:34)
[2024-01-06 06:26] LABS: INR 2.69 (0.83-1.13)
[2024-01-06] MEDS: Ferric Gluconate IV 250 MG in NS 0.9% 250 ml 200 ML IVPB SCH (09:28)
[2024-01-06] MEDS: cefTRIAXone 1 gm/50 mL D5W 1 GM/50 ML BAG IV SCH (12:15)
[2024-01-06 13:26] VITALS: BP 157/71
== END 2024-01-06 14:35 | disposition home health service (06) | DRG 871 ==
LOC: EDHOLD 13:07 → ED 13:07 → SUATTDRO 17:52 → MED 21:29
PROVIDERS: ADMIT Internal Medicine; ATTEND Student in an Organized Health Care Education/Training Program